=== PATIENT | female | born 1960 | race Caucasian/White ===

== ENCOUNTER 2017-03-17 16:44 | Observation (INO) | payer SELFPAY ==
[2017-03-17 16:45] VITALS: BP 175/63; PULSE 102; RESP 20; TEMP 36.4; O2SAT 94; BMI 50.1
--- NOTE | 2017-03-17 16:55 | EKG12_ITS ---
Test Reason : FLU Blood Pressure : / mmHG Vent. Rate : 088 BPM Atrial Rate : 088 BPM P-R Int : 186 ms QRS Dur : 088 ms QT Int : 352 ms P-R-T Axes : 029 021 028 degrees QTc Int : 425 ms Normal sinus rhythm Nonspecific T wave abnormality Abnormal ECG Confirmed by ANGIE MEYERS, LANDON ([id number]), health editor ROSSANA CASTRO ([id number] on 03/19/2017 2:22:40 PM Referred By: Confirmed By:LANDON ADAMS MD
--- NOTE | 2017-03-17 16:55 | RAD_ITS ---
STUDY: X-RAY CHEST REASON FOR EXAM: Female, 57 years old. Fever with cough. TECHNIQUE: Single AP portable upright view of the chest. COMPARISON: Portable AP upright chest x-ray February 02, 2016. FINDINGS: The lungs are clear and moderately expanded. There is no demonstrated pleural abnormality. Normal size heart. Normal mediastinum and stefany. Normal visualized pulmonary arteries. There is stable tortuosity of the descending thoracic aorta. Normal visualized thoracic spine. Normal visualized ribs, clavicles, and shoulders. There is no demonstrated abnormality of the visualized soft tissue structures of the upper abdomen. RAD/Chest 1 View (Portable) IMPRESSION: No acute cardiopulmonary disease. Electronically Signed: Ayo Wang MD at 17:26 EST , Service support ,
--- NOTE | 2017-03-17 16:59 | ED.VISSUMM ---
- ER Visit Summary Date of Service: 03/17/17 Chief Complaint: Flu like symptoms History of Present Illness: The patient is a 57 F presenting with flulike symptoms. She states that she has been sick since Wednesday. She has had subjective fevers and myalgias. She has had a nonproductive cough. She complains of bilateral ear pain and sore throat. She complains of headache. She denies numbness or weakness. Denies abdominal pain, nausea, vomiting, diarrhea. She did receive a flu shot this year. She is taking ibuprofen at home. She complains of chest pain and shortness of breath. Denies other complaints. Physical Examination: Vitals are stable. Patient is afebrile. Alert no acute distress. HEENT exam is unremarkable. Neck is supple. Lungs are clear and equal bilaterally. Heart is regular and tachycardic. Abdomen is soft and nontender. Extremities are unremarkable. Skin is warm and dry. No focal neurologic deficit. Remainder of exam is unremarkable. Emergency Department Course and Treatment: She was given IV fluids. Chest x-ray shows no acute process. EKG is sinus rate of 88 with nonspecific T-wave changes. CBC is normal except for white count 3.8. Chemistries normal except BUN 19, creatinine 1.07. Troponin is negative. D-dimer 0.76. Influenza negative. CTA chest was obtained due to elevated d-dimer and is suboptimal with questionable PE left pulmonary artery, 4.5 cm aneurysm aorta with no dissection. Due to suboptimal CTA chest with elevated d-dimer and chest pain with tachycardia discussed with the hospitalist. Patient will be evaluated by Dr. Samayoa in the emergency department. Disposition: Observation Impression: Flu like illness, chest pain This note was generated with [employer] dictation software. It may contain incorrect words, spelling, and punctuation that were not noted in review of the chart prior to signing ED Disposition - Plan for ED Patient: Disposition: Acute Care Hospital [facility] Chief Complaint: General Illness
[2017-03-17 17:27] VITALS: BP 142/93; PULSE 90; RESP 20; O2SAT 92
[2017-03-17] MEDS: 0.9% Normal Saline 1,000 ML 1000 ML IV (17:28)
[2017-03-17 17:55] LABS: Absolute Lymphocyte Count 1.14 X10^3/ul (0.83-4.51); Absolute Neutrophil Count 1.7 X10^3/uL (2.0-7.7); Basophil# 0.02 X10^3/uL; Basophil% 0.5 % (0-1); Eosinophil# 0.11 X10^3/uL; Eosinophils% 2.9 % (0-5); Hematocrit 44.4 % (37-47); Hemoglobin 14.7 g/dl (12.0-15.0); Lymphocyte # 1.14 X10^3/ul (4.0); Lymphocyte % 30.3 % (19-41); Mean Corp Hgb Conc 33.1 g/gl (32-36); Mean Corpuscular Hgb 30.3 pg (27.0-32.0); Mean Corpuscular Volume 91.5 fL (81-99); Mean Platelet Vol. 10.5 fl (6.2-12.0); Monocyte# 0.74 X10^3/uL; Monocyte% 19.7 % (0-10); Neutrophil # 1.74 X10^3/uL (2.7-7.7); Neutrophil % 46.3 % (47-70); Platelet Count 183 K/mm3 (150-450); RBC Distribution Width CV 13.3 % (11.6-14.6); RBC Distribution Width SD 44.3 fl (35.1-43.9); Red Blood Count 4.85 M/mm3 (4.2-5.4); White Blood Count 3.8 K/mm3 (4.4-11.0)
[2017-03-17 18:13] LABS: D-Dimer Quantitative (DVT/PE) 0.76 FEU/ug/m (0.27-0.49)
--- NOTE | 2017-03-17 18:14 | ED.RN ---
DDIMER 0.76, DR. JARAMILLO AWARE.
[2017-03-17 18:15] LABS: POSITIVE COUNT NO; POSITIVE DIFFERENTIAL NO; POSITIVE MORPHOLOGY NO
--- NOTE | 2017-03-17 18:16 | CT_ITS ---
STUDY: CTA CHEST REASON FOR EXAM: Female, 57 years old. Cough, elevated d-dimer. RADIATION DOSAGE (If Supplied By Facility): CTDIvol = ( 33.29 ) mGy, DLP = ( 972.04 ) mGycm TECHNIQUE: The examination was performed with the intravenous administration of 100ML ml of Isovue 370 contrast material. Post-processing of the angiographic images was performed, with multiplanar reformation and 3D reconstruction. Individualized dose optimization techniques were used for this CT. COMPARISON: Portable AP upright chest x-ray 1709 hours. FINDINGS: Suboptimal enhancement of the main pulmonary artery and right and left pulmonary arteries compared to the left heart and thoracic aorta. Suboptimal enhancement of the bilateral peripheral pulmonary arteries. Diagnostic accuracy is limited. There is question of filling defect in a basilar left lower lobe pulmonary artery branch on series 601 images 178-184. There is 4.3 x 4.35 cm fusiform ectasia of the mid ascending aorta. At that same level, the mildly tortuous descending thoracic aorta is 2.15 x 1.9 cm. There is no demonstrated aortic dissection. Normal heart and pericardium. Normal mediastinum. Normal hilar regions. Normal visualized trachea and bronchi. The lungs are well expanded. Curvilinear density of probable scarring in the lingula of the left upper lobe. Otherwise normal pulmonary parenchyma. Normal pleura. Normal chest wall structures. There are degenerative changes of the lower thoracic spine with endplate osteophytes most prominent on the left at T11-12. Normal visualized upper abdomen. CT/CTA Chest W/WO Contrast IMPRESSION: 1. Suboptimal enhancement of the pulmonary arteries, limiting diagnostic accuracy. Question of nonocclusive pulmonary embolus in a basilar lobe branch of the left pulmonary artery. If clinical indication warrants additional imaging, nuclear medicine ventilation/perfusion scan is suggested. 2. 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 There is no demonstrated dissection. 3. Curvilinear scarring in the lingula of the left upper lobe. Electronically Signed: Ayo Wang MD at 19:30 EST , Service support ,
[2017-03-17 18:27] LABS: Anion Gap 8 (5-15); BUN 19 mg/dL (7-18); BUN/Creat Ratio 17.8 RATIO (10-20); Calcium,Total 8.8 mg/dL (8.5-10.1); Chloride 102 mmol/L (98-107); Creatinine, Serum 1.07 mg/dL (0.55-1.02); EST Glomerular Filtration Rate 56 mL/min (>60); Est Glom Filt Rate - Afr Amer 68 mL/min (>60); Estimated Creatinine Clearance 56.41 ml/min; Glucose 103 mg/dL (74-106); Potassium 3.8 mmol/L (3.5-5.1); Sodium Level 137 mmol/L (136-145)
[2017-03-17 19:43] VITALS: BP 136/91; PULSE 79; RESP 16; O2SAT 96
--- NOTE | 2017-03-17 20:43 | PCM.HP.STD ---
Problem List (1) Influenza Status: Acute (2) Pulmonary embolism Status: Acute Qualifiers: Pulmonary embolism type: other Chronicity: acute Acute cor pulmonale presence: without acute cor pulmonale Qualified Code(s): I26.99 - Other pulmonary embolism without acute cor pulmonale (3) Hypothyroid Status: Chronic (4) Depression Status: Chronic (5) Vertigo Status: Chronic History of Present Illness Date of Admission: 03/17/17 Chief Complaint: malaise and chest pain. The patient is a 57 year old F who has been ill since Wednesday, w malaise, fever, chills. Today started having anterior chest pain. Since she was not feeling any better came to the ED. She had an elevated D-dimer of 0.76 and underwent a CTA of the chest. The CTA had suboptimal enhancement of the PAs, but questioned a nonocclusive PE in a basilar low on the left. Pt also had a rapid flu that was negative. I discussed with the patient that she may have a provoke PE given relative imobility the past few days due to her illness. I told that a low probability VQ scan may not change my plan to treat her for a PE and recommended either 6 months of a NOAC v repeat CTA after IV hydration. She chose the latter, preferring to know she does have a PE or not, understanding the risks of repeat exposure to radiation and contrast.[] Past Medical History Past Medical History (Chronic Problems): Chronic Problems Hypothyroid (Chronic) Depression (Chronic) Vertigo (Chronic) Allergies oxycodone Adverse Reaction (Verified 03/17/17 16:46) Itching Home Medications: Ambulatory Orders Medication Instructions Recorded Arthritis Medication 1 tab PO DAILY 02/02/16 Levothyroxine [Synthroid] 50 mcg PO DAILY 02/02/16 Ondansetron [Zofran Odt] 4 mg PO Q8H PRN PRN #20 tablet 02/02/16 Cholecalciferol (Vitamin D3) 50,000 unit PO QWEEK 06/03/16 [Vitamin D] Citalopram Hydrobromide 20 mg PO DAILY 06/03/16 [Citalopram HBr] Diclofenac [Voltaren] 50 mg PO BIDCM 06/03/16 DiphenhydrAMINE [Benadryl] 25 mg PO BID PRN PRN #7 capsule 06/03/16 Hydrocodone/Acetaminophen [[place] 1 each PO Q4H PRN PRN #14 tablet 06/03/16 5-325 Tablet] Loratadine [Allergy Relief] 10 mg PO DAILY 06/03/16 Meclizine HCl [Antivert] 25 mg PO TID PRN PRN 06/03/16 Psychiatric History: Depression Smoking Status: Never smoker Tobacco Use: Non-smoker Alcohol: Rare - *Family History Maternal History Items: Diabetes, - - h/o pancreatitis w pseudocysts. Review of Systems Constitutional: Reports: Chills, Fever, Night Sweats, Malaise, Weakness. Denies: Anorexia Eyes: Denies: Blurred vision, Double vision HEENT: Denies: Head Aches, Sinus Congestion, Sinus Drainage Cardiovascular: Reports: Chest Pain, Edema - chronic, no acute changes. Denies: Palpitations Respiratory: Denies: Cough, Shortness of breath at rest, Sputum production Gastrointestinal: Denies: Abdominal Pain, Nausea, Vomiting Genitourinary: Denies: Dysuria Musculoskeletal: Denies: Joint Pain, Joint Tenderness Skin: Denies: Rash, Wounds Neurological: Reports: - - vertigo. Denies: Focal weakness, Numbness, Tingling Psychiatric: Reports: Depression. Denies: Anxiety Hematologic/ Lymphatic: Denies: Easy Bruising, Easy Bleeding VTE Information - Inpt Only VTE Present on Admission: Yes Patient Problems: Active and Suspected Problems Influenza (Acute) Pulmonary embolism (Acute) - Physical Exam General: Alert, Cooperative, No apparent distress, Well developed HEENT: Atraumatic, Normocephalic Oral: Moist Mucosa, No Gingival or Mucosal Lesions/ Ulcerations Neck: No Nodes, Thyroid Normal Size and Texture Lungs: Clear to auscultation, Normal air movement, No rhonchi, No wheeze Cardiovascular: Regular rate, Regular Rhythm, Normal S1, Normal S2 Abdomen: Bowel Sounds Present, Soft, Non Tender, Non-Distended, No Hepato-splenomegaly Extremities: No edema, No Calf Tenderness Skin: No rashes, No breakdown Musculoskeletal: No Tenderness to Palpation of Joints or Extremities, No Muscle Wasting Neurological: Deep Tendon Reflexes 2+/4 and Symmetrical, Neuro grossly intact, Sensory exam intact to light touch and pain, - - no clonus Psych/Mental Status: Normal Affect, Appropriate Vital Signs Temp Pulse Resp BP Pulse Ox 36.4 C L 79 16 136/91 H 96 03/17/17 16:45 03/17/17 19:43 03/17/17 19:43 03/17/17 19:43 03/17/17 19:43 Oxygen Delivery Method Room Air Weight: 145 kg Body Mass Index (BMI) 50.1 Microbiology Past 72 Hours 03/17/17 17:10 Influenza Types A,B Direct FA (ZACK) - Final Mucosa - Nasopharyngeal Laboratory Tests Past 24 Hrs 03/17/17 03/17/17 03/17/17 17:19 17:19 17:19 WBC 3.8 L RBC 4.85 Hgb 14.7 Hct 44.4 MCV 91.5 MCH 30.3 MCHC 33.1 RDW 13.3 RDW Differential 44.3 H Plt Count 183 MPV 10.5 Immature Gran % (Auto) 0.300 Neut % (Auto) 46.3 L Lymph % (Auto) 30.3 [place] % (Auto) 19.7 H Eos % (Auto) 2.9 Baso % (Auto) 0.5 Absolute Neuts (auto) 1.7 L Absolute Lymphs (auto) 1.14 Total Counted Not Reportable D-Dimer Quant (PE/DVT) 0.76 H* Sodium 137 Potassium 3.8 Chloride 102 Carbon Dioxide 27.0 Anion Gap 8 BUN 19 H Creatinine 1.07 H Estim Creat Clear Calc 56.41 Est GFR (MDRD) Af Amer 68 Est GFR (MDRD) Non-Af 56 L BUN/Creatinine Ratio 17.8 Glucose 103 Calcium 8.8 Troponin I < 0.02 Clinical Impression(s) from Imaging Studies Chest X-Ray 03/17/17 16:55 IMPRESSION: No acute cardiopulmonary disease. Electronically Signed: Ayo Wang MD at 17:26 EST , Service support , Chest CTA 03/17/17 18:16 IMPRESSION: 1. Suboptimal enhancement of the pulmonary arteries, limiting diagnostic accuracy. Question of nonocclusive pulmonary embolus in a basilar lobe branch of the left pulmonary artery. If clinical indication warrants additional imaging, nuclear medicine ventilation/perfusion scan is suggested. 2. 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 There is no demonstrated dissection. 3. Curvilinear scarring in the lingula of the left upper lobe. Electronically Signed: Ayo Wang MD at 19:30 EST , Service support , EKG reviewed and showed NSR w [id number] pattern Assessment/Plan Active and Suspected Problems Influenza (Acute) Pulmonary embolism (Acute) 1. Suspected PE start xarelto recheck CTA of chest, as I feel, a low probability VQ would not alter my treatment for her. I did recommend against repeat CTA and treating her for PE w NOACs given her recent relative immobility + EKG changes (though nonspecific). So, she will receive IVF and will repeat CTA on 03/18, if CTA negative for PE, then dc anticoagulation. If positive, will have case mgmt assist for med coverage as pt has no insurance (I did recommend, as per guidelines, NOACs >> coumadin) pt states her mother had history of phlebitis and was on coumadin, but unsure if she had a coagulopathy. 2. suspected influenza rapid flu negative check viral resp panel empirically start tamiflu Code Visit OBSV E&M: [id number] Initial observation care L3
--- NOTE | 2017-03-17 20:57 | HP.PCM_ITS ---
Problem List (1) Influenza Status: Acute (2) Pulmonary embolism Status: Acute Qualifiers: Pulmonary embolism type: other Chronicity: acute Acute cor pulmonale presence: without acute cor pulmonale Qualified Code(s): I26.99 - Other pulmonary embolism without acute cor pulmonale (3) Hypothyroid Status: Chronic (4) Depression Status: Chronic (5) Vertigo Status: Chronic History of Present Illness Date of Admission: 03/17/17 Chief Complaint: malaise and chest pain. The patient is a 57 year old F who has been ill since Wednesday, w malaise, fever , chills. Today started having anterior chest pain. Since she was not feeling any better came to the ED. She had an elevated D-dimer of 0.76 and underwent a CTA of the chest. The CTA had suboptimal enhancement of the PAs, but questioned a nonocclusive PE in a basilar low on the left. Pt also had a rapid flu that was negative. I discussed with the patient that she may have a provoke PE given relative imobility the past few days due to her illness. I told that a low probability VQ scan may not change my plan to treat her for a PE and recommended either 6 months of a NOAC v repeat CTA after IV hydration. She chose the latter, preferring to know she does have a PE or not, understanding the risks of repeat exposure to radiation and contrast.[] Past Medical History Past Medical History (Chronic Problems): Chronic Problems Hypothyroid (Chronic) Depression (Chronic) Vertigo (Chronic) Allergies oxycodone Adverse Reaction (Verified 03/17/17 16:46) Itching Home Medications: Ambulatory Orders Medication Instructions Recorded Arthritis Medication 1 tab PO DAILY 02/02/16 Levothyroxine [Synthroid] 50 mcg PO DAILY 02/02/16 Ondansetron [Zofran Odt] 4 mg PO Q8H PRN PRN #20 tablet 02/02/16 Cholecalciferol (Vitamin D3) 50,000 unit PO QWEEK 06/03/16 [Vitamin D] Citalopram Hydrobromide 20 mg PO DAILY 06/03/16 [Citalopram HBr] Diclofenac [Voltaren] 50 mg PO BIDCM 06/03/16 DiphenhydrAMINE [Benadryl] 25 mg PO BID PRN PRN #7 capsule 06/03/16 Hydrocodone/Acetaminophen [[place] 1 each PO Q4H PRN PRN #14 tablet 06/03/16 5-325 Tablet] Loratadine [Allergy Relief] 10 mg PO DAILY 06/03/16 Meclizine HCl [Antivert] 25 mg PO TID PRN PRN 06/03/16 Psychiatric History: Depression Smoking Status: Never smoker Tobacco Use: Non-smoker Alcohol: Rare - *Family History Maternal History Items: Diabetes, - - h/o pancreatitis w pseudocysts. Review of Systems Constitutional: Reports: Chills, Fever, Night Sweats, Malaise, Weakness. Denies : Anorexia Eyes: Denies: Blurred vision, Double vision HEENT: Denies: Head Aches, Sinus Congestion, Sinus Drainage Cardiovascular: Reports: Chest Pain, Edema - chronic, no acute changes. Denies : Palpitations Respiratory: Denies: Cough, Shortness of breath at rest, Sputum production Gastrointestinal: Denies: Abdominal Pain, Nausea, Vomiting Genitourinary: Denies: Dysuria Musculoskeletal: Denies: Joint Pain, Joint Tenderness Skin: Denies: Rash, Wounds Neurological: Reports: - - vertigo. Denies: Focal weakness, Numbness, Tingling Psychiatric: Reports: Depression. Denies: Anxiety Hematologic/ Lymphatic: Denies: Easy Bruising, Easy Bleeding VTE Information - Inpt Only VTE Present on Admission: Yes Patient Problems: Active and Suspected Problems Influenza (Acute) Pulmonary embolism (Acute) - Physical Exam General: Alert, Cooperative, No apparent distress, Well developed HEENT: Atraumatic, Normocephalic Oral: Moist Mucosa, No Gingival or Mucosal Lesions/ Ulcerations Neck: No Nodes, Thyroid Normal Size and Texture Lungs: Clear to auscultation, Normal air movement, No rhonchi, No wheeze Cardiovascular: Regular rate, Regular Rhythm, Normal S1, Normal S2 Abdomen: Bowel Sounds Present, Soft, Non Tender, Non-Distended, No Hepato- splenomegaly Extremities: No edema, No Calf Tenderness Skin: No rashes, No breakdown Musculoskeletal: No Tenderness to Palpation of Joints or Extremities, No Muscle Wasting Neurological: Deep Tendon Reflexes 2+/4 and Symmetrical, Neuro grossly intact, Sensory exam intact to light touch and pain, - - no clonus Psych/Mental Status: Normal Affect, Appropriate Vital Signs Temp Pulse Resp BP Pulse Ox 36.4 C L 79 16 136/91 H 96 03/17/17 16:45 03/17/17 19:43 03/17/17 19:43 03/17/17 19:43 03/17/17 19:43 Oxygen Delivery Method Room Air Weight: 145 kg Body Mass Index (BMI) 50.1 Microbiology Past 72 Hours 03/17/17 17:10 Influenza Types A,B Direct FA (ZACK) - Final Mucosa - Nasopharyngeal Laboratory Tests Past 24 Hrs 03/17/17 03/17/17 03/17/17 17:19 17:19 17:19 WBC 3.8 L RBC 4.85 Hgb 14.7 Hct 44.4 MCV 91.5 MCH 30.3 MCHC 33.1 RDW 13.3 RDW Differential 44.3 H Plt Count 183 MPV 10.5 Immature Gran % (Auto) 0.300 Neut % (Auto) 46.3 L Lymph % (Auto) 30.3 [place] % (Auto) 19.7 H Eos % (Auto) 2.9 Baso % (Auto) 0.5 Absolute Neuts (auto) 1.7 L Absolute Lymphs (auto) 1.14 Total Counted Not Reportable D-Dimer Quant (PE/DVT) 0.76 H* Sodium 137 Potassium 3.8 Chloride 102 Carbon Dioxide 27.0 Anion Gap 8 BUN 19 H Creatinine 1.07 H Estim Creat Clear Calc 56.41 Est GFR (MDRD) Af Amer 68 Est GFR (MDRD) Non-Af 56 L BUN/Creatinine Ratio 17.8 Glucose 103 Calcium 8.8 Troponin I < 0.02 Clinical Impression(s) from Imaging Studies Chest X-Ray 03/17/17 16:55 IMPRESSION: No acute cardiopulmonary disease. Electronically Signed: Ayo Wang MD at 17:26 EST , Service support , Chest CTA 03/17/17 18:16 IMPRESSION: 1. Suboptimal enhancement of the pulmonary arteries, limiting diagnostic accuracy. Question of nonocclusive pulmonary embolus in a basilar lobe branch of the left pulmonary artery. If clinical indication warrants additional imaging, nuclear medicine ventilation/perfusion scan is suggested. 2. 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 There is no demonstrated dissection. 3. Curvilinear scarring in the lingula of the left upper lobe. Electronically Signed: Ayo Wang MD at 19:30 EST , Service support , EKG reviewed and showed NSR w [id number] pattern Assessment/Plan Active and Suspected Problems Influenza (Acute) Pulmonary embolism (Acute) 1. Suspected PE * start xarelto * recheck CTA of chest, as I feel, a low probability VQ would not alter my treatment for her. I did recommend against repeat CTA and treating her for PE w NOACs given her recent relative immobility + EKG changes (though nonspecific). So, she will receive IVF and will repeat CTA on 03/18, if CTA negative for PE, then dc anticoagulation. If positive, will have case mgmt assist for med coverage as pt has no insurance (I did recommend, as per guidelines, NOACs >> coumadin) * pt states her mother had history of phlebitis and was on coumadin, but unsure if she had a coagulopathy. 2. suspected influenza * rapid flu negative * check viral resp panel * empirically start tamiflu Code Visit OBSV E&M: [id number] Initial observation care L3
[2017-03-17 21:04] VITALS: BP 148/82; PULSE 78; RESP 20; O2SAT 96
[2017-03-17 21:05] VITALS: BP 148/82; PULSE 78; RESP 20; O2SAT 96
[2017-03-17 21:31] VITALS: BMI 48.4; BMI 48.5
[2017-03-17 22:00] VITALS: BP 129/84; PULSE 86; RESP 18; TEMP 37.3; O2SAT 95
[2017-03-17] MEDS: 0.9% Normal Saline 1,000 ML 200 ML IV (22:43)
[2017-03-17] MEDS: Citalopram 20 MG Tablet PO (22:43)
[2017-03-17] MEDS: 0.9% NaCl Peripheral Flush Adult/Peds IV (22:43)
[2017-03-17] MEDS: Rivaroxaban 15 MG Tablet PO (22:44)
[2017-03-17] MEDS: Oseltamivir Phosphate 30 MG Capsule PO (22:44)
[2017-03-18 03:44] VITALS: BP 125/74; PULSE 79; RESP 16; TEMP 37.1; O2SAT 98
[2017-03-18] MEDS: HYDROcodone Bitartrate/Apap 5/325 Tablet PO ×2 (03:53→09:54)
[2017-03-18] MEDS: Levothyroxine 50 MCG Tablet PO (05:38)
--- NOTE | 2017-03-18 05:55 | CT_ITS ---
STUDY: CTA CHEST REASON FOR EXAM: Female, 57 years old. Chest pain RADIATION DOSAGE (If Supplied By Facility): CTDIvol = ( 23.82 ) mGy, DLP = ( 984.08 ) mGycm TECHNIQUE: The examination was performed with the intravenous administration of 100 ml of Isovue 370 contrast material. Post-processing of the angiographic images was performed, with multiplanar reformation and 3D reconstruction. Individualized dose optimization techniques were used for this CT. COMPARISON: Primary 2017 FINDINGS: There is suboptimal enhancement of the main pulmonary artery and right and left pulmonary arteries. There is suboptimal enhancement of the bilateral peripheral pulmonary arteries. There is no gross demonstrated pulmonary embolism. The ascending aorta measures 4.7 x 4.6 cm in diameter. The descending aorta measures 2.2 x 2.2 cm in diameter There is no demonstrated aortic dissection. Normal heart and pericardium. Normal mediastinum. Normal hilar regions. Normal visualized trachea and bronchi. There is minimal atelectasis within the mid and lower left lung. Normal chest wall structures. There are degenerative changes of thoracic spine. The limited images of the upper abdomen demonstrate diffusely low in attenuation liver consistent with fatty infiltration. CT/CTA Chest W/WO Contrast IMPRESSION: No demonstrated pulmonary embolism or arterial dissection. Minimal left-sided atelectasis. Ascending aortic aneurysm. Fatty infiltration of the liver. Electronically Signed: Nichelle Nieves MD at 19:13 EST Tel , Service support ,
[2017-03-18 06:21] LABS: Absolute Lymphocyte Count 1.12 X10^3/ul (0.83-4.51); Absolute Neutrophil Count 1.1 X10^3/uL (2.0-7.7); Basophil# 0.02 X10^3/uL; Basophil% 0.7 % (0-1); Eosinophil# 0.06 X10^3/uL; Hematocrit 38.6 % (37-47); Lymphocyte # 1.12 X10^3/ul (4.0); Lymphocyte % 36.5 % (19-41); Mean Corp Hgb Conc 33.7 g/gl (32-36); Mean Corpuscular Hgb 30.9 pg (27.0-32.0); Mean Corpuscular Volume 91.7 fL (81-99); Mean Platelet Vol. 10.6 fl (6.2-12.0); Monocyte# 0.78 X10^3/uL; Monocyte% 25.4 % (0-10); Neutrophil # 1.08 X10^3/uL (2.7-7.7); Neutrophil % 35.1 % (47-70); Platelet Count 166 K/mm3 (150-450); RBC Distribution Width CV 13.2 % (11.6-14.6); RBC Distribution Width SD 43.9 fl (35.1-43.9); Red Blood Count 4.21 M/mm3 (4.2-5.4); White Blood Count 3.1 K/mm3 (4.4-11.0)
[2017-03-18 06:23] LABS: POSITIVE COUNT NO; POSITIVE DIFFERENTIAL NO; POSITIVE MORPHOLOGY NO
[2017-03-18 06:50] LABS: Anion Gap 10 (5-15); BUN 18 mg/dL (7-18); BUN/Creat Ratio 19.8 RATIO (10-20); Calcium,Total 8.1 mg/dL (8.5-10.1); Chloride 104 mmol/L (98-107); Creatinine, Serum 0.91 mg/dL (0.55-1.02); EST Glomerular Filtration Rate 68 mL/min (>60); Est Glom Filt Rate - Afr Amer 82 mL/min (>60); Estimated Creatinine Clearance 66.33 ml/min; Glucose 106 mg/dL (74-106); Potassium 4.2 mmol/L (3.5-5.1); Sodium Level 138 mmol/L (136-145)
[2017-03-18] MEDS: DiphenhydrAMINE 25 MG Capsule PO (07:07)
[2017-03-18] MEDS: Loratadine 10 MG Tablet PO (08:26)
[2017-03-18] MEDS: Oseltamivir Phosphate 30 MG Capsule PO (08:26)
[2017-03-18] MEDS: Rivaroxaban 15 MG Tablet PO ×2 (08:27→16:44)
[2017-03-18 08:32] VITALS: BP 127/77; PULSE 67; RESP 16; TEMP 36.7; O2SAT 95
[2017-03-18 11:09] VITALS: BP 136/90; PULSE 75; RESP 16; TEMP 36.4; O2SAT 95
[2017-03-18] MEDS: Nystatin Powder 15gm Bottle 1 APPLIC TOPICAL (12:20)
--- NOTE | 2017-03-18 13:15 | CASEMGMT ---
Social Work Note Face to face with pt to discuss discharge planning. Introduced self and role at [facility]. Pt reports that she was working last year, had a lapse in employment and was on Medicaid and then was employed again, but for fewer hours and less income. States that she intends on reapplying for Medicaid and providing proof of lower income. Offer Medicaid application to pt and inform that SW can fax once completed to have process initiated. Pt reports that she can fax it from work. States she does not have money for medications if needed. Educate to community resources/options. Will try [facility] if she needs medications and if they are unable to assist will implement RX Assist program. SW to continue to follow and assist with discharge planning. Lidya Bentley, PATIENT ASSESSMENT COORDINATOR [employer]
--- NOTE | 2017-03-18 13:50 | PN_ITS ---
Patient Problems: Active and Suspected Problems Influenza (Acute) Pulmonary embolism (Acute) Subjective: Chief complaint: Follow-up after admission for influenza B and questionable pulmonary embolism. Patient seen and examined. No acute events overnight.. Denied shortness of breath. Reported mild nasal congestion which improved. Vital signs are stable , afebrile. - Physical Exam General: Alert, Oriented x3, Cooperative, No apparent distress HEENT: Atraumatic, PERRLA, EOMI Oral: Moist Mucosa, No Gingival or Mucosal Lesions/ Ulcerations Neck: Supple, No JVD, Negative Carotid Bruits, Trachea Midline, Thyroid Normal Size and Texture Lungs: Clear to auscultation, No rhonchi, No wheeze, No rales, Diminished Cardiovascular: Regular rate, Regular Rhythm, Normal S1, Normal S2, No murmurs, PMI Normal Abdomen: Bowel Sounds Present, Soft, Non Tender, Non-Distended, No Hepato- splenomegaly Extremities: No clubbing, No cyanosis, No edema Skin: No rashes, No breakdown Lymphatic: No Cervical, Supraclavicular, or Inguinal Adenopathy Neurological: Cranial nerves II-XII grossly intact, Motor Exam 5/5 strength throughout Psych/Mental Status: Normal Affect, Appropriate, Alert and oriented to time, place, person, mood and affect Vital Signs Temp Pulse Resp BP Pulse Ox 97.5 F L 75 16 136/90 H 95 03/18/17 11:09 03/18/17 11:09 03/18/17 11:09 03/18/17 11:09 03/18/17 11:09 Oxygen Delivery Method Room Air Weight: 314 lb 2.539 oz Body Mass Index (BMI) 48.4 Intake and Output for Last 24 Hours 03/16/17 03/17/17 03/18/17 23:59 23:59 23:59 Intake Total 600 / 600 Output Total 300 / 300 Balance 300 / 300 Microbiology Past 72 Hours 03/17/17 23:00 Respiratory Panel (PCR) - Final Mucosa - Nasopharyngeal Influenza A (Subtype H3) Laboratory Tests Past 24 Hrs 03/18/17 03/18/17 05:52 05:52 WBC 3.1 L RBC 4.21 Hgb 13.0 Hct 38.6 MCV 91.7 MCH 30.9 MCHC 33.7 RDW 13.2 RDW Differential 43.9 Plt Count 166 MPV 10.6 Immature Gran % (Auto) 0.300 Neut % (Auto) 35.1 L Lymph % (Auto) 36.5 [place] % (Auto) 25.4 H Eos % (Auto) 2.0 Baso % (Auto) 0.7 Absolute Neuts (auto) 1.1 L Absolute Lymphs (auto) 1.12 Total Counted Not Reportable Sodium 138 Potassium 4.2 Chloride 104 Carbon Dioxide 24.0 Anion Gap 10 BUN 18 Creatinine 0.91 Estim Creat Clear Calc 66.33 Est GFR (MDRD) Af Amer 82 Est GFR (MDRD) Non-Af 68 BUN/Creatinine Ratio 19.8 Glucose 106 Calcium 8.1 L Clinical Impression(s) from Imaging Studies Chest X-Ray 03/17/17 16:55 IMPRESSION: No acute cardiopulmonary disease. Electronically Signed: Ayo Wang MD at 17:26 EST , Service support , Chest CTA 03/17/17 18:16 IMPRESSION: 1. Suboptimal enhancement of the pulmonary arteries, limiting diagnostic accuracy. Question of nonocclusive pulmonary embolus in a basilar lobe branch of the left pulmonary artery. If clinical indication warrants additional imaging, nuclear medicine ventilation/perfusion scan is suggested. 2. 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 There is no demonstrated dissection. 3. Curvilinear scarring in the lingula of the left upper lobe. Electronically Signed: Ayo Wang MD at 19:30 EST , Service support , Assessment/Plan Active and Suspected Problems Influenza (Acute) Pulmonary embolism (Acute) This is a 57 years old female patient presented to the emergency room because of flulike symptoms as well as chest pain which seemed to be pleuritic, found to have acute influenza B as well as questionable pulmonary embolus in the basilar lobe branch of the left pulmonary artery. #1 acute influenza B: On Tamiflu. She is on Tylenol and she was on IV fluids. She reported improvement of her symptoms. Chest x-ray showed no acute findings. Plan: Continue same treatment. If the repeat CTA chest returned back negative for acute PE, patient can be discharged home later today. She will be discharged on Tamiflu to complete 5 days of treatment. #2 questionable left pulmonary embolus: This involved basal branch of the left pulmonary artery, which was questionable. Patient was started empirically on Xarelto for anticoagulation. She has no risk factors for blood clots. Clinical evidence of acute DVT. Plan to repeat CTA chest later today as she received contrast yesterday for the CTA chest. We will continue empiric Xarelto for now. #3 hypothyroidism: Continue levothyroxine. #4 depression: Continue Celexa. #5 chronic vertigo: Continue Antivert as needed #6 DVT prophylaxis: Continue Xarelto. This note was generated with [employer] dictation software. It may contain incorrect words, spelling, and punctuation that were not noted in checking the note before signing.
--- NOTE | 2017-03-18 13:51 | PCM.DC ---
- Discharge Diagnoses Current Active Problems: Current Active and Chronic Problems Influenza (Acute) Pulmonary embolism (Acute) Hypothyroid (Chronic) Depression (Chronic) Vertigo (Chronic) You will use the following diet at home:: Regular Your food should be the consistency of: Regular Discharge Activity: Return to Normal Activity Weight Bearing Status: Full weight bearing Call your doctor if you observe: Fever of 101 or Higher, Shortness of breath, Dizziness, Fainting spells, Chest pain, Increased palpitations (irregular heartbeat), Uncontrolled pain Allergies/Adverse Reactions: Allergies oxycodone Adverse Reaction (Verified 03/17/17 16:46) Itching Medications to take at Discharge Arthritis Medication 1 tab PO DAILY 02/02/16 Levothyroxine [Synthroid] 50 mcg PO DAILY 02/02/16 Ondansetron [Zofran Odt] 4 mg PO Q8H PRN PRN #20 tablet 02/02/16 Citalopram Hydrobromide [Citalopram HBr] 20 mg PO QHS 06/03/16 Loratadine [Allergy Relief] 10 mg PO QHS PRN PRN 06/03/16 Meclizine HCl [Antivert] 25 mg PO TID PRN PRN 06/03/16 Oseltamivir Phosphate [Tamiflu] 30 mg PO BID #8 cap 03/18/17 The following prescriptions were given: Oseltamivir Phosphate [Tamiflu] 30 mg PO BID #8 cap Primary Care Physician: Marta Lyle DO [Primary Care Provider] - Please follow up with your Primary Care Physician in: 4 week.
[2017-03-18] MEDS: 0.9% Normal Saline 1,000 ML 100 ML IV (15:09)
[2017-03-18] MEDS: Acetylcysteine (Mucomyst Oral) 20% SOLN 600 MG PO (15:09)
[2017-03-18 15:15] VITALS: BP 131/66; PULSE 66; RESP 16; TEMP 36.7; O2SAT 95
--- NOTE | 2017-03-18 15:42 | CASEMGMT ---
Social Work Note Placed call to [facility] to have script for Tamiflu priced. Generic would be $79.87. Updated pt and she reports that she only has $3 to her name right now. Inform that SW will check alternative resources. Placed call to [facility] who state that they are not able to assist at this time. Discussed script with transportation operations manager, Olga, as our pharmacy only has 75 mg in stock, not 30. RN spoke with physician who approved change in dosing. Submitted form for RX Assist Program and requested that medication be delivered to the pt's room as she will not discharge until late this evening. Scripts and completed Rx Assist Form tubed to pharmacy. Lidya Bentley, ASSISTANT ADMINISTRATOR, BUFFING WHEEL OPERATOR
[2017-03-18 19:57] VITALS: BP 125/76; PULSE 72; RESP 16; TEMP 37; O2SAT 99
--- NOTE | 2017-03-19 09:09 | PCM.DC.SUM ---
Discharge Date and Diagnosis Date of Admission: 03/17/17 Date of Discharge: 03/18/17 - Primary Discharge Diagnosis #1 acute influenza A. #2 elevated d-dimer, questionable left lung PE which was ruled out. - Secondary Discharge Diagnosis Chronic Problems Hypothyroid (Chronic) Depression (Chronic) Vertigo (Chronic) Hospital Course and Treatment Imaging Results: Clinical Impression(s) from Imaging Studies Chest X-Ray 03/17/17 16:55 IMPRESSION: No acute cardiopulmonary disease. Electronically Signed: Ayo Wang MD at 17:26 EST , Service support , Chest CTA 03/17/17 18:16 IMPRESSION: 1. Suboptimal enhancement of the pulmonary arteries, limiting diagnostic accuracy. Question of nonocclusive pulmonary embolus in a basilar lobe branch of the left pulmonary artery. If clinical indication warrants additional imaging, nuclear medicine ventilation/perfusion scan is suggested. 2. 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 There is no demonstrated dissection. 3. Curvilinear scarring in the lingula of the left upper lobe. Electronically Signed: Ayo Wang MD at 19:30 EST , Service support , Chest CTA 03/18/17 05:55 IMPRESSION: No demonstrated pulmonary embolism or arterial dissection. Minimal left-sided atelectasis. Ascending aortic aneurysm. Fatty infiltration of the liver. Electronically Signed: Nichelle Nieves MD at 19:13 EST Tel , Service support , Operations: None Procedures: None Summary of Care Provided: The patient is a 57 year old F admitted because of flulike symptoms as well as pleuritic chest pain and she was found to have acute influenza B as well as questionable pulmonary embolus and the basilar lobe branch of the left pulmonary artery. Patient had CTA chest on admission for elevated d-dimer and that revealed questionable nonocclusive pulmonary embolus in the basal branch of the left pulmonary artery. Patient was started on Eliquis empirically. Nasal swab for influenza a and B were negative but respiratory panel for viruses by PCR came back positive for influenza A. She was treated with IV fluids, decongestants and Tamiflu for influenza B. She had no risk factors for PEs or DVTs. There was no clinical evidence of acute DVT. EKG revealed normal sinus rhythm without acute ischemic changes. Her routine blood work was unremarkable. Her vital signs were stable and she was afebrile. CTA chest repeated and showed no evidence of acute PE or dissection, pulmonary embolus ruled out. With above-mentioned treatment, patient symptoms improved and she remained on room air with normal pulse oximeter. Patient discharged home in a stable medical condition, discharged on Tamiflu to complete 5 days of treatment, continued on her chronic home medication without any changes, recommended follow-up with PCP in 4 weeks. Discharge Activity: Return to Normal Activity Weight Bearing Status: Full weight bearing Call your doctor if you observe: Fever of 101 or Higher, Shortness of breath, Dizziness, Fainting spells, Chest pain, Increased palpitations (irregular heartbeat), Uncontrolled pain Home Medications: Medications to take at Discharge Arthritis Medication 1 tab PO DAILY 02/02/16 Levothyroxine [Synthroid] 50 mcg PO DAILY 02/02/16 Ondansetron [Zofran Odt] 4 mg PO Q8H PRN PRN #20 tablet 02/02/16 Citalopram Hydrobromide [Citalopram HBr] 20 mg PO QHS 06/03/16 Loratadine [Allergy Relief] 10 mg PO QHS PRN PRN 06/03/16 Meclizine HCl [Antivert] 25 mg PO TID PRN PRN 06/03/16 Oseltamivir Phosphate [Tamiflu] 30 mg PO BID #8 cap 03/18/17 Following Prescrptions Were Given to Patient: Oseltamivir Phosphate [Tamiflu] 30 mg PO BID #8 cap Primary Care Physician: Marta Lyle DO [Primary Care Provider] - Please follow up with your Primary Care Physician in: 4 week. Disposition: Home Minutes spent on discharge:: 25 Patient Condition:: Stable Meaningful Use Info Meaningful Use Diagnoses (Choose all that apply): None applicable Code Visit OBSV E&M: 97150 Observation care discharge
--- NOTE | 2017-03-19 09:14 | DS.PCM_ITS ---
Discharge Date and Diagnosis Date of Admission: 03/17/17 Date of Discharge: 03/18/17 - Primary Discharge Diagnosis #1 acute influenza A. #2 elevated d-dimer, questionable left lung PE which was ruled out. - Secondary Discharge Diagnosis Chronic Problems Hypothyroid (Chronic) Depression (Chronic) Vertigo (Chronic) Hospital Course and Treatment Imaging Results: Clinical Impression(s) from Imaging Studies Chest X-Ray 03/17/17 16:55 IMPRESSION: No acute cardiopulmonary disease. Electronically Signed: Ayo Wang MD at 17:26 EST , Service support , Chest CTA 03/17/17 18:16 IMPRESSION: 1. Suboptimal enhancement of the pulmonary arteries, limiting diagnostic accuracy. Question of nonocclusive pulmonary embolus in a basilar lobe branch of the left pulmonary artery. If clinical indication warrants additional imaging, nuclear medicine ventilation/perfusion scan is suggested. 2. 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 There is no demonstrated dissection. 3. Curvilinear scarring in the lingula of the left upper lobe. Electronically Signed: Ayo Wang MD at 19:30 EST , Service support , Chest CTA 03/18/17 05:55 IMPRESSION: No demonstrated pulmonary embolism or arterial dissection. Minimal left-sided atelectasis. Ascending aortic aneurysm. Fatty infiltration of the liver. Electronically Signed: Nichelle Nieves MD at 19:13 EST Tel , Service support , Operations: None Procedures: None Summary of Care Provided: The patient is a 57 year old F admitted because of flulike symptoms as well as pleuritic chest pain and she was found to have acute influenza B as well as questionable pulmonary embolus and the basilar lobe branch of the left pulmonary artery. Patient had CTA chest on admission for elevated d-dimer and that revealed questionable nonocclusive pulmonary embolus in the basal branch of the left pulmonary artery. Patient was started on Eliquis empirically. Nasal swab for influenza a and B were negative but respiratory panel for viruses by PCR came back positive for influenza A. She was treated with IV fluids, decongestants and Tamiflu for influenza B. She had no risk factors for PEs or DVTs. There was no clinical evidence of acute DVT. EKG revealed normal sinus rhythm without acute ischemic changes. Her routine blood work was unremarkable. Her vital signs were stable and she was afebrile. CTA chest repeated and showed no evidence of acute PE or dissection, pulmonary embolus ruled out. With above-mentioned treatment, patient symptoms improved and she remained on room air with normal pulse oximeter. Patient discharged home in a stable medical condition, discharged on Tamiflu to complete 5 days of treatment , continued on her chronic home medication without any changes, recommended follow-up with PCP in 4 weeks. Discharge Activity: Return to Normal Activity Weight Bearing Status: Full weight bearing Call your doctor if you observe: Fever of 101 or Higher, Shortness of breath, Dizziness, Fainting spells, Chest pain, Increased palpitations (irregular heartbeat), Uncontrolled pain Home Medications: Medications to take at Discharge Arthritis Medication 1 tab PO DAILY 02/02/16 Levothyroxine [Synthroid] 50 mcg PO DAILY 02/02/16 Ondansetron [Zofran Odt] 4 mg PO Q8H PRN PRN #20 tablet 02/02/16 Citalopram Hydrobromide [Citalopram HBr] 20 mg PO QHS 06/03/16 Loratadine [Allergy Relief] 10 mg PO QHS PRN PRN 06/03/16 Meclizine HCl [Antivert] 25 mg PO TID PRN PRN 06/03/16 Oseltamivir Phosphate [Tamiflu] 30 mg PO BID #8 cap 03/18/17 Following Prescrptions Were Given to Patient: Oseltamivir Phosphate [Tamiflu] 30 mg PO BID #8 cap Primary Care Physician: Marta Lyle DO [Primary Care Provider] - Please follow up with your Primary Care Physician in: 4 week. Disposition: Home Minutes spent on discharge:: 25 Patient Condition:: Stable Meaningful Use Info Meaningful Use Diagnoses (Choose all that apply): None applicable Code Visit OBSV E&M: 80869 Observation care discharge
== END 2017-03-18 20:12 | disposition home or self-care (01) ==
LOC: ED 17:44 → MS3 20:53
PROVIDERS: Emergency Provider Emergency Medicine; Visit Provider Hospitalist
DX: J10.1 Influenza due to other identified influenza virus with other respiratory manifestations (principal); E03.9 Hypothyroidism, unspecified; Z79.899 Other long term (current) drug therapy; F32.9 Major depressive disorder, single episode, unspecified; R42 Dizziness and giddiness
CPT/HCPCS: 36415; 71045; 71275; 80048; 84484; 85025; 85379; 87633; 87804; 93005; 96360; 96361; 99218; 99285; J7030; Q9967; A4216; G0378

== ENCOUNTER 2017-04-12 08:50 | Emergency (ER) | payer SELFPAY ==
[2017-04-12 08:51] VITALS: BP 169/106
[2017-04-12 08:52] VITALS: PULSE 86; RESP 16; TEMP 36.3; O2SAT 97; BMI 48.3
--- NOTE | 2017-04-12 09:01 | EKG12_ITS ---
Test Reason : RIGHT SIDE PAIN Blood Pressure : / mmHG Vent. Rate : 085 BPM Atrial Rate : 085 BPM P-R Int : 200 ms QRS Dur : 098 ms QT Int : 374 ms P-R-T Axes : 053 014 -07 degrees QTc Int : 445 ms Sinus rhythm with occasional Premature ventricular complexes Otherwise normal ECG Confirmed by TAYLOR MEYERS, JOSE LUIS ([id number]), graphics editor ROSSANA CASTRO ([id number]) on 04/13/2017 2:21:55 PM Referred By: DILCIA/ELLA Confirmed By:JOSE LUIS VAZQUEZ MD
--- NOTE | 2017-04-12 09:06 | ED.VISSUMM ---
- ER Visit Summary Date of Service: 04/12/17 Chief Complaint: Abdominal pain History of Present Illness: The patient is a 57 F worsening right upper quadrant abdominal pain and pain into the shoulder last evening after eating. Nausea without vomiting. History of cholecystectomy. States took 3 ibuprofen since more with no relief. Pain is 6 out of 10. Normal bowel movement. Normal urinary symptoms. Pain worse with deep breaths. No cough. No PE risk factors. Was admitted in the hospital a month ago for influenza had concerns of PE and initial CT scan. However repeat CT scan of the chest ruled out PE. States that kidney stones in the past, symptoms are not similar. She had a ureteral stent little over a year ago due to her kidney stone. Physical Examination: General: Alert and oriented ?3, no acute distress HEENT: Normocephalic, atraumatic. Moist mucosa membranes Neck: supple, nontender. Cardiovascular: Regular rate and rhythm, no murmurs Respiratory: Normal breath sounds, symmetric, no distress Abdomen: Soft, focal right upper quadrant tenderness without guarding or rebound, nondistended. Negative McBurney's tenderness. Extremities: Nontender, no edema, pulses intact ?4 Neuro: no focal neurological deficits. Test Results: EKG: Sinus rate of 85, no ST changes. Normal axis. T-wave inversions on lateral leads. Abdominal labs: Normal. CT abdomen pelvis: Moderate stools, stable 1 cm liver cysts. Diverticula without diverticulitis. Emergency Department Course and Treatment: Patient with focal tenderness right upper quadrant, gallbladder has been removed. I did check abdominal labs which was normal. She was treated with morphine and Zofran initially, return states her pain after medicines can radiate to her left side. There is no vomiting. Due to her worsening symptoms did obtain a CAT scan which returned with no acute process. Patient did complain of pain with food. Discussed with patient will start on a PPI. She will monitor her stools. She does state she has daily bowel movements. She will monitor symptoms and follow-up with her PCP. She return if any worsening symptoms. All questions were answered. Patient with no PE risk factors. Condition she had CTAs for chest ?2 within the last month it has been negative. Treatment Plan: [] Disposition: Discharge Impression: 1. Abdominal pain This note was generated with [employer] software. It may contain incorrect words, spelling, and punctuation that were not noted in review of the chart prior to signing ED Disposition - Plan for ED Patient: Disposition: Home or Assisted Living Chief Complaint: Abd Pain Diagnosis: Abdominal pain Instructions: ED Abdominal Pain Unkn Cause Prescriptions: Omeprazole 40 mg PO DAILY #30 capsule. Referrals: Marta Lyle DO [Primary Care Provider] - 3-5 Days
[2017-04-12] MEDS: 0.9% Normal Saline 1,000 ML 125 ML IV (09:49)
[2017-04-12] MEDS: Ondansetron 4 MG/2 ML Vial IV (09:50)
[2017-04-12 09:52] LABS: Absolute Lymphocyte Count 1.18 X10^3/ul (0.83-4.51); Basophil# 0.01 X10^3/uL; Basophil% 0.1 % (0-1); Eosinophil# 0.14 X10^3/uL; Eosinophils% 1.5 % (0-5); Hemoglobin 14.3 g/dl (12.0-15.0); Lymphocyte # 1.18 X10^3/ul (4.0); Lymphocyte % 12.6 % (19-41); Mean Corp Hgb Conc 33.3 g/gl (32-36); Mean Corpuscular Hgb 30.2 pg (27.0-32.0); Mean Corpuscular Volume 90.7 fL (81-99); Mean Platelet Vol. 10.3 fl (6.2-12.0); Monocyte# 0.93 X10^3/uL; Neutrophil # 7.04 X10^3/uL (2.7-7.7); Neutrophil % 75.5 % (47-70); POSITIVE COUNT NO; POSITIVE DIFFERENTIAL NO; POSITIVE MORPHOLOGY NO; Platelet Count 183 K/mm3 (150-450); RBC Distribution Width SD 42.9 fl (35.1-43.9); Red Blood Count 4.74 M/mm3 (4.2-5.4); White Blood Count 9.3 K/mm3 (4.4-11.0)
[2017-04-12 10:18] LABS: AST(SGOT) 17 U/L (15-37); Alanine Aminotransfer ALT/SGPT 21 U/L (13-56); Albumin, Serum 3.1 g/dL (3.2-5.0); Alkaline Phosphatase 95 U/L (45-117); Anion Gap 9 (5-15); BUN 23 mg/dL (7-18); Bilirubin, Direct < 0.05 mg/dL (0.00-0.30); Calcium,Total 8.8 mg/dL (8.5-10.1); Chloride 102 mmol/L (98-107); Creatinine, Serum 0.88 mg/dL (0.55-1.02); EST Glomerular Filtration Rate 70 mL/min (>60); Est Glom Filt Rate - Afr Amer 85 mL/min (>60); Estimated Creatinine Clearance 71.15 ml/min; Globulin 4.6 g/dL (2.2-4.2); Glucose 110 mg/dL (74-106); Lipase 107 U/L (73-393); Protein, Total 7.7 g/dL (6.4-8.2); Sodium Level 139 mmol/L (136-145)
--- NOTE | 2017-04-12 10:35 | CT_ITS ---
STUDY: CT ABDOMEN AND PELVIS WITHOUT CONTRAST REASON FOR EXAM: Female, 57 years old. Upper abdominal pain and chest pain. History of kidney stones. RADIATION DOSAGE (If Supplied By Facility): CTDIvol = ( 24.18 ) mGy, DLP = ( 1280.61 ) mGycm TECHNIQUE: Transaxial images were obtained from the dome of the diaphragm to the symphysis pubis without oral contrast, and without intravenous contrast. Sagittal and coronal images were reconstructed. Individualized dose optimization techniques were used for this CT. COMPARISON: Comparison is made with prior study dated June 03, 2016. FINDINGS: Stable minimal increased markings at the lung bases suggestive of atelectasis and/or scarring. Coronary artery calcification. There is decreased attenuation of the liver consistent with steatosis. Stable 1 cm cyst in the dome of the right lobe of the liver. There are surgical clips in the gallbladder fossa consistent with a prior cholecystectomy. Normal spleen. Normal pancreas. Normal bilateral adrenal glands. Punctate calcification in the lower pole calyx of the right kidney. Normal left kidney. Normal visualized stomach. Normal small intestine. There are multiple colonic diverticula consistent with diverticulosis. There is non-visualization of the appendix. There is scattered atherosclerotic calcification of the abdominal aorta, without a demonstrated aneurysm. Normal inferior vena cava. Normal retroperitoneum. Normal urinary bladder. Normal abdominal wall. There are diffuse degenerative changes of the visualized lumbar spine. CT/Abdomen/Pelvis without Cont IMPRESSION: Scattered sigmoid diverticula. Moderate amount of fecal material is seen in the colon. Fatty infiltration of the liver. Electronically Signed: Kevan Fernandes MD at 11:25 EST Tel [phone], Service support ,
[2017-04-12 11:10] VITALS: BP 144/73; PULSE 88; RESP 14; O2SAT 95
[2017-04-12 11:46] VITALS: BP 140/80; PULSE 82; RESP 14; O2SAT 99
== END 2017-04-12 11:52 | disposition home or self-care (01) ==
PROVIDERS: Emergency Provider Emergency Medicine
DX: R10.11 Right upper quadrant pain (principal); R11.0 Nausea; K76.89 Other specified diseases of liver; K57.30 Diverticulosis of large intestine without perforation or abscess without bleeding; E66.9 Obesity, unspecified; E03.9 Hypothyroidism, unspecified; Z87.442 Personal history of urinary calculi; Z90.49 Acquired absence of other specified parts of digestive tract; Z79.899 Other long term (current) drug therapy
CPT/HCPCS: 74176; 80048; 80076; 83690; 85025; 93005; 96361; 96374; 96375; 99283; J7030; A4216; J2405

== ENCOUNTER 2018-07-31 10:50 | Emergency (ER) | payer SELFPAY ==
[2018-07-31 10:50] VITALS: BMI 48.4
[2018-07-31 10:51] VITALS: BP 167/92; PULSE 64; RESP 18; TEMP 36.3; O2SAT 97; BMI 49.4
--- NOTE | 2018-07-31 11:31 | ED.DCSUM_ITS ---
History of Present Illness Chief Complaint: Back Informant: Patient Onset: Days Current Severity: Mild Narrative: Patient complains of chronic acute recurrent left-sided sciatica back pain, begins in her left buttock area radiates on her left leg she has had this long- standing for many years she is been evaluated distantly no acute gross normality was identified her prior surgeries indicates she basically was helping her [place], aggravating her back then unloaded her car again aggravating her back condition, with these activities She took [id number] meds it did not help and she came in for evaluation she indicates the pain basically starts in her left sciatic notch area radiates down her leg as it has been constantly chronically she had no trauma no numbness weakness paresthesias no bowel bladder complaints or other issues she was scheduled to see an orthopedic surgeon for her back condition but had to go care for her mother Past Medical History - Allergies and Home Meds Allergies/Adverse Reactions: Allergies codeine Adverse Reaction (Verified 07/31/18 10:53) Itching oxycodone Adverse Reaction (Verified 07/31/18 10:53) Itching Primary Care Physician: Jennie Landaverde NP-C [Primary Care Provider] - Past Medical History: - - See above Smoking Status: Never smoker - Family History Maternal Family History: Reports: Diabetes, - - h/o pancreatitis w pseudocysts. Review of Systems General: Denies: Chills, Fever, Sweats Eyes: Denies: Visual changes - bilaterally, Diplopia ENT: Denies: Rhinorrhea, Sore throat Cardiovascular: Denies: Chest pain, Palpitations Respiratory: Denies: Dyspnea, Cough, Dyspnea on exertion Gastrointestinal: Denies: Abdominal pain, Nausea, Vomiting, Diarrhea, Melena, Hematochezia Genitourinary: Denies: Dysuria, Hematuria, Frequency Musculoskeletal: Reports: - - She has pain radiating as above left side. Denies: Back pain, Extremity Pain Skin: Denies: Rash, Wounds Neurological: Denies: Headache, Weakness, Numbness Physical Exam Vital Signs/Narrative: Vital Signs Temp Pulse Resp BP Pulse Ox 07/31/18 10:51 97.4 F L 64 18 167/92 H 97 General: Well nourished, Well developed, No Acute Distress Head: Normocephalic, Atraumatic Eyes: Perrl, EOMI ENT: Moist mucous membranes, No rhinorrhea Neck: Supple, Nontender Cardiovascular: Regular rate, Regular rhythm, No murmurs Respiratory: No distress, CTA bilaterally, Chest nontender Abdomen: Soft, Nontender, Nondistended, Normal bowel sounds Back: Nontender, Normal Inspection, - - She has a vague pain from the left sciatic notch rating down her left leg she has full mid range of motion of the leg to hip knee dorsi and plantar flexion no #6 paresthesias no signs of cauda equina Extremities: Nontender, No edema Skin: Normal color, No rash Neurological: Alert, Oriented x3, Cranial nerves II-XII grossly intact, Normal Strength, Normal Sensation Psychological: Normal affect, Normal Mood Diagnostic/Tx/Re-eval - Medical Decision Making Patient is assuring me this is her chronic recurrent sciatica type pain related to the activities as above at this time she is medicated with morphine Toradol Zofran, she be discharged on Naprosyn Flexeril, she will follow with her family physician outpatient providers for further management and she will follow-up with orthopedic surgeon for further management options return for change in symptoms Home stable Final impression acute recurrent left-sided back pain with sciatica ED Disposition - Plan for ED Patient: Instructions: BACK PAIN w/ SCIATICA Prescriptions: cycloBENZAPRine HCl [Flexeril] 10 mg PO TID PRN #10 tab PRN Reason: Muscle Spasm Prescription Printed Naproxen [Naprosyn] 500 mg PO BID PRN #20 tab Prescription Printed Referrals: Jennie Landaverde NP-C [Primary Care Provider] -
--- NOTE | 2018-07-31 11:34 | DCINST.ED_ITS ---
ED Disposition - Plan for ED Patient: Instructions: BACK PAIN w/ SCIATICA Prescriptions: cycloBENZAPRine HCl [Flexeril] 10 mg PO TID PRN #10 tab PRN Reason: Muscle Spasm Prescription Printed Naproxen [Naprosyn] 500 mg PO BID PRN #20 tab Prescription Printed Referrals: Jennie Landaverde, [employer]FTSMAN-C [Primary Care Provider] -
[2018-07-31] MEDS: Ondansetron 8 MG Tablet PO (12:05)
[2018-07-31] MEDS: morphine 8 MG/ML Syringe 6 MG SC (12:06)
[2018-07-31] MEDS: Ketorolac 60 MG/2 ML Vial IM (12:06)
== END 2018-07-31 13:00 | disposition home or self-care (01) ==
LOC: ED 12:27
PROVIDERS: Emergency Provider Emergency Medicine; Family Provider Nurse Practitioner Family; PCP Nurse Practitioner Family
DX: M54.42 Lumbago with sciatica, left side (principal)
CPT/HCPCS: 96372; 99283

== ENCOUNTER 2018-08-02 09:31 | Emergency (ER) | payer SELFPAY ==
[2018-08-02 09:32] VITALS: BP 159/88; PULSE 94; RESP 18; TEMP 36.7; O2SAT 98; BMI 47.9
--- NOTE | 2018-08-02 09:58 | ED.VISSUMM ---
- ER Visit Summary Date of Service: 08/02/18 Chief Complaint: Acute on chronic left sciatica pain History of Present Illness: The patient is a 58 F with history of recurrent sciatica. She also has depression, anxiety and hypothyroidism. Recently traveled to and from [place] for a family issue and when she returned on Wednesday started having left sciatic pain. Was treated in the emergency department on the for Naprosyn and Flexeril. Patient is still having pain. Does not believe medications are working. Denies any bowel or bladder incontinence or retention. No prior back surgery. No trauma. No fever. Physical Examination: White female appearing no acute distress. No signs. Neck nontender. Good auscultation. Heart regular rhythm no murmur. Abdomen is obese but soft nontender nondistended normal bowel. 4. Neurovascularly intact. She has normal motor strength of upper and lower extremities. No cauda equina. No saddle anesthesia. Bilateral feet. Negative straight leg raise bilaterally. Back exam the spine is nontender she is tenderness of her left SI joint. There is no redness or warmth. No ecchymosis or bruising or any signs of trauma. Neurologically she is awake and alert with no focal motor deficits. He is currently 0. Test Results: None Emergency Department Course and Treatment: The patient and anti-inflammatories and ice of the treatment of choice. I will write her for a total of 10 Vicodin for pain. Otherwise follow-up with her primary care provider. Treatment Plan: Vicodin 10 no refill. Continue her Naprosyn. Ice to the area. Disposition: Discharge Impression: Acute on chronic left sciatica This note was generated with [employer] dictation software. It may contain incorrect words, spelling, and punctuation that were not noted in review of the chart prior to signing ED Disposition - Plan for ED Patient: Referrals: Jennie Landaverde, PAOLA-C [Primary Care Provider] -
--- NOTE | 2018-08-02 10:02 | DCINST.ED_ITS ---
ED Disposition - Plan for ED Patient: Disposition: Home or Assisted Living Instructions: BACK PAIN w/ SCIATICA Prescriptions: Hydrocodone/Acetaminophen [[place] 7.5-325 Tablet] 1 ea PO Q6H PRN PRN #10 tab PRN Reason: Pain Prescription Printed Referrals: Jennie Landaverde, TECHNICAL SERVICE REP-C [Primary Care Provider] - 1 Week if not improving Additional Instructions: I still left sciatica. Continue the Naprosyn. Vicodin for more severe pain. The anti-inflammatory should work take some time. Follow-up with your primary care provider if not improving.
[2018-08-02 10:16] VITALS: PULSE 66; RESP 17; O2SAT 98
== END 2018-08-02 10:19 | disposition home or self-care (01) ==
PROVIDERS: Emergency Provider Emergency Medicine; Family Provider Nurse Practitioner Family; PCP Nurse Practitioner Family
DX: M54.42 Lumbago with sciatica, left side (principal); F32.9 Major depressive disorder, single episode, unspecified; F41.9 Anxiety disorder, unspecified; E03.9 Hypothyroidism, unspecified; Z79.899 Other long term (current) drug therapy
CPT/HCPCS: 99282

== ENCOUNTER 2018-08-17 04:10 | Emergency (ER) | payer MEDICAID, SELFPAY ==
[2018-08-17 04:11] VITALS: BP 163/94; PULSE 73; RESP 14; TEMP 36.4; O2SAT 99; BMI 49.3
--- NOTE | 2018-08-17 04:32 | ED.DCSUM_ITS ---
- ER Visit Summary Date of Service: 08/17/18 Chief Complaint: Left hip pain History of Present Illness: The patient is a 58 F who presents with left hip and leg pain. She has a long-standing history of sciatica and arthritis. She states her pain is been worse since yesterday. She recently saw a chiropractor. She is been taking Tylenol and ibuprofen and trying lidocaine patches and IcyHot at home with little relief. She complains of some numbness and tingling in her toes. She denies fevers, abdominal pain, urinary retention, fecal incontinence, history of back surgeries. Her pain radiates from her lower back down her left leg. Physical Examination: Afebrile vitals unremarkable No distress resting comfortably in the bed Heart regular Respiratory distress Abdomen soft No reproducible back tenderness Negative straight leg raise bilaterally 5 out of 5 with dorsiflexion, plantarflexion, extensor hallucis longus Test Results: Not indicated Emergency Department Course and Treatment: Patient's history and examination are consistent with lumbar radiculopathy. She has a long-standing history of similar symptoms. She does not have signs or symptoms suggestive of serious acute pathology such as cauda equina syndrome or epidural abscess. I do not see any indication for imaging at this time. She was given intramuscular Toradol and will be treated with a prednisone burst. She was advised to follow-up as an outpatient. She understands to return for new or worsening symptoms. Treatment Plan: [] Disposition: Discharge Impression: Lumbar radiculopathy This note was generated with [employer] dictation software. It may contain incorrect words, spelling, and punctuation that were not noted in review of the chart prior to signing ED Disposition - Plan for ED Patient: Referrals: Jennie Landaverde, SOCIAL PSYCHOLOGIST-C [Primary Care Provider] -
--- NOTE | 2018-08-17 04:35 | ED.DEP ---
ED Disposition - Plan for ED Patient: Instructions: BACK PAIN w/ SCIATICA Prescriptions: predniSONE tablet 60 mg PO DAILY #15 tab Prescription Printed Referrals: Jennie Landaverde, [employer] MECH[employer]IC-C [Primary Care Provider] -
[2018-08-17] MEDS: Ketorolac 60 MG/2 ML Vial IM (04:39)
[2018-08-17 04:42] VITALS: PULSE 83; RESP 14
== END 2018-08-17 04:57 | disposition home or self-care (01) ==
LOC: ED 04:37
PROVIDERS: Emergency Provider Emergency Medicine; Family Provider Nurse Practitioner Family; PCP Nurse Practitioner Family
DX: M54.16 Radiculopathy, lumbar region (principal); M19.90 Unspecified osteoarthritis, unspecified site; E03.9 Hypothyroidism, unspecified; F32.9 Major depressive disorder, single episode, unspecified; F41.9 Anxiety disorder, unspecified; Z79.899 Other long term (current) drug therapy
CPT/HCPCS: 96372; 99282

== ENCOUNTER → 2018-09-06 | Outpatient (CLI) | payer MEDICAID, SELFPAY ==
[2018-08-17 04:11] VITALS: BMI 49.3
[2018-09-06 11:38] LABS: Absolute Lymphocyte Count 3.06 X10^3/uL (0.83-4.51); Basophil# 0.05 X10^3/uL; Basophil% 0.9 % (0-1); Eosinophil# 0.22 X10^3/uL; Eosinophils% 3.8 % (0-5); Hematocrit 44.8 % (37-47); Hemoglobin 14.7 g/dL (12.0-15.0); Lymphocyte # 3.06 X10^3/ul (4.0); Lymphocyte % 52.3 % (19-41); Mean Corp Hgb Conc 32.8 g/dL (32-36); Mean Corpuscular Hgb 30.4 pg (27.0-32.0); Mean Corpuscular Volume 92.6 fL (81-99); Mean Platelet Vol. 9.8 fl (6.2-12.0); Monocyte# 0.51 X10^3/uL; Monocyte% 8.7 % (0-10); NRBC Flagged by Analyzer 0 % (0-5); Neutrophil # 1.99 X10^3/uL (2.7-7.7); Platelet Count 268 K/mm3 (150-450); RBC Distribution Width CV 13.1 % (11.6-14.6); RBC Distribution Width SD 43.9 fl (35.1-43.9); Red Blood Count 4.84 M/mm3 (4.2-5.4); White Blood Count 5.9 K/mm3 (4.4-11.0)
[2018-09-06 12:36] LABS: Vitamin D,25 Hydroxy 33.4 ng/mL (29.95-100.01)
[2018-09-06 13:01] LABS: ALB/GLOB Ratio 0.8 RATIO (0.9-2.4); AST(SGOT) 14 U/L (15-37); Alanine Aminotransfer ALT/SGPT 27 U/L (13-56); Albumin, Serum 3.5 g/dL (3.2-5.0); Alkaline Phosphatase 82 U/L (45-117); Anion Gap 8 (5-15); BUN 21 mg/dL (7-18); BUN/Creat Ratio 19.3 RATIO (10-20); Calcium,Total 9.1 mg/dL (8.5-10.1); Chloride 107 mmol/L (98-107); Cholesterol 245 mg/dL (200); Creatinine, Serum 1.09 mg/dL (0.55-1.02); EST Glomerular Filtration Rate 55 mL/min (>60); Est Glom Filt Rate - Afr Amer 66 mL/min (>60); Globulin 4.3 g/dL (2.2-4.2); Glucose 120 mg/dL (74-106); High Density Lipoprotein 43 mg/dL; Potassium 4.5 mmol/L (3.5-5.1); Protein, Total 7.8 g/dL (6.4-8.2); Sodium Level 139 mmol/L (136-145); T4 Free Direct 1.15 ng/dL (0.76-1.46); Thyroid Stim Hormone (TSH) 3.21 uIU/mL (0.358-3.74); Triglycerides 219 mg/dL; Very Low Density Lipoprotein 44 mg/dL (5-40)
== END | disposition home or self-care (01) ==
LOC: LAB 11:15
DX: E03.9 Hypothyroidism, unspecified (principal); E78.5 Hyperlipidemia, unspecified; E55.9 Vitamin D deficiency, unspecified
CPT/HCPCS: 36415; 80053; 80061; 82306; 84439; 84443; 85025

== ENCOUNTER → 2019-01-12 07:28 | Outpatient (CLI) | payer MEDICAID, SELFPAY ==
[2019-01-12 08:11] LABS: Absolute Lymphocyte Count 2.89 X10^3/uL (0.83-4.51); Absolute Neutrophil Count 2.3 X10^3/uL (2.0-7.7); Basophil# 0.04 X10^3/uL; Basophil% 0.7 % (0-1); Eosinophil# 0.16 X10^3/uL; Eosinophils% 2.8 % (0-5); Hematocrit 43.3 % (37-47); Hemoglobin 14.4 g/dL (12.0-15.0); Lymphocyte # 2.89 X10^3/ul (4.0); Lymphocyte % 49.7 % (19-41); Mean Corp Hgb Conc 33.3 g/dL (32-36); Mean Corpuscular Hgb 30.4 pg (27.0-32.0); Mean Corpuscular Volume 91.4 fL (81-99); Monocyte# 0.41 X10^3/uL; Monocyte% 7.1 % (0-10); NRBC Flagged by Analyzer 0 % (0-5); Neutrophil # 2.28 X10^3/uL (2.7-7.7); Neutrophil % 39.2 % (47-70); Platelet Count 234 K/mm3 (150-450); RBC Distribution Width CV 12.7 % (11.6-14.6); RBC Distribution Width SD 42.5 fl (35.1-43.9); Red Blood Count 4.74 M/mm3 (4.2-5.4); White Blood Count 5.8 K/mm3 (4.4-11.0)
[2019-01-12 08:27] LABS: Hemoglobin A1c 5.6 % (4.2-6.3)
[2019-01-12 08:49] LABS: ALB/GLOB Ratio 0.8 RATIO (0.9-2.4); AST(SGOT) 14 U/L (15-37); Alanine Aminotransfer ALT/SGPT 22 U/L (13-56); Albumin, Serum 3.3 g/dL (3.2-5.0); Alkaline Phosphatase 80 U/L (45-117); Anion Gap 3 (5-15); BUN 26 mg/dL (7-18); BUN/Creat Ratio 27.2 RATIO (10-20); Calcium,Total 8.7 mg/dL (8.5-10.1); Chloride 104 mmol/L (98-107); Cholesterol 225 mg/dL (200); Creatinine, Serum 0.96 mg/dL (0.55-1.02); EST Glomerular Filtration Rate 64 mL/min (>60); Est Glom Filt Rate - Afr Amer 77 mL/min (>60); Globulin 4.4 g/dL (2.2-4.2); Glucose 98 mg/dL (74-106); High Density Lipoprotein 43 mg/dL; Potassium 3.8 mmol/L (3.5-5.1); Protein, Total 7.7 g/dL (6.4-8.2); Sodium Level 139 mmol/L (136-145); T4 Free Direct 0.97 ng/dL (0.76-1.46); Thyroid Stim Hormone (TSH) 3.91 uIU/mL (0.358-3.74); Triglycerides 175 mg/dL; Very Low Density Lipoprotein 35 mg/dL (5-40); Vitamin D,25 Hydroxy 30.6 ng/mL (29.95-100.01)
== END ==
DX: E03.9 Hypothyroidism, unspecified (principal); E55.9 Vitamin D deficiency, unspecified
CPT/HCPCS: 36415; 80053; 80061; 82306; 83036; 84439; 84443; 85025

== ENCOUNTER → 2019-08-29 08:27 | Outpatient (CLI) | payer MEDICAID, SELFPAY ==
[2019-08-29 09:21] LABS: Absolute Lymphocyte Count 3.22 X10^3/uL (0.83-4.51); Basophil# 0.03 X10^3/uL; Basophil% 0.5 % (0-1); Eosinophil# 0.19 X10^3/uL; Eosinophils% 3.3 % (0-5); Hemoglobin 15.1 g/dL (12.0-15.0); Lymphocyte # 3.22 X10^3/ul (4.0); Lymphocyte % 55.1 % (19-41); Mean Corp Hgb Conc 32.8 g/dL (32-36); Mean Corpuscular Hgb 30.1 pg (27.0-32.0); Mean Corpuscular Volume 91.8 fL (81-99); Monocyte# 0.39 X10^3/uL; Monocyte% 6.7 % (0-10); NRBC Flagged by Analyzer 0 % (0-5); Neutrophil # 1.98 X10^3/uL (2.7-7.7); Neutrophil % 33.9 % (47-70); Platelet Count 229 K/mm3 (150-450); RBC Distribution Width CV 13.3 % (11.6-14.6); RBC Distribution Width SD 44.3 fl (35.1-43.9); Red Blood Count 5.01 M/mm3 (4.2-5.4); White Blood Count 5.8 K/mm3 (4.4-11.0)
[2019-08-29 09:56] LABS: Hemoglobin A1c 5.7 % (3.8-5.6)
[2019-08-29 09:57] LABS: ALB/GLOB Ratio 0.8 RATIO (0.9-2.4); AST(SGOT) 20 U/L (15-37); Alanine Aminotransfer ALT/SGPT 27 U/L (13-56); Albumin, Serum 3.4 g/dL (3.2-5.0); Alkaline Phosphatase 80 U/L (45-117); Anion Gap 6 (5-15); BUN 21 mg/dL (7-18); BUN/Creat Ratio 19.6 RATIO (10-20); Calcium,Total 8.3 mg/dL (8.5-10.1); Chloride 104 mmol/L (98-107); Cholesterol 257 mg/dL (200); Creatinine, Serum 1.07 mg/dL (0.55-1.02); EST Glomerular Filtration Rate 56 mL/min (>60); Est Glom Filt Rate - Afr Amer 67 mL/min (>60); Glucose 114 mg/dL (74-106); High Density Lipoprotein 38 mg/dL; Potassium 4.3 mmol/L (3.5-5.1); Protein, Total 7.4 g/dL (6.4-8.2); Sodium Level 137 mmol/L (136-145); T4 Free Direct 1.02 ng/dL (0.76-1.46); Thyroid Stim Hormone (TSH) 4.59 uIU/mL (0.358-3.74); Triglycerides 212 mg/dL; Very Low Density Lipoprotein 42 mg/dL (5-40)
[2019-08-30 13:39] LABS: Vitamin D,25 Hydroxy 26.8 ng/mL
== END ==
PROVIDERS: Nurse Practitioner Family
DX: E55.9 Vitamin D deficiency, unspecified (principal); E78.5 Hyperlipidemia, unspecified; E03.9 Hypothyroidism, unspecified
CPT/HCPCS: 36415; 80053; 80061; 82306; 83036; 84439; 84443; 85025

== ENCOUNTER → 2019-11-02 10:45 | Outpatient (CLI) | payer MEDICAID, SELFPAY ==
[2019-11-02 12:05] LABS: ALB/GLOB Ratio 0.7 RATIO (0.9-2.4); AST(SGOT) 16 U/L (15-37); Alanine Aminotransfer ALT/SGPT 25 U/L (13-56); Albumin, Serum 3.4 g/dL (3.2-5.0); Alkaline Phosphatase 81 U/L (45-117); Anion Gap 7 (5-15); BUN 22 mg/dL (7-18); BUN/Creat Ratio 18.5 RATIO (10-20); Chloride 102 mmol/L (98-107); Cholesterol 236 mg/dL (200); Creatinine, Serum 1.19 mg/dL (0.55-1.02); EST Glomerular Filtration Rate 49 mL/min (>60); Est Glom Filt Rate - Afr Amer 60 mL/min (>60); Globulin 4.8 g/dL (2.2-4.2); Glucose 100 mg/dL (74-106); High Density Lipoprotein 35 mg/dL; Potassium 3.8 mmol/L (3.5-5.1); Protein, Total 8.2 g/dL (6.4-8.2); Sodium Level 137 mmol/L (136-145); T4 Free Direct 1.23 ng/dL (0.76-1.46); Thyroid Stim Hormone (TSH) 2.57 uIU/mL (0.358-3.74); Triglycerides 239 mg/dL; Very Low Density Lipoprotein 48 mg/dL (5-40)
== END ==
DX: E03.9 Hypothyroidism, unspecified (principal); E78.5 Hyperlipidemia, unspecified; R73.03 Prediabetes
CPT/HCPCS: 36415; 80053; 80061; 84439; 84443

== ENCOUNTER → 2020-05-06 19:53 | Outpatient (CLI) | payer MEDICAID, SELFPAY | PROVIDERS: PCP Internal Medicine; Visit Provider Internal Medicine | DX: G47.33 Obstructive sleep apnea (adult) (pediatric) (principal) | CPT/HCPCS: 95811 ==

== ENCOUNTER 2020-06-09 15:06 | Emergency (ER) | payer MEDICARE, MEDICAID, SELFPAY ==
[2020-06-09 15:07] VITALS: BP 166/96; PULSE 77; RESP 16; TEMP 37; O2SAT 93; BMI 53.1
[2020-06-09 15:11] VITALS: BP 166/96; PULSE 73; RESP 16; TEMP 37; O2SAT 94
[2020-06-09 15:14] VITALS: BP 166/96; PULSE 73; RESP 16; TEMP 37; O2SAT 94
--- NOTE | 2020-06-09 15:25 | CT_ITS ---
STUDY: CT BRAIN WITHOUT CONTRAST REASON FOR EXAM: Female, 60 years old. Syncope RADIATION DOSAGE (If Supplied By Facility): CTDIvol = ( 44.99 ) mGy, DLP = ( 779.24 ) mGycm TECHNIQUE: Transaxial CT imaging of the brain was performed without administration of intravenous contrast material. Individualized dose optimization techniques were used for this CT. COMPARISON: No relevant priors. FINDINGS: Normal soft tissue structures. There is hyperostosis frontalis internus. Normal size ventricles and extra-axial spaces for the patient''s age. Normal white matter tracts of the cerebral hemispheres. Normal basal ganglia and thalami. Normal brainstem. Normal cerebellum. Partially empty sella turcica. There is no intracranial hemorrhage. There are no findings of an acute ischemic infarction. Normal visualized paranasal sinuses. CT/Brain/Head without Contrast IMPRESSION: No acute intracranial hemorrhage or mass effect. Electronically Signed: Dion Serrano MD ([facility]) at 16:10 EDT , Service support ,
--- NOTE | 2020-06-09 15:26 | CT_ITS ---
STUDY: CT ABDOMEN AND PELVIS WITHOUT CONTRAST REASON FOR EXAM: Female, 60 years old. History of kidney stones, recent UTI symptoms, left flank pain RADIATION DOSAGE (If Supplied By Facility): CTDIvol = ( 34.39 ) mGy, DLP = ( 1916.07 ) mGycm TECHNIQUE: Transaxial images were obtained from the dome of the diaphragm to the symphysis pubis without oral contrast, and without intravenous contrast. Sagittal and coronal images were reconstructed. Individualized dose optimization techniques were used for this CT. COMPARISON: 04/12/2017 FINDINGS: The visualized lung bases are unremarkable. The visualized portions of the heart are within normal limits. Normal liver. There are surgical clips in the gallbladder fossa consistent with a prior cholecystectomy. Normal spleen. Normal pancreas. Normal bilateral adrenal glands. 4 mm calculus of the right kidney on image 92 of series 2. 2 mm punctate calculus of the left UVJ region is seen on image 172 of series 2. No significant hydronephrosis. Normal visualized stomach. Normal small intestine. Normal colon. The appendix is visualized and appears normal. Normal abdominal aorta. Normal inferior vena cava. Normal retroperitoneum. Normal urinary bladder. There is a small umbilical hernia containing fat. Normal osseous structures. CT/Abdomen/Pelvis without Cont IMPRESSION: 2 mm left UVJ calculus without significant hydronephrosis. Electronically Signed: Dion Serrano MD ([facility]) at 16:19 EDT , Service support ,
--- NOTE | 2020-06-09 15:31 | EDS_ITS ---
HPI History of Present Illness Chief Complaint: Flank Pain Informant: patient Onset/Context/Timing Onset: Days (3) Context: Gradual Onset Timing: Continuous Quality: Aching Location: Left flank Worsened by: Nothing Relieved by: Nothing Associated Symptoms Associated Symptoms: Urinary urgency, frequency, and hematuria Narrative Narrative: Patient presents with left flank pain that has been getting worse over the past 3 days. Patient states that she went to an urgent care earlier this week and was diagnosed with a urinary tract infection. Patient states that she was taking the antibiotics. Patient states that she passed out 1 day earlier this week and fell on her left side. Patient hit the left side of her head. Patient denies any chest pain or palpitations with the syncopal episode. Patient remembers standing and then waking up on the ground. Patient states she still has some urgency, frequency, and hematuria. Patient states she has a history of kidney stones and her pain feels similar to prior kidney stones. Prior similar symptoms: Yes PFSH PFS Medical History Bone spur of foot Hypothyroid Kidney stones Home Medications levothyroxine 50 mcg PO DAILY 02/02/16 [History Last Taken 03/16/17 06:00 50 mcg] ondansetron 4 mg PO Q8H PRN PRN #20 tab 02/02/16 [Rx Last Taken 03/01/17 08:00 4 mg] citalopram 20 mg PO QHS 06/03/16 [History Last Taken 03/16/17 22:00 20 mg] loratadine [Allergy Relief (loratadine)] 10 mg PO QHS PRN PRN 06/03/16 [History Last Taken 03/16/17 22:00 10 mg] cyclobenzaprine 10 mg PO TID PRN #10 tab 07/31/18 [Rx Last Taken Unknown] naproxen 500 mg PO BID PRN #20 tab 07/31/18 [Rx Last Taken Unknown] hydrocodone-acetaminophen 1 ea PO Q6H PRN PRN #10 tab 08/02/18 [Rx Last Taken Unknown] cephalexin 500 mg PO BID 06/09/20 [History Last Taken Unknown] ergocalciferol (vitamin D2) [Vitamin D2] 50,000 unit PO QWEEK 06/09/20 [History Last Taken Unknown] gabapentin 300 mg PO QHS 06/09/20 [History Last Taken Unknown] hydrocodone-acetaminophen 1 tab PO Q6H PRN PRN 3 Days #10 tablet 06/09/20 [Rx Last Taken Unknown] hydroxyzine HCl 25 mg PO QHS 06/09/20 [History Last Taken Unknown] meloxicam 7.5 mg PO BID 06/09/20 [History Last Taken Unknown] phenazopyridine [Pyridium] 200 mg PO TID PRN 06/09/20 [History Last Taken Unknown] Allergy/AdvReac Type Severity Reaction Status Date / Time codeine AdvReac Itching Verified 08/17/18 04:11 oxycodone AdvReac Itching Verified 08/17/18 04:11 Surgical History History of lithotripsy Social History Smoking Status: Never smoker ROS ROS ED Constitutional Constitutional ED: Denies chills or fever(s) Eyes Eyes: Denies blurry vision or change in vision ENT ENT ED: Denies rhinorrhea or sore throat Cardiovascular Cardiovascular: Denies chest pain or palpitations Respiratory/Chest Respiratory/Chest: Denies cough or dyspnea Gastrointestinal Gastrointestinal: Reports nausea and vomiting Genitourinary Genitourinary ED: Reports hematuria and urinary frequency Musculoskeletal Musculoskeletal: Reports back pain and neck pain Integumentary Denies abscess or rash Neurologic Neurologic: Reports headache(s); Denies weakness Allergic/Immunologic Allergic/Immunologic ED: Denies mouth swelling or urticaria EXAM Physical Exam Const Vital Signs: 06/09/20 15:07 06/09/20 15:11 06/09/20 15:14 Temperature 98.6 F 98.6 F 98.6 F Temperature Source Temporal Temporal Temporal Pulse Rate 77 73 73 Respiratory Rate 16 16 16 Blood Pressure 166/96 H 166/96 H 166/96 H Blood Pressure Mean 119 119 119 Pulse Ox 93 94 94 Oxygen Delivery Method Room Air Room Air Room Air 06/09/20 17:19 Temperature Temperature Source Pulse Rate 63 Respiratory Rate 16 Blood Pressure 127/68 H Blood Pressure Mean 87 Pulse Ox 96 Oxygen Delivery Method Room Air Positive well nourished, well developed and obese General Appearance ED: well developed Nutritional Appearance: obese HEENT Reports moist mucous membranes HEENT Narrative: There is mild tenderness and a small superficial abrasion of the left frontal/temporal area. There is no bony crepitance or step-off. There is no edema or ecchymosis noted. tenderness Eyes PERRL and EOMs intact bilaterally Neck supple and no JVD Resp normal respiratory effort and clear to auscultation bilaterally Cardio regular rate and regular rhythm GI normal to inspection, nondistended, normoactive bowel sounds and non-tender Palpation: soft Back/Spine General Back: CVA tenderness left Neuro oriented x3, CN's II-XII intact bilaterally and no sensory deficits noted Sensorium / Orientation: alert Motor Exam: strength 5/5 throughout MDM MDM MDM Narrative Medical decision making narrative: CBC and basic metabolic profile were obtained and were essentially within normal limits. Urinalysis shows hematuria with 50- 100 red blood cells and occult blood of 150. CT scan of the abdomen and pelvis was obtained. There is a 2 mm calculus at the left UVJ with no significant hydronephrosis or hydroureter. Patient was advised of her findings. Patient was given a prescription for [place]. Patient was instructed to follow-up with her primary care physician in 5 to 7 days. Patient understood and was agreeable with the plan. All questions were answered. Lab Data Attestation: I reviewed the patient's lab results. Labs: Laboratory Results - last 24 hr 06/09/20 06/09/20 06/09/20 15:35 15:35 16:20 WBC 6.0 RBC 4.70 Hgb 14.2 Hct 43.7 MCV 93.0 MCH 30.2 MCHC 32.5 RDW Std Deviation 43.6 RDW Coeff of Geno 12.7 Plt Count 199 MPV 10.3 Immature Gran % (Auto) 0.300 Neut % (Auto) 57.0 Lymph % (Auto) 30.1 Bath % (Auto) 9.5 Eos % (Auto) 2.3 Baso % (Auto) 0.8 Absolute Neuts (auto) 3.4 Absolute Lymphs (auto) 1.81 Nucleated RBC % 0 Sodium 136 Potassium 4.7 Chloride 106 Carbon Dioxide 25.0 Anion Gap 5 BUN 30 H Creatinine 1.22 H Estim Creat Clear Calc 47.69 Est GFR (MDRD) Af Amer 58 L Est GFR (MDRD) Non-Af 48 L BUN/Creatinine Ratio 24.6 H Glucose 112 H Calcium 9.0 Urine Color SEE COMMENT BELOW Urine Clarity Sl. Cloudy Urine pH 5.0 Ur Specific [place] 1.020 Urine Protein 30 H Urine Glucose (UA) Normal Urine Ketones Negative Urine Occult Blood 150 H Urine Nitrite Positive H Urine Bilirubin 6 H Urine Urobilinogen 8 H Ur Leukocyte Esterase Negative Urine RBC 50-100 SEEN Urine WBC 0-5 SEEN Ur Squamous Epith Cells 0-5 SEEN Urine Bacteria RARE Urine Mucus 0 SEEN Radiography Diagnostic Testing: Radiology Impression Brain CT 06/09/20 15:25 IMPRESSION: No acute intracranial hemorrhage or mass effect. Electronically Signed: Dion Serrano MD ([facility]) at 16:10 EDT , Service support , Abdomen/Pelvis CT 06/09/20 15:26 IMPRESSION: 2 mm left UVJ calculus without significant hydronephrosis. Electronically Signed: Dion Serrano MD ([facility]) at 16:19 EDT , Service support , Discharge Plan Triage Chief Complaint: Flank Pain ED Provider: Perez Boggs Dx/Rx/DC Orders Clinical Impression: Calculus of distal left ureter Instructions: ED Kidney Stone w/ Colic Prescriptions: New hydrocodone-acetaminophen [hydrocodone-acetaminophen] 1 TABLET tablet 1 tab PO Q6H PRN PRN (Reason: Pain) 3 Days Qty: 10 RF: 0 No Action levothyroxine 50 MCG tablet 50 mcg PO DAILY RF: 0 ondansetron 4 MG tablet 4 mg PO Q8H PRN PRN (Reason: Nausea) Qty: 20 RF: 0 loratadine [Allergy Relief (loratadine)] 10 MG tablet,disintegrating 10 mg PO QHS PRN PRN (Reason: Allergies) RF: 0 citalopram 20 MG tablet 20 mg PO QHS RF: 0 naproxen 500 MG tablet 500 mg PO BID PRN Qty: 20 RF: 0 cyclobenzaprine 10 MG tablet 10 mg PO TID PRN (Reason: Muscle Spasm) Qty: 10 RF: 0 hydrocodone-acetaminophen 1 EACH tablet 1 ea PO Q6H PRN PRN (Reason: Pain) Qty: 10 RF: 0 phenazopyridine [Pyridium] 200 mg Tablet 200 mg PO TID PRN (Reason: Urinary Retention) RF: 0 meloxicam 7.5 mg Tablet 7.5 mg PO BID RF: 0 cephalexin 500 mg Capsule 500 mg PO BID RF: 0 hydroxyzine HCl 25 mg Tablet 25 mg PO QHS RF: 0 Vitamin D2 25,000 unit Capsule 50,000 unit PO QWEEK RF: 0 gabapentin 300 mg Tablet 300 mg PO QHS RF: 0 Primary Care Provider: Deedee Reyes Referrals: Deedee Reyes MD [Primary Care Provider] - 3-5 Days Disposition Disposition: Home, self care
[2020-06-09 15:40] LABS: Absolute Lymphocyte Count 1.81 X10^3/uL (0.83-4.51); Absolute Neutrophil Count 3.4 X10^3/uL (2.0-7.7); Basophil# 0.05 X10^3/uL; Basophil% 0.8 % (0-1); Eosinophil# 0.14 X10^3/uL; Eosinophils% 2.3 % (0-5); Hematocrit 43.7 % (37-47); Hemoglobin 14.2 g/dL (12.0-15.0); Lymphocyte # 1.81 X10^3/ul (0.83-4.51); Lymphocyte % 30.1 % (19-41); Mean Corp Hgb Conc 32.5 g/dL (32-36); Mean Corpuscular Hgb 30.2 pg (27.0-32.0); Mean Platelet Vol. 10.3 fl (6.2-12.0); Monocyte# 0.57 X10^3/uL; Monocyte% 9.5 % (0-10); NRBC Flagged by Analyzer 0 % (0-5); Neutrophil # 3.43 X10^3/uL (2.7-7.7); Platelet Count 199 K/mm3 (150-450); RBC Distribution Width CV 12.7 % (11.6-14.6); RBC Distribution Width SD 43.6 fl (35.1-43.9)
[2020-06-09] MEDS: Ketorolac 30 MG/ML Syringe IV (15:40)
[2020-06-09] MEDS: 0.9% Normal Saline 1,000 ML 1000 ML IV (15:40)
[2020-06-09 16:00] LABS: Anion Gap 5 (5-15); BUN 30 mg/dL (7-18); BUN/Creat Ratio 24.6 RATIO (10-20); Chloride 106 mmol/L (98-107); Creatinine, Serum 1.22 mg/dL (0.55-1.02); EST Glomerular Filtration Rate 48 mL/min (>60); Est Glom Filt Rate - Afr Amer 58 mL/min (>60); Estimated Creatinine Clearance 47.69 ml/min; Glucose 112 mg/dL (74-106); Potassium 4.7 mmol/L (3.5-5.1); Sodium Level 136 mmol/L (136-145)
--- NOTE | 2020-06-09 16:06 | ED.RN ---
PT REPORTS SYNCOPAL EPISODE THREE DAYS AGO AFTER TAKING HER ANTIBIOTICS ON AN EMPTY STOMACH. PT PRESENTS WITH ECCHYMOSIS TO LEFT TEMPORAL REGION, AND C/O LEFT SHOULDER AND NECK ACHINESS.
[2020-06-09 16:32] LABS: Mucous, Urine 0 SEEN /hpf (<or=2+)
[2020-06-09 16:35] LABS: Color, Urine SEE COMMENT BELOW (Yellow); Glucose, Dipstick Normal (Normal); Ketone-Dipstick Negative (Negative); Leukocyte Esterase-Dipstick Negative /ul (Negative); Nitrite-Dipstick Positive (Negative); Occult Blood-Urine 150 /ul (Negative); Protein-Dipstick 30 mg/dl (Negative); Urine Bilirubin Dipstick 6 mg/dL (Negative); Urine Clarity Sl. Cloudy (Clear); Urine Urobilinogen 8 mg/dl (Normal)
[2020-06-09 16:40] LABS: Squamous Epithelial Cells - UA 0-5 SEEN /hpf (5-10)
[2020-06-09 16:41] LABS: Bacteria RARE /hpf (None Seen); Red Blood Cells-Urine 50-100 SEEN /hpf (0-5); White Blood Cells 0-5 SEEN /hpf (0-5)
[2020-06-09 17:19] VITALS: BP 127/68; PULSE 63; RESP 16; O2SAT 96
[2020-06-09] MEDS: 0.9% Normal Saline 1,000 ML 250 ML IV (17:19)
== END 2020-06-09 18:19 | disposition home or self-care (01) ==
PROVIDERS: Emergency Provider Emergency Medicine; PCP Internal Medicine
DX: N20.2 Calculus of kidney with calculus of ureter (principal); S00.81XA Abrasion of other part of head, initial encounter; W19.XXXA Unspecified fall, initial encounter; Y93.9 Activity, unspecified; Y92.9 Unspecified place or not applicable; E03.9 Hypothyroidism, unspecified; Z87.442 Personal history of urinary calculi; Z87.440 Personal history of urinary (tract) infections; Z79.899 Other long term (current) drug therapy
CPT/HCPCS: 70450; 74176; 80048; 81001; 85025; 96361; 96374; 99283; J7030; A4216

== ENCOUNTER 2020-08-17 14:18 | Emergency (ER) | payer MEDICARE, MEDICAID, SELFPAY ==
[2020-08-17 14:19] VITALS: BP 162/96; PULSE 102; RESP 22; TEMP 36.2; O2SAT 93; BMI 52.9
--- NOTE | 2020-08-17 14:30 | EDS_ITS ---
HPI History of Present Illness Chief Complaint: Lower Extremity Injury Detail of Chief Complaint: Pain to left hip and leg started 5 days ago Informant: patient Onset/Context/Timing Current Severity: Severe Narrative Narrative: Patient presents to the emergency department with pain in her left hip and leg that started 5 days ago while she twisted awkwardly. She describes pain that kind of starts in her left buttock and goes down the back of her leg to about the knee. Patient states she has had sciatica before and she is unsure if this could be sciatica. Tylenol is not helping her pain. She is having hard time sleeping. She denies numbness or tingling in the extremity. She denies weakness in extremities. She denies bowel or bladder change. [facility] Medical History Bone spur of foot Hypothyroid Kidney stones Home Medications levothyroxine 50 mcg PO DAILY 02/02/16 [History Last Taken 03/16/17 06:00 50 mcg] ondansetron 4 mg PO Q8H PRN PRN #20 tab 02/02/16 [Rx Last Taken 03/01/17 08:00 4 mg] citalopram 20 mg PO QHS 06/03/16 [History Last Taken 03/16/17 22:00 20 mg] loratadine [Allergy Relief (loratadine)] 10 mg PO QHS PRN PRN 06/03/16 [History Last Taken 03/16/17 22:00 10 mg] cyclobenzaprine 10 mg PO TID PRN #10 tab 07/31/18 [Rx Last Taken Unknown] naproxen 500 mg PO BID PRN #20 tab 07/31/18 [Rx Last Taken Unknown] hydrocodone-acetaminophen 1 ea PO Q6H PRN PRN #10 tab 08/02/18 [Rx Last Taken Unknown] cephalexin 500 mg PO BID 06/09/20 [History Last Taken Unknown] ergocalciferol (vitamin D2) [Vitamin D2] 50,000 unit PO QWEEK 06/09/20 [History Last Taken Unknown] gabapentin 300 mg PO QHS 06/09/20 [History Last Taken Unknown] hydrocodone-acetaminophen 1 tab PO Q6H PRN PRN 3 Days #10 tablet 06/09/20 [Rx Last Taken Unknown] hydroxyzine HCl 25 mg PO QHS 06/09/20 [History Last Taken Unknown] meloxicam 7.5 mg PO BID 06/09/20 [History Last Taken Unknown] phenazopyridine [Pyridium] 200 mg PO TID PRN 06/09/20 [History Last Taken Unknown] cyclobenzaprine 10 mg PO TID PRN #20 tablet 08/17/20 [Rx Last Taken Unknown] oxycodone-acetaminophen 1 tab PO Q6H PRN PRN 3 Days #12 tablet 08/17/20 [Rx Last Taken Unknown] Allergy/AdvReac Type Severity Reaction Status Date / Time codeine AdvReac Itching Verified 08/17/18 04:11 oxycodone AdvReac Itching Verified 08/17/18 04:11 Surgical History History of lithotripsy Social History Smoking Status: Never smoker ROS ROS ED Constitutional Constitutional ED: Reports systems reviewed and no addt'l complaints, except as documented; Denies body ache(s), change in weight or chills Eyes Eyes: Denies acute decrease in peripheral vision, change in vision, double vision or loss of vision ENT ENT ED: Reports none; Denies ear pain, lip swelling, loss taste/smell, neck pain, otalgia or sore throat Cardiovascular Cardiovascular: Reports none; Denies abdominal pain, chest pain with activity, leg edema, lightheadedness, palpitations, rapid heart rate or syncope Respiratory/Chest Respiratory/Chest: Reports none; Denies change in mental status, dry cough, dyspnea, hemoptysis, shortness of breath at rest or shortness of breath with exertion Gastrointestinal Gastrointestinal: Reports none; Denies abdominal pain, change in stool character, diarrhea, hematemesis, hematochezia, melena, rectal bleeding or vomiting Genitourinary Genitourinary ED: Reports none; Denies abdominal discomfort, anuria, dysuria, genital pain or polyuria Musculoskeletal Musculoskeletal: Reports none and other Details: Left leg pain ; Denies arthralgias, back pain, difficulty walking, extremity pain, muscle weakness or myalgias Integumentary Reports none; Denies abscess or rash Neurologic Neurologic: Reports none; Denies abnormal gait, confusion, focal weakness, frequent falls, headache(s), loss of vision, numbness, paresthesias, radicular pain, vertigo or weakness Psychiatric Psychiatric: Reports systems reviewed and no addt'l complaints, except as documented and none; Denies behavioral changes, confusion, difficulty concentrating, hallucinations, suicidal ideation, tactile hallucinations or visual hallucinations Endocrine Endocrinology: Denies none, cold intolerance, excessive sweating, fatigue or heat intolerance Hematologic/Lymphatic Hematologic/Lymphatic: Reports none; Denies anemia, easy bleeding or easy bruising Allergic/Immunologic Allergic/Immunologic ED: Denies as per HPI, none, lip swelling, mouth swelling, throat swelling, tongue swelling or hives EXAM Physical Exam Const Vital Signs: 08/17/20 14:19 Temperature 97.2 F L Temperature Source Temporal Pulse Rate 102 H Respiratory Rate 22 H Blood Pressure 162/96 H Blood Pressure Mean 118 Pulse Ox 93 Oxygen Delivery Method Room Air Positive well nourished and well developed General Appearance ED: well developed and NAD HEENT Reports TM's clear and moist mucous membranes normocephalic and atraumatic; Negative for trauma or tenderness Tympanic Membrane ED: Yes TM's clear Eyes PERRL and EOMs intact bilaterally General Eye ED: Negative for pale conjunctiva or scleral icterus Neck no lymphadenopathy, supple and no JVD General: Negative for tenderness Chest Wall inspection of chest normal and palpation of chest normal Chest: Negative for tenderness Resp normal respiratory effort and clear to auscultation bilaterally Effort and Inspection: Negative for respiratory distress or pain with movement Auscultation: Negative for rhonchi, wheezes or diminished lung sounds Cardio regular rate, regular rhythm, S1 normal heart sound, S2 normal heart sound and no murmurs Peripheral Pulses: pulses 2+ throughout GI normal to inspection, nondistended, normoactive bowel sounds, soft to palpation, non-tender, non-distended and no masses Back/Spine no CVA tenderness and no thoracic nor lumbar tenderness Extremity normal to inspection Extremity Narrative: Patient has tenderness palpation over left piriformis muscle. Mild discomfort noted over the left hip joint itself. She has negative straight leg raises. Deep tendon reflexes are plus 2 out of 4 bilaterally at the patella and Achilles. Patient has normal L5 extension. Patient has normal sensation to light touch. General Extremety ED: Negative for edema General Extremity: Negative for edema Neuro oriented x3, CN's II-XII intact bilaterally, no sensory deficits noted and gait normal Sensorium / Orientation: awake, alert, oriented to person, oriented to place and oriented to time Motor Exam: strength 5/5 throughout and strength abnormal Psych mental status grossly normal Skin no rashes or lesions noted and no wounds MDM MDM MDM Narrative Medical decision making narrative: Patient received a shot of Toradol 30 mg IM but really did not receive much pain relief with that. She will be given a prescription for Percocet and Flexeril. She is advised to follow-up with her primary care physician in 3 to 5 days. I suspect patient has a hip strain. In the differential would be sciatica as well. There are no signs or symptoms of cauda equina. Radiography Diagnostic Testing: Radiology Impression Hip/Pelvis X-Ray 08/17/20 14:50 IMPRESSION: No evidence of displaced pelvic or hip fracture. at 1525 Reported and signed by: Luis E Calderon MD Electronically Signed: Luis E Calderon MD at 15:24 EDT Tel , Service support , Three-view x-rays of left hip and pelvis obtained interpreted by myself as no acute fractures or dislocations. Radiology was in agreement. Discharge Plan Triage Chief Complaint: Lower Extremity Injury ED Provider: Mayela Apodaca Dx/Rx/DC Orders Clinical Impression: Muscle strain of left hip Instructions: ED Hip Strain Prescriptions: New cyclobenzaprine [cyclobenzaprine] 10 MG tablet 10 mg PO TID PRN (Reason: Muscle Spasm) Qty: 20 RF: 0 oxycodone-acetaminophen [oxycodone-acetaminophen] 1 TABLET tablet 1 tab PO Q6H PRN PRN (Reason: Pain) 3 Days Qty: 12 RF: 0 No Action levothyroxine 50 MCG tablet 50 mcg PO DAILY RF: 0 ondansetron 4 MG tablet 4 mg PO Q8H PRN PRN (Reason: Nausea) Qty: 20 RF: 0 loratadine [Allergy Relief (loratadine)] 10 MG tablet,disintegrating 10 mg PO QHS PRN PRN (Reason: Allergies) RF: 0 citalopram 20 MG tablet 20 mg PO QHS RF: 0 naproxen 500 MG tablet 500 mg PO BID PRN Qty: 20 RF: 0 cyclobenzaprine 10 MG tablet 10 mg PO TID PRN (Reason: Muscle Spasm) Qty: 10 RF: 0 hydrocodone-acetaminophen 1 EACH tablet 1 ea PO Q6H PRN PRN (Reason: Pain) Qty: 10 RF: 0 phenazopyridine [Pyridium] 200 mg Tablet 200 mg PO TID PRN (Reason: Urinary Retention) RF: 0 meloxicam 7.5 mg Tablet 7.5 mg PO BID RF: 0 cephalexin 500 mg Capsule 500 mg PO BID RF: 0 hydroxyzine HCl 25 mg Tablet 25 mg PO QHS RF: 0 Vitamin D2 25,000 unit Capsule 50,000 unit PO QWEEK RF: 0 gabapentin 300 mg Tablet 300 mg PO QHS RF: 0 hydrocodone-acetaminophen [hydrocodone-acetaminophen] 1 TABLET tablet 1 tab PO Q6H PRN PRN (Reason: Pain) 3 Days Qty: 10 RF: 0 Primary Care Provider: Deedee Reyes Referrals: Deedee Reyes MD [Primary Care Provider] - 3-5 Days Disposition Disposition: Home, Self Care
[2020-08-17] MEDS: Ketorolac 30 MG/ML Syringe IM (14:37)
--- NOTE | 2020-08-17 14:50 | RAD_ITS ---
EXAM: XR LEFT HIP WITH PELVIS WHEN PERFORMED, 2 OR 3 VIEWS : 1960 CLINICAL INDICATION: pain TECHNIQUE: Two or three views of the left hip with pelvis when performed. This report was created using QBE report generation technology. COMPARISON: None. FINDINGS: BONES/JOINTS: Unremarkable. No displaced fracture. No destructive or sclerotic lesions. Note that overlapping bowel shadows may however obscure fine detail. Sacroiliac joint is unremarkable. No widening of the pubic symphisis. The articular structures are unremarkable. SOFT TISSUES: Unremarkable. No soft tissue swelling or gas. RAD/HIP, UNI W/ Pelvis 2-3 Views IMPRESSION: No evidence of displaced pelvic or hip fracture. at 1525 Reported and signed by: Luis E Calderon MD Electronically Signed: Luis E Calderon MD at 15:24 EDT Tel , Service support ,
== END 2020-08-17 15:47 | disposition home or self-care (01) ==
PROVIDERS: Emergency Provider Emergency Medicine; PCP Internal Medicine
DX: S76.012A Strain of muscle, fascia and tendon of left hip, initial encounter (principal); X50.1XXA Overexertion from prolonged static or awkward postures, initial encounter; Y93.9 Activity, unspecified; Y92.9 Unspecified place or not applicable; E03.9 Hypothyroidism, unspecified; Z87.442 Personal history of urinary calculi; Z79.899 Other long term (current) drug therapy
CPT/HCPCS: 73502; 96372; 99282

== ENCOUNTER 2020-08-25 07:06 | Emergency (ER) | payer MEDICARE, MEDICAID, SELFPAY ==
[2020-08-25 07:06] VITALS: BP 139/97; PULSE 106; RESP 19; TEMP 35.5; O2SAT 90; BMI 52.2
--- NOTE | 2020-08-25 07:31 | ED.VIS.BACK ---
HPI History of Present Illness Chief Complaint: Back Informant: patient Onset/Context/Timing Onset: Today Injury: twisting Narrative Narrative: Patient is a 60-year-old female with history of disability, sciatica and neuropathy presenting with low back pain. Patient states in her left lower back and radiates down her entire leg. States going on the front of her leg. She describes as throbbing in nature. She notes she was seen in the ER about a week ago for the same complaint. She was given a short course of Percocet, Flexeril and IM Toradol. She states she had pretty much improved completely and was trying to exert herself more yesterday when she twisted her back again. Her symptoms returned. She notes she had followed up with her PCP this week but since her symptoms had resolved no further action was taken. She states she had an episode of sciatica about 2 years ago that ultimately required 3 ER visits and when she received steroids her symptoms finally dissipated. Patient notes minimal constipated since being on the Percocet but denies any incontinence. She denies any and numbness in her groin region. She notes she does have a little bit of numbness going down her left leg. She denies any hematuria or other urinary symptoms. She denies any chest pain, shortness of breath or difficulty breathing. She denies any swelling of her legs. Movements make her pain worse. No other complaints at this time. Prior similar symptoms: Yes and With Prior Back Pain [facility] Medical History Bone spur of foot Hypothyroid Kidney stones Home Medications levothyroxine 50 mcg PO DAILY 02/02/16 [History Last Taken 03/16/17 06:00 50 mcg] ondansetron 4 mg PO Q8H PRN PRN #20 tab 02/02/16 [Rx Last Taken 03/01/17 08:00 4 mg] citalopram 20 mg PO QHS 06/03/16 [History Last Taken 03/16/17 22:00 20 mg] loratadine [Allergy Relief (loratadine)] 10 mg PO QHS PRN PRN 06/03/16 [History Last Taken 03/16/17 22:00 10 mg] cyclobenzaprine 10 mg PO TID PRN #10 tab 07/31/18 [Rx Last Taken Unknown] naproxen 500 mg PO BID PRN #20 tab 07/31/18 [Rx Last Taken Unknown] hydrocodone-acetaminophen 1 ea PO Q6H PRN PRN #10 tab 08/02/18 [Rx Last Taken Unknown] cephalexin 500 mg PO BID 06/09/20 [History Last Taken Unknown] ergocalciferol (vitamin D2) [Vitamin D2] 50,000 unit PO QWEEK 06/09/20 [History Last Taken Unknown] gabapentin 300 mg PO QHS 06/09/20 [History Last Taken Unknown] hydrocodone-acetaminophen 1 tab PO Q6H PRN PRN 3 Days #10 tablet 06/09/20 [Rx Last Taken Unknown] hydroxyzine HCl 25 mg PO QHS 06/09/20 [History Last Taken Unknown] meloxicam 7.5 mg PO BID 06/09/20 [History Last Taken Unknown] phenazopyridine [Pyridium] 200 mg PO TID PRN 06/09/20 [History Last Taken Unknown] cyclobenzaprine 10 mg PO TID PRN #20 tablet 08/17/20 [Rx Last Taken Unknown] oxycodone-acetaminophen 1 tab PO Q6H PRN PRN 3 Days #12 tablet 08/17/20 [Rx Last Taken Unknown] oxycodone-acetaminophen [Percocet] 1 tab PO Q8H PRN 3 Days #10 tab 08/25/20 [Rx Last Taken Unknown] prednisone 40 mg PO DAILY #8 tab 08/25/20 [Rx Last Taken Unknown] Allergy/AdvReac Type Severity Reaction Status Date / Time codeine AdvReac Itching Verified 08/25/20 07:09 Surgical History History of lithotripsy Social History Smoking Status: Never smoker ROS ROS ED Constitutional Constitutional ED: Denies chills or fever(s) Eyes Eyes: Denies change in vision Cardiovascular Cardiovascular: Denies chest pain or palpitations Respiratory/Chest Respiratory/Chest: Denies dyspnea or dyspnea on exertion Gastrointestinal Gastrointestinal: Reports constipation; Denies abdominal pain, nausea or vomiting Genitourinary Genitourinary ED: Reports other Details: Denies new incontinence ; Denies dysuria or urinary frequency Musculoskeletal Musculoskeletal: Reports back pain; Denies myalgias or neck pain Integumentary Denies rash Neurologic Neurologic: Reports paresthesias LLE; Denies headache(s) or weakness Psychiatric Psychiatric: Denies anxiety or depression EXAM Physical Exam Const Vital Signs: 08/25/20 07:06 Temperature 96 F L Temperature Source Temporal Pulse Rate 106 H Respiratory Rate 19 H Blood Pressure 139/97 H Blood Pressure Mean 111 Pulse Ox 90 Oxygen Delivery Method Room Air Positive well nourished and well developed General Appearance ED: well developed HEENT Reports moist mucous membranes Eyes PERRL and EOMs intact bilaterally Neck supple Neck Narrative: normal ROM Resp normal respiratory effort and clear to auscultation bilaterally Cardio regular rate and regular rhythm Cardio Narrative: 2+ bilateral DP pulses GI normal to inspection, nondistended, normoactive bowel sounds, soft to palpation and non-tender Back/Spine normal to inspection and no thoracic nor lumbar tenderness General Back: Negative for CVA tenderness Lumbar Spine / Lower Back: straight leg raise positive - left Extremity normal to inspection General Extremety ED: Negative for edema or tenderness General Extremity: Negative for edema Neuro oriented x3 and no sensory deficits noted Sensorium / Orientation: alert Motor Exam: strength 5/5 throughout Skin no rashes or lesions noted MDM MDM MDM Narrative Medical decision making narrative: Patient admitted for atraumatic lower back pain. It radiates down her left leg. I suspect she has some type of nerve impingement/sciatica causing her pain. We will put her on a prednisone burst and give her another short course of Percocet. Patient counseled that she should follow-up with her primary care doctor and might ultimately require referral to a spine doctor or physical therapy if her symptoms do not improve. I do not think repeat imaging is indicated at this time. Patient is not have findings concerning for cauda equina syndrome. While she does have pain and subjective paresthesias she has a normal neurologic exam. Treatment and Re-Evaluation Comments:: Prednisone, IM Toradol Discharge Plan Triage Chief Complaint: Back ED Provider: Vonnie Samson Dx/Rx/DC Orders Clinical Impression: Low back pain radiating to left leg Instructions: ED Back Pain (Acute or Chronic) Prescriptions: New prednisone 20 mg tablet 40 mg PO DAILY Qty: 8 RF: 0 oxycodone-acetaminophen [Percocet] 5-325 mg tablet 1 tab PO Q8H PRN (Reason: pain) 3 Days Qty: 10 RF: 0 No Action levothyroxine 50 MCG tablet 50 mcg PO DAILY RF: 0 ondansetron 4 MG tablet 4 mg PO Q8H PRN PRN (Reason: Nausea) Qty: 20 RF: 0 loratadine [Allergy Relief (loratadine)] 10 MG tablet,disintegrating 10 mg PO QHS PRN PRN (Reason: Allergies) RF: 0 citalopram 20 MG tablet 20 mg PO QHS RF: 0 naproxen 500 MG tablet 500 mg PO BID PRN Qty: 20 RF: 0 cyclobenzaprine 10 MG tablet 10 mg PO TID PRN (Reason: Muscle Spasm) Qty: 10 RF: 0 hydrocodone-acetaminophen 1 EACH tablet 1 ea PO Q6H PRN PRN (Reason: Pain) Qty: 10 RF: 0 phenazopyridine [Pyridium] 200 mg Tablet 200 mg PO TID PRN (Reason: Urinary Retention) RF: 0 meloxicam 7.5 mg Tablet 7.5 mg PO BID RF: 0 cephalexin 500 mg Capsule 500 mg PO BID RF: 0 hydroxyzine HCl 25 mg Tablet 25 mg PO QHS RF: 0 Vitamin D2 25,000 unit Capsule 50,000 unit PO QWEEK RF: 0 gabapentin 300 mg Tablet 300 mg PO QHS RF: 0 hydrocodone-acetaminophen [hydrocodone-acetaminophen] 1 TABLET tablet 1 tab PO Q6H PRN PRN (Reason: Pain) 3 Days Qty: 10 RF: 0 cyclobenzaprine [cyclobenzaprine] 10 MG tablet 10 mg PO TID PRN (Reason: Muscle Spasm) Qty: 20 RF: 0 oxycodone-acetaminophen [oxycodone-acetaminophen] 1 TABLET tablet 1 tab PO Q6H PRN PRN (Reason: Pain) 3 Days Qty: 12 RF: 0 Primary Care Provider: Deedee Reyes Referrals: Deedee Reyes MD [Primary Care Provider] - Activity Restrictions/Additional Instructions: Please follow-up with your primary care doctor especially if your pain persist. You might require referral to a brand marketing specialist or physical therapy. Disposition Disposition: Home, Self Care
[2020-08-25] MEDS: Ketorolac 15 MG/ML Vial IM (08:06)
[2020-08-25] MEDS: predniSONE 20 MG Tablet 60 MG PO (08:06)
== END 2020-08-25 08:37 | disposition home or self-care (01) ==
LOC: ED 07:42
PROVIDERS: Emergency Provider Emergency Medicine; PCP Internal Medicine
DX: M54.42 Lumbago with sciatica, left side (principal); G62.9 Polyneuropathy, unspecified; E03.9 Hypothyroidism, unspecified; Z87.442 Personal history of urinary calculi; Z79.899 Other long term (current) drug therapy
CPT/HCPCS: 96372; 99283

== ENCOUNTER 2020-08-27 09:11 | Observation (INO) | payer MEDICARE, MEDICAID, SELFPAY ==
[2020-08-27] VITALS (11 sets, daily range): BP systolic 137–190; BP diastolic 69–100; PULSE 75–88; RESP 16–20; TEMP 36.2–36.8; O2SAT 91–99; BMI 52.1; BMI 51.9
--- NOTE | 2020-08-27 09:33 | EDS_ITS ---
HPI History of Present Illness Chief Complaint: Back Detail of Chief Complaint: Back pain for several weeks Informant: patient Onset/Context/Timing Current Severity: 11/17 Maximum Severity: 11/17 Narrative Narrative: Patient presents to the emergency department with complaint of back pain and sciatica. Patient states that 2 weeks ago she was seen in the emergency department after bending over and injuring her back with radiation to her leg. Patient was seen by myself in the emergency department and treated with muscle relaxers and oxycodone. Patient states a week later her pain had completely resolved and she followed up with her primary care physician and no further action was taken as she had completely resolved her symptoms. Patient states that 4 days ago she threw away some trash and once again felt a pain in her back with radiation to the left leg. Patient was seen in the emergency department again and started on prednisone and given more oxycodone. Patient states that medicines not helping her pain and she is having hard time sleeping at night. Patient also takes gabapentin. Patient complains of some numbness to her foot. She denies weakness in extremity. She denies any change in bowel or bladder function. Patient currently rates her pain a 10 out of 10. Prior similar symptoms: Yes PFSH PFSH Medical History (Updated 08/27/20 @ 10:[address] Mayela Apodaca, DO) Anxiety Bone spur of foot Depression Hypothyroid Kidney stones Sciatic leg pain Vertigo Home Medications levothyroxine 50 mcg PO DAILY 02/02/16 [History Last Taken 03/16/17 06:00 50 mcg] ondansetron 4 mg PO Q8H PRN PRN #20 tab 02/02/16 [Rx Last Taken 03/01/17 08:00 4 mg] citalopram 20 mg PO QHS 06/03/16 [History Last Taken 03/16/17 22:00 20 mg] cyclobenzaprine 10 mg PO TID PRN #10 tab 07/31/18 [Rx Last Taken Unknown] ergocalciferol (vitamin D2) [Vitamin D2] 50,000 unit PO QWEEK 06/09/20 [History Last Taken Unknown] gabapentin 300 mg PO QHS 06/09/20 [History Last Taken Unknown] meloxicam 7.5 mg PO BID 06/09/20 [History Last Taken Unknown] prednisone 40 mg PO DAILY #8 tab 07/18/21 [Rx Last Taken Unknown] Allergy/AdvReac Type Severity Reaction Status Date / Time codeine AdvReac Itching Verified 08/27/20 09:11 Surgical History (Updated 08/27/20 @ 09:28 by Jessica Dumont) History of cholecystectomy History of lithotripsy Social History Smoking Status: Never smoker ROS ROS ED Constitutional Constitutional ED: Reports systems reviewed and no addt'l complaints, except as documented; Denies body ache(s), change in weight or chills Eyes Eyes: Denies acute decrease in peripheral vision, change in vision, double vision or loss of vision ENT ENT ED: Reports none; Denies ear pain, lip swelling, loss taste/smell, neck pain, otalgia or sore throat Cardiovascular Cardiovascular: Reports none; Denies abdominal pain, chest pain with activity, leg edema, lightheadedness, palpitations, rapid heart rate or syncope Respiratory/Chest Respiratory/Chest: Reports none; Denies change in mental status, dry cough, dyspnea, hemoptysis, shortness of breath at rest or shortness of breath with exertion Gastrointestinal Gastrointestinal: Reports none; Denies abdominal pain, change in stool character, diarrhea, hematemesis, hematochezia, melena, rectal bleeding or vomiting Genitourinary Genitourinary ED: Reports none; Denies abdominal discomfort, anuria, dysuria, genital pain or polyuria Musculoskeletal Musculoskeletal: Reports none and back pain; Denies arthralgias, difficulty walking, extremity pain, muscle weakness or myalgias Integumentary Reports none; Denies abscess or rash Neurologic Neurologic: Reports none and paresthesias; Denies abnormal gait, confusion, focal weakness, frequent falls, headache(s), loss of vision, numbness, radicular pain, vertigo or weakness Psychiatric Psychiatric: Reports systems reviewed and no addt'l complaints, except as documented and none; Denies behavioral changes, confusion, difficulty concen trating, hallucinations, suicidal ideation, tactile hallucinations or visual hallucinations Endocrine Endocrinology: Denies none, cold intolerance, excessive sweating, fatigue or heat intolerance Hematologic/Lymphatic Hematologic/Lymphatic: Reports none; Denies anemia, easy bleeding or easy bruising Allergic/Immunologic Allergic/Immunologic ED: Denies as per HPI, none, lip swelling, mouth swelling, throat swelling, tongue swelling or hives EXAM Physical Exam Const Vital Signs: 08/27/20 09:11 08/27/20 10:46 Temperature 97.1 F L Temperature Source Temporal Pulse Rate 84 81 Respiratory Rate 16 20 H Blood Pressure 190/88 H 175/88 H Blood Pressure Mean 122 117 Pulse Ox 99 94 Oxygen Delivery Method Room Air Room Air Positive well nourished and well developed General Appearance ED: well developed and NAD HEENT Reports TM's clear and moist mucous membranes normocephalic and atraumatic; Negative for trauma or tenderness Tympanic Membrane ED: Yes TM's clear Eyes PERRL and EOMs intact bilaterally General Eye ED: Negative for pale conjunctiva or scleral icterus Neck no lymphadenopathy, supple and no JVD General: Negative for tenderness Chest Wall inspection of chest normal and palpation of chest normal Chest: Negative for tenderness Resp normal respiratory effort and clear to auscultation bilaterally Effort and Inspection: Negative for respiratory distress or pain with movement Auscultation: Negative for rhonchi, wheezes or diminished lung sounds Cardio regular rate, regular rhythm, S1 normal heart sound, S2 normal heart sound and no murmurs Peripheral Pulses: pulses 2+ throughout GI normal to inspection, nondistended, normoactive bowel sounds, soft to palpation, non-tender, non-distended and no masses Back/Spine no CVA tenderness and no thoracic nor lumbar tenderness Back/Spine Narrative: Patient with some tenderness diffusely over the lower lumbar spine and into her left buttock over the area of the piriformis. Patient has a straight leg raise with pain at about 30 degrees while supine. Deep tendon reflexes are plus 2 out of 4 bilaterally at the patella and Achilles. Patient has normal L5 extension. She has normal sensation to light touch. Lumbar Spine / Lower Back: straight leg raise positive - left Extremity normal to inspection General Extremety ED: Negative for edema General Extremity: Negative for edema Neuro oriented x3, CN's II-XII intact bilaterally, no sensory deficits noted and gait normal Sensorium / Orientation: awake, alert, oriented to person, oriented to place and oriented to time Motor Exam: strength 5/5 throughout and strength abnormal Psych mental status grossly normal Skin no rashes or lesions noted and no wounds MDM MDM MDM Narrative Medical decision making narrative: Patient received 4 mg of morphine and 4 mg Zofran IV. She states the pain is little more tolerable but still is quite uncomfortable and has a hard time laying in bed. Case will be discussed with hospitalist evaluate patient for admission for intractable back pain and patient may require further imaging such as possibly MRI to evaluate further. Lab Data Attestation: I reviewed the patient's lab results. Labs: Laboratory Results - last 24 hr 08/27/20 08/27/20 08/27/20 09:45 09:45 09:50 WBC 7.7 RBC 4.87 Hgb 14.7 Hct 44.5 MCV 91.4 MCH 30.2 MCHC 33.0 RDW Std Deviation 42.1 RDW Coeff of Geno 12.7 Plt Count 288 MPV 9.6 Immature Gran % (Auto) 0.900 Neut % (Auto) 78.1 H Lymph % (Auto) 17.3 L [place] % (Auto) 3.3 Eos % (Auto) 0.1 Baso % (Auto) 0.3 Absolute Neuts (auto) 6.0 Absolute Lymphs (auto) 1.33 Nucleated RBC % 0 Sodium 134 L Potassium 5.0 Chloride 99 Carbon Dioxide 28.0 Anion Gap 7 BUN 27 H Creatinine 1.17 H Estim Creat Clear Calc 49.72 Est GFR (MDRD) Af Amer 61 Est GFR (MDRD) Non-Af 50 L BUN/Creatinine Ratio 23.1 H Glucose 133 H Calcium 9.3 Urine Color Yellow Urine Clarity Clear Urine pH 7.0 Ur Specific [place] 1.010 Urine Protein Negative Urine Glucose (UA) Normal Urine Ketones Negative Urine Occult Blood 10 H Urine Nitrite Positive H Urine Bilirubin Negative Urine Urobilinogen Normal Ur Leukocyte Esterase 25 H Urine RBC 0 SEEN Urine WBC 0-5 SEEN Ur Squamous Epith Cells 0-5 SEEN Urine Bacteria 1+ Urine Mucus 0 SEEN Discharge Plan Triage Chief Complaint: Back ED Provider: Mayela Apodaca Dx/Rx/DC Orders Clinical Impression: Intractable back pain, Sciatica Prescriptions: No Action levothyroxine 50 MCG tablet 50 mcg PO DAILY RF: 0 ondansetron 4 MG tablet 4 mg PO Q8H PRN PRN (Reason: Nausea) Qty: 20 RF: 0 citalopram 20 MG tablet 20 mg PO QHS RF: 0 cyclobenzaprine 10 MG tablet 10 mg PO TID PRN (Reason: Muscle Spasm) Qty: 10 RF: 0 meloxicam 7.5 mg Tablet 7.5 mg PO BID RF: 0 Vitamin D2 25,000 unit Capsule 50,000 unit PO QWEEK RF: 0 gabapentin 300 mg Tablet 300 mg PO QHS RF: 0 prednisone 20 mg tablet 40 mg PO DAILY Qty: 8 RF: 0 Primary Care Provider: Deedee Reyes Referrals: Deedee Reyes MD [Primary Care Provider] - Disposition Disposition: Acute Care Hospital [facility]
[2020-08-27] MEDS: Morphine 4 MG/ML Syringe IV (09:52)
[2020-08-27] MEDS: Ondansetron 4 MG/2 ML Vial IV (09:53)
[2020-08-27 09:55] LABS: Absolute Lymphocyte Count 1.33 X10^3/uL (0.83-4.51); Basophil# 0.02 X10^3/uL; Basophil% 0.3 % (0-1); Eosinophil# 0.01 X10^3/uL; Eosinophils% 0.1 % (0-5); Hematocrit 44.5 % (37-47); Hemoglobin 14.7 g/dL (12.0-15.0); Lymphocyte # 1.33 X10^3/ul (0.83-4.51); Lymphocyte % 17.3 % (19-41); Mean Corpuscular Hgb 30.2 pg (27.0-32.0); Mean Corpuscular Volume 91.4 fL (81-99); Mean Platelet Vol. 9.6 fl (6.2-12.0); Monocyte# 0.25 X10^3/uL; Monocyte% 3.3 % (0-10); NRBC Flagged by Analyzer 0 % (0-5); Neutrophil % 78.1 % (47-70); Platelet Count 288 K/mm3 (150-450); RBC Distribution Width CV 12.7 % (11.6-14.6); RBC Distribution Width SD 42.1 fl (35.1-43.9); Red Blood Count 4.87 M/mm3 (4.2-5.4); White Blood Count 7.7 K/mm3 (4.4-11.0)
[2020-08-27 09:59] LABS: Mucous, Urine 0 SEEN /hpf (<or=2+); Red Blood Cells-Urine 0 SEEN /hpf (0-5)
[2020-08-27 10:08] LABS: Anion Gap 7 (5-15); BUN 27 mg/dL (7-18); BUN/Creat Ratio 23.1 RATIO (10-20); Calcium,Total 9.3 mg/dL (8.5-10.1); Chloride 99 mmol/L (98-107); Creatinine, Serum 1.17 mg/dL (0.55-1.02); EST Glomerular Filtration Rate 50 mL/min (>60); Est Glom Filt Rate - Afr Amer 61 mL/min (>60); Estimated Creatinine Clearance 49.72 ml/min; Glucose 133 mg/dL (74-106); Sodium Level 134 mmol/L (136-145)
[2020-08-27 10:13] LABS: Color, Urine Yellow (Yellow); Glucose, Dipstick Normal (Normal); Ketone-Dipstick Negative (Negative); Leukocyte Esterase-Dipstick 25 /ul (Negative); Nitrite-Dipstick Positive (Negative); Occult Blood-Urine 10 /ul (Negative); Protein-Dipstick Negative (Negative); Urine Bilirubin Dipstick Negative (Negative); Urine Clarity Clear (Clear); Urine Urobilinogen Normal (Normal)
[2020-08-27 10:27] LABS: Bacteria 1+ /hpf (None Seen); Squamous Epithelial Cells - UA 0-5 SEEN /hpf (5-10); White Blood Cells 0-5 SEEN /hpf (0-5)
--- NOTE | 2020-08-27 11:24 | MRI_ITS ---
HISTORY: sciatica L EXAMINATION: MR Spine Lumbar W/O Contrast TECHNIQUE: Multiplanar and multisequence MR images of the lumbar spine. IV Contrast dosage and agent: None. COMPARISON: None FINDINGS: VERTEBRAE: Normal vertebral body heights, alignment and lordosis. Modic type II signal changes at the L3-4 disc space. No expansile or destructive lesion. CORD: Normal visualized portions of the spinal cord and cauda equina, with the tip of the conus medullaris at the level. No intradural or intramedullary soft tissue mass or epidural fluid collection. SOFT TISSUES: Unremarkable. L1/L2: No disc bulge, central canal stenosis, or neural foraminal stenosis. L2/L3: No disc bulge, central canal stenosis, or neural foraminal stenosis. L3/L4: Circumferential annular bulge in combination with posterior element hypertrophy produces mild central and moderate right foraminal stenosis. L4/L5: No disc bulge, central canal stenosis, or neural foraminal stenosis. L5/S1: No disc bulge, central canal stenosis, or neural foraminal stenosis. MRI/Spine Lumbar (Routine) IMPRESSION: Mild central and moderate right foraminal stenosis at L3-4. at 1552 Reported and signed by: Filemon Michaels MD Electronically Signed: Filemon Michaels MD at 15:51 EDT Tel , Service support ,
[2020-08-27] MEDS: 0.9% Saline Lock 10 ML Syringe IV ×5 (12:08→23:08)
[2020-08-27] MEDS: dexAMETHasone 4 MG/ML Vial IV ×3 (12:08→23:08)
--- NOTE | 2020-08-27 13:07 | PCM.HP.STD ---
Documented by User: Lidya Lopez NP, EQUIPMENT MAINTENANCE SUPERINTENDENT-C 08/27/20 13:34 HPI - General General Date of Admission: 08/27/20 Chief Complaint: Back pain. HPI Narrative SANDIE BURRELL, is a 60 F who presents to the emergency room due to back pain. Patient has had recurrent emergency room and outpatient visits for back pain which she states initially worsened August 14. Patient reports she has received steroids 2 separate times which improved her pain temporarily. She reports chronic low back pain and is on disability due to back pain with associated debility. Her symptoms have recently worsened. She states she is only able to stand for short amount of time. She denies loss of bowel or bladder function. Denies numbness of lower extremities. Denies weakness of lower extremities. Patient has not had previous surgical evaluation or MRI. She has a past medical history of hypothyroidism, depression, chronic vertigo, morbid obesity. [facility] Medical History (Updated 08/27/20 @ 11:53 by Olga Sears) Anxiety Bone spur of foot Chronic pain Depression Hiatal hernia Hypothyroid IBS (irritable bowel syndrome) Kidney stones Migraines Obesity FREEMAN (obstructive sleep apnea) Osteoarthritis Sciatic leg pain Vertigo Vision loss of left eye Vision loss of right eye Home Medications levothyroxine 50 mcg PO DAILY 02/02/16 [History Last Taken 08/27/20 0830] ondansetron 4 mg PO Q8H PRN PRN #20 tab 02/02/16 [Rx Last Taken 03/01/17 08:00 4 mg] citalopram 20 mg PO QHS 06/03/16 [History Last Taken 03/16/17 22:00 20 mg] cyclobenzaprine 10 mg PO TID PRN #10 tab 07/31/18 [Rx Last Taken 08/26/20] ergocalciferol (vitamin D2) [Vitamin D2] 50,000 unit PO QWEEK 06/09/20 [History Last Taken 08/25/20] gabapentin 300 mg PO QHS 06/09/20 [History Last Taken 08/26/20] meloxicam 15 mg PO QHS 06/09/20 [History Last Taken 08/26/20] prednisone 40 mg PO DAILY #8 tab 08/25/20 [Rx Last Taken 08/26/20] hydrocodone-acetaminophen 1 tab PO Q8H PRN PRN 08/27/20 [History Last Taken 08/27/20 0200] ibuprofen 600 mg PO QHS 08/27/20 [History Last Taken Unknown] Allergy/AdvReac Type Severity Reaction Status Date / Time codeine AdvReac Itching Verified 08/27/20 09:11 oxycodone AdvReac Itching Verified 08/27/20 11:54 Family History (Updated 08/27/20 @ 13:12 by Lidya Lopez EQUIPMENT MAINTENANCE SUPERINTENDENT, EQUIPMENT MAINTENANCE SUPERINTENDENT-C) Father Heart disease Diabetes Mother Cancer Diabetes Surgical History History of cholecystectomy History of lithotripsy Social History (Updated 08/27/20 @ 13:13 by Lidya Lopez NP, EQUIPMENT MAINTENANCE SUPERINTENDENT-C) Smoking Status: Never smoker alcohol intake: never substance use type: does not use ROS Constitutional Constitutional: Denies change in weight, chills, fatigue, fever(s) or weakness Cardiovascular Cardiovascular: Denies chest pain, edema, lightheadedness, palpitations or syncope Respiratory/Chest Respiratory/Chest: Denies cough, dyspnea, productive cough, shortness of breath at rest, shortness of breath with exertion or wheezing Gastrointestinal Gastrointestinal: Denies abdominal pain, constipation, diarrhea, nausea or vomiting Genitourinary Genitourinary: Denies burning urination, difficulty urinating, dysuria, hematuria, urinary frequency, urinary incontinence or urinary urgency Musculoskeletal Musculoskeletal: Reports back pain; Denies joint pain or muscle weakness Integumentary Integumentary: Denies erythema, lesions, rash or wounds Neurologic Neurologic: Denies abnormal speech, confusion, dizziness, focal weakness, numbness, paresthesias, seizure-like activity or syncope Psychiatric Psychiatric: Denies anxiety or depression Hematologic/Lymphatic Hematologic/Lymphatic: Denies anemia, easy bleeding or easy bruising Allergic/Immunologic Allergic/Immunologic: Denies hives or asthma Vital Signs Vital Signs Vital Signs: 08/27/20 09:11 08/27/20 10:46 08/27/20 11:07 Temperature 97.1 F L 98.3 F Temperature Source Temporal Oral Pulse Rate 84 81 80 Respiratory Rate 16 20 H 18 Blood Pressure 190/88 H 175/88 H 137/100 H Blood Pressure Mean 122 117 112 Blood Pressure Source Blood Pressure Position Blood Pressure Location Pulse Ox 99 94 94 Oxygen Delivery Method Room Air Room Air Room Air 08/27/20 11:39 08/27/20 12:13 Temperature 97.8 F Temperature Source Oral Pulse Rate 75 80 Respiratory Rate 18 Blood Pressure 157/79 H Blood Pressure Mean 105 Blood Pressure Source Monitor Blood Pressure Position Sitting Blood Pressure Location Right Arm Pulse Ox 95 Oxygen Delivery Method Room Air Weight Weight: 333 lb Body Mass Index (BMI) 52.1 Physical Exam Const alert, oriented x3 and no apparent distress Constitutional Narrative: Morbidly obese Orientation / Consciousness: awake, oriented to person, oriented to place and oriented to time HEENT normocephalic and moist oral mucous membranes Eyes PERRL, EOMs intact bilaterally and conjunctivae normal Neck no lymphadenopathy Resp normal respiratory effort and clear to auscultation bilaterally Cardio regular rate, regular rhythm and no murmurs Peripheral Pulses: pulses 2+ throughout GI normal to inspection, nondistended, normoactive bowel sounds, non-tender and non-distended Extremity normal to inspection Skin no rashes or lesions noted Lesions: no lesions Rashes: no rashes Trauma: no lacerations or abrasions Neuro CN's II-XII intact bilaterally, no focal motor deficits, no sensory deficits noted and deep tendon reflexes 2+ bilaterally Psych mental status grossly normal and affect normal Results Lab / Micro Data Result Diagrams: 08/27/20 09:45 08/27/20 09:45 Labs: Laboratory Results - last 24 hr 08/27/20 09:45: WBC 7.7, RBC 4.87, Hgb 14.7, Hct 44.5, MCV 91.4, MCH 30.2, MCHC 33.0, RDW Std Deviation 42.1, RDW Coeff of Geno 12.7, Plt Count 288, MPV 9.6, Immature Gran % (Auto) 0.900, Neut % (Auto) 78.1 H, Lymph % (Auto) 17.3 L, [place] % (Auto) 3.3, Eos % (Auto) 0.1, Baso % (Auto) 0.3, Absolute Neuts (auto) 6.0, Absolute Lymphs (auto) 1.33, Nucleated RBC % 0 08/27/20 09:45: Sodium 134 L, Potassium 5.0, Chloride 99, Carbon Dioxide 28.0, Anion Gap 7, BUN 27 H, Creatinine 1.17 H, Estim Creat Clear Calc 49.72, Est GFR (MDRD) Af Amer 61, Est GFR (MDRD) Non-Af 50 L, BUN/Creatinine Ratio 23.1 H, Glucose 133 H, Calcium 9.3 08/27/20 09:50: Urine Color Yellow, Urine Clarity Clear, Urine pH 7.0, Ur Specific [place] 1.010, Urine Protein Negative, Urine Glucose (UA) Normal, Urine Ketones Negative, Urine Occult Blood 10 H, Urine Nitrite Positive H, Urine Bilirubin Negative, Urine Urobilinogen Normal, Ur Leukocyte Esterase 25 H, Urine RBC 0 SEEN, Urine WBC 0-5 SEEN, Ur Squamous Epith Cells 0-5 SEEN, Urine Bacteria 1+, Urine Mucus 0 SEEN Assessment & Plan Assessment/Plan (1) Intractable back pain: PLAN: 1. Intractable back pain on chronic back pain-PT/OT. Obtain MRI of lumbar spine. As needed pain regimen. Pain management consult. 2. Hypothyroidism-continue Synthroid. 3. Depression-on citalopram. 4. Chronic vertigo 5. Morbid obesity-encouraged diet and lifestyle modifications. Dietitian consult. DVT prophylaxis-Heparin subcu This patient was seen by CHANO Avelar under the supervision of Dr. Yeh. Documented by User: Dr. Chay Yeh DO 08/27/20 17:24 HPI - General General Date of Admission: 08/27/20 [facility] Medical History (Updated 08/27/20 @ 11:53 by Olga Sears) Anxiety Bone spur of foot Chronic pain Depression Hiatal hernia Hypothyroid IBS (irritable bowel syndrome) Kidney stones Migraines Obesity FREEMAN (obstructive sleep apnea) Osteoarthritis Sciatic leg pain Vertigo Vision loss of left eye Vision loss of right eye Home Medications levothyroxine 50 mcg PO DAILY 02/02/16 [History Last Taken 08/27/20 0830] ondansetron 4 mg PO Q8H PRN PRN #20 tab 02/02/16 [Rx Last Taken 03/01/17 08:00 4 mg] citalopram 20 mg PO QHS 06/03/16 [History Last Taken 03/16/17 22:00 20 mg] cyclobenzaprine 10 mg PO TID PRN #10 tab 07/31/18 [Rx Last Taken 08/26/20] ergocalciferol (vitamin D2) [Vitamin D2] 50,000 unit PO QWEEK 06/09/20 [History Last Taken 08/25/20] gabapentin 300 mg PO QHS 06/09/20 [History Last Taken 08/26/20] meloxicam 15 mg PO QHS 06/09/20 [History Last Taken 08/26/20] prednisone 40 mg PO DAILY #8 tab 08/25/20 [Rx Last Taken 08/26/20] hydrocodone-acetaminophen 1 tab PO Q8H PRN PRN 08/27/20 [History Last Taken 08/27/20 0200] ibuprofen 600 mg PO QHS 08/27/20 [History Last Taken Unknown] Allergy/AdvReac Type Severity Reaction Status Date / Time codeine AdvReac Itching Verified 08/27/20 09:11 oxycodone AdvReac Itching Verified 08/27/20 11:54 Family History (Updated 08/27/20 @ 13:12 by Lidya Lopez NP, EQUIPMENT MAINTENANCE SUPERINTENDENT-C) Father Heart disease Diabetes Mother Cancer Diabetes Surgical History History of cholecystectomy History of lithotripsy Social History (Updated 08/27/20 @ 13:13 by Lidya Lopez NP, EQUIPMENT MAINTENANCE SUPERINTENDENT-C) Smoking Status: Never smoker alcohol intake: never substance use type: does not use Results Lab / Micro Data Result Diagrams: 08/27/20 09:45 08/27/20 09:45 Charges/Coding Addendum Addendum: Patient was seen and examined today independently of Lidya Lopez, she was seen in the emergency room today at [facility] with complaints of pain radiating from her left buttocks area down her leg and into her foot, she also complained of numbness in her left foot. Patient had no complaints of any weakness however in either lower extremity. Patient been seen in the ER over the last 2 weeks for similar complaints and she had been sent home with medication. Patient states that she was seen her family doctor who had set her up with physical therapy, she has not been compliant with going to physical therapy however according to her. On examination she appeared in good health and spirits. Patient was morbidly obese. Vital signs as documented. Skin warm and dry and without overt rashes. Neck without JVD, neck was supple, trachea midline, thyroid was normal. Lungs clear bilaterally, normal air movement was noted. Heart exam notable for regular rhythm, normal sounds and absence of murmurs, rubs or gallops. Abdomen unremarkable and without evidence of organomegaly, masses, or abdominal aortic enlargement. Bowel sounds are present, abdomen is not distended. Extremities nonedematous, no cyanosis was noted, no clubbing was noted. Neuro: Cranial nerves II through XII are grossly intact, no focal motor deficits were noted, sensation to light touch and pinprick intact, motor exam 5/5 throughout. Psych: Patient is alert and oriented x3, she does not appear anxious or depressed, she does not appear agitated. Patient has no signs of lower extremity weakness, MRI of the lumbar spine will be performed today, I have placed the patient on IV Decadron and gabapentin, patient will be reevaluated tomorrow. I have reviewed Lidya Lopez's history and physical including her medical assessment and plan of care and endorse it Visit Charges OBSV E&M: 88823 Initial observation care L3
[2020-08-27] MEDS: LORazepam 2 MG/ML Syringe 1 MG IV (13:56)
[2020-08-27] MEDS: Gabapentin 400 MG Capsule PO (17:02)
[2020-08-27] MEDS: Citalopram 20 MG Tablet PO (21:24)
[2020-08-28 02:42] VITALS: BP 156/90; PULSE 78; RESP 18; TEMP 36.6; O2SAT 97
[2020-08-28] MEDS: Acetaminophen 325 MG Tablet 650 MG PO ×2 (02:46→10:07)
[2020-08-28] MEDS: Nystatin Powder 15gm Bottle 1 APPLIC TOPICAL (05:43)
[2020-08-28] MEDS: Levothyroxine 50 MCG Tablet PO (05:43)
[2020-08-28] MEDS: dexAMETHasone 4 MG/ML Vial IV ×2 (05:43→11:36)
[2020-08-28] MEDS: 0.9% Saline Lock 10 ML Syringe IV ×2 (05:44→11:36)
[2020-08-28] MEDS: Gabapentin 400 MG Capsule PO ×2 (08:30→11:36)
[2020-08-28 08:32] VITALS: BP 151/98; PULSE 72; RESP 18; TEMP 36.4; O2SAT 96
[2020-08-28 10:10] VITALS: PULSE 80
--- NOTE | 2020-08-28 10:52 | CASEMGMT ---
RN CM in to pt room to provide script for outpt therapy. Pt is unsure of where she may go at this time. Pt denied further needs.
--- NOTE | 2020-08-28 11:00 | PCM.DC ---
Discharge Instructions Diet Discharge Diet: 1999 Calorie Control Diet Activity Discharge Activity: Return to Normal Activity and Use Walker Dressing / Incision Call your doctor if you observe: Uncontrolled pain Follow Up Care Test Results: Test results from this visit will be discussed in further detail at your follow-up appointment, if applicable. Discharge Plan Admission Admit Date/Time: 08/27/20 11:24 Primary Reason for Your Visit: Back pain Attending Provider: Chay Yeh Primary Care Provider: Deedee Reyes Discharge Orders/Prescriptions Prescriptions: New gabapentin 400 mg Capsule 400 mg PO TIDCM Qty: 90 RF: 0 nystatin [Nyamyc] 100,000 unit/gram Powder 1 applic topical TID Qty: 1 RF: 0 Continued levothyroxine 50 MCG tablet 50 mcg PO DAILY RF: 0 ondansetron 4 MG tablet 4 mg PO Q8H PRN PRN (Reason: Nausea) Qty: 20 RF: 0 citalopram 20 MG tablet 20 mg PO QHS RF: 0 cyclobenzaprine 10 MG tablet 10 mg PO TID PRN (Reason: Muscle Spasm) Qty: 10 RF: 0 meloxicam 7.5 mg Tablet 15 mg PO QHS RF: 0 ergocalciferol (vitamin D2) 25,000 unit Capsule 50,000 unit PO QWEEK RF: 0 hydrocodone-acetaminophen 5-325 mg tablet 1 tab PO Q8H PRN PRN (Reason: Pain) RF: 0 Discontinued gabapentin 300 mg Tablet 300 mg PO QHS RF: 0 prednisone 20 mg tablet 40 mg PO DAILY Qty: 8 RF: 0 ibuprofen 200 mg Tablet 600 mg PO QHS RF: 0 Referrals / Follow Up: Mt Moser MD [STAFF PHYSICIAN] - See Referral Note (Call for appointment) Deedee Reyes MD [Primary Care Provider] - In 1 Week Disposition Disposition (needs filled in before D/C Order can be placed): Home, Self Care
--- NOTE | 2020-08-28 11:05 | PCM.DC.SUM ---
Documented by User: Lidya Lopez NP, MEDICAL RECORD TRANSCRIBER-C 08/28/20 11:09 Providers Date of Admission: 08/27/20 Date of Discharge: 08/28/20 Primary Care Physician: Dr. Deedee Reyes MD Reason For Visit: INTRACTABLE BACK PAIN, SCIATICA Diagnosis Discharge Diagnosis (1) Intractable back pain: Status: Acute Code(s): M54.9 - Dorsalgia, unspecified Medications at Discharge Home Medications levothyroxine 50 mcg PO DAILY 02/02/16 ondansetron 4 mg PO Q8H PRN PRN #20 tab 02/02/16 citalopram 20 mg PO QHS 06/03/16 cyclobenzaprine 10 mg PO TID PRN #10 tab 07/31/18 ergocalciferol (vitamin D2) 50,000 unit PO QWEEK 06/09/20 meloxicam 15 mg PO QHS 06/09/20 hydrocodone-acetaminophen 1 tab PO Q8H PRN PRN 08/27/20 gabapentin 400 mg PO TIDCM #90 cap 08/28/20 nystatin [Nyamyc] 1 applic TOPICAL TID #1 bottle 08/28/20 prednisone See Taper PO DAILY #30 tab 08/28/20 Hospital Course Operations None Procedures None Summary of Care Provided Minutes Spent on Discharge: 35 Hospital Course: Patient is a 60-year-old female admitted 08/27/2020 due to intractable back pain. 1. Intractable back pain on chronic back pain-MRI of lumbar spine shows mild central and moderate right foraminal stenosis at L3-L4. Otherwise unremarkable. IV Decadron during admission. Continue scheduled gabapentin. Refer to pain management as outpatient. Continue PT/OT at discharge. Follow-up with PCP in 1 week. 2. Hypothyroidism-continue Synthroid. 3. Depression-on citalopram. 4. Chronic vertigo 5. Morbid obesity-encouraged diet and lifestyle modifications. Physical Exam Const alert, oriented x3 and no apparent distress Constitutional Narrative: Morbidly obese Orientation / Consciousness: awake, oriented to person, oriented to place and oriented to time HEENT normocephalic and moist oral mucous membranes Eyes PERRL, EOMs intact bilaterally and conjunctivae normal Neck no lymphadenopathy Resp normal respiratory effort and clear to auscultation bilaterally Cardio regular rate, regular rhythm and no murmurs Peripheral Pulses: pulses 2+ throughout GI normal to inspection, nondistended, normoactive bowel sounds, non-tender and non-distended Extremity normal to inspection Skin no rashes or lesions noted Lesions: no lesions Rashes: no rashes Trauma: no lacerations or abrasions Neuro CN's II-XII intact bilaterally, no focal motor deficits, no sensory deficits noted and deep tendon reflexes 2+ bilaterally Psych mental status grossly normal and affect normal Patient seen and examined prior to discharge. Physical assessment as noted above. Patient is stable for discharge with follow up recommendations as noted above. This patient was seen by CHANO Avelar under the supervision of Dr. Yeh. Weight / BMI Weight Weight: 331 lb 8 oz Body Mass Index (BMI) 51.9 ABG / Lab / Microbiology Data Result Diagrams: 08/27/20 09:45 08/27/20 09:45 Radiography Diagnostic Testing: Radiology Impression Lumbar Spine MRI 08/27/20 11:24 IMPRESSION: Mild central and moderate right foraminal stenosis at L3-4. at 1552 Reported and signed by: Filemon Michaels MD Electronically Signed: Filemon Michaels MD at 15:51 EDT Tel , Service support , D/C Instructions Discharge Diet: 2000 Calorie Control Diet Call your doctor if you observe: Uncontrolled pain Meaningful Use Info Meaningful Use Diagnoses (Choose all that apply): None applicable Discharge Plan Admission Admit Date/Time: 08/27/20 11:24 Primary Reason for Your Visit: Back pain Attending Provider: Chay Yeh Primary Care Provider: Deedee Reyes Discharge Orders/Prescriptions Prescriptions: New gabapentin 400 mg Capsule 400 mg PO TIDCM Qty: 90 RF: 0 nystatin [Nyamyc] 100,000 unit/gram Powder 1 applic topical TID Qty: 1 RF: 0 prednisone 10 mg tablet See Taper mg PO DAILY Qty: 30 RF: 0 Continued levothyroxine 50 MCG tablet 50 mcg PO DAILY RF: 0 ondansetron 4 MG tablet 4 mg PO Q8H PRN PRN (Reason: Nausea) Qty: 20 RF: 0 citalopram 20 MG tablet 20 mg PO QHS RF: 0 cyclobenzaprine 10 MG tablet 10 mg PO TID PRN (Reason: Muscle Spasm) Qty: 10 RF: 0 meloxicam 7.5 mg Tablet 15 mg PO QHS RF: 0 ergocalciferol (vitamin D2) 25,000 unit Capsule 50,000 unit PO QWEEK RF: 0 hydrocodone-acetaminophen 5-325 mg tablet 1 tab PO Q8H PRN PRN (Reason: Pain) RF: 0 Discontinued gabapentin 300 mg Tablet 300 mg PO QHS RF: 0 prednisone 20 mg tablet 40 mg PO DAILY Qty: 8 RF: 0 ibuprofen 200 mg Tablet 600 mg PO QHS RF: 0 Referrals / Follow Up: Mt Moser MD [STAFF PHYSICIAN] - See Referral Note (Call for appointment) Deedee Reyes MD [Primary Care Provider] - In 1 Week Disposition Disposition (needs filled in before D/C Order can be placed): Home, Self Care Documented by User: Dr. Chay Yeh DO 08/28/20 17:33 Providers Date of Admission: 08/27/20 Reason For Visit: INTRACTABLE BACK PAIN, SCIATICA Medications at Discharge Home Medications levothyroxine 50 mcg PO DAILY 02/02/16 ondansetron 4 mg PO Q8H PRN PRN #20 tab 02/02/16 citalopram 20 mg PO QHS 06/03/16 cyclobenzaprine 10 mg PO TID PRN #10 tab 07/31/18 ergocalciferol (vitamin D2) 50,000 unit PO QWEEK 06/09/20 meloxicam 15 mg PO QHS 06/09/20 hydrocodone-acetaminophen 1 tab PO Q8H PRN PRN 08/27/20 gabapentin 400 mg PO TIDCM #90 cap 08/28/20 nystatin [Nyamyc] 1 applic TOPICAL TID #1 bottle 08/28/20 prednisone See Taper PO DAILY #30 tab 08/28/20 ABG / Lab / Microbiology Data Result Diagrams: 08/27/20 09:45 08/27/20 09:45 Discharge Plan Admission Admit Date/Time: 08/27/20 11:24 Primary Reason for Your Visit: Back pain Attending Provider: Chay Yeh Primary Care Provider: Deedee Reyes Discharge Orders/Prescriptions Prescriptions: New gabapentin 400 mg Capsule 400 mg PO TIDCM Qty: 90 RF: 0 nystatin [Nyamyc] 100,000 unit/gram Powder 1 applic topical TID Qty: 1 RF: 0 prednisone 10 mg tablet See Taper mg PO DAILY Qty: 30 RF: 0 Continued levothyroxine 50 MCG tablet 50 mcg PO DAILY RF: 0 ondansetron 4 MG tablet 4 mg PO Q8H PRN PRN (Reason: Nausea) Qty: 20 RF: 0 citalopram 20 MG tablet 20 mg PO QHS RF: 0 cyclobenzaprine 10 MG tablet 10 mg PO TID PRN (Reason: Muscle Spasm) Qty: 10 RF: 0 meloxicam 7.5 mg Tablet 15 mg PO QHS RF: 0 ergocalciferol (vitamin D2) 25,000 unit Capsule 50,000 unit PO QWEEK RF: 0 hydrocodone-acetaminophen 5-325 mg tablet 1 tab PO Q8H PRN PRN (Reason: Pain) RF: 0 Discontinued gabapentin 300 mg Tablet 300 mg PO QHS RF: 0 prednisone 20 mg tablet 40 mg PO DAILY Qty: 8 RF: 0 ibuprofen 200 mg Tablet 600 mg PO QHS RF: 0 Referrals / Follow Up: Mt Moser MD [STAFF PHYSICIAN] - See Referral Note (Call for appointment) Deedee Reyes MD [Primary Care Provider] - In 1 Week Disposition Disposition (needs filled in before D/C Order can be placed): Home, Self Care Charges/Coding Addendum Addendum: Patient was seen and examined independently of Lidya Lopez, I talked with her extensively today and she is being set up for gastric bypass surgery. 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 It appears to be worse on the right side which is opposite to the side where she is complaining of radicular pain. Patient states that her pain overall is improved. On examination she appeared in good health and spirits, she does not appear to be in any distress. Vital signs as documented. Skin warm and dry and without overt rashes. Neck without JVD, thyroid appears normal, trachea is midline, neck is supple. Lungs clear, normal air movement was noted. Heart exam notable for regular rhythm, normal sounds and absence of murmurs, rubs or gallops. Abdomen unremarkable and without evidence of organomegaly, masses, or abdominal aortic enlargement, bowel sounds are present in all 4 quadrants, no abdominal tenderness was noted. Patient is morbidly obese. Extremities nonedematous, no cyanosis was noted, no clubbing was noted. Neuro: Cranial nerves II through XII are grossly intact, no focal motor deficits were noted, sensation to light touch and pinprick is intact, motor exam 5/5 throughout. Psych: Patient is alert and oriented x3, she does not appear anxious or depressed, she does not appear agitated. Patient appears stable for discharge at this time, I have reviewed Lidya Lopez's discharge summary including her medical assessment and plan of care and endorse it. Visit Charges OBSV E&M: [id number] Observation care discharge
[2020-08-28 12:05] VITALS: BP 141/68; PULSE 81; RESP 18; TEMP 36.6; O2SAT 94
--- NOTE | 2020-08-28 12:16 | PHA.DC.MR ---
Pharmacy Service has performed discharge medication reconciliation for this patient. The patient's discharge medication list was reviewed for discrepancies and discrepancies were resolved. Home Medications levothyroxine 50 mcg PO DAILY 02/02/16 ondansetron 4 mg PO Q8H PRN PRN #20 tab 02/02/16 citalopram 20 mg PO QHS 06/03/16 cyclobenzaprine 10 mg PO TID PRN #10 tab 07/31/18 ergocalciferol (vitamin D2) 50,000 unit PO QWEEK 06/09/20 meloxicam 15 mg PO QHS 06/09/20 hydrocodone-acetaminophen 1 tab PO Q8H PRN PRN 08/27/20 gabapentin 400 mg PO TIDCM #90 cap 08/28/20 nystatin [Nyamyc] 1 applic TOPICAL TID #1 bottle 08/28/20
--- NOTE | 2020-08-28 12:42 | CHAPLAIN ---
Type of Pastoral Visit _x__ Initial Visit ___ Follow-up Visit ___ On-call Visit ___ General Patient Visit ___ Spiritual Assessment ___ Family Conference ___ Bereavement ___ Rapid Response ___ Code Blue ___ Other (describe below) Pastoral Care Referral From _x__ Patient ___ Family ___ Nurse ___ Physician ___ Wire Wrapping Machine Operator ___ Physical Therapy Coordinator ___ Other (describe below) Sacrament/Intervention _x__ Active listening ___ Anointing ___ Mandaen ___ Bereavement ___ Communion _x__ [place] exploration ___ x Life review _x__ Prayer ___ Reconciliation ___ Sacrament of Sick ___ Supportive presence ___ Wedding ___ Other (describe below) Pastoral Comments patient is talkative and open to ask for spiritual support and prayer;
== END 2020-08-28 12:51 | disposition home or self-care (01) ==
LOC: ED 10:52 → MS3 08-28 07:34
PROVIDERS: Admitting Provider Internal Medicine; Emergency Provider Emergency Medicine; PCP Internal Medicine; Visit Provider Internal Medicine
DX: M48.061 Spinal stenosis, lumbar region without neurogenic claudication (principal); G89.29 Other chronic pain; E03.9 Hypothyroidism, unspecified; F32.9 Major depressive disorder, single episode, unspecified; E66.01 Morbid (severe) obesity due to excess calories; F41.9 Anxiety disorder, unspecified; G47.33 Obstructive sleep apnea (adult) (pediatric); K58.9 Irritable bowel syndrome, unspecified; K44.9 Diaphragmatic hernia without obstruction or gangrene; R42 Dizziness and giddiness; H54.7 Unspecified visual loss; M19.90 Unspecified osteoarthritis, unspecified site; Z79.52 Long term (current) use of systemic steroids; Z79.899 Other long term (current) drug therapy; Z68.43 Body mass index [BMI] 50.0-59.9, adult
CPT/HCPCS: 72148; 80048; 81001; 85025; 96374; 96375; 96376; 97162; 97166; 97802; 99218; 99284; A4216; G0378; J2405

== ENCOUNTER 2021-04-09 15:02 | Inpatient (IN) | payer MEDICARE, MEDICAID, SELFPAY ==
[2021-04-09 15:02] VITALS: BP 118/74; PULSE 76; RESP 18; TEMP 36.2; O2SAT 100; BMI 51.7
--- NOTE | 2021-04-09 15:39 | CT_ITS ---
EXAM: CT ABDOMEN AND PELVIS WITHOUT INTRAVENOUS CONTRAST : 1960 CLINICAL INDICATION: Kidney Stone TECHNIQUE: Helically acquired images were obtained of the abdomen and pelvis without intravenous contrast. This CT exam was performed using one or more of the following dose reduction techniques: automated exposure control, adjustment of the mA and/or kV according to patient size, and/or use of iterative reconstruction technique. This report was created using [employer] report generation technology. COMPARISON: June 09, 2020 FINDINGS: LOWER THORAX: Unremarkable. Lung bases are clear. No cardiomegaly. No significant pericardial effusion. ABDOMEN: LIVER: Unremarkable. Homogeneous. GALLBLADDER AND BILE DUCTS: Cholecystectomy noted. No intra- or extrahepatic biliary ductal dilation. PANCREAS: Unremarkable. No focal cystic mass. SPLEEN: Unremarkable. Normal size without focal cystic or solid mass. ADRENALS: Unremarkable. No nodules. KIDNEYS AND URETERS: 8 mm right renal pelvis stone identified. There is distention of the right renal pelvis containing air and heterogeneous high and low soft tissue density. These findings may be related to recent instrumentation with residual clot within the intrarenal collecting system. Left kidney and both ureters are normal. STOMACH AND BOWEL: Unremarkable. No stomach or bowel distention. No focal inflammatory change. PELVIS: APPENDIX: No evidence of acute appendicitis. BLADDER: Small amount of urinary bladder air likely related to recent instrumentation. REPRODUCTIVE: Unremarkable as visualized. No mass. ABDOMEN and PELVIS: INTRAPERITONEAL SPACE: Unremarkable. No ascites or other fluid collection. No free air. BONES/JOINTS: Unremarkable. No suspicious lytic or blastic abnormality. SOFT TISSUES: Unremarkable. No discrete abdominal or pelvic wall hernia. VASCULATURE: Unremarkable. Abdominal aorta is non-dilated. LYMPH NODES: Unremarkable. No enlarged lymph nodes. CT/Abdomen/Pelvis without Cont IMPRESSION: 8 mm right renal pelvis stone associated with what appears to be clot and gas within the right intrarenal collecting system. Individualized dose optimization techniques were used for this CT. at 1638 Reported and signed by: Dale Bonds MD Electronically Signed: Dale Bonds MD at 16:36 EST ,
[2021-04-09 15:41] VITALS: BP 118/74; PULSE 76; RESP 18; TEMP 36.2; O2SAT 100
[2021-04-09] MEDS: 0.9% Normal Saline 1,000 ML 999 ML IV (15:56)
[2021-04-09] MEDS: Ondansetron 4 MG/2 ML Vial IV (15:56)
[2021-04-09] MEDS: Ketorolac 15 MG/ML Vial IV (15:57)
[2021-04-09] MEDS: Morphine 4 MG/ML Syringe IV ×2 (15:58→19:49)
--- NOTE | 2021-04-09 16:00 | CHAPLAIN ---
Type of Pastoral Visit ___ Initial Visit ___ Follow-up Visit ___ On-call Visit ___ General Patient Visit ___ Spiritual Assessment ___ Family Conference ___ Bereavement ___ Rapid Response ___ Code Blue ___ Other (describe below) Pastoral Care Referral From ___ Patient ___ Family ___ Nurse ___ Physician ___ Home Health Clinical Supervisor ___ Delivery And Installation Subcontractor ___ Other (describe below) Sacrament/Intervention ___ Active listening ___ Anointing ___ Samaritan ___ Bereavement ___ Communion ___ [place] exploration ___ ___ Life review ___ Prayer ___ Reconciliation ___ Sacrament of Sick ___ Supportive presence ___ Wedding ___ Other (describe below) Pastoral Comments patient and sister requested imposition of ashes for Aron Wednesday; accommodated patient and sister with ashes and offered support and prayer for patient
[2021-04-09 16:04] LABS: Absolute Lymphocyte Count 0.64 X10^3/uL (0.83-4.51); Absolute Neutrophil Count 7.5 X10^3/uL (2.0-7.7); Basophil# 0.03 X10^3/uL; Basophil% 0.4 % (0-1); Eosinophil# 0.06 X10^3/uL; Eosinophils% 0.7 % (0-5); Hematocrit 44.7 % (37-47); Hemoglobin 14.9 g/dL (12.0-15.0); Lymphocyte # 0.64 X10^3/ul (0.83-4.51); Lymphocyte % 7.6 % (19-41); Mean Corp Hgb Conc 33.3 g/dL (32-36); Mean Corpuscular Hgb 31.3 pg (27.0-32.0); Mean Corpuscular Volume 93.9 fL (81-99); Monocyte# 0.12 X10^3/uL; Monocyte% 1.4 % (0-10); NRBC Flagged by Analyzer 0 % (0-5); Neutrophil # 7.48 X10^3/uL (2.7-7.7); Neutrophil % 89.3 % (47-70); Platelet Count 197 K/mm3 (150-450); RBC Distribution Width CV 12.7 % (11.6-14.6); RBC Distribution Width SD 43.8 fl (35.1-43.9); Red Blood Count 4.76 M/mm3 (4.2-5.4); White Blood Count 8.4 K/mm3 (4.4-11.0)
[2021-04-09 16:17] VITALS: BP 118/74; PULSE 76; RESP 18; TEMP 36.2; O2SAT 100
--- NOTE | 2021-04-09 16:21 | EX.ED.DYSGE1 ---
HPI History of Present Illness Chief Complaint: Flank Pain Informant: patient Narrative Narrative: Patient is a 61-year-old female with history of kidney stones, hypothyroid and disability presenting with sudden onset of right flank pain. Patient states it started suddenly around 1130 or noon today. She has nausea with dry heaves and shivering. The right flank pain radiates to her hip. She notes she had a kidney stone about 3 to 4 years ago that had to be treated operatively with she believes Dr. Vizcarra. Report of fever. No dysuria or hematuria. Patient does have some chronic low back pain. No other complaints at this time. [facility] Medical History (Updated 04/09/21 @ 22:[address] Vonnie Samson DO) Anxiety Bone spur of foot Chest pain Chronic pain Depression GERD (gastroesophageal reflux disease) Hiatal hernia Hypertension Hypothyroid IBS (irritable bowel syndrome) Kidney stones Migraines Non-smoker Obesity FREEMAN (obstructive sleep apnea) Osteoarthritis Sciatic leg pain Sciatica Sleep apnea Vertigo Vertigo Vision loss of left eye Vision loss of right eye Home Medications citalopram 20 mg PO QHS 06/03/16 [History Last Taken 04/08/21] meloxicam 15 mg PO QHS 06/09/20 [History Last Taken 04/08/21] acetaminophen 1,000 mg PO QHS 04/09/21 [History Last Taken 04/08/21] ergocalciferol (vitamin D2) 1,250 mcg PO CABRERA 04/09/21 [History Last Taken Unknown] gabapentin 400 mg PO QHS 04/09/21 [History Last Taken 04/08/21] levothyroxine 88 mcg PO DAILY 04/09/21 [History Last Taken 04/09/21] loratadine 10 mg PO DAILY 04/09/21 [History Last Taken 04/08/21] Allergy/AdvReac Type Severity Reaction Status Date / Time codeine AdvReac Itching Verified 04/09/21 15:04 oxycodone AdvReac Itching Verified 04/09/21 15:04 Family History Father Heart disease Diabetes Mother Cancer Diabetes Surgical History History of cholecystectomy History of lithotripsy Social History Smoking Status: Never smoker alcohol intake: never substance use type: does not use ROS ROS ED Constitutional Constitutional ED: Reports chills; Denies fever(s) or sweats Eyes Eyes: Denies change in vision ENT ENT ED: Denies rhinorrhea or sore throat Cardiovascular Cardiovascular: Denies chest pain Respiratory/Chest Respiratory/Chest: Denies cough or dyspnea Gastrointestinal Gastrointestinal: Reports abdominal pain and nausea; Denies constipation, diarrhea or vomiting Genitourinary Genitourinary ED: Denies dysuria or hematuria Musculoskeletal Musculoskeletal: Reports back pain; Denies arthralgias or myalgias Integumentary Denies rash Neurologic Neurologic: Denies headache(s) or weakness EXAM Physical Exam Const Vital Signs: 04/09/21 15:02 04/09/21 15:41 04/09/21 16:17 Temperature 97.2 F L 97.2 F L 97.2 F L Temperature Source Temporal Temporal Temporal Pulse Rate 76 76 76 Respiratory Rate 18 18 18 Respiratory Effort Respiratory Pattern Blood Pressure 118/74 118/74 118/74 Blood Pressure Mean 88 88 88 Pulse Ox 100 100 100 Oxygen Delivery Method Room Air Room Air Room Air 04/09/21 16:43 04/09/21 18:31 04/09/21 20:11 Temperature 99.4 F H Temperature Source Oral Pulse Rate 91 91 Respiratory Rate 18 16 Respiratory Effort Normal Respiratory Pattern Normal Blood Pressure 124/65 H 116/66 Blood Pressure Mean 84 82 Pulse Ox 93 91 Oxygen Delivery Method Room Air Room Air Positive well nourished, well developed and obese General Appearance ED: well developed Nutritional Appearance: obese HEENT Reports moist mucous membranes Eyes PERRL and EOMs intact bilaterally Neck supple Chest Wall inspection of chest normal Resp normal respiratory effort and clear to auscultation bilaterally Cardio regular rate, regular rhythm and no murmurs GI normal to inspection, nondistended, normoactive bowel sounds, non-tender and non-distended Palpation: soft Back/Spine General Back: CVA tenderness right Extremity normal to inspection Extremity Narrative: 2+ DP pulses General Extremety ED: Negative for edema or tenderness General Extremity: Negative for edema Neuro oriented x3 and CN's II-XII intact bilaterally Sensorium / Orientation: alert Psych mental status grossly normal MDM MDM MDM Narrative Medical decision making narrative: Patient evaluated for sudden onset of right flank pain. She has associated chills. She does have a history of kidney stones. She is given IV fluids, Zofran, Toradol and morphine. Work-up remarkable for mildly elevated creatinine 1.44. Her baseline appears to be 1.2. This does not meet criteria for MINERVA. She not have a leukocytosis. Urinalysis does show positive nitrates, 500 leukoesterase, 5-10 red blood cells and 25-50 white blood cells with 3+ bacteria. CT of the abdomen pelvis obtained which shows an 8 mm right renal pelvis stone associated with what appears to be clot and gas within the right intrarenal collecting system. Patient is not had any recent instrumentation. Case is discussed with urology who is agrees that patient would benefit from admission and likely lithotripsy/instrumentation. He request the patient be admitted to the hospital service. Patient is admitted to the hospital service and patient started on IV Rocephin. Urine culture is pending. Patient is redosed with morphine in the ER. Lab Data Attestation: I reviewed the patient's lab results. Labs: Laboratory Results - last 24 hr 04/09/21 04/09/21 04/09/21 15:50 15:50 16:20 WBC 8.4 RBC 4.76 Hgb 14.9 Hct 44.7 MCV 93.9 MCH 31.3 MCHC 33.3 RDW Std Deviation 43.8 RDW Coeff of Geno 12.7 Plt Count 197 MPV 10.0 Immature Gran % (Auto) 0.600 Neut % (Auto) 89.3 H Lymph % (Auto) 7.6 L [place] % (Auto) 1.4 Eos % (Auto) 0.7 Baso % (Auto) 0.4 Absolute Neuts (auto) 7.5 Absolute Lymphs (auto) 0.64 L Nucleated RBC % 0 Sodium 138 Potassium 4.0 Chloride 104 Carbon Dioxide 28.0 Anion Gap 6 BUN 29 H Creatinine 1.44 H Estim Creat Clear Calc 39.90 Est GFR (MDRD) Af Amer 48 L Est GFR (MDRD) Non-Af 39 L BUN/Creatinine Ratio 20.1 H Glucose 126 H Calcium 9.4 Total Bilirubin 0.80 AST 17 ALT 26 Alkaline Phosphatase 86 Total Protein 7.7 Albumin 3.3 Globulin 4.4 H Albumin/Globulin Ratio 0.8 L Urine Color Yellow Urine Clarity Cloudy Urine pH 5.0 Ur Specific [place] 1.020 Urine Protein 15 H Urine Glucose (UA) Normal Urine Ketones 5 H Urine Occult Blood 150 H Urine Nitrite Positive H Urine Bilirubin Negative Urine Urobilinogen Normal Ur Leukocyte Esterase 500 H Urine RBC 5-10 SEEN Urine WBC 25-50 SEEN Ur Squamous Epith Cells 10-25 SEEN Urine Bacteria 3+ Urine Mucus 0 SEEN Radiography Diagnostic Testing: Clinical Impression(s) from Imaging Studies Abdomen/Pelvis CT 04/09/21 15:39 IMPRESSION: 8 mm right renal pelvis stone associated with what appears to be clot and gas within the right intrarenal collecting system. Individualized dose optimization techniques were used for this CT. at 1638 Reported and signed by: Dale Bonds MD Electronically Signed: Dale Bonds MD at 16:36 EST Reading Location ID and State: [facility] / [place] Tel , Service support , Discharge Plan Dx/Rx/DC Orders Clinical Impression: Pyelonephritis, Kidney stones Disposition Disposition: Acute Care Hospital [facility] Discharge Date/Time: 04/09/21 20:22
[2021-04-09 16:25] LABS: ALB/GLOB Ratio 0.8 RATIO (0.9-2.4); AST(SGOT) 17 U/L (15-37); Alanine Aminotransfer ALT/SGPT 26 U/L (13-56); Albumin, Serum 3.3 g/dL (3.2-5.0); Alkaline Phosphatase 86 U/L (45-117); Anion Gap 6 (5-15); BUN 29 mg/dL (7-18); BUN/Creat Ratio 20.1 RATIO (10-20); Calcium,Total 9.4 mg/dL (8.5-10.1); Chloride 104 mmol/L (98-107); Creatinine, Serum 1.44 mg/dL (0.55-1.02); EST Glomerular Filtration Rate 39 mL/min (>60); Est Glom Filt Rate - Afr Amer 48 mL/min (>60); Globulin 4.4 g/dL (2.2-4.2); Glucose 126 mg/dL (74-106); Protein, Total 7.7 g/dL (6.4-8.2); Sodium Level 138 mmol/L (136-145)
[2021-04-09 16:39] LABS: Mucous, Urine 0 SEEN /hpf (<or=2+)
[2021-04-09 16:44] LABS: Color, Urine Yellow (Yellow); Glucose, Dipstick Normal (Normal); Ketone-Dipstick 5 mg/dl (Negative); Leukocyte Esterase-Dipstick 500 /ul (Negative); Nitrite-Dipstick Positive (Negative); Occult Blood-Urine 150 /ul (Negative); Protein-Dipstick 15 mg/dl (Negative); Urine Bilirubin Dipstick Negative (Negative); Urine Clarity Cloudy (Clear); Urine Urobilinogen Normal (Normal)
[2021-04-09 16:54] LABS: White Blood Cells 25-50 SEEN /hpf (0-5)
[2021-04-09 16:55] LABS: Red Blood Cells-Urine 5-10 SEEN /hpf (0-5); Squamous Epithelial Cells - UA 10-25 SEEN /hpf (5-10)
[2021-04-09 16:56] LABS: Bacteria 3+ /hpf (None Seen)
[2021-04-09] MEDS: Ceftriaxone 1 GM/50 ML BAG IV (17:37)
[2021-04-09 18:31] VITALS: BP 124/65; PULSE 91; RESP 18; O2SAT 93
[2021-04-09 20:11] VITALS: BP 116/66; PULSE 91; RESP 16; TEMP 37.4; O2SAT 91
--- NOTE | 2021-04-09 20:28 | HP.PCM.HOS_ITS ---
HPI - General General Date of Admission: 04/09/21 HPI Narrative SANDIE BURRELL, is a 61 F who presents to the hospital with right flank pain which started this morning at around noon. She has had a previous kidney stone that required a stent being placed several years ago. She felt like she may have been feverish at home because of the chills however when she checked her temperature she did not have a fever. She currently feels well secondary to the morphine that had been provided to her in the ER. She states that her other medical problems are stable and at baseline and aside from the flank pain which she had as a sudden onset this morning she felt fine prior. [facility] Medical History (Updated 04/09/21 @ 20:[address] Sage Smith MD) Anxiety Bone spur of foot Chest pain Chronic pain Depression GERD (gastroesophageal reflux disease) Hiatal hernia Hypertension Hypothyroid IBS (irritable bowel syndrome) Kidney stones Migraines Non-smoker Obesity FREEMAN (obstructive sleep apnea) Osteoarthritis Sciatic leg pain Sciatica Sleep apnea Vertigo Vision loss of left eye Vision loss of right eye Home Medications citalopram 20 mg PO QHS 06/03/16 [History Last Taken 04/08/21] meloxicam 15 mg PO QHS 06/09/20 [History Last Taken 04/08/21] acetaminophen 1,000 mg PO QHS 04/09/21 [History Last Taken 04/08/21] ergocalciferol (vitamin D2) 1,250 mcg PO CABRERA 04/09/21 [History Last Taken Unknown] gabapentin 400 mg PO QHS 04/09/21 [History Last Taken 04/08/21] levothyroxine 88 mcg PO DAILY 04/09/21 [History Last Taken 04/09/21] loratadine 10 mg PO DAILY 04/09/21 [History Last Taken 04/08/21] Allergy/AdvReac Type Severity Reaction Status Date / Time codeine AdvReac Itching Verified 04/09/21 15:04 oxycodone AdvReac Itching Verified 04/09/21 15:04 Family History Father Heart disease Diabetes Mother Cancer Diabetes Surgical History History of cholecystectomy History of lithotripsy Social History Smoking Status: Never smoker alcohol intake: never substance use type: does not use ROS Constitutional Constitutional: Reports chills; Denies fatigue, fever(s) or malaise Eyes Eyes: Denies blurry vision ENT HEENT: Denies headache(s) or nasal discharge Cardiovascular Cardiovascular: Denies chest pain, dyspnea on exertion or syncope Respiratory/Chest Respiratory/Chest: Denies cough, shortness of breath at rest or shortness of breath with exertion Gastrointestinal Gastrointestinal: Denies constipation, diarrhea, nausea or vomiting Genitourinary Genitourinary: Reports flank pain; Denies dysuria Neurologic Neurologic: Denies focal weakness, numbness or tremor(s) Psychiatric Psychiatric: Denies anxiety or depression Vital Signs Vital Signs Vital Signs: 04/09/21 15:02 04/09/21 15:41 04/09/21 16:17 Temperature 97.2 F L 97.2 F L 97.2 F L Temperature Source Temporal Temporal Temporal Pulse Rate 76 76 76 Respiratory Rate 18 18 18 Respiratory Effort Respiratory Pattern Blood Pressure 118/74 118/74 118/74 Blood Pressure Mean 88 88 88 Pulse Ox 100 100 100 Oxygen Delivery Method Room Air Room Air Room Air 04/09/21 16:43 04/09/21 18:31 04/09/21 20:11 Temperature 99.4 F H Temperature Source Oral Pulse Rate 91 91 Respiratory Rate 18 16 Respiratory Effort Normal Respiratory Pattern Normal Blood Pressure 124/65 H 116/66 Blood Pressure Mean 84 82 Pulse Ox 93 91 Oxygen Delivery Method Room Air Room Air Weight Weight: 330 lb Body Mass Index (BMI) 51.7 Physical Exam Const alert, oriented x3 and no apparent distress General Appearance: cooperative Nutritional Appearance: morbidly obese HEENT normocephalic and moist oral mucous membranes Eyes PERRL, EOMs intact bilaterally and conjunctivae normal Neck supple and no JVD Resp normal respiratory effort, no retractions, no use of accessory muscles and clear to auscultation bilaterally Auscultation: Negative for crackles, rales, rhonchi or wheezes Cardio regular rate, regular rhythm, S1 normal heart sound, S2 normal heart sound and no murmurs GI soft to palpation, non-tender and non-distended; Negative for hepatosplenomegaly Bladder / Kidney Exam: no CVA tenderness Extremity no clubbing, cyanosis or edema Skin no rashes or lesions noted Neuro no focal motor deficits and no sensory deficits noted Psych affect normal Appearance: appropriate Results Lab / Micro Data Result Diagrams: 04/09/21 15:50 04/09/21 15:50 Labs: Laboratory Results - last 24 hr 04/09/21 15:50: WBC 8.4, RBC 4.76, Hgb 14.9, Hct 44.7, MCV 93.9, MCH 31.3, MCHC 33.3, RDW Std Deviation 43.8, RDW Coeff of Geno 12.7, Plt Count 197, MPV 10.0, Immature Gran % (Auto) 0.600, Neut % (Auto) 89.3 H, Lymph % (Auto) 7.6 L, [place] % (Auto) 1.4, Eos % (Auto) 0.7, Baso % (Auto) 0.4, Absolute Neuts (auto) 7.5, Absolute Lymphs (auto) 0.64 L, Nucleated RBC % 0 04/09/21 15:50: Sodium 138, Potassium 4.0, Chloride 104, Carbon Dioxide 28.0, Anion Gap 6, BUN 29 H, Creatinine 1.44 H, Estim Creat Clear Calc 39.90, Est GFR (MDRD) Af Amer 48 L, Est GFR (MDRD) Non-Af 39 L, BUN/Creatinine Ratio 20.1 H, Glucose 126 H, Calcium 9.4, Total Bilirubin 0.80, AST 17, ALT 26, Alkaline Phosphatase 86, Total Protein 7.7, Albumin 3.3, Globulin 4.4 H, Albumin/Globulin Ratio 0.8 L 04/09/21 16:20: Urine Color Yellow, Urine Clarity Cloudy, Urine pH 5.0, Ur Specific [place] 1.020, Urine Protein 15 H, Urine Glucose (UA) Normal, Urine Ketones 5 H, Urine Occult Blood 150 H, Urine Nitrite Positive H, Urine Bilirubin Negative, Urine Urobilinogen Normal, Ur Leukocyte Esterase 500 H, Urine RBC 5-10 SEEN, Urine WBC 25-50 SEEN, Ur Squamous Epith Cells 10-25 SEEN, Urine Bacteria 3+, Urine Mucus 0 SEEN Micro: Microbiology 04/09/21 17:40 Mucosa - Nasopharyngeal Influenza Types A,B Direct FA (ZACK) - Final 04/09/21 17:40 Nasal Secretion SARS-CoV-2 Antigen (Rapid) - Final Radiology Impression Abdomen/Pelvis CT 04/09/21 15:39 IMPRESSION: 8 mm right renal pelvis stone associated with what appears to be clot and gas within the right intrarenal collecting system. Individualized dose optimization techniques were used for this CT. at 1638 Reported and signed by: Dale Bonds MD Electronically Signed: Dale Bonds MD at 16:36 EST , Assessment & Plan Assessment/Plan (1) Kidney stones: (2) Pyelonephritis: PLAN: 1. Pyelonephritis secondary to right-sided nephrolithiasis ?Continue with Rocephin ?She has no significant medical problems at this time as she is not septic and solely requires urological intervention for this 8 mm stone in the right renal pelvis ?CT of her abdomen demonstrated a possible clot with gas in the right intrarenal collecting system, urological intervention is likely to be necessary ?We will make her n.p.o. at midnight for possible intervention in the morning by urology 2. Hypothyroidism ?Stable ?Continue her Synthroid 3. Depression/anxiety ?Stable ?Continue with citalopram 4. Morbid obesity ?BMI of 51.7, recommend weight loss management and lifestyle management DVT: Lovenox Charges/Coding Visit Charges Inpatient E&M: 09397 Init Hosp L2
[2021-04-09 20:32] VITALS: BMI 51.0
[2021-04-09 20:47] VITALS: BP 128/66; PULSE 88; RESP 20; TEMP 37.2; O2SAT 96
[2021-04-09] MEDS: Acetaminophen 325 MG Tablet 650 MG PO (21:18)
[2021-04-09] MEDS: MELATONIN 3 MG TABLET PO (21:18)
[2021-04-09] MEDS: Gabapentin 400 MG Capsule PO (21:18)
[2021-04-09] MEDS: Citalopram 20 MG Tablet PO (21:18)
[2021-04-09] MEDS: Nystatin Powder 15gm Bottle 1 APPLIC TOPICAL (21:23)
[2021-04-09 21:56] VITALS: BMI 51.0
[2021-04-10] VITALS (39 sets, daily range): BP systolic 64–141; BP diastolic 39–98; PULSE 75–106; RESP 12–222; TEMP 37.3–39.3; O2SAT 80–99; BMI 51.0
[2021-04-10] MEDS: Morphine 2 MG/ML Syringe IV (01:58)
[2021-04-10] MEDS: 0.9% Saline Lock 10 ML Syringe IV (01:58)
[2021-04-10 05:46] LABS: Absolute Lymphocyte Count 0.59 X10^3/uL (0.83-4.51); Basophil# 0.02 X10^3/uL; Basophil% 0.2 % (0-1); Hematocrit 41.7 % (37-47); Hemoglobin 13.6 g/dL (12.0-15.0); Lymphocyte # 0.59 X10^3/ul (0.83-4.51); Lymphocyte % 6.4 % (19-41); Mean Corp Hgb Conc 32.6 g/dL (32-36); Mean Corpuscular Volume 92.1 fL (81-99); Mean Platelet Vol. 10.4 fl (6.2-12.0); Monocyte# 0.52 X10^3/uL; Monocyte% 5.6 % (0-10); NRBC Flagged by Analyzer 0 % (0-5); Neutrophil # 8.03 X10^3/uL (2.7-7.7); Neutrophil % 86.7 % (47-70); POSITIVE DIFFERENTIAL YES; Platelet Count 164 K/mm3 (150-450); RBC Distribution Width CV 13.4 % (11.6-14.6); RBC Distribution Width SD 45.3 fl (35.1-43.9); Red Blood Count 4.53 M/mm3 (4.2-5.4); White Blood Count 9.3 K/mm3 (4.4-11.0)
[2021-04-10 05:49] LABS: Differential Indicated SCAN CRITERIA MET
--- NOTE | 2021-04-10 06:00 | EKG12_ITS ---
Test Reason : AM EKG Blood Pressure : / mmHG Vent. Rate : 130 BPM Atrial Rate : 078 BPM P-R Int : 000 ms QRS Dur : 104 ms QT Int : 406 ms P-R-T Axes : 000 059 064 degrees QTc Int : 597 ms Sinus rhythm with frequent Premature ventricular complexes Abnormal ECG When compared with ECG of 10-APR-2021 05:22, MANUAL COMPARISON REQUIRED, DATA IS UNCONFIRMED Confirmed by HARJIT MEYERS, CHANA ([id number]), editorial intern BRIAN YANG ([id number]) on 04/11/2021 1:39:27 PM Referred By: RICARDO Confirmed By:COLE LOMBARDI MD
[2021-04-10] MEDS: Levothyroxine 88 MCG Tablet PO (06:05)
[2021-04-10] MEDS: Nystatin Powder 15gm Bottle 1 APPLIC TOPICAL ×3 (06:05→21:33)
[2021-04-10] MEDS: Acetaminophen 325 MG Tablet 650 MG PO (06:05)
[2021-04-10 06:11] LABS: Anion Gap 5 (5-15); BUN 36 mg/dL (7-18); Calcium,Total 8.7 mg/dL (8.5-10.1); Chloride 105 mmol/L (98-107); Creatinine, Serum 2.12 mg/dL (0.55-1.02); EST Glomerular Filtration Rate 25 mL/min (>60); Est Glom Filt Rate - Afr Amer 30 mL/min (>60); Estimated Creatinine Clearance 28.11 ml/min; Glucose 117 mg/dL (74-106); Potassium 4.9 mmol/L (3.5-5.1); Sodium Level 135 mmol/L (136-145)
[2021-04-10 06:37] LABS: Thyroid Stim Hormone (TSH) 1.33 uIU/mL (0.358-3.74)
[2021-04-10 06:43] LABS: Differential Comment SCANNED
--- NOTE | 2021-04-10 07:31 | PCM.CONS.U ---
Assessment & Plan Assessment/Plan (1) Kidney stones: PLAN: Continue with hydration continue with IV fluids resuscitation address medical problems creatinine is elevated continue with hydration. (2) Pyelonephritis: PLAN: Plan to check a KUB today and plan for cystoscopy stent placement tomorrow. Possible may have to do sooner if her clinical condition requires it. HPI Consult Data Date of Consult: 04/10/21 HPI Narrative HPI Narrative: SANDIE BURRELL, is a 61 F who presents with a stone in the right kidney, and a pyelonephritis she been having some subjective fevers at home she was admitted last night by the hospital service from the emergency room she has a very long list of chronic medical problems. She is on broad-spectrum antibiotics clinically stable this morning but she did spike a fever this morning. No urine output recorded overnight [facility] Medical History (Updated 04/09/21 @ 22:[address] Vonnie Samson DO) Anxiety Bone spur of foot Chest pain Chronic pain Depression GERD (gastroesophageal reflux disease) Hiatal hernia Hypertension Hypothyroid IBS (irritable bowel syndrome) Kidney stones Migraines Non-smoker Obesity FREEMAN (obstructive sleep apnea) Osteoarthritis Sciatic leg pain Sciatica Sleep apnea Vertigo Vertigo Vision loss of left eye Vision loss of right eye Home Medications citalopram 20 mg PO QHS 06/03/16 [History Last Taken 04/08/21] meloxicam 15 mg PO QHS 06/09/20 [History Last Taken 04/08/21] acetaminophen 1,000 mg PO QHS 04/09/21 [History Last Taken 04/08/21] ergocalciferol (vitamin D2) 1,250 mcg PO CABRERA 04/09/21 [History Last Taken Unknown] gabapentin 400 mg PO QHS 04/09/21 [History Last Taken 04/08/21] levothyroxine 88 mcg PO DAILY 04/09/21 [History Last Taken 04/09/21] loratadine 10 mg PO DAILY 04/09/21 [History Last Taken 04/08/21] Allergy/AdvReac Type Severity Reaction Status Date / Time codeine AdvReac Itching Verified 04/09/21 15:04 oxycodone AdvReac Itching Verified 04/09/21 15:04 Family History Father Heart disease Diabetes Mother Cancer Diabetes Surgical History History of cholecystectomy History of lithotripsy Social History Smoking Status: Never smoker alcohol intake: never substance use type: does not use ROS Constitutional Constitutional: Denies chills, fever(s) or malaise Eyes Eyes: Denies blurry vision or change in vision ENT HEENT: Reports none Cardiovascular Cardiovascular: Denies chest pain or palpitations Respiratory/Chest Respiratory/Chest: Denies cough or shortness of breath with exertion Gastrointestinal Gastrointestinal: Denies abdominal pain, constipation or diarrhea Musculoskeletal Musculoskeletal: Denies back pain, joint stiffness or joint swelling Integumentary Integumentary: Denies dry skin, jaundice, lesions or rash Neurologic Neurologic: Denies confusion, syncope or weakness Psychiatric Psychiatric: Reports none; Denies anxiety or depression Endocrine Endocrinology: Denies excessive sweating, fatigue or flushing Hematologic/Lymphatic Hematologic/Lymphatic: Denies anemia, easy bleeding or easy bruising Physical Exam Const alert and oriented x3 General Appearance: cooperative HEENT normocephalic, head/scalp atraumatic, EAC's normal and TM's normal bilaterally Eyes PERRL and EOMs intact bilaterally Pupil: sluggish Neck no lymphadenopathy, supple and no JVD General: trachea midline Lymph Lymphatic: no lymphadenopathy noted, lymphedema and lymphadenopathy Resp normal respiratory effort, normal air movement and clear to auscultation bilaterally Cardio regular rate, regular rhythm and peripheral pulses 2+ throughout GI soft to palpation, non-tender and non-distended Extremity normal capillary refill and no clubbing, cyanosis or edema General Extremity: no tenderness to palpation of joints or extremities Skin no rashes or lesions noted General Skin Exam: turgor normal Lesions: no lesions Rashes: no rashes Neuro CN's II-XII intact bilaterally Speech: speech normal Motor Exam: strength 5/5 throughout; Negative for general weakness Psych thought process normal, cooperative and affect normal Appearance: appropriate Lab / Micro Data Result Diagrams: 04/10/21 05:39 04/10/21 05:39 Labs: Laboratory Results - last 24 hr 04/09/21 15:50: WBC 8.4, RBC 4.76, Hgb 14.9, Hct 44.7, MCV 93.9, MCH 31.3, MCHC 33.3, RDW Std Deviation 43.8, RDW Coeff of Geno 12.7, Plt Count 197, MPV 10.0, Immature Gran % (Auto) 0.600, Neut % (Auto) 89.3 H, Lymph % (Auto) 7.6 L, [place] % (Auto) 1.4, Eos % (Auto) 0.7, Baso % (Auto) 0.4, Absolute Neuts (auto) 7.5, Absolute Lymphs (auto) 0.64 L, Nucleated RBC % 0 04/09/21 15:50: Sodium 138, Potassium 4.0, Chloride 104, Carbon Dioxide 28.0, Anion Gap 6, BUN 29 H, Creatinine 1.44 H, Estim Creat Clear Calc 39.90, Est GFR (MDRD) Af Amer 48 L, Est GFR (MDRD) Non-Af 39 L, BUN/Creatinine Ratio 20.1 H, Glucose 126 H, Calcium 9.4, Total Bilirubin 0.80, AST 17, ALT 26, Alkaline Phosphatase 86, Total Protein 7.7, Albumin 3.3, Globulin 4.4 H, Albumin/Globulin Ratio 0.8 L 04/09/21 16:20: Urine Color Yellow, Urine Clarity Cloudy, Urine pH 5.0, Ur Specific [place] 1.020, Urine Protein 15 H, Urine Glucose (UA) Normal, Urine Ketones 5 H, Urine Occult Blood 150 H, Urine Nitrite Positive H, Urine Bilirubin Negative, Urine Urobilinogen Normal, Ur Leukocyte Esterase 500 H, Urine RBC 5-10 SEEN, Urine WBC 25-50 SEEN, Ur Squamous Epith Cells 10-25 SEEN, Urine Bacteria 3+, Urine Mucus 0 SEEN 04/10/21 05:39: WBC 9.3, RBC 4.53, Hgb 13.6, Hct 41.7, MCV 92.1, MCH 30.0, MCHC 32.6, RDW Std Deviation 45.3 H, RDW Coeff of Geno 13.4, Plt Count 164, MPV 10.4, Immature Gran % (Auto) 1.100 H, Neut % (Auto) 86.7 H, Lymph % (Auto) 6.4 L, [place] % (Auto) 5.6, Eos % (Auto) 0.0, Baso % (Auto) 0.2, Absolute Neuts (auto) 8.0 H, Absolute Lymphs (auto) 0.59 L, Nucleated RBC % 0, Differential Comment SCANNED 04/10/21 05:39: Sodium 135 L, Potassium 4.9, Chloride 105, Carbon Dioxide 25.0, Anion Gap 5, BUN 36 H, Creatinine 2.12 H, Estim Creat Clear Calc 28.11, Est GFR (MDRD) Af Amer 30 L, Est GFR (MDRD) Non-Af 25 L, BUN/Creatinine Ratio 17.0, Glucose 117 H, Calcium 8.7 04/10/21 05:39: TSH 1.33 Micro: Microbiology 04/09/21 17:40 Mucosa - Nasopharyngeal Influenza Types A,B Direct FA (ZACK) - Final 04/09/21 17:40 Nasal Secretion SARS-CoV-2 Antigen (Rapid) - Final Radiology Impression Abdomen/Pelvis CT 04/09/21 15:39 IMPRESSION: 8 mm right renal pelvis stone associated with what appears to be clot and gas within the right intrarenal collecting system. Individualized dose optimization techniques were used for this CT. at 1638 Reported and signed by: Dale Bonds MD Electronically Signed: Dale Bonds MD at 16:36 EST ,
[2021-04-10] MEDS: 0.9% Normal Saline 1,000 ML 999 ML IV ×5 (10:02→12:47)
[2021-04-10 10:06] LABS: Allen Test Positive; Base Excess -4 mmol/L (-2 to +2); Bicarbonate 22.2 mmol/L (22-26); Blood Gas Specimen Type ART; FI02 35; O2 Delivery Device BiPAP; PEEP 10; PO2 80 mmHG (75-100); SITE R Radial; SO2 95 % (95-99); Total Carbon Dioxide 23 mmol/L; pCO2 40.8 mmHg (35-45); pH 7.34 (7.35-7.45)
--- NOTE | 2021-04-10 11:20 | RAD_ITS ---
STUDY: X-RAY CHEST REASON FOR EXAM: Female, 61 years old. Right IJ placement TECHNIQUE: Single AP portable view of the chest. COMPARISON: None. FINDINGS: A right-sided internal jugular venous catheter has been placed. The tip is at the junction of the superior vena cava and right brachiocephalic vein. EKG electrodes are seen. The lungs are clear and expanded. There is no demonstrated pleural abnormality. Mild cardiomegaly. Normal mediastinum and stefany. Normal visualized pulmonary arteries. There is atherosclerotic tortuosity of the aortic arch and descending thoracic aorta. Normal visualized thoracic spine. Normal visualized ribs, clavicles, and shoulders. There is no demonstrated abnormality of the visualized soft tissue structures of the upper abdomen. RAD/CXR for Line Placement IMPRESSION: The tip of the right internal jugular venous catheter is at the junction of the right brachiocephalic vein and superior vena cava. There is no evidence of pneumothorax. Electronically Signed: Kevan Fernandes MD at 12:06 EST ,
[2021-04-10 11:29] LABS: Lactic Acid 2.7 mmol/L (0.4-1.9)
--- NOTE | 2021-04-10 11:37 | PCM.PN.HOSP ---
Subjective Subjective Called early this morning secondary to hypotension and increased somnolence. When I arrived at the bedside the patient was fairly sleepy but would arouse to verbal and tactile stimulation however she was fairly sleepy. Given her findings she meets criteria for sepsis and we are transferring him to the ICU. The patient is a documented DNR CCA with no intubation but is okay for noninvasive ventilation, lines and pressors. Objective Data Objective Data Vital Signs: Vital Signs Temp Pulse Resp BP Pulse Ox 102.8 F H 90 18 141/97 H 97 04/10/21 06:09 04/10/21 02:07 04/10/21 02:07 04/10/21 02:07 04/10/21 02:07 Oxygen Delivery Method Room Air Weight: 152.7 kg Body Mass Index (BMI) 51.0 Intake & Output: Intake and Output for Last 24 Hours 04/08/21 04/09/21 04/10/21 23:59 23:59 23:59 Intake Total 1050 / 1410 1420 / 1420 Balance 1050 / 1410 1420 / 1420 Lab / Micro Data Result Diagrams: 04/10/21 05:39 04/10/21 05:39 Labs: Laboratory Results - last 24 hr 04/09/21 15:50: WBC 8.4, RBC 4.76, Hgb 14.9, Hct 44.7, MCV 93.9, MCH 31.3, MCHC 33.3, RDW Std Deviation 43.8, RDW Coeff of Geno 12.7, Plt Count 197, MPV 10.0, Immature Gran % (Auto) 0.600, Neut % (Auto) 89.3 H, Lymph % (Auto) 7.6 L, [place] % (Auto) 1.4, Eos % (Auto) 0.7, Baso % (Auto) 0.4, Absolute Neuts (auto) 7.5, Absolute Lymphs (auto) 0.64 L, Nucleated RBC % 0 04/09/21 15:50: Sodium 138, Potassium 4.0, Chloride 104, Carbon Dioxide 28.0, Anion Gap 6, BUN 29 H, Creatinine 1.44 H, Estim Creat Clear Calc 39.90, Est GFR (MDRD) Af Amer 48 L, Est GFR (MDRD) Non-Af 39 L, BUN/Creatinine Ratio 20.1 H, Glucose 126 H, Calcium 9.4, Total Bilirubin 0.80, AST 17, ALT 26, Alkaline Phosphatase 86, Total Protein 7.7, Albumin 3.3, Globulin 4.4 H, Albumin/Globulin Ratio 0.8 L 04/09/21 16:20: Urine Color Yellow, Urine Clarity Cloudy, Urine pH 5.0, Ur Specific [place] 1.020, Urine Protein 15 H, Urine Glucose (UA) Normal, Urine Ketones 5 H, Urine Occult Blood 150 H, Urine Nitrite Positive H, Urine Bilirubin Negative, Urine Urobilinogen Normal, Ur Leukocyte Esterase 500 H, Urine RBC 5-10 SEEN, Urine WBC 25-50 SEEN, Ur Squamous Epith Cells 10-25 SEEN, Urine Bacteria 3+, Urine Mucus 0 SEEN 04/10/21 05:39: WBC 9.3, RBC 4.53, Hgb 13.6, Hct 41.7, MCV 92.1, MCH 30.0, MCHC 32.6, RDW Std Deviation 45.3 H, RDW Coeff of Geno 13.4, Plt Count 164, MPV 10.4, Immature Gran % (Auto) 1.100 H, Neut % (Auto) 86.7 H, Lymph % (Auto) 6.4 L, [place] % (Auto) 5.6, Eos % (Auto) 0.0, Baso % (Auto) 0.2, Absolute Neuts (auto) 8.0 H, Absolute Lymphs (auto) 0.59 L, Nucleated RBC % 0, Differential Comment SCANNED 04/10/21 05:39: Sodium 135 L, Potassium 4.9, Chloride 105, Carbon Dioxide 25.0, Anion Gap 5, BUN 36 H, Creatinine 2.12 H, Estim Creat Clear Calc 28.11, Est GFR (MDRD) Af Amer 30 L, Est GFR (MDRD) Non-Af 25 L, BUN/Creatinine Ratio 17.0, Glucose 117 H, Calcium 8.7 04/10/21 05:39: TSH 1.33 04/10/21 10:15: Lactic Acid 2.7 H* Micro: Microbiology 04/09/21 17:40 Mucosa - Nasopharyngeal Influenza Types A,B Direct FA (ZACK) - Final 04/09/21 17:40 Nasal Secretion SARS-CoV-2 Antigen (Rapid) - Final ABG Data ABG results: ABG 04/10/21 09:59 Specimen Type ART Sample Site R Radial pH 7.34 L Bicarbonate Actual 22.2 Total CO2 23 Base Excess -4 L O2 Saturation 95 O2 % 35 ABG pCO2 40.8 ABG pO2 80 Eloy Test Positive O2 Delivery Device BiPAP POC PEEP 10 Radiography Diagnostic Testing: Radiology Impression Abdomen/Pelvis CT 04/09/21 15:39 IMPRESSION: 8 mm right renal pelvis stone associated with what appears to be clot and gas within the right intrarenal collecting system. Individualized dose optimization techniques were used for this CT. at 1638 Reported and signed by: Dale Bonds MD Electronically Signed: Dale Bonds MD at 16:36 EST , Physical Exam Const Constitutional Narrative: Very sleepy, morbidly obese, upper middle-aged white female lying in bed, nursing at bedside, patient appears toxic Orientation / Consciousness: confused, disoriented and lethargic Exam Limitations: altered mental status Nutritional Appearance: morbidly obese HEENT head/scalp atraumatic HEENT Narrative: Mallampati is 3-4, dentition is fair, no thrush present but mucous membranes appear dry Head and Scalp: normocephalic Eyes PERRL, EOMs intact bilaterally and conjunctivae normal Eyes Narrative: No scleral icterus Neck no lymphadenopathy, supple and no JVD Neck Narrative: Neck is short and thick Resp normal respiratory effort, no retractions, no use of accessory muscles and clear to auscultation bilaterally Resp Narrative: Breathing is somewhat shallow, bases diminished but no adventitious sounds noted Auscultation: Negative for crackles, rales, rhonchi or wheezes Cardio regular rate, regular rhythm, S1 normal heart sound, S2 normal heart sound, no gallops and no clicks GI normal to inspection, nondistended, normoactive bowel sounds, soft to palpation, non-tender and non-distended GI Narrative: Large pannus Extremity no clubbing, cyanosis or edema Extremity Narrative: Extremities are cool but dry, peripheral pulses are diminished at 1+, cap refill is 1+ Skin no rashes or lesions noted, no wounds, skin turgor normal, no jaundice, no petechiae and no mottling Neuro Neuro Narrative: Will spontaneously move all extremities and no signs of focal deficits however patient is markedly confused and doing a detailed neuro exam is difficult, cranial nerves appear normal at this time Psych Psych Narrative: Unable to assess given mental status Assessment & Plan Assessment/Plan (1) Septic shock: (2) Pyelonephritis: (3) Kidney stones: (4) Metabolic encephalopathy: (5) MINERVA (acute kidney injury): (6) Lactic acidosis: (7) Acute hypotension: (8) Acute respiratory failure with hypoxia: PLAN: Septic shock secondary to acute pyelonephritis and suspected gram-negative sepsis -Patient became acutely hypotensive while on the medical floor and therefore has been transferred to the ICU -Suspect gram-negative sepsis with pyelonephritis -Blood cultures added and urine cultures pending -Patient meets sepsis criteria with lactic acid elevation, acute kidney injury, temperature of 102.8, acute mental status change, hypoxia -Patient currently receiving 30 cc/kg IV fluids but thus far has been refractory and I suspect she will need pressors -Levophed has been ordered and will need to maintain MAP greater than 65 -Antibiotics broadened to vancomycin and Zosyn--> no previous cultures to assist with antibiotic -We have been able to contact Dr. Vizcarra who plans on taking her to the OR for relief of her ureteral obstruction with stent placement -Critical care medicine has been consulted -May need to consult ID when cultures result -Patient is a DNR CCA with no intubation but is okay for noninvasive ventilation, pressors, and central line placement Pyelonephritis -8 mm right renal pelvis stone noted on CT at admission with what appeared to be a clot and gas in the right intrarenal collecting system -Stent placement today per urology -Antibiotics as above -Await cultures Lactic acidosis -Secondary to above -Cycle MINERVA -Continue aggressive hydration -Serum creatinine appears to be between 0.9 and 1.1 -Keep MAP greater than 65 -Continue IV fluids as above -Avoid nephrotoxins -Repeat BMP in a.m. Metabolic encephalopathy -Suspect related to hypotension and acute sepsis -Continue to monitor clinically Acute hypoxic respiratory failure -Likely related to sepsis -She may have a component of FREEMAN as well -Continue BiPAP until her mental status has improved -Likely than continue noninvasive ventilation at night Hypothyroidism -Continue levothyroxine once mental status is improved Neuropathy -Hold home gabapentin Depression -Hold home citalopram DVT prophylaxis Lovenox 40 twice daily -SCDs CODE STATUS -DNR CCA with no intubation okay for central lines, noninvasive relation, pressors
--- NOTE | 2021-04-10 11:46 | CON.PCM.CC_ITS ---
Assessment & Plan Assessment/Plan (1) Septic shock: (2) Pyelonephritis: (3) Kidney stones: (4) Metabolic encephalopathy: (5) MINERVA (acute kidney injury): (6) Lactic acidosis: (7) Acute hypotension: (8) Acute respiratory failure with hypoxia: PLAN: RECOMMENDATIONS: 1. Urgently to the OR with urology for decompression 2. Initiate pressors following fluid bolus if necessary 3. Continue broad-spectrum antibiotics pending cultures 4. Okay to change BiPAP to with sleep when mentation improves 5. Hold baseline medications for now IMPRESSIONS: 1. Gram-negative septic shock secondary to pyelonephritis secondary to obstructing renal stone Patient with dilated collecting system on the right with an associated 8 [address] stone[address] Unable to place nephrostomy, so urology was contacted and is taking patient to the OR urgently. Blood cultures and urine cultures are pending, but clinical course is consistent with gram-negative's. High clinical suspicion for E. coli. Patient has received fluid boluses per protocol. However, high clinical suspicion that pressors will be required. Patient does have acute kidney injury is a sign of endorgan damage. 2. Acute kidney injury Clinical suspicion for post renal and prerenal etiology. Patient with obstructing stone on the right along with decreased blood pressures. Baseline creatinine appears to be around 1. Avoid nephrotoxic medications. No i ndication for renal replacement therapy at this time. We will have to watch electrolytes closely for post ATN diuresis. 3. Acute hypoxic respiratory failure/metabolic encephalopathy Clinical suspicion for hypoxia secondary to upper airway obstruction associated with metabolic encephalopathy. Will use BiPAP for now, but anticipate that this can be transitioned to nocturnal use only once problem 1 and 2 are addressed. Monitor for signs and symptoms of pneumonia. Hold on bronchodilators for now. ABG showed adequate oxygenation and ventilation with BiPAP therapy. 4. Morbid obesity/hypothyroidism/neuropathy/depression/reported FREEMAN Complicates care, management, recovery and prognosis. Hold baseline medications for now. Can reinitiate once condition stabilizes. Patient is a DNR Comfort Care arrest without intubation per the sister. She understands that intubation would likely be temporary, but states that her sister was very clear previously. TIME: 140 minutes of critical care time spent addressing patient's septic shock, acute respiratory failure, acute kidney injury, review of all data and collaboration with care team HPI Consult Data Date of Consult: 04/10/21 HPI Narrative HPI Narrative: SANDIE BURRELL is a 61 F, with past medical history listed below, who presents to [facility] on 04/09/[facility]21 secondary to acute onset of right flank pain approximately 3 hours prior to coming to the ER. This was associated with nausea, dry heaves and shivering. Patient did report the pain had radiated to her head and felt similar to a kidney stone she had 3 or 4 years ago that was treated with lithotripsy by Dr. Vizcarra. In the ER, patient was normotensive, not tachycardic and saturating well on room air. Laboratory work-up was significant for white blood cell count of 8.4, hemoglobin 14.9 and elevated creatinine of 1.44. Liver functions were within normal limits. UA showed 3+ bacteria, leukocyte esterase and nitrites. A CT of the abdomen and pelvis was obtained showing an 8 mm right renal pelvis stone with gas and dilated collecting system. Patient was treated with IV fluids, Zofran, Toradol and morphine. Patient was also given IV Rocephin and admitted to the PCU for further evaluation. Patient did okay overnight, but this morning became hypotensive, decreased responsiveness and tachycardia. Patient was placed on BiPAP and admitted to the intensive care unit. Sepsis protocol was initiated and patient was ordered 5 L (30 cc/kg) of fluids. Patient arrived in the intensive care unit at 9:30 in the morning. Patient was immediately evaluated by myself. Patient was opening her eyes to voice but not following commands. Patient sister was in the waiting room, so I obtained some history from her. Patient reportedly has no children and has very clearly stated that she does not want to be resuscitated or intubated. Patient reportedly does not take good care of herself, but has been working towards getting bariatric surgery. Unable to obtain a full review of systems secondary to mentation. [facility] Medical History Anxiety Bone spur of foot Chest pain Chronic pain Depression GERD (gastroesophageal reflux disease) Hiatal hernia Hypertension Hypothyroid IBS (irritable bowel syndrome) Kidney stones Migraines Non-smoker Obesity FREEMAN (obstructive sleep apnea) Osteoarthritis Sciatic leg pain Sciatica Sleep apnea Vertigo Vertigo Vision loss of left eye Vision loss of right eye Home Medications citalopram 20 mg PO QHS 06/03/16 [History Last Taken 04/08/21] meloxicam 15 mg PO QHS 06/09/20 [History Last Taken 04/08/21] acetaminophen 1,000 mg PO QHS 04/09/21 [History Last Taken 04/08/21] ergocalciferol (vitamin D2) 1,250 mcg PO CABRERA 04/09/21 [History Last Taken Unknown] gabapentin 400 mg PO QHS 04/09/21 [History Last Taken 04/08/21] levothyroxine 88 mcg PO DAILY 04/09/21 [History Last Taken 04/09/21] loratadine 10 mg PO DAILY 04/09/21 [History Last Taken 04/08/21] Allergy/AdvReac Type Severity Reaction Status Date / Time codeine AdvReac Itching Verified 04/09/21 15:04 oxycodone AdvReac Itching Verified 04/09/21 15:04 Family History Father Heart disease Diabetes Mother Cancer Diabetes Surgical History History of cholecystectomy History of lithotripsy Social History Smoking Status: Never smoker alcohol intake: never substance use type: does not use ROS Review of Systems ROS Unobtainable: due to encephalopathy Physical Exam Const Orientation / Consciousness: confused, disoriented, lethargic and other Other Details: Toxic Exam Limitations: altered mental status Nutritional Appearance: morbidly obese HEENT head/scalp atraumatic HEENT Narrative: Mallampati 4, dentition is fair, no thrush present but mucous membranes appear dry. IJ distended on the right with Trendelenburg positioning Head and Scalp: normocephalic Eyes PERRL, EOMs intact bilaterally and conjunctivae normal Eyes Narrative: No scleral icterus Neck no lymphadenopathy, supple and no JVD Neck Narrative: Neck is short and thick Chest inspection of chest normal Chest: symmetrical chest wall rise; Negative for crepitus Resp normal respiratory effort, no retractions, no use of accessory muscles and clear to auscultation bilaterally Resp Narrative: Poor effort Auscultation: diminished lung sounds; Negative for crackles, rales, rhonchi or wheezes Cardio regular rate, regular rhythm, S1 normal heart sound, S2 normal heart sound, no gallops and no clicks GI normal to inspection, nondistended, normoactive bowel sounds, soft to palpation, non-tender and non-distended GI Narrative: Large pannus Extremity no clubbing, cyanosis or edema Peripheral Pulses: Yes radial pulses present right 1+ and diminished Skin no rashes or lesions noted, no wounds, skin turgor normal, no jaundice, no petechiae and no mottling Neuro Neuro Narrative: Some spontaneous movements. Not following commands. Opens eyes to voice. Psych Psych Narrative: Unable to assess given mental status Lab / Micro Data Result Diagrams: 04/10/21 05:39 04/10/21 05:39 Labs: Laboratory Results - last 24 hr 04/09/21 15:50: WBC 8.4, RBC 4.76, Hgb 14.9, Hct 44.7, MCV 93.9, MCH 31.3, MCHC 33.3, RDW Std Deviation 43.8, RDW Coeff of Geno 12.7, Plt Count 197, MPV 10.0, Immature Gran % (Auto) 0.600, Neut % (Auto) 89.3 H, Lymph % (Auto) 7.6 L, Dickey % (Auto) 1.4, Eos % (Auto) 0.7, Baso % (Auto) 0.4, Absolute Neuts (auto) 7.5, Absolute Lymphs (auto) 0.64 L, Nucleated RBC % 0 04/09/21 15:50: Sodium 138, Potassium 4.0, Chloride 104, Carbon Dioxide 28.0, Anion Gap 6, BUN 29 H, Creatinine 1.44 H, Estim Creat Clear Calc 39.90, Est GFR (MDRD) Af Amer 48 L, Est GFR (MDRD) Non-Af 39 L, BUN/Creatinine Ratio 20.1 H, Glucose 126 H, Calcium 9.4, Total Bilirubin 0.80, AST 17, ALT 26, Alkaline Phosphatase 86, Total Protein 7.7, Albumin 3.3, Globulin 4.4 H, Albumin/Globulin Ratio 0.8 L 04/09/21 16:20: Urine Color Yellow, Urine Clarity Cloudy, Urine pH 5.0, Ur Specific [place] 1.020, Urine Protein 15 H, Urine Glucose (UA) Normal, Urine Ketones 5 H, Urine Occult Blood 150 H, Urine Nitrite Positive H, Urine Bilirubin Negative, Urine Urobilinogen Normal, Ur Leukocyte Esterase 500 H, Urine RBC 5-10 SEEN, Urine WBC 25-50 SEEN, Ur Squamous Epith Cells 10-25 SEEN, Urine Bacteria 3+, Urine Mucus 0 SEEN 04/10/21 05:39: WBC 9.3, RBC 4.53, Hgb 13.6, Hct 41.7, MCV 92.1, MCH 30.0, MCHC 32.6, RDW Std Deviation 45.3 H, RDW Coeff of Geno 13.4, Plt Count 164, MPV 10.4, Immature Gran % (Auto) 1.100 H, Neut % (Auto) 86.7 H, Lymph % (Auto) 6.4 L, Dickey % (Auto) 5.6, Eos % (Auto) 0.0, Baso % (Auto) 0.2, Absolute Neuts (auto) 8.0 H, Absolute Lymphs (auto) 0.59 L, Nucleated RBC % 0, Differential Comment SCANNED 04/10/21 05:39: Sodium 135 L, Potassium 4.9, Chloride 105, Carbon Dioxide 25.0, Anion Gap 5, BUN 36 H, Creatinine 2.12 H, Estim Creat Clear Calc 28.11, Est GFR (MDRD) Af Amer 30 L, Est GFR (MDRD) Non-Af 25 L, BUN/Creatinine Ratio 17.0, Glucose 117 H, Calcium 8.7 04/10/21 05:39: TSH 1.33 04/10/21 10:15: Lactic Acid 2.7 H* Micro: Microbiology 04/09/21 17:40 Mucosa - Nasopharyngeal Influenza Types A,B Direct FA (ZACK) - Final 04/09/21 17:40 Nasal Secretion SARS-CoV-2 Antigen (Rapid) - Final ABG Data ABG results: ABG 04/10/21 09:59 Specimen Type ART Sample Site R Radial pH 7.34 L Bicarbonate Actual 22.2 Total CO2 23 Base Excess -4 L O2 Saturation 95 O2 % 35 ABG pCO2 40.8 ABG pO2 80 Eloy Test Positive O2 Delivery Device BiPAP POC PEEP 10 Radiology Impression Abdomen/Pelvis CT 04/09/21 15:39 IMPRESSION: 8 mm right renal pelvis stone associated with what appears to be clot and gas within the right intrarenal collecting system. Individualized dose optimization techniques were used for this CT. at 1638 Reported and signed by: Dale Bonds MD Electronically Signed: Dale Bonds MD at 16:36 EST , Central Venous Catheter Indication: Hypotension Consent was obtained from: A time-out was completed verifying correct patient, procedure, site, pos itioning, and special equipment if applicable. The patient was placed in a dependent position appropriate for central line placement based on the vein to be cannulated. The patient's right IJ was prepped and draped in a sterile fashion. 1% lidocaine was used to anesthetize the surrounding skin area. A triple-lumen catheter was introduced into the right IJ using the Seldinger technique and under ultrasound guidance. The catheter was threaded smoothly over the guidewire and appropriate blood return was obtained. Each lumen of the catheter was evacuated of air and flushed with sterile saline. The catheter was then sutured in place to the skin and a sterile dressing applied. Chest x-ray to confirm appropriate positioning is pending. ULTRASOUND GUIDANCE STATEMENT (Vascular Access): I performed ultrasound image acquisition and interpretation for needle placement during the procedure. The vessel was identified and found to be free of thrombosis by compression technique. A safe point of entry was marked at the skin in an angle for axis was determined. The needle was guided by obtaining free-flowing fluid and by real-time visualization. Charges/Coding Procedures Hospitalists Procedures: 62658 Critial Care 1st Hr Multi Select Codes Hospitalists' Procedures Procedures: 42818 Critial Care Addl 30 Min (X3, 140 minutes of total critical care time)
--- NOTE | 2021-04-10 12:29 | PCM.OPRPT ---
Report of Operation Date of Procedure: 04/10/21 Pre-Operative Diagnosis: Right pyelonephritis kidney stones Post-Operative Diagnosis: Same Surgery/Procedure Performed:: Cystoscopy, right retrograde pyelogram right stent placement interpretation fluoroscopic images Description of Surgical Findings:: This is a 61-year-old female presented with a kidney stone last night to the emergency room she was admitted to the floor she then became septic this morning the fevers and chills dropped her blood pressures was transferred to the ICU to stabilize with, now take her to the operating room for placement of a stent in the right side to drain the kidney since she has obstruction of the right kidney and an infection with pyelonephritis. She was taken back to the operating room at the smooth induction of a MAC local she was placed in dorsolithotomy position. Went into the bladder with a 21 Stateless rigid cystourethroscope she had a lot of debris in the bladder I then cannulated the right ureteral orifice with a Pollick catheter and a Glidewire performed a retrograde pyelogram we could see the contrast going up the kidney and dilated hydronephrotic right kidney I then advanced the Pollack catheter up into the kidney coiled the Glidewire in the kidney and over the wire I placed a stent 6 Stateless by 26 cm stent pulled the wire the stent coiled in the kidney bladder good position we had purulent urine coming from the stent on the right side I then placed a Jackson catheter in the bladder patient's anesthetic was reversed and is taken back to the ICU in stable condition. Surgeon: maxine Type of Anesthesia: General Drains: stent right Admit VTE Documentation VTE Present on Admission: No VTE Mechan Device Prophylaxis: SCD's VTE Pharm Prophylaxis ordered?: No
--- NOTE | 2021-04-10 13:02 | PCM.RX.CS ---
Consult Pharmacy has been consulted to manage selected antiobiotic: Vancomycin Type of Consult: New start Suspected Infection: Sepsis Labs: Sodium 135 mmol/L (136-145) L 04/10/21 05:39 Potassium 4.9 mmol/L (3.5-5.1) 04/10/21 05:39 Chloride 105 mmol/L (98-107) 04/10/21 05:39 Carbon Dioxide 25.0 mmol/L (21.0-32.0) 04/10/21 05:39 Anion Gap 5 (5-15) 04/10/21 05:39 BUN 36 mg/dL (7-18) H 04/10/21 05:39 Creatinine 2.12 mg/dL (0.55-1.02) H 04/10/21 05:39 Est GFR (MDRD) Af Amer 30 mL/min (>60) L 04/10/21 05:39 Est GFR (MDRD) Non-Af 25 mL/min (>60) L 04/10/21 05:39 BUN/Creatinine Ratio 17.0 RATIO (10-20) 04/10/21 05:39 Glucose 117 mg/dL (74-106) H 04/10/21 05:39 Microbiology: Microbiology 04/09/21 16:20 Urine, Clean Catch Urine Culture - Preliminary Presumptive E. coli 04/09/21 17:40 Mucosa - Nasopharyngeal Influenza Types A,B Direct FA (ZACK) - Final 04/09/21 17:40 Nasal Secretion SARS-CoV-2 Antigen (Rapid) - Final Goal Trough: 15-20 mcg/mL Pharmacy Plan for Drug Dosing: NEW START IV VANCOMYCIN Consulting Physician: Dr. Vanessa Barth Indication: Sepsis/ UTI Goal Trough: 15-20 SrCr: 2.12 CrCl: 43 mL/min (using AdjBW 99.2kg) Comments: Initial dose 2g IV x1 ordered and administered 04/10/21 @1150 Vancomcyin Dose: 1000mg IV Q12hr to start 04/11/21 @0000 Pending Level: 04/11/21 @2330 prior to 4th total dose of vancomycin per protocol Pharmacy Service will continue to monitor and adjust dosing as required.
[2021-04-10] MEDS: fentaNYL 100 MCG/2 ML Ampul 25 MCG IV (13:08)
[2021-04-10 14:22] LABS: Reflex Lactate? Y
--- NOTE | 2021-04-10 14:50 | CASEMGMT ---
Addendum entered by Daniel Rao 04/11/21 10:41: Pt made aware [facility] able to accept her w/SOC slated for Wednesday. Pt voices appreciation and agreeable to this SOC date. Addendum entered by Daniel Rao 04/11/21 10:39: 04/11/21: 1600: Referral has been made w/[facility]. Vilma aware anticipate discharge in the next couple of days. She states they are able to accept pt w/SOC slated for Wednesday. Original Note: RN CM PORTER MARINA CM to room to meet with patient for initial transition planning/care coordination assessment. RN CM introduced self and role at [facility]. Pt voices understanding and consents to assessment at this time. Pt resting in bed in no distress at this time. SisterIqra, @ bedside. Pt is A/O at this time and answers all questions appropriately. Care providers, pharmacy, and demographics verified/updated at this time. PCP: Dr Reyes Preferred Pharmacy: [facility] Insurance: [employer] Prescription Benefit: Yes Living Will/HPOA: Pt does not currently have LW/HCPOA and would like to complete. Will notify SW LNOK: SisterIqra Living Arrangements: Lives alone in one-story apt w/no steps to enter. Pt states it has been difficult to care for self such as bathing and dressing. She has CM through [facility] but does not remember her name. She states she has been approved for aides but d/t staffing there are none available at this time. Pt's sister, Iqra, lives in [place], is supportive, and assists pt when available, but she does work as a business editor and is not always available. Pt states CM is working on getting home delivered meals. She states she often does on-line orders through [employer] w/home delivery. Transportation: Pt states drives self and states no transportation concerns at this time. DME: States has the following DME: shower chair, cane, walker (uses for community distances). States tried using BIPAP/CPAP in the past but was unable to tolerate it. Pt states [facility] working on getting grab bars and hand-held shower installed. Pt states [facility] offered medical alert button but she has declined it and does not feel she needs it at this time. RN CM encouraged the medical alert button and sister, Iqra, also states feels it would be a good idea. Pt states she will think about it. Pt states no need for further DME at this time. HHC/SNF: No hx of either. Pt states she would like HHC. Pt was provided with list of HHC providers including quality and resource use data and consistent with the patient's preferred geographic region, medical needs, and insurance network. The pt's preferred provider is [facility]. Pt wishes to return home and states has no concerns with going home at time of discharge. CM to follow for any further discharge planning/needs. Pt voices no further concerns/needs at this time. Advised pt and sister to ask for CM if any further questions/concerns/needs arise. They voice understanding. PLAN: Home w/HHC: SN, PT/OT, and aide. PT/OT evals pending Ion HARRINGTON RN, CM
[2021-04-10 16:07] LABS: Lactic Acid 2.6 mmol/L (0.4-1.9)
[2021-04-10 17:16] LABS: M R Staph aureus DNA By PCR Negative (Negative); Probe Check PASS; Specimen Processing Control PASS
[2021-04-10] MEDS: Enoxaparin 40 MG/0.4 ML Syringe SC (21:33)
[2021-04-10] MEDS: Citalopram 20 MG Tablet PO (21:46)
[2021-04-10] MEDS: Gabapentin 400 MG Capsule PO (21:46)
[2021-04-10] MEDS: Vancomycin IV 1,000 MG/200 ML BAG 200 MG IV (23:29)
[2021-04-11] VITALS (21 sets, daily range): BP systolic 89–147; BP diastolic 54–89; PULSE 74–87; RESP 12–23; TEMP 36.7–37.3; O2SAT 85–99
[2021-04-11] MEDS: Acetaminophen 325 MG Tablet 650 MG PO ×3 (03:20→18:33)
[2021-04-11 03:43] LABS: Absolute Lymphocyte Count 2.13 X10^3/uL (0.83-4.51); Absolute Neutrophil Count 14.7 X10^3/uL (2.0-7.7); Basophil# 0.06 X10^3/uL; Basophil% 0.3 % (0-1); Eosinophil# 0.01 X10^3/uL; Eosinophils% 0.1 % (0-5); Hematocrit 37.1 % (37-47); Lymphocyte # 2.13 X10^3/ul (0.83-4.51); Lymphocyte % 11.7 % (19-41); Mean Corp Hgb Conc 32.3 g/dL (32-36); Mean Corpuscular Hgb 31.3 pg (27.0-32.0); Mean Corpuscular Volume 96.6 fL (81-99); Monocyte# 0.85 X10^3/uL; Monocyte% 4.7 % (0-10); NRBC Flagged by Analyzer 0 % (0-5); Neutrophil # 14.69 X10^3/uL (2.7-7.7); Neutrophil % 80.8 % (47-70); POSITIVE MORPHOLOGY YES; Platelet Count 109 K/mm3 (150-450); RBC Distribution Width SD 49.3 fl (35.1-43.9); Red Blood Count 3.84 M/mm3 (4.2-5.4); White Blood Count 18.2 K/mm3 (4.4-11.0)
[2021-04-11 03:50] LABS: Differential Indicated SCAN CRITERIA MET
[2021-04-11 04:06] LABS: ALB/GLOB Ratio 0.6 RATIO (0.9-2.4); AST(SGOT) 62 U/L (15-37); Alanine Aminotransfer ALT/SGPT 61 U/L (13-56); Albumin, Serum 2.3 g/dL (3.2-5.0); Alkaline Phosphatase 66 U/L (45-117); Anion Gap 4 (5-15); BUN 41 mg/dL (7-18); BUN/Creat Ratio 21.2 RATIO (10-20); Calcium,Total 7.5 mg/dL (8.5-10.1); Chloride 109 mmol/L (98-107); Creatinine, Serum 1.93 mg/dL (0.55-1.02); EST Glomerular Filtration Rate 28 mL/min (>60); Est Glom Filt Rate - Afr Amer 34 mL/min (>60); Estimated Creatinine Clearance 30.88 ml/min; Glucose 100 mg/dL (74-106); Magnesium 1.7 mg/dL (1.6-2.6); Phosphorus 3.7 mg/dL (2.5-4.9); Potassium 4.8 mmol/L (3.5-5.1); Protein, Total 6.3 g/dL (6.4-8.2); Sodium Level 137 mmol/L (136-145)
[2021-04-11 04:11] LABS: Differential Comment SCANNED
--- NOTE | 2021-04-11 05:56 | PN.CC_ITS ---
Assessment & Plan Assessment/Plan (1) Septic shock: (2) Pyelonephritis: (3) Kidney stones: (4) Metabolic encephalopathy: (5) MINERVA (acute kidney injury): (6) Lactic acidosis: (7) Acute hypotension: (8) Acute respiratory failure with hypoxia: PLAN: RECOMMENDATIONS: 1. Await cultures and narrow antibiotics 2. No further fluid boluses. Challenge with Lasix 3. Await urology plan for definitive stone treatment 4. Okay to change BiPAP to with sleep when mentation improves 5. Okay to reinitiate baseline medications in a stepwise fashion 6. Okay to leave the intensive care unit from my perspective 7. We will sign off from a critical care perspective. Please call with any issues IMPRESSIONS: 1. E. coli septic shock secondary to pyelonephritis secondary to obstructing renal stone Patient with dilated collecting system on the right with an associated 8 mm stone. Patient urgently to the OR yesterday with stent placement. Blood cultures and urine cultures are pending, but preliminary results suggest E. coli. Patient received significant fluid yesterday and is over 7 L positive. 2. Acute kidney injury Clinical suspicion for post renal and prerenal etiology. Patient with obstructing stone on the right along with decreased blood pressures. Baseline creatinine appears to be around 1. Avoid nephrotoxic medications. No indication for renal replacement therapy at this time. We will have to watch electrolytes closely for post ATN diuresis. 3. Acute hypoxic respiratory failure/metabolic encephalopathy Resolved. Improving. Clinical suspicion for hypoxia secondary to upper airway obstruction associated with metabolic encephalopathy. Will use BiPAP for now, but anticipate that this can be transitioned to nocturnal use only once problem 1 and 2 are addressed. Monitor for signs and symptoms of pneumonia. Hold on bronchodilators for now. ABG showed adequate oxygenation and ventilation with BiPAP therapy. 4. Morbid obesity/hypothyroidism/neuropathy/depression/reported FREEMAN Complicates care, management, recovery and prognosis. Likely okay to reinitiate baseline medications. Did suggest patient comply with FREEMAN therapy as this will limit her chance at complications Subjective Subjective Patient did well overnight. No acute issues were reported. Patient did have difficulty tolerating BiPAP, so only used it for short period of time. Patient denies any pain this morning. Blood pressures have stabilized. No additional fluid boluses have been required. Objective Data Objective Data Vital Signs: Vital Signs Temp Pulse Resp BP Pulse Ox 36.9 C 77 14 108/66 97 04/11/21 05:00 04/11/21 05:00 04/11/21 05:00 04/11/21 05:00 04/11/21 05:00 Oxygen Flow Rate (L/min) 2 Oxygen Delivery Method Nasal Cannula Weight: 152.7 kg Body Mass Index (BMI) 51.0 Intake & Output: Intake and Output for Last 24 Hours 04/09/21 04/10/21 04/11/21 23:59 23:59 23:59 Intake Total 1050 / 1410 6490 / 6490 250 / 250 Output Total 675 / 675 300 / 300 Balance 1050 / 1410 5815 / 5815 -50 / -50 Lab / Micro Data Result Diagrams: 04/11/21 03:30 04/11/21 03:30 Labs: Laboratory Results - last 24 hr 04/10/21 05:39: Differential Comment SCANNED 04/10/21 05:39: Sodium 135 L, Potassium 4.9, Chloride 105, Carbon Dioxide 25.0, Anion Gap 5, BUN 36 H, Creatinine 2.12 H, Estim Creat Clear Calc 28.11, Est GFR (MDRD) Af Amer 30 L, Est GFR (MDRD) Non-Af 25 L, BUN/Creatinine Ratio 17.0, Glucose 117 H, Calcium 8.7 04/10/21 05:39: TSH 1.33 04/10/21 10:15: Lactic Acid 2.7 H* 04/10/21 11:15: MRSA (PCR) Negative 04/10/21 14:45: Lactic Acid 2.6 H* 04/11/21 03:30: WBC 18.2 H, RBC 3.84 L, Hgb 12.0, Hct 37.1, MCV 96.6, MCH 31.3, MCHC 32.3, RDW Std Deviation 49.3 H, RDW Coeff of Geno 14.0, Plt Count 109 L, MPV 11.0, Immature Gran % (Auto) 2.400 H, Neut % (Auto) 80.8 H, Lymph % (Auto) 11.7 L, [place] % (Auto) 4.7, Eos % (Auto) 0.1, Baso % (Auto) 0.3, Absolute Neuts (auto) 14.7 H, Absolute Lymphs (auto) 2.13, Nucleated RBC % 0, Differential Comment SCANNED 04/11/21 03:30: Sodium 137, Potassium 4.8, Chloride 109 H, Carbon Dioxide 24.0, Anion Gap 4 L, BUN 41 H, Creatinine 1.93 H, Estim Creat Clear Calc 30.88, Est GFR (MDRD) Af Amer 34 L, Est GFR (MDRD) Non-Af 28 L, BUN/Creatinine Ratio 21.2 H , Glucose 100, Calcium 7.5 L, Phosphorus 3.7, Magnesium 1.7, Total Bilirubin 0.50, AST 62 H, ALT 61 H, Alkaline Phosphatase 66, Total Protein 6.3 L, Albumin 2.3 L, Globulin 4.0, Albumin/Globulin Ratio 0.6 L Micro: Microbiology 04/09/21 16:20 Urine, Clean Catch Urine Culture - Preliminary Presumptive E. coli 04/09/21 17:40 Mucosa - Nasopharyngeal Influenza Types A,B Direct FA (ZACK) - Final 04/09/21 17:40 Nasal Secretion SARS-CoV-2 Antigen (Rapid) - Final ABG Data ABG results: ABG 04/10/21 09:59 Specimen Type ART Sample Site R Radial pH 7.34 L Bicarbonate Actual 22.2 Total CO2 23 Base Excess -4 L O2 Saturation 95 O2 % 35 ABG pCO2 40.8 ABG pO2 80 Eloy Test Positive O2 Delivery Device BiPAP POC PEEP 10 Radiography Diagnostic Testing: Radiology Impression Chest X-Ray 04/10/21 11:20 IMPRESSION: The tip of the right internal jugular venous catheter is at the junction of the right brachiocephalic vein and superior vena cava. There is no evidence of pneumothorax. Electronically Signed: Kevan Fernandes MD at 12:06 EST , Physical Exam Const alert, oriented x3 and no apparent distress Constitutional Narrative: On nasal cannula Nutritional Appearance: morbidly obese HEENT head/scalp atraumatic HEENT Narrative: Mallampati 4, dentition is fair. Mucous membranes are moist and intact Head and Scalp: normocephalic Eyes PERRL, EOMs intact bilaterally and conjunctivae normal Eyes Narrative: No scleral icterus Neck no lymphadenopathy, supple and no JVD Neck Narrative: Neck is short and thick Chest inspection of chest normal Chest: symmetrical chest wall rise; Negative for crepitus Resp normal respiratory effort, no retractions, no use of accessory muscles and clear to auscultation bilaterally Auscultation: Negative for crackles, rales, rhonchi or wheezes Cardio regular rate, regular rhythm, S1 normal heart sound, S2 normal heart sound, no gallops and no clicks GI normal to inspection, nondistended, normoactive bowel sounds, soft to palpation, non-tender and non-distended GI Narrative: Large pannus Extremity General Extremity: edema; Negative for clubbing or cyanosis Peripheral Pulses: Yes radial pulses present right 1+ and diminished Skin no rashes or lesions noted, no wounds, skin turgor normal, no jaundice, no petechiae and no mottling Neuro Neuro Narrative: Some spontaneous movements. Not following commands. Opens eyes to voice. Psych Psych Narrative: Unable to assess given mental status Charges/Coding Visit Charges Inpatient E&M: 53420 Subs Hosp L2
[2021-04-11] MEDS: Furosemide 40 MG Tablet PO (08:58)
[2021-04-11] MEDS: Enoxaparin 40 MG/0.4 ML Syringe SC ×2 (09:15→20:42)
--- NOTE | 2021-04-11 10:34 | PN.HOSP_ITS ---
Subjective Subjective Patient states he is doing much better today. She is anxious to get out of bed. She complains of feeling a little bit puffy as far some swelling in her hands and legs. Her pressures have been stable and she never required Levophed. She has no current significant complaints. Objective Data Objective Data Vital Signs: Vital Signs Temp Pulse Resp BP Pulse Ox 98.1 F 85 23 H 110/74 95 04/11/21 08:00 04/11/21 10:00 04/11/21 10:00 04/11/21 10:00 04/11/21 10:00 Oxygen Flow Rate (L/min) 2 Oxygen Delivery Method Nasal Cannula Weight: 159.7 kg Body Mass Index (BMI) 51.0 Intake & Output: Intake and Output for Last 24 Hours 04/09/21 04/10/21 04/11/21 23:59 23:59 23:59 Intake Total 1050 / 1410 6490 / 6490 300 / 300 Output Total 675 / 675 300 / 300 Balance 1050 / 1410 5815 / 5815 0 / 0 Lab / Micro Data Result Diagrams: 04/11/21 03:30 04/11/21 03:30 Labs: Laboratory Results - last 24 hr 04/10/21 10:15: Lactic Acid 2.7 H* 04/10/21 11:15: MRSA (PCR) Negative 04/10/21 14:45: Lactic Acid 2.6 H* 04/11/21 03:30: WBC 18.2 H, RBC 3.84 L, Hgb 12.0, Hct 37.1, MCV 96.6, MCH 31.3, MCHC 32.3, RDW Std Deviation 49.3 H, RDW Coeff of Geno 14.0, Plt Count 109 L, MPV 11.0, Immature Gran % (Auto) 2.400 H, Neut % (Auto) 80.8 H, Lymph % (Auto) 11.7 L, [place] % (Auto) 4.7, Eos % (Auto) 0.1, Baso % (Auto) 0.3, Absolute Neuts (auto) 14.7 H, Absolute Lymphs (auto) 2.13, Nucleated RBC % 0, Differential Comment SCA NNED 04/11/21 03:30: Sodium 137, Potassium 4.8, Chloride 109 H, Carbon Dioxide 24.0, Anion Gap 4 L, BUN 41 H, Creatinine 1.93 H, Estim Creat Clear Calc 30.88, Est GFR (MDRD) Af Amer 34 L, Est GFR (MDRD) Non-Af 28 L, BUN/Creatinine Ratio 21.2 H , Glucose 100, Calcium 7.5 L, Phosphorus 3.7, Magnesium 1.7, Total Bilirubin 0.50, AST 62 H, ALT 61 H, Alkaline Phosphatase 66, Total Protein 6.3 L, Albumin 2.3 L, Globulin 4.0, Albumin/Globulin Ratio 0.6 L Micro: Microbiology 04/09/21 16:20 Urine, Clean Catch Urine Culture - Final Presumptive E. coli 04/09/21 17:40 Mucosa - Nasopharyngeal Influenza Types A,B Direct FA (ZACK) - Final 04/09/21 17:40 Nasal Secretion SARS-CoV-2 Antigen (Rapid) - Final Radiography Diagnostic Testing: Radiology Impression Chest X-Ray 04/10/21 11:20 IMPRESSION: The tip of the right internal jugular venous catheter is at the junction of the right brachiocephalic vein and superior vena cava. There is no evidence of pneumothorax. Electronically Signed: Kevan Fernandes MD at 12:06 EST , Physical Exam Const alert, oriented x3 and no apparent distress Constitutional Narrative: Morbidly obese white female sitting up in bed, appears comfortable, nontoxic appearing at this time, watching television and nurses at bedside General Appearance: cooperative Exam Limitations: no limitations Nutritional Appearance: morbidly obese HEENT normocephalic, head/scalp atraumatic and moist oral mucous membranes HEENT Narrative: Mallampati is 3-4, no thrush, dentition is good Head and Scalp: normocephalic Eyes Eyes Narrative: No scleral icterus Resp normal respiratory effort, no retractions and no use of accessory muscles Resp Narrative: Few crackles at lung bases bilaterally but otherwise clear Auscultation: crackles; Negative for rales, rhonchi or wheezes Cardio regular rate, regular rhythm, S1 normal heart sound, S2 normal heart sound, no murmurs, no rub, no gallops, no clicks and no JVD GI normal to inspection, nondistended, normoactive bowel sounds, soft to palpation, non-tender and non-distended; Negative for hepatosplenomegaly GI Narrative: Large pannus Bladder / Kidney Exam: no CVA tenderness Extremity Extremity Narrative: Trace edema bilateral upper and lower extremities likely from fluid resuscitation, no cyanosis or clubbing Peripheral Pulses: Yes pulses 2+ throughout Neuro oriented x3, moves all extremities, no focal motor deficits and no sensory deficits noted Sensorium / Orientation: awake and alert Psych affect normal Psych Narrative: Extremely pleasant Appearance: appropriate Assessment & Plan Assessment/Plan (1) Pyelonephritis: (2) Kidney stones: (3) Metabolic encephalopathy: (4) MINERVA (acute kidney injury): (5) Lactic acidosis: (6) Acute hypotension: (7) Acute respiratory failure with hypoxia: (8) Sepsis: PLAN: Sepsis secondary to acute pyelonephritis and E. coli UTI with suspected bacteremia -Patient became acutely hypotensive while on the medical floor and therefore has been transferred to the ICU -Suspect gram-negative sepsis with pyelonephritis -Urine culture has resulted for presumptive E. coli -Cultures remain pending although I suspect these will be positive based on presentation -Patient met sepsis criteria with lactic acid elevation, acute kidney injury, temperature of 102.8, acute mental status change, hypoxia -Patient was treated with 30 cc/kg IV fluids and responded to this without the need of vasopressors -With presumptive E. coli will discontinue vancomycin and continue Zosyn -Stent placed yesterday for urethral obstruction -Okay to transfer out of ICU and is stable for general medical floor Pyelonephritis -8 mm right renal pelvis stone noted on CT at admission with what appeared to be a clot and gas in the right intrarenal collecting system -Stent placement done on 04/11/2021 -Continue Zosyn--> narrowed to oral antibiotics at discharge if able but would recommend extended course given pyelonephritis and stent placement during hospitalization--> anticipate 14 days of antibiotics total -Presumptive E. coli Lactic acidosis -Resolved MINERVA -Patient appears to be having some post ATN diuresis -Serum creatinine is trending down however not at baseline at this time -Serum creatinine appears to be between 0.9 and 1.1 -IV fluids discontinued and Lasix given secondary to edema -Anticipate that renal function should continue to improve -Avoid nephrotoxins as able Metabolic encephalopathy -Resolved Acute hypoxic respiratory failure -Resolved Hypothyroidism -Restart levothyroxine Neuropathy -Restart home gabapentin Depression -Restart home citalopram DVT prophylaxis -Lovenox 40 twice daily -SCDs CODE STATUS -DNR CCA with no intubation okay for central lines, noninvasive relation, pressors Charges/Coding Visit Charges Inpatient E&M: 25820 Subs Hosp L2
--- NOTE | 2021-04-11 10:55 | CASEMGMT ---
Addendum entered by Joanne Nixon 04/11/21 13:26: SW spoke with Nenita at [facility]. Pt was just started with services and youth care worker is An Rahman [phone]. No services have been set up yet but pt is being assessed for home health aids. [facility] to be notified when pt discharges. TREVON Baker Original Note: Social Work SW received referral for advance directives. SW met with pt and introduced self and role of SW. SW assisted pt in completing Living Will and HCPOA naming her sister Iqra Márquez. Copy placed on pt chart and original given to pt. Pt is currently active with [facility] but does not know name of comp field case manager. VM left with [facility] to obtain Community Dietitian and services provided. TREVON Baker
[2021-04-11] MEDS: Nystatin Powder 15gm Bottle 1 APPLIC TOPICAL ×2 (13:25→20:43)
[2021-04-11] MEDS: Citalopram 20 MG Tablet PO (20:42)
[2021-04-11] MEDS: Gabapentin 400 MG Capsule PO (20:42)
[2021-04-12] MEDS: Acetaminophen 325 MG Tablet 650 MG PO ×2 (00:52→06:29)
[2021-04-12 02:00] VITALS: BP 124/78; PULSE 74; RESP 16; TEMP 36.7; O2SAT 94
--- NOTE | 2021-04-12 03:58 | CPS ---
RN placed pt on bipap. When RT arrived to check pt, the pt had already taken of bipap and stated that she cannot wear it anymore d/t intolerance.
[2021-04-12 05:32] LABS: Hematocrit 36.1 % (37-47); Hemoglobin 11.7 g/dL (12.0-15.0); Mean Corp Hgb Conc 32.4 g/dL (32-36); Mean Corpuscular Hgb 30.5 pg (27.0-32.0); Mean Corpuscular Volume 94.3 fL (81-99); Mean Platelet Vol. 11.4 fl (6.2-12.0); POSITIVE COUNT YES; POSITIVE MORPHOLOGY YES; Platelet Count 111 K/mm3 (150-450); RBC Distribution Width CV 13.9 % (11.6-14.6); RBC Distribution Width SD 48.1 fl (35.1-43.9); Red Blood Count 3.83 M/mm3 (4.2-5.4); White Blood Count 14.5 K/mm3 (4.4-11.0)
[2021-04-12 05:42] LABS: Differential Indicated MANUAL DIFF
[2021-04-12 05:57] LABS: Anion Gap 4 (5-15); BUN 33 mg/dL (7-18); BUN/Creat Ratio 25.4 RATIO (10-20); Calcium,Total 8.4 mg/dL (8.5-10.1); Chloride 108 mmol/L (98-107); EST Glomerular Filtration Rate 44 mL/min (>60); Est Glom Filt Rate - Afr Amer 54 mL/min (>60); Estimated Creatinine Clearance 45.84 ml/min; Glucose 93 mg/dL (74-106); Potassium 4.3 mmol/L (3.5-5.1); Sodium Level 139 mmol/L (136-145)
[2021-04-12] MEDS: Levothyroxine 88 MCG Tablet PO (06:28)
[2021-04-12] MEDS: Nystatin Powder 15gm Bottle 1 APPLIC TOPICAL (06:28)
[2021-04-12 06:52] LABS: Lymphocyte 17 % (19-41); Monocyte 2 % (0-10); Myelocyte 1 % (0-0); Neutrophil-Band 3 % (0-5); Neutrophil-Segmented 77 % (47-70); Platelet Estimate SLT DEC (ADEQ); Red Cell Morphology NORM C+C NORMAL (NORM C&C); Total Cells Counted 100 (MANUAL DIFF)
[2021-04-12 06:53] LABS: Absolute Lymphocyte Count 2.46 X10^3/uL (0.83-4.51); Absolute Neutrophil Count 11.6 X10^3/uL (2.0-7.7); Lymphocyte # 2.46 X10^3/ul (0.83-4.51); Neutrophil # 11.58 X10^3/uL (2.7-7.7)
[2021-04-12 07:53] VITALS: BP 137/91; PULSE 74; RESP 18; TEMP 36.3; O2SAT 92
[2021-04-12] MEDS: Enoxaparin 40 MG/0.4 ML Syringe SC (09:50)
[2021-04-12] MEDS: Loratadine 10 MG Tablet PO (09:51)
--- NOTE | 2021-04-12 11:03 | DCINST_ITS ---
Discharge Instructions Diet Discharge Diet: No restrictions Activity Discharge Activity: Return to Normal Activity Dressing / Incision Call your doctor if your incision/area has: Continuous Slow Oozing Call your doctor if you observe: Fever of 101 or Higher and Inability to urinate Follow Up Care Test Results: Test results from this visit will be discussed in further detail at your follow-up appointment, if applicable. Discharge Plan Admission Admit Date/Time: 04/09/21 20:25 Primary Reason for Your Visit: septic shock Attending Provider: Perez Samayoa Primary Care Provider: Deedee Reyes Consulting Providers: Jose G Trent ; Michael Knapp ; Corry Olivera [employer]ICAL MIXER ; Lj Vizcarra Discharge Orders/Prescriptions Prescriptions: New levofloxacin 750 mg tablet 750 mg PO DAILY Qty: 7 RF: 0 Continued citalopram 20 MG tablet 20 mg PO QHS RF: 0 meloxicam 7.5 mg Tablet 15 mg PO QHS RF: 0 loratadine 10 mg tablet 10 mg PO DAILY RF: 0 gabapentin 400 mg capsule 400 mg PO QHS RF: 0 acetaminophen 500 mg tablet 1,000 mg PO QHS RF: 0 levothyroxine 88 mcg tablet 88 mcg PO DAILY RF: 0 ergocalciferol (vitamin D2) 1,250 mcg (50,000 unit) capsule 1,250 mcg PO CABRERA RF: 0 Referrals / Follow Up: Deedee Reyes MD [Primary Care Provider] - Within 2 Weeks Lj Vizcarra MD [STAFF PHYSICIAN] - Within 2 Weeks Disposition Disposition (needs filled in before D/C Order can be placed): Home, Self Care
--- NOTE | 2021-04-12 11:24 | DS.PCM_ITS ---
Providers Date of Admission: 04/09/21 Primary Care Physician: Dr. Deedee Reyes MD Consultations 04/09/21 20:40 Consult: Urology Routine Consulting Provider: Lj Vizcarra Reason for Consult: Nephrolithiasis EMERGENT Consult: No Notified: Yes Date Notified: 04/09/21 Time Notified: 20:27 Method of Notification: Verbal 04/10/21 09:15 Consult: Ostrich Farmer / Pulmonary Medicine Routine Consulting Provider: Pulmonary Medicine jose [place] Reason for Consult: felix EMERGENT Consult: No Notified: Yes Date Notified: 04/10/21 Time Notified: 09:18 Method of Notification: Verbal Reason For Visit: NEPHROLITHIASIS WITH PYELONEPHRITIS Diagnosis Discharge Diagnosis (1) Pyelonephritis: Status: Acute Code(s): N12 - Tubulo-interstitial nephritis, not specified as acute or chronic (2) Kidney stones: Status: Acute Code(s): N20.0 - Calculus of kidney (3) Metabolic encephalopathy: Status: Acute Code(s): G93.41 - Metabolic encephalopathy (4) MINERVA (acute kidney injury): Status: Acute Code(s): N17.9 - Acute kidney failure, unspecified (5) Lactic acidosis: Status: Acute Code(s): E87.2 - Acidosis (6) Acute hypotension: Status: Acute Code(s): I95.9 - Hypotension, unspecified (7) Acute respiratory failure with hypoxia: Status: Acute Code(s): J96.01 - Acute respiratory failure with hypoxia (8) Sepsis: Status: Acute Code(s): A41.9 - Sepsis, unspecified organism (9) Septic shock: Status: Acute Code(s): A41.9 - Sepsis, unspecified organism; R65.21 - Severe sepsis with septic shock Medications at Discharge Home Medications citalopram 20 mg PO QHS 06/03/16 meloxicam 15 mg PO QHS 06/09/20 acetaminophen 1,000 mg PO QHS 04/09/21 ergocalciferol (vitamin D2) 1,250 mcg PO CABRERA 04/09/21 gabapentin 400 mg PO QHS 04/09/21 levothyroxine 88 mcg PO DAILY 04/09/21 loratadine 10 mg PO DAILY 04/09/21 levofloxacin 750 mg PO DAILY #7 tab 04/12/21 Hospital Course Operations None Procedures - (cystoscopy) Summary of Care Provided Minutes Spent on Discharge: 32 Hospital Course: This 61-year-old female presents with a right flank pain. Patient was found to have a 8mm stone in the right pelvis. Concern for pyelonephritis. Patient then developed septic shock and was admitted to the ICU. Patient was then taken to the operating room on the third for cystoscopy, right retrograde pyelogram with right stent placement. Urine culture came back showing E. coli. Blood cultures were negative. Patient also had acute kidney injury likely postobstructive that has since resolved. Patient be discharged with 7 days of levofloxacin. Patient instructed to follow-up with urology as outpatient for eventual stent removal. Physical Exam Resp normal respiratory effort, no retractions, no use of accessory muscles and clear to auscultation bilaterally Cardio regular rate, regular rhythm, S1 normal heart sound and S2 normal heart sound GI normal to inspection, nondistended, normoactive bowel sounds, soft to palpation and non-tender Weight / BMI Weight Weight: 158.8 kg Body Mass Index (BMI) 51.0 ABG / Lab / Microbiology Data Result Diagrams: 04/12/21 03:41 04/12/21 03:41 Laboratory: Laboratory Results - last 24 hr 04/12/21 03:41: WBC 14.5 H, RBC 3.83 L, Hgb 11.7 L, Hct 36.1 L, MCV 94.3, MCH 30.5, MCHC 32.4, RDW Std Deviation 48.1 H, RDW Coeff of Geno 13.9, Plt Count 111 L, MPV 11.4, Neut % (Auto) Not Reportable, Absolute Neuts (auto) 11.6 H, Absolute Lymphs (auto) 2.46, Total Counted 100, Neutrophils % (Manual) 77 H, Band Neutrophils % 3, Lymphocytes % (Manual) 17 L, Monocytes % (Manual) 2, M yelocytes % 1 H, Diff Path Review June german, Platelet Estimate SLT DEC, RBC Morphology NORM C+C 04/12/21 03:41: Sodium 139, Potassium 4.3, Chloride 108 H, Carbon Dioxide 27.0, Anion Gap 4 L, BUN 33 H, Creatinine 1.30 H, Estim Creat Clear Calc 45.84, Est GFR (MDRD) Af Amer 54 L, Est GFR (MDRD) Non-Af 44 L, BUN/Creatinine Ratio 25.4 H , Glucose 93, Calcium 8.4 L Microbiology: Microbiology 04/09/21 16:20 Urine, Clean Catch Urine Culture - Final Presumptive E. coli 04/09/21 17:40 Mucosa - Nasopharyngeal Influenza Types A,B Direct FA (ZACK) - Final 04/09/21 17:40 Nasal Secretion SARS-CoV-2 Antigen (Rapid) - Final D/C Instructions Discharge Diet: No restrictions Call your doctor if your incision/area has: Continuous Slow Oozing Call your doctor if you observe: Fever of 101 or Higher and Inability to urinate Meaningful Use Info Meaningful Use Diagnoses (Choose all that apply): None applicable Discharge Plan Admission Admit Date/Time: 04/09/21 20:25 Primary Reason for Your Visit: septic shock Attending Provider: Perez Samayoa Primary Care Provider: Deedee Reyes Consulting Providers: Jose G Trent ; Michael Knapp ; Corry Olivera ASSEMBLER [employer]ODUCT ; Lj Vizcarra Discharge Orders/Prescriptions Prescriptions: New levofloxacin 750 mg tablet 750 mg PO DAILY Qty: 7 RF: 0 Continued citalopram 20 MG tablet 20 mg PO QHS RF: 0 meloxicam 7.5 mg Tablet 15 mg PO QHS RF: 0 loratadine 10 mg tablet 10 mg PO DAILY RF: 0 gabapentin 400 mg capsule 400 mg PO QHS RF: 0 acetaminophen 500 mg tablet 1,000 mg PO QHS RF: 0 levothyroxine 88 mcg tablet 88 mcg PO DAILY RF: 0 ergocalciferol (vitamin D2) 1,250 mcg (50,000 unit) capsule 1,250 mcg PO CABRERA RF: 0 Referrals / Follow Up: Deedee Reyes MD [Primary Care Provider] - Within 2 Weeks Lj Vizcarra MD [STAFF PHYSICIAN] - Within 2 Weeks Disposition Disposition (needs filled in before D/C Order can be placed): Home, Self Care Charges/Coding Visit Charges Inpatient E&M: 92794 Disch Hosp
[2021-04-12 14:03] VITALS: BP 150/76; PULSE 79; RESP 18; TEMP 36.3; O2SAT 94
[2021-04-15 10:24] LABS: Pathologist Review Reviewed
== END 2021-04-12 15:44 | disposition home or self-care (01) | DRG 853 ==
LOC: ED 17:42 → PCU 20:29 → ICU 04-10 09:33 → MS3 04-11 17:32
PROVIDERS: Anesthesiology; Internal Medicine; Urology; Admitting Provider Family Medicine; Emergency Provider Emergency Medicine; PCP Internal Medicine
PROC: 0T768DZ Dilation of Right Ureter with Intraluminal Device, Via Natural or Artificial Opening Endoscopic (ICD-10-PCS; CPT 52332; principal; 2021-04-10 11:50)
DX: A41.51 Sepsis due to Escherichia coli [E. coli] (principal); J96.01 Acute respiratory failure with hypoxia; N17.0 Acute kidney failure with tubular necrosis; R65.21 Severe sepsis with septic shock; G93.41 Metabolic encephalopathy; Z68.43 Body mass index [BMI] 50.0-59.9, adult; N10 Acute pyelonephritis; N13.2 Hydronephrosis with renal and ureteral calculous obstruction; I95.9 Hypotension, unspecified; K21.9 Gastro-esophageal reflux disease without esophagitis; E66.01 Morbid (severe) obesity due to excess calories; I10 Essential (primary) hypertension; E03.9 Hypothyroidism, unspecified; G47.33 Obstructive sleep apnea (adult) (pediatric); G62.9 Polyneuropathy, unspecified; F41.9 Anxiety disorder, unspecified; K58.9 Irritable bowel syndrome, unspecified; G43.909 Migraine, unspecified, not intractable, without status migrainosus; F32.A Depression, unspecified; G89.29 Other chronic pain; Z66 Do not resuscitate; Z87.442 Personal history of urinary calculi; Z79.899 Other long term (current) drug therapy; Z23 Encounter for immunization
CPT/HCPCS: 36415; 36600; 71045; 74176; 76000; 80048; 80053; 81001; 82803; 83605; 83735; 84100; 84443; 85025; 87040; 87086; 87088; 87186; 87426; 87641; 87804; 93005; 94002; 94003; 97162; 97166; 99283; G0008; J7030; J7040; 90686; A4216; C1751; C1769; C2617; J2405

== ENCOUNTER 2021-04-25 11:40 | Day surgery (SDC) | payer MEDICARE, MEDICAID, SELFPAY ==
--- NOTE | 2021-04-25 11:55 | RAD_ITS ---
INDICATION: PRE OP EXAMINATION/TECHNIQUE: X-RAY - XR Abdomen 1 View COMPARISON: CT abdomen and pelvis without contrast 04/09/2021 FINDINGS/ RAD/Abdomen Single View IMPRESSION: Support devices: None. There is a right ureteral stent with the proximal pigtail projecting over the expected location of the right renal pelvis. The distal pigtail is in the pelvis likely within the bladder. Normal nonobstructive bowel gas pattern. Cholecystectomy clips in the right upper quadrant. No other abnormal radiopaque foreign bodies. Electronically Signed: Nikolas Dominguez, at 13:21 EDT ,
--- NOTE | 2021-04-25 12:17 | EKG12_ITS ---
Test Reason : PRE OP Blood Pressure : / mmHG Vent. Rate : 070 BPM Atrial Rate : 070 BPM P-R Int : 204 ms QRS Dur : 092 ms QT Int : 434 ms P-R-T Axes : 042 008 120 degrees QTc Int : 468 ms Normal sinus rhythm T wave abnormality, consider anterior ischemia Abnormal ECG When compared with ECG of 10-APR-2021 05:23, Premature ventricular complexes are no longer Present Vent. rate has decreased BY 60 BPM T wave inversion now evident in Anterior leads Confirmed by TAYLOR MEYERS, JOSE LUIS ([id number]), photo editor BRIAN YANG ([id number]) on 04/29/2021 10:45:10 AM Referred By: Lj Vizcarra Confirmed By:JOSE LUIS VAZQUEZ MD
[2021-04-25 12:44] VITALS: BP 135/74; PULSE 65; RESP 16; TEMP 36.2; O2SAT 99; BMI 49.6
[2021-04-25] MEDS: Lactated Ringers 1,000 ML 15 ML IV (12:51)
--- NOTE | 2021-04-25 15:12 | HP.PCM_ITS ---
HPI - General HPI Narrative SANDIE BURRELL, is a 61 F who presents RIGHT ESWL and stent removal [facility]LY [facility], [facility] Medical History (Updated 04/20/21 @ 00:01 by Homero Perez) Ambulates with cane Anxiety Arthritis Back pain Bone spur of foot Chest pain Chronic cough Chronic pain Depression GERD (gastroesophageal reflux disease) Hiatal hernia History of hiatal hernia History of IBS Hypertension Hypothyroid IBS (irritable bowel syndrome) Kidney stones Migraines Non-smoker Obesity FREEMAN (obstructive sleep apnea) Osteoarthritis Post-menopausal Sciatic leg pain Sciatica Shortness of breath on exertion Sleep apnea Sleep apnea Syncope Thyroid disease Vertigo Vertigo Vision loss of left eye Vision loss of right eye Wears glasses Home Medications citalopram 20 mg PO QHS 06/03/16 [History Last Taken 04/08/21] meloxicam 15 mg PO QHS 06/09/20 [History Last Taken 04/08/21] acetaminophen 1,000 mg PO QHS 04/09/21 [History Last Taken 04/08/21] ergocalciferol (vitamin D2) 1,250 mcg PO CABRERA 04/09/21 [History Last Taken Unknown] gabapentin 400 mg PO QHS 04/09/21 [History Last Taken 04/08/21] levothyroxine 88 mcg PO DAILY 04/09/21 [History Last Taken 04/25/21 88 mcg] loratadine 10 mg PO DAILY 04/09/21 [History Last Taken 04/08/21] levofloxacin 750 mg PO DAILY #7 tab 04/12/21 [Rx Last Taken Unknown] Probiotic 10,000 mmu cells PO BID 04/18/21 [History Last Taken Unknown] meclizine 25 mg PO DAILY PRN 04/18/21 [History Last Taken Unknown] ciprofloxacin HCl [Cipro] 500 mg PO BID #20 tab 04/25/21 [Rx Last Taken Unknown] ibuprofen 600 mg PO Q6H PRN #20 tab 04/25/21 [Rx Last Taken Unknown] Allergy/AdvReac Type Severity Reaction Status Date / Time codeine AdvReac Itching Verified 04/25/21 12:52 oxycodone AdvReac Itching Verified 04/25/21 12:52 Family History Father Heart disease Diabetes Mother Cancer Diabetes Surgical History (Updated 04/18/21 @ 09:23 by Krupa Benitez) History of cholecystectomy History of cystoscopy History of lithotripsy Hx of foot surgery Social History Smoking Status: Never smoker alcohol intake: never substance use type: does not use Vital Signs Vital Signs Vital Signs: 04/25/21 12:44 Temperature 97.1 F L Temperature Source Temporal Pulse Rate 65 Respiratory Rate 16 Respiratory Pattern Normal Blood Pressure 135/74 H Blood Pressure Mean 94 Blood Pressure Source Monitor Blood Pressure Position Semi-Fowlers Blood Pressure Location Right Arm Pulse Ox 99 Oxygen Delivery Method Room Air Weight Weight: 148 kg Body Mass Index (BMI) 49.6 Results Lab / Micro Data Micro: Microbiology 04/25/21 12:17 Interface Orders SARS-CoV-2 Antigen (Rapid) - Final Radiology Impression KUB X-Ray 04/25/21 11:55 IMPRESSION: Support devices: None. There is a right ureteral stent with the proximal pigtail projecting over the expected location of the right renal pelvis. The distal pigtail is in the pelvis likely within the bladder. Normal nonobstructive bowel gas pattern. Cholecystectomy clips in the right upper quadrant. No other abnormal radiopaque foreign bodies. Electronically Signed: Nikolas Dominguez, at 13:21 EDT ,
--- NOTE | 2021-04-25 15:13 | DCINST_ITS ---
Discharge Instructions Diet Discharge Diet: No restrictions Activity Discharge Activity: Return to Normal Activity and May Not Drive (while taking narcotic pain medications.) Dressing / Incision Call your doctor if you observe: Fever of 101 or Higher Follow Up Care Please Follow Up With: Lj Vizcarra MD When: Call [phone] for an appointment Test Results: Test results from this visit will be discussed in further detail at your follow-up appointment, if applicable. Discharge Plan Admission Primary Reason for Your Visit: KIDNEY STONE Attending Provider: Lj Vizcarra Primary Care Provider: Deedee Reyes Discharge Orders/Prescriptions Prescriptions: New ciprofloxacin HCl [Cipro] 500 mg tablet 500 mg PO BID Qty: 20 RF: 0 ibuprofen 600 mg tablet 600 mg PO Q6H PRN (Reason: fever or pain) Qty: 20 RF: 0 Continued citalopram 20 MG tablet 20 mg PO QHS RF: 0 meloxicam 7.5 mg Tablet 15 mg PO QHS RF: 0 loratadine 10 mg tablet 10 mg PO DAILY RF: 0 gabapentin 400 mg capsule 400 mg PO QHS RF: 0 acetaminophen 500 mg tablet 1,000 mg PO QHS RF: 0 levothyroxine 88 mcg tablet 88 mcg PO DAILY RF: 0 ergocalciferol (vitamin D2) 1,250 mcg (50,000 unit) capsule 1,250 mcg PO CABRERA RF: 0 levofloxacin 750 mg tablet 750 mg PO DAILY Qty: 7 RF: 0 meclizine 25 mg Tablet 25 mg PO DAILY PRN (Reason: Vertigo) RF: 0 Probiotic 10 billion cell Capsule 10,000 mmu cells PO BID RF: 0 Other Ambulatory Orders: Abdomen Single View (Routine) Timeframe: [id number] Facility: [facility] - Location: Radiology, [facility] Ordered By: Dr. Lj Vizcarra Referrals / Follow Up: Deedee Reyes MD [Primary Care Provider] - Disposition Disposition (needs filled in before D/C Order can be placed): Home, Self Care
--- NOTE | 2021-04-25 15:13 | PCM.OPRPT ---
Report of Operation Date of Procedure: 04/25/21 Pre-Operative Diagnosis: right kidney stones Post-Operative Diagnosis: same Surgery/Procedure Performed:: Right ESWL and cysto stent removal Description of Surgical Findings:: Patient presents to the hospital for treatment of a kidney stone with shockwave lithotripsy. In the preoperative area and x-ray was done to confirm the location of the stone. The x-ray was reviewed and the stone location was reviewed. In the preoperative setting I spoke with the patient regarding the treatment of the stone how the treatment would be conducted and the expectations after surgery. The patient understands there is a risk of bleeding and infection. Also discussed the very rare risk of hematoma or damage to the kidney. We also discussed the risk that the shockwave machine will fail to break the stone adequately and that the patient may need other surgical procedures. We also discussed the possibility that the patient may need a stent after the procedure. After reviewing the procedure with the patient, the patient is signed the consent form all the patient's questions were addressed and was taken back to the operating room for treatment of a kidney stone. Patient was taken back to the operating room, patient was identified by the nursing staff, we identified the side of the treatment and the patient side of treatment had been marked by my initials. The patient underwent general anesthetic and was placed supine on the lithotripter table. We then used fluoroscopy to identify the stone on the Right side. We then positioned the patient under the lithotripter and we used triangulation technique to identify the location of the stone and then we made sure that the stone was engaged in the F2 focal point of F2 Donier lithoprior machine. Once the patient was positioned appropriately and the stone was identified and placed in the F2 focal point of the lithotripter machine we then proceeded with shockwave lithotripsy. In the beginning the shockwave was delivered at a rate of 90 shocks per minute, we monitor the EKG for any ectopy. The power was slowly increased to 5 kV and subsequently at the 7 kV. We then proceeded with the treatment we move the therapy had around during the treatment to make sure the stone stayed in the F2 focal point during the entire treatment and after 3000 shockwaves were delivered to the stone under fluoroscopic guidance the treatment was completed. The patient's urethra and genitals were prepped and draped in usual sterile fashion. I went into the bladder with a 21 Ethiopian rigid cystourethroscope. I grabbed the stent emanating from the right ureteral orifice and then gently remove the stent from the bladder. I then drained the patient's bladder.The patient was given instructions to call the office to make an a follow-up appointment with an xray to evaluate the success of the treatment, patient understands that its possible the stones may need another procedure.At this point the patient's anesthetic was reversed patient was extubated and taken back to the PACU in stable condition. Surgeon: maxine Type of Anesthesia: General Drains: stent removed Admit VTE Documentation VTE Present on Admission: No VTE Mechan Device Prophylaxis: SCD's VTE Pharm Prophylaxis ordered?: No
[2021-04-25 15:21] VITALS: BP 116/74; BP 135/74; PULSE 94; RESP 18; TEMP 36.6; O2SAT 96
[2021-04-25 15:31] VITALS: BP 120/74; BP 135/74; PULSE 86; RESP 16; O2SAT 100
[2021-04-25 15:44] VITALS: BP 120/88; BP 135/74; PULSE 78; RESP 17; TEMP 36.1; O2SAT 98
[2021-04-25] MEDS: Ketorolac 30 MG/ML Syringe IV (16:05)
[2021-04-25 16:41] VITALS: BP 135/74; BP 158/89; PULSE 85; RESP 16; TEMP 36.4; O2SAT 96
[2021-04-25 17:22] VITALS: BP 135/74
== END 2021-04-25 23:59 | disposition home or self-care (01) ==
LOC: SDC 11:40 → AC 11:42
PROVIDERS: PCP Internal Medicine; Referring Provider Urology; Visit Provider Urology
PROC: (CPT 50590; principal; 2021-04-25 13:50)
DX: N20.0 Calculus of kidney (principal); Z68.42 Body mass index [BMI] 45.0-49.9, adult; Z46.6 Encounter for fitting and adjustment of urinary device; I10 Essential (primary) hypertension; G89.29 Other chronic pain; Z79.899 Other long term (current) drug therapy; F41.9 Anxiety disorder, unspecified; F32.A Depression, unspecified; K21.9 Gastro-esophageal reflux disease without esophagitis; Z87.442 Personal history of urinary calculi; K58.9 Irritable bowel syndrome, unspecified; G47.33 Obstructive sleep apnea (adult) (pediatric); Z78.0 Asymptomatic menopausal state; E03.9 Hypothyroidism, unspecified; E66.9 Obesity, unspecified
CPT/HCPCS: 52310; 00873; 74018; 87426; 93005; J7120; C1769; J2405

== ENCOUNTER 2022-02-19 18:08 | Emergency (ER) | payer MEDICARE, MEDICAID, SELFPAY ==
[2022-02-19 18:09] VITALS: BP 165/77; PULSE 70; RESP 18; TEMP 36.8; O2SAT 97; BMI 52.4
[2022-02-19 18:13] VITALS: O2SAT 97
--- NOTE | 2022-02-19 18:43 | EKG12_ITS ---
Test Reason : DYSRHYTHMIA Blood Pressure : / mmHG Vent. Rate : 070 BPM Atrial Rate : 070 BPM P-R Int : 206 ms QRS Dur : 094 ms QT Int : 432 ms P-R-T Axes : 053 033 094 degrees QTc Int : 466 ms Normal sinus rhythm Normal ECG Confirmed by TAYLOR MEYERS, JOSE LUIS ([id number]), supervising film or videotape editor BRIAN YANG ([id number]) on 02/24/2022 9:24:49 AM Referred By: BB Confirmed By:JOSE LUIS VAZQUEZ MD
--- NOTE | 2022-02-19 18:56 | ED.VIS.DYS ---
HPI History of Present Illness Chief Complaint: Shortness of Breath Informant: patient and EMS Onset/Context/Timing Onset: Weeks (2-3) Context: gradual, onset, activity on onset and exertion Timing: Intermittent Quality: Positive for Dyspnea on exertion Current Severity: Gone Maximum Severity: Severe Associated Symptoms Negative for cough Chest Pain: Positive for None Narrative Narrative: Patient has arthritis issues, for which she has a hospital bed at home, and states she pretty much gets around her house and does not leave. She has chronic dyspnea with light exertion but states it has been noticeably worse in the last couple weeks, but today with any very light walking she was completely out of breath, near syncopal, and feeling very poorly. Rest would help. Chronic cough that has been worse for the last couple weeks no sputum. No fevers. No exertional chest discomfort, no coughing, fevers or chills, leg swelling. No history of heart or lung problems that she knows of. She has obstructive sleep apnea but does not use CPAP or BiPAP. She has chronic orthopnea and states that is no different. [facility] Medical History Ambulates with cane Anxiety Arthritis Back pain Bone spur of foot Chest pain Chronic cough Chronic pain Depression GERD (gastroesophageal reflux disease) Hiatal hernia History of hiatal hernia History of IBS Hypertension Hypothyroid IBS (irritable bowel syndrome) Kidney stones Migraines Non-smoker Obesity FREEMAN (obstructive sleep apnea) Osteoarthritis Post-menopausal Sciatic leg pain Sciatica Shortness of breath on exertion Sleep apnea Sleep apnea Syncope Thyroid disease Vertigo Vertigo Vision loss of left eye Vision loss of right eye Wears glasses Home Medications citalopram 20 mg tablet 20 mg PO QHS depression 06/03/16 [History Last Taken 04/08/21] meloxicam 7.5 mg tablet 15 mg PO QHS 06/09/20 [History Last Taken 04/08/21] acetaminophen 500 mg tablet 1,000 mg PO QHS PAIN 04/09/21 [History Last Taken 04/08/21] ergocalciferol (vitamin D2) 1,250 mcg (50,000 unit) capsule 1,250 mcg PO CABRERA SUPPLEMENT 04/09/21 [History Last Taken Unknown] gabapentin 400 mg capsule 400 mg PO QHS 04/09/21 [History Last Taken 03/01/22] levothyroxine 88 mcg tablet 88 mcg PO DAILY THYROID 04/09/21 [History Last Taken 04/25/21 88 mcg] meclizine 25 mg tablet 25 mg PO DAILY PRN Vertigo 04/18/21 [History Last Taken Unknown] ciprofloxacin HCl 500 mg tablet (Cipro) 500 mg PO BID #20 tabs 04/25/21 [Rx Last Taken Unknown] ibuprofen 600 mg tablet 600 mg PO Q6H PRN fever or pain #20 tabs 04/25/21 [Rx Last Taken Unknown] doxycycline monohydrate 100 mg capsule 100 mg PO BID #14 CAPSULES 02/19/22 [Rx Last Taken Unknown] prednisone 20 mg tablet 40 mg PO DAILY #10 TABLETS 02/19/22 [Rx Last Taken Unknown] Allergy/AdvReac Type Severity Reaction Status Date / Time codeine AdvReac Itching Verified 02/19/22 18:13 oxycodone AdvReac Itching Verified 02/19/22 18:13 Family History Father Heart disease Diabetes Mother Cancer Diabetes Surgical History History of cholecystectomy History of cystoscopy History of lithotripsy Hx of foot surgery Social History Smoking Status: Never smoker alcohol intake: never substance use type: does not use ROS ROS ED Constitutional Constitutional ED: Denies chills or fever(s) Eyes Eyes: Denies change in vision or diplopia ENT ENT ED: Denies rhinorrhea or sore throat Cardiovascular Cardiovascular: Reports as per HPI, lightheadedness and orthopnea; Denies chest pain, leg edema, palpitations, radiating jaw, neck or arm pain or syncope Respiratory/Chest Respiratory/Chest: Reports cough, dyspnea, dyspnea on exertion and orthopnea Gastrointestinal Gastrointestinal: Denies abdominal pain, diarrhea, nausea or vomiting Genitourinary Genitourinary ED: Denies dysuria or hematuria Musculoskeletal Musculoskeletal: Denies back pain or neck pain Integumentary Denies abscess or rash Neurologic Neurologic: Denies headache(s), paresthesias or weakness Psychiatric Psychiatric: Denies anxiety or suicidal thoughts EXAM Physical Exam Const Vital Signs: 02/19/22 18:09 02/19/22 18:13 02/19/22 20:37 Temperature 98.3 F Temperature Source Oral Pulse Rate 70 75 Respiratory Rate 18 13 Respiratory Pattern Normal Blood Pressure 165/77 H Blood Pressure Mean 106 Pulse Ox 97 97 Oxygen Delivery Method Room Air Room Air 02/19/22 20:48 Temperature Temperature Source Pulse Rate 81 Respiratory Rate 20 H Respiratory Pattern Normal Blood Pressure Blood Pressure Mean Pulse Ox Oxygen Delivery Method Positive well nourished and well developed Constitutional Narrative: Morbid obesity. Conversive in full sentences without any difficulty. General Appearance ED: well developed and NAD HEENT Reports moist mucous membranes normocephalic and atraumatic Eyes PERRL and EOMs intact bilaterally Neck full ROM, supple and no JVD Neck Narrative: JVD exam limited by obesity Resp normal respiratory effort and clear to auscultation bilaterally Cardio regular rate, regular rhythm and no murmurs Rate: Negative for tachycardic GI non-tender and non-distended Auscultation: normoactive bowel sounds Palpation: soft Back/Spine no CVA tenderness General Back: other FROM Extremity normal to inspection General Extremety ED: Negative for edema, pulses abnormal or tenderness General Extremity: Negative for edema or pulses abnormal Neuro oriented x3, CN's II-XII intact bilaterally and no sensory deficits noted Sensorium / Orientation: awake and alert Motor Exam: strength 5/5 throughout Psych mental status grossly normal Skin no rashes or lesions noted and no wounds MDM MDM MDM Narrative Medical decision making narrative: Patient is D-dimer 0.5 and when corrected for age this is well within normal limits to rule out pulmonary embolus acutely. Her EKG is normal, troponin negative, BNP is extremely low, ruling out acute decompensated congestive heart failure, her lungs are clear, she is a little hypertensive, but her chest x-ray two-view on my interpretation shows no signs of pulmonary edema or pneumonia. Etiology of her dyspnea is unknown. It certainly is possible due to her morbid obesity that it is related to that, and/or sleep apnea but not likely solely the etiology when she has pure dyspnea with very little exertion. She does have chronic cough that is significantly worse, we treated her with an albuterol aerosol to see if that would help her breathing. She says she does not think it helped, however with ambulation, she was dyspneic but she was not hypoxic or even borderline. She has had no dysrhythmias or episodes of syncope or near syncope here. I do not think she needs to be admitted. She is concerned about going home and passing out. I advised her to use her symptoms as a guide and if she gets dyspneic to stop and rest, but I think treating her for a lower respiratory tract infection empirically would be reasonable, it certainly is possible that her obesity is limiting her chest x-ray to some degree. I discussed this with her, providing her with antibiotics and steroids and an albuterol inhaler and seeing how she is tomorrow and discharging her home and she is fine with trying that. Lab Data Attestation: I reviewed the patient's lab results. Labs: Laboratory Results - last 24 hr 02/19/22 02/19/22 02/19/22 19:20 19:20 19:20 WBC 7.0 RBC 4.46 Hgb 14.5 Hct 42.2 MCV 94.6 MCH 32.5 H MCHC 34.4 RDW Std Deviation 46.2 H RDW Coeff of Geno 13.2 Plt Count 212 MPV 9.9 Immature Gran % (Auto) 0.700 Neut % (Auto) 55.0 Lymph % (Auto) 31.4 [place] % (Auto) 9.5 Eos % (Auto) 2.7 Baso % (Auto) 0.7 Absolute Neuts (auto) 3.9 Absolute Lymphs (auto) 2.21 Nucleated RBC % 0 D-Dimer Quant (PE/DVT) 0.50 H Sodium 140 Potassium 3.9 Chloride 103 Carbon Dioxide 31.0 Anion Gap 6 BUN 20 H Creatinine 0.98 Estim Creat Clear Calc 60.04 Est GFR (MDRD) Af Amer 74 Est GFR (MDRD) Non-Af 61 BUN/Creatinine Ratio 20.4 H Glucose 96 Calcium 9.1 Troponin I High Sens 7 B-Natriuretic Peptide 02/19/22 19:20 WBC RBC Hgb Hct MCV MCH MCHC RDW Std Deviation RDW Coeff of Geno Plt Count MPV Immature Gran % (Auto) Neut % (Auto) Lymph % (Auto) Florence % (Auto) Eos % (Auto) Baso % (Auto) Absolute Neuts (auto) Absolute Lymphs (auto) Nucleated RBC % D-Dimer Quant (PE/DVT) Sodium Potassium Chloride Carbon Dioxide Anion Gap BUN Creatinine Estim Creat Clear Calc Est GFR (MDRD) Af Amer Est GFR (MDRD) Non-Af BUN/Creatinine Ratio Glucose Calcium Troponin I High Sens B-Natriuretic Peptide 7.3 Radiography Diagnostic Testing: Clinical Impression(s) from Imaging Studies Chest X-Ray 02/19/22 19:35 IMPRESSION: Tortuous aorta without acute cardiopulmonary disease. Electronically Signed: Yung Sims DO at 19:52 EST Reading Location ID and State: [address] [place] [address] Tel [phone], Service support , Rhythm Strip Rhythm Strip: Sinus Rhythm Rate: 70 Ectopy: None EKG Initial EKG: Attestation: I personally reviewed and interpreted this EKG as follows: Interpretation: Sinus Rhythm and No Acute Injury Pattern Comments: nml EKG Discharge Plan Triage Chief Complaint: Shortness of Breath ED Provider: Giuseppe Lopes Dx/Rx/DC Orders Clinical Impression: Acute lower respiratory tract infection Instructions: Acute Bronchitis Prescriptions: New prednisone 20 mg tablet 40 mg PO DAILY Qty: 10 0RF doxycycline monohydrate 100 mg capsule 100 mg PO BID Qty: 14 0RF No Action citalopram 20 MG tablet 20 mg PO QHS meloxicam 7.5 mg Tablet 15 mg PO QHS gabapentin 400 mg capsule 400 mg PO QHS acetaminophen 500 mg tablet 1,000 mg PO QHS Label Comments: Take 1-2 tablets by mouth three times daily. levothyroxine 88 mcg tablet 88 mcg PO DAILY Label Comments: Take 1 tablet by mouth once daily. ergocalciferol (vitamin D2) 1,250 mcg (50,000 unit) capsule 1,250 mcg PO CABRERA Label Comments: Take 1 capsule by mouth one time a week. meclizine 25 mg Tablet 25 mg PO DAILY PRN (Reason: Vertigo) ciprofloxacin HCl [Cipro] 500 mg tablet 500 mg PO BID Qty: 20 0RF ibuprofen 600 mg tablet 600 mg PO Q6H PRN (Reason: fever or pain) Qty: 20 0RF Primary Care Provider: Deedee Reyes Referrals: Deedee Reyes MD [Primary Care Provider] - 3-5 Days if not improving Disposition Disposition: Home, Self Care
[2022-02-19 19:29] LABS: Absolute Lymphocyte Count 2.21 X10^3/uL (0.83-4.51); Absolute Neutrophil Count 3.9 X10^3/uL (2.0-7.7); Basophil# 0.05 X10^3/uL; Basophil% 0.7 % (0-1); Eosinophil# 0.19 X10^3/uL; Eosinophils% 2.7 % (0-5); Hematocrit 42.2 % (37-47); Hemoglobin 14.5 g/dL (12.0-15.0); Lymphocyte # 2.21 X10^3/ul (0.83-4.51); Lymphocyte % 31.4 % (19-41); Mean Corp Hgb Conc 34.4 g/dL (32-36); Mean Corpuscular Hgb 32.5 pg (27.0-32.0); Mean Corpuscular Volume 94.6 fL (81-99); Mean Platelet Vol. 9.9 fl (6.2-12.0); Monocyte# 0.67 X10^3/uL; Monocyte% 9.5 % (0-10); NRBC Flagged by Analyzer 0 % (0-5); Neutrophil # 3.87 X10^3/uL (2.7-7.7); Platelet Count 212 K/mm3 (150-450); RBC Distribution Width CV 13.2 % (11.6-14.6); RBC Distribution Width SD 46.2 fl (35.1-43.9); Red Blood Count 4.46 M/mm3 (4.2-5.4)
--- NOTE | 2022-02-19 19:35 | RAD_ITS ---
STUDY: X-RAY CHEST REASON FOR EXAM: Female, 62 years old. Dyspnea with exertion for 2 weeks. Near syncopal episode today. TECHNIQUE: PA and lateral views of the chest. COMPARISON: April 10, 2021. FINDINGS: The lungs are clear and expanded. There is no demonstrated pleural abnormality. Normal size heart. Normal mediastinum and stefany. Normal visualized pulmonary arteries. There is atherosclerotic tortuosity of the aortic arch and descending thoracic aorta. Normal visualized thoracic spine. Normal visualized ribs, clavicles, and shoulders. There is no demonstrated abnormality of the visualized soft tissue structures of the upper abdomen. RAD/Chest PA and Lateral IMPRESSION: Tortuous aorta without acute cardiopulmonary disease. Electronically Signed: Yung Sims DO at 19:52 EST ,
[2022-02-19 19:53] LABS: BNP,B-Type NATRIURETIC PEPTIDE 7.3 pg/mL (0-100)
[2022-02-19 20:21] LABS: Anion Gap 6 (5-15); BUN 20 mg/dL (7-18); BUN/Creat Ratio 20.4 RATIO (10-20); Calcium,Total 9.1 mg/dL (8.5-10.1); Chloride 103 mmol/L (98-107); Creatinine, Serum 0.98 mg/dL (0.55-1.02); EST Glomerular Filtration Rate 61 mL/min (>60); Est Glom Filt Rate - Afr Amer 74 mL/min (>60); Estimated Creatinine Clearance 60.04 ml/min; Glucose 96 mg/dL (74-106); Potassium 3.9 mmol/L (3.5-5.1); Sodium Level 140 mmol/L (136-145); Troponin-I HS 7 pg/mL (3.0-54.0)
[2022-02-19 20:37] VITALS: PULSE 75; RESP 13; O2SAT 97
[2022-02-19 20:48] VITALS: PULSE 81; RESP 20
[2022-02-19] MEDS: Albuterol 2.5 MG/3 ML VIAL.NEB. INHALATION (20:48)
[2022-02-19 21:35] VITALS: O2SAT 93
[2022-02-19 22:46] VITALS: PULSE 73; RESP 18; O2SAT 93
[2022-02-19] MEDS: Doxycycline 100 MG CAPSULE PO (22:54)
[2022-02-19] MEDS: MethylPREDNISolone 125 MG/2 ML Vial IV (22:55)
== END 2022-02-19 23:10 | disposition home or self-care (01) ==
PROVIDERS: Emergency Provider Emergency Medicine; PCP Internal Medicine; Visit Provider Emergency Medicine
DX: J22 Unspecified acute lower respiratory infection (principal); R55 Syncope and collapse; G47.33 Obstructive sleep apnea (adult) (pediatric); I10 Essential (primary) hypertension; R06.02 Shortness of breath; Z79.52 Long term (current) use of systemic steroids
CPT/HCPCS: 71046; 80048; 83880; 84484; 85025; 85379; 93005; 94640; 96374; 99252; 99285; A4216; G0463

== ENCOUNTER 2023-06-14 16:45 | Emergency (ER) | payer MEDICARE, MEDICAID, SELFPAY ==
[2023-06-14 16:46] VITALS: BP 185/102; PULSE 65; RESP 15; TEMP 36.4; O2SAT 94; BMI 54.3
--- NOTE | 2023-06-14 17:27 | EX.ED.DYSGE1 ---
HPI <CHANO Hill - Last Filed: 06/14/23 19:24> History of Present Illness Chief Complaint: Shortness of Breath Narrative Narrative: Patient is a 63-year-old female with history of morbid obesity, hypothyroidism who presents to the emergency department for 1 month of worsening shortness of breath. Patient states that is worse when she lays back, she can never lay flat however it is when she lays lower in her recliner. Patient saw cardiology 4 days ago, they did an EKG, and are currently getting set up for a cardiac stress test. Patient denies any significant pain however does state to have some heaviness. She denies any nausea or vomiting, denies any diaphoresis. Patient sometimes she notices that she gets out of breath even while talking. She feels she cannot catch her breath however she states she always ends up actually catching her breath. Patient Nuys any fever or chills. PFSH <CHANO Hill - Last Filed: 06/14/23 19:24> [facility] Medical History (Updated 06/14/23 @ 19:08 by CHANO Hill) Abnormal EKG Ambulates with cane Anxiety Arthritis Back pain Bone spur of foot Chest pain Chronic cough Chronic pain Depression GERD (gastroesophageal reflux disease) Hiatal hernia History of IBS Hypertension Hypothyroid IBS (irritable bowel syndrome) Insomnia Kidney stones Migraines Non-smoker Obesity FREEMAN (obstructive sleep apnea) Osteoarthritis Palpitations Post-menopausal Sciatic leg pain Sciatica Septic shock Shortness of breath on exertion Sleep apnea Syncope Thyroid disease Vertigo Vision loss of left eye Vision loss of right eye Wears glasses Home Medications citalopram 20 mg tablet 20 mg PO QHS depression 06/03/16 [History Last Taken 04/08/21] ergocalciferol (vitamin D2) 1,250 mcg (50,000 unit) capsule 1,250 mcg PO CABRERA SUPPLEMENT 04/09/21 [History Last Taken Unknown] levothyroxine 88 mcg tablet 88 mcg PO DAILY THYROID 04/09/21 [History Last Taken 04/25/21 88 mcg] acetaminophen 500 mg tablet 1,000 mg PO TID PAIN 01/22/23 [History Last Taken Unknown] gabapentin 400 mg capsule 400 mg PO TIDWMEAL 01/22/23 [History Last Taken Unknown] meclizine 25 mg tablet 25 mg PO TID PRN Vertigo 01/22/23 [History Last Taken Unknown] peg 400-propylene glycol 0.4 %-0.3 % eye drops (Systane Ultra) 1 drp ophthalmic (eye) BID PRN 01/22/23 [History Last Taken Unknown] trazodone 50 mg tablet 50 mg PO QHS 01/22/23 [History Last Taken Unknown] Allergy/AdvReac Type Severity Reaction Status Date / Time codeine AdvReac Itching Verified 06/14/23 16:48 oxycodone AdvReac Itching Verified 06/14/23 16:48 Family History Father Heart disease Diabetes Mother Cancer Diabetes Macular degeneration Surgical History History of cholecystectomy History of cystoscopy History of lithotripsy Hx of foot surgery Social History (Updated 06/10/23 @ 10:10 by Jaquelin King) Smoking Status: Never smoker alcohol intake: never substance use type: does not use caffeine: Yes Type: carbonated beverages and tea ROS <CHANO Hill - Last Filed: 06/14/23 19:24> ROS ED ROS Narrative Constitutional: Negative for fever, chills, weight loss, weakness Eyes: Negative for vision loss, vision change, double vision ENT: Negative for any sore throat, ear pain, congestion Cardiovascular: Negative for any chest pain, tightness, palpitations Respiratory: Negative for any cough, sputum production, hemoptysis.positive for dyspnea, dyspnea on exertion, orthopnea Gastrointestinal: Negative for any abdominal pain, nausea, vomiting, diarrhea, constipation, blood in stool, blood in vomit : Negative for any urinary frequency, dysuria, retention, blood in urine Muscle skeletal: Negative for any neck pain, back pain Neurological: Negative for any headache, syncope, dizziness Skin: Negative for any rashes, itching, abrasions, lacerations Psychiatric: Negative for any depression, anxiety, stress, suicidal ideation, homicidal ideation Hematologic: Negative for any excessive bruising, easy bleeding EXAM <CHANO Hill - Last Filed: 06/14/23 19:24> Physical Exam Narrative Exam Narrative: Vital signs reviewed. Patient has no obvious distress, patient has no conversational dyspnea. HEET: Head normocephalic atraumatic, TMs clear bilaterally. Posterior pharynx is clear, moist mucous membranes. Nares clear bilaterally. Neck: Supple with no lymphadenopathy or tenderness. No signs of meningismus. Cardiac: Regular rate and rhythm no murmurs gallops or rubs, equal peripheral pulses bilaterally. Respiratory: Lungs clear to auscultation bilaterally. No chest tenderness. Abdomen: Soft, nontender, nondistended. No abdominal bruit or pulsatile masses. No hepatosplenomegaly Extremities: No peripheral edema, no signs of gross trauma or deformity. Active full range of motion of all extremities. Neuro: Cranial nerves II through XII intact, no focal neurological deficits. Skin: Clean dry and intact with no rash, purpura, petechiae, vesicles or pustules. Backs/flank: No CVA tenderness, no midline spinal tenderness, no deformity. Psych: Normal mood and affect. No SI, HI or acute psychosis. Const Vital Signs: 06/14/23 16:46 06/14/23 17:30 06/14/23 17:30 Temperature 97.5 F L Temperature Source Temporal Pulse Rate 65 Respiratory Rate 15 Respiratory Effort Short of Breath Respiratory Depth Normal Respiratory Pattern Normal Blood Pressure 185/102 H Blood Pressure Mean 129 Pulse Ox 94 Oxygen Delivery Method Room Air Room Air Room Air 06/14/23 17:31 06/14/23 18:46 06/14/23 19:23 Temperature 98.3 F Temperature Source Pulse Rate 67 88 Respiratory Rate 12 16 Respiratory Effort Short of Breath Respiratory Depth Respiratory Pattern Normal Blood Pressure 143/90 H 151/84 H Blood Pressure Mean 107 106 Pulse Ox 99 100 Oxygen Delivery Method Room Air Positive obese Nutritional Appearance: obese <Dr. Perez Boggs, DO - Last Filed: 06/14/23 19:55> Physical Exam Const Vital Signs: 06/14/23 16:46 06/14/23 17:30 06/14/23 17:30 Temperature 97.5 F L Temperature Source Temporal Pulse Rate 65 Respiratory Rate 15 Respiratory Effort Short of Breath Respiratory Depth Normal Respiratory Pattern Normal Blood Pressure 185/102 H Blood Pressure Mean 129 Pulse Ox 94 Oxygen Delivery Method Room Air Room Air Room Air 06/14/23 17:31 06/14/23 18:46 06/14/23 19:23 Temperature 98.3 F Temperature Source Pulse Rate 67 88 Respiratory Rate 12 16 Respiratory Effort Short of Breath Respiratory Depth Respiratory Pattern Normal Blood Pressure 143/90 H 151/84 H Blood Pressure Mean 107 106 Pulse Ox 99 100 Oxygen Delivery Method Room Air [facility] <CHANO Hill - Last Filed: 06/14/23 19:24> [facility] Lab Data Labs: Laboratory Results - last 24 hr 06/14/23 17:37 WBC 4.5 RBC 4.59 Hgb 14.3 Hct 43.1 MCV 93.9 MCH 31.2 MCHC 33.2 RDW Std Deviation 44.2 H RDW Coeff of Geno 12.9 Plt Count TNP MPV 11.0 Immature Gran % (Auto) 0.700 Neut % (Auto) 41.5 L Lymph % (Auto) 46.3 H [place] % (Auto) 7.5 Eos % (Auto) 3.3 Baso % (Auto) 0.7 Absolute Neuts (auto) 1.9 L Absolute Lymphs (auto) 2.09 Nucleated RBC % 0 Differential Comment Platelet Estimate SLT DEC Sodium 138 Potassium 4.1 Chloride 104 Carbon Dioxide 31.0 Anion Gap 3 L BUN 23 H Creatinine 1.01 Estim Creat Clear Calc 89.93 Est GFR (MDRD) Af Amer 71 Est GFR (MDRD) Non-Af 59 L BUN/Creatinine Ratio 22.8 H Glucose 112 H Calcium 9.0 Troponin I High Sens 8 B-Natriuretic Peptide 26.5 Radiography Diagnostic Testing: Clinical Impression(s) from Imaging Studies Chest X-Ray 06/14/23 17:50 IMPRESSION: No radiographic evidence of acute cardiopulmonary disease. Electronically Signed: Luis E Calderon MD at 19:11 EDT , EKG Sinus rhythm with first-degree AV block: Attestation: I personally reviewed and interpreted this EKG as follows: Comments: Sinus rhythm with first-degree AV block, rate of 70 bpm, OR interval 210 ms, QRS duration 96 ms, no acute ST elevation, no acute infarct. Treatment and Re-Evaluation :: Differential diagnosis includes however is not limited to: Obstructive sleep apnea, ACS, NC, pneumonia, pleural effusions, PE Patient appears to be in no obvious respiratory distress, vital signs are stable. Patient presents to the emergency department with complaints of shortness of breath has been ongoing for 1 month. Today, the patient had some chest pressure, she called her PCP referred her to the ER. Patient denies any chest pain, radiation down upper or lower extremities. Patient will receive a cardiac workup including a two-view chest x-ray. Secondary to the patient having symptoms for 1 month, 1 troponin will be ordered. All radiologic examinations were read, reviewed by the emergency department attending. From these reads, a plan of care will be put in place. Patient's CBC was unremarkable, patient's chemistries were unremarkable, patient's creatinine was within normal limits. Glucose is 112. Troponin was negative, BNP was negative. At this time is no evidence of ACS, NC, CHF. Chest x-ray was unremarkable, at this time, do the patient is stable for discharge. The patient will need to follow-up with her environmental adviser for further workup. She is happy with the plan of care, at this time, she is asymptomatic, patient stable for discharge. <Dr. Perez Boggs, DO - Last Filed: 06/14/23 19:55> [facility] Narrative Medical decision making narrative: I have personally performed a face to face assessment of the patient and have reviewed the AZIZA Note. I performed a substantive portion of the visit including all aspects of the following. My morales findings include: History: Patient presents with shortness of breath that has been getting progressively worse over the past week. Patient states she feels like she cannot catch her breath. Patient admits to some heaviness over her chest. Patient states it is worse with lying flat. Patient states it comes and goes. Patient states it came on gradually. Patient denies any fevers or chills. Patient admits to a cough but denies any sputum production. Patient denies any sore throat or rhinorrhea. Exam: Vital signs are stable except for an elevated blood pressure of 185/102. Patient is afebrile. Patient is in no acute distress. Oral mucosa is pink and moist. Neck is supple. Trachea is midline. There is no JVD. Heart was regular rate and rhythm. Lungs are somewhat diminished bilaterally. There is good respiratory effort noted. Abdomen is soft and obese. Bowel sounds are normal. There is no tenderness. Cranial nerves II through XII are intact. There are no focal motor or sensory deficits noted. Extremities are intact. There there is no calf tenderness or edema. Medical Decision Making: Differential diagnosis includes pneumonia, congestive heart failure, cardiac dysrhythmia, cardiac ischemia, electrolyte abnormality, and anxiety. EKG will be obtained to assess for cardiac dysrhythmia and cardiac ischemia. Chest x-ray will be obtained to assess for pneumonia, pneumothorax, and congestive heart failure. CBC will be obtained to assess for leukocytosis and anemia. Basic metabolic profile will be obtained to assess for electrolyte abnormality renal function. High-sensitivity troponin will be obtained to assess for cardiac ischemia. BNP will be obtained to assess for congestive heart failure. Patient was given aspirin. EKG was obtained. On my independent interpretation, it shows a normal sinus rhythm with a first-degree AV block with a rate of 70. There are nonspecific ST-T wave changes in leads V2 through V5. This is unchanged compared to previous EKG dated 06/10/2023. PA and lateral chest x-ray was obtained. There are 2 views. On my independent interpretation, lung phan are clear. There is normal cardiac silhouette. Bony thorax is normal. There is no acute process noted. Radiologist also interpreted the x-ray and agrees. CBC was reviewed and was essentially within normal limits. Basic metabolic profile was reviewed and was within normal limits. High-sensitivity troponin was reviewed and was normal at 8. BNP was reviewed and was normal at 26.5. Patient was advised of her findings. Patient was instructed to follow-up with her primary care physician in 5 to 7 days. Patient was instructed to return if worse in any way. Patient understood and was agreeable with the plan. All questions were answered. Lab Data Labs: Laboratory Results - last 24 hr 06/14/23 17:37 WBC 4.5 RBC 4.59 Hgb 14.3 Hct 43.1 MCV 93.9 MCH 31.2 MCHC 33.2 RDW Std Deviation 44.2 H RDW Coeff of Geno 12.9 Plt Count TNP MPV 11.0 Immature Gran % (Auto) 0.700 Neut % (Auto) 41.5 L Lymph % (Auto) 46.3 H [place] % (Auto) 7.5 Eos % (Auto) 3.3 Baso % (Auto) 0.7 Absolute Neuts (auto) 1.9 L Absolute Lymphs (auto) 2.09 Nucleated RBC % 0 Differential Comment Platelet Estimate SLT DEC Sodium 138 Potassium 4.1 Chloride 104 Carbon Dioxide 31.0 Anion Gap 3 L BUN 23 H Creatinine 1.01 Estim Creat Clear Calc 89.93 Est GFR (MDRD) Af Amer 71 Est GFR (MDRD) Non-Af 59 L BUN/Creatinine Ratio 22.8 H Glucose 112 H Calcium 9.0 Troponin I High Sens 8 B-Natriuretic Peptide 26.5 Radiography Diagnostic Testing: Clinical Impression(s) from Imaging Studies Chest X-Ray 06/14/23 17:50 IMPRESSION: No radiographic evidence of acute cardiopulmonary disease. Electronically Signed: Luis E Calderon MD at 19:11 EDT , Discharge Plan Triage Chief Complaint: Shortness of Breath ED Midlevel Provider: Doni Cherry ED Provider: Perez Boggs Dx/Rx/DC Orders Prescriptions: No Action trazodone 50 mg tablet 50 mg PO QHS Patient Comments: Take 1 tablet by mouth daily at bedtime. Systane Ultra 0.4-0.3 % drops 1 drp ophthalmic (eye) BID PRN Patient Comments: Use 1 Drop in both eyes as needed. citalopram 20 MG tablet 20 mg PO QHS levothyroxine 88 mcg tablet 88 mcg PO DAILY Patient Comments: Take 1 tablet by mouth once daily. ergocalciferol (vitamin D2) 1,250 mcg (50,000 unit) capsule 1,250 mcg PO CABRERA Patient Comments: Take 1 capsule by mouth one time a week. gabapentin 400 mg capsule 400 mg PO TIDWMEAL acetaminophen 500 mg tablet 1,000 mg PO TID Patient Comments: Take 1-2 tablets by mouth three times daily. meclizine 25 mg tablet 25 mg PO TID PRN (Reason: Vertigo) Primary Care Provider: Deedee Reyes Referrals: Deedee Reyes MD [Primary Care Provider] -
--- NOTE | 2023-06-14 17:30 | EKG12_ITS ---
Test Reason : SOB Blood Pressure : / mmHG Vent. Rate : 070 BPM Atrial Rate : 070 BPM P-R Int : 210 ms QRS Dur : 096 ms QT Int : 414 ms P-R-T Axes : 038 043 -29 degrees QTc Int : 447 ms Sinus rhythm with 1st degree A-V block T wave abnormality, consider anterior ischemia Abnormal ECG Confirmed by Abelardo Becerril ([id number]), manager editorial DIANE SERRANO ([id number]) on 06/15/2023 10:02:49 AM Referred By: Confirmed By:Abelardo Becerril
[2023-06-14] MEDS: Aspirin 81 MG TAB.CHEW 324 MG PO (17:37)
[2023-06-14 17:47] LABS: Absolute Lymphocyte Count 2.09 X10^3/uL (0.83-4.51); Absolute Neutrophil Count 1.9 X10^3/uL (2.0-7.7); Basophil# 0.03 X10^3/uL; Basophil% 0.7 % (0-1); Eosinophil# 0.15 X10^3/uL; Eosinophils% 3.3 % (0-5); Hematocrit 43.1 % (37-47); Hemoglobin 14.3 g/dL (12.0-15.0); Lymphocyte # 2.09 X10^3/ul (0.83-4.51); Lymphocyte % 46.3 % (19-41); Mean Corp Hgb Conc 33.2 g/dL (32-36); Mean Corpuscular Hgb 31.2 pg (27.0-32.0); Mean Corpuscular Volume 93.9 fL (81-99); Monocyte# 0.34 X10^3/uL; Monocyte% 7.5 % (0-10); NRBC Flagged by Analyzer 0 % (0-5); Neutrophil # 1.87 X10^3/uL (2.7-7.7); Neutrophil % 41.5 % (47-70); POSITIVE COUNT YES; RBC Distribution Width CV 12.9 % (11.6-14.6); RBC Distribution Width SD 44.2 fl (35.1-43.9); Red Blood Count 4.59 M/mm3 (4.2-5.4); White Blood Count 4.5 K/mm3 (4.4-11.0)
[2023-06-14 17:48] LABS: Differential Indicated SCAN CRITERIA MET
--- NOTE | 2023-06-14 17:50 | RAD_ITS ---
EXAM: XR CHEST, 2 VIEWS CLINICAL INDICATION: chest pain TECHNIQUE: Frontal and lateral views of the chest. COMPARISON: 02/19/2022 FINDINGS: LUNGS AND PLEURAL SPACES: Unremarkable. No consolidation or edema. No pneumothorax. No effusion. HEART: Unremarkable. Cardiac silhouette not enlarged. MEDIASTINUM: Central airways and mediastinal contour are unremarkable. BONES/JOINTS: Unremarkable. No acute fracture. SOFT TISSUES: Unremarkable. RAD/Chest PA and Lateral IMPRESSION: No radiographic evidence of acute cardiopulmonary disease. Electronically Signed: uLis E Calderon MD at 19:11 EDT ,
[2023-06-14 18:05] LABS: Platelet Estimate SLT DEC (ADEQ)
[2023-06-14 18:08] LABS: Anion Gap 3 (5-15); BUN 23 mg/dL (7-18); BUN/Creat Ratio 22.8 RATIO (10-20); Chloride 104 mmol/L (98-107); Creatinine, Serum 1.01 mg/dL (0.55-1.02); EST Glomerular Filtration Rate 59 mL/min (>60); Est Glom Filt Rate - Afr Amer 71 mL/min (>60); Estimated Creatinine Clearance 89.93 ml/min; Glucose 112 mg/dL (74-106); Potassium 4.1 mmol/L (3.5-5.1); Sodium Level 138 mmol/L (136-145); Troponin-I HS 8 pg/mL (3.0-54.0)
[2023-06-14 18:20] LABS: BNP,B-Type NATRIURETIC PEPTIDE 26.5 pg/mL (0-100)
[2023-06-14 18:46] VITALS: BP 143/90; PULSE 67; RESP 12; O2SAT 99
[2023-06-14 19:23] VITALS: BP 151/84; PULSE 88; RESP 16; TEMP 36.8; O2SAT 100
== END 2023-06-14 19:27 | disposition home or self-care (01) ==
PROVIDERS: Nurse Practitioner; Emergency Provider Emergency Medicine; PCP Internal Medicine; Visit Provider Emergency Medicine
DX: R06.02 Shortness of breath (principal); E66.01 Morbid (severe) obesity due to excess calories; I10 Essential (primary) hypertension; F32.A Depression, unspecified; E03.9 Hypothyroidism, unspecified; R42 Dizziness and giddiness; Z90.49 Acquired absence of other specified parts of digestive tract
CPT/HCPCS: 71046; 80048; 83880; 84484; 85025; 93005; 99285

== ENCOUNTER → 2024-10-11 05:00 | Outpatient (REF) | payer MEDICARE, MEDICAID, SELFPAY ==
[2024-10-11 07:41] LABS: Hematocrit 39.5 % (37-47); Hemoglobin 13.0 g/dL (12.0-15.0); Immature Granulocytes Count 0.030 X10^3/uL (0.0-0.0); Mean Corp Hgb Conc 32.9 g/dL (32-36); Mean Corpuscular Volume 92.3 fL (81-99); Mean Platelet Vol. 9.9 fl (6.2-12.0); NRBC Flagged by Analyzer 0 % (0-5); Platelet Count 198 K/mm3 (150-450); RBC Distribution Width CV 12.6 % (11.6-14.6); RBC Distribution Width SD 42.5 fl (35.1-43.9); Red Blood Count 4.28 M/mm3 (4.2-5.4); White Blood Count 4.4 K/mm3 (4.4-11.0)
[2024-10-11 08:09] LABS: AST(SGOT) 17 U/L (<=31); Alanine Aminotransfer ALT/SGPT 13 U/L (<=34); Albumin, Serum 3.6 g/dL (3.4-4.8); Alkaline Phosphatase 50 U/L (35-104); Anion Gap 9 (5-15); BUN 20 mg/dL (4-19); BUN/Creat Ratio 20.0 RATIO (10-20); Calcium,Total 9.2 mg/dL (7.6-11.0); Carbon Dioxide 24.6 mmol/L (21.0-32.0); Chloride 103 mmol/L (98-108); Cholesterol 186 mg/dL (<=200); Globulin 3.2 g/dL (2.2-4.2); Glucose 108 mg/dL (70-99); Low Density Lipoprotein Calc. 124 mg/dL; Potassium 4.2 mmol/L (3.3-5.1); Triglycerides 123 mg/dL; Very Low Density Lipoprotein 25 mg/dL (5-40); Vitamin B12 560 pg/mL (180-914); Vitamin D,25 Hydroxy 31.0 ng/mL (30-100); cholesterol:hdl ratio screen 4.92
== END ==
LOC: OLS.SWAL 05:00
PROVIDERS: PCP Internal Medicine; Visit Provider Internal Medicine
DX: E03.9 Hypothyroidism, unspecified (principal); H81.13 Benign paroxysmal vertigo, bilateral
CPT/HCPCS: 36415; 80053; 80061; 82306; 82607; 84443; 85025

== ENCOUNTER 2024-12-29 19:09 | Emergency (ER) | payer MEDICARE, MEDICAID, SELFPAY ==
[2024-12-29 19:11] VITALS: BP 114/92; PULSE 75; RESP 18; TEMP 36.3; O2SAT 98
--- OUTSIDE RECORDS SUMMARY | 2024-12-29 20:35 | XMS RPT_ITS | CCD ---
Author Organization [facility] Care Team Providers Care Nursing Administrator Name Role Phone Nigel Carrillo MD Primary Care Provider Dr. Nigel Carrillo Primary Care Provider Dr. Nigel Carrillo Referring Provider Dr. Ryne Oliveira Attending Provider Nigel Carrillo MD Primary Care Provider NBA CACERES Attending Unavailable GANTA, NIGEL Primary Care Unavailable OLDER, ANGELIKA Referring Unavailable Nigel Carrillo MD Primary Care Provider [phone] Unavailable Primary Care Provider Unavailabl e Delmi Elder PA-C Unavailable Older 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, Angelika Unavailable [phone] Trena Knight PA-C Unavailable Gayathri Desai Attending Unavailable Ganta, Nigel Primary Care Unavailable OLDER, ANGELIKA Attending Unavailable GANTA, NIGEL Primary Care Unavailable OLDER, ANGELIKA Referring Unavailable GANTA, NIGEL Primary Care Unavailable GANTA, NIGEL Primary Care Unavailable OLDER, ANGELIKA Attending Unavailable OLDER, ANGELIKA Attending Unavailable GANTA, NIGEL Primary Care Unavailable OLDER, ANGELIKA Referring Unavailable GANTA, NIGEL Primary Care Unavailable GANTA, NIGEL Primary Care Unavailable DONI CORONADO Referring Unavailable RUPALI MERRITT Attending Unavaila ble GANTA, NIGEL Primary Care Unavailable ROZMAN DONI Attending Unavailable OLDER, ANGELIKA Referring Unavailable OLDER, ANGELIKA Attending Unavailable GANTA, NIGEL Primary Care Unavailable OLDER, ANGELIKA Attending Unavailable GANTA, NIGEL Primary Care Unavailable OLDER, ANGELIKA Referring Unavailable GANTA, NIGEL Primary Care Unavailable OLDER, ANGELIKA Referring Unavailable GANTA, NIGEL Primary Care Unavailable OLDER, ANGELIKA Attending Unavailable [facility] Primary Care Unavailable Allergies Allergy Classification Reported Allergen(s) Allergy Type Date of Onset Reaction(s) Facility (20 sources) Codeine; Translations: [CODEINE] Drug Allergy 1 Itching [facility] (20 sources) oxyCODONE; Translations: [OXYCODONE] Drug Allergy 9 Itching [facility] (20 sources) Amoxicillin / Clavulanate; Translations: [AMOXICILLIN-POT CLAVULANATE] Drug Allergy 4 GI Upset [facility] (20 sources) tiZANidine; Translations: [TIZANIDINE] Drug Allergy 4 Other: See Comments [facility] (1 source) Codeine Drug Allergy 4 [facility] (1 source) oxyCODONE Drug Allergy 4 [facility] Medications Current Medications Medication Drug Class(es) Dates Sig (Normalized) Sig (Original) acetaminophen 500 mg oral tablet (20 sources) Start: 04-09-2021 End: 01-22-2023 take 1000 mg by mouth three times daily Acetaminophen Active 1000 MG PO THREE TIMES A DAY January 22, 2023 10:48am Start: 05-08-2020 take 1-2 tablets by mouth three times daily acetaminophen (TYLENOL) 500 mg tablet Take 1-2 tablets by mouth three times daily. 60 tablet 1 05/08/2020 Active Comment on above: Take 1-2 tablets by mouth three times daily. amoxicillin 875 mg oral tablet (1 source) Penicillin-class Antibacterial Start: 03-30-19 End: 04-04-19 take 1 tablet by mouth twice daily amoxicillin (AMOXIL) 875 mg tablet Take 1 tablet by mouth two times a day for 5 days. 10 tablet 0 03/30/2023 04/04/2023 Active Comment on above: Take 1 tablet by [facility] two times a day for 5 days. benoxinate hydrochloride 4 mg/ml / fluorescein sodium 2.5 mg/ml ophthalmic solution (1 source) Diagnostic Dye Start: 06-03-19 End: 06-04-19 fluorescein-benoxin ate 0.25-0.4 % 1 Drop (FLURESS) benzonatate 100 mg oral capsule (10 sources) Non-narcotic Antitussive Start: 06-29-19 take 1 capsule by mouth every eight hours as needed benzonatate (TESSALON PERLE) 100 mg capsule Take 1 capsule by mouth three times a day as needed. 30 capsule 06/28/2024 Active citalopram 40 mg oral tablet (20 sources) Serotonin Reuptake Inhibitor Start: 08-18-19 take 1 tablet by mouth once daily citalopram (CELEXA) 40 mg tablet Take 1 tablet by mouth once daily. 90 tablet 3 08/17/2024 Active Start: 07-14-2024 End: 08-17-2024 take 1 tablet by mouth once daily citalopram (CELEXA) 20 mg tablet Take 1 tablet by mouth once daily. 30 tablet 07/14/2024 08/17/2024 Discontinued Start: 06-28-2024 End: 07-14-2024 take 1 tablet by mouth once daily citalopram (CELEXA) 40 mg tablet Take 1 tablet by mouth once daily. 90 tablet 3 06/28/2024 07/14/2024 Discontinued Start: 02-03-2024 take 1 tablet by [facility] th once daily citalopram (CELEXA) 40 mg tablet Take 1 tablet by mouth once daily. 90 tablet 3 02/03/2024 Active Start: 12-21-2022 End: 02-03-2024 take 1 tablet by mouth once daily citalopram (CELEXA) 20 mg tablet Take 1 tablet by mouth once daily. 90 tablet 3 12/21/2022 02/03/2024 Discontinued Start: 06-03-2016 End: 06-09-2021 take 1 tablet by mouth once daily citalopram (CELEXA) 20 mg tablet Take 1 tablet by mouth once daily. 90 tablet 3 08/04/2022 Active Comment on above: Take 1 tablet by [facility] th once daily. doxycycline hyclate 100 mg oral capsule (3 sources) Tetracycline-cla ss Drug Start: 06-28-2024 End: 07-08-2024 take 1 capsule by mouth twice daily doxycycline hyclate (VIBRAMYCIN) 100 mg capsule Take 1 capsule by mouth two times a day for 10 days. 20 capsule 06/28/2024 07/08/2024 Active Start: 02-19-2022 End: 01-22-2023 take 100 mg by mouth twice daily Doxycycline Monohydrate Discontinued 100 MG PO TWICE A DAY February 19, 2022 1:00am January 22, 2023 10:49am ergocalciferol 1.25 mg oral capsule (20 sources) Provitamin D2 Compound Start: 04-08-2022 End: 05-31-2023 take 1 capsule by mouth every week ergocalciferol 50,000 unit capsule (VITAMIN D2, DRISDOL) Take 1 capsule by mouth one time a week. 90 capsule 3 06/01/2023 Active Start: 04-09-2021 Ergocalciferol (Vitamin D2) Active 1250 MCG PO CABRERA April 09, 2021 1:00am Start: 04-04-2020 End: 04-06-2022 take 1 capsule by mouth every week ergocalciferol 50,000 unit capsule (VITAMIN D2, DRISDOL) Take 1 capsule by mouth one time a week. 30 capsule 0 05/07/2021 04/06/2022 Discontinued Comment on above: Take 1 capsule by [facility] one time a week. fluticasone propionate 0.05 mg/actuat metered dose nasal spray (20 sources) Corticosteroid Start: 06-29-19 take 2 spray(s) by mouth once daily as needed fluticasone (FLONASE) 50 mcg/actuation nasal spray Use 2 Sprays in each nostril once daily as needed for cold/allergy symptoms. Rinse mouth after use. 06/29/2023 Active gabapentin 400 mg oral capsule (20 sources) Anti-epileptic Agent Start: 09-14-19 End: 09-14-19 26 take 1 capsule by mouth twice daily gabapentin (NEURONTIN) 400 mg capsule Take 1 capsule by mouth two times a day. (MAY MAKE DROWSY) 180 capsule 3 09/13/2024 09/13/2025 Active Start: 07-17-2024 End: 07-15-2025 gabapentin (NEURONTIN) 400 m g capsule TAKE 1 CAPSULE THREE TIMES A DAY WITH MEALS (MAY MAKE DROWSY) 270 capsule 3 07/17/2024 07/15/2025 Active Start: 08-28-2020 End: 12-21-2023 gabapentin (NEURONTIN) 400 m g capsule TAKE 1 CAPSULE THREE TIMES A DAY WITH MEALS (MAY MAKE DROWSY) 270 capsule 3 12/21/2022 Active Start: 06-09-2020 End: 06-29-2023 gabapentin (NEURONTIN) 300 m g capsule AT BEDTIME 0 06/09/2020 Active Comment on above: AT BEDTIME Take 1 capsule by mo uth three times daily with meals for 90 days. May make drowsy TAKE 1 CAPSULE THREE TIMES A DAY WITH MEALS (MAY MAKE DROWSY) levothyroxine sodium 0.088 mg oral tablet (20 sources) l-Thyroxine Start: take 1 tablet by mouth once daily levothyroxine (SYNTHROID) 88 mcg tablet Take 1 tablet by mouth once daily. 90 tablet 3 06/28/2024 Active Start: 12-21-2022 take 1 tablet by [facility] th once daily levothyroxine (SYNTHROID) 88 mcg tablet Take 1 tablet by mouth once daily. 90 tablet 3 12/21/2022 Active Start: 09-11-2020 End: 03-31-2022 take 1 tablet by mouth once daily levothyroxine (SYNTHROID) 88 mcg tablet Take 1 tablet by mouth once daily. 90 tablet 3 12/21/2022 Active Comment on above: Take 1 tablet by [facility] th once daily. meclizine hydrochloride 25 mg oral tablet (20 sources) Antiemetic Start: 11-26-2021 End: 11-11-2022 meclizine (ANTIVERT) 25 mg tab TAKE 1 TABLET THREE TIMES A DAY NEEDED FOR DIZZINESS 30 tablet 35 11/11/2022 Active Start: 04-18-2021 End: 01-22-2023 take 25 mg by mouth once daily Meclizine Discontinued 25 MG PO DAILY April 18, 2021 1:00am January 22, 2023 10:50am Start: 02-24-2020 End: 11-24-2021 take 1 tablet by mouth every eight hours as needed meclizine (ANTIVERT) 25 mg tab Take 1 tablet by mouth three times daily as needed (dizziness). 30 tablet 0 05/07/2021 11/24/2021 Discontinued Start: 02-02-2016 End: 06-03-2016 take 25 mg by mouth four times daily as needed Meclizine Discontinued 25 MG PO 4 TIMES DAILY NEEDED February 02, 2016 1:00am June 03, 2016 7:07am Comment on above: Take 1 tablet by [facility] th three times daily as needed (dizziness). Take 25 mg by mouth three times daily as needed. TAKE 1 TABLET THREE TIMES A DAY NEEDED FOR DIZZINESS meloxicam 15 mg oral tablet (20 sources) Nonsteroidal Anti-inflammatory Drug Start: 06-28-2024 End: 09-08-2024 meloxicam (MOBIC) 15 mg tablet TAKE 1 TABLET DAILY WITH FOOD 90 tablet 3 09/08/2024 Active Start: 02-03-2024 meloxicam (MOB IC) 15 mg tablet TAKE 1 TABLET DAILY WITH FOOD 90 tablet 3 02/03/2024 Active Start: 12-21-2022 End: 06-10-2023 take 15 mg by mouth once daily Meloxicam Discontinued 15 MG PO DAILY January 22, 2023 1:00am June 10, 2023 10:05am Start: 10-22-2021 End: 04-01-2022 meloxicam (MOBIC) 15 mg tabl et TAKE 1 TABLET DAILY WITH FOOD 90 tablet 3 04/01/2022 Active Start: 06-11-2021 End: 10-20-2021 take 1 tablet by mouth once daily at mealtime meloxicam (MOBIC) 15 mg tablet Take 1 tablet by mouth once daily. With food. 90 tablet 0 07/04/2021 10/20/2021 Discontinued Start: 12-26-2020 End: 06-11-2021 take 1 tablet by mouth twice daily meloxicam (MOBIC) 7.5 mg tablet Take 1 tablet by mouth twice daily. 180 tablet 1 06/09/2021 06/11/2021 Discontinued Start: 06-09-2020 End: 01-22-2023 take 15 mg by mouth at bedtime Meloxicam Discontinued 15 MG PO AT BEDTIME June 09, 2020 12:00am January 22, 2023 10:47am Comment on above: Take 1 tablet by [facility] th twice daily. Take 1 tablet by [facility] th once daily. With food. TAKE 1 TABLET DAILY WITH FOOD phenylephrine hydrochloride 25 mg/ml ophthalmic solution (1 source) alpha-1 Adrenergic Agonist Start: 06-02-2021 End: 06-03-2021 PHENYLephrine 2.5 % 1 Drop (AK-DILATE, LANE-SYNEPHRINE) polyethylene glycol 400 4 mg/ml / propylene glycol 3 mg/ml ophthalmic solution (20 sources) Start: 01-22-2023 Peg 400-Propylene Glycol (Systane Ultra) 0.4-0.3 % drops Active 1 DRP OPHTHALMIC TWICE A DAY January 22, 2023 1:00am Start: 06-09-2021 PEG 400-propyl keyana glycol (SYSTANE ULTRA) 0.4-0.3 % ophthalmic solution Use 1 Drop in both eyes twice daily. 10 mL 3 06/09/2021 Active Start: 06-05-2021 End: 07-14-2022 PEG 400-propylene glycol (SY STANE ULTRA) 0.4-0.3 % ophthalmic solution Use 1 Drop in both eyes twice daily. 10 mL 3 06/09/2021 07/14/2022 Active Start: 06-02-2021 PEG 400-propyl keyana glycol (SYSTANE ULTRA) 0.4-0.3 % ophthalmic solution Use 1 Drop in both eyes as needed. 10 mL 5 06/02/2021 Active Comment on above: Use 1 Drop in both e yes as needed. Use 1 Drop in both e yes twice daily. traZODone hydrochloride 50 mg oral tablet (20 sources) Serotonin Reuptake Inhibitor Start: 01-22-2023 traZODone (DESYREL) 50 mg tablet TAKE 1 TABLET DAILY AT BEDTIME 90 tablet 3 02/09/2023 Active Start: 06-03-2022 End: 11-09-2022 traZODone (DESYREL) 50 mg ta blet TAKE 1 TABLET DAILY AT BEDTIME 90 tablet 0 11/09/2022 Active Start: 01-26-2022 End: 06-03-2022 take 1 tablet by mouth once daily at bedtime traZODone (DESYREL) 100 mg tablet Take 1 tablet by mouth daily at bedtime. 90 tablet 1 01/26/2022 06/03/2022 Discontinued Start: 12-29-2021 End: 01-26-2022 take 1 tablet by mouth once daily at bedtime traZODone (DESYREL) 50 mg tablet Take 1 tablet by mouth daily at bedtime. 30 tablet 1 12/29/2021 01/26/2022 Discontinued Comment on above: Take 1 tablet by [facility] th daily at bedtime. TAKE 1 TABLET DAILY AT BEDTIME tropicamide 10 mg/ml ophthalmic solution (1 source) Anticholinergic Start: 06-03-19 End: 06-04-19 tropicamide 1 % 1 Drop (MYDRIACYL) vitamin b12 1 mg extended release oral tablet (16 sources) Vitamin B12 Start: 06-29-19 take 1 tablet by mouth once daily Cyanocobalamin 1,000 mcg TbER Take 1 tablet by mouth once daily. 90 tablet 3 06/28/2024 Active Start: 02-14-2024 take 1 tablet by [facility] once daily Cyanocobalamin 1,000 mcg TbER Take 1 tablet by mouth once daily. 90 tablet 1 02/14/2024 Active Walker misc (11 sources) Start: 05-18-2024 Walker misc In dications: Ambulatory dysfunction , Lumbar and sacral arthritis , Weakness of both lower extremities Standard Walker 1 each 1 05/18/2024 Active Completed/Discontinued Medications Medication Drug Class(es) Dates Sig (Normalized) Sig (Original) ciprofloxacin 500 mg oral tablet (2 sources) Quinolone Antimicrobial Start: 04-25-2021 End: 01-22-2023 take 1 tablet by mouth twice daily Ciprofloxacin Hcl (Cipro) 500 mg tablet Discontinued 500 MG PO TWICE A DAY April 25, 2021 12:00am January 22, 2023 10:48am CPAP/BIPAP/OTHER (20 sources) Start: 06-03-2022 End: 06-29-2023 CPAP/BIPAP/OTHER Type .CPAPSettings into a note to see current settings/supplies/ DME information. 1 Each 0 06/03/2022 06/29/2023 Discontinued (Discontinued by Patient) Start: 06-03-2022 End: 10-18-2049 CPAP/BIPAP/OTHER Type .CPAPS ettings into a note to see current settings/supplies/DME information. 1 Each 0 06/03/2022 10/18/2049 Active Comment on above: Type .CPAPSettings i nto a note to see current settings/supplies/DME information. cyclobenzaprine hydrochloride 10 mg oral tablet (1 source) Muscle Relaxant Start: 2020 End: 2021 take 1 tablet by mouth every twenty-four hours as needed cyclobenzaprine (FLEXERIL) 10 mg tablet Take 1 tablet by mouth at bedtime as needed for muscle spasm or pain (may make drowsy). 30 tablet 0 10/03/2020 05/07/2021 Discontinued (Discontinued by Patient) Comment on above: Take 1 tablet by [facility] th at bedtime as needed for muscle spasm or pain (may make drowsy). ibuprofen 600 mg oral tablet (4 sources) Nonsteroidal Anti-inflammatory Drug Start: 2021 End: 2022 take 600 mg by mouth every six hours Ibuprofen Discontinued 600 MG PO EVERY 6 HOURS April 25, 2021 12:00am January 22, 2023 10:49am Start: 08-27-2020 End: 08-28-2020 take 600 mg by mouth at bedtime Ibuprofen Discontinued 600 MG PO AT BEDTIME August 27, 2020 12:00am August 28, 2020 11:05am loratadine 10 mg oral tablet (20 sources) Start: 07-04-2021 End: 06-29-2023 take 1 tablet by mouth once daily loratadine (CLARITIN) 10 mg tablet Take 1 tablet by mouth once daily. 90 tablet 3 07/04/2021 06/29/2023 Discontinued (Discontinued by Patient) Comment on above: Take 1 tablet by [facility] th once daily. MEDICAL SUPPLY (20 sources) Start: 01-20-2022 End: 06-29-2023 MEDICAL SUPPLY Scooter to help with mobility out side the house 1 Each 0 01/20/2022 06/29/2023 Discontinued Start: 01-20-2022 MEDICAL SUPPLY Scooter to help with mobility out side the house 1 Each 0 01/20/2022 Active Start: 09-08-2021 End: 01-20-2022 MEDICAL SUPPLY Scooter to he lp with mobility out side the house 1 Each 0 09/08/2021 01/20/2022 Discontinued Start: 09-08-2021 MEDICAL SUPPLY Scooter to help with mobility out side the house 1 Each 0 09/08/2021 Active Comment on above: Scooter to help with mobility out side the house nystatin 100 unt/mg topical ointment (20 sources) Polyene Antifungal Start: 01-22-2023 End: 06-10-2023 Nystatin Discontinued 1 APPLIC TOPICAL TWICE A DAY January 22, 2023 1:00am June 10, 2023 10:03am Start: 11-11-2022 End: 06-29-2023 nystatin (MYCOSTATIN) ointme nt APPLY TO THE AFFECTED AREA TWICE A DAY 30 g 23 11/11/2022 06/29/2023 Discontinued (Discontinued by Patient) Start: 02-03-2022 End: 03-05-2022 nystatin (MYCOSTATIN) ointme nt Apply to affected area twice daily. 30 g 2 02/03/2022 03/05/2022 Active Comment on above: Apply to affected ar ea twice daily. APPLY TO THE AFFECTE D AREA TWICE A DAY predniSONE 20 mg oral tablet (4 sources) Start: 02-19-2022 End: 01-22-2023 take 40 mg by mouth once daily Prednisone Discontinued 40 MG PO DAILY February 19, 2022 1:00am January 22, 2023 10:49am Start: 08-25-2020 End: 08-28-2020 take 40 mg by mouth once daily Prednisone Discontinued 40 MG PO DAILY August 25, 2020 12:00am August 28, 2020 11:03am pseudoephedrine hydrochloride 30 mg oral capsule (20 sources) alpha-Adrenergic Agonist Start: 01-22-2023 End: 06-10-2023 take 1 capsule by mouth once Pseudoephedrine Hcl (Nasal Decongestant (Pseudoeph)) 30 mg capsule (abuse-resistant) Discontinued 30 MG PO ONCE January 22, 2023 1:00am June 10, 2023 10:03am End: 06-29-2023 pseudoephedrine HCl (SUDAFED ORAL) Take by mouth. 0 06/29/2023 Discontinued (Discontinued by Patient) pseudoephedrine HCl (SUDAFED ORAL) Take by mouth. 0 Active Comment on above: Take by mouth. tiZANidine 4 mg oral tablet (8 sources) Central alpha-2 Adrenergic Agonist Start: End: take 1 tablet by mouth every eight hours as needed tiZANidine (ZANAFLEX) 4 mg tablet Take 1 tablet by mouth every 8 hours as needed (muscle spasms). 30 tablet 1 01/28/2023 06/03/2023 Discontinued Comment on above: Take 1 tablet by [facility] every 8 hours as needed (muscle spasms). zolpidem tartrate 5 mg oral tablet (1 source) gamma-Aminobutyric Acid-ergic Agonist Start: 1 End: 2 take 1 tablet by mouth once daily at bedtime as needed zolpidem (AMBIEN) 5 mg tablet Indications: FREEMAN (obstructive sleep apnea) Take 1 tablet by mouth at bedtime as needed for up to 1 day. 1 tablet 0 10/23/2020 05/07/2021 Discontinued (Discontinued by Patient) Comment on above: Take 1 tablet by [facility] at bedtime as needed for up to 1 day. Problems Active Problems Problem Classification Problem Date Documented Date Episodic/Chronic Abdominal pain (2 sources) Abdominal pain; Translations: [Unspecified abdominal pain] 04-13-2017 Episodic Acute and unspecified renal failure (2 sources) Injury of kidney; Translations: [Acute kidney failure, unspecified] 04-20-2021 Episodic Administrative/social admission (1 source) Lives alone; Translations: [Problems related to living alone] 02-03-2024 Episodic Anxiety disorders (20 sources) Mixed anxiety and depressive disorder; Translations: [Anxiety disorder, unspecified] Onset: 02-03-2024 02-03-2024 Chronic Aortic; peripheral; and visceral artery aneurysms (2 sources) Ascending aorta dilatation; Translations: [Thoracic aortic ectasia] 06-10-2023 Chronic Blindness and vision defects (3 sources) Bilateral hyperopia of eyes; Translations: [Hypermetropia, bilateral] Episodic Calculus of urinary tract (20 sources) Kidney stone; Translations: [Calculus of kidney] Episodic Cardiac dysrhythmias (3 sources) Palpitations; Translations: [Palpitations] 01-28-2023 Episodic Cataract (1 source) Bilateral senile combined form cataracts of eyes; Translations: [Combined forms of age-related cataract, bilateral] Chronic Deficiency and other anemia (1 source) Anemia; Translations: [Anemia, unspecified] Episodic Diabetes mellitus without complication (1 source) Increased glucose level; Translations: [Other abnormal glucose] 01-28-2023 Episodic Disorders of lipid metabolism (4 sources) Mixed hyperlipidemia; Translations: [Mixed hyperlipidemia] Onset: 06-28-2024 Chronic Disorders of teeth and jaw (1 source) Toothache; Translations: [Other specified disorders of teeth and supporting structures] 03-30-2023 Episodic Essential hypertension (3 sources) Essential hypertension; Translations: [Essential (primary) hypertension] Chronic Mood disorders (20 sources) Depressive disorder; Translations: [Depression] 07-16-2020 Chronic Mood disorders (1 source) Mood disorders; Translations: [Anxiety and depression] Onset: 02-03-2024 Nonspecific chest pain (3 sources) Chest discomfort; Translations: [Other chest pain] 06-14-2023 Episodic Nutritional deficiencies (3 sources) Vitamin D deficiency; Translations: [Vitamin D deficiency, unspecified] Chronic Nutritional deficiencies (2 sources) Cobalamin deficiency; Translations: [Deficiency of other specified B group vitamins] Onset: 09-13-2024 05-04-2024 Episodic Osteoarthritis (2 sources) Arthritis of hand; Translations: [Primary osteoarthritis, unspecified hand] Chronic Other aftercare (10 sources) Patient encounter status; Translations: [Other long term care pharmacist (current) drug therapy] Episodic Other circulatory disease (2 sources) Low blood pressure; Translations: [Hypotension, unspecified] 04-20-2021 Episodic Other diseases of kidney and ureters (3 sources) Abnormal renal function; Translations: [Disorder of kidney and ureter, unspecified] 01-28-2023 Episodic Other ear and sense organ disorders (3 sources) Hearing loss; Translations: [Other specified hearing loss, unspecified ear] 07-19-2024 Chronic Other ear and sense organ disorders (4 sources) Sensorineural hearing loss, bilateral; Translations: [Sensorineural hearing loss, bilateral] Onset: 10-24-2024 10-24-2024 Chronic Other ear and sense organ disorders (1 source) Sensorineural hearing loss, bilateral; Translations: [Sensorineural hearing loss, bilateral] Onset: 10-24-2024 Chronic Other ear and sense organ disorders (1 source) Other specified hearing loss, unspecified ear; Translations: [Other specified hearing loss, unspecified ear] Onset: 10-24-2024 Chronic Other ear and sense organ disorders (6 sources) Bilateral tinnitus; Translations: [Tinnitus, bilateral] Onset: 10-24-2024 07-14-2024 Episodic Other ear and sense organ disorders (1 source) Tinnitus, bilateral; Translations: [Tinnitus, bilateral] Onset: 10-24-2024 Episodic Other eye disorders (1 source) Bilateral vitreous floaters; Translations: [Other vitreous opacities, bilateral] Chronic Other eye disorders (1 source) Disorder of lacrimal gland; Translations: [Dry eye syndrome of bilateral lacrimal glands] Episodic Other lower respiratory disease (2 sources) Acute lower respiratory tract infection; Translations: [Unspecified acute lower respiratory infection] 02-27-2022 Episodic Other lower respiratory disease (4 sources) Dyspnea on exertion; Translations: [Other forms of dyspnea] 12-24-2022 Episodic Other lower respiratory disease (1 source) Dyspnea; Translations: [Dyspnea, unspecified] 06-14-2023 Episodic Other lower respiratory disease (1 source) Other forms of dyspnea; Translations: [Other respiratory abnormalities] 06-10-2023 Episodic Other nervous system disorders (7 sources) Walking disability; Translations: [Difficulty in walking, not elsewhere classified] Chronic Other nervous system disorders (2 sources) Metabolic encephalopathy; Translations: [Metabolic encephalopathy] 04-20-2021 Chronic Other nervous system disorders (2 sources) Difficulty in walking, not elsewhere classified; Translations: [Ambulatory dysfunction] Onset: 06-03-2023 Chronic Other nervous system disorders (2 sources) Other chronic pain; Translations: [Chronic bilateral low back pain with sciatica, sciatica laterality unspecified] Onset: 06-03-2023 Chronic Other non-traumatic joint disorders (2 sources) Pain in right knee; Translations: [Pain in joint, lower leg] 06-02-2023 Episodic Other nutritional; endocrine; and metabolic disorders (2 sources) Morbid obesity; Translations: [Morbid (severe) obesity due to excess calories] Chronic Other nutritional; endocrine; and metabolic disorders (1 source) Morbid (severe) obesity due to excess calories; Translations: [Morbid obesity] 06-10-2023 Chronic Residual codes; unclassified (20 sources) Obstructive sleep apnea syndrome; Translations: [Obstructive sleep apnea (adult) (pediatric)] 07-16-2020 Chronic Residual codes; unclassified (20 sources) Sleep related hypoxemia; Translations: [Sleep related hypoventilation in conditions classified elsewhere] Onset: 10-17-2020 10-17-2020 Chronic Residual codes; unclassified (1 source) Obstructive sleep apnea (adult) (pediatric); Translations: [Obstructive sleep apnea syndrome] Onset: 07-16-2020 Chronic Residual codes; unclassified (1 source) History of clinical finding in subject; Translations: [Personal history of other medical treatment] Episodic Residual codes; unclassified (4 sources) Insomnia; Translations: [Insomnia, unspecified] Episodic Residual codes; unclassified (1 source) Edema of hand; Translations: [Localized edema] Episodic Respiratory failure; insufficiency; arrest (adult) (2 sources) Acute respiratory failure; Translations: [Acute respiratory failure with hypoxia] 04-20-2021 Episodic Septicemia (except in labor) (4 sources) Septic shock; Translations: [Sepsis, unspecified organism] 01-22-2023 Episodic Spondylosis; intervertebral disc disorders; other back problems (11 sources) Arthritis of spine; Translations: [Spondylosis without myelopathy or radiculopathy, lumbosacral region] Onset: 06-03-2023 Chronic Spondylosis; intervertebral disc disorders; other back problems (11 sources) Chronic low back pain; Translations: [Chronic low back pain, unspecified back pain laterality, unspecified whether sciatica present] Onset: 06-03-2023 Episodic Thyroid disorders (20 sources) Hypothyroidism; Translations: [Hypothyroidism, unspecified] Onset: 07-16-2020 Chronic Unclassified (1 source) Medication Problem Onset: 08-17-2024 Unclassified (1 source) Acute cough; Translations: [Acute cough] Onset: 06-28-2024 Urinary tract infections (3 sources) Pyelonephritis; Translations: [Tubulo-interstitial nephritis, not specified as acute or chronic] Episodic Past or Other Problems Problem Classification Problem Date Documented Date Episodic/Chronic Conditions associated with dizziness or vertigo (20 sources) Vertigo; Translations: [Dizziness and giddiness] Onset: 07-16-2020 07-16-2020 Episodic Fluid and electrolyte disorders (4 sources) Lactic acidosis; Translations: [Lactic acidosis] Onset: 07-14-2024 04-20-2021 Episodic Malaise and fatigue (3 sources) Fatigue; Translations: [Other fatigue] Onset: 02-03-2024 02-03-2024 Episodic Other connective tissue disease (2 sources) Other symptoms and signs involving the musculoskeletal system; Translations: [Other musculoskeletal symptoms referable to limbs] Onset: 06-28-2024 05-18-2024 Episodic Other diseases of kidney and ureters (1 source) Disorder of kidney and ureter, unspecified; Translations: [Function kidney decreased] Onset: 05-21-2025 Episodic Other lower respiratory disease (1 source) Wheezing; Translations: [Wheezing] Onset: 06-28-2024 Episodic Other screening for suspected conditions (not mental disorders or infectious disease) (3 sources) Electrocardiogram abnormal; Translations: [Abnormal electrocardiogram [ECG] [EKG]] Onset: 02-03-2024 06-10-2023 Episodic Unclassified (1 source) Patient encounter status 05-09-2024 Results Test Name Value Interpretation Reference Range Facility CNOVon 10-24-2024 CNOV Office Visit (OTOLST ) BURRELLJILLIAN EPPS ([id number]) 1960 F Date Time Provider Department 10/24/24 2:40 PM DONI CORONADO During your visit today, we recorded the following information about you: Doni Coronado PA-C 10/24/2024 2:57 PM Signed [facility] [place] [facility] NOTE CC: Jillian Pulliamton is a 64 year old female who is seen at the request of Angelika Wilson APRN, CNP for evaluation of Dizziness and Tinnitus, bilateral. My findings and recommendations will be communicated to the referring provider via the shared electronic medical record. ASSESSMENT: Dizziness Tinnitus, bilateral Sensorineural hearing loss, bilateral Vertigo PLAN: - Discussed results of hearing test with patient; all patient questions answered - Annual hearing test, avoidance of noise exposure, hearing protection as needed, discontinue Qtip use, no foreign objects in ears - Educated patient on tinnitus and conservative management options; patient education handout provided - Discussed benefits of Vestibular PT, Vestibular Test Battery, consult to Neurology, close observation and follow up; patient will inquire about Vestibular PT/Rehab at assisted living facility - Advised patient to maintain dizzy diary to further characterize symptoms including precipitating events, aggravating factors, frequency, duration, intensity - Advised patient to maintain healthy lifestyle including balanced diet, daily exercise and activity, routine sleep schedule, adequate oral hydration - Advised patient on red flag warning signs, symptoms that warrant immediate evaluation in ER - Follow up in 12 months with hearing test; sooner if clinically indicated Doni Coronado PA-C [facility] HPI: 64 year old female presents to clinic for evaluation of Dizziness and Tinnitus, bilateral. Patient reports longstanding tinnitus, bilateral, for years. Patient describes tinnitus as like air blowing through my ears white noise, and occasional ringing. Patient denies pulsatile tinnitus. With regards to hearing, patient denies changes in hearing or concern for hearing loss. Patient denies history of ear infections, PE tubes, previous ear surgeries. 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 Patient endorses family history of hearing loss, paternal grandmother and father. Patient also reports 10+ years of dizziness, vertigo. Patient initially assumed related to anxiety and depression, controlled with citalopram. Patient describes bouts of room-spinning vertigo, nausea typically without precipitating events and vary in frequency, duration, and intensity. Patient recalls worst episode while watching NASCAR on large TV and rocking on chair triggered severe vertigo, nausea, vomiting. Patient reports since February 2024, onset of lightheaded float sensation different than above symptoms. Patient denies dizziness, vertigo managed with meclizine. Patient denies personal or family history of Meniere's. Patient denies history of headaches, migraines. Patient denies history of head or neck trauma. Hearing test 10/24/2024: IMPRESSIONS RIGHT EAR: Sensorineural hearing loss. LEFT EAR: Sensorineural hearing loss. Comparison of today's results with previous test results : RIGHT EAR: No previous results available LEFT EAR: No previous results available NOTE: A decrease of 20 dB HL at any one test frequency, a decrease of 10 dB HL at any two adjacent test frequencies, or a loss of response at three consecutive frequencies where responses were previously obtained is considered a significant change per LORENA 1994 guidelines. AUDIOLOGIC EVALUATION Following is a brief interpretation of the obtained findings from the audiologic evaluation. Refer to the Auditory Test Record for complete audiometric results. The patient was counseled about the test findings and appropriate audiologic recommendations were made. SUMMARY: See procedures tab for audiometric results. OTOSCOPY RIGHT EAR: Otoscopic inspection revealed ear canal was clear. LEFT EAR: Otoscopic inspection revealed ear canal was clear. TYMPANOMETRY Description of procedure: This test is an objective evaluation of middle ear function. CPT code: 03205 RIGHT EAR: Normal ME function. LEFT EAR: Normal ME function. ACOUSTIC REFLEXES Description of procedure: This test is an objective measure of auditory and facial nerve pathways. CPT code: 99574, 87403 RIGHT EAR PROBE EAR: (ipsi right stimulus ear; contralateral left stimulus ear): Acoustic Reflex Pattern Did not test. Acoustic Reflex Decay (left stimulus ear): Did not test. LEFT EAR PROBE EAR: (ipsi left stimulus ear; contralateral right stimulus ear): Acoustic Reflex Pattern Did not test. Acoust (more content not included)... Normal [facility] Office Visit (OTAUST ) JILLIAN BURRELL ([id number]) 1960 F Date Time Provider Department 10/24/24 1:30 PM RUPALI MERRITT During your visit today, we recorded the following information about you: Rupali Merritt AUD 10/24/2024 1:58 PM Signed [facility] [place] AUDIOLOGIC EVALUATION REPORT Name: Jillian Burrell [facility]#: [id number] Date of Service: 10/24/2024 Date of : 1960 Age: [age] year old Referred by: Doni Coronado PA-C [id number] [id number] Referred for: Evaluation of suspected change in hearing, tinnitus, or balance. Referral documented: In an order in [facility]. Patient's major complaints: Tinnitus in both ears, Dizziness/vertigo/imbal jacqueline Claudiolyubov Aldrich Burrell, a 64 year old female, was seen today for an initial audiologic evaluation at the request of Doni Coronado PA-C prior to appointment with him. The following history was obtained by way of Jillian Burrell's previous medical record and direct patient interview: Today, patient reported: Hearing: Denied. Tinnitus: Patient reports bilateral tinnitus that she describes as wind blowing through at all times. Dizziness: Patient has been suffering from vertigo for 10+ years. It varies in severity and she has had it to the point of vomiting and going to the ED. She said it is triggered by motion such as riding in a car. It is also triggered by flashing lights. Otalgia: Denied. Aural fullness/pressure: Denied. History of ear infections: Denied. History of otologic surgeries: Denied. Noise exposure: Patient worked in a [employer] for about 9 years and there were some loud machines present. Other Concerns: Denied. IMPRESSIONS RIGHT EAR: Sensorineural hearing loss. LEFT EAR: Sensorineural hearing loss. Comparison of today's results with previous test results : RIGHT EAR: No previous results available LEFT EAR: No previous results available NOTE: A decrease of 20 dB HL at any one test frequency, a decrease of 10 dB HL at any two adjacent test frequencies, or a loss of response at three consecutive frequencies where responses were previously obtained is considered a significant change per LORENA 1994 guidelines. AUDIOLOGIC EVALUATION Following is a brief interpretation of the obtained findings from the audiologic evaluation. Refer to the Auditory Test Record for complete audiometric results. The patient was counseled about the test findings and appropriate audiologic recommendations were made. SUMMARY: See procedures tab for audiometric results. OTOSCOPY RIGHT EAR: Otoscopic inspection revealed ear canal was clear. LEFT EAR: Otoscopic inspection revealed ear canal was clear. TYMPANOMETRY Description of procedure: This test is an objective evaluation of middle ear function. CPT code: 09197 RIGHT EAR: Normal ME function. LEFT EAR: Normal ME function. ACOUSTIC REFLEXES Description of procedure: This test is an objective measure of auditory and facial nerve pathways. CPT code: 02755, 55365 RIGHT EAR PROBE EAR: (ipsi right stimulus ear; contralateral left stimulus ear): Acoustic Reflex Pattern Did not test. Acoustic Reflex Decay (left stimulus ear): Did not test. LEFT EAR PROBE EAR: (ipsi left stimulus ear; contralateral right stimulus ear): Acoustic Reflex Pattern Did not test. Acoustic Reflex Decay (right stimulus ear): Did not test. PURE TONE AUDIOMETRY AND SPEECH TESTING Description of procedure: This test is an objective evaluation hearing sensitivity via air and bone conduction and speech recognition testing. CPT code: 47376 RIGHT EAR: Hearing Sensitivity: Normal hearing from 250-500 Hz sloping to a mild sensorineural hearing loss from 7130-0965 Hz with a moderate unspecified loss at 8000 Hz. Word Recognition Score: Excellent (90-100%). WRS is consistent with hearing sensitivity. Words were presented at 65 dB HL is above (greater than or equal to 60 dB HL) intensity level for average conversational speech. The NU-6 Ordered by Difficulty Word List (10 words) was used for testing. Contralateral masking was used in the non-test ear. LEFT EAR: Hearing Sensitivity: Normal hearing from 250-500 Hz sloping to a mild sensorineural hearing loss from 6954-3933 Hz with a moderate unspecified loss at 8000 Hz. Word Recognition Score: Excellent (90-100%). WRS is consistent with hearing sensitivity. Words were presented at 70 dB HL which is above (greater than or equal to 60 dB HL) intensity level for average conversational speech. The NU-6 Ordered by Difficulty Word List (10 words) was used for testing. Contralateral masking was used in the non-test ear. RECOMMENDATIONS * Continue medical follow-up with Doni Coronado PA-C. * Return for re-evaluation as medically indicated or sooner if change is noted. * Patient was counseled to maintain a sound enriched environment to a (more content not included)... Normal [facility] HEARING TEST/AUDIOGRAMon [facility] CBC W/Diff, Automatedon Absolute Lymph 2.29 X10 3/uL Normal 0.83-4.51 [facility] Comment on above: Order Comment: 112 Performed By: #### L 500.4100, L100.0100, L501.9520, L500.4050, L503.0106, L506.1001 #### [facility] [address] [place], [address] Absolute Neut 1.4 X10 3/uL Low 2.0-7.7 [facility] Comment on above: Order Comment: 112 Performed By: #### L 500.4100, L100.0100, L501.9520, L500.4050, L503.0106, L506.1001 #### [facility] [address] [place], [address] Basophils/100 WBC (Bld) 0.9 % Normal 0-1 [facility] Comment on above: Order Comment: 112 Performed By: #### L 500.4100, L100.0100, L501.9520, L500.4050, L503.0106, L506.1001 #### [facility] [address] [place], [address] Eosinophils/100 WBC (Bld) 4.4 % Normal 0-5 [facility] Comment on above: Order Comment: 112 Performed By: #### L 500.4100, L100.0100, L501.9520, L500.4050, L503.0106, L506.1001 #### [facility] [address] [place], [address] Erythrocyte distribution width (RBC) [Ratio] 12.6 % Normal 11.6-14.6 [facility] Comment on above: Order Comment: 112 Performed By: #### L 500.4100, L100.0100, L501.9520, L500.4050, L503.0106, L506.1001 #### [facility] [address] [place], [address] Hematocrit (Bld) [Volume fraction] 39.5 % Normal 37-47 [facility] Comment on above: Order Comment: 112 Performed By: #### L 500.4100, L100.0100, L501.9520, L500.4050, L503.0106, L506.1001 #### [facility] [address] [place], [address] Hemoglobin (Bld) [Mass/Vol] 13.0 g/dL Normal 12.0-15.0 [facility] Comment on above: Order Comment: 112 Performed By: #### L 500.4100, L100.0100, L501.9520, L500.4050, L503.0106, L506.1001 #### [facility] [address] [place], [address] IG% 0.700 Normal 0.0-0.9 [facility] Comment on above: Order Comment: 112 Result Comment: IG% - Immature Granulocytes (promyelocytes, myelocytes and metamyelocytes) > 1% indicates that a LEFT SHIFT is Present. Performed By: #### L 500.4100, L100.0100, L501.9520, L500.4050, L503.0106, L506.1001 #### [facility] [address] [place], [address] Lymphocytes/100 WBC (Bld) 52.5 % High 19-41 [facility] Comment on above: Order Comment: 112 Performed By: #### L 500.4100, L100.0100, L501.9520, L500.4050, L503.0106, L506.1001 #### [facility] [address] [place], [address] MCH (RBC) [Entitic mass] 30.4 pg Normal 27.0-32.0 [facility] Comment on above: Order Comment: 112 Performed By: #### L 500.4100, L100.0100, L501.9520, L500.4050, L503.0106, L506.1001 #### [facility] [address] [place], [address] MCHC (RBC) [Mass/Vol] 32.9 g/dL Normal 32-36 [facility] Comment on above: Order Comment: 112 Performed By: #### L 500.4100, L100.0100, L501.9520, L500.4050, L503.0106, L506.1001 #### [facility] [address] [place], [address] MCV (RBC) [Entitic vol] 92.3 fL Normal 81-99 [facility] Comment on above: Order Comment: 112 Performed By: #### L 500.4100, L100.0100, L501.9520, L500.4050, L503.0106, L506.1001 #### [facility] [address] [place], [address] Monocytes/100 WBC (Bld) 9.6 % Normal 0-10 [facility] Comment on above: Order Comment: 112 Performed By: #### L 500.4100, L100.0100, L501.9520, L500.4050, L503.0106, L506.1001 #### [facility] [address] [place], [address] Neutrophils/100 WBC (Bld) 31.9 % Low 47-70 [facility] Comment on above: Order Comment: 112 Performed By: #### L 500.4100, L100.0100, L501.9520, L500.4050, L503.0106, L506.1001 #### [facility] [address] [place], [address] Nucleated RBC (Bld) [#/Vol] 0 10*3/uL Normal 0-5 [facility] Comment on above: Order Comment: 112 Performed By: #### L 500.4100, L100.0100, L501.9520, L500.4050, L503.0106, L506.1001 #### [facility] [address] [place], [address] Platelet mean volume (Bld) [Entitic vol] 9.9 fL Normal 6.2-12.0 [facility] Comment on above: Order Comment: 112 Performed By: #### L 500.4100, L100.0100, L501.9520, L500.4050, L503.0106, L506.1001 #### [facility] [address] [place], [address] Platelets (Bld) [#/Vol] 198 10*3/uL Normal 150-450 [facility] Comment on above: Order Comment: 112 Performed By: #### L 500.4100, L100.0100, L501.9520, L500.4050, L503.0106, L506.1001 #### [facility] [address] [place], [address] RBC (Bld) [#/Vol] 4.28 10*6/uL Normal 4.2-5.4 [facility] Comment on above: Order Comment: 112 Performed By: #### L 500.4100, L100.0100, L501.9520, L500.4050, L503.0106, L506.1001 #### [facility] [address] [place], [address] RDW SD 42.5 fl Normal 35.1-43.9 [facility] Comment on above: Order Comment: 112 Performed By: #### L 500.4100, L100.0100, L501.9520, L500.4050, L503.0106, L506.1001 #### [facility] [address] [place], [address] WBC (Bld) [#/Vol] 4.4 10*3/uL Normal 4.4-11.0 [facility] Comment on above: Order Comment: 112 Performed By: #### L 500.4100, L100.0100, L501.9520, L500.4050, L503.0106, L506.1001 #### [facility] [address] [place], [address] Comprehensive Metabolic Prof ilon 10-11-2024 Albumin [Mass/Vol] 3.6 g/dL Normal 3.4-4.8 [facility] Comment on above: Order Comment: 112 Performed By: #### L 500.4100, L100.0100, L501.9520, L500.4050, L503.0106, L506.1001 #### [facility] [address] [place], [address] Albumin/Globulin [Mass ratio] 1.1 {ratio} Normal 0.9-2.4 [facility] Comment on above: Order Comment: 112 Performed By: #### L 500.4100, L100.0100, L501.9520, L500.4050, L503.0106, L506.1001 #### [facility] [address] [place], [address] ALK PHOS 50 U/L Normal 35-104 [facility] Comment on above: Order Comment: 112 Performed By: #### L 500.4100, L100.0100, L501.9520, L500.4050, L503.0106, L506.1001 #### [facility] [address] [place], [address] ALT [Catalytic activity/Vol] 13 U/L Normal <=34 [facility] Comment on above: Order Comment: 112 Performed By: #### L 500.4100, L100.0100, L501.9520, L500.4050, L503.0106, L506.1001 #### [facility] [address] [place], [address] AST [Catalytic activity/Vol] 17 U/L Normal <=31 [facility] Comment on above: Order Comment: 112 Performed By: #### L 500.4100, L100.0100, L501.9520, L500.4050, L503.0106, L506.1001 #### [facility] [address] [place], [address] Bilirubin [Mass/Vol] 0.38 mg/dL Normal 0.00-1.30 [facility] Comment on above: Order Comment: 112 Performed By: #### L 500.4100, L100.0100, L501.9520, L500.4050, L503.0106, L506.1001 #### [facility] [address] [place], [address] BUN/CRE 20.0 RATIO Normal 10-20 [facility] Comment on above: Order Comment: 112 Performed By: #### L 500.4100, L100.0100, L501.9520, L500.4050, L503.0106, L506.1001 #### [facility] [address] [place], [address] Calcium [Mass/Vol] 9.2 mg/dL Normal 7.6-11.0 [facility] Comment on above: Order Comment: 112 Performed By: #### L 500.4100, L100.0100, L501.9520, L500.4050, L503.0106, L506.1001 #### [facility] [address] [place], [address] Chloride [Moles/Vol] 103 mmol/L Normal 98-108 [facility] Comment on above: Order Comment: 112 Performed By: #### L 500.4100, L100.0100, L501.9520, L500.4050, L503.0106, L506.1001 #### [facility] [address] [place], [address] CO2 [Moles/Vol] 24.6 mmol/L Normal 21.0-32.0 [facility] Comment on above: Order Comment: 112 Performed By: #### L 500.4100, L100.0100, L501.9520, L500.4050, L503.0106, L506.1001 #### [facility] [address] [place], [address] Creatinine [Mass/Vol] 0.97 mg/dL Normal 0.70-1.20 [facility] Comment on above: Order Comment: 112 Performed By: #### L 500.4100, L100.0100, L501.9520, L500.4050, L503.0106, L506.1001 #### [facility] [address] [place], [address] GAP 9 Normal 5-15 [facility] Comment on above: Order Comment: 112 Performed By: #### L 500.4100, L100.0100, L501.9520, L500.4050, L503.0106, L506.1001 #### [facility] [address] [place], [address] GFR/1.73 sq M.predicted among non-blacks MDRD (S/P/Bld) [Vol rate/Area] 65 mL/min/{1.73_m2} Normal >60 [facility] Comment on above: Order Comment: 112 Result Comment: mL/m in/1.73m2 CKD-EPI Creatinine Equation (2020) Performed By: #### L 500.4100, L100.0100, L501.9520, L500.4050, L503.0106, L506.1001 #### [facility] [address] [place], [address] Globulin (S) [Mass/Vol] 3.2 g/dL Normal 2.2-4.2 [facility] Comment on above: Order Comment: 112 Performed By: #### L 500.4100, L100.0100, L501.9520, L500.4050, L503.0106, L506.1001 #### [facility] [address] [place], [address] Glucose [Mass/Vol] 108 mg/dL High 70-99 [facility] Comment on above: Order Comment: 112 Performed By: #### L 500.4100, L100.0100, L501.9520, L500.4050, L503.0106, L506.1001 #### [facility] [address] [place], [address] Potassium [Moles/Vol] 4.2 mmol/L Normal 3.3-5.1 [facility] Comment on above: Order Comment: 112 Performed By: #### L 500.4100, L100.0100, L501.9520, L500.4050, L503.0106, L506.1001 #### [facility] [address] [place], [address] Sodium [Moles/Vol] 137 mmol/L Normal 133-145 [facility] Comment on above: Order Comment: 112 Performed By: #### L 500.4100, L100.0100, L501.9520, L500.4050, L503.0106, L506.1001 #### [facility] [address] [place], [address] T PROT 6.8 g/dL Normal 5.9-8.4 [facility] Comment on above: Order Comment: 112 Performed By: #### L 500.4100, L100.0100, L501.9520, L500.4050, L503.0106, L506.1001 #### [facility] [address] [place], [address] Urea nitrogen [Mass/Vol] 20 mg/dL High 4-19 [facility] Comment on above: Order Comment: 112 Performed By: #### L 500.4100, L100.0100, L501.9520, L500.4050, L503.0106, L506.1001 #### [facility] [address] [place], [address] Lipid Profileon 10-11-2024 CHOL:HDL 4.92 Normal [facility] Comment on above: Order Comment: 112 Performed By: #### L 500.4100, L100.0100, L501.9520, L500.4050, L503.0106, L506.1001 #### [facility] [address] [place], [address] Cholesterol [Mass/Vol] 186 mg/dL Normal <=200 [facility] Comment on above: Order Comment: 112 Result Comment: Chol esterol level, Desirable <200 mg/dL Borderline high cholesterol 200-239 mg/dL High cholesterol >=240 mg/dL Recommendations of the NCEP Adult Treatment Panel for the following risk-cutoff thresholds for the [place] population. Performed By: #### L 500.4100, L100.0100, L501.9520, L500.4050, L503.0106, L506.1001 #### [facility] [address] [place], [address] Cholesterol in HDL [Mass/Vol] 38 mg/dL Low [facility] Comment on above: Order Comment: 112 Result Comment: Ame onal Cholesterol Education Program (NCEP) guidelines: <40 mg/dL: Low HDL-cholesterol (major risk factor for CHD) >= 60 mg/dL: High HDL-cholesterol (negative risk factor for CHD) HDL-cholesterol is affected by a number of factors, e.g. smoking, exercise, hormones, sex and age. Performed By: #### L 500.4100, L100.0100, L501.9520, L500.4050, L503.0106, L506.1001 #### [facility] [address] [place], [address] Cholesterol in LDL [Mass/Vol] 124 mg/dL Normal [facility] Comment on above: Order Comment: 112 Result Comment: Bord ugshgn=309-672 mg/dL Higher Lded=047 mg/dL or greater Friedwald Equation for LDL-C Performed By: #### L 500.4100, L100.0100, L501.9520, L500.4050, L503.0106, L506.1001 #### [facility] [address] [place], [address] Cholesterol in VLDL [Mass/Vol] 25 mg/dL Normal 5-40 [facility] Comment on above: Order Comment: 112 Performed By: #### L 500.4100, L100.0100, L501.9520, L500.4050, L503.0106, L506.1001 #### [facility] [address] [place], [address] Triglyceride [Mass/Vol] 123 mg/dL Normal [facility] Comment on above: Order Comment: 112 Result Comment: The drugs N-Acetylcysteine and Metamizole may falsely depress this assay. Normal range: <150 mg/dL Borderline High: 150-199 mg/dL High: 200-499 mg/dL Very High: >500 mg/dL Performed By: #### L 500.4100, L100.0100, L501.9520, L500.4050, L503.0106, L506.1001 #### [facility] [address] [place], [address] Thyroid Stim Hormone (TSH)on 10-11-2024 TSH 2.380 uIU/mL Normal 0.300-4.200 [facility] Comment on above: Order Comment: 112 Performed By: #### L 500.4100, L100.0100, L501.9520, L500.4050, L503.0106, L506.1001 #### [facility] [address] [place], [address] Vitamin B12on 10-11-2024 Cobalamin (Vitamin B12) [Mass/Vol] 560 pg/mL Normal 180-914 [facility] Comment on above: Order Comment: 112 Performed By: #### L 500.4100, L100.0100, L501.9520, L500.4050, L503.0106, L506.1001 #### [facility] [address] [place], [address] Vitamin D,25 Hydroxyon 10-11 Vitamin D 25-OH 31.0 ng/mL Normal 30-100 [facility] Comment on above: Order Comment: 112 Result Comment: Dodie min D Status Deficiency: <20 ng/mL (50nmol/L) Insufficiency: 20-30 ng/mL (50-75 nmol/L) Sufficiency: 30-100 ng/mL (75-250 nmol/L) Toxicity: >100 ng/mL (>250 nmol/L) Performed By: #### L 500.4100, L100.0100, L501.9520, L500.4050, L503.0106, L506.1001 #### [facility] [address] [place], [address] CNOVon 09-13-2024 CNOV Office Visit (INTMWS ) JILLIAN BURRELL ([id number]) 1960 F Date Time Provider Department 09/13/24 6:00 PM ANGELIKA WILSON During your visit today, we recorded the following information about you: Pulse Respiration Blood pressure Weight 88/minute 16/minute 122/84 140.2 kg Angelika Wilson APRN.CNP 09/13/2024 7:02 PM Signed CC: Patient presents with: Recheck: Follow up assisted living forms SHANNAN Burrell is a 64 year old female who presents today for needing updated forms to get into assisted living. Had done this once before but was almost 3 months ago so [facility] requiring more updated visit. Recording using [employer] software for draft documentation of the visit was discussed with the patient/authorized career services representative; all questions welcomed and answered. Patient/authorized career services representative agreed to proceed Hypothyroidism: - Taking levothyroxine 88 mcg daily. - Denies abnormal changes in weight or energy levels. Depression: - Well-controlled with citalopram 1 tablet daily. - Denies thoughts of self-harm or harm to others. -sleeping well and denies changes in appetite Chronic Vertigo: - Managed with meclizine. - Missed a recent ENT appointment for a dizzy test, rescheduled for next week. Sleep Apnea: - Does not use CPAP due to discomfort and feeling of smothering. Chronic Low Back Pain: - Uses a cane for ambulation and a wheelchair for long distances. - Looking forward to utilizing physical therapy for improving mobility and pain when she gets to assisted living Uses gabapentin and meloxicam for pain. Right Leg Pain: - Intermittent sharp pain in the right thigh, x2-3 weeks. - Described as a hot poker sensation lasting ~2 seconds. - Aggravated by walking and twisting movements, particularly when getting out of the car. - Denies known trauma, weakness, or loss of sensation. - Suspects pain may be related to sitting in a recliner with a cushion on her lap. - Denies pain to touch or redness in the area. REVIEW OF SYSTEMS See HPI PAST MEDICAL HISTORY Diagnosis Date Depression Generalized anxiety disorder Hiatal hernia Hypothyroid Kidney stones Obstructive sleep apnea syndrome just started Vertigo PAST SURGICAL HISTORY Procedure Laterality Date HEEL-CALCANEUS Bilateral PAST SURGICAL HISTORY OF kidney stone REMOVAL GALLBLADDER 1994 ALLERGIES Augmentin [Amoxicillin-Pot Clavulanate], Codeine, Oxycodone, and Zanaflex [Tizanidine] MEDICATIONS gabapentin (NEURONTIN) 400 mg capsule Take 1 capsule by mouth two times a day. (MAY MAKE DROWSY) meloxicam (MOBIC) 15 mg tablet TAKE 1 TABLET DAILY WITH FOOD citalopram (CELEXA) 40 mg tablet Take 1 tablet by mouth once daily. Cyanocobalamin 1,000 mcg TbER Take 1 tablet by mouth once daily. levothyroxine (SYNTHROID) 88 mcg tablet Take 1 tablet by mouth once daily. benzonatate (TESSALON PERLE) 100 mg capsule Take 1 capsule by mouth three times a day as needed. Walker [facility] Standard Walker fluticasone (FLONASE) 50 mcg/actuation nasal spray Use 2 Sprays in each nostril once daily as needed for cold/allergy symptoms. Rinse mouth after use. ergocalciferol 50,000 unit capsule (VITAMIN D2, DRISDOL) Take 1 capsule by mouth one time a week. meclizine (ANTIVERT) 25 mg tab TAKE 1 TABLET THREE TIMES A DAY NEEDED FOR DIZZINESS PEG 400-propylene glycol (SYSTANE ULTRA) 0.4-0.3 % ophthalmic solution Use 1 Drop in both eyes twice daily. acetaminophen (TYLENOL) 500 mg tablet Take 1-2 tablets by mouth three times daily. FAMILY HISTORY Problem Relation Age of Onset Diabetes Mother Glaucoma Mother Macular Degen Mother Diabetes Father No Known Problems Sister Social History Tobacco Use Smoking status: Never Smokeless tobacco: Never Vaping Use Vaping status: Never Used Substance Use Topics Alcohol use: Not Currently Drug use: Never PHYSICAL EXAM BP 122/84 Pulse 88 Resp 16 Wt (!) 140.2 kg (309 lb) SpO2 96% BMI 48.40 kg/m? General Appearance: well appearing, in no acute distress, alert Skin: Skin color, texture, turgor normal for age; Eyes: conjunctiva pink and moist, no icterus, sclera white, non-injected Lungs: Lungs clear to auscultation. No wheezing, rhonchi, rales. Heart: RRR without murmur, gallop, or rubs. No ectopy BLE Extremities: No deformities, edema, skin discoloration, or tenderness. Health maintenance reviewed with patient: Cervical Cancer Screening Never done Mammogram Screening Never done Colorectal Cancer Screening Never done Medicare Advantage Annual Wellness Visit Never done DTaP,Tdap,Td Vaccine(1 - Tdap) due on 02/02/2025 RSV Vaccine(1 - Risk 60-74 years 1-dose series) due on 02/02/2025 Hepatitis C Screening due on 02/02/2025 HIV Screening due on 02/02/2025 Shingrix Vaccine(1 of 2) due on 02/02/2025 Pneumococcal Vaccine: 50+(1 of 1 - PCV) due on 01/09 (more content not included)... [facility]URRELL ([id number]) 1960 F Date Time Provider Department 08/07/24 ANGELIKA WILSON During your visit today, we recorded the following information about you: Ashvin Nagel RN 08/07/2024 4:52 PM Signed Patient reports at her appt with Angelika, on 06/28/24, Angelika said she would fax paperwork to [facility], so that patient could move there. Angelika was also going to fax the ov notes and demographics. Do not see paperwork in scanned documents. Reports [facility] has not received the paperwork. Pt was hoping to move in by the end of September. Asking office to please send paperwork to [facility]. Pt will call back tomorrow to check on this. Angelika Wilson APRN.MYA 08/17/2024 9:16 AM Signed Papers filled out and faxed end of june. appointment today to discuss further. Angelika Wilson APRN.D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 Allergies As of Date: 08/07/2024 Noted Allergy Reaction AUGMENTIN (AMOXICILLIN-POT CLAVUL*06/29/2023 8 - GI Upset Comments: Pt does not want to take medication again as it made her very sick. CODEINE 03/14/2020 9 - Itching OXYCODONE 07/31/2018 9 - Itching ZANAFLEX (TIZANIDINE) 06/29/2023 14 - Other: See Comments Comments: Made pt very anxious Date Reviewed: 07/14/2024 Reviewed by: Angelika Wilson APRN.D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 - Fully Assessed Reason for Visit: [facility] paperwork [Other] Prescriptions as of 08/17/2024 - gabapentin (NEURONTIN) 400 mg capsule TAKE 1 CAPSULE THREE TIMES A DAY WITH MEALS (MAY MAKE DROWSY) - citalopram (CELEXA) 20 mg tablet Take 1 tablet by mouth once daily. - Cyanocobalamin 1,000 mcg TbER Take 1 tablet by mouth once daily. - levothyroxine (SYNTHROID) 88 mcg tablet Take 1 tablet by mouth once daily. - meloxicam (MOBIC) 15 mg tablet TAKE 1 TABLET DAILY WITH FOOD - benzonatate (TESSALON PERLE) 100 mg capsule Take 1 capsule by mouth three times a day as needed. - Walker misc Standard Walker - fluticasone (FLONASE) 50 mcg/actuation nasal spray Use 2 Sprays in each nostril once daily as needed for cold/allergy symptoms. Rinse mouth after use. - ergocalciferol 50,000 unit capsule (VITAMIN D2, DRISDOL) Take 1 capsule by mouth one time a week. - meclizine (ANTIVERT) 25 mg tab TAKE 1 TABLET THREE TIMES A DAY NEEDED FOR DIZZINESS - PEG 400-propylene glycol (SYSTANE ULTRA) 0.4-0.3 % ophthalmic solution Use 1 Drop in both eyes twice daily. - acetaminophen (TYLENOL) 500 mg tablet Take 1-2 tablets by mouth three times daily. Problem List As Of Date 08/07/2024 Noted Resolved Kidney stones [N20.0] Hypothyroid [E05.90] Depression [F32.A] Vertigo [R42] Obstructive sleep apnea syndrome [G47.33] Hypoxemia associated with sleep [G47.36] 10/17/2020 Anxiety and depression [F41.9, F32.A] 02/03/2024 Encounter Status:Closed by ANGELIKA WILSON on 08/17/24 Normal [facility] Basic metabolic 2000 panelon 07-14-2024 Anion gap [Moles/Vol] 12 mmol/L Normal 8-15 [facility] Comment on above: Order Comment: Speci men Type: BLOOD SPECIMENOrdering Facility: [facility] Address: [address] [place] [address] Performed By: #### 2 4321-2 ####[facility] LABCLIA [id number] [place] [address] [place] Calcium [Mass/Vol] 9.8 mg/dL Normal 8.5-10.2 [facility] Comment on above: Order Comment: Speci men Type: BLOOD SPECIMENOrdering Facility: [facility] Address: [address] [id number] Performed By: #### 2 4321-2 ####[facility] LABCLIA [id number] [place] [address] [place] Chloride [Moles/Vol] 102 mmol/L Normal 98-107 [facility] Comment on above: Order Comment: Speci men Type: BLOOD SPECIMENOrdering Facility: [facility] Address: [address] [place], [place] [address] Performed By: #### 2 4321-2 ####[facility] LABCLIA [id number] [place] [id number] [place] CO2 [Moles/Vol] 25 mmol/L Normal 22-30 [facility] Comment on above: Order Comment: Speci men Type: BLOOD SPECIMENOrdering Facility: [facility] Address: [address] [place] [address] Performed By: #### 2 4321-2 ####[facility]IA [id number] [place] [address] [place] Creatinine [Mass/Vol] 0.96 mg/dL Normal 0.58-0.96 [facility] Comment on above: Order Comment: Speci men Type: BLOOD SPECIMENOrdering Facility: [facility] Address: [address] [place] [address] Performed By: #### 2 4321-2 ####[facility]IA [id number] [place] [address] [place] Creatinine and Glomerular filtration rate.predicted panel (S/P/Bld) 66 mL/min/1.73m??? Normal >=60 [facility] Comment on above: Order Comment: Speci men Type: BLOOD SPECIMENOrdering Facility: [facility] Address: [address] [place] [address] Result Comment: Elisa mated Glomerular Filtration Rate (eGFR) is calculated using the 2020 CKD-EPI creatinine equation. This equation utilizes serum creatinine, sex, and age as parameters. The creatinine assay has traceable calibration to isotope dilution-mass spectrometry. Refer to KDIGO guidelines for clinical interpretation. In patients with unstable renal function, e.g. those with acute kidney injury, the eGFR may not accurately reflect actual GFR. Performed By: #### 2 4321-2 ####[facility] LABCLIA [id number] [place] [id number] [place] Glucose [Mass/Vol] 92 mg/dL Normal 74-99 [facility] Comment on above: Order Comment: Rajat briones Type: BLOOD SPECIMENOrdering Facility: [facility] Address: [address] [place] [address] Result Comment: The [place] Diabetes Association (ADA) provides guidance for cutoff values for fasting glucose and random glucose. The ADA defines fasting as no caloric intake for at least 8 hours. Fasting plasma glucose results between 100 to 125 mg/dL indicate increased risk for diabetes (prediabetes). Fasting plasma glucose results greater than or equal to 126 mg/dL meet the criteria for diagnosis of diabetes. In the absence of unequivocal hyperglycemia, results should be confirmed by repeat testing. In a patient with classic symptoms of hyperglycemia or hyperglycemic crisis, random plasma glucose results greater than or equal to 200 mg/dL meet the criteria for diagnosis of diabetes. Reference: Standards of Medical Care in Diabetes 2016, [place] Diabetes Association. Diabetes Care. 2016.39(Suppl 1). Performed By: #### 2 4321-2 ####[facility]CLIA [id number] [place] [address] [place] Potassium [Moles/Vol] 4.5 mmol/L Normal 3.7-5.1 [facility] Comment on above: Order Comment: Rajat briones Type: BLOOD SPECIMENOrdering Facility: [facility] Address: [address] [place] [address] Performed By: #### 2 4321-2 ####[facility]CLIA [id number] [place] [id number] [place] Sodium [Moles/Vol] 139 mmol/L Normal 136-144 [facility] Comment on above: Order Comment: Rajat briones Type: BLOOD SPECIMENOrdering Facility: [facility] Address: [address] [place], [place] [id number] Performed By: #### 2 4321-2 ####[facility] LABCLIA [id number] [address] [address] [place] Urea nitrogen [Mass/Vol] 22 mg/dL High 7-21 [facility] Comment on above: Order Comment: Speci men Type: BLOOD SPECIMENOrdering Facility: [facility] Address: [address] [place] [address] Performed By: #### 2 4321-2 ####[facility] LABCLIA [id number] [place] [id number] [place] [address] [facility] CNOVon 07-14-2024 CNOV Office Visit (INTMWS ) ASHANTIJILLIAN Elinor ([id number]) 1960 F Date Time Provider Department 07/14/24 2:20 PM ANGELIKA WILSON INTPRITI During your visit today, we recorded the following information about you: Pulse Blood pressure Weight 70/minute 126/78 142 kg Angelika Wilson APRN.D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 07/14/2024 3:04 PM Signed CC: Patient presents with: Follow Up: Vertigo, ringing in ena ears HPI Jillian Pulliamton is a 64 year old female who presents today for ringing in her ears and dizziness. Recording using [employer] software for draft documentation of the visit was discussed with the patient/authorized career services representative; all questions welcomed and answered. Patient/authorized career services representative agreed to proceed Tinnitus: - Bilateral tinnitus described as a constant ringing, similar to post-concert ear ringing. - Present for many years exact duration unknown. Ready to have this evaluated. Floaty Sensation: - Persistent floaty sensation since around New Year, progressively worsening. - Described as an internal sensation of movement, distinct from previous vertigo episodes. - Occurs both when standing and sitting; exacerbated by reclining in a chair. - Denies falls, head trauma, vision changes, headaches, syncope, weakness, numbness, confusion, shortness of breath, palpitations, or chest pain. - Has an upcoming eye appointment. - did have increase in cymbalta around time of symptoms starting but also has been taking old gabapentin and unsure on expiration date. - History of vertigo, previously well-controlled. - Current floaty sensation differs from typical vertigo episodes, which usually require sitting down and are sometimes accompanied by nausea. - Taking meclizine for relief. Depression: - History of depression, previously managed with citalopram. - Recent increase in citalopram dosage to 40 mg in January. - Discontinued citalopram abruptly 3-4 weeks ago due to illness and difficulty refilling the prescription. - Noted increased emotional lability since discontinuation, including episodes of sobbing. - Prescription for citalopram was found to be ready at [facility] but was not picked up. - denies thoughts of harming self or others REVIEW OF SYSTEMS See HPI PAST MEDICAL HISTORY Diagnosis Date Depression Generalized anxiety disorder Hiatal hernia Hypothyroid Kidney stones Obstructive sleep apnea syndrome just started Vertigo PAST SURGICAL HISTORY Procedure Laterality Date HEEL-CALCANEUS Bilateral PAST SURGICAL HISTORY OF kidney stone REMOVAL GALLBLADDER 1994 ALLERGIES Augmentin [Amoxicillin-Pot Clavulanate], Codeine, Oxycodone, and Zanaflex [Tizanidine] MEDICATIONS Cyanocobalamin 1,000 mcg TbER Take 1 tablet by mouth once daily. levothyroxine (SYNTHROID) 88 mcg tablet Take 1 tablet by mouth once daily. meloxicam (MOBIC) 15 mg tablet TAKE 1 TABLET DAILY WITH FOOD benzonatate (TESSALON PERLE) 100 mg capsule Take 1 capsule by mouth three times a day as needed. Walker [facility] Standard Gaurav fluticasone (FLONASE) 50 mcg/actuation nasal spray Use 2 Sprays in each nostril once daily as needed for cold/allergy symptoms. Rinse mouth after use. ergocalciferol 50,000 unit capsule (VITAMIN D2, DRISDOL) Take 1 capsule by mouth one time a week. meclizine (ANTIVERT) 25 mg tab TAKE 1 TABLET THREE TIMES A DAY NEEDED FOR DIZZINESS acetaminophen (TYLENOL) 500 mg tablet Take 1-2 tablets by mouth three times daily. citalopram (CELEXA) 20 mg tablet Take 1 tablet by mouth once daily. gabapentin (NEURONTIN) 400 mg capsule TAKE 1 CAPSULE THREE TIMES A DAY WITH MEALS (MAY MAKE DROWSY) PEG 400-propylene glycol (SYSTANE ULTRA) 0.4-0.3 % ophthalmic solution Use 1 Drop in both eyes twice daily. FAMILY HISTORY Problem Relation Age of Onset Diabetes Mother Glaucoma Mother Macular Degen Mother Diabetes Father No Known Problems Sister Social History Tobacco Use Smoking status: Never Smokeless tobacco: Never Vaping Use Vaping status: Never Used Substance Use Topics Alcohol use: Not Currently Drug use: Never PHYSICAL EXAM BP 126/78 (BP Site: Right Arm, BP Position: Sitting, BP Cuff Size: Large Adult) Pulse 70 Wt (!) 142 kg (313 lb) SpO2 98% BMI 49.02 kg/m? General Appearance: well appearing, in no acute distress, alert Pysch: mood and affect broad and appropriate Eyes: PERRLA, EOM's intact, conjunctiva pink and moist, no icterus, sclera white, non-injected Ears: external ears normal to inspection and palpation, canals clear, Left tympanic membrane normal. , Right tympanic membrane normal Nose/sinus: Nares normal. Septum midline. Mucosa normal. No drainage., No sinus tenderness Neck: Thyroid normal size and symmetric without palpable nodules, Neck supple, No adenopathy Lymph nodes: No cervical lymphadenopathy and No supraclavicular lymphadenopathy Lungs: Lungs (more content not included)... Normal [facility] Basic metabolic 2000 panelon 06-28-2024 Anion gap [Moles/Vol] 13 mmol/L Normal 8-15 [facility] Comment on above: Order Comment: Speci men Type: BLOOD SPECIMENOrdering Facility: [facility] Address: [address] [place] [address] Performed By: #### 2 4321-2 ####[facility] LABCLIA [id number] [place] [address] [place] Calcium [Mass/Vol] 9.9 mg/dL Normal 8.5-10.2 [facility] Comment on above: Order Comment: Speci men Type: BLOOD SPECIMENOrdering Facility: [facility] Address: [address] [place] [address] Performed By: #### 2 4321-2 ####[facility] LABCLIA [id number] [place] [address] [place] Chloride [Moles/Vol] 98 mmol/L Normal 98-107 [facility] Comment on above: Order Comment: Speci men Type: BLOOD SPECIMENOrdering Facility: [facility] Address: [address] [place] [address] Performed By: #### 2 4321-2 ####[facility] LABIA [id number] [place] [id number] [place] CO2 [Moles/Vol] 23 mmol/L Normal 22-30 [facility] Comment on above: Order Comment: Speci men Type: BLOOD SPECIMENOrdering Facility: [facility] Address: [address] [place] [address] Performed By: #### 2 4321-2 ####[facility] LABIA [id number] [place] [address] [place] Creatinine [Mass/Vol] 1.16 mg/dL High 0.58-0.96 [facility] Comment on above: Order Comment: Speci men Type: BLOOD SPECIMENOrdering Facility: [facility] Address: [address] [place] [address] Performed By: #### 2 4321-2 ####[facility] LABIA [id number] [address] OF [facility] Creatinine and Glomerular filtration rate.predicted panel (S/P/Bld) 53 mL/min/1.73m??? Low >=60 [facility] Comment on above: Order Comment: Speci men Type: BLOOD SPECIMENOrdering Facility: [facility] Address: [address] [place] [address] Result Comment: Elisa mated Glomerular Filtration Rate (eGFR) is calculated using the 2020 CKD-EPI creatinine equation. This equation utilizes serum creatinine, sex, and age as parameters. The creatinine assay has traceable calibration to isotope dilution-mass spectrometry. Refer to KDIGO guidelines for clinical interpretation. In patients with unstable renal function, e.g. those with acute kidney injury, the eGFR may not accurately reflect actual GFR. Performed By: #### 2 4321-2 ####[facility] LABIA [id number] [place] [address] [place] Glucose [Mass/Vol] 109 mg/dL High 74-99 [facility] Comment on above: Order Comment: Speci men Type: BLOOD SPECIMENOrdering Facility: [facility] Address: [address] [place] [address] Result Comment: The [place] Diabetes Association (ADA) provides guidance for cutoff values for fasting glucose and random glucose. The ADA defines fasting as no caloric intake for at least 8 hours. Fasting plasma glucose results between 100 to 125 mg/dL indicate increased risk for diabetes (prediabetes). Fasting plasma glucose results greater than or equal to 126 mg/dL meet the criteria for diagnosis of diabetes. In the absence of unequivocal hyperglycemia, results should be confirmed by repeat testing. In a patient with classic symptoms of hyperglycemia or hyperglycemic crisis, random plasma glucose results greater than or equal to 200 mg/dL meet the criteria for diagnosis of diabetes. Reference: Standards of Medical Care in Diabetes 2016, [employer]. Diabetes Care. 2016.39(Suppl 1). Performed By: #### 2 4321-2 ####[facility] LABIA [id number] [place] [address] [place] Potassium [Moles/Vol] 4.9 mmol/L Normal 3.7-5.1 [facility] Comment on above: Order Comment: Speci men Type: BLOOD SPECIMENOrdering Facility: [facility] Address: [address] [place] [address] Performed By: #### 2 4321-2 ####[facility] LABIA [id number] [place] [address] [place] Sodium [Moles/Vol] 134 mmol/L Low 136-144 [facility] Comment on above: Order Comment: Speci men Type: BLOOD SPECIMENOrdering Facility: [facility] Address: [address] [place] [address] Performed By: #### 2 4321-2 ####[facility] LABCLIA [id number] [place] [address] [place] Urea nitrogen [Mass/Vol] 18 mg/dL Normal 7-21 [facility] Comment on above: Order Comment: Speci men Type: BLOOD SPECIMENOrdering Facility: [facility] Address: [address] [place] [address] Performed By: #### 2 4321-2 ####[facility] LABCLIA [id number] [place] [id number] [place] [address] [facility] CNOVon 06-28-2024 CNOV Office Visit (INTMWS ) JILLIAN BURRELL ([id number]) 1960 F Date Time Provider Department 06/28/24 11:20 AM ANGELIKA WILSON INTPRITI During your visit today, we recorded the following information about you: Temperature Pulse Respiration Blood pressure 97.5 degrees 94/minute 16/minute 124/88 Weight 139.7 kg Angelika Wilson APRN.D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 06/28/2024 12:24 PM Signed CC: Patient presents with: Forms: Forms to go into assisted living [facility] Jillian Aldrich Ashanti is a 64 year old female who presents today for wanting forms filled out to move into [facility] but is also ill. Recording using [employer] software for draft documentation of the visit was discussed with the patient/authorized career services representative; all questions welcomed and answered. Patient/authorized career services representative agreed to proceed Cough: - Onset of symptoms approximately one week ago. - Symptoms include cough, fever, chills, sinus pressure, and fatigue. - Denies nausea, emesis, or diarrhea. - Initially suspected allergies or sinus infection. - Productive cough with yellow and brown sputum but now states cough Is dry, deep and she feels it deep in her chest - Denies increased dyspnea, chest pressure, or palpitations. - Using Flonase; taking severe cold and sinus cough syrup with minimal relief. Hypothyroidism: - Taking levothyroxine 88 mcg daily; missed doses last week because she needs a refill - Denies weight changes or energy level fluctuations. B12 Deficiency: - Not taking B12 supplement as ordered; unable to obtain 1,000 mcg dose because its at the store and she needs some one to go to the store for her. Depression and Anxiety: - Well-controlled with citalopram - Denies suicidal or homicidal ideation or changes in appetite. - Experiencing increased sleep due to illness but feels it is fine when she is healthy. No longer taking trazadone as it just made her more tired. Chronic Vertigo: - Managed with meclizine and well controlled at this time Hyperlipidemia: - trying to manage with healthy diet and weight loss. Is unable to exercise due to chronic pain and instability of gait. Hoping to get more active when at assisted living and with use of physical therapy there. - Recent weight loss of 40 lbs. - No chest pain or increased dyspnea. Chronic Pain: - Taking gabapentin for nerve pain. - uses a cane for ambulation and is finally getting her lift chair as she is unable to stand up easily on her own from a normal chair. Uses a walker at night when she goes to the restroom for safety. REVIEW OF SYSTEMS See HPI PAST MEDICAL HISTORY Diagnosis Date Depression Generalized anxiety disorder Hiatal hernia Hypothyroid Kidney stones Obstructive sleep apnea syndrome just started Vertigo PAST SURGICAL HISTORY Procedure Laterality Date HEEL-CALCANEUS Bilateral PAST SURGICAL HISTORY OF kidney stone REMOVAL GALLBLADDER 1994 ALLERGIES Augmentin [Amoxicillin-Pot Clavulanate], Codeine, Oxycodone, and Zanaflex [Tizanidine] MEDICATIONS Cyanocobalamin 1,000 mcg TbER Take 1 tablet by mouth once daily. citalopram (CELEXA) 40 mg tablet Take 1 tablet by mouth once daily. levothyroxine (SYNTHROID) 88 mcg tablet Take 1 tablet by mouth once daily. meloxicam (MOBIC) 15 mg tablet TAKE 1 TABLET DAILY WITH FOOD benzonatate (TESSALON PERLE) 100 mg capsule Take 1 capsule by mouth three times a day as needed. doxycycline hyclate (VIBRAMYCIN) 100 mg capsule Take 1 capsule by mouth two times a day for 10 days. Walker [facility] Standard Walker fluticasone (FLONASE) 50 mcg/actuation nasal spray Use 2 Sprays in each nostril once daily as needed for cold/allergy symptoms. Rinse mouth after use. ergocalciferol 50,000 unit capsule (VITAMIN D2, DRISDOL) Take 1 capsule by mouth one time a week. gabapentin (NEURONTIN) 400 mg capsule TAKE 1 CAPSULE THREE TIMES A DAY WITH MEALS (MAY MAKE DROWSY) meclizine (ANTIVERT) 25 mg tab TAKE 1 TABLET THREE TIMES A DAY NEEDED FOR DIZZINESS PEG 400-propylene glycol (SYSTANE ULTRA) 0.4-0.3 % ophthalmic solution Use 1 Drop in both eyes twice daily. acetaminophen (TYLENOL) 500 mg tablet Take 1-2 tablets by mouth three times daily. FAMILY HISTORY Problem Relation Age of Onset Diabetes Mother Glaucoma Mother Macular Degen Mother Diabetes Father No Known Problems Sister Social History Tobacco Use Smoking status: Never Smokeless tobacco: Never Vaping Use Vaping status: Never Used Substance Use Topics Alcohol use: Not Currently Drug use: Never PHYSICAL EXAM BP 124/88 Pulse 94 Resp 16 Wt (!) 139.7 kg (308 lb) SpO2 99% BMI 48.24 kg/m? General Appearance: well appearing, in no acute distress, alert Eyes: conjunctiva pink and moist, no icterus, sclera white, non-injected Ears: external ears normal to inspection and palpation, canals clear, Left tympanic membr (more content not included)... Normal [facility] XR CHEST 2V FRONTAL/LATon XR CHEST 2V FRONTAL/LAT * * *Final Report* * * DATE OF EXAM: Jun 28 2024 12:41PM WOX [id number] - XR CHEST 2V FRONTAL/LAT / PROCEDURE REASON: multiple diagnoses * * * * Physician Interpretation * * * * EXAMINATION: CHEST RADIOGRAPH (2 VIEW FRONTAL and LATERAL) CLINICAL HISTORY: Acute cough Wheezing MQ: XC2_6 EXAM DATE/TIME: 06/28/2024 12:41 PM COMPARISON: 12/24/2022 RESULT: Lines, tubes, and devices: None. Lungs and pleura: No consolidation. No lung mass. No pleural effusion. No pneumothorax. Cardiomediastinal silhouette: Mild cardiomegaly. Tortuous, ectatic thoracic aorta. Bones and soft tissues: Unremarkable. IMPRESSION: No acute radiographic abnormality. Manager Clinical Services: VIOLA Transcribe Date/Time: Jun 30 2024 11:12A Dictated by : CLAYTON FORD MD This examination was interpreted and the report reviewed and electronically signed by: CLAYTON FORD MD on Jun 30 2024 11:13AM EST [id number] Normal [facility] CNPMallory 05-18-2024 CNPN Telephone (INTMWS) JILLIAN BURRELL ([id number]) 1960 F Date Time Provider Department 05/18/24 NIGEL CARRILLO INTMWS During your visit today, we recorded the following information about you: Rozina Adkins LPN 05/18/2024 11:58 AM Addendum Received a faxed request for a walker, from [facility] agency on aging and Disability. Patient would like standard walker Attn: Rohan Flaherty Rozina Adkins LPN May 18, 2024 11:54 AM Nigel Carrillo MD 05/18/2024 2:19 PM Signed Printed for review. RegardsNigel MD, Jane, MA 05/18/2024 2:40 PM Signed Faxed. Allergies As of Date: 05/18/2024 Noted Allergy Reaction AUGMENTIN (AMOXICILLIN-POT CLAVUL*06/29/2023 8 - GI Upset Comments: Pt does not want to take medication again as it made her very sick. CODEINE 03/14/2020 9 - Itching OXYCODONE 07/31/2018 9 - Itching ZANAFLEX (TIZANIDINE) 06/29/2023 14 - Other: See Comments Comments: Made pt very anxious Date Reviewed: 02/03/2024 Reviewed by: Lana Bautista LPN - Fully Assessed Reason for Visit: Orders [681] Cmt: walker Primary Visit Diagnosis:Ambulatory dysfunction [R26.2] Other Visit Diagnoses:Lumbar and sacral arthritis [M47.817] Weakness of both lower extremities [R29.898] Order(s):Walker miscStandard WalkerDisp: 1 eachRfl: 1 Prescriptions as of 05/18/2024 - [facility] Standard Walker - Cyanocobalamin 1,000 mcg TbER Take 1 tablet by mouth once daily. - meloxicam (MOBIC) 15 mg tablet TAKE 1 TABLET DAILY WITH FOOD - citalopram (CELEXA) 40 mg tablet Take 1 tablet by mouth once daily. - fluticasone (FLONASE) 50 mcg/actuation nasal spray Use 2 Sprays in each nostril once daily as needed for cold/allergy symptoms. Rinse mouth after use. - ergocalciferol 50,000 unit capsule (VITAMIN D2, DRISDOL) Take 1 capsule by mouth one time a week. - traZODone (DESYREL) 50 mg tablet TAKE 1 TABLET DAILY AT BEDTIME - gabapentin (NEURONTIN) 400 mg capsule TAKE 1 CAPSULE THREE TIMES A DAY WITH MEALS (MAY MAKE DROWSY) - levothyroxine (SYNTHROID) 88 mcg tablet Take 1 tablet by mouth once daily. - meclizine (ANTIVERT) 25 mg tab TAKE 1 TABLET THREE TIMES A DAY NEEDED FOR DIZZINESS - PEG 400-propylene glycol (SYSTANE ULTRA) 0.4-0.3 % ophthalmic solution Use 1 Drop in both eyes twice daily. - acetaminophen (TYLENOL) 500 mg tablet Take 1-2 tablets by mouth three times daily. Problem List As Of Date 05/18/2024 Noted Resolved Kidney stones [N20.0] Hypothyroid [E05.90] Depression [F32.A] Vertigo [R42] Obstructive sleep apnea syndrome [G47.33] Hypoxemia associated with sleep [G47.36] 10/17/2020 Anxiety and depression [F41.9, F32.A] 02/03/2024 Prescriptions ordered this encounter Disp Refills Start End WALKER 1 ea* 1 05/18/2024 Class: Print RX Sig: Leora Nolasco Encounter Status:Closed by JANEL RIVERA on 05/18/24 [facility] Emili 02-25-2024 [facility] Telephone (INTMWS) JILLIAN BURRELL ([id number]) 1960 F Date Time Provider Department 02/25/24 ANGELIKA WILSON During your visit today, we recorded the following information about you: Mamta Spann RN 02/25/2024 4:00 PM Signed Patient calls and states that [facility] has not sent her the vitamin B-12 prescription. Pharmacy is saying there is something wrong with the script. Patient asking if provider can take a look at what was sent. Please review and advise, FABIOLA Vergara Joy, APRN.D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 02/28/2024 8:45 AM Signed Please call [facility] and find out what the problem is. Thank you Angelika Wilson APRN.Mamta Bender RN 02/28/2024 9:55 AM Signed Called and spoke with Akbar at [facility]. Akbar states that medication needs a prior authorization. Akbar states that once prior authorization is approved then medication can be resubmitted. FABIOLA Vergara Rachel L, MA 02/28/2024 11:14 AM Signed Forwarding to prior auth. ROSARIO Perez Janice, LPN 02/28/2024 11:19 AM Signed [employer] PA requested. Lydia Castro RN 02/28/2024 12:08 PM Signed Jyothi with [employer] calls to request PA be resubmitted electronically. There system has been down and they are unable to send us any requests. Jyothi reports that they need peer reviewed medical documentation by two providers stating efficacy and safety. Without that documentation medication will not be covered. Case #[id number] . FABIOLA Garcia Janice, LPN 02/28/2024 12:24 PM Signed Records were sent. Did cancel PA and requested again. Antonia Hutchinson LPN 02/29/2024 10:52 AM Signed This was denied. It says documentation was not rec'd . DOCUMENTION WAS SENT 3 TIMES. WILL CALL THEM. Your request was denied We have denied coverage or payment under your Medicare Part D benefit for the following prescription drug(s) that you or your prescriber requested: B-12 1000 mcg TABLET SA Why did we deny your request? We denied this request under Medicare Part D because: ? We have reviewed your request under the Medicaid portion of your benefit. The information received from your physician does not support approval of this drug because there was not documentation submitted by your provider of two peer-reviewed medical articles citing efficacy and safety of the requested product. The requested medication is not eligible for coverage under Medicare Part D. Therefore, your request is denied Antonia Hutchinson LPN 02/29/2024 11:32 AM Signed Appeal completed and faxed for review. Ashvin Nagel, FABIOLA 02/29/2024 5:02 PM Signed [facility] appeal dept phoned to let office know, their fax machines are not working, and therefore they are unable to fax the questionnaire, so they called with questions about the appeal. 1) What is the diagnoses: chose from the following: anorexia, fertility or hair loss, sexual dysfunction, weight loss, or other. Unable to go to the next question until answer to first question is received, second question depends on answer to first question. Office can call there PA dept and speak with a career services representative with case # [id number] to answer the questions in the questionnaire. [phone] Zakia Lopez MA 03/01/2024 8:40 AM Signed Medication is not covered due to patient can buy it OTC per medicaid/medicare poliy anything available OTC can be purchased by patient ROSARIO Valadez Krystle, FABIOLA 03/02/2024 4:30 PM Signed Sol with [facility] appeal department calls to ask if provider has responded to the request for documentation from provider of two peer-reviewed medical articles citing efficacy and safety of the requested product. Notified Sol that documentation was not available. Asked what the purpose of needing that was and Sol did not know. She thought it was something new as she had never seen that request before. Sol reports they would need documentation prior to March 06 for them to make a decision. Medication won't be covered without it. Notified Sol that it looks like medication is OTC and isn't covered any ways. Sol reports she doesn't know she is just gathering information. Lydia Castro RN Allergies As of Date: 02/25/2024 Noted Allergy Reaction AUGMENTIN (AMOXICILLIN-POT CLAVUL*06/29/2023 8 - GI Upset Comments: Pt does not want to take medication again as it made her very sick. CODEINE 03/14/2020 9 - Itching OXYCODONE 07/31/2018 9 - Itching ZANAFLEX (TIZANIDINE) 06/29/2023 14 - Other: See Comments Comments: Made pt very anxious Date Reviewed: 02/03/2024 Reviewed by: Lana Bautista LPN - Fully Assessed Reason for Visit: Refill Request [94] Prescriptions as of 03/02/2024 - Cyanocobalamin 1,000 mcg TbER Take 1 tablet by mouth once daily. - meloxicam (more content not included)... Normal [facility] 02-14-2024 [facility] Telephone (ANI) JILLIAN BURRELL ([id number]) 1960 F Date Time Provider Department 02/14/24 ANGELIKA WILSON During your visit today, we recorded the following information about you: Angelika Wilson APRN.CNP 02/14/2024 7:29 AM Signed Kidney function is decreased. Is she taking any other anti-inflammatories outside of her meloxicam? Dehydration like decreasing fluid intake? Also vit b12 is low. She will need a supplement for this. It can be an every day pill or weekly injection. What would she prefer? Thank you Angelika Wilson APRN.Janel Salinas MA 02/14/2024 10:55 AM Signed Patient has been taking ibuprofen for bad tooth for awhile patient states. Patient had tooth extracted on 02/09 so ibuprofen is almost completed. Patient requests daily B- 12 due to weather. Please send to [facility] Angelika Wilson APRN.CNP 02/14/2024 11:23 AM Signed She needs to get off the ibuprofen, increase water intake and recheck kidney function in 2 weeks. Thank you Angelika Wilson APRN.Mamta Bender RN 02/14/2024 12:51 PM Signed Patient calls and states that she talked to [employer] about form that needed to be sent out for lift chair. Patient reports that she was told that provider needed to go to [facility] and fill out the paperwork from there. Patient notified of provider instruction regarding ibuprofen and increase of water intake and re check of labs. Patient voices understanding. FABIOLA Vergara Joy, APRN.MYA 02/14/2024 12:55 PM Signed Please get form and place on my desk. Thank you Angelika Wilson APRN.Janel Salinas MA 02/14/2024 1:25 PM Signed Form placed on desk for review. Mamta Spann RN 02/21/2024 11:47 AM Signed Rigoberto from [employer] calls and states that they re-sent form for Lift Chair on 02/17/2024. Rigoberto asking if form was received? Asking for form to be faxed back to [phone]. FABIOLA Vergara Jane, MA 02/23/2024 9:16 AM Signed Form received and placed on desk. Gala Atwood RN 03/08/2024 1:47 PM Signed Rigoberto calling again from [employer]. Following up in regards to form for Lift Chair for pt that was faxed on 02/17/2024. Rigoberto states last time they called on the , they were told that form was on provider's desk waiting to be signed. Asking for form to be faxed back as soon as possible to [phone]. Noted the other part of this encounter that pt was to repeat some labwork around 02/28/24. Pt has not been in and done that. It appears she has a lab appt set up for 03/14/24 and has follow up appt with Angelika on 05/04/24. Janel Rivera MA 03/08/2024 2:02 PM Addendum Form completed and faxed 03/01. Will fax again. Have faxed multiple times as fax numbers provided rings busy. Lydia Castro RN 03/10/2024 3:09 PM Signed Rigoberto with [employer] calls and reports that forms for lift chair have been received but in order for chair to be covered question 3 on the forms needs to say that she is not able to stand without assistance. Rigoberto asking if form could be changed and faxed back. FABIOLA Garcia Jane, MA 03/10/2024 3:22 PM Signed Form placed on provider desk for revision. Angelika Wilson APRN.MYA 03/24/2024 1:08 PM Signed Please fax as requested. Thank you Angelika Wilson APRN.Janel Salinas MA 03/24/2024 2:29 PM Signed Faxed. Allergies As of Date: 02/14/2024 Noted Allergy Reaction AUGMENTIN (AMOXICILLIN-POT CLAVUL*06/29/2023 8 - GI Upset Comments: Pt does not want to take medication again as it made her very sick. CODEINE 03/14/2020 9 - Itching OXYCODONE 07/31/2018 9 - Itching ZANAFLEX (TIZANIDINE) 06/29/2023 14 - Other: See Comments Comments: Made pt very anxious Date Reviewed: 02/03/2024 Reviewed by: Lana Bautista LPN - Fully Assessed Reason for Visit: Results [95] fax form for lift chair [Other] Primary Visit Diagnosis:Function kidney decreased [N28.9] Order(s):BASIC METABOLIC PANEL [SQBMP] Order #: [id number] FUTURE Cyanocobalamin 1,000 mcg TbERTake 1 tablet by mouth once daily.Disp: 90 tabletRfl: 1 Prescriptions as of 03/24/2024 - Cyanocobalamin 1,000 mcg TbER Take 1 tablet by mouth once daily. - meloxicam (MOBIC) 15 mg tablet TAKE 1 TABLET DAILY WITH FOOD - citalopram (CELEXA) 40 mg tablet Take 1 tablet by mouth once daily. - fluticasone (FLONASE) 50 mcg/actuation nasal spray Use 2 Sprays in each nostril once daily as needed for cold/allergy symptoms. Rinse mouth after use. - ergocalciferol 50,000 unit capsule (VITAMIN D2, DRISDOL) Take 1 capsule by mouth one time a week. - traZODone (DESYREL) 50 mg tablet TAKE 1 TABLET DAILY AT BEDTIME - gabapentin (NEURONTIN) 400 mg capsule TAKE 1 CAPSULE THREE TIMES A DAY WITH MEALS (MAY MAKE DROWSY) - levothyroxine (SYNTHROID) 88 mcg tablet Take 1 tablet by mouth once daily. - meclizine (ANTIVERT) 25 mg tab TAKE 1 TABLET THREE (more content not included)... Normal [facility] CBC W Auto Differential pane l (Bld)on 02-03-2024 Basophils (Bld) [#/Vol] 0.03 10*3/uL [facility] Basophils/100 WBC (Bld) 0.4 % [facility] Differential cell count method Nom (Bld) Auto [facility] Eosinophils (Bld) [#/Vol] 0.19 10*3/uL [facility] Eosinophils/100 WBC (Bld) 2.8 % [facility] Erythrocyte distribution width (RBC) [Ratio] 12.3 % 11.5 - 15.0 % [facility] Hematocrit (Bld) [Volume fraction] 47.4 % High 36.0 - 46.0 % [facility] Hemoglobin (Bld) [Mass/Vol] 15.9 g/dL High 11.5 - 15.5 g/dL [facility] Immature granulocytes (Bld) [#/Vol] [facility] Immature granulocytes/100 WBC (Bld) 0.3 % [facility] Interpretation and review of laboratory results Abnormal [facility] Lymphocytes (Bld) [#/Vol] 2.32 10*3/uL [facility] Lymphocytes/100 WBC (Bld) 33.9 % [facility] MCH (RBC) [Entitic mass] 32.6 pg 26.0 - 34.0 pg [facility] MCHC (RBC) [Mass/Vol] 33.5 g/dL 30.5 - 36.0 g/dL [facility] MCV (RBC) [Entitic vol] 97.1 fL 80.0 - 100.0 fL [facility] Monocytes (Bld) [#/Vol] 0.57 10*3/uL [facility] Monocytes/100 WBC (Bld) 8.3 % [facility] Neutrophils (Bld) [#/Vol] 3.71 10*3/uL [facility] Neutrophils/100 WBC (Bld) 54.3 % [facility] Nucleated RBC (Bld) [#/Vol] NINF [facility] Nucleated RBC/100 WBC (Bld) [Ratio] 0.0 % /100 WBC [facility] Platelet mean volume (Bld) [Entitic vol] 10.7 fL 9.0 - 12.7 fL [facility] Platelets (Bld) [#/Vol] 208 10*3/uL [facility] RBC (Bld) [#/Vol] 4.88 10*6/uL 3.90 - 5.2 0 m/uL [facility] WBC (Bld) [#/Vol] 6.84 10*3/uL [facility] Basophils (Bld) [#/Vol] 0.03 10*3/uL Normal <0.11 [facility] Comment on above: Order Comment: Speci men Type: BLOOD SPECIMENOrdering Facility: [facility] Address: [address] [place] [address] Performed By: #### 5 7021-8 ####[facility] LABIA [id number] [place] [address] [place] Basophils/100 WBC (Bld) 0.4 % Normal [facility] Comment on above: Order Comment: Speci men Type: BLOOD SPECIMENOrdering Facility: [facility] Address: [address] [place] [address] Performed By: #### 5 7021-8 ####[facility] LABCLIA [id number] [place] [address] [place] Differential cell count method Nom (Bld) Auto Normal [facility] Comment on above: Order Comment: Speci men Type: BLOOD SPECIMENOrdering Facility: [facility] Address: [address] [place] [address] Performed By: #### 5 7021-8 ####[facility] LABCLIA [id number] [place] [address] [place] Eosinophils (Bld) [#/Vol] 0.19 10*3/uL Normal <0.46 [facility] Comment on above: Order Comment: Speci men Type: BLOOD SPECIMENOrdering Facility: [facility] Address: [address] [place] [address] Performed By: #### 5 7021-8 ####[facility] LABCLIA [id number] [place] [address] [place] Eosinophils/100 WBC (Bld) 2.8 % Normal [facility] Comment on above: Order Comment: Speci men Type: BLOOD SPECIMENOrdering Facility: [facility] Address: [address] [place] [address] Performed By: #### 5 7021-8 ####[facility] LABCLIA [id number] [place] [address] [place] Erythrocyte distribution width (RBC) [Ratio] 12.3 % Normal 11.5-15.0 [facility] Comment on above: Order Comment: Speci men Type: BLOOD SPECIMENOrdering Facility: [facility] Address: [address] [place] [address] Performed By: #### 5 7021-8 ####[facility] LABCLIA [id number] [place] [address] [place] Hematocrit (Bld) [Volume fraction] 47.4 % High 36.0-46.0 [facility] Comment on above: Order Comment: Speci men Type: BLOOD SPECIMENOrdering Facility: [facility] Address: [address] [place] [address] Performed By: #### 5 7021-8 ####[facility] LABCLIA [id number] [place] [address] [place] Hemoglobin (Bld) [Mass/Vol] 15.9 g/dL High 11.5-15.5 [facility] Comment on above: Order Comment: Speci men Type: BLOOD SPECIMENOrdering Facility: [facility] Address: [address] [place] [address] Performed By: #### 5 7021-8 ####[facility] LABCLIA [id number] [place] [address] [place] Immature granulocytes (Bld) [#/Vol] 10*3/uL Normal <0.10 [facility] Comment on above: Order Comment: Speci men Type: BLOOD SPECIMENOrdering Facility: [facility] Address: [address] [place] [address] Performed By: #### 5 7021-8 ####[facility] LABCLIA [id number] [place] [address] [place] Immature granulocytes/100 WBC (Bld) 0.3 % Normal [facility] Comment on above: Order Comment: Speci men Type: BLOOD SPECIMENOrdering Facility: [facility] Address: [address] [place] [address] Performed By: #### 5 7021-8 ####[facility] LABCLIA [id number] [place] [address] [place] Lymphocytes (Bld) [#/Vol] 2.32 10*3/uL Normal 1.00-4.00 [facility] Comment on above: Order Comment: Speci men Type: BLOOD SPECIMENOrdering Facility: [facility] Address: [address] [place] [address] Performed By: #### 5 7021-8 ####[facility] LABCLIA [id number] [place] [address] [place] Lymphocytes/100 WBC (Bld) 33.9 % Normal [facility] Comment on above: Order Comment: Speci men Type: BLOOD SPECIMENOrdering Facility: [facility] Address: [address] [place] [address] Performed By: #### 5 7021-8 ####[facility] LABCLIA [id number] [place] [address] [place] MCH (RBC) [Entitic mass] 32.6 pg Normal 26.0-34.0 [facility] Comment on above: Order Comment: Speci men Type: BLOOD SPECIMENOrdering Facility: [facility] Address: [address] [place] [address] Performed By: #### 5 7021-8 ####[facility] LABCLIA [id number] [place] [address] [place] MCHC (RBC) [Mass/Vol] 33.5 g/dL Normal 30.5-36.0 [facility] Comment on above: Order Comment: Speci men Type: BLOOD SPECIMENOrdering Facility: [facility] Address: [address] [place] [address] Performed By: #### 5 7021-8 ####[facility] LABCLIA [id number] [place] [address] [place] MCV (RBC) [Entitic vol] 97.1 fL Normal 80.0-100.0 [facility] Comment on above: Order Comment: Speci men Type: BLOOD SPECIMENOrdering Facility: [facility] Address: [address] [place] [address] Performed By: #### 5 7021-8 ####[facility] LABIA [id number] [place] [address] [place] Monocytes (Bld) [#/Vol] 0.57 10*3/uL Normal <0.87 [facility] Comment on above: Order Comment: Speci men Type: BLOOD SPECIMENOrdering Facility: [facility] Address: [address] [place] [address] Performed By: #### 5 7021-8 ####[facility] LABCLIA [id number] [place] [address] [place] Monocytes/100 WBC (Bld) 8.3 % Normal [facility] Comment on above: Order Comment: Speci men Type: BLOOD SPECIMENOrdering Facility: [facility] Address: [address] [place] [address] Performed By: #### 5 7021-8 ####[facility] LABCLIA [id number] [place] [address] [place] Neutrophils (Bld) [#/Vol] 3.71 10*3/uL Normal 1.45-7.50 [facility] Comment on above: Order Comment: Speci men Type: BLOOD SPECIMENOrdering Facility: [facility] Address: [address] [place] [address] Performed By: #### 5 7021-8 ####[facility] LABCLIA [id number] [place] [address] [place] Neutrophils/100 WBC (Bld) 54.3 % Normal [facility] Comment on above: Order Comment: Speci men Type: BLOOD SPECIMENOrdering Facility: [facility] Address: [address] [place] [address] Performed By: #### 5 7021-8 ####[facility] LABCLIA [id number] [place] [address] [place] Nucleated RBC (Bld) [#/Vol] 10*3/uL Normal <0.01 [facility] Comment on above: Order Comment: Speci men Type: BLOOD SPECIMENOrdering Facility: [facility] Address: [address] [place] [address] Performed By: #### 5 7021-8 ####[facility] LABCLIA [id number] [place] [address] [place] Nucleated RBC/100 WBC (Bld) [Ratio] 0.0 /100 WBC Normal [facility] Comment on above: Order Comment: Speci men Type: BLOOD SPECIMENOrdering Facility: [facility] Address: [address] [place] [address] Performed By: #### 5 7021-8 ####[facility] LABCLIA [id number] [place] [address] [place] Platelet mean volume (Bld) [Entitic vol] 10.7 fL Normal 9.0-12.7 [facility] Comment on above: Order Comment: Speci men Type: BLOOD SPECIMENOrdering Facility: [facility] Address: [address] [place] [address] Performed By: #### 5 7021-8 ####[facility] LABIA [id number] [place] [address] [place] Platelets (Bld) [#/Vol] 208 10*3/uL Normal 150-400 [facility] Comment on above: Order Comment: Speci men Type: BLOOD SPECIMENOrdering Facility: [facility] Address: [address] [place] [address] Performed By: #### 5 7021-8 ####[facility] LABIA [id number] [place] [address] [place] RBC (Bld) [#/Vol] 4.88 10*6/uL Normal 3.90-5.20 [facility] Comment on above: Order Comment: Speci men Type: BLOOD SPECIMENOrdering Facility: [facility] Address: [address] [place] [address] Performed By: #### 5 7021-8 ####[facility] LABIA [id number] [place] [address] [place] WBC (Bld) [#/Vol] 6.84 10*3/uL Normal 3.70-11.00 [facility] Comment on above: Order Comment: Speci men Type: BLOOD SPECIMENOrdering Facility: [facility] Address: [address] [place] [address] Performed By: #### 5 7021-8 ####[facility] LABCLIA [id number] [place] [address] [place] CNOVon 02-03-2024 CNOV Office Visit (INTMWS ) JILLIAN BURRELL ([id number]) 1960 F Date Time Provider Department 02/03/24 10:20 AM ANGELIKA WILSON During your visit today, we recorded the following information about you: Temperature Pulse Respiration Blood pressure 96.9 degrees 85/minute 22/minute 112/72 Weight Height 139.3 kg 1.702 m Angelika Wilson APRN.[facility] 02/03/2024 10:51 AM Signed CC: Patient presents with: Follow Up: needs lift chair, states lift chair order needs reworded HPI Jillian Burrell is a 63 year old female who presents today for requesting order for lift chair. Requesting lift chair: Uses a cane for walking but uses long distance a wheelchair. Has difficulty getting out of regular chairs and requires scooting forward to get up. This is concerning because she lives alone. Has a health aide that comes twice a day and gets meals delivered. Has not had any falls because once she is standing at home she is able to get around well with cane. The problem is the getting up from the chair. Has this difficulty and leg weakness due to her lumbar and sacral arthritis. Had been seeing pain mgmt earlier this year and was going to get steroid injections but this was put on hold due to dental infection. Never followed back up but is getting tooth removed next month and would like to get the injections afterwards. Also completed physical therapy at home earlier this year and continues to do home exercises as supplied by the therapists. Also has lost a large amount of weight due to diet changes and has not had any improvement. Depression anxiety and Insomnia: Reports depression out of control. Crying often with little interest in doing things and seems to want to sleep more often. Alcohol use: does not drink any alcohol Drug use: No Appetite: good Suicidal Thoughts: No suicidal ideation, intent or plan Hypothyroidism: Taking medication as ordered but still with ongoing fatigue. Denies fever chills, shortness of breath, chest pain, edema, injury, new weakness, loss of sensation, or other new concern. REVIEW OF SYSTEMS See HPI PAST MEDICAL HISTORY Diagnosis Date Depression Generalized anxiety disorder Hiatal hernia Hypothyroid Kidney stones Obstructive sleep apnea syndrome just started Vertigo PAST SURGICAL HISTORY Procedure Laterality Date HEEL-CALCANEUS Bilateral PAST SURGICAL HISTORY OF kidney stone REMOVAL GALLBLADDER 1994 ALLERGIES Augmentin [Amoxicillin-Pot Clavulanate], Codeine, Oxycodone, and Zanaflex [Tizanidine] MEDICATIONS meloxicam (MOBIC) 15 mg tablet TAKE 1 TABLET DAILY WITH FOOD citalopram (CELEXA) 40 mg tablet Take 1 tablet by mouth once daily. fluticasone (FLONASE) 50 mcg/actuation nasal spray Use 2 Sprays in each nostril once daily as needed for cold/allergy symptoms. Rinse mouth after use. ergocalciferol 50,000 unit capsule (VITAMIN D2, DRISDOL) Take 1 capsule by mouth one time a week. traZODone (DESYREL) 50 mg tablet TAKE 1 TABLET DAILY AT BEDTIME gabapentin (NEURONTIN) 400 mg capsule TAKE 1 CAPSULE THREE TIMES A DAY WITH MEALS (MAY MAKE DROWSY) levothyroxine (SYNTHROID) 88 mcg tablet Take 1 tablet by mouth once daily. meclizine (ANTIVERT) 25 mg tab TAKE 1 TABLET THREE TIMES A DAY NEEDED FOR DIZZINESS PEG 400-propylene glycol (SYSTANE ULTRA) 0.4-0.3 % ophthalmic solution Use 1 Drop in both eyes twice daily. acetaminophen (TYLENOL) 500 mg tablet Take 1-2 tablets by mouth three times daily. FAMILY HISTORY Problem Relation Age of Onset Diabetes Mother Glaucoma Mother Macular Degen Mother Diabetes Father No Known Problems Sister Social History Tobacco Use Smoking status: Never Smokeless tobacco: Never Vaping Use Vaping status: Never Used Substance Use Topics Alcohol use: Not Currently Drug use: Never PHYSICAL EXAM BP 112/72 (BP Site: Left Arm, BP Position: Sitting, BP Cuff Size: Large Adult) Pulse 85 Temp 36.1 ?C (96.9 ?F) Resp 22 Ht 170.2 cm (5' 7) Wt (!) 139.3 kg (307 lb) SpO2 97% BMI 48.08 kg/m? General Appearance: well appearing, in no acute distress, alert Eyes: conjunctiva pink and moist, no icterus, sclera white, non-injected Neck: Thyroid difficult to palpate due to neck circumference, Neck supple, No adenopathy Lymph nodes: No cervical lymphadenopathy and No supraclavicular lymphadenopathy Lungs: Lungs clear to auscultation. No wheezing, rhonchi, rales. Heart: RRR without murmur, gallop, or rubs. No ectopy Health maintenance reviewed with patient: Anxiety Screening Never done Cervical Cancer Screening Never done Mammogram Screening Never done Colorectal Cancer Screening Never done DTaP,Tdap,Td Vaccine(1 - Tdap) due on 02/02/2025 RSV Vaccine(1 - Risk 60-74 years 1-dose series) due on 02/02/2025 Hepatitis C Screening due on 02/02/2025 HIV Screening due on 02/02/2025 Shingrix Vaccine(1 of 2) due o (more content not included)... Normal [facility] Comprehensive metabolic 2000 panelon 02-03-2024 Albumin [Mass/Vol] 4.2 g/dL Normal 3.9-4.9 [facility] Comment on above: Order Comment: Speci men Type: BLOOD SPECIMENOrdering Facility: [facility] Address: [address] [place] [address] Performed By: #### 2 4322-09, 2131-10 ####[facility] LABIA [id number] [place] [address] [place] ALP [Catalytic activity/Vol] 70 U/L Normal 34-123 [facility] Comment on above: Order Comment: Speci men Type: BLOOD SPECIMENOrdering Facility: [facility] Address: [address] [place] [address] Performed By: #### 2 4322-09, 2131-10 ####[facility] LABCLIA [id number] [place] [address] [place] ALT [Catalytic activity/Vol] 30 U/L Normal 7-38 [facility] Comment on above: Order Comment: Speci men Type: BLOOD SPECIMENOrdering Facility: [facility] Address: [address] [place] [address] Performed By: #### 2 4322-09, 2131-10 ####[facility] LABCLIA [id number] [place] [id number] [place] Anion gap [Moles/Vol] 15 mmol/L Normal 8-15 [facility] Comment on above: Order Comment: Speci men Type: BLOOD SPECIMENOrdering Facility: [facility] Address: [address] [place] [address] Performed By: #### 2 4322-09, 2131-10 ####[facility] LABCLIA [id number] [place] [id number] [place] AST [Catalytic activity/Vol] 28 U/L Normal 13-35 [facility] Comment on above: Order Comment: Speci men Type: BLOOD SPECIMENOrdering Facility: [facility] Address: [address] [place] [address] Performed By: #### 2 4322-09, 2131-10 ####[facility] LABCLIA [id number] [place] [address] [place] Bilirubin [Mass/Vol] 0.5 mg/dL Normal 0.2-1.3 [facility] Comment on above: Order Comment: Speci men Type: BLOOD SPECIMENOrdering Facility: [facility] Address: [address] [place] [address] Performed By: #### 2 4322-09, 2131-10 ####[facility] LABCLIA [id number] [place] [address] [place] Calcium [Mass/Vol] 9.6 mg/dL Normal 8.5-10.2 [facility] Comment on above: Order Comment: Speci men Type: BLOOD SPECIMENOrdering Facility: [facility] Address: [address] [place] [address] Performed By: #### 2 43204-15, 2131-10 ####[facility] LABCLIA [id number] [place] [id number] [place] Chloride [Moles/Vol] 101 mmol/L Normal 98-107 [facility] Comment on above: Order Comment: Speci men Type: BLOOD SPECIMENOrdering Facility: [facility] Address: [address] [place] [address] Performed By: #### 2 4323-8, 2131-10 ####[facility] LABCLIA [id number] [place] [address] [place] CO2 [Moles/Vol] 23 mmol/L Normal 22-30 [facility] Comment on above: Order Comment: Speci men Type: BLOOD SPECIMENOrdering Facility: [facility] Address: [address] [place] [address] Performed By: #### 2 4328, 2131-10 ####[facility] LABCLIA [id number] [place] [address] [place] Creatinine [Mass/Vol] 1.26 mg/dL High 0.58-0.96 [facility] Comment on above: Order Comment: Speci men Type: BLOOD SPECIMENOrdering Facility: [facility] Address: [address] [place] [address] Performed By: #### 2 4328, 2131-10 ####[facility] LABCLIA [id number] [place] [address] [place] Creatinine and Glomerular filtration rate.predicted panel (S/P/Bld) 48 mL/min/1.73m??? Low >=60 [facility] Comment on above: Order Comment: Speci men Type: BLOOD SPECIMENOrdering Facility: [facility] Address: [address] [place] [address] Result Comment: Elisa mated Glomerular Filtration Rate (eGFR) is calculated using the 2020 CKD-EPI creatinine equation. This equation utilizes serum creatinine, sex, and age as parameters. The creatinine assay has traceable calibration to isotope dilution-mass spectrometry. Refer to KDIGO guidelines for clinical interpretation. In patients with unstable renal function, e.g. those with acute kidney injury, the eGFR may not accurately reflect actual GFR. Performed By: #### 2 4328, 2131-10 ####[facility] LABCLIA [id number] [place] [address] [place] Glucose [Mass/Vol] 106 mg/dL High 74-99 [facility] Comment on above: Order Comment: Speci men Type: BLOOD SPECIMENOrdering Facility: [facility] Address: [address] [place] [address] Result Comment: The [place] Diabetes Association (ADA) provides guidance for cutoff values for fasting glucose and random glucose. The ADA defines fasting as no caloric intake for at least 8 hours. Fasting plasma glucose results between 100 to 125 mg/dL indicate increased risk for diabetes (prediabetes). Fasting plasma glucose results greater than or equal to 126 mg/dL meet the criteria for diagnosis of diabetes. In the absence of unequivocal hyperglycemia, results should be confirmed by repeat testing. In a patient with classic symptoms of hyperglycemia or hyperglycemic crisis, random plasma glucose results greater than or equal to 200 mg/dL meet the criteria for diagnosis of diabetes. Reference: Standards of Medical Care in Diabetes 2016, [place] Diabetes Association. Diabetes Care. 2016.39(Suppl 1). Performed By: #### 2 43204-15, 2131-10 ####[facility] LABIA [id number] [place] [address] [place] Potassium [Moles/Vol] 4.7 mmol/L Normal 3.7-5.1 [facility] Comment on above: Order Comment: Speci men Type: BLOOD SPECIMENOrdering Facility: [facility] Address: [address] [place] [address] Performed By: #### 2 4323-8, 2131-10 ####[facility] LABIA [id number] [place] [address] [place] Protein [Mass/Vol] 7.2 g/dL Normal 6.3-8.0 [facility] Comment on above: Order Comment: Speci men Type: BLOOD SPECIMENOrdering Facility: [facility] Address: [address] [place] [address] Performed By: #### 2 4323-8, 2131-10 ####[facility] LABCLIA [id number] [address] [address] [place] Sodium [Moles/Vol] 139 mmol/L Normal 136-144 [facility] Comment on above: Order Comment: Speci men Type: BLOOD SPECIMENOrdering Facility: [facility] Address: [address] [place] [address] Performed By: #### 2 4323-8, 2131-10 ####[facility] LABCLIA [id number] [place] [address] [place] Urea nitrogen [Mass/Vol] 25 mg/dL High 7- [facility] Comment on above: Order Comment: Speci men Type: BLOOD SPECIMENOrdering Facility: [facility] Address: [address] [place] [address] Performed By: #### 2 4328, 2131-10 ####[facility] LABCLIA [id number] [address] [address] [place] Lipid 1996 panelon 4 Cholesterol [Mass/Vol] 221 mg/dL High <200 [facility] Comment on above: Order Comment: Speci men Type: BLOOD SPECIMENOrdering Facility: [facility] Address: [address] [place] [address] Result Comment: <200 mg/dL, Desirable 200-239 mg/dL, Borderline high >239 mg/dL, High Performed By: #### 2 4331-1, 3051-0, 3024-7, 3016-3 ####[facility] LABIA [id number] [address] [address] [place] Cholesterol in HDL [Mass/Vol] 38 mg/dL Low >39 [facility] Comment on above: Order Comment: Speci men Type: BLOOD SPECIMENOrdering Facility: [facility] Address: [address] [place] [address] Result Comment: 40-5 9 mg/dL, Acceptable >59 mg/dL, High: Negative risk factor for coronary heart disease <40 mg/dL, Low: Positive risk factor for coronary heart disease Performed By: #### 2 4331-1, 3051-0, 3024-7, 6-3 ####[facility] LABCLIA [id number] [facility] [address] [address] [place] Cholesterol in LDL [Mass/Vol] 148 mg/dL High <100 [facility] Comment on above: Order Comment: Speci men Type: BLOOD SPECIMENOrdering Facility: [facility] Address: [address] [place] [address] Result Comment: <100 mg/dL, Optimal 100-129 mg/dL, Near optimal/above optimal 130-159 mg/dL, Borderline high 160-189 mg/dL, High >189 mg/dL, Very high Secondary prevention optimal LDL Cholesterol levels are recommended to be < 70 mg/dL Performed By: #### 2 4331-1, 3051-0, 3023-7, 6-3 ####[facility] LABCLIA [id number] [place] [address] [place] Cholesterol in LDL/Cholesterol in HDL [Mass ratio] 3.89 {ratio} High <2.54 [facility] Comment on above: Order Comment: Speci men Type: BLOOD SPECIMENOrdering Facility: [facility] Address: [address] [place] [address] Result Comment: Refrj rence: 1. National Cholesterol Education Program ATP III Guideline At-A-Glance Quick Desk Reference: National Heart, Lung, and Blood [place]. National Institutes of Health. 2001: NIH Publication No. 01-3305. 2. An International Atherosclerosis Society position paper: global recommendations for the management of dyslipidemia: executive summary, Atherosclerosis. 2014: 232(2):410-413. Performed By: #### 2 4331-1, 3051-0, 3024-7, 6-3 ####[facility] LABCLIA [id number] [address] [address] [place] Cholesterol in VLDL [Mass/Vol] 35 mg/dL High <30 [facility] Comment on above: Order Comment: Speci men Type: BLOOD SPECIMENOrdering Facility: [facility] Address: [address] [place] [address] Performed By: #### 2 4331-1, 3051-0, 3024-7, 3016-3 ####[facility] LABCLIA [id number] [place] [address] [place] Cholesterol non HDL [Mass/Vol] 183 mg/dL High <130 [facility] Comment on above: Order Comment: Speci men Type: BLOOD SPECIMENOrdering Facility: [facility] Address: [address] [place] [address] Result Comment: <130 mg/dL, Optimal 130-159 mg/dL, Near optimal/above optimal 160-189 mg/dL, Borderline high 190-219 mg/dL, High >219 mg/dL, Very high Secondary prevention optimal non HDL Cholesterol levels are recommended to be <100 mg/dL Performed By: #### 2 4331-1, 3051-0, 3024-7, 3016-3 ####[facility] LABCLIA [id number] [place] [address] [place] Cholesterol.total/Chol esterol in HDL [Mass ratio] 5.82 {ratio} High <5.10 [facility] Comment on above: Order Comment: Speci men Type: BLOOD SPECIMENOrdering Facility: [facility] Address: [address] [place], [place] [address] Performed By: #### 2 4331-1, 3051-0, 3024-7, 3016-3 ####[facility] LABCLIA [id number] [place] [id number] [place] FASTING TIME 12 hrs Normal [facility] Comment on above: Order Comment: Speci men Type: BLOOD SPECIMENOrdering Facility: [facility] Address: [address] [place] [address] Performed By: #### 2 4331-1, 305-0, 3023-08, 3015-3 ####[facility] LABCLIA [id number] [place] [address] [place] Triglyceride [Mass/Vol] 175 mg/dL High <150 [facility] Comment on above: Order Comment: Speci men Type: BLOOD SPECIMENOrdering Facility: [facility] Address: [address] [place] [address] Result Comment: <150 mg/dL, Normal 150-199 mg/dL, Borderline high 200-499 mg/dL, High >499 mg/dL, Very high Performed By: #### 2 4331-1, 3050-0, 3023-08, 3 ####[facility] LABCLIA [id number] [place] [address] [place] T3Free SerPl-mCncon 20 24 Free T3 [Mass/Vol] 2.6 pg/mL Normal 2.3-4.1 [facility] Comment on above: Order Comment: Speci men Type: BLOOD SPECIMENOrdering Facility: [facility] Address: [address] [place] [address] Performed By: #### 2 4331-1, 3050-0, 3023-08, 3 ####[facility] LABCLIA [id number] [place] [address] [place] T4 Free SerPl-mCncon 2 024 Free T4 [Mass/Vol] 1.4 ng/dL Normal 0.9-1.7 [facility] Comment on above: Order Comment: Speci men Type: BLOOD SPECIMENOrdering Facility: [facility] Address: [address] [place] [address] Performed By: #### 2 4331-1, 305-0, 7, 3015-3 ####[facility] LABCLIA [id number] [place] [address] [place] TSH SerPl-aCncon 02-03-2024 TSH Qn 3.030 m[IU]/L Normal 0.270-4.200 [facility] Comment on above: Order Comment: Speci men Type: BLOOD SPECIMENOrdering Facility: [facility] Address: [address] [place] [address] Performed By: #### 2 4331-1, 3051-0, 3024-7, 3016-3 ####[facility] LABIA [id number] [address] [place] Vit B12 SerPl-mCncon 024 Cobalamin (Vitamin B12) [Mass/Vol] 197 pg/mL Low 232-1245 [facility] Comment on above: Order Comment: Speci men Type: BLOOD SPECIMENOrdering Facility: [facility] Address: [address] [place] [address] Performed By: #### 2 4323-8, 2132-9 ####[facility] LABIA [id number] [address] [place] CNPNon 12-27-2023 CNPN Telephone [facility] JILLIAN BURRELL ([id number]) 1960 F Date Time Provider Department 12/27/23 NIGEL CARRILLO [facility] During your visit today, we recorded the following information about you: Yolanda Collier LPN 12/27/2023 2:11 PM Signed Buddy from [employer] calling asking if there has been a faxed received from them for pt? Asking for a return call. Rozina Adkins LPN 12/30/2023 10:29 AM Signed Called [employer] and spoke to office staff, will refax request. Rozina Adkins LPN December 30, 2023 10:28 AM Lydia aCstro RN 12/30/2023 11:03 AM Signed [facility] returns call and reports that forms were completed previously in June 2023. She reports that forms were sent to PCP office on 06/10/2023 and signed/faxed back on 06/16/2023. She is asking if forms can be located and looked at. Question # 1 and # 3 need to be changed for patient to qualify. Question # 3 needs to say patient is completely incapable of standing from any other seated device. Fax # is [phone] Phone # is [phone] FABIOLA Garcia Mary, LPN 12/30/2023 11:44 AM Signed Called and spoke to Claudia at [facility] [employer] [place], will refax a new form to be filled out and updated. Patient needs office visit to be re evaluated and assessed. See phone encounter from 12/01/23 Previous form above [facility] desk for future appt. Called and left message for patient to schedule an appointment. Rozina Adkins LPN December 30, 2023 11:39 AM Allergies As of Date: 12/27/2023 Noted Allergy Reaction AUGMENTIN (AMOXICILLIN-POT CLAVUL*06/29/2023 8 - GI Upset Comments: Pt does not want to take medication again as it made her very sick. CODEINE 03/14/2020 9 - Itching OXYCODONE 07/31/2018 9 - Itching ZANAFLEX (TIZANIDINE) 06/29/2023 14 - Other: See Comments Comments: Made pt very anxious Date Reviewed: 08/04/2023 Reviewed by: Viv Schaeffer, FABIOLA - Fully Assessed Prescriptions as of 12/30/2023 - fluticasone (FLONASE) 50 mcg/actuation nasal spray Use 2 Sprays in each nostril once daily as needed for cold/allergy symptoms. Rinse mouth after use. - ergocalciferol 50,000 unit capsule (VITAMIN D2, DRISDOL) Take 1 capsule by mouth one time a week. - traZODone (DESYREL) 50 mg tablet TAKE 1 TABLET DAILY AT BEDTIME - gabapentin (NEURONTIN) 400 mg capsule TAKE 1 CAPSULE THREE TIMES A DAY WITH MEALS (MAY MAKE DROWSY) - levothyroxine (SYNTHROID) 88 mcg tablet Take 1 tablet by mouth once daily. - citalopram (CELEXA) 20 mg tablet Take 1 tablet by mouth once daily. - meclizine (ANTIVERT) 25 mg tab TAKE 1 TABLET THREE TIMES A DAY NEEDED FOR DIZZINESS - PEG 400-propylene glycol (SYSTANE ULTRA) 0.4-0.3 % ophthalmic solution Use 1 Drop in both eyes twice daily. - acetaminophen (TYLENOL) 500 mg tablet Take 1-2 tablets by mouth three times daily. Problem List As Of Date 12/27/2023 Noted Resolved Kidney stones [N20.0] Hypothyroid [E05.90] Depression [F32.A] Vertigo [R42] Obstructive sleep apnea syndrome [G47.33] Hypoxemia associated with sleep [G47.36] 10/17/2020 Encounter Status:Closed by ROZINA ADKINS on 12/30/23 [facility] Emili 12-01-2023 ESTRELLITA Telephone (JEAN PAULWS) JILLIAN BURRELL ([id number]) 1960 F Date Time Provider Department 12/01/23 ANGELIKA WILSON During your visit today, we recorded the following information about you: Angelika Wilson APRN.MYA 12/01/2023 8:11 AM Signed Received orders for lift chair. Patient needs recent appointment so this can be further discussed and ordered. Thank you Angelika Wilson APRN.Anita Kumari, FABIOLA 12/01/2023 8:58 AM Signed Pt called and is notified of providers message and instructions. Pt voices understanding, she states she has been seen about this. Last I see about lift chair is message from 06/04/23. Pt states the lift chair was ordered and is sitting in a warehouse somewhere because the insurance backed out. She states last she knew they were fighting her insurance. 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 She said if she needs to she would come in and be seen, but last she knew we were fighting with her insurance. Please call and advise. FABIOLA Bernard Joy, APRN.MYA 12/01/2023 9:08 AM Signed Yes, I received another order form for this from the supplier. I know nothing of insurance stance on this. If she needs it filled out again, she needs seen. Thank you Angelika Wilson APRN.Mamta Bender RN 12/01/2023 9:18 AM Signed Patient calls back and notified of below. Patient voiced understanding. Patient scheduled to see Angelika tomorrow 12/02/2023. Mamta Spann RN Allergies As of Date: 12/01/2023 Noted Allergy Reaction AUGMENTIN (AMOXICILLIN-POT CLAVUL*06/29/2023 8 - GI Upset Comments: Pt does not want to take medication again as it made her very sick. CODEINE 03/14/2020 9 - Itching OXYCODONE 07/31/2018 9 - Itching ZANAFLEX (TIZANIDINE) 06/29/2023 14 - Other: See Comments Comments: Made pt very anxious Date Reviewed: 08/04/2023 Reviewed by: Viv Schaeffer, FABIOLA - Fully Assessed Reason for Visit: Orders [681] Appointment [186] Prescriptions as of 12/01/2023 - fluticasone (FLONASE) 50 mcg/actuation nasal spray Use 2 Sprays in each nostril once daily as needed for cold/allergy symptoms. Rinse mouth after use. - ergocalciferol 50,000 unit capsule (VITAMIN D2, DRISDOL) Take 1 capsule by mouth one time a week. - traZODone (DESYREL) 50 mg tablet TAKE 1 TABLET DAILY AT BEDTIME - gabapentin (NEURONTIN) 400 mg capsule TAKE 1 CAPSULE THREE TIMES A DAY WITH MEALS (MAY MAKE DROWSY) - levothyroxine (SYNTHROID) 88 mcg tablet Take 1 tablet by mouth once daily. - citalopram (CELEXA) 20 mg tablet Take 1 tablet by mouth once daily. - meclizine (ANTIVERT) 25 mg tab TAKE 1 TABLET THREE TIMES A DAY NEEDED FOR DIZZINESS - PEG 400-propylene glycol (SYSTANE ULTRA) 0.4-0.3 % ophthalmic solution Use 1 Drop in both eyes twice daily. - acetaminophen (TYLENOL) 500 mg tablet Take 1-2 tablets by mouth three times daily. Problem List As Of Date 12/01/2023 Noted Resolved Kidney stones [N20.0] Hypothyroid [E05.90] Depression [F32.A] Vertigo [R42] Obstructive sleep apnea syndrome [G47.33] Hypoxemia associated with sleep [G47.36] 10/17/2020 Encounter Status:Closed by MAMTA SPANN on 12/01/23 [facility] 07-06-2023 CNPN Telephone (AGSPINE3) JILLIAN BURRELL ([id number]) 1960 F Date Time Provider Department 07/06/23 NBA CACERES AGSPINE3 During your visit today, we recorded the following information about you: Kishore Victor 07/06/2023 2:24 PM Signed Patient called in stating she was put on an antibiotic (Penicillin) for a possible tooth infection per her dentist. Patient has not started the antibiotic yet and is wondering if she can have the injection then start on the antibiotic. Routed to Dr Caceres to advise. Patient is scheduled for the procedure on 07/09/2023 in [place] [employer] to Dr. Nba Caceres MD / Josefina Abraham CNP UPHOLSTERY CUTTER [facility] [place] [address] [place] [address] Phone. [phone] / Fax. [phone] Nba Caceres MD 07/06/2023 2:40 PM Signed Unfortunately, we will need to reschedule. It is not taking the antibiotic that is the issue, but rather why the antibiotic is being prescribed - a possible infection. Nba Caceres III, MD, Kishore Chapin 07/06/2023 3:28 PM Signed Patient would like to reschedule procedure in [place] on August 10 Kishore Victor Sales Planner to Dr. Nba Caceres MD / Josefina Abraham CNP, APRN [facility] [place] [address] [place] [address] Phone. [phone] / Fax. [phone] Allergies As of Date: 07/06/2023 Noted Allergy Reaction AUGMENTIN (AMOXICILLIN-POT CLAVUL*06/29/2023 8 - GI Upset Comments: Pt does not want to take medication again as it made her very sick. CODEINE 03/14/2020 9 - Itching OXYCODONE 07/31/2018 9 - Itching ZANAFLEX (TIZANIDINE) 06/29/2023 14 - Other: See Comments Comments: Made pt very anxious Date Reviewed: 06/29/2023 Reviewed by: Antonia Wagoner RN - Fully Assessed Reason for Visit: Patient Question [1987] Prescriptions as of 07/06/2023 - fluticasone (FLONASE) 50 mcg/actuation nasal spray Use 2 Sprays in each nostril once daily as needed for cold/allergy symptoms. Rinse mouth after use. - ergocalciferol 50,000 unit capsule (VITAMIN D2, DRISDOL) Take 1 capsule by mouth one time a week. - traZODone (DESYREL) 50 mg tablet TAKE 1 TABLET DAILY AT BEDTIME - gabapentin (NEURONTIN) 400 mg capsule TAKE 1 CAPSULE THREE TIMES A DAY WITH MEALS (MAY MAKE DROWSY) - levothyroxine (SYNTHROID) 88 mcg tablet Take 1 tablet by mouth once daily. - citalopram (CELEXA) 20 mg tablet Take 1 tablet by mouth once daily. - meclizine (ANTIVERT) 25 mg tab TAKE 1 TABLET THREE TIMES A DAY NEEDED FOR DIZZINESS - PEG 400-propylene glycol (SYSTANE ULTRA) 0.4-0.3 % ophthalmic solution Use 1 Drop in both eyes twice daily. - acetaminophen (TYLENOL) 500 mg tablet Take 1-2 tablets by mouth three times daily. Problem List As Of Date 07/06/2023 Noted Resolved Kidney stones [N20.0] Hypothyroid [E05.90] Depression [F32.A] Vertigo [R42] Obstructive sleep apnea syndrome [G47.33] Hypoxemia associated with sleep [G47.36] 10/17/2020 Encounter Status:Closed by NBA CACERES on 07/06/23 Normal [facility] Absolute lymphocyte countOrd ered By: Doni Cherry on 06-14-2023 Lymphocytes Auto (Unsp spec) [#/Vol] 2.09 10*3/uL 0.83-4.51 [facility] Automated lymphocyte count a s percentage of total leukocytesOrdered By: Doni Cherry on 06-14-2023 Lymphocytes/100 WBC Auto (Unsp spec) 46.3 % 19-41 [facility] Basophil percentageOrdered B y: Doni Cherry on 06-14-2023 Basophils/100 WBC (Bld) 0.7 % 0-1 [facility] Chloride [Moles/Vol] 104 mmol/L 98-107 [facility] Eosinophils/100 WBC (Bld) 3.3 % 0-5 [facility] Glucose [Mass/Vol] 112 mg/dL 74-106 [facility] Comment on above: Fasting Glucose resu lt from 100 to 125 mg/dL suggests IMPAIRED HOMEOSTASIS per A.D.A. criteria. Hemoglobin (Bld) [Mass/Vol] 14.3 g/dL 12.0-15.0 [facility] Monocytes/100 WBC (Bld) 7.5 % 0-10 [facility] Neutrophils (Bld) [#/Vol] 1.9 10*3/uL 2.0-7.7 [facility] Neutrophils/100 WBC (Bld) 41.5 % 47-70 [facility] Potassium [Moles/Vol] 4.1 mmol/L 3.5-5.1 [facility] Comment on above: Slight Hemolysis, Re sult may be falsely increased. Sodium [Moles/Vol] 138 mmol/L 136-145 [facility] WBC (Bld) [#/Vol] 4.5 10*3/uL 4.4-11.0 [facility] Blood manual differential co mment interpretation (narrative result)Ordered By: Doni Cherry on 06-14-2023 Manual differential comment Carlitos (Bld) [Interp] See comment [facility] Comment on above: Please note: For thi s sample, a platelet estimate is provided rather than a platelet count due to platelet clumping. Other parameters associated with this sample are not affected by platelet clumping. If a more accurate platelet count is required, a redraw of the patient will be necessary. Blood platelet adequacy dete ction by light microscopyOrdered By: Doni Cherry on 06-14-2023 Platelets LM Ql (Bld) SLT DEC ADEQ [facility] Determination of erythrocyte mean corpuscular volume (MCV)Ordered By: Doni Cherry on 06-14-2023 MCV (RBC) [Entitic vol] 93.9 fL 81-99 [facility] Erythrocyte distribution wid th ratioOrdered By: Doni Cherry on 06-14-2023 Erythrocyte distribution width (RBC) [Ratio] 12.9 % 11.6-14.6 [facility] Erythrocyte distribution wid th standard deviationOrdered By: Doni Cherry on 06-14-2023 Erythrocyte distribution width (RBC) [Entitic vol] 44.2 fL 35.1-43.9 [facility] Hematocrit Auto (Bld) [Volum e fraction]Ordered By: Doni Cherry on 06-14-2023 Hematocrit (Bld) [Volume fraction] 43.1 % 37-47 [facility] Immature granulocytes/100 WB C Auto (Bld)Ordered By: Doni Cherry on 06-14-2023 Immature granulocytes/100 WBC (Bld) 0.700 % 0.0-0.9 [facility] Comment on above: IG% - Immature Granu locytes (promyelocytes, myelocytes and metamyelocytes) > 1% indicates that a LEFT SHIFT is Present. Laboratory - Chemistry and C hemistry - challengeOrdered By: Doni Cherry on 06-14-2023 CO2 [Moles/Vol] 31.0 mmol/L 21.0-32.0 [facility] Natriuretic peptide B (Bld) [Mass/Vol] 26.5 pg/mL 0-100 [facility] Urea nitrogen/Creatinine [Mass ratio] 22.8 mg/mg 10-20 [facility] Laboratory - Hematology and Cell countsOrdered By: Doni Cherry on 06-14-2023 MCH (RBC) [Entitic mass] 31.2 pg 27.0-32.0 [facility] MCHC (RBC) [Mass/Vol] 33.2 g/dL 32-36 [facility] Nucleated RBC/100 WBC (Bld) [Ratio] 0 % 0-5 [facility] Platelet mean volume (Bld) [Entitic vol] 11.0 fL 6.2-12.0 [facility] No Panel InformationOrdered By: Doni Cherry on 06-14-2023 Estimated Creatinine Clearance Calc 89.93 ml/min [facility] Estimated GFR (MDRD) Amer 71 mL/min >60 [facility] Comment on above: GFR Calc Estimated GFR (MDRD) Non-Af Amer 59 mL/min >60 [facility] Comment on above: Non- GFR Calc Platelet Count TNP [facility] Comment on above: Test not performedPr evious reported result: 145 [id number] by: KELSY on 06/14/23:1803 AMENDED REPORT 06/14/231803 PLT previously reported as: 145 L K/mm3 is provided rather than a platelet count due to platelet clumping. Other parameters associated with this sample are not affected by platelet clumping. If a more accurate platelet count is required, a redraw of the patient will be necessary. Troponin I High Sensitivity 8 pg/mL 3.0-54.0 [facility] Comment on above: Please Note: New Rianna t Units and Gender Specific Reference Ranges. For more information see Policy Stat Procedure [place] High Sensitivity Troponin (TNIH) and attachments. RBC Auto (Bld) [#/Vol]Ordere d By: Doni Cherry on 06-14-2023 RBC (Bld) [#/Vol] 4.59 10*6/uL 4.2-5.4 [facility] Serum or plasma calcium camilo urement (mass/volume)Ordered By: Doni Cherry on 06-14-2023 Calcium [Mass/Vol] 9.0 mg/dL 8.5-10.1 [facility] Serum or plasma creatinine m easurement (mass/volume)Ordered By: Doni Cherry on 06-14-2023 Creatinine [Mass/Vol] 1.01 mg/dL 0.55-1.02 [facility] Comment on above: The validity of the calculated GFR & GFRAA in patients over 70 years has not been determined. Clinical correlation is essential. Serum or plasma urea nitroge n measurement (mass/volume)Ordered By: Doni Cherry on 06-14-2023 Urea nitrogen [Mass/Vol] 23 mg/dL 7-18 [facility] Thin prep Papanicolaou smear with manual screeningOrdered By: Doin Cherry on 06-14-2023 Thin prep Papanicolaou smear with manual screening 3 5-15 [facility] CNCOon 06-03-2023 CNCO Letter Text Normal [facility] CNOVon 06-03-2023 CNOV Office Visit (SPAGWO ) JILLIAN BURRELL ([id number]) 1960 F Date Time Provider Department 06/03/23 11:30 AM NBA CACERES During your visit today, we recorded the following information about you: Pulse Respiration 69/minute 16/minute Nba Caceres MD 06/03/2023 12:17 PM Signed [facility] Today's Date: 06/03/2023 Name: Jillian Burrell : 1960 Purpose: New Patient Consultation Chief complaint: Low back pain Referring Clinician: Angelika Wilson APRN.D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 Pertinent Past Medical History: FREEMAN, Hypothyroid, MDD, Vertigo , morbid obesity Pertinent Past Surgeries: Heel-calcaneus (Bilateral), History of Present Illness (HPI): 06/03/2023 - Initial HPI (Obtained by Minerva Caceres, M.D.). DURATION AND ONSET: The pain complaint has been present for approximately 5 years. The pain had a gradual onset. The mechanism of injury is unknown. She has had prior x-rays showing generalized arthritis in her low back. She had a fall remotely and fractured her tailbone. The pain has slowly worsened over time, she has been using a straight cane for community distances. More than 3 years ago, saw a doctor in our practice, recommended PT and exercises, topical medications. RED FLAG SYMPTOMS: denies red flags. PAIN DESCRIPTION: Timing: Constant Character: Aching, Burning Primary Location: axial low back Radiation: bilateral proximal lateral thighs Exacerbating factors: Standing, Walking Relieving factors: Sitting, Lying Down Interferes with: physical activity and walking Current Pain Medications: Neuropathics: Gabapentin 400mg BID - makes drowsy, recently increased from qHS to BID NSAIDS: Renal disease - discontinued Mobic Muscle Relaxants: Topicals: Other Prescription or OTC Pain Medications: Tylenol 500mg, CPAP/BIPAP Opioids (when applicable): Anti-depressants or Mood-Stabilizers: Celexa 20mg, Trazodone 50mg Anti-Coagulants: None Therapies Attended (Current or Most Recent): No Current Therapies 04/04/2020 06/03/2023 AG SPINE COMBINATION Questionnaire GREENLIGHT GREENLIGHT Completed Date 04/04/2020 06/03/2023 Questionnaire Opiod Risk Tool Opiod Risk Tool Completed Date 04/04/2020 06/03/2023 Comments 0 - Low Risk Greenlight Questionnaire GREENLIGHT Completed Date 06/03/2023 Opioid Risk Tool Opiod Risk Tool Date Completed 06/03/2023 Comments 0 - Low Risk LATOYA-7 Anxiety Score 2 Completed Date 06/03/2023 PHQ9P Score 9 Completed Date 06/03/2023 (All drug screens are appropriate unless indicated otherwise) Treatment History: PAIN PROCEDURES: DATE PROCEDURE IMPROVEMENT No interventional pain management procedures performed prior to being evaluated at this practice. MEDICATIONS Taken TO DATE (for the chief complaint(s)): Neuropathics: Neurontin (Gabapentin) NSAIDS: Mobic (Meloxicam) Muscle Relaxants: Flexeril (Cyclobenzaprine), Zanaflex (Tizanidine) Topicals: Voltaren (Gel) Other Prescription or OTC Pain Medications: Tylenol (Acetaminophen) Opioids: Hydrocodone (eg Machias) Compliance: PDMP website checked and validated on 06/03/2023 by Nba Caceres MD All prescriptions have been APPROPRIATELY filled. No suspicious activity was identified. Neurontin 400mg TID (PCP - current) 04/04/2020 06/03/2023 AG SPINE COMBINATION Questionnaire GREENLIGHT GREENLIGHT Completed Date 04/04/2020 06/03/2023 Questionnaire Opiod Risk Tool Opiod Risk Tool Completed Date 04/04/2020 06/03/2023 Comments 0 - Low Risk (All drug screens are appropriate unless indicated otherwise) Risk Assessment: LATOYA-7: 10/08/2020 12/15/2020 06/03/2023 LATOYA - 7 SCORES Score 3 6 2 (0-4) minimal anxiety, (5-9) mild anxiety, (10-14) moderate anxiety, (15-21) severe anxiety PHQ-9: 12/26/2021 11/20/2022 06/03/2023 PHQ-9 Score 15 13 9 (0-4) minimal depression, (5-9) mild depression, (10-14) moderate depression, (15-19) moderately severe depression, (20-27) severe depression Opioid Risk Tool: Family History of Substance Abuse: 0 - No Personal History of Substance Abuse: 0 - No Age between 16-45: 0 - No History of Pre-Adolescence Sexual Abuse: 0 - No Psychological Disease: 0 - No ADD/ADHD/OCD/Bipolar/Sc hizophrenia: No Risk Total: 0 Total Score Risk Category: Low Risk 0-3 (0-3, low risk or no risk; 4-7, moderate risk, 8+, high risk) Diagnostic Studies: Relevant Imaging: MRI Spine Report No resulted procedures found. MRI Lumbar 08/2020 X-ray Lumbar / Bilat Hip / Pelvis 03/2020 LUMBAR SPINE: Disc space narrowing at multiple levels severe L5-S1 level. Stents tubes and severe degenerative changes in the posterior elements. Mild LEFT convex rotoscoliosis.. (more content not included)... Normal [facility] CNPNon 06-03-2023 CNPN Telephone (SPAGWO) JILLIAN BURRELL ([id number]) 1960 F Date Time Provider Department 06/03/23 NBA CACERES SPAGWO During your visit today, we recorded the following information about you: Kishore Victor 06/03/2023 12:24 PM Signed Procedure(s) being scheduled:Epidural Steroid Injection - Interlaminar Approach (ILESI) under fluoroscopic guidance MIDLINE at L4-5 1.Are you diabetic No 2. Are you on any blood thinners? No If yes, does it require a hold? No If yes, was approval letter sent? No 3. Are you taking any aspirin? No 4. Are you currently taking any antibiotics? Yes If yes, is it prophylactic or for treatment of an infection? Amoxicillin 4x a day 5. Do you have any allergies to latex? No 6. Do you have any allergies to seafood or shellfish? No 7. Do you have any allergies to x-ray dye? No 8. Did the physician instruct you to take any medication prior to your procedure? No 9. Does this procedure require a driver education road instructor? Yes If yes, has patient been notified that a driver education road instructor is needed and must be present at check in? Yes 10. Were the pre-procedure instructions explained and provided to the patient? Yes 11. Do you have a pacemaker? No 12. Do you have an internal stimulator of any kind? No If yes, please bring the remote with you to your procedure visit. 13. Have you received the COVID-19 Vaccine? No. If yes, date(s) received: N/A (Patient should not receive a procedure including steroids 14 days prior to their first dose of the COVID vaccine. They should not receive any procedure containing steroids in the time frame between their 1st and 2nd doses of the COVID vaccine. They should not receive a procedure containing steroids 14 days after their 2nd dose of the COVID vaccine.) Kishore Edith Allergies As of Date: 06/03/2023 Noted Allergy Reaction CODEINE 03/14/2020 9 - Itching OXYCODONE 07/31/2018 9 - Itching Date Reviewed: 06/03/2023 Reviewed by: Tasha Duke MA - Fully Assessed Reason for Visit: Injection Questions [Other] Prescriptions as of 06/03/2023 - ergocalciferol 50,000 unit capsule (VITAMIN D2, DRISDOL) Take 1 capsule by mouth one time a week. - traZODone (DESYREL) 50 mg tablet TAKE 1 TABLET DAILY AT BEDTIME - pseudoephedrine HCl (SUDAFED ORAL) Take by mouth. - gabapentin (NEURONTIN) 400 mg capsule TAKE 1 CAPSULE THREE TIMES A DAY WITH MEALS (MAY MAKE DROWSY) - levothyroxine (SYNTHROID) 88 mcg tablet Take 1 tablet by mouth once daily. - citalopram (CELEXA) 20 mg tablet Take 1 tablet by mouth once daily. - meclizine (ANTIVERT) 25 mg tab TAKE 1 TABLET THREE TIMES A DAY NEEDED FOR DIZZINESS - nystatin (MYCOSTATIN) ointment APPLY TO THE AFFECTED AREA TWICE A DAY - CPAP/BIPAP/OTHER Type .CPAPSettings into a note to see current settings/supplies/DME information. - MEDICAL SUPPLY Scooter to help with mobility out side the house - loratadine (CLARITIN) 10 mg tablet Take 1 tablet by mouth once daily. - PEG 400-propylene glycol (SYSTANE ULTRA) 0.4-0.3 % ophthalmic solution Use 1 Drop in both eyes twice daily. - gabapentin (NEURONTIN) 300 mg capsule AT BEDTIME - acetaminophen (TYLENOL) 500 mg tablet Take 1-2 tablets by mouth three times daily. Problem List As Of Date 06/03/2023 Noted Resolved Kidney stones [N20.0] Hypothyroid [E05.90] Depression [F32.A] Vertigo [R42] Obstructive sleep apnea syndrome [G47.33] Hypoxemia associated with sleep [G47.36] 10/17/2020 Encounter Status:Closed by KISHORE VICTOR on 06/03/23 Normal [facility] CBC panel Auto (Bld)on 11-12 Erythrocyte distribution width (RBC) [Ratio] 13.0 % 11.5 - 15.0 % [facility] Hematocrit (Bld) [Volume fraction] 46.6 % High 36.0 - 46.0 % [facility] Hemoglobin (Bld) [Mass/Vol] 14.9 g/dL 11.5 - 15.5 g/dL [facility] MCH (RBC) [Entitic mass] 30.6 pg 26.0 - 34.0 pg [facility] MCHC (RBC) [Mass/Vol] 32.0 g/dL 30.5 - 36.0 g/dL [facility] MCV (RBC) [Entitic vol] 95.7 fL 80.0 - 100.0 fL [facility] Nucleated RBC (Bld) [#/Vol] <0.01 k/uL [facility] Platelet mean volume (Bld) [Entitic vol] 10.9 fL 9.0 - 12.7 fL [facility] Platelets (Bld) [#/Vol] 229 10*3/uL 150 - 400 k/uL [facility] RBC (Bld) [#/Vol] 4.87 10*6/uL 3.90 - 5.2 0 m/uL [facility] WBC (Bld) [#/Vol] 5.76 10*3/uL 3.70 - 11. 00 k/uL [facility] Comprehensive metabolic 2000 panelon 11-12-2022 Albumin [Mass/Vol] 4.0 g/dL 3.9 - 4.9 g/dL [facility] ALP [Catalytic activity/Vol] 66 U/L 34 - 123 U/L [facility] ALT [Catalytic activity/Vol] 26 U/L 7 - 38 U/L [facility] Anion gap [Moles/Vol] 9 mmol/L 9 - 18 mmol/L [facility] AST [Catalytic activity/Vol] 24 U/L 13 - 35 U/L [facility] Bilirubin [Mass/Vol] 0.3 mg/dL 0.2 - 1 .3 mg/dL [facility] Calcium [Mass/Vol] 9.6 mg/dL 8.5 - 10. 2 mg/dL [facility] Chloride [Moles/Vol] 102 mmol/L 97 - 10 5 mmol/L [facility] CO2 [Moles/Vol] 27 mmol/L 22 - 30 mmol/L [facility] Creatinine [Mass/Vol] 1.15 mg/dL High 0.58 - 0.96 mg/dL [facility] Estimated Glomerular Filtration Rate 54 mL/min/1.73m Low >=60 mL/min/1.73m [facility] Glucose [Mass/Vol] 112 mg/dL High 74 - 99 mg/dL [facility] Potassium [Moles/Vol] 4.5 mmol/L 3.7 - 5.1 mmol/L [facility] Protein [Mass/Vol] 7.6 g/dL 6.3 - 8.0 g/dL [facility] Sodium [Moles/Vol] 138 mmol/L 136 - 144 mmol/L [facility] Urea nitrogen [Mass/Vol] 26 mg/dL High 7 - 21 mg/dL [facility] Lipid 1996 panelon 3 Cholesterol [Mass/Vol] 200 mg/dL High <200 mg/dL [facility] Cholesterol in HDL [Mass/Vol] 39 mg/dL Low >39 mg/dL [facility] Cholesterol in LDL [Mass/Vol] 120 mg/dL High <100 mg/dL [facility] Cholesterol in LDL/Cholesterol in HDL [Mass ratio] 3.08 {ratio} High <2.54 [facility] Cholesterol in VLDL [Mass/Vol] 41 mg/dL High <30 mg/dL [facility] Cholesterol non HDL [Mass/Vol] 161 mg/dL High <130 mg/dL [facility] Cholesterol.total/Chol esterol in HDL [Mass ratio] 5.13 {ratio} High <5.10 [facility] Fasting Time 10 hrs [facility] Triglyceride [Mass/Vol] 203 mg/dL High <150 mg/dL [facility] TSH BLDon 11-12-2022 TSH Qn 2.420 m[IU]/L 0.270 - 4.200 mIU/L [facility] Absolute lymphocyte counton 02-19-2022 Lymphocytes Auto (Unsp spec) [#/Vol] 2.21 10*3/uL 0.83-4.51 [facility] Work Phone: Basophil percentageon 2022 Basophils/100 WBC (Bld) 0.7 % 0-1 [facility] Work Phone: Chloride [Moles/Vol] 103 mmol/L 98-107 [facility] Work Phone: Eosinophils/100 WBC (Bld) 2.7 % 0-5 [facility] Work Phone: Glucose [Mass/Vol] 96 mg/dL 74-106 [facility] Work Phone: Neutrophils (Bld) [#/Vol] 3.9 10*3/uL 2.0-7.7 [facility] Work Phone: Neutrophils/100 WBC (Bld) 55.0 % 47-70 [facility] Work Phone: Potassium [Moles/Vol] 3.9 mmol/L 3.5-5.1 [facility] Work Phone: Sodium [Moles/Vol] 140 mmol/L 136-145 [facility] Work Phone: WBC (Bld) [#/Vol] 7.0 10*3/uL 4.4-11.0 [facility] Work Phone: Blood erythrocytes count (nu mber/volume)on 02-19-2022 RBC (Bld) [#/Vol] 4.46 10*6/uL 4.2-5.4 [facility] Work Phone: Blood hemoglobin measurement (mass/volume)on 02-19-2022 Hemoglobin (Bld) [Mass/Vol] 14.5 g/dL 12.0-15.0 [facility] Work Phone: Blood lymphocytes/100 leukoc yteson 02-19-2022 Lymphocytes/100 WBC (Bld) 31.4 % 19-41 [facility] Work Phone: Blood monocytes/100 leukocyt eson 02-19-2022 Monocytes/100 WBC (Bld) 9.5 % 0-10 [facility] Work Phone: [phone] Blood platelet mean volumeon 02-19-2022 Platelet mean volume (Bld) [Entitic vol] 9.9 fL 6.2-12.0 [facility] Work Phone: [phone] Determination of erythrocyte mean corpuscular volume (MCV)on 02-19-2022 MCV (RBC) [Entitic vol] 94.6 fL 81-99 [facility] Work Phone: [phone] Hematocrit Auto (Bld) [Volum e fraction]on 02-19-2022 Hematocrit (Bld) [Volume fraction] 42.2 % 37-47 [facility] Work Phone: [phone] Laboratory - Chemistry and C hemistry - challengeon 02-19-2022 CO2 [Moles/Vol] 31.0 mmol/L 21.0-32.0 [facility] Work Phone: [phone] Natriuretic peptide B (Bld) [Mass/Vol] 7.3 pg/mL 0-100 [facility] Work Phone: [phone] Urea nitrogen/Creatinine [Mass ratio] 20.4 mg/mg 10-20 [facility] Work Phone: [phone] Laboratory - Hematology and Cell countson 02-19-2022 Erythrocyte distribution width (RBC) [Entitic vol] 46.2 fL 35.1-43.9 [facility] Work Phone: [phone] Erythrocyte distribution width (RBC) [Ratio] 13.2 % 11.6-14.6 [facility] Work Phone: [phone] Immature granulocytes/100 WBC (Bld) 0.700 % 0.0-0.9 [facility] Work Phone: [phone] Comment on above: IG% - Immature Granu locytes (promyelocytes, myelocytes and metamyelocytes) > 1% indicates that a LEFT SHIFT is Present. MCH (RBC) [Entitic mass] 32.5 pg 27.0-32.0 [facility] Work Phone: [phone] Nucleated RBC/100 WBC (Bld) [Ratio] 0 % 0-5 [facility] Work Phone: MCHC Auto (RBC) [Mass/Vol]on 02-19-2022 MCHC (RBC) [Mass/Vol] 34.4 g/dL 32-36 [facility] Work Phone: No Panel Informationon 02-19 D-Dimer Quantitative (PE/DVT) 0.50 FEU/ug/m 0.27-0.49 [facility] Work Phone: Comment on above: D-Dimer ELEVATED (>0 .49): Additional studies and clinicalassessments are indicated to conclude diagnosis of:Deep Vein Thrombosis (DVT) or Pulmonary Embolism (PE)CRITICAL VALUE VERIFIED. CALLED TO TAPAN MARTELL02/19/221955 Sonal Allred.RESULTS READ BACK BY SAME . Estimated Creatinine Clearance Calc 60.04 ml/min [facility] Work Phone: [phone] Estimated GFR (MDRD) Amer 74 mL/min >60 [facility] Work Phone: Comment on above: GFR Calc Estimated GFR (MDRD) Non-Af Amer 61 mL/min >60 [facility] Work Phone: Comment on above: Non- GFR Calc Troponin I High Sensitivity 7 pg/mL 3.0-54.0 [facility] Work Phone: Comment on above: Please Note: New Rian[place] t Units and Gender Specific Reference Ranges. For more information see Policy Stat Procedure [place] High Sensitivity Troponin (TNIH) and attachments. Platelets bldon 02-19-2022 Platelets (Bld) [#/Vol] 212 10*3/uL 150-450 [facility] Work Phone: [phone] Serum or plasma calcium camilo urement (mass/volume)on 02-19-2022 Calcium [Mass/Vol] 9.1 mg/dL 8.5-10.1 [facility] Work Phone: [phone] Serum or plasma creatinine m easurement (mass/volume)on 02-19-2022 Creatinine [Mass/Vol] 0.98 mg/dL 0.55-1.02 [facility] Work Phone: [phone] Comment on above: The validity of the calculated GFR & GFRAA in patients over 70 years has not been determined. Clinical correlation is essential. Serum or plasma urea nitroge n measurement (mass/volume)on 02-19-2022 Urea nitrogen [Mass/Vol] 20 mg/dL 7-18 [facility] Work Phone: Thin prep Papanicolaou smear with manual screeningon 02-19-2022 Thin prep Papanicolaou smear with manual screening 6 5-15 [facility] Work Phone: No Panel Informationon 03-14 IMPRESSION: Degenerative changes as discussed Manager Clinical Services: VIOLA Transcribe Date/Time: Mar 14 2020 11:59A Dictated by : ADIS NAZARIO DO This examination was interpreted and the report reviewed and electronically signed by: ADIS NAZARIO DO on Mar 14 2020 12:01PM [facility] DIVISION OF RADIOLOGY Radiology Study observation (narrative) [facility] No Panel InformationOrdered By: Ccf Provider on 03-14-2020 [facility] XR HIP BILAT 5V PEL/AP/LAT E ACH HIPon 03-14-2020 * * *Final Report* * * DATE OF EXAM: Mar 14 2020 11:43AM WOX 5353 - XR HIP ENA 5V PEL+ AP/LAT EA HIP / PROCEDURE REASON: Hip arthritis * * * * Physician Interpretation * * * * LUMBAR SPINE/PELVIS AND BOTH HIPS HISTORY: Indication: Lumbar and sacral arthritis Lower back pain that radiates down both hips chronically. Hx of prior falls. TECHNIQUE: Views obtained: XR LUMBAR 3V AP/LAT/L5-S1, XR HIP ENA 5V PEL+ AP/LAT EA HIP Comparison: None. RESULT: Findings: LUMBAR SPINE: Disc space narrowing at multiple levels severe L5-S1 level. Stents tubes and severe degenerative changes in the posterior elements. Mild LEFT convex rotoscoliosis.. Loss of the normal lordotic curvature No fractures or dislocations are seen. PELVIS AND Both hips : Pelvis: No fractures or dislocations are seen. Bone density appears well preserved. Sacroiliac joints are patent Hip joints are well preserved. Right hip: No fractures or dislocations are seen. Left hip: No fractures or dislocations are seen. DIVISION OF RADIOLOGY Provider, Day Bennett [facility] - 03/14/2020 * * *Final Report* * * DATE OF EXAM: Mar 14 2020 11:43AM WOX 5353 - XR HIP ENA 5V PEL+ AP/LAT EA HIP / PROCEDURE REASON: Hip arthritis * * * * Physician Interpretation * * * * LUMBAR SPINE/PELVIS AND BOTH HIPS HISTORY: Indication: Lumbar and sacral arthritis Lower back pain that radiates down both hips chronically. Hx of prior falls. TECHNIQUE: Views obtained: XR LUMBAR 3V AP/LAT/L5-S1, XR HIP ENA 5V PEL+ AP/LAT EA HIP Comparison: None. RESULT: Findings: LUMBAR SPINE: Disc space narrowing at multiple levels severe L5-S1 level. Stents tubes and severe degenerative changes in the posterior elements. Mild LEFT convex rotoscoliosis.. Loss of the normal lordotic curvature No fractures or dislocations are seen. PELVIS AND Both hips : Pelvis: No fractures or dislocations are seen. Bone density appears well preserved. Sacroiliac joints are patent Hip joints are well preserved. Right hip: No fractures or dislocations are seen. Left hip: No fractures or dislocations are seen. IMPRESSION IMPRESSION: Degenerative changes as discussed Manager Clinical Services: VIOLA Transcribe Date/Time: Mar 14 2020 11:59A Dictated by : ADIS NAZARIO DO This examination was interpreted and the report reviewed and electronically signed by: ADIS NAZARIO DO on Mar 14 2020 12:01PM [facility] XR Lumbar spine 3 Viewson * * *Final Report* * * DATE OF EXAM: Mar 14 2020 11:43AM WOX 5228 - XR LUMBAR 3V AP/LAT/L5-S1 / PROCEDURE REASON: Lumbar and sacral arthritis * * * * Physician Interpretation * * * * LUMBAR SPINE/PELVIS AND BOTH HIPS HISTORY: Indication: Lumbar and sacral arthritis Lower back pain that radiates down both hips chronically. Hx of prior falls. TECHNIQUE: Views obtained: XR LUMBAR 3V AP/LAT/L5-S1, XR HIP ENA 5V PEL+ AP/LAT EA HIP Comparison: None. RESULT: Findings: LUMBAR SPINE: Disc space narrowing at multiple levels severe L5-S1 level. Stents tubes and severe degenerative changes in the posterior elements. Mild LEFT convex rotoscoliosis.. Loss of the normal lordotic curvature No fractures or dislocations are seen. PELVIS AND Both hips : Pelvis: No fractures or dislocations are seen. Bone density appears well preserved. Sacroiliac joints are patent Hip joints are well preserved. Right hip: No fractures or dislocations are seen. Left hip: No fractures or dislocations are seen. DIVISION OF RADIOLOGY Provider, Day Bennett [facility] - 03/14/2020 * * *Final Report* * * DATE OF EXAM: Mar 14 2020 11:43AM WOX 5228 - XR LUMBAR 3V AP/LAT/L5-S1 / PROCEDURE REASON: Lumbar and sacral arthritis * * * * Physician Interpretation * * * * LUMBAR SPINE/PELVIS AND BOTH HIPS HISTORY: Indication: Lumbar and sacral arthritis Lower back pain that radiates down both hips chronically. Hx of prior falls. TECHNIQUE: Views obtained: XR LUMBAR 3V AP/LAT/L5-S1, XR HIP ENA 5V PEL+ AP/LAT EA HIP Comparison: None. RESULT: Findings: LUMBAR SPINE: Disc space narrowing at multiple levels severe L5-S1 level. Stents tubes and severe degenerative changes in the posterior elements. Mild LEFT convex rotoscoliosis.. Loss of the normal lordotic curvature No fractures or dislocations are seen. PELVIS AND Both hips : Pelvis: No fractures or dislocations are seen. Bone density appears well preserved. Sacroiliac joints are patent Hip joints are well preserved. Right hip: No fractures or dislocations are seen. Left hip: No fractures or dislocations are seen. IMPRESSION IMPRESSION: Degenerative changes as discussed Manager Clinical Services: [facility] Transcribe Date/Time: Mar 14 2020 11:59A Dictated by : ADIS NAZARIO DO This examination was interpreted and the report reviewed and electronically signed by: ADIS NAZARIO DO on Mar 14 2020 12:01PM EST [facility] Vitamin D 25 Hydroxyon 11-07 Vitamin D 25 Hydroxy 27.6 ng/mL Low 31.0-80.0 [facility] Comment on above: Performed By: #### V ITD #### [facility] Routine Lab [address] [place], [place] [address] Free T4on 06-01-2019 Free T4 [Mass/Vol] 1.0 ng/dL Normal 0.9-1.7 [facility] Reference Lab Comment on above: Performed By: #### F T4, TSH #### [facility] Routine Lab [address] [place], [place] [id number] TSHon 06-01-2019 TSH Qn 5.940 uU/mL High 0.270-4.200 [facility] Comment on above: Performed By: #### F T4, TSH #### [facility] Routine Lab [address] [place], [place] [id number] Vital Signs Date Time Vital Sign Value Performing Clinician Pantera leiva 07-14-2024 14:14-0400 Body mass index (BMI) [Ratio] 49.02 kg/m2 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 Work Phone: [facility] 07-14-2024 14:14-0400 Body weight 141.98 kg 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 Work Phone: [facility] 07-14-2024 14:14-0400 Diastolic blood pressure 78 mm[Hg] 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 Work Phone: [facility] 07-14-2024 14:14-0400 Heart rate 70 /min 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 Work Phone: [facility] 07-14-2024 14:14-0400 SaO2% (BldA) [Mass fraction] 98 % 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 Work Phone: [facility] 07-14-2024 14:14-0400 Systolic blood pressure 126 mm[Hg] 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 Work Phone: [facility] 02-03-2024 10:07-0500 Body height 170.2 cm 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 Work Phone: [facility] 02-03-2024 10:07-0500 Body mass index (BMI) [Ratio] 48.08 kg/m2 Angelika Older 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 Work Phone: [facility] 02-03-2024 10:07-0500 Body temperature 96.91 [degF] 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 Work Phone: [facility] 02-03-2024 10:07-0500 Body weight 139.25 kg 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 Work Phone: [facility] 02-03-2024 10:07-0500 Diastolic blood pressure 72 mm[Hg] 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 Work Phone: [facility] 02-03-2024 10:07-0500 Heart rate 85 /min 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 Work Phone: [facility] 02-03-2024 10:07-0500 Respiratory rate 22 /min 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 Work Phone: [facility] 02-03-2024 10:07-0500 SaO2% (BldA) [Mass fraction] 97 % 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 Work Phone: [facility] 02-03-2024 10:07-0500 Systolic blood pressure 112 mm[Hg] 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 Work Phone: [facility] 06-14-2023 19:23-0400 Body temperature 98.3 [degF] Dr. Nigel Carrillo Work Phone: [facility] 06-14-2023 19:23-0400 Diastolic blood pressure 84 mm[Hg] Dr. Nigel Carrillo Work Phone: [facility] 06-14-2023 19:23-0400 Heart rate 88 /min Dr. Nigel Carrillo Work Phone: [facility] 06-14-2023 19:23-0400 Respiratory rate 16 /min Dr. Nigel Carrillo Work Phone: [facility] 06-14-2023 19:23-0400 SaO2% (BldA) [Mass fraction] 100 % Dr. Nigel Carrillo Work Phone: [facility] 06-14-2023 19:23-0400 Systolic blood pressure 151 mm[Hg] Dr. Nigel Carrillo Work Phone: [facility] 06-14-2023 16:46-0400 Body height 170.[address] Nigel Carrillo Work Phone: [facility] 06-14-2023 16:46-0400 Body mass index (BMI) [Ratio] 54.3 kg/m2 Dr. Nigel Carrillo Work Phone: [facility] 06-14-2023 16:46-0400 Body weight 157.[address] Nigel Carrillo Work Phone: [facility] 06-10-2023 08:51-0400 Body mass index (BMI) [Ratio] 52.7 kg/m2 Dr. Nigel Carrillo Work Phone: [facility] 06-10-2023 08:51-0400 Body weight 157.[address] Nigel Carrillo Work Phone: [facility] 06-03-2023 11:22-0400 Heart rate 69 /min Nba Caceres MD Work Phone: [facility] 06-03-2023 11:22-0400 Respiratory rate 16 /min Nba Caceres MD Work Phone: [facility] 06-03-2023 11:22-0400 SaO2% (BldA) [Mass fraction] 96 % Nba Caceres MD Work Phone: [facility] 06-02-2023 17:40-0400 Body mass index (BMI) [Ratio] 54.35 kg/m2 Angelika Older 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 Work Phone: [facility] 06-02-2023 17:40-0400 Body weight 157.4 kg Angelika Older 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 Work Phone: [facility] 06-02-2023 17:40-0400 Diastolic blood pressure 90 mm[Hg] Angelika Older 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 Work Phone: [facility] 06-02-2023 17:40-0400 Heart rate 74 /min Angelika Older 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 Work Phone: [facility] 06-02-2023 17:40-0400 Respiratory rate 16 /min Angelika Older 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 Work Phone: [facility] 06-02-2023 17:40-0400 SaO2% (BldA) [Mass fraction] 96 % Angelika Older 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 Work Phone: [facility] 06-02-2023 17:40-0400 Systolic blood pressure 136 mm[Hg] Angelika Older 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 Work Phone: [facility] 03-30-2023 13:02-0500 Body temperature 97.2 [degF] Brionna Katt 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 Work Phone: [facility] 03-30-2023 13:02-0500 Body weight 157.4 kg Brionna Katt 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 Work Phone: [facility] 03-30-2023 13:02-0500 Diastolic blood pressure 76 mm[Hg] Brionna Katt 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 Work Phone: [facility] 03-30-2023 13:02-0500 Heart rate 77 /min Brionna Katt 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 Work Phone: [facility] 03-30-2023 13:02-0500 Respiratory rate 20 /min Brionna Katt 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 Work Phone: [facility] 03-30-2023 13:02-0500 SaO2% (BldA) [Mass fraction] 97 % Brionna Katt 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 Work Phone: [facility] 03-30-2023 13:02-0500 Systolic blood pressure 110 mm[Hg] Brionna Katt 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 Work Phone: [facility] 02-19-2022 22:46-0500 Heart rate 73 /min [facility] Work Phone: 02-19-2022 22:46-0500 Respiratory rate 18 /min [facility] Work Phone: 02-19-2022 22:46-0500 SaO2% (BldA) [Mass fraction] 93 % [facility] Work Phone: 02-19-2022 18:09-0500 Body height 172.72 cm [facility] Work Phone: 02-19-2022 18:09-0500 Body mass index (BMI) [Ratio] 52.4 kg/m2 [facility] Work Phone: 02-19-2022 18:09-0500 Body temperature 98.3 [degF] [facility] Work Phone: 02-19-2022 18:09-0500 Body weight 156.5 kg [facility] Work Phone: 02-19-2022 18:09-0500 Diastolic blood pressure 77 mm[Hg] [facility] Work Phone: 02-19-2022 18:09-0500 Systolic blood pressure 165 mm[Hg] [facility] Work Phone: Encounters Encounter Date Encounter Type Care Provider Facility Start: 10-24-2024 End: 10-24-2024 Patient encounter procedure Doni Coronado PA-C Work Phone: Otolaryngology Comment on above: Dizziness; Tinnitus, bilateral; Sensorineural hearing loss, bilateral; Vertigo Start: 10-24-2024 End: 10-24-2024 Patient encounter procedure Rupali DESAI Work Phone: Audiology Comment on above: Sensorineural hearin g loss, bilateral (Primary Dx); Other specified hearing loss, unspecified ear; Tinnitus, bilateral; Vertigo Start: 10-24-2024 End: 10-24-2024 ambulatory NIGEL CARRILLO Facility:[facility] Start: 10-11-2024 ambulatory Gayathri Gilbert ty:[facility] Start: 09-13-2024 End: 09-13-2024 ambulatory ANGELIKA WILSON Facility:[facility] Start: 09-08-2024 End: 09-08-2024 Refill Nigel Carrillo MD Work Phone: [facility] [place] Comment on above: Refill Request Start: 08-17-2024 End: 08-17-2024 Telemedicine consultation with patient Angelika Older 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 Work Phone: [facility] [place] Start: 08-17-2024 End: 08-17-2024 ambulatory Angelika Older 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 Work Phone: [facility] [place] Comment on above: Anxiety and depressi on (Primary Dx); Dizziness Start: 08-07-2024 End: 08-17-2024 Telephone encounter Angelika Older 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 Work Phone: [facility] [place] Comment on above: Angel sosa Start: 07-21-2024 End: 09-20-2024 Follow-up encounter Angelika Older 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 Work Phone: [facility] [place] Start: 07-19-2024 End: 07-19-2024 Transcribe Orders Doni Coronado PA-C Work Phone: [facility] [place] Comment on above: Other specified hear ing loss, unspecified ear (Primary Dx) Start: 07-14-2024 End: 07-14-2024 Office outpatient visit 25 minutes Angelika Older 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 Work Phone: [facility] [place] Comment on above: Dizziness (Primary D x); Anxiety and depression; Tinnitus, bilateral Start: 07-14-2024 End: 07-18-2024 ambulatory Angelika Older 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 Work Phone: [facility] [place] Comment on above: Gabapentin Start: 07-05-2024 End: 07-05-2024 Follow-up encounter Angelika Older 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 Work Phone: Family [facility] [place] Start: 06-28-2024 End: 06-28-2024 ambulatory ANGELIKA OLDER Facility:[facility] Start: 06-28-2024 End: 06-28-2024 ambulatory ANGELIKA OLDER Facility:[facility] Start: 05-18-2024 End: 05-18-2024 Telephone encounter Nigel Carrillo MD Work Phone: [facility] [place] Comment on above: Orders (walker) Start: 05-09-2024 End: 06-09-2024 ambulatory Nigel Carrillo MD Work Phone: [facility] [place] Start: 05-04-2024 End: 05-04-2024 ambulatory Angelika Wilson 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 Work Phone: [facility] [place] Comment on above: Anxiety and depressi on (Primary Dx); Other fatigue; Vitamin B12 deficiency; Function kidney decreased; Ambulatory dysfunction Start: 05-04-2024 End: 05-04-2024 Telemedicine consultation with patient Angelika Older 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 Work Phone: [facility] [place] Start: 03-08-2024 End: 03-08-2024 Telephone encounter Angelika Older 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 Work Phone: [facility] [place] Comment on above: Erroneous encounter- disregard Start: 02-25-2024 End: 03-01-2024 Telephone encounter Angelika Older 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 Work Phone: Internal [facility] [place] Comment on above: Refill Request Start: 02-14-2024 End: 03-08-2024 Telephone encounter Angelika Older 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 Work Phone: [facility] [place] Comment on above: Results; fax form fo r lift chair Start: 02-03-2024 End: 02-03-2024 ambulatory ANGELIKA WILSON Facility:[facility] Start: 02-03-2024 End: 02-03-2024 Patient encounter procedure Angelika Older 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 Work Phone: Internal [facility] [place] Comment on above: Ambulatory dysfuncti on (Primary Dx); Lumbar and sacral arthritis; Lives alone; Other fatigue; Anxiety and depression; Hypothyroid; Encounter for immunization; Lipid screening; Insomnia, unspecified type Start: 12-27-2023 End: 12-30-2023 Telephone encounter Nigel Carrillo MD Work Phone: Family [facility] [place] Start: 12-01-2023 End: 12-01-2023 Telephone encounter Angelika Older 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 Work Phone: Internal [facility] [place] Comment on above: Orders; Appointment Start: 09-23-2023 Telephone encounter Angelika Wilson APRN.CNP Work Phone: [facility] [place] Comment on above: Patient Update Start: 07-06-2023 Telephone encounter Nba Caceres MD Work Phone: [facility] [place] Comment on above: Patient Question Start: 06-29-2023 Telephone encounter Angelika Wilson APRN.D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 Work Phone: Family [facility] [place] Comment on above: Medication Question Start: 06-28-2023 Telephone encounter Nigel el MD Work Phone: [facility] [place] Start: 06-23-2023 Telephone encounter Nigel el MD Work Phone: [facility] [place] Comment on above: [facility] Start: 06-17-2023 Telephone encounter Nigel el MD Work Phone: [facility] [place] Comment on above: Orders Start: 06-14-2023 End: 06-14-2023 Emergency department patient visit Dr. Nigel Carrillo Work Phone: [facility] Work Phone: Start: 06-14-2023 ambulatory Nigel Aldrich Work Phone: Internal [facility] [place] Comment on above: Chest pressure Start: 06-10-2023 End: 06-10-[address] Nigel Carrillo Work Phone: [facility] Work Phone: Start: 06-09-2023 ambulatory Nigel Aldrich Work Phone: [facility] [place] Start: 06-04-2023 Telephone encounter Angelika Wilson APRN.D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 Work Phone: [facility] [place] Comment on above: [employer] Start: 06-03-2023 Telephone encounter Nba Caceres MD Work Phone: [facility] Comment on above: Injection Questions Lumbar and sacral ar thritis (Primary Dx); Lumbar radiculopathy Start: 06-03-2023 End: 06-03-2023 Subsequent hospital visit by physician iA [facility] [place] Work Phone: Radiology Comment on above: Acute pain of right knee [M25.561] Start: 06-03-2023 End: 06-03-2023 Patient encounter procedure Nba Caceres MD Work Phone: [facility] Comment on above: Lumbar radiculopathy (Primary Dx); Lumbar and sacral arthritis; Ambulatory dysfunction; Chronic bilateral low back pain with sciatica, sciatica laterality unspecified Start: 06-03-2023 End: 06-03-2023 ambulatory NBA CACERES Facility:[facility] Start: 06-02-2023 End: 06-02-2023 Patient encounter procedure Angelika Wilson APRN.CNP Work Phone: Internal [facility] [place] Comment on above: Lumbar and sacral ar thritis (Primary Dx); Ambulatory dysfunction; Chronic bilateral low back pain with sciatica, sciatica laterality unspecified; Acute pain of right knee Start: 06-02-2023 Telephone encounter Angelika Wilson APRN.D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 Work Phone: Family [facility] [place] Comment on above: Orders Start: 05-31-2023 Refill Nigel Aldrich Work Phone: [facility] [place] Comment on above: Refill Request Start: 05-14-2023 Telephone encounter Brionna lamb 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 Work Phone: Family [facility] Comment on above: Toothache Start: 04-21-2023 Telephone encounter Nigel el MD Work Phone: [facility] [place] Comment on above: Incontinent supply o rder from [employer] Start: 03-30-2023 End: 03-30-2023 Patient encounter procedure Brionna Bolivar 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 Work Phone: [facility] [place] Comment on above: Pain, dental (Primar y Dx) Start: 03-29-2023 Telephone encounter Nigel el MD Work Phone: [facility] [place] Comment on above: Patient Question (An tibiotic for abscessed tooth) Start: 01-28-2023 End: 01-28-2023 ambulatory Angelika Older 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 Work Phone: Internal [facility] [place] Comment on above: Dyspnea on exertion (Primary Dx); Palpitations; Lumbar and sacral arthritis; Function kidney decreased; Hypothyroid; Elevated glucose Start: 01-28-2023 End: 01-28-2023 Telemedicine consultation with patient Angelika Older 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 Work Phone: [facility] [place] Start: 12-24-2022 End: 12-24-2022 Subsequent hospital visit by physician Ai [facility] [place] Work Phone: Radiology Comment on above: Dyspnea on exertion [R06.09] Start: 11-10-2022 ambulatory Nigel Aldrich Work Phone: [facility] [place] Start: 11-10-2022 Refill Angelika Older UPHOLSTERY CUTTER .MYA Work Phone: Internal [facility] [place] Comment on above: Refill Request Start: 11-09-2022 Refill Angelika Older UPHOLSTERY CUTTER .MYA Work Phone: Internal [facility] [place] Comment on above: Refill Request Start: 07-01-2022 ambulatory Nigel Aldrich Work Phone: Internal Medicine [facility] Start: 06-03-2022 End: 06-03-2022 ambulatory Angelika Older 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 Work Phone: Internal [facility] [place] Comment on above: Insomnia, unspecifie d type (Primary Dx); Obstructive sleep apnea syndrome; Ambulatory dysfunction; Lumbar and sacral arthritis Start: 06-03-2022 End: 06-03-2022 Telemedicine consultation with patient Angelika Older UPHOLSTERY CUTTER.MYA Work Phone: [facility] [place] Start: 04-20-2022 Telephone encounter Nigel el MD Work Phone: [facility] [place] Comment on above: Patient Update Start: 04-09-2022 Telephone encounter Nigel el MD Work Phone: [facility] [place] Comment on above: Medical Supplies Start: 04-06-2022 Telephone encounter Nigel el MD Work Phone: Internal [facility] [place] Comment on above: Orders (Compression gloves) Refill Request Start: 03-31-2022 Refill Nigel Aldrich Work Phone: Family [facility] Comment on above: Refill Request Start: 03-30-2022 Refill Angelika Older UPHOLSTERY CUTTER .D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 Work Phone: Internal [facility] [place] Comment on above: Refill Request Start: 02-19-2022 End: 02-19-2022 Emergency department patient visit [facility] Start: 02-03-2022 Refill Angelika Older UPHOLSTERY CUTTER .D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 Work Phone: Internal [facility] [place] Comment on above: Refill Request Start: 01-26-2022 End: 01-26-2022 ambulatory Angelika Older 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 Work Phone: [facility] [place] Comment on above: Insomnia, unspecifie d type (Primary Dx) Start: 01-26-2022 End: 01-26-2022 Telemedicine consultation with patient Angelika Older 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 Work Phone: [facility] [place] Start: 01-16-2022 Refill Nigel Aldrich Work Phone: Internal [facility] [place] Comment on above: Refill Request Orders (Prescription for Scooter) Start: 12-29-2021 End: 12-29-2021 ambulatory Angelika Older 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 Work Phone: Internal [facility] [place] Comment on above: Insomnia, unspecifie d type (Primary Dx); Reactive depression; Obstructive sleep apnea syndrome Start: 12-29-2021 End: 12-29-2021 Telemedicine consultation with patient Angelika Older 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 Work Phone: [facility] [place] Start: 11-24-2021 Refill Angelika Older UPHOLSTERY CUTTER .D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 Work Phone: [facility] [place] Comment on above: Refill Request Start: 10-20-2021 Refill Nigel Aldrich Work Phone: Internal [facility] [place] Comment on above: Refill Request Start: 10-01-2021 Telephone encounter Nigel el MD Work Phone: Internal [facility] [place] Comment on above: Order for scooter Start: 09-09-2021 Telephone encounter Nigel el MD Work Phone: [facility] [place] Comment on above: DME company Start: 09-08-2021 Telephone encounter Nigel el MD Work Phone: [facility] [place] Comment on above: Orders (pt here now for thyroid labs) Start: 09-02-2021 Telephone encounter Nigel el MD Work Phone: Internal [facility] [place] Comment on above: Patient Question Start: 07-30-2021 ambulatory Nigel Aldrich Work Phone: [facility] [place] Start: 07-21-2021 Telephone encounter Nigel el MD Work Phone: Internal [facility] [place] Comment on above: Patient Update Start: 07-08-2021 ambulatory Nigel Aldrich Work Phone: [facility] [place] Start: 07-03-2021 Refill Nigel Carrillo M Elinor Work Phone: Internal [facility] [place] Comment on above: Refill Request Medication Request Start: 06-10-2021 Telephone encounter Nigel el MD Work Phone: [facility] [place] Comment on above: Meloxicam issue Start: 06-09-2021 Refill Nigel Aldrich Work Phone: [facility] [place] Comment on above: Refill Request Start: 06-06-2021 Telephone encounter Genna kuhn OD Work Phone: Ophthalmology Comment on above: Patient Question Start: 06-02-2021 End: 06-02-2021 Patient encounter procedure Genna Lancaster OD Work Phone: Ophthalmology Comment on above: Combined forms of ag e-related cataract of both eyes (Primary Dx); Dry eye syndrome of bilateral lacrimal glands; Hypermetropia, bilateral; Regular astigmatism of both eyes; Presbyopia; Vitreous floaters of both eyes Start: 05-07-2021 End: 05-07-2021 ambulatory Angelika Wilson 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 Work Phone: Internal [facility] [place] Comment on above: History of recent ho spitalization (Primary Dx); Kidney stones; Pyelonephritis; Anemia, unspecified type; Hypothyroidism, unspecified type; Mixed hyperlipidemia; Vitamin D deficiency Start: 05-07-2021 End: 05-07-2021 Telemedicine consultation with patient Angelika Wilson APRN.D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 Work Phone: [facility] [place] Start: 05-06-2021 Telephone encounter Angelika Wilson 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 Work Phone: Internal [facility] [place] Comment on above: Patient Update Start: 09-06-2020 Telephone encounter Zheng Guardado Raman franks UPHOLSTERY CUTTER.MYA Pain Management Comment on above: New Patient Start: 03-14-2020 End: 03-14-2020 Subsequent hospital visit by physician Ai [facility] [place] Work Phone: Radiology Comment on above: Lumbar and sacral ar thritis [M47.817] Procedures Date Procedure Procedure Detail Performing Clinician Start: 10-24-2024 HEARING TEST/AUDIOGRAM Doni Coronado PA-C Work Phone: Start: 02-03-2024 Lipid 1996 panel - S callum or Plasma Angelika Older 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 Work Phone: Start: 06-14-2023 Plain chest X-ray Dr. Dianne Carrillo Work Phone: Start: 11-12-2022 Lipid 1996 panel - S callum or Plasma Angelika Older 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 Work Phone: Start: 02-19-2022 Plain chest X-ray Start: 09-08-2021 Lipid 1996 panel - S callum or Plasma Angelika Older 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 Work Phone: Start: 03-14-2020 Radex hips bilateral with pelvis minimum 5 views Nigel Carrillo MD Work Phone: Plan of Treatment Date Care Activity Detail Author Start: 02-02-2029 Lipid panel Lipid Screening [facility] Start: 11-13-2027 Lipid 1996 panel - Serum or Plasma Lipid Screening [facility] Start: 11-13-2027 Lipid panel Lipid Screening [facility] Start: 07-15-2027 Diabetes Screening Diabetes Screening [facility] Start: 06-29-2027 Diabetes Screening Diabetes Screening [facility] Start: 02-02-2027 Diabetes Screening Diabetes Screening [facility] Start: 09-08-2026 Lipid 1996 panel - Serum or Plasma Lipid Screening [facility] Start: 09-08-2026 LIPID SCREEN LIPID SCREEN [facility] Start: 06-02-2026 Diabetes Screening Diabetes Screening [facility] Start: 12-21-2025 Diabetes Screening Diabetes Screening [facility] Start: 11-12-2025 Diabetes Screening Diabetes Screening [facility] Start: 09-13-2025 Annual PCP Team Chronic Disease Visit Annual PCP Team Chronic Disease Visit [facility] Start: 08-17-2025 Annual PCP Team Chronic Disease Visit Annual PCP Team Chronic Disease Visit [facility] Start: 07-14-2025 Annual PCP Team Chronic Disease Visit Annual PCP Team Chronic Disease Visit [facility] Start: 06-28-2025 Annual PCP Team Chronic Disease Visit Annual PCP Team Chronic Disease Visit [facility] Start: 05-14-2025 LIPID SCREEN LIPID SCREEN [facility] Start: 05-04-2025 Annual PCP Team Chronic Disease Visit Annual PCP Team Chronic Disease Visit [facility] Start: 02-02-2025 Annual PCP Team Chronic Disease Visit Annual PCP Team Chronic Disease Visit [facility] Start: 02-02-2025 Covid-19 Vaccine ( season) Covid-19 Vaccine ( season) [facility] Comment on above: Postponed from 10/10/2023 (Declined at t his time) Start: 02-02-2025 Hepatitis C screening Hepatitis C Screening [facility] Comment on above: Postponed from 02/10/1978 (Declined at t his time) Start: 02-02-2025 HIV screening HIV Screening [facility] Comment on above: Postponed from 02/10/1978 (Declined at t his time) Start: 02-02-2025 Pneumococcal Vaccine: 50+ (1 of 1 - PCV) Pneumococcal Vaccine: 50+ (1 of 1 - PCV) [facility] Comment on above: Postponed from 02/10/2010 (Declined at t his time) Start: 02-02-2025 RSV Vaccine (1 - Risk 60-74 years 1-dose series) RSV Vaccine (1 - Risk 60-74 years 1-dose series) [facility] Comment on above: Postponed from 2020 (Declined at t his time) Start: 02-02-2025 Shingrix Vaccine (1 of 2) Shingrix Vaccine (1 of 2) [facility] Comment on above: Postponed from 02/10/2010 (Declined at t his time) Start: 02-02-2025 Urine microalbumin profile DTaP,Tdap,Td Vaccine (1 - Tdap) [facility] Comment on above: Postponed from 02/10/1979 (Declined at t his time) Start: 10-24-2024 End: 10-24-2024 Patient encounter procedure 10/24/2024 2:40 PM EDT Office Visit Otolaryngology [address] [place] [address] Doni Coronado PA-C [address] [place] [address] Dizziness [R42] Otolaryngology Comment on above: Dizziness [R42] Start: 10-24-2024 End: 10-24-2024 Patient encounter procedure 10/24/2024 1:30 PM EDT Office Visit Audiology [address] [place] [address] Rupali Merritt [address]UD [address] [place] [address] Dizziness [R42] Audiology Comment on above: Dizziness [R42] Start: 10-09-2024 Influenza vaccination Influenza Vaccine (#1) [facility] Start: 09-29-2024 End: 09-29-2024 Patient encounter procedure 09/29/2024 1:40 PM EDT Office Visit [facility] [place] [address] [place] [id number] Nigel Carrillo MD [address] [place] [id number] 3 month follow up [facility] [place] Comment on above: 3 month follow up Start: 09-25-2024 End: 09-25-2024 Patient encounter procedure 09/25/2024 12:50 PM EDT Appointment Mammogram [address] [place] [address] Mammogram Start: 09-13-2024 End: 09-13-2024 Patient encounter procedure 09/13/2024 6:00 PM EDT Office Visit [facility] [place] [address] [place] [address] Angelika Wilson APRN.D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 [address] [place] [address] Assisted living form [facility] [place] Comment on above: Assisted living form Start: 09-08-2024 DIABETES SCREEN DIABETES SCREEN [facility] Start: 09-08-2024 Diabetes Screening Diabetes Screening [facility] Start: 09-07-2024 End: 09-07-2024 Patient encounter procedure 09/07/2024 2:40 PM EDT Office Visit Otolaryngology [address] [place] [id number] Doni Coronado PA-C [address] [place] [address] Dizziness [R42] Otolaryngology Comment on above: Dizziness [R42] Start: 09-07-2024 End: 09-07-2024 Patient encounter procedure 09/07/2024 1:30 PM EDT Office Visit Audiology [address] [place] [address] Trudy Smith, AUD [address] [place] [address] Dizziness [R42] Audiology Comment on above: Dizziness [R42] Start: 08-17-2024 End: 08-17-2024 Patient encounter procedure 08/17/2024 1:40 PM EDT Office Visit [facility] [place] [address] [place], [place] [id number] Angelika Wilson APRN.D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 [address] [place], [place] [address] 4 week [facility] [place] Comment on above: 4 week Start: 08-01-2024 End: 08-01-2024 Patient encounter procedure 08/01/2024 9:45 AM EDT Office Visit [facility] Ophthalmology [address] [place] [address] Genna Lancaster, OD [address] [place] [address] [facility] [address] [address] routine eye exam Ophthalmology Comment on above: routine eye exam Start: 07-19-2024 End: 10-18-2024 Basic metabolic 2000 panel - Serum or Plasma BASIC METABOLIC PANEL Lab Routine Hyponatremia Expected: 07/19/2024 (Approximate), Expires: 10/18/2024 [facility] Work Phone: Comment on above: Expected: 07/19/2024 (Approximate), Expi res: 10/18/2024 Start: 07-10-2024 End: 07-10-2024 Follow-up encounter 07/10/2024 10:20 AM EDT [facility] [place] [address] [facility] [place] [address] Angelika Wilson APRN.D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 [address] [place] [address] This is a follow up about kidney function. [facility] [place] Comment on above: This is a follow up about kidney functio n. Start: 06-01-2024 Annual PCP Team Chronic Disease Visit Annual PCP Team Chronic Disease Visit [facility] Start: 05-04-2024 End: 05-04-2024 ambulatory 05/04/2024 10:00 AM EDT [facility] [place] [address] [facility] [place] [address] Angelika Wilson APRN.D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 [address] [facility] [place], [place] [id number] 3 month follow ujp-labs--virtual [facility] [place] Comment on above: 3 month follow ujp-labs--virtual Start: 03-30-2024 Annual PCP Team Chronic Disease Visit Annual PCP Team Chronic Disease Visit [facility] Start: 03-14-2024 End: 03-14-2024 ambulatory 03/14/2024 1:00 PM EST Results Only [place] [facility] [address] [facility] [place] [address] [place] [facility] Start: 02-28-2024 End: 05-29-2024 Basic metabolic 2000 panel - Serum or Plasma BASIC METABOLIC PANEL Lab Routine Function kidney decreased Expected: 02/28/2024 (Approximate), Expires: 05/29/2024 [facility] Work Phone: Comment on above: Expected: 02/28/2024 (Approximate), Expi res: 05/29/2024 Start: 02-09-2024 Medicare [facility] Annual Wellness Visit Medicare [facility] Annual Wellness Visit [facility] Start: 02-03-2024 End: 05-04-2024 Cobalamin (Vitamin B12) [Mass/volume] in Serum or Plasma [facility] Comment on above: Expected: 02/03/2024, Expires: Start: 02-03-2024 End: 05-04-2024 Comprehensive metabolic 2000 panel - Serum or Plasma [facility] Comment on above: Expected: 02/03/2024, Expires: Start: 02-03-2024 End: 05-04-2024 Lipid 1996 panel - Serum or Plasma [facility] Work Phone: Comment on above: Expected: 02/03/2024, Expires: Start: 02-03-2024 End: 05-04-2024 Thyrotropin [Units/volume] in Serum or Plasma [facility] Comment on above: Expected: 02/03/2024, Expires: Start: 02-03-2024 End: 05-04-2024 Thyroxine (T4) free [Mass/volume] in Serum or Plasma [facility] Comment on above: Expected: 02/03/2024, Expires: Start: 02-03-2024 End: 05-04-2024 Triiodothyronine (T3) Free [Mass/volume] in Serum or Plasma [facility] Comment on above: Expected: 02/03/2024, Expires: Start: 01-29-2024 Annual PCP Team Chronic Disease Visit Annual PCP Team Chronic Disease Visit [facility] Start: 12-22-2023 Annual PCP Team Chronic Disease Visit Annual PCP Team Chronic Disease Visit [facility] Start: 12-22-2023 Colorectal Cancer Screening Colorectal Cancer Screening [facility] Comment on above: Postponed from 02/10/2005 (Declined at t his time) Start: 12-22-2023 Covid-19 Vaccine () Covid-19 Vaccine () [facility] Comment on above: Postponed from 10/09/2022 (Declined at t his time) Start: 12-22-2023 Hepatitis C Screening Hepatitis C Screening [facility] Comment on above: Postponed from 02/10/1978 (Declined at t his time) Start: 12-22-2023 Hepatitis C screening Hepatitis C Screening [facility] Comment on above: Postponed from 02/10/1978 (Declined at t his time) Start: 12-22-2023 HIV Screening HIV Screening [facility] Comment on above: Postponed from 02/10/1978 (Declined at t his time) Start: 12-22-2023 HIV screening HIV Screening [facility] Comment on above: Postponed from 02/10/1978 (Declined at t his time) Start: 12-22-2023 HPV Testing HPV Testing [facility] Comment on above: Postponed from 02/10/1990 (Declined at t his time) Start: 12-22-2023 Pap Testing Pap Testing [facility] Comment on above: Postponed from 02/10/1981 (Declined at t his time) Start: 12-22-2023 RSV Vaccine (1 - 1-dose 60+ series) RSV Vaccine (1 - 1-dose 60+ series) [facility] Comment on above: Postponed from 2020 (Declined at t his time) Start: 12-22-2023 RSV Vaccine (1 - Risk 60-74 years 1-dose series) RSV Vaccine (1 - Risk 60-74 years 1-dose series) [facility] Comment on above: Postponed from 2020 (Declined at t his time) Start: 12-22-2023 Screening for malignant neoplasm of cervix [facility] Comment on above: Postponed from 02/10/1990 (Declined at t his time) Postponed from 02/10 (Declined at this time) Start: 12-22-2023 Screening for malignant neoplasm of colon Colorectal Cancer Screening [facility] Comment on above: Postponed from 02/10/2005 (Declined at t his time) Start: 12-22-2023 Shingrix Vaccine (1 of 2) Shingrix Vaccine (1 of 2) [facility] Comment on above: Postponed from 02/10/2010 (Declined at t his time) Start: 12-22-2023 Urine microalbumin profile DTaP,Tdap,Td Vaccine (1 - Tdap) [facility] Comment on above: Postponed from 02/10/1979 (Declined at t his time) Start: 12-02-2023 End: 12-02-2023 Patient encounter procedure [facility] [place] Comment on above: 6 mo f/u Follow up Start: 10-10-2023 Covid-19 Vaccine ( season) Covid-19 Vaccine ( season) [facility] Start: 10-10-2023 Influenza vaccination [facility] Start: 08-26-2023 End: 08-26-2023 Follow-up encounter 08/26/2023 3:45 PM EDT [facility] [address] [place] [address] Josefina Abraham APRN.D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 [address] [place] [address] Follow up from injection/2 month follow up [facility] Comment on above: Follow up from injection/2 month follow up Start: 08-23-2023 DIABETES SCREEN DIABETES SCREEN [facility] Start: 07-27-2023 End: 07-27-2023 Follow-up encounter [facility] [place] Comment on above: Follow up from injection/2 month follow up Start: 07-09-2023 End: 07-09-2023 Admission to same day surgery center 07/09/2023 2:30 PM EDT - 07/09/2023 3:00 PM EDT Surgery LD SURGERY [address] [place] [id number] Nba Caceres MD [address] [place] [address] LUMBAR EPIDURAL BLOCK W/INJECTION NON NEUROLYTIC W/IMAGE GUIDANCE LD SURGERY Comment on above: LUMBAR EPIDURAL BLOCK W/INJECTION NON NE UROLYTIC W/IMAGE GUIDANCE Start: 07-09-2023 End: 07-09-2023 Njx dx/ther sbst intrlmnr lmbr/sac w/img gdn LUMBAR EPIDURAL BLOCK W/INJECTION NON NEUROLYTIC W/IMAGE GUIDANCE Lumbar and sacral arthritis Lumbar radiculopathy 07/09/2023 2:30 PM EDT LD OR Start: 07-09-2023 End: 07-09-2023 Admission to same day surgery center 07/09/2023 11:40 AM EDT - 07/09/2023 12:10 PM EDT Surgery LD SURGERY [address] [place] [address] bNa Caceres MD [address] [address] LUMBAR EPIDURAL BLOCK W/INJECTION NON NEUROLYTIC W/IMAGE GUIDANCE LD SURGERY Comment on above: LUMBAR EPIDURAL BLOCK W/INJECTION NON NE UROLYTIC W/IMAGE GUIDANCE Start: 07-09-2023 End: 07-09-2023 Njx dx/ther sbst intrlmnr lmbr/sac w/img gdn LUMBAR EPIDURAL BLOCK W/INJECTION NON NEUROLYTIC W/IMAGE GUIDANCE Lumbar and sacral arthritis Lumbar radiculopathy 07/09/2023 11:40 AM EDT LD OR Start: 07-09-2023 Subsequent hospital visit by physician LD SURGERY Comment on above: Lumbar and sacral arthritis [M47.817] Start: 06-14-2023 [facility] Start: 06-04-2023 ANNUAL PCP TEAM CHRONIC DISEASE VISIT ANNUAL PCP TEAM CHRONIC DISEASE VISIT [facility] Start: 06-02-2023 End: 06-02-2023 Patient encounter procedure 06/02/2023 5:40 PM EDT Office Visit Internal [facility] [place] [address] [place] [address] Older, LOULOU Carney.D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 [address] [place] [address] discuss getting new lift chair [facility] [place] Comment on above: discuss getting new lift chair Start: 04-09-2023 End: 07-09-2023 Basic metabolic 2000 panel - Serum or Plasma BASIC METABOLIC PNL Lab Routine Elevated glucose Expected: 04/09/2023 (Approximate), Expires: 07/09/2023 [facility] Work Phone: Comment on above: Expected: 04/09/2023 (Approximate), Expi res: 07/09/2023 Start: 04-09-2023 End: 07-09-2023 Hemoglobin A1c in Blood HGB A1C Lab Routine Elevated glucose Expected: 04/09/2023 (Approximate), Expires: 07/09/2023 [facility] Work Phone: Comment on above: Expected: 04/09/2023 (Approximate), Expi res: 07/09/2023 Start: 04-09-2023 End: 07-09-2023 Thyrotropin [Units/volume] in Serum or Plasma TSH BLD Lab Routine Hypothyroid Expected: 04/09/2023, Expires: 07/09/2023 [facility] Work Phone: Comment on above: Expected: 04/09/2023, Expires: Start: 01-26-2023 ANNUAL PCP TEAM CHRONIC DISEASE VISIT ANNUAL PCP TEAM CHRONIC DISEASE VISIT [facility] Start: 12-29-2022 ANNUAL PCP TEAM CHRONIC DISEASE VISIT ANNUAL PCP TEAM CHRONIC DISEASE VISIT [facility] Start: 11-11-2022 End: 01-11-2023 25-hydroxyvitamin D3 [Mass/volume] in Serum or Plasma VITAMIN D 25 HYDROXY Lab Routine Vitamin D deficiency Expected: 11/11/2022, Expires: 01/11/2023 [facility] Work Phone: Comment on above: Expected: 11/11/2022, Expires: Start: 10-09-2022 Influenza vaccination [facility] Start: 09-08-2022 ANNUAL PCP TEAM CHRONIC DISEASE VISIT ANNUAL PCP TEAM CHRONIC DISEASE VISIT [facility] Start: 05-07-2022 ANNUAL PCP TEAM CHRONIC DISEASE VISIT ANNUAL PCP TEAM CHRONIC DISEASE VISIT [facility] Start: 10-09-2021 Influenza vaccination INFLUENZA (#1) [facility] Start: 09-08-2021 End: 11-08-2021 25-hydroxyvitamin D3 [Mass/volume] in Serum or Plasma [facility] Work Phone: Comment on above: Expected: 09/08/2021, Expires: 2 Start: 09-08-2021 End: 11-08-2021 CBC W Auto Differential panel - Blood [facility] Work Phone: Comment on above: Expected: 09/08/2021, Expires: 2 Start: 09-08-2021 End: 11-08-2021 Comprehensive metabolic 2000 panel - Serum or Plasma [facility] Work Phone: Comment on above: Expected: 09/08/2021, Expires: 2 Start: 09-08-2021 End: 11-08-2021 Hemoglobin A1c in Blood [facility] Work Phone: Comment on above: Expected: 09/08/2021, Expires: 2 Start: 09-08-2021 End: 11-08-2021 Lipid 1996 panel - Serum or Plasma [facility] Work Phone: Comment on above: Expected: 09/08/2021, Expires: 2 Start: 09-08-2021 End: 11-08-2021 Thyrotropin [Units/volume] in Serum or Plasma [facility] Work Phone: Comment on above: Expected: 09/08/2021, Expires: 2 Start: 07-08-2021 End: 09-07-2021 Renal function 2000 panel - Serum or Plasma RENAL FUNCTION PANEL Lab Routine Medication management Expected: 07/08/2021, Expires: 09/07/2021 [facility] Work Phone: Comment on above: Expected: 07/08/2021, Expires: 2 Start: 07-08-2021 End: 09-07-2021 SCHEDULE LAB TESTING SCHEDULE LAB TESTING Lab Routine Expected: 07/08/2021, Expires: 09/07/2021 [facility] Work Phone: Comment on above: Expected: 07/08/2021, Expires: 2 Start: 07-08-2021 End: 09-07-2021 Thyrotropin [Units/volume] in Serum or Plasma TSH BLD Lab Routine Hypothyroidism, unspecified type Expected: 07/08/2021, Expires: 09/07/2021 [facility] Work Phone: Comment on above: Expected: 07/08/2021, Expires: 2 Start: 05-07-2021 End: 07-07-2021 CBC W Auto Differential panel - Blood CBC + DIFF Lab Routine Anemia, unspecified type Expected: 05/07/2021, Expires: 07/07/2021 [facility] Work Phone: Comment on above: Expected: 05/07/2021, Expires: 2 Start: 05-07-2021 End: 07-07-2021 Comprehensive metabolic 2000 panel - Serum or Plasma COMP METABOLIC PANEL Lab Routine Mixed hyperlipidemia Expected: 05/07/2021, Expires: 07/07/2021 [facility] Work Phone: Comment on above: Expected: 05/07/2021, Expires: 2 Start: 05-07-2021 End: 07-07-2021 LIPID PANEL BASIC LIPID PANEL BASIC Lab Routine Mixed hyperlipidemia Expected: 05/07/2021, Expires: 07/07/2021 [facility] Work Phone: Comment on above: Expected: 05/07/2021, Expires: 2 Start: 05-07-2021 End: 07-07-2021 Thyrotropin [Units/volume] in Serum or Plasma TSH BLD Lab Routine Hypothyroidism, unspecified type Expected: 05/07/2021, Expires: 07/07/2021 [facility] Work Phone: Comment on above: Expected: 05/07/2021, Expires: 2 Start: 05-07-2021 End: 07-07-2021 VITAMIN D 25 HYDROXY VITAMIN D 25 HYDROXY Lab Routine Vitamin D deficiency Expected: 05/07/2021, Expires: 07/07/2021 [facility] Work Phone: Comment on above: Expected: 05/07/2021, Expires: 2 Start: 01-06-2021 COVID-19 VACCINE (4 - Booster for Pfizer series) COVID-19 VACCINE (4 - Booster for Pfizer series) [facility] Start: 10-31-2020 COVID-19 VACCINE (4 - Booster for Pfizer series) COVID-19 VACCINE (4 - Booster for Pfizer series) [facility] Start: 10-31-2020 Covid-19 Vaccine (4 - Pfizer series) Covid-19 Vaccine (4 - Pfizer series) [facility] Start: 2020 RSV Vaccine (1 - Risk 60-74 years 1-dose series) RSV Vaccine (1 - Risk 60-74 years 1-dose series) [facility] Start: 02-10-2010 SHINGRIX VACCINE (1 of 2) SHINGRIX VACCINE (1 of 2) [facility] Start: 02-10-2005 COLOGUARD (FIT-DNA) COLOGUARD (FIT-DNA) [facility] Start: 02-10-2005 Colonoscopy COLONOSCOPY [facility] Start: 02-10-2005 COLORECTAL CANCER SCREENING COLORECTAL CANCER SCREENING [facility] Start: 02-10-[address] COLONOGRAPHY [facility] Start: 02-10-2005 FECAL OCCULT BLOOD FECAL OCCULT BLOOD [facility] Start: 02-10-2005 Screening for malignant neoplasm of colon [facility] Start: 02-10-2005 SIGMOIDOSCOPY SIGMOIDOSCOPY [facility] Start: 2000 Mammography [facility] Start: 2000 Screening for malignant neoplasm of breast Mammogram Screening [facility] Start: 02-10-1990 HPV TESTING HPV TESTING [facility] Start: 02-10-1981 PAP TESTING PAP TESTING [facility] Start: 02-10-1981 Screening for malignant neoplasm of cervix Cervical Cancer Screening [facility] Start: 02-10-1979 Urine microalbumin profile [facility] Start: 02-10-1978 Anxiety Screening Anxiety Screening [facility] Start: 02-10-1978 HEPATITIS C SCREENING HEPATITIS C SCREENING [facility] Start: 02-10-1978 Hepatitis C screening Hepatitis C Screening [facility] Start: 02-10-1978 HIV SCREENING HIV SCREENING [facility] Start: 02-10-1978 HIV screening HIV Screening [facility] 25-hydroxyvitamin D3 [Mass/volume] in Serum or Plasma VITAMIN D 25 HYDROXY Lab Routine Vitamin D deficiency 11/12/2022 10:43 AM EDT [facility] Work Phone: CT Chest W contrast IV [facility] End: 06-08-2025 DBT Breast - bilateral screening LEI SCREENING W HARRY Radiology Routine Encounter for screening mammogram for breast cancer 1 Occurrences starting 05/09/2024 until 06/08/2025 [facility] Work Phone: Comment on above: 1 Occurrences starting 05/09/2024 until 06/08/2025 End: 07-20-2025 HEARING TEST/AUDIOGRAM HEARING TEST/AUDIOGRAM Audiology Routine Other specified hearing loss, unspecified ear 1 Occurrences starting 07/19/2024 until 07/20/2025 [facility] Work Phone: Comment on above: 1 Occurrences starting 07/19/2024 until 07/20/2025 End: 07-31-2023 LEI SCREENING LEI SCREENING Radiology Routine Encounter for screening mammogram for breast cancer 1 Occurrences starting 07/01/2022 until 07/31/2023 [facility] Work Phone: Comment on above: 1 Occurrences starting 07/01/2022 until 07/31/2023 End: 07-08-2024 MG Breast Screening LEI SCREENING Radiology Routine Encounter for screening mammogram for breast cancer 1 Occurrences starting 06/09/2023 until 07/08/2024 [facility] Work Phone: Comment on above: 1 Occurrences starting 06/09/2023 until 07/08/2024 Njx dx/ther sbst int rlmnr lmbr/sac w/img gdn LUMBAR EPIDURAL BLOCK W/INJECTION NON NEUROLYTIC W/IMAGE GUIDANCE Lumbar and sacral arthritis Lumbar radiculopathy [facility] Heart Views W str ess and W radionuclide IV [facility] Patient Education [facility] Work Phone: Patient referral [facility] Work Phone: Radiologic exam ches t 2 views XR CHEST 2V FRONTAL/LAT Radiology Routine Dyspnea on exertion Lightheaded 12/24/2022 1:41 PM EST [facility] Work Phone: End: 08-29-2022 Screening mammography bi 2-view breast inc cad LEI SCREENING Radiology Routine Encounter for screening mammogram for breast cancer 1 Occurrences starting 07/30/2021 until 08/29/2022 [facility] Work Phone: Comment on above: 1 Occurrences starting 07/30/2021 until 08/29/2022 End: 07-01-2024 XR Knee - right 4 Views XR KNEE GENERAL 4V AP BOTH/PA BOTH/LAT/MERC RIGHT Radiology Routine Acute pain of right knee 1 Occurrences starting 06/02/2023 until 07/01/2024 [facility] Work Phone: Comment on above: 1 Occurrences starting 06/02/2023 until 07/01/2024 XR Knee - right 4 Views XR KNEE GENERAL 4V AP BOTH/PA BOTH/LAT/MERC RIGHT Radiology Routine Acute pain of right knee 06/03/2023 1:05 PM EDT [facility] Immunizations Immunization Date Immunization Notes Care Provider Shane rico 02-03-2024 influenza, seasonal, injectable Angelika Older 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 Work Phone: [facility] 02-03-2024 influenza virus vaccine, unspecified formulation Angelika Older 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 Work Phone: [facility] 12-24-2022 influenza, injectabl e, quadrivalent, contains preservative Xr Mob Work Phone: [facility] 12-24-2022 influenza virus vaccine, unspecified formulation Angelika Older 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 Work Phone: [facility] 04-12-2021 influenza, injectabl e, quadrivalent, preservative free Dr. Nigel Carrillo Work Phone: [facility] 04-12-2021 influenza, seasonal, injectable [facility] Work Phone: 04-12-2021 influenza virus vaccine, unspecified formulation Angelika Wilson APRN.CNP Work Phone: [facility] 04-09-2020 Covid (Pfizer) [facility] 11-09-2016 Influenza virus vaccine W [facility] Payers Date Payer Category Payer Self-pay [id number] 2024 Unknown [id number] 2020 Medicare [id number] 2020 Medicare [facility] MY[employer]ARE [employer] MEDICARE [id number] 2020-Present [phone] [place] [id number] Medicare [id number] 2020 Medicare (Managed Care) [facility] MEDICARE [id number] 2020 Unknown [id number] 2020 Medicaid MEDICAID [facility] MEDICAID [id number] 2020-2020 [address] [place] [address] Medicaid [id number] 2020 Medicare MEDICARE MEDICAR E A AND B [id number] 2020-[address] [address] [place] [address] Medicare [id number] 2019 Medicaid [id number] Medicare MEDICARE PART A B [id number] 2 [id number] Unknown [id number] Social History Date Type Detail Facility Start: 06-06-2020 End: 12-21-2022 Tobacco smoking status NHIS Never smoked tobacco [facility] Start: 06-06-2020 End: 12-21-2022 Tobacco use and exposure Smokeless tobacco non-user [facility] Start: 05-07-2021 End: 09-13-2024 Alcohol intake Ex-drinker (finding) [facility] Start: 05-08-2020 End: 01-25-2022 History SDOH Alcohol Frequency 1 [facility] Start: 05-06-2020 History SDOH Alcohol Std Drinks 98 [facility] Start: 05-06-2020 End: 01-25-2022 History SDOH Social Connections Phone 5 [facility] Start: 05-06-2020 End: 01-25-2022 History SDOH Social Connections Membership 2 [facility] Start: 05-06-2020 End: 01-25-2022 History SDOH Social Connections Living 7 [facility] Start: 05-06-2020 End: 01-25-2022 History SDOH Physical Activity DPW 0 [facility] Start: 05-06-2020 End: 12-26-2021 History SDOH Stress 3 [facility] Start: 05-06-2020 Education 21 [facility] Start: 1960 Sex Assigned At Female [facility] Start: 02-13-2020 End: 09-08-2021 Exposure to SARS-CoV-2 (event) Not sure [facility] Start: 01-25-2022 History SDOH Financial 4 [facility] Start: 02-19-2022 End: 06-14-2023 Tobacco smoking status NHIS Unknown if ever smoked [facility] Start: 03-17-2017 Rare [facility] Start: 06-09-2020 Non-smoker [facility] Start: 01-25-2022 End: 12-21-2022 History of Social function [facility] Start: 01-25-2022 End: 12-21-2022 Social connection and isolation panel [facility] Do you belong to any clubs or organizations such as adventist groups, unions, [employer] or athletic groups, or school groups? No [facility] Are you now , , , , never or living with a partner? Never [facility] How often to you hav e a drink containing alcohol? Never [facility] Start: 01-10-2012 How many standard drinks containing alcohol do you have on a typical day? Patient does not drink [facility] How hard is it for y ou to pay for the very basics like food, housing, medical care, and heating Not very hard [facility] Do you feel stress - tense, restless, nervous, or anxious, or unable to sleep at night because your mind is troubled all the time - these days [OSQ] Only a little [facility] (I/We) worried whegladis er (my/our) food would run out before (I/we) got money to buy more. Never true [facility] Start: 03-31-2020 Gender identity Identifies as female gender (finding) [facility] Start: 03-31-2020 Sexual orientation Heterosexual (finding) [facility] Do you feel stress - tense, restless, nervous, or anxious, or unable to sleep at night because your mind is troubled all the time - these days [OSQ] Rather much [facility] How hard is it for y ou to pay for the very basics like food, housing, medical care, and heating Somewhat hard [facility] Do you feel stress - tense, restless, nervous, or anxious, or unable to sleep at night because your mind is troubled all the time - these days [OSQ] Not at all [facility] (I/We) worried wheth er (my/our) food would run out before (I/we) got money to buy more. Sometimes true [facility] Medical Equipment Procedure Code Equipment Code Equipment Origin al Text Equipment Identifier Dates Cystoscopy, with retrograde pyelogram and ureteral stent insertion STENT,URETERAL PIGTAIL [id number] FDA Start: 04-10-2021 Cystoscopy, with retrograde pyelogram and ureteral stent insertion STENT,URETERAL PIGTAIL [id number] FDA Start: 04-10-2021 Mental Status Date Assessment Result Facility 06-14-2023 Cognitive function Voice/Name [facility] Work Phone: Clinical Notes 03-14-2020 to 10-24-2024 Rupali Merritt AUD - 10/24/2024 1:30 PM EDTPatient InstructionsDoni Coronado PA-C - 10/24/2024 1:20 PM EDTTelephone Encounter - Melisa Reyes - 09/08/2024 12:02 PM EDTPatient Instructions Note Date & Type Note Facility 10-24-2024 History of Presen t illness Narrative [facility] [place] AUDIOLOGIC EVALUATION REPORT Name: Jillian Burrell CCF#: [id number] Date of Service: 10/24/2024 Date of : 1960 Age: [age] year old Referred by: Doni Coronado PA-C [id number] [id number] Referred for: Evaluation of suspected change in hearing, tinnitus, or balance. Referral documented: In an order in [facility]. Patient's major complaints: Tinnitus in both ears, Dizziness/vertigo/imbalance Jillian Burrell, a 64 year old female, was seen today for an initial audiologic evaluation at the request of Doni Coronado PA-C prior to appointment with him. The following history was obtained by way of Jillian Burrell's previous medical record and direct patient interview: Today, patient reported: Hearing: Denied. Tinnitus: Patient reports bilateral tinnitus that she describes as wind blowing through at all times. Dizziness: Patient has been suffering from vertigo for 10+ years. It varies in severity and she has had it to the point of vomiting and going to the ED. She said it is triggered by motion such as riding in a car. It is also triggered by flashing lights. Otalgia: Denied. Aural fullness/pressure: Denied. History of ear infections: Denied. History of otologic surgeries: Denied. 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 Other Concerns: Denied. IMPRESSIONS RIGHT EAR: Sensorineural hearing loss. LEFT EAR: Sensorineural hearing loss. Comparison of today's results with previous test results : RIGHT EAR: No previous results available LEFT EAR: No previous results available NOTE: A decrease of 20 dB HL at any one test frequency, a decrease of 10 dB HL at any two adjacent test frequencies, or a loss of response at three consecutive frequencies where responses were previously obtained is considered a significant change per LORENA 1994 guidelines. AUDIOLOGIC EVALUATION Following is a brief interpretation of the obtained findings from the audiologic evaluation. Refer to the Auditory Test Record for complete audiometric results. The patient was counseled about the test findings and appropriate audiologic recommendations were made. SUMMARY: See procedures tab for audiometric results. OTOSCOPY RIGHT EAR: Otoscopic inspection revealed ear canal was clear. LEFT EAR: Otoscopic inspection revealed ear canal was clear. TYMPANOMETRY Description of procedure: This test is an objective evaluation of middle ear function. CPT code: 90623 RIGHT EAR: Normal ME function. LEFT EAR: Normal ME function. ACOUSTIC REFLEXES Description of procedure: This test is an objective measure of auditory and facial nerve pathways. CPT code: 78185, 64083 RIGHT EAR PROBE EAR: (ipsi right stimulus ear; contralateral left stimulus ear): Acoustic Reflex Pattern Did not test. Acoustic Reflex Decay (left stimulus ear): Did not test. LEFT EAR PROBE EAR: (ipsi left stimulus ear; contralateral right stimulus ear): Acoustic Reflex Pattern Did not test. Acoustic Reflex Decay (right stimulus ear): Did not test. PURE TONE AUDIOMETRY AND SPEECH TESTING Description of procedure: This test is an objective evaluation hearing sensitivity via air and bone conduction and speech recognition testing. CPT code: 02765 RIGHT EAR: Hearing Sensitivity: Normal hearing from 250-500 Hz sloping to a mild sensorineural hearing loss from 4071-9562 Hz with a moderate unspecified loss at 8000 Hz. Word Recognition Score: Excellent (90-100%). WRS is consistent with hearing sensitivity. Words were presented at 65 dB HL is above (greater than or equal to 60 dB HL) intensity level for average conversational speech. The NU-6 Ordered by Difficulty Word List (10 words) was used for testing. Contralateral masking was used in the non-test ear. LEFT EAR: Hearing Sensitivity: Normal hearing from 250-500 Hz sloping to a mild sensorineural hearing loss from 3105-0364 Hz with a moderate unspecified loss at 8000 Hz. Word Recognition Score: Excellent (90-100%). WRS is consistent with hearing sensitivity. Words were presented at 70 dB HL which is above (greater than or equal to 60 dB HL) intensity level for average conversational speech. The NU-6 Ordered by Difficulty Word List (10 words) was used for testing. Contralateral masking was used in the non-test ear. RECOMMENDATIONS * Continue medical follow-up with Doni Coronado PA-C. * Return for re-evaluation as medically indicated or sooner if change is noted. * Patient was counseled to maintain a sound enriched environment to assist in managing the tinnitus. * The patient was counseled regarding benefits/limitations of hearing aids. * The patient was counseled regarding effective communication strategies to enhance communication ability. Juan Schultz, [facility] Abbrev- iation Definition Degree of hearing sensitivity dB range WNL within normal limits WNL 0 - 20 SNHL sensorineural hearing loss Mild 20-40 CHL conductive hearing loss Moderate 40-55 MHL mixed hearing loss Moderately-Severe 55-70 WRS word recognition score Severe 70-90 ME middle ear Profound 90 + TM tympanic membrane documented in this encounter [facility] 10-24-2024 Note HNO ID: [id number] Author: RUPALI MERRITT AUD Service: ? Author Type: Sprayer Machine Type: Progress Notes Filed: 10/24/2024 13:58 Note Text: [facility] [place] AUDIOLOGIC EVALUATION REPORT Name: Jillian Burrell [facility]#: [id number] Date of Service: 10/24/2024 Date of : 1960 Age: [age] year old Referred by: Doni Coronado PA-C [id number] [facility] [id number] Referred for: Evaluation of suspected change in hearing, tinnitus, or balance. Referral documented: In an order in [facility]. Patient's major complaints: Tinnitus in both ears, Dizziness/vertigo/imbalance Jillian Burrell, a 64 year old female, was seen today for an initial audiologic evaluation at the request of Doni Coronado PA-C prior to appointment with him. The following history was obtained by way of Jillian Burrell's previous medical record and direct patient interview: Today, patient reported: Hearing: Denied. Tinnitus: Patient reports bilateral tinnitus that she describes as wind blowing through at all times. Dizziness: Patient has been suffering from vertigo for 10+ years. It varies in severity and she has had it to the point of vomiting and going to the ED. She said it is triggered by motion such as riding in a car. It is also triggered by flashing lights. Otalgia: Denied. Aural fullness/pressure: Denied. History of ear infections: Denied. History of otologic surgeries: Denied. 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 Other Concerns: Denied. IMPRESSIONS RIGHT EAR: Sensorineural hearing loss. LEFT EAR: Sensorineural hearing loss. Comparison of today's results with previous test results : RIGHT EAR: No previous results available LEFT EAR: No previous results available NOTE: A decrease of 20 dB HL at any one test frequency, a decrease of 10 dB HL at any two adjacent test frequencies, or a loss of response at three consecutive frequencies where responses were previously obtained is considered a significant change per LORENA 1994 guidelines. AUDIOLOGIC EVALUATION Following is a brief interpretation of the obtained findings from the audiologic evaluation. Refer to the Auditory Test Record for complete audiometric results. The patient was counseled about the test findings and appropriate audiologic recommendations were made. SUMMARY: See procedures tab for audiometric results. OTOSCOPY RIGHT EAR: Otoscopic inspection revealed ear canal was clear. LEFT EAR: Otoscopic inspection revealed ear canal was clear. TYMPANOMETRY Description of procedure: This test is an objective evaluation of middle ear function. CPT code: 97948 RIGHT EAR: Normal ME function. LEFT EAR: Normal ME function. ACOUSTIC REFLEXES Description of procedure: This test is an objective measure of auditory and facial nerve pathways. CPT code: 22010, 79648 RIGHT EAR PROBE EAR: (ipsi right stimulus ear; contralateral left stimulus ear): Acoustic Reflex Pattern Did not test. Acoustic Reflex Decay (left stimulus ear): Did not test. LEFT EAR PROBE EAR: (ipsi left stimulus ear; contralateral right stimulus ear): Acoustic Reflex Pattern Did not test. Acoustic Reflex Decay (right stimulus ear): Did not test. PURE TONE AUDIOMETRY AND SPEECH TESTING Description of procedure: This test is an objective evaluation hearing sensitivity via air and bone conduction and speech recognition testing. CPT code: 77504 RIGHT EAR: Hearing Sensitivity: Normal hearing from 250-500 Hz sloping to a mild sensorineural hearing loss from 6135-5721 Hz with a moderate unspecified loss at 8000 Hz. Word Recognition Score: Excellent (90-100%). WRS is consistent with hearing sensitivity. Words were presented at 65 dB HL is above (greater than or equal to 60 dB HL) intensity level for average conversational speech. The NU-6 Ordered by Difficulty Word List (10 words) was used for testing. Contralateral masking was used in the non-test ear. LEFT EAR: Hearing Sensitivity: Normal hearing from 250-500 Hz sloping to a mild sensorineural hearing loss from 7488-7244 Hz with a moderate unspecified loss at 8000 Hz. Word Recognition Score: Excellent (90-100%). WRS is consistent with hearing sensitivity. Words were presented at 70 dB HL which is above (greater than or equal to 60 dB HL) intensity level for average conversational speech. The NU-6 Ordered by Difficulty Word List (10 words) was used for testing. Contralateral masking was used in the non-test ear. RECOMMENDATIONS * Continue medical follow-up with Doni Coronado PA-C. * Return for re-evaluation as medically indicated or sooner if change is noted. * Patient was counseled to maintain a sound enriched environment to assist in managing the tinnitus. * The patient was counseled regarding benefits/limitations of hearing aids. * The patient was counseled regarding effective communication strategies to enhance (more content not included)... [facility] 10-24-2024 Instructions Doni Coronado PA-C - 10/24/2024 1:22 PM EDT Baby oil, coconut oil Ask assisted living about Vestibular Therapy/Rehab What is tinnitus? Tinnitus is a condition in which you hear noises when there is no outside source of the sounds. The noises can have many different qualities (ringing, clicking, buzzing, roaring, whistling, or hissing) and can be soft or loud. Usually, only the person experiencing the tinnitus can hear the sounds. Tinnitus can occur either with or without hearing loss, and can be perceived in one or both ears or in the head. Approximately 50 million Americans have some form of tinnitus. For most people, the sensation usually lasts only a few minutes at a time. About 12 million people have constant or recurring tinnitus that interferes with their daily life so much that they seek professional treatment. For these individuals, tinnitus may result in a loss of sleep, interfere with concentration, and create negative emotional reactions such as despair, frustration, and depression. People of any age can suffer from tinnitus, although it does not typically occur in children. Children with tinnitus should be evaluated for hearing loss or other underlying cause. What causes tinnitus? Although tinnitus often has no specific cause, the most common identifiable causes of tinnitus include the following: - hearing loss - exposure to loud noises - head injury - medication side effects - high or low blood pressure - wax buildup in the ear canal - fluid buildup behind the eardrum - problems of the heart, blood vessels, neck, jaw, or teeth Your doctor will try to determine what is causing the condition. If it is not due to a medication side effect or a general medical condition (such as high blood pressure), he or she may refer you to an anodizer (an ear, nose, and throat doctor) or an poultry scientist (shearing machine tender). It is especially important to see an anodizer if you experience tinnitus in only one ear, tinnitus that sounds like your heartbeat or pulse (pulsatile tinnitus), tinnitus with sudden or fluctuating hearing loss, pressure or fullness in one or both ears, and/or dizziness or balance problems. Unless the cause of the tinnitus is obvious on physical examination, a hearing test is usually required. What is the treatment for tinnitus? Learning the cause of tinnitus is often the most important step to determining treatment options. In many cases there are no medical or surgical treatments for tinnitus; however, there are management strategies that can provide some relief. Treatment options for tinnitus include the following: - Hearing aids. Many people who have tinnitus also have hearing loss. Hearing aids may help provide relief from tinnitus by making it less noticeable. This is done by increasing the background noise level. Another benefit of hearing aids is that they improve communication by increasing incoming speech sounds. - Sound generators. These adjustable ear-level devices produce a broadband sound (pleasant shower-like sound) that is delivered directly to the ear. These devices help people pay less attention to their tinnitus by masking it with other sounds. Sound generators are also used for tinnitus retraining therapy. (This therapy combines individualized counseling with use of sound generators.) - Combination instruments. A hearing aid and sound generator can be housed in a single unit. These units are best for people who need hearing aids and may benefit from the use of sound generators. - Environmental enrichment devices. A variety of ernnko-fj-gng devices can be used to increase the level of background sound in order to decrease the perception of tinnitus. These include tabletop sound machines that can generate different types of sounds (for example, rain, wind, waterfalls), CD/mp3 recordings of music and/or nature/environmental sounds and apps specifically created for tinnitus relief that can be used with smartphones or tablets. - Neuromonics. A pleasant acoustic signal (embedded in music) is delivered to the ear through high fidelity earphones and a small credit-card size processor. This form of music therapy is a very pleasant alternative to other types of sound therapy and requires at least 6 months of active treatment time. The music also tends to further improve relaxation, which helps people cope with their tinnitus. - Relaxation techniques. Many people who have tinnitus find that it worsens when they are under stress. Learning techniques to increase relaxation and ease stress can help people better deal with the frustrations of tinnitus. - Other options. Cognitive behavioral or acceptance therapy with a psychologist can help people learn ways to limit the attention given to tinnitus and also help them better manage the stress and anxiety resulting from the tinnitus. Management of a temporomandibular disorder (TMD) (the area where the lower jaw and skull meet) by a dentist may be of value in helping to control dental issues, such teeth clenching and grinding, which are associated with tinnitus. An examination by a physical therapist may identify problems with the movement of the head, neck and jaw that can contribute to tinnitus. Follow-up physical therapy can help restore the proper movement of the neck and jaw and improve posture, which may reduce the severity of tinnitus. Certain behaviors can make tinnitus worse and should be avoided whenever possible. These include: - Smoking or using other tobacco products - Drinking alcohol - Exposure to loud noises and sounds (If you work in a loud setting, wear earplugs to protect your hearing.) References [employer] Otolaryngology - Head and Neck [employer]. Tinnitus Accessed 05/15/2013. [place] Tinn[employer]. Tinnitus Accessed 05/15/2013. [place] [employer]. Tinnitus: Ringing in Your Ears Accessed 05/15/2013. National [place] on Deafness and Other Communication Disorders (NIDCD). Tinnitus Accessed 05/15/2013. Copyright 5887-9379 The [facility]. All rights reserved documented in this encounter [facility] 10-24-2024 Note HNO ID: [id number] Author: DONI CORONADO PA-C Service: ? Author Type: Physician Optimization Engineer Type: Progress Notes Filed: 10/24/2024 14:57 Note Text: [facility] [place] [facility] NOTE CC: Jillian Burrell is a 64 year old female who is seen at the request of Angelika Wilson APRN, CNP for evaluation of Dizziness and Tinnitus, bilateral. My findings and recommendations will be communicated to the referring provider via the shared electronic medical record. ASSESSMENT: Dizziness Tinnitus, bilateral Sensorineural hearing loss, bilateral Vertigo PLAN: - Discussed results of hearing test with patient; all patient questions answered - Annual hearing test, avoidance of noise exposure, hearing protection as needed, discontinue Qtip use, no foreign objects in ears - Educated patient on tinnitus and conservative management options; patient education handout provided - Discussed benefits of Vestibular PT, Vestibular Test Battery, consult to Neurology, close observation and follow up; patient will inquire about Vestibular PT/Rehab at assisted living facility - Advised patient to maintain dizzy diary to further characterize symptoms including precipitating events, aggravating factors, frequency, duration, intensity - Advised patient to maintain healthy lifestyle including balanced diet, daily exercise and activity, routine sleep schedule, adequate oral hydration - Advised patient on red flag warning signs, symptoms that warrant immediate evaluation in ER - Follow up in 12 months with hearing test; sooner if clinically indicated Doni Coronado PA-C Comprehensive E[facility] HPI: 64 year old female presents to clinic for evaluation of Dizziness and Tinnitus, bilateral. Patient reports longstanding tinnitus, bilateral, for years. Patient describes tinnitus as like air blowing through my ears white noise, and occasional ringing. Patient denies pulsatile tinnitus. With regards to hearing, patient denies changes in hearing or concern for hearing loss. Patientdenies history of ear infections, PE tubes, previous ear surgeries. 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 Patient endorses family history of hearing loss, paternal grandmother and father. Patient also reports 10+ years of dizziness, vertigo. Patient initially assumed related to anxiety and depression, controlled with citalopram. Patient describes bouts of room-spinning vertigo, nausea typically without precipitating events and vary in frequency, duration, and intensity. Patient recalls worst episode while watching NASCAR on large TV and rocking on chair triggered severe vertigo, nausea, vomiting. Patient reports since February 2024, onset of lightheaded float sensation different than above symptoms. Patient denies dizziness, vertigo managed with meclizine. Patient denies personal or family history of Meniere's. Patient denies history of headaches, migraines. Patient denies history of head or neck trauma. Hearing test 10/24/2024: IMPRESSIONS RIGHT EAR: Sensorineural hearing loss. LEFT EAR: Sensorineural hearing loss. Comparison of today's results with previous test results : RIGHT EAR: No previous results available LEFT EAR: No previous results available NOTE: A decrease of 20 dB HL at any one test frequency, a decrease of 10 dB HL at any two adjacent test frequencies, or a loss of response at three consecutive frequencies where responses were previously obtained is considered a significant change per LORENA 1994 guidelines. AUDIOLOGIC EVALUATION Following is a brief interpretation of the obtained findings from the audiologic evaluation. Refer to the Auditory Test Record for complete audiometric results. The patient was counseled about the test findings and appropriate audiologic recommendations were made. SUMMARY: See procedures tab for audiometric results. OTOSCOPY RIGHT EAR: Otoscopic inspection revealed ear canal was clear. LEFT EAR: Otoscopic inspection revealed ear canal was clear. TYMPANOMETRY Description of procedure: This test is an objective evaluation of middle ear function. CPT code: 19833 RIGHT EAR: Normal ME function. LEFT EAR: Normal ME function. ACOUSTIC REFLEXES Description of procedure: This test is an objective measure of auditory and facial nerve pathways. CPT code: 48202, 32613 RIGHT EAR PROBE EAR: (ipsi right stimulus ear; contralateral left stimulus ear): Acoustic Reflex Pattern Did not test. Acoustic Reflex Decay (left stimulus ear): Did not test. LEFT EAR PROBE EAR: (ipsi left stimulus ear; contralateral right stimulus ear): Acoustic Reflex Pattern Did not test. Acoustic Reflex Decay (right stimulus ear): Did not test. PURE TONE AUDIOMETRY AND SPEECH TESTING Description of procedure: This test is an objective evaluation hearing sensitivity (more content not included)... [facility] 10-24-2024 History of Presen t illness Narrative Images from the original note were not included. [facility] [place] [facility] NOTE CC: Jillian Burrell is a 64 year old female who is seen at the request of Angelika Wilson APRN, CNP for evaluation of Dizziness and Tinnitus, bilateral. My findings and recommendations will be communicated to the referring provider via the shared electronic medical record. ASSESSMENT: Dizziness Tinnitus, bilateral Sensorineural hearing loss, bilateral Vertigo PLAN: - Discussed results of hearing test with patient; all patient questions answered - Annual hearing test, avoidance of noise exposure, hearing protection as needed, discontinue Qtip use, no foreign objects in ears - Educated patient on tinnitus and conservative management options; patient education handout provided - Discussed benefits of Vestibular PT, Vestibular Test Battery, consult to Neurology, close observation and follow up; patient will inquire about Vestibular PT/Rehab at assisted living facility - Advised patient to maintain dizzy diary to further characterize symptoms including precipitating events, aggravating factors, frequency, duration, intensity - Advised patient to maintain healthy lifestyle including balanced diet, daily exercise and activity, routine sleep schedule, adequate oral hydration - Advised patient on red flag warning signs, symptoms that warrant immediate evaluation in ER - Follow up in 12 months with hearing test; sooner if clinically indicated Doni Coronado PA-C [facility] HPI: 64 year old female presents to clinic for evaluation of Dizziness and Tinnitus, bilateral. Patient reports longstanding tinnitus, bilateral, for years. Patient describes tinnitus as like air blowing through my ears white noise, and occasional ringing. Patient denies pulsatile tinnitus. With regards to hearing, patient denies changes in hearing or concern for hearing loss. Patient denies history of ear infections, PE tubes, previous ear surgeries. 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 Patient endorses family history of hearing loss, paternal grandmother and father. Patient also reports 10+ years of dizziness, vertigo. Patient initially assumed related to anxiety and depression, controlled with citalopram. Patient describes bouts of room-spinning vertigo, nausea typically without precipitating events and vary in frequency, duration, and intensity. Patient recalls worst episode while watching NASCAR on large TV and rocking on chair triggered severe vertigo, nausea, vomiting. Patient reports since February 2024, onset of lightheaded float sensation different than above symptoms. Patient denies dizziness, vertigo managed with meclizine. Patient denies personal or family history of Meniere's. Patient denies history of headaches, migraines. Patient denies history of head or neck trauma. Hearing test 10/24/2024: IMPRESSIONS RIGHT EAR: Sensorineural hearing loss. LEFT EAR: Sensorineural hearing loss. Comparison of today's results with previous test results : RIGHT EAR: No previous results available LEFT EAR: No previous results available NOTE: A decrease of 20 dB HL at any one test frequency, a decrease of 10 dB HL at any two adjacent test frequencies, or a loss of response at three consecutive frequencies where responses were previously obtained is considered a significant change per LORENA 1994 guidelines. AUDIOLOGIC EVALUATION Following is a brief interpretation of the obtained findings from the audiologic evaluation. Refer to the Auditory Test Record for complete audiometric results. The patient was counseled about the test findings and appropriate audiologic recommendations were made. SUMMARY: See procedures tab for audiometric results. OTOSCOPY RIGHT EAR: Otoscopic inspection revealed ear canal was clear. LEFT EAR: Otoscopic inspection revealed ear canal was clear. TYMPANOMETRY Description of procedure: This test is an objective evaluation of middle ear function. CPT code: 69844 RIGHT EAR: Normal ME function. LEFT EAR: Normal ME function. ACOUSTIC REFLEXES Description of procedure: This test is an objective measure of auditory and facial nerve pathways. CPT code: 64847, 85244 RIGHT EAR PROBE EAR: (ipsi right stimulus ear; contralateral left stimulus ear): Acoustic Reflex Pattern Did not test. Acoustic Reflex Decay (left stimulus ear): Did not test. LEFT EAR PROBE EAR: (ipsi left stimulus ear; contralateral right stimulus ear): Acoustic Reflex Pattern Did not test. Acoustic Reflex Decay (right stimulus ear): Did not test. PURE TONE AUDIOMETRY AND SPEECH TESTING Description of procedure: This test is an objective evaluation hearing sensitivity via air and bone conduction and speech recognition testing. CPT code: 83887 RIGHT EAR: Hearing Sensitivity: Normal hearing from 250-500 Hz sloping to a mild sensorineural hearing loss from 2180-6563 Hz with a moderate unspecified loss at 8000 Hz. Word Recognition Score: Excellent (90-100%). WRS is consistent with hearing sensitivity. Words were presented at 65 dB HL is above (greater than or equal to 60 dB HL) intensity level for average conversational speech. The NU-6 Ordered by Difficulty Word List (10 words) was used for testing. Contralateral masking was used in the non-test ear. LEFT EAR: Hearing Sensitivity: Normal hearing from 250-500 Hz sloping to a mild sensorineural hearing loss from 0928-1312 Hz with a moderate unspecified loss at 8000 Hz. Word Recognition Score: Excellent (90-100%). WRS is consistent with hearing sensitivity. Words were presented at 70 dB HL which is above (greater than or equal to 60 dB HL) intensity level for average conversational speech. The NU-6 Ordered by Difficulty Word List (10 words) was used for testing. Contralateral masking was used in the non-test ear. Past medical history: PAST MEDICAL HISTORY Diagnosis Date Depression Generalized anxiety disorder Hiatal hernia Hypothyroid Kidney stones Obstructive sleep apnea syndrome just started Vertigo Past surgical history: PAST SURGICAL HISTORY Procedure Laterality Date HEEL-CALCANEUS Bilateral PAST SURGICAL HISTORY OF kidney stone REMOVAL GALLBLADDER 1994 Current medication(s): Current Outpatient Medications Medication Sig gabapentin (NEURONTIN) 400 mg capsule Take 1 capsule by mouth two times a day. (MAY MAKE DROWSY) meloxicam (MOBIC) 15 mg tablet TAKE 1 TABLET DAILY WITH FOOD citalopram (CELEXA) 40 mg tablet Take 1 tablet by mouth once daily. Cyanocobalamin 1,000 mcg TbER Take 1 tablet by mouth once daily. levothyroxine (SYNTHROID) 88 mcg tablet Take 1 tablet by mouth once daily. benzonatate (TESSALON PERLE) 100 mg capsule Take 1 capsule by mouth three times a day as needed. [facility] [place] [facility] fluticasone (FLONASE) 50 mcg/actuation nasal spray Use 2 Sprays in each nostril once daily as needed for cold/allergy symptoms. Rinse mouth after use. ergocalciferol 50,000 unit capsule (VITAMIN D2, DRISDOL) Take 1 capsule by mouth one time a week. meclizine (ANTIVERT) 25 mg tab TAKE 1 TABLET THREE TIMES A DAY NEEDED FOR DIZZINESS PEG 400-propylene glycol (SYSTANE ULTRA) 0.4-0.3 % ophthalmic solution Use 1 Drop in both eyes twice daily. acetaminophen (TYLENOL) 500 mg tablet Take 1-2 tablets by mouth three times daily. No current facility-administered medications for this visit. Allergies: ALLERGIES Allergen Reactions Augmentin [Amoxicil* GI Upset Pt does not want to take medication again as it made her very sick. Codeine Itching Oxycodone Itching Zanaflex [Tizanidin* Other: See Comments Made pt very anxious Social history: SOCIAL HISTORY[1] Family history: FAMILY HISTORY Problem Relation Age of Onset Diabetes Mother Glaucoma Mother Macular Degen Mother Diabetes Father No Known Problems Sister There are no exam notes on file for this visit. ROS: CONSTITUTIONAL: No fevers, chills, nightsweats, unintended weight loss; + lightheadedness HEAD: - headaches, - head injury EYES: + glasses/contact lens, - changes in vision, - diplopia, - blurry vision, - floaters EARS: - hearing loss, - change in hearing, + tinnitus, - otalgia, - ear pressure, - aural fullness, - otorrhea, + itching, - autophony, - ear infections, - PE tubes NOSE & SINUSES: + nasal congestion, + rhinorrhea, - PND, - epistaxis, - sense of smell, - history of nasal polyps, - sinus trouble, - sinus pressure, - sinus pain MOUTH & THROAT: - soreness, - dryness, - ulcers, - sore throat, - hoarseness, - change in voice, - teeth (caries, dentures, extractions, abscesses) NECK: - neck lumps, - goiter, - neck pain, - swollen lymph nodes or glands PULM: No dyspnea, unexplained cough CV: No chest pain, shortness of breath, leg swelling, or palpitations GI: No dysphagia/odynophagia, problematic reflux. No nausea, vomiting, or diarrhea NEURO: No new balance problems, + dizziness, + vertigo. + peripheral weakness/paresthesias or numbness PSYCH: + depression, + anxiety PHYSICAL EXAM: GENERAL: 64 year old female is well developed, well nourished, without obvious deformities, in no acute distress, ambulates with cane and wheelchair COMMUNICATION: The patient speaks with a normal, clear voice without hoarseness. No stridor or stertor. Hearing is grossly normal OVERALL FACIAL APPEARANCE: No obvious scars, lesions, or masses EYES: Extraocular muscles are intact, no diplopia on primary gaze EARS: Externally normal in appearance, without scars, lesions, masses, or tenderness. Right EAC: patent; no swelling, redness, or obstruction; dry skin, flaking R TM: visualized and intact; pearly zayas and translucent, landmarks undistorted; no fluid behind TM R Pneumotoscopy: TM is mobile Left EAC: patent; no swelling, redness, or obstruction; dry skin, flaking L TM: visualized and intact; pearly zayas and translucent, landmarks undistorted; no fluid behind TM L Pneumotoscopy: TM is mobile NOSE: Externally normal in appearance, without scars, lesions, or masses. There is no tenderness with percussion over the paranasal sinuses. Nasal passageways are patent. The mucosa is pink and moist without lesions, visible turbinates grossly normal on anterior rhinoscopy. Septum is midline. ORAL CAVITY AND OROPHARYNX: Teeth are in fair repair and nontender. The lips, gums, oral mucosa, hard and soft palates, tongue, tonsil area, and posterior pharyngeal mucosa are without lesions. Uvula midline. No pharyngeal swelling, oropharyngeal exudate, posterior oropharyngeal erythema, or uvula swelling. Gag reflex intact. NECK: The neck appears symmetric without scars and on palpation is without masses or lymphadenopathy. Trachea is midline and mobile. Full range of motion without symptoms. MSK: TMJ joint palpated and revealed no crepitation, no TTP NEURO: Patient is Alert and Oriented to person, place, time, and situation. Cranial nerves II-XII grossly intact RESPIRATORY: Breathing comfortably, no evidence accessory muscle use, no intercostal retractions CV: Strong carotid artery pulse with no bruit RADS: None LABS: Relevant labs were reviewed and discussed with patient. OUTSIDE RECORDS: None PROCEDURE: None Doni Coronado PA-C Comprehensive E[facility] Medical Decision Making: Problems: Moderate: 2+ stable chronic illnesses Data: Unique test result(s) reviewed: 1 Risk: Low: Low risk from testing/treatment Medical Decision Making Level: 3 - Low [1] Social History Tobacco Use Smoking status: Never Smokeless tobacco: Never Vaping Use Vaping status: Never Used Substance Use Topics Alcohol use: Not Currently Drug use: Never documented in this encounter [facility] 09-13-2024 Note HNO ID: [id number] Author: ANGELIKA WILSON APRN.D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 Service: ? Author Type: Nurse Practitioner Type: Progress Notes Filed: 09/13/2024 19:02 Note Text: CC: Patient presents with: Recheck: Follow up assisted living forms HPI Jillian Burrell is a 64 year old female who presents today for needing updated forms to get into assisted living. Had done this once before but was almost 3 months ago so [facility] requiring more updated visit. Recording using [employer] software for draft documentation of the visit was discussed with the patient/authorized career services representative; all questions welcomed and answered. Patient/authorized career services representative agreed to proceed Hypothyroidism: - Taking levothyroxine 88 mcg daily. - Denies abnormal changes in weight or energy levels. Depression: - Well-controlled with citalopram 1 tablet daily. - Denies thoughts of self-harm or harm to others. -sleeping well and denies changes in appetite Chronic Vertigo: - Managed with meclizine. - Missed a recent ENT appointment for a dizzy test, rescheduled for next week. Sleep Apnea: - Does not use CPAP due to discomfort and feeling of smothering. Chronic Low Back Pain: - Uses a cane for ambulation and a wheelchair for long distances. - Looking forward to utilizing physical therapy for improving mobility and pain when she gets to assisted living Uses gabapentin and meloxicam for pain. Right Leg Pain: - Intermittent sharp pain in the right thigh, x2-3 weeks. - Described as a hot poker sensation lasting ~2 seconds. - Aggravated by walking and twisting movements, particularly when getting out of the car. - Denies known trauma, weakness, or loss of sensation. - Suspects pain may be related to sitting in a recliner with a cushion on her lap. - Denies pain to touch or redness in the area. REVIEW OF SYSTEMS See HPI PAST MEDICAL HISTORY Diagnosis Date Depression Generalized anxiety disorder Hiatal hernia Hypothyroid Kidney stones Obstructive sleep apnea syndrome just started Vertigo PAST SURGICAL HISTORY Procedure Laterality Date HEEL-CALCANEUS Bilateral PAST SURGICAL HISTORY OF kidney stone REMOVAL GALLBLADDER 1994 ALLERGIES Augmentin [Amoxicillin-Pot Clavulanate], Codeine, Oxycodone, and Zanaflex [Tizanidine] MEDICATIONS gabapentin (NEURONTIN) 400 mg capsule Take 1 capsule by mouth two times a day. (MAY MAKE DROWSY) meloxicam (MOBIC) 15 mg tablet TAKE 1 TABLET DAILY WITH FOOD citalopram (CELEXA) 40 mg tablet Take 1 tablet by mouth once daily. Cyanocobalamin 1,000 mcg TbER Take 1 tablet by mouth once daily. levothyroxine (SYNTHROID) 88 mcg tablet Take 1 tablet by mouth once daily. benzonatate (TESSALON PERLE) 100 mg capsule Take 1 capsule by mouth three times a day as needed. [facility] [place] Walker fluticasone (FLONASE) 50 mcg/actuation nasal spray Use 2 Sprays in each nostril once daily as needed for cold/allergy symptoms. Rinse mouth after use. ergocalciferol 50,000 unit capsule (VITAMIN D2, DRISDOL) Take 1 capsule by mouth one time a week. meclizine (ANTIVERT) 25 mg tab TAKE 1 TABLET THREE TIMES A DAY NEEDED FOR DIZZINESS PEG 400-propylene glycol (SYSTANE ULTRA) 0.4-0.3 % ophthalmic solution Use 1 Drop in both eyes twice daily. acetaminophen (TYLENOL) 500 mg tablet Take 1-2 tablets by mouth three times daily. FAMILY HISTORY Problem Relation Age of Onset Diabetes Mother Glaucoma Mother Macular Degen Mother Diabetes Father No Known Problems Sister Social History Tobacco Use Smoking status: Never Smokeless tobacco: Never Vaping Use Vaping status: Never Used Substance Use Topics Alcohol use: Not Currently Drug use: Never PHYSICAL EXAM BP 122/84 Pulse 88 Resp 16 Wt (!) 140.2 kg (309 lb) SpO2 96% BMI 48.40 kg/m? General Appearance: well appearing, in no acute distress, alert Skin: Skin color, texture, turgor normal for age; Eyes: conjunctiva pink and moist, no icterus, sclera white, non-injected Lungs: Lungs clear to auscultation. No wheezing, rhonchi, rales. Heart: RRR without murmur, gallop, or rubs. No ectopy BLE Extremities: No deformities, edema, skin discoloration, or tenderness. Health maintenance reviewed with patient: Cervical Cancer Screening Never done Mammogram Screening Never done Colorectal Cancer Screening Never done Medicare Advantage Annual Wellness Visit Never done DTaP,Tdap,Td Vaccine(1 - Tdap) due on 02/02/2025 RSV Vaccine(1 - Risk 60-74 years 1-dose series) due on 02/02/2025 Hepatitis C Screening due on 02/02/2025 HIV Screening due on 02/02/2025 Shingrix Vaccine(1 of 2) due on 02/02/2025 Pneumococcal Vaccine: 50+(1 of 1 - PCV) due on 02/02/2025 Influenza Vaccine(1) due on 10/09/2024 Annual PCP Team Chronic Disease Visit due on 09/13/2025 Diabetes Screening due on 07/15/2027 Lipid Screening due on 02/02/2029 DATA REVIEWED: No new labs Assessment/Plan 1. Anxiety and depression ( (more content not included)... [facility] 09-08-2024 Telephone encounter Note Prescription Refill Information The patient has been identified by name and date of : Yes Caregiver verified no other encounters exist for this prescription request: Yes Caregiver confirmed with patient/requestor that no other refills are due, in the near future, with this provider at this time: Yes The last office visit in the department: 08-17-24 Does the patient have a future office visit with this provider/department: Yes Requested Prescriptions Pending Prescriptions Disp Refills meloxicam (MOBIC) 15 mg tablet 90 tablet 3 Sig: TAKE 1 TABLET DAILY WITH FOOD Melisa Reyes September 08, 2024 12:03 PM [facility] 09-08-2024 Miscellaneous Notes Prescription Refill Information The patient has been identified by name and date of : Yes Caregiver verified no other encounters exist for this prescription request: Yes Caregiver confirmed with patient/requestor that no other refills are due, in the near future, with this provider at this time: Yes The last office visit in the department: 08-17-24 Does the patient have a future office visit with this provider/department: Yes Requested Prescriptions Pending Prescriptions Disp Refills meloxicam (MOBIC) 15 mg tablet 90 tablet 3 Sig: TAKE 1 TABLET DAILY WITH FOOD Melisa Reyes September 08, 2024 12:03 PM documented in this encounter [facility] 08-17-2024 Note HNO ID: [id number] Author: ANGELIKA WILSON APRN.D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 Service: ? Author Type: Nurse Practitioner Type: Progress Notes Filed: 08/17/2024 14:17 Note Text: This Team Access Model visit is a virtual encounter. It required patient-provider interaction for the medical decision making as documented below. Patient agrees to the visit: Yes Patient Location: [place] CC: Patient presents with: Medication Problem HPI Jillian Burrell is a 64 year old female who is contacted today for a virtual visit. This is an established patient of Dr. Nigel Carrillo MD. Would like to go back to the 40mg of citalopram. Was on this previously but was decreased to 20mg when restarted due to not having for a while. Depression, crying, and motivation has improved but not fully. Alcohol use: does not drink any alcohol Drug use: No Appetite: good Suicidal Thoughts: No suicidal ideation, intent or plan Support: Comes from multiple sources including friends. Dizziness and floaty sensation has improved now that she is taking gabapentin that is not . REVIEW OF SYSTEMS See HPI PAST MEDICAL HISTORY Diagnosis Date Depression Generalized anxiety disorder Hiatal hernia Hypothyroid Kidney stones Obstructive sleep apnea syndrome just started Vertigo PAST SURGICAL HISTORY Procedure Laterality Date HEEL-CALCANEUS Bilateral PAST SURGICAL HISTORY OF kidney stone REMOVAL GALLBLADDER 1994 ALLERGIES Augmentin [Amoxicillin-Pot Clavulanate], Codeine, Oxycodone, and Zanaflex [Tizanidine] MEDICATIONS gabapentin (NEURONTIN) 400 mg capsule TAKE 1 CAPSULE THREE TIMES A DAY WITH MEALS (MAY MAKE DROWSY) citalopram (CELEXA) 20 mg tablet Take 1 tablet by mouth once daily. Cyanocobalamin 1,000 mcg TbER Take 1 tablet by mouth once daily. levothyroxine (SYNTHROID) 88 mcg tablet Take 1 tablet by mouth once daily. meloxicam (MOBIC) 15 mg tablet TAKE 1 TABLET DAILY WITH FOOD benzonatate (TESSALON PERLE) 100 mg capsule Take 1 capsule by mouth three times a day as needed. [facility] [place] Standard Walker fluticasone (FLONASE) 50 mcg/actuation nasal spray Use 2 Sprays in each nostril once daily as needed for cold/allergy symptoms. Rinse mouth after use. ergocalciferol 50,000 unit capsule (VITAMIN D2, DRISDOL) Take 1 capsule by mouth one time a week. meclizine (ANTIVERT) 25 mg tab TAKE 1 TABLET THREE TIMES A DAY NEEDED FOR DIZZINESS PEG 400-propylene glycol (SYSTANE ULTRA) 0.4-0.3 % ophthalmic solution Use 1 Drop in both eyes twice daily. acetaminophen (TYLENOL) 500 mg tablet Take 1-2 tablets by mouth three times daily. FAMILY HISTORY Problem Relation Age of Onset Diabetes Mother Glaucoma Mother Macular Degen Mother Diabetes Father No Known Problems Sister Social History Tobacco Use Smoking status: Never Smokeless tobacco: Never Vaping Use Vaping status: Never Used Substance Use Topics Alcohol use: Not Currently Drug use: Never EXAM: Virtual visit completed using video, limited exam completed. GENERAL: alert and appropriate, in no distress, well-hydrated, well nourished, and happy, smiling, interactive RESPIRATORY: breathing non-labored CHEST: equal chest rise with normal respiratory effort Behavior: good eye contact Speech: normal and fluent and coherent Mood: happy Affect: appropriate Perceptions: none Thought process: goal directed Thought Content: normal Intelligence level: normal Insight: good Judgment: good DATA REVIEWED: No new labs Cervical Cancer Screening Never done Mammogram Screening Never done Colorectal Cancer Screening Never done Medicare Advantage Annual Wellness Visit Never done DTaP,Tdap,Td Vaccine(1 - Tdap) due on 02/02/2025 RSV Vaccine(1 - Risk 60-74 years 1-dose series) due on 02/02/2025 Hepatitis C Screening due on 02/02/2025 HIV Screening due on 02/02/2025 Shingrix Vaccine(1 of 2) due on 02/02/2025 Covid-19 Vaccine(4 - season) due on 02/02/2025 Pneumococcal Vaccine: 50+(1 of 1 - PCV) due on 02/02/2025 Influenza Vaccine(1) due on 10/09/2024 Annual PCP Team Chronic Disease Visit due on 07/14/2025 Diabetes Screening due on 07/15/2027 Lipid Screening due on 02/02/2029 ASSESSMENT/PLAN: 1. Anxiety and depression - ICD9: 300.00, 311, ICD10: F41.9, F32.A (primary diagnosis) Improved with treatment. Will increase to original dosage. - Reviewed concept of neurochemical imbalance wth depression/anxiety, treatment options and benefits of counseling in combination with medication. Also reviewed benefits of sleep hygeine, diet and exercise - Instructed patient to contact office or [id number] after-hours promptly should condition worsen or any new symptoms appear. - [facility]ing [facility] and after hours crisis line 2. Dizziness - ICD9: 780.4, ICD10: R42 Resolved with discontinuation of medications. Prescription instructions reviewed with patient as applicable. Potenti (more content not included)... [facility] 08-17-2024 History of Presen t illness Narrative This Team Access Model visit is a virtual encounter. It required patient-provider interaction for the medical decision making as documented below. Patient agrees to the visit: Yes Patient Location: [place] CC: Patient presents with: Medication Problem HPI Jillian Burrell is a 64 year old female who is contacted today for a virtual visit. This is an established patient of Dr. Nigel Carrillo MD. Would like to go back to the 40mg of citalopram. Was on this previously but was decreased to 20mg when restarted due to not having for a while. Depression, crying, and motivation has improved but not fully. Alcohol use: does not drink any alcohol Drug use: No Appetite: good Suicidal Thoughts: No suicidal ideation, intent or plan Support: Comes from multiple sources including friends. Dizziness and floaty sensation has improved now that she is taking gabapentin that is not . REVIEW OF SYSTEMS See HPI PAST MEDICAL HISTORY Diagnosis Date Depression Generalized anxiety disorder Hiatal hernia Hypothyroid Kidney stones Obstructive sleep apnea syndrome just started Vertigo PAST SURGICAL HISTORY Procedure Laterality Date HEEL-CALCANEUS Bilateral PAST SURGICAL HISTORY OF kidney stone REMOVAL GALLBLADDER 1994 ALLERGIES Augmentin [Amoxicillin-Pot Clavulanate], Codeine, Oxycodone, and Zanaflex [Tizanidine] MEDICATIONS gabapentin (NEURONTIN) 400 mg capsule TAKE 1 CAPSULE THREE TIMES A DAY WITH MEALS (MAY MAKE DROWSY) citalopram (CELEXA) 20 mg tablet Take 1 tablet by mouth once daily. Cyanocobalamin 1,000 mcg TbER Take 1 tablet by mouth once daily. levothyroxine (SYNTHROID) 88 mcg tablet Take 1 tablet by mouth once daily. meloxicam (MOBIC) 15 mg tablet TAKE 1 TABLET DAILY WITH FOOD benzonatate (TESSALON PERLE) 100 mg capsule Take 1 capsule by mouth three times a day as needed. [facility] [place] Standard Walker fluticasone (FLONASE) 50 mcg/actuation nasal spray Use 2 Sprays in each nostril once daily as needed for cold/allergy symptoms. Rinse mouth after use. ergocalciferol 50,000 unit capsule (VITAMIN D2, DRISDOL) Take 1 capsule by mouth one time a week. meclizine (ANTIVERT) 25 mg tab TAKE 1 TABLET THREE TIMES A DAY NEEDED FOR DIZZINESS PEG 400-propylene glycol (SYSTANE ULTRA) 0.4-0.3 % ophthalmic solution Use 1 Drop in both eyes twice daily. acetaminophen (TYLENOL) 500 mg tablet Take 1-2 tablets by mouth three times daily. FAMILY HISTORY Problem Relation Age of Onset Diabetes Mother Glaucoma Mother Macular Degen Mother Diabetes Father No Known Problems Sister Social History Tobacco Use Smoking status: Never Smokeless tobacco: Never Vaping Use Vaping status: Never Used Substance Use Topics Alcohol use: Not Currently Drug use: Never EXAM: Virtual visit completed using video, limited exam completed. GENERAL: alert and appropriate, in no distress, well-hydrated, well nourished, and happy, smiling, interactive RESPIRATORY: breathing non-labored CHEST: equal chest rise with normal respiratory effort Behavior: good eye contact Speech: normal and fluent and coherent Mood: happy Affect: appropriate Perceptions: none Thought process: goal directed Thought Content: normal Intelligence level: normal Insight: good Judgment: good DATA REVIEWED: No new labs Cervical Cancer Screening Never done Mammogram Screening Never done Colorectal Cancer Screening Never done Medicare Advantage Annual Wellness Visit Never done DTaP,Tdap,Td Vaccine(1 - Tdap) due on 02/02/2025 RSV Vaccine(1 - Risk 60-74 years 1-dose series) due on 02/02/2025 Hepatitis C Screening due on 02/02/2025 HIV Screening due on 02/02/2025 Shingrix Vaccine(1 of 2) due on 02/02/2025 Covid-19 Vaccine(4 - season) due on 02/02/2025 Pneumococcal Vaccine: 50+(1 of 1 - PCV) due on 02/02/2025 Influenza Vaccine(1) due on 10/09/2024 Annual PCP Team Chronic Disease Visit due on 07/14/2025 Diabetes Screening due on 07/15/2027 Lipid Screening due on 02/02/2029 ASSESSMENT/PLAN: 1. Anxiety and depression - ICD9: 300.00, 311, ICD10: F41.9, F32.A (primary diagnosis) Improved with treatment. Will increase to original dosage. - Reviewed concept of neurochemical imbalance [facility] depression/anxiety, treatment options and benefits of counseling in combination with medication. Also reviewed benefits of sleep hygeine, diet and exercise - Instructed patient to contact office or [id number] after-hours promptly should condition worsen or any new symptoms appear. - [facility] and after hours crisis line 2. Dizziness - ICD9: 780.4, ICD10: R42 Resolved with discontinuation of medications. Prescription instructions reviewed with patient as applicable. Potential red flag symptoms discussed with the patient. Reviewed appropriate action plan to take if red flag symptoms occur. Patient agreeable to treatment plan. During this patient visit I have spent approximately 25 minutes in counseling regarding treatment options, medications, and coordinating care. Angelika Wilson APRN.CNP documented in this encounter [facility] 08-17-2024 Telephone encounter Note Papers filled out and faxed end of june. appointment today to discuss further. Angelika Wilson APRN.CNP [facility] 08-17-2024 Miscellaneous Notes Papers filled out and faxed end of june. appointment today to discuss further. Angelika iWlson APRN.CNP Patient reports at her appt with Angelika, on 06/28/24, Angelika said she would fax paperwork to [facility], so that patient could move there. Angelika was also going to fax the ov notes and demographics. Do not see paperwork in scanned documents. Reports [facility] has not received the paperwork. Pt was hoping to move in by the end of September. Asking office to please send paperwork to [facility]. Pt will call back tomorrow to check on this. documented in this encounter [facility] 08-07-2024 Telephone encounter Note Patient reports at her appt with Angel[facility], on 06/28/24, Angelika said she would fax paperwork to [facility], so that patient could move there. [facility] was also going to fax the ov notes and demographics. Do not see paperwork in scanned documents. Reports [facility] has not received the paperwork. Pt was hoping to move in by the end of September. Asking office to please send paperwork to [facility]. Pt will call back tomorrow to check on this. [facility] 07-18-2024 Telephone encounter Note The following approved medication requests have been transmitted electronically. Requested Prescriptions Signed Prescriptions Disp Refills gabapentin (NEURONTIN) 400 mg capsule 270 capsule 3 Sig: TAKE 1 CAPSULE THREE TIMES A DAY WITH MEALS (MAY MAKE DROWSY) Richelle Casillas MA [facility] 07-18-2024 Miscellaneous Notes The following approved medication requests have been transmitted electronically. Requested Prescriptions Signed Prescriptions Disp Refills gabapentin (NEURONTIN) 400 mg capsule 270 capsule 3 Sig: TAKE 1 CAPSULE THREE TIMES A DAY WITH MEALS (MAY MAKE DROWSY) Richelle Casillas MA Prescription Refill Information The patient has been identified by name and date of : Yes Caregiver verified no other encounters exist for this prescription request: Yes Caregiver confirmed with patient/requestor that no other refills are due, in the near future, with this provider at this time: Yes The last office visit in the department: 07/14/24 Does the patient have a future office visit with this provider/department: Yes 08/17/24 Requested Prescriptions Pending Prescriptions Disp Refills gabapentin (NEURONTIN) 400 mg capsule 270 capsule 3 Sig: TAKE 1 CAPSULE THREE TIMES A DAY WITH MEALS (MAY MAKE DROWSY) Chelsey Irizarry LPN July 15, 2024 8:13 AM documented in this encounter [facility] 07-15-2024 Telephone encounter Note Prescription Refill Information The patient has been identified by name and date of : Yes Caregiver verified no other encounters exist for this prescription request: Yes Caregiver confirmed with patient/requestor that no other refills are due, in the near future, with this provider at this time: Yes The last office visit in the department: 07/14/24 Does the patient have a future office visit with this provider/department: Yes 08/17/24 Requested Prescriptions Pending Prescriptions Disp Refills gabapentin (NEURONTIN) 400 mg capsule 270 capsule 3 Sig: TAKE 1 CAPSULE THREE TIMES A DAY WITH MEALS (MAY MAKE DROWSY) Chelsey Irizarry LPN July 15, 2024 8:13 AM [facility] 07-14-2024 Note HNO ID: [id number] Author: ANGELIKA WILSON APRN.D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 Service: ? Author Type: Nurse Practitioner Type: Progress Notes Filed: 07/14/2024 15:04 Note Text: CC: Patient presents with: Follow Up: Vertigo, ringing in ena ears HPI Jillian Burrell is a 64 year old female who presents today for ringing in her ears and dizziness. Recording using [employer] software for draft documentation of the visit was discussed with the patient/authorized career services representative; all questions welcomed and answered. Patient/authorized career services representative agreed to proceed Tinnitus: - Bilateral tinnitus described as a constant ringing, similar to post-concert ear ringing. - Present for many years exact duration unknown. Ready to have this evaluated. Floaty Sensation: - Persistent floaty sensation since around New Year, progressively worsening. - Described as an internal sensation of movement, distinct from previous vertigo episodes. - Occurs both when standing and sitting; exacerbated by reclining in a chair. - Denies falls, head trauma, vision changes, headaches, syncope, weakness, numbness, confusion, shortness of breath, palpitations, or chest pain. - Has an upcoming eye appointment. - did have increase in cymbalta around time of symptoms starting but also has been taking old gabapentin and unsure on expiration date. - History of vertigo, previously well-controlled. - Current floaty sensation differs from typical vertigo episodes, which usually require sitting down and are sometimes accompanied by nausea. - Taking meclizine for relief. Depression: - History of depression, previously managed with citalopram. - Recent increase in citalopram dosage to 40 mg in January. - Discontinued citalopram abruptly 3-4 weeks ago due to illness and difficulty refilling the prescription. - Noted increased emotional lability since discontinuation, including episodes of sobbing. - Prescription for citalopram was found to be ready at [facility] but was not picked up. - denies thoughts of harming self or others REVIEW OF SYSTEMS See HPI PAST MEDICAL HISTORY Diagnosis Date Depression Generalized anxiety disorder Hiatal hernia Hypothyroid Kidney stones Obstructive sleep apnea syndrome just started Vertigo PAST SURGICAL HISTORY Procedure Laterality Date HEEL-CALCANEUS Bilateral PAST SURGICAL HISTORY OF kidney stone REMOVAL GALLBLADDER 1994 ALLERGIES Augmentin [Amoxicillin-Pot Clavulanate], Codeine, Oxycodone, and Zanaflex [Tizanidine] MEDICATIONS Cyanocobalamin 1,000 mcg TbER Take 1 tablet by mouth once daily. levothyroxine (SYNTHROID) 88 mcg tablet Take 1 tablet by mouth once daily. meloxicam (MOBIC) 15 mg tablet TAKE 1 TABLET DAILY WITH FOOD benzonatate (TESSALON PERLE) 100 mg capsule Take 1 capsule by mouth three times a day as needed. Walker [facility] Walker fluticasone (FLONASE) 50 mcg/actuation nasal spray Use 2 Sprays in each nostril once daily as needed for cold/allergy symptoms. Rinse mouth after use. ergocalciferol 50,000 unit capsule (VITAMIN D2, DRISDOL) Take 1 capsule by mouth one time a week. meclizine (ANTIVERT) 25 mg tab TAKE 1 TABLET THREE TIMES A DAY NEEDED FOR DIZZINESS acetaminophen (TYLENOL) 500 mg tablet Take 1-2 tablets by mouth three times daily. citalopram (CELEXA) 20 mg tablet Take 1 tablet by mouth once daily. gabapentin (NEURONTIN) 400 mg capsule TAKE 1 CAPSULE THREE TIMES A DAY WITH MEALS (MAY MAKE DROWSY) PEG 400-propylene glycol (SYSTANE ULTRA) 0.4-0.3 % ophthalmic solution Use 1 Drop in both eyes twice daily. FAMILY HISTORY Problem Relation Age of Onset Diabetes Mother Glaucoma Mother Macular Degen Mother Diabetes Father No Known Problems Sister Social History Tobacco Use Smoking status: Never Smokeless tobacco: Never Vaping Use Vaping status: Never Used Substance Use Topics Alcohol use: Not Currently Drug use: Never PHYSICAL EXAM BP 126/78 (BP Site: Right Arm, BP Position: Sitting, BP Cuff Size: Large Adult) Pulse 70 Wt (!) 142 kg (313 lb) SpO2 98% BMI 49.02 kg/m? General Appearance: well appearing, in no acute distress, alert Pysch: mood and affect broad and appropriate Eyes: PERRLA, EOM's intact, conjunctiva pink and moist, no icterus, sclera white, non-injected Ears: external ears normal to inspection and palpation, canals clear, Left tympanic membrane normal. , Right tympanic membrane normal Nose/sinus: Nares normal. Septum midline. Mucosa normal. No drainage., No sinus tenderness Neck: Thyroid normal size and symmetric without palpable nodules, Neck supple, No adenopathy Lymph nodes: No cervical lymphadenopathy and No supraclavicular lymphadenopathy Lungs: Lungs clear to auscultation. No wheezing, rhonchi, rales. Heart: RRR without murmur, gallop, or rubs. No ectopy - patient unable to get in chair for full neuro exam - speech normal and mental status intact. Health maintenance revi (more content not included)... [facility] 07-14-2024 History of Presen t illness Narrative CC: Patient presents with: Follow Up: Vertigo, ringing in ena ears HPI Jillian Burrell is a 64 year old female who presents today for ringing in her ears and dizziness. Recording using [employer] software for draft documentation of the visit was discussed with the patient/authorized career services representative; all questions welcomed and answered. Patient/authorized career services representative agreed to proceed Tinnitus: - Bilateral tinnitus described as a constant ringing, similar to post-concert ear ringing. - Present for many years exact duration unknown. Ready to have this evaluated. Floaty Sensation: - Persistent floaty sensation since around New Year, progressively worsening. - Described as an internal sensation of movement, distinct from previous vertigo episodes. - Occurs both when standing and sitting; exacerbated by reclining in a chair. - Denies falls, head trauma, vision changes, headaches, syncope, weakness, numbness, confusion, shortness of breath, palpitations, or chest pain. - Has an upcoming eye appointment. - did have increase in cymbalta around time of symptoms starting but also has been taking old gabapentin and unsure on expiration date. - History of vertigo, previously well-controlled. - Current floaty sensation differs from typical vertigo episodes, which usually require sitting down and are sometimes accompanied by nausea. - Taking meclizine for relief. Depression: - History of depression, previously managed with citalopram. - Recent increase in citalopram dosage to 40 mg in January. - Discontinued citalopram abruptly 3-4 weeks ago due to illness and difficulty refilling the prescription. - Noted increased emotional lability since discontinuation, including episodes of sobbing. - Prescription for citalopram was found to be ready at [facility] but was not picked up. - denies thoughts of harming self or others REVIEW OF SYSTEMS See HPI PAST MEDICAL HISTORY Diagnosis Date Depression Generalized anxiety disorder Hiatal hernia Hypothyroid Kidney stones Obstructive sleep apnea syndrome just started Vertigo PAST SURGICAL HISTORY Procedure Laterality Date HEEL-CALCANEUS Bilateral PAST SURGICAL HISTORY OF kidney stone REMOVAL GALLBLADDER 1994 ALLERGIES Augmentin [Amoxicillin-Pot Clavulanate], Codeine, Oxycodone, and Zanaflex [Tizanidine] MEDICATIONS Cyanocobalamin 1,000 mcg TbER Take 1 tablet by mouth once daily. levothyroxine (SYNTHROID) 88 mcg tablet Take 1 tablet by mouth once daily. meloxicam (MOBIC) 15 mg tablet TAKE 1 TABLET DAILY WITH FOOD benzonatate (TESSALON PERLE) 100 mg capsule Take 1 capsule by mouth three times a day as needed. Walker [facility] [place] Standard Walker fluticasone (FLONASE) 50 mcg/actuation nasal spray Use 2 Sprays in each nostril once daily as needed for cold/allergy symptoms. Rinse mouth after use. ergocalciferol 50,000 unit capsule (VITAMIN D2, DRISDOL) Take 1 capsule by mouth one time a week. meclizine (ANTIVERT) 25 mg tab TAKE 1 TABLET THREE TIMES A DAY NEEDED FOR DIZZINESS acetaminophen (TYLENOL) 500 mg tablet Take 1-2 tablets by mouth three times daily. citalopram (CELEXA) 20 mg tablet Take 1 tablet by mouth once daily. gabapentin (NEURONTIN) 400 mg capsule TAKE 1 CAPSULE THREE TIMES A DAY WITH MEALS (MAY MAKE DROWSY) PEG 400-propylene glycol (SYSTANE ULTRA) 0.4-0.3 % ophthalmic solution Use 1 Drop in both eyes twice daily. FAMILY HISTORY Problem Relation Age of Onset Diabetes Mother Glaucoma Mother Macular Degen Mother Diabetes Father No Known Problems Sister Social History Tobacco Use Smoking status: Never Smokeless tobacco: Never Vaping Use Vaping status: Never Used Substance Use Topics Alcohol use: Not Currently Drug use: Never PHYSICAL EXAM BP 126/78 (BP Site: Right Arm, BP Position: Sitting, BP Cuff Size: Large Adult) Pulse 70 Wt (!) 142 kg (313 lb) SpO2 98% BMI 49.02 kg/m General Appearance: well appearing, in no acute distress, alert Pysch: mood and affect broad and appropriate Eyes: PERRLA, EOM's intact, conjunctiva pink and moist, no icterus, sclera white, non-injected Ears: external ears normal to inspection and palpation, canals clear, Left tympanic membrane normal. , Right tympanic membrane normal Nose/sinus: Nares normal. Septum midline. Mucosa normal. No drainage., No sinus tenderness Neck: Thyroid normal size and symmetric without palpable nodules, Neck supple, No adenopathy Lymph nodes: No cervical lymphadenopathy and No supraclavicular lymphadenopathy Lungs: Lungs clear to auscultation. No wheezing, rhonchi, rales. Heart: RRR without murmur, gallop, or rubs. No ectopy - patient unable to get in chair for full neuro exam - speech normal and mental status intact. Health maintenance reviewed with patient: Cervical Cancer Screening Never done Mammogram Screening Never done Colorectal Cancer Screening Never done DTaP,Tdap,Td Vaccine(1 - Tdap) due on 02/02/2025 RSV Vaccine(1 - Risk 60-74 years 1-dose series) due on 02/02/2025 Hepatitis C Screening due on 02/02/2025 HIV Screening due on 02/02/2025 Shingrix Vaccine(1 of 2) due on 02/02/2025 Covid-19 Vaccine(4 - season) due on 02/02/2025 Pneumococcal Vaccine: 50+(1 of 1 - PCV) due on 02/02/2025 Annual PCP Team Chronic Disease Visit due on 07/14/2025 Diabetes Screening due on 06/29/2027 Lipid Screening due on 02/02/2029 Influenza Vaccine Completed DATA REVIEWED: Most recent labs Assessment/Plan 1. Dizziness (R42) - Experiencing a persistent floaty sensation since the New Year, worsening over time. Describes the sensation as internal movement rather than external. - No associated falls, vision changes, headaches, syncope, weakness, numbness, or confusion. - Examined for potential causes; no significant findings. - Advised to continue meclizine and consider using [id number] Dramamine, but not concurrently. - Will follow up in a few weeks to reassess symptoms. - citalopram decreased back to 20mg once daily dose Patient to see if gabapentin is and if so contact office to get refills. 2. Anxiety and depression (F41.9) - Abrupt discontinuation of citalopram 40 mg approximately 3-4 weeks ago due to illness and pharmacy issues. - Noted increased emotional lability since discontinuation. - Restart citalopram at a reduced dose of 20 mg to minimize potential side effects, including dizziness. - Patient to verify if current gabapentin supply is ; potential impact on symptoms if . - Will monitor response to medication adjustments and follow up in a few weeks. 3. Tinnitus, bilateral (H93.13) - Chronic bilateral tinnitus described as a constant ringing, similar to post-concert ear ringing. - consult to ENT Prescription instructions reviewed with patient as applicable. Potential red flag symptoms discussed with the patient. Reviewed appropriate action plan to take if red flag symptoms occur. Patient agreeable to treatment plan. Angelika Wilson APRN.CNP documented in this encounter [facility] 07-05-2024 Telephone encounter Note Patient notified, feeling better and will come in for repeat lab work. [facility] 07-05-2024 Miscellaneous Notes Patient notified, feeling better and will come in for repeat lab work. ----- Message from Angelika Wilson APRN.CNP sent at 07/05/2024 1:45 PM EDT ----- Kidney function stable and similar to past levels for the past few years. Avoid ibuprofen and other anti-inflammatories. Her sodium is low but could have been because she was ill when I saw her. How is she feeling? I would like to recheck this in a few weeks when she is feeling better to make sure if cam back up. Thank you Angelika Wilson APRN.D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 documented in this encounter [facility] 07-05-2024 Telephone encounter Note ----- Message from Angelika Wilson APRN.D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 sent at 07/05/2024 1:45 PM EDT ----- Kidney function stable and similar to past levels for the past few years. Avoid ibuprofen and other anti-inflammatories. Her sodium is low but could have been because she was ill when I saw her. How is she feeling? I would like to recheck this in a few weeks when she is feeling better to make sure if cam back up. Thank you Angelika Wilson APRN.D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 [facility] 06-28-2024 Note HNO ID: [id number] Author: PHUONG ESCOBEDO Tech Service: ? Author Type: Technologist Type: Progress Notes Filed: 06/28/2024 12:41 Note Text: Radiology Service Progress Note PATIENT NAME: Jillian Burrell DATE OF SERVICE: June 28, 2024 TIME: 12:25 PM PATIENT IDENTITY VERIFICATION COMPLETED USING TWO (2) IDENTIFIERS: Name and Date of confirmed by patient verbally. FALL SCREENING: Has the patient had 2 falls in the last year or 1 fall with injury or currently using an Ambulatory Assistive Device (Walker, Cane, Wheelchair, Crutches, etc.)? No PATIENT GENDER DATA: Assigned female at . status: : No status: NO. PATIENT RELEVANT IMPLANT DATA REVIEWED: Not Applicable PATIENT PRESENTS WITH AN IMPLANTABLE OR ATTACHED ROD PULLER AND COILER: No RADIOLOGY DEPARTMENT: General X-ray: Exam(s) Completed: Chest X-Ray PERIPHERAL IV DATA: Not applicable SIGNED BY: Jac Calvert June 28, 2024 12:25 PM [facility] 06-28-2024 Note HNO ID: [id number] Author: ANGELIKA WILSON APRN.D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 Service: ? Author Type: Nurse Practitioner Type: Progress Notes Filed: 06/28/2024 12:24 Note Text: CC: Patient presents with: Forms: Forms to go into assisted living HPI Jillian Burrell is a 64 year old female who presents today for wanting forms filled out to [facility] but is also ill. Recording using [employer] software for draft documentation of the visit was discussed with the patient/authorized career services representative; all questions welcomed and answered. Patient/authorized career services representative agreed to proceed Cough: - Onset of symptoms approximately one week ago. - Symptoms include cough, fever, chills, sinus pressure, and fatigue. - Denies nausea, emesis, or diarrhea. - Initially suspected allergies or sinus infection. - Productive cough with yellow and brown sputum but now states cough Is dry, deep and she feels it deep in her chest - Denies increased dyspnea, chest pressure, or palpitations. - Using Flonase; taking severe cold and sinus cough syrup with minimal relief. Hypothyroidism: - Taking levothyroxine 88 mcg daily; missed doses last week because she needs a refill - Denies weight changes or energy level fluctuations. B12 Deficiency: - Not taking B12 supplement as ordered; unable to obtain 1,000 mcg dose because its at the store and she needs some one to go to the store for her. Depression and Anxiety: - Well-controlled with citalopram - Denies suicidal or homicidal ideation or changes in appetite. - Experiencing increased sleep due to illness but feels it is fine when she is healthy. No longer taking trazadone as it just made her more tired. Chronic Vertigo: - Managed with meclizine and well controlled at this time Hyperlipidemia: - trying to manage with healthy diet and weight loss. Is unable to exercise due to chronic pain and instability of gait. Hoping to get more active when at assisted living and with use of physical therapy there. - Recent weight loss of 40 lbs. - No chest pain or increased dyspnea. Chronic Pain: - Taking gabapentin for nerve pain. - uses a cane for ambulation and is finally getting her lift chair as she is unable to stand up easily on her own from a normal chair. Uses a walker at night when she goes to the restroom for safety. REVIEW OF SYSTEMS See HPI PAST MEDICAL HISTORY Diagnosis Date Depression Generalized anxiety disorder Hiatal hernia Hypothyroid Kidney stones Obstructive sleep apnea syndrome just started Vertigo PAST SURGICAL HISTORY Procedure Laterality Date HEEL-CALCANEUS Bilateral PAST SURGICAL HISTORY OF kidney stone REMOVAL GALLBLADDER 1994 ALLERGIES Augmentin [Amoxicillin-Pot Clavulanate], Codeine, Oxycodone, and Zanaflex [Tizanidine] MEDICATIONS Cyanocobalamin 1,000 mcg TbER Take 1 tablet by mouth once daily. citalopram (CELEXA) 40 mg tablet Take 1 tablet by mouth once daily. levothyroxine (SYNTHROID) 88 mcg tablet Take 1 tablet by mouth once daily. meloxicam (MOBIC) 15 mg tablet TAKE 1 TABLET DAILY WITH FOOD benzonatate (TESSALON PERLE) 100 mg capsule Take 1 capsule by mouth three times a day as needed. doxycycline hyclate (VIBRAMYCIN) 100 mg capsule Take 1 capsule by mouth two times a day for 10 days. Walker [facility] Standard Walker fluticasone (FLONASE) 50 mcg/actuation nasal spray Use 2 Sprays in each nostril once daily as needed for cold/allergy symptoms. Rinse mouth after use. ergocalciferol 50,000 unit capsule (VITAMIN D2, DRISDOL) Take 1 capsule by mouth one time a week. gabapentin (NEURONTIN) 400 mg capsule TAKE 1 CAPSULE THREE TIMES A DAY WITH MEALS (MAY MAKE DROWSY) meclizine (ANTIVERT) 25 mg tab TAKE 1 TABLET THREE TIMES A DAY NEEDED FOR DIZZINESS PEG 400-propylene glycol (SYSTANE ULTRA) 0.4-0.3 % ophthalmic solution Use 1 Drop in both eyes twice daily. acetaminophen (TYLENOL) 500 mg tablet Take 1-2 tablets by mouth three times daily. FAMILY HISTORY Problem Relation Age of Onset Diabetes Mother Glaucoma Mother Macular Degen Mother Diabetes Father No Known Problems Sister Social History Tobacco Use Smoking status: Never Smokeless tobacco: Never Vaping Use Vaping status: Never Used Substance Use Topics Alcohol use: Not Currently Drug use: Never PHYSICAL EXAM BP 124/88 Pulse 94 Resp 16 Wt (!) 139.7 kg (308 lb) SpO2 99% BMI 48.24 kg/m? General Appearance: well appearing, in no acute distress, alert Eyes: conjunctiva pink and moist, no icterus, sclera white, non-injected Ears: external ears normal to inspection and palpation, canals clear, Left tympanic membrane normal. , Right tympanic membrane normal Nose/sinus: Nares normal. Septum midline. Mucosa normal. No drainage., No sinus tenderness Neck: Thyroid normal size and symmetric without palpable nodules, Neck supple, No adenopathy Lymph nodes: No cervical lymphadenopathy and No sup (more content not included)... [facility] 05-18-2024 Telephone encounter Note Faxed. [facility] 05-18-2024 Miscellaneous Notes Faxed. Printed for review. Nigel Daly MD Received a faxed request for a walker, from [facility] aging [facility] Dis[facility]. Patient would like standard walker Attn: Rohan Flaherty Rozina Adkins LPN May 18, 2024 11:54 AM documented in this encounter [facility] 05-18-2024 Telephone encounter Note Printed for review. Nigel Daly MD [facility] 05-18-2024 Telephone encounter Note Received a faxed request for a walker, from [facility] aging [facility] Dis[facility]. Patient would like standard walker Attn: Rohan Flaherty Rozina Adkins LPN May 18, 2024 11:54 AM [facility] 05-09-2024 Note Patient Outreach (IN TMWS) JILLIAN BURRELL ([id number]) 1960 F Date Time Provider Department 05/09/24 NIGEL CARRILLO During your visit today, we recorded the following information about you: Allergies As of Date: 05/09/2024 Noted Allergy Reaction AUGMENTIN (AMOXICILLIN-POT CLAVUL*06/29/2023 8 - GI Upset Comments: Pt does not want to take medication again as it made her very sick. CODEINE 03/14/2020 9 - Itching OXYCODONE 07/31/2018 9 - Itching ZANAFLEX (TIZANIDINE) 06/29/2023 14 - Other: See Comments Comments: Made pt very anxious Date Reviewed: 02/03/2024 Reviewed by: Lana Bautista LPN - Fully Assessed Visit Diagnosis:Encounter for screening mammogram for breast cancer [Z12.31] Order(s):[facility] [[id number]] Order #: [id number] FUTURE Prescriptions as of 06/09/2024 - Walker [facility] Standard Walker - Cyanocobalamin 1,000 mcg TbER Take 1 tablet by mouth once daily. - meloxicam (MOBIC) 15 mg tablet TAKE 1 TABLET DAILY WITH FOOD - citalopram (CELEXA) 40 mg tablet Take 1 tablet by mouth once daily. - fluticasone (FLONASE) 50 mcg/actuation nasal spray Use 2 Sprays in each nostril once daily as needed for cold/allergy symptoms. Rinse mouth after use. - ergocalciferol 50,000 unit capsule (VITAMIN D2, DRISDOL) Take 1 capsule by mouth one time a week. - traZODone (DESYREL) 50 mg tablet TAKE 1 TABLET DAILY AT BEDTIME - gabapentin (NEURONTIN) 400 mg capsule TAKE 1 CAPSULE THREE TIMES A DAY WITH MEALS (MAY MAKE DROWSY) - levothyroxine (SYNTHROID) 88 mcg tablet Take 1 tablet by mouth once daily. - meclizine (ANTIVERT) 25 mg tab TAKE 1 TABLET THREE TIMES A DAY NEEDED FOR DIZZINESS - PEG 400-propylene glycol (SYSTANE ULTRA) 0.4-0.3 % ophthalmic solution Use 1 Drop in both eyes twice daily. - acetaminophen (TYLENOL) 500 mg tablet Take 1-2 tablets by mouth three times daily. Problem List As Of Date 05/09/2024 Noted Resolved Kidney stones [N20.0] Hypothyroid [E05.90] Depression [F32.A] Vertigo [R42] Obstructive sleep apnea syndrome [G47.33] Hypoxemia associated with sleep [G47.36] 10/17/2020 Anxiety and depression [F41.9, F32.A] 02/03/2024 Encounter Status:Closed by [employer] PRODUSER on 06/09/24 [facility] 05-04-2024 Note HNO ID: [id number] Author: ANGELIKA WILSON APRN.D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 Service: ? Author Type: Nurse Practitioner Type: Progress Notes Filed: 05/04/2024 10:22 Note Text: This Team Access Model visit is a virtual encounter. It required patient-provider interaction for the medical decision making as documented below. Patient agrees to the visit: Yes Patient Location: [place] CC: Patient presents with: Recheck HPI Jillian Burrell is a 64 year old female who is contacted today for a virtual visit. This is an established patient of Dr. Nigel Carrillo MD. Visit today was to review lab work and concerns back from January. Has not started Vit B12 as ordered for Vit B12 deficiency that was thought to be causing her fatigue. Anxiety and depression: Also increased her citalopram for her depression and has had a big improvement in this. Sleep: is described as normal Alcohol use: does not drink any alcohol Drug use: No Appetite: good Suicidal Thoughts: No suicidal ideation, intent or plan CKD: Back in January Creatinine increased to 1.26 and GFR dropped to 48 but had been taking a lot of ibuprofen for a tooth issue. Since this she had her tooth pulled and has no longer been taking. Has not been taking this since. Has been taking her meloxicam though. Has been drinking water to stay hydrated. Considering going into assisted living. Has an aide that comes in to clean her house and laundry once a week and gets [employer] meals to heat up delivered. This is due to her physical limitations. REVIEW OF SYSTEMS See HPI PAST MEDICAL HISTORY Diagnosis Date Depression Generalized anxiety disorder Hiatal hernia Hypothyroid Kidney stones Obstructive sleep apnea syndrome just started Vertigo PAST SURGICAL HISTORY Procedure Laterality Date HEEL-CALCANEUS Bilateral PAST SURGICAL HISTORY OF kidney stone REMOVAL 1994 ALLERGIES Augmentin [Amoxicillin-Pot Clavulanate], Codeine, Oxycodone, and Zanaflex [Tizanidine] MEDICATIONS Cyanocobalamin 1,000 mcg TbER Take 1 tablet by mouth once daily. meloxicam (MOBIC) 15 mg tablet TAKE 1 TABLET DAILY WITH FOOD citalopram (CELEXA) 40 mg tablet Take 1 tablet by mouth once daily. fluticasone (FLONASE) 50 mcg/actuation nasal spray Use 2 Sprays in each nostril once daily as needed for cold/allergy symptoms. Rinse mouth after use. ergocalciferol 50,000 unit capsule (VITAMIN D2, DRISDOL) Take 1 capsule by mouth one time a week. traZODone (DESYREL) 50 mg tablet TAKE 1 TABLET DAILY AT BEDTIME gabapentin (NEURONTIN) 400 mg capsule TAKE 1 CAPSULE THREE TIMES A DAY WITH MEALS (MAY MAKE DROWSY) levothyroxine (SYNTHROID) 88 mcg tablet Take 1 tablet by mouth once daily. meclizine (ANTIVERT) 25 mg tab TAKE 1 TABLET THREE TIMES A DAY NEEDED FOR DIZZINESS PEG 400-propylene glycol (SYSTANE ULTRA) 0.4-0.3 % ophthalmic solution Use 1 Drop in both eyes twice daily. acetaminophen (TYLENOL) 500 mg tablet Take 1-2 tablets by mouth three times daily. FAMILY HISTORY Problem Relation Age of Onset Diabetes Mother Glaucoma Mother Macular Degen Mother Diabetes Father No Known Problems Sister Social History Tobacco Use Smoking status: Never Smokeless tobacco: Never Vaping Use Vaping status: Never Used Substance Use Topics Alcohol use: Not Currently Drug use: Never EXAM: Virtual visit completed using video, limited exam completed. GENERAL: alert and appropriate, in no distress, well-hydrated, well nourished, and happy, smiling, interactive RESPIRATORY: breathing non-labored CHEST: equal chest rise with normal respiratory effort DATA REVIEWED: Most recent labs Cervical Cancer Screening Never done Mammogram Screening Never done Colorectal Cancer Screening Never done DTaP,Tdap,Td Vaccine(1 - Tdap) due on 02/02/2025 RSV Vaccine(1 - Risk 60-74 years 1-dose series) due on 02/02/2025 Hepatitis C Screening due on 02/02/2025 HIV Screening due on 02/02/2025 Shingrix Vaccine(1 of 2) due on 02/02/2025 Covid-19 Vaccine(4 - season) due on 02/02/2025 Pneumococcal Vaccine: 50+(1 of 1 - PCV) due on 02/02/2025 Annual PCP Team Chronic Disease Visit due on 02/02/2025 Diabetes Screening due on 02/02/2027 Lipid Screening due on 02/02/2029 Influenza Vaccine Completed ASSESSMENT/PLAN: 1. Anxiety and depression - ICD9: 300.00, 311, ICD10: F41.9, F32.A (primary diagnosis) Controlled at this time - Reviewed concept of neurochemical imbalance wth depression/anxiety, treatment options and benefits of counseling in combination with medication. Also reviewed benefits of sleep hygeine, diet and exercise - Instructed patient to contact office or [id number] after-hours promptly should condition worsen or any new symptoms appear. - [facility] and after hours crisis line 2. Other fatigue - ICD9: 780.79, ICD10: R53.83 Improving but would even be more improved if the B12 deficiency was (more content not included)... [facility] 05-04-2024 History of Presen t illness Narrative This Team Access Model visit is a virtual encounter. It required patient-provider interaction for the medical decision making as documented below. Patient agrees to the visit: Yes Patient Location: [place] CC: Patient presents with: Recheck HPI Jillian Burrell is a 64 year old female who is contacted today for a virtual visit. This is an established patient of Dr. Nigel Carrillo MD. Visit today was to review lab work and concerns back from January. Has not started Vit B12 as ordered for Vit B12 deficiency that was thought to be causing her fatigue. Anxiety and depression: Also increased her citalopram for her depression and has had a big improvement in this. Sleep: is described as normal Alcohol use: does not drink any alcohol Drug use: No Appetite: good Suicidal Thoughts: No suicidal ideation, intent or plan CKD: Back in January Creatinine increased to 1.26 and GFR dropped to 48 but had been taking a lot of ibuprofen for a tooth issue. Since this she had her tooth pulled and has no longer been taking. Has not been taking this since. Has been taking her meloxicam though. Has been drinking water to stay hydrated. Considering going into assisted living. Has an aide that comes in to clean her house and laundry once a week and gets global meals to heat up delivered. This is due to her physical limitations. REVIEW OF SYSTEMS See HPI PAST MEDICAL HISTORY Diagnosis Date Depression Generalized anxiety disorder Hiatal hernia Hypothyroid Kidney stones Obstructive sleep apnea syndrome just started Vertigo PAST SURGICAL HISTORY Procedure Laterality Date HEEL-CALCANEUS Bilateral PAST SURGICAL HISTORY OF kidney stone REMOVAL GALLBLADDER 1994 ALLERGIES Augmentin [Amoxicillin-Pot Clavulanate], Codeine, Oxycodone, and Zanaflex [Tizanidine] MEDICATIONS Cyanocobalamin 1,000 mcg TbER Take 1 tablet by mouth once daily. meloxicam (MOBIC) 15 mg tablet TAKE 1 TABLET DAILY WITH FOOD citalopram (CELEXA) 40 mg tablet Take 1 tablet by mouth once daily. fluticasone (FLONASE) 50 mcg/actuation nasal spray Use 2 Sprays in each nostril once daily as needed for cold/allergy symptoms. Rinse mouth after use. ergocalciferol 50,000 unit capsule (VITAMIN D2, DRISDOL) Take 1 capsule by mouth one time a week. traZODone (DESYREL) 50 mg tablet TAKE 1 TABLET DAILY AT BEDTIME gabapentin (NEURONTIN) 400 mg capsule TAKE 1 CAPSULE THREE TIMES A DAY WITH MEALS (MAY MAKE DROWSY) levothyroxine (SYNTHROID) 88 mcg tablet Take 1 tablet by mouth once daily. meclizine (ANTIVERT) 25 mg tab TAKE 1 TABLET THREE TIMES A DAY NEEDED FOR DIZZINESS PEG 400-propylene glycol (SYSTANE ULTRA) 0.4-0.3 % ophthalmic solution Use 1 Drop in both eyes twice daily. acetaminophen (TYLENOL) 500 mg tablet Take 1-2 tablets by mouth three times daily. FAMILY HISTORY Problem Relation Age of Onset Diabetes Mother Glaucoma Mother Macular Degen Mother Diabetes Father No Known Problems Sister Social History Tobacco Use Smoking status: Never Smokeless tobacco: Never Vaping Use Vaping status: Never Used Substance Use Topics Alcohol use: Not Currently Drug use: Never EXAM: Virtual visit completed using video, limited exam completed. GENERAL: alert and appropriate, in no distress, well-hydrated, well nourished, and happy, smiling, interactive RESPIRATORY: breathing non-labored CHEST: equal chest rise with normal respiratory effort DATA REVIEWED: Most recent labs Cervical Cancer Screening Never done Mammogram Screening Never done Colorectal Cancer Screening Never done DTaP,Tdap,Td Vaccine(1 - Tdap) due on 02/02/2025 RSV Vaccine(1 - Risk 60-74 years 1-dose series) due on 02/02/2025 Hepatitis C Screening due on 02/02/2025 HIV Screening due on 02/02/2025 Shingrix Vaccine(1 of 2) due on 02/02/2025 Covid-19 Vaccine(4 - season) due on 02/02/2025 Pneumococcal Vaccine: 50+(1 of 1 - PCV) due on 02/02/2025 Annual PCP Team Chronic Disease Visit due on 02/02/2025 Diabetes Screening due on 02/02/2027 Lipid Screening due on 02/02/2029 Influenza Vaccine Completed ASSESSMENT/PLAN: 1. Anxiety and depression - ICD9: 300.00, 311, ICD10: F41.9, F32.A (primary diagnosis) Controlled at this time - Reviewed concept of neurochemical imbalance wth depression/anxiety, treatment options and benefits of counseling in combination with medication. Also reviewed benefits of sleep hygeine, diet and exercise - Instructed patient to contact office or [id number] after-hours promptly should condition worsen or any new symptoms appear. - [facility] and after hours crisis line 2. Other fatigue - ICD9: 780.79, ICD10: R53.83 Improving but would even be more improved if the B12 deficiency was resolved. 3. Vitamin B12 deficiency - ICD9: 266.2, ICD10: E53.8 As above 4. Function kidney decreased - ICD9: 593.9, ICD10: N28.9 Needs to get BMP checked as previously ordered 5. Ambulatory dysfunction - ICD9: 719.7, ICD10: R26.2 Patient to check to see what coverage she has for assisted living. Prescription instructions reviewed with patient as applicable. Potential red flag symptoms discussed with the patient. Reviewed appropriate action plan to take if red flag symptoms occur. Patient agreeable to treatment plan. During this patient visit I have spent approximately 20 minutes in counseling regarding treatment options, medications, test results, and coordinating care. Angelika Wilson APRN.CNP documented in this encounter [facility] 03-08-2024 Telephone encounter Note Form completed and faxed 03/01. Will fax again. Have faxed multiple times as fax numbers provided rings busy. [facility] 03-08-2024 Miscellaneous Notes Form completed and faxed 03/01. Will fax again. Have faxed multiple times as fax numbers provided rings busy. Rigoberto calling again from [employer]. Following up in regards to form for Lift Chair for pt that was faxed on 02/17/2024. Rigoberto states last time they called on the , they were told that form was on provider's desk waiting to be signed. Asking for form to be faxed back as soon as possible to [phone]. Noted the other part of this encounter that pt was to repeat some labwork around 02/28/24. Pt has not been in and done that. It appears she has a lab appt set up for 03/14/24 and has follow up appt with Angelika on 05/04/24. Form received and placed on desk. Rigoberto from [employer] calls and states that they re-sent form for Lift Chair on 02/17/2024. Lemeiah asking if form was received? Asking for form to be faxed back to [phone]. Mamta Spann RN Form placed on desk for review. Please get form and place on my desk. Thank you Angelika Wilson APRN.CNP Patient calls and states that she talked to [employer] about form that needed to be sent out for lift chair. Patient reports that she was told that provider needed to go to [facility] and fill out the paperwork from there. Patient notified of provider instruction regarding ibuprofen and increase of water intake and re check of labs. Patient voices understanding. Mamta Spann RN She needs to get off the ibuprofen, increase water intake and recheck kidney function in 2 weeks. Thank you Angelika Wilson APRN.CNP Patient has been taking ibuprofen for bad tooth for awhile patient states. Patient had tooth extracted on 02/09 so ibuprofen is almost completed. Patient requests daily B- 12 due to weather. Please send to [facility] Kidney function is decreased. Is she taking any other anti-inflammatories outside of her meloxicam? Dehydration like decreasing fluid intake? Also vit b12 is low. She will need a supplement for this. It can be an every day pill or weekly injection. What would she prefer? Thank you Angelika Wilson APRN.CNP documented in this encounter [facility] 03-08-2024 Telephone encounter Note Rigoberto calling again from [employer]. Following up in regards to form for Lift Chair for pt that was faxed on 02/17/2024. Rigoberto states last time they called on the , they were told that form was on provider's desk waiting to be signed. Asking for form to be faxed back as soon as possible to [phone]. Noted the other part of this encounter that pt was to repeat some labwork around 02/28/24. Pt has not been in and done that. It appears she has a lab appt set up for 03/14/24 and has follow up appt with Angelika on 05/04/24. [facility] 03-08-2024 Telephone encounter Note opened in error [facility] 03-08-2024 Miscellaneous Notes opened in error documented in this encounter [facility] 03-01-2024 Telephone encounter Note Medication is not covered due to patient can buy it OTC per medicaid/med[place]are [place] anything available OTC can be purchased by patient Zakia Lopez MA [facility] 03-01-2024 Miscellaneous Notes Medication is not covered due to patient can buy it OTC per medicaid/medicare [place] anything available OTC can be purchased by patient Zakia Lopez MA [employer] appeal dept phoned to let office know, their fax machines are not working, and therefore they are unable to fax the questionnaire, so they called with questions about the appeal. 1) What is the diagnoses: chose from the following: anorexia, fertility or hair loss, sexual dysfunction, weight loss, or other. Unable to go to the next question until answer to first question is received, second question depends on answer to first question. Office can call there PA dept and speak with a career services representative with case # [id number] to answer the questions in the questionnaire. [phone] Appeal completed and faxed for review. This was denied. It says documentation was not rec'd . DOCUMENTION WAS SENT 3 TIMES. WILL CALL THEM. Your request was denied We have denied coverage or payment under your Medicare Part D benefit for the following prescription drug(s) that you or your prescriber requested: B-12 1000 mcg TABLET SA Why did we deny your request? We denied this request under Medicare Part D because: ? We have reviewed your request under the Medicaid portion of your benefit. The information received from your physician does not support approval of this drug because there was not documentation submitted by your provider of two peer-reviewed medical articles citing efficacy and safety of the requested product. The requested medication is not eligible for coverage under Medicare Part D. Therefore, your request is denied Records were sent. Did cancel PA and requested again. Jyothi with [employer] calls to request PA be resubmitted electronically. There system has been down and they are unable to send us any requests. Jyothi reports that they need peer reviewed medical documentation by two providers stating efficacy and safety. Without that documentation medication will not be covered. Case #[id number] . Lydia Castro RN [employer] PA requested. Forwarding to prior auth. Delmi Chamberlain MA Called and spoke with Akbar at [employer]. Akbar states that medication needs a prior authorization. Akbar states that once prior authorization is approved then medication can be resubmitted. Mamta Spann RN Please call [employer] and find out what the problem is. Thank you Angelika Wilson APRN.MYA Patient calls and states that [employer] has not sent her the vitamin B-12 prescription. Pharmacy is saying there is something wrong with the script. Patient asking if provider can take a look at what was sent. Please review and advise, Mamta Spann RN documented in this encounter [facility] 02-29-2024 Telephone encounter Note [employer] appeal dept phoned to let office know, their fax machines are not working, and therefore they are unable to fax the questionnaire, so they called with questions about the appeal. 1) What is the diagnoses: chose from the following: anorexia, fertility or hair loss, sexual dysfunction, weight loss, or other. Unable to go to the next question until answer to first question is received, second question depends on answer to first question. Office can call there PA dept and speak with a career services representative with case # [id number] to answer the questions in the questionnaire. [phone] [facility] 02-29-2024 Telephone encounter Note Appeal completed and faxed for review. [facility] 02-29-2024 Telephone encounter Note This was denied. It says documentation was not rec'd . DOCUMENTION WAS SENT 3 TIMES. WILL CALL THEM. Your request was denied We have denied coverage or payment under your Medicare Part D benefit for the following prescription drug(s) that you or your prescriber requested: B-12 1000 mcg TABLET SA Why did we deny your request? We denied this request under Medicare Part D because: ? We have reviewed your request under the Medicaid portion of your benefit. The information received from your physician does not support approval of this drug because there was not documentation submitted by your provider of two peer-reviewed medical articles citing efficacy and safety of the requested product. The requested medication is not eligible for coverage under Medicare Part D. Therefore, your request is denied [facility] 02-28-2024 Telephone encounter Note Records were sent. Did cancel PA and requested again. [facility] 02-28-2024 Telephone encounter Note Jyothi with [facility] calls to request PA be resubmitted electronically. There system has been down and they are unable to send us any requests. Jyothi reports that they need peer reviewed medical documentation by two providers stating efficacy and safety. Without that documentation medication will not be covered. Case #[id number] . Lydia Castro RN [facility] 02-28-2024 Telephone encounter Note Valentine ONEILL requested. [facility] 02-28-2024 Telephone encounter Note Forwarding to prior auth. Delmi Chamberlain MA [facility] 02-28-2024 Telephone encounter Note Called and spoke with Akbar at [employer]. Akbar states that medication needs a prior authorization. Akbar states that once prior authorization is approved then medication can be resubmitted. Mamta Spann RN [facility] 02-28-2024 Telephone encounter Note Please call [facility] and find out what the problem is. Thank you Angelika Wilson APRN.D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 [facility] 02-25-2024 Telephone encounter Note Patient calls and states that [employer] has not sent her the vitamin B-12 prescription. Pharmacy is saying there is something wrong with the script. Patient asking if provider can take a look at what was sent. Please review and advise, Mamta Spann RN [facility] 02-23-2024 Telephone encounter Note Form received and placed on desk. [facility] 02-21-2024 Telephone encounter Note Rigoberto from [employer] calls and states that they re-sent form for Lift Chair on 02/17/2024. Rigoberto asking if form was received? Asking for form to be faxed back to [phone]. Mamta Spann RN [facility] 02-14-2024 Telephone encounter Note Form placed on desk for review. [facility] 02-14-2024 Telephone encounter Note Please get form and place on my desk. Thank you Angelika Wilson APRN.CNP [facility] 02-14-2024 Telephone encounter Note Patient calls and states that she talked to [employer] about form that needed to be sent out for lift chair. Patient reports that she was told that provider needed to go to [facility] and fill out the paperwork from there. Patient notified of provider instruction regarding ibuprofen and increase of water intake and re check of labs. Patient voices understanding. Mamta Spann RN [facility] 02-14-2024 Telephone encounter Note She needs to get off the ibuprofen, increase water intake and recheck kidney function in 2 weeks. Thank you Angelika Wilson APRN.CNP [facility] 02-14-2024 Telephone encounter Note Patient has been taking ibuprofen for bad tooth for awhile patient states. Patient had tooth extracted on 02/09 so ibuprofen is almost completed. Patient requests daily B- 12 due to weather. Please send to [facility] 02-14-2024 Telephone encounter Note Kidney function is decreased. Is she taking any other anti-inflammatories outside of her meloxicam? Dehydration like decreasing fluid intake? Also vit b12 is low. She will need a supplement for this. It can be an every day pill or weekly injection. What would she prefer? Thank you Angelika Wilson APRN.MYA [facility] 02-03-2024 Note HNO ID: [id number] Author: ANGELIKA WILSON APRN.MYA Service: ? Author Type: Nurse Practitioner Type: Progress Notes Filed: 02/03/2024 10:51 Note Text: CC: Patient presents with: Follow Up: needs lift chair, states lift chair order needs reworded HPI Jillian Burrell is a 63 year old female who presents today for requesting order for lift chair. Requesting lift chair: Uses a cane for walking but uses long distance a wheelchair. Has difficulty getting out of regular chairs and requires scooting forward to get up. This is concerning because she lives alone. Has a health aide that comes twice a day and gets meals delivered. Has not had any falls because once she is standing at home she is able to get around well with cane. The problem is the getting up from the chair. Has this difficulty and leg weakness due to her lumbar and sacral arthritis. Had been seeing pain mgmt earlier this year and was going to get steroid injections but this was put on hold due to dental infection. Never followed back up but is getting tooth removed next month and would like to get the injections afterwards. Also completed physical therapy at home earlier this year and continues to do home exercises as supplied by the therapists. Also has lost a large amount of weight due to diet changes and has not had any improvement. Depression anxiety and Insomnia: Reports depression out of control. Crying often with little interest in doing things and seems to want to sleep more often. Alcohol use: does not drink any alcohol Drug use: No Appetite: good Suicidal Thoughts: No suicidal ideation, intent or plan Hypothyroidism: Taking medication as ordered but still with ongoing fatigue. Denies fever chills, shortness of breath, chest pain, edema, injury, new weakness, loss of sensation, or other new concern. REVIEW OF SYSTEMS See HPI PAST MEDICAL HISTORY Diagnosis Date Depression Generalized anxiety disorder Hiatal hernia Hypothyroid Kidney stones Obstructive sleep apnea syndrome just started Vertigo PAST SURGICAL HISTORY Procedure Laterality Date HEEL-CALCANEUS Bilateral PAST SURGICAL HISTORY OF kidney stone REMOVAL GALLBLADDER 1994 ALLERGIES Augmentin [Amoxicillin-Pot Clavulanate], Codeine, Oxycodone, and Zanaflex [Tizanidine] MEDICATIONS meloxicam (MOBIC) 15 mg tablet TAKE 1 TABLET DAILY WITH FOOD citalopram (CELEXA) 40 mg tablet Take 1 tablet by mouth once daily. fluticasone (FLONASE) 50 mcg/actuation nasal spray Use 2 Sprays in each nostril once daily as needed for cold/allergy symptoms. Rinse mouth after use. ergocalciferol 50,000 unit capsule (VITAMIN D2, DRISDOL) Take 1 capsule by mouth one time a week. traZODone (DESYREL) 50 mg tablet TAKE 1 TABLET DAILY AT BEDTIME gabapentin (NEURONTIN) 400 mg capsule TAKE 1 CAPSULE THREE TIMES A DAY WITH MEALS (MAY MAKE DROWSY) levothyroxine (SYNTHROID) 88 mcg tablet Take 1 tablet by mouth once daily. meclizine (ANTIVERT) 25 mg tab TAKE 1 TABLET THREE TIMES A DAY NEEDED FOR DIZZINESS PEG 400-propylene glycol (SYSTANE ULTRA) 0.4-0.3 % ophthalmic solution Use 1 Drop in both eyes twice daily. acetaminophen (TYLENOL) 500 mg tablet Take 1-2 tablets by mouth three times daily. FAMILY HISTORY Problem Relation Age of Onset Diabetes Mother Glaucoma Mother Macular Degen Mother Diabetes Father No Known Problems Sister Social History Tobacco Use Smoking status: Never Smokeless tobacco: Never Vaping Use Vaping status: Never Used Substance Use Topics Alcohol use: Not Currently Drug use: Never PHYSICAL EXAM BP 112/72 (BP Site: Left Arm, BP Position: Sitting, BP Cuff Size: Large Adult) Pulse 85 Temp 36.1 ?C (96.9 ?F) Resp 22 Ht 170.2 cm (5' 7) Wt (!) 139.3 kg (307 lb) SpO2 97% BMI 48.08 kg/m? General Appearance: well appearing, in no acute distress, alert Eyes: conjunctiva pink and moist, no icterus, sclera white, non-injected Neck: Thyroid difficult to palpate due to neck circumference, Neck supple, No adenopathy Lymph nodes: No cervical lymphadenopathy and No supraclavicular lymphadenopathy Lungs: Lungs clear to auscultation. No wheezing, rhonchi, rales. Heart: RRR without murmur, gallop, or rubs. No ectopy Health maintenance reviewed with patient: Anxiety Screening Never done Cervical Cancer Screening Never done Mammogram Screening Never done Colorectal Cancer Screening Never done DTaP,Tdap,Td Vaccine(1 - Tdap) due on 02/02/2025 RSV Vaccine(1 - Risk 60-74 years 1-dose series) due on 02/02/2025 Hepatitis C Screening due on 02/02/2025 HIV Screening due on 02/02/2025 Shingrix Vaccine(1 of 2) due on 02/02/2025 Covid-19 Vaccine( - season) due on 02/02/2025 Pneumococcal Vaccine: 50+(1 of 1 - PCV) due on 02/02/2025 Annual PCP Team Chronic Disease Visit due on 02/02/2025 Diabetes Screening due on 06/02/2026 Lipid Screening due on 11/13/2027 Influenza Vaccine Completed DATA REVIEWE (more content not included)... [facility] 02-03-2024 History of Presen t illness Narrative CC: Patient presents with: Follow Up: needs lift chair, states lift chair order needs reworded HPI Jillian Burrell is a 63 year old female who presents today for requesting order for lift chair. Requesting lift chair: Uses a cane for walking but uses long distance a wheelchair. Has difficulty getting out of regular chairs and requires scooting forward to get up. This is concerning because she lives alone. Has a health aide that comes twice a day and gets meals delivered. Has not had any falls because once she is standing at home she is able to get around well with cane. The problem is the getting up from the chair. Has this difficulty and leg weakness due to her lumbar and sacral arthritis. Had been seeing pain mgmt earlier this year and was going to get steroid injections but this was put on hold due to dental infection. Never followed back up but is getting tooth removed next month and would like to get the injections afterwards. Also completed physical therapy at home earlier this year and continues to do home exercises as supplied by the therapists. Also has lost a large amount of weight due to diet changes and has not had any improvement. Depression anxiety and Insomnia: Reports depression out of control. Crying often with little interest in doing things and seems to want to sleep more often. Alcohol use: does not drink any alcohol Drug use: No Appetite: good Suicidal Thoughts: No suicidal ideation, intent or plan Hypothyroidism: Taking medication as ordered but still with ongoing fatigue. Denies fever chills, shortness of breath, chest pain, edema, injury, new weakness, loss of sensation, or other new concern. REVIEW OF SYSTEMS See HPI PAST MEDICAL HISTORY Diagnosis Date Depression Generalized anxiety disorder Hiatal hernia Hypothyroid Kidney stones Obstructive sleep apnea syndrome just started Vertigo PAST SURGICAL HISTORY Procedure Laterality Date HEEL-CALCANEUS Bilateral PAST SURGICAL HISTORY OF kidney stone REMOVAL GALLBLADDER 1994 ALLERGIES Augmentin [Amoxicillin-Pot Clavulanate], Codeine, Oxycodone, and Zanaflex [Tizanidine] MEDICATIONS meloxicam (MOBIC) 15 mg tablet TAKE 1 TABLET DAILY WITH FOOD citalopram (CELEXA) 40 mg tablet Take 1 tablet by mouth once daily. fluticasone (FLONASE) 50 mcg/actuation nasal spray Use 2 Sprays in each nostril once daily as needed for cold/allergy symptoms. Rinse mouth after use. ergocalciferol 50,000 unit capsule (VITAMIN D2, DRISDOL) Take 1 capsule by mouth one time a week. traZODone (DESYREL) 50 mg tablet TAKE 1 TABLET DAILY AT BEDTIME gabapentin (NEURONTIN) 400 mg capsule TAKE 1 CAPSULE THREE TIMES A DAY WITH MEALS (MAY MAKE DROWSY) levothyroxine (SYNTHROID) 88 mcg tablet Take 1 tablet by mouth once daily. meclizine (ANTIVERT) 25 mg tab TAKE 1 TABLET THREE TIMES A DAY NEEDED FOR DIZZINESS PEG 400-propylene glycol (SYSTANE ULTRA) 0.4-0.3 % ophthalmic solution Use 1 Drop in both eyes twice daily. acetaminophen (TYLENOL) 500 mg tablet Take 1-2 tablets by mouth three times daily. FAMILY HISTORY Problem Relation Age of Onset Diabetes Mother Glaucoma Mother Macular Degen Mother Diabetes Father No Known Problems Sister Social History Tobacco Use Smoking status: Never Smokeless tobacco: Never Vaping Use Vaping status: Never Used Substance Use Topics Alcohol use: Not Currently Drug use: Never PHYSICAL EXAM BP 112/72 (BP Site: Left Arm, BP Position: Sitting, BP Cuff Size: Large Adult) Pulse 85 Temp 36.1 C (96.9 F) Resp 22 Ht 170.2 cm (5' 7) Wt (!) 139.3 kg (307 lb) SpO2 97% BMI 48.08 kg/m General Appearance: well appearing, in no acute distress, alert Eyes: conjunctiva pink and moist, no icterus, sclera white, non-injected Neck: Thyroid difficult to palpate due to neck circumference, Neck supple, No adenopathy Lymph nodes: No cervical lymphadenopathy and No supraclavicular lymphadenopathy Lungs: Lungs clear to auscultation. No wheezing, rhonchi, rales. Heart: RRR without murmur, gallop, or rubs. No ectopy Health maintenance reviewed with patient: Anxiety Screening Never done Cervical Cancer Screening Never done Mammogram Screening Never done Colorectal Cancer Screening Never done DTaP,Tdap,Td Vaccine(1 - Tdap) due on 02/02/2025 RSV Vaccine(1 - Risk 60-74 years 1-dose series) due on 02/02/2025 Hepatitis C Screening due on 02/02/2025 HIV Screening due on 02/02/2025 Shingrix Vaccine(1 of 2) due on 02/02/2025 Covid-19 Vaccine(4 - season) due on 02/02/2025 Pneumococcal Vaccine: 50+(1 of 1 - PCV) due on 02/02/2025 Annual PCP Team Chronic Disease Visit due on 02/02/2025 Diabetes Screening due on 06/02/2026 Lipid Screening due on 11/13/2027 Influenza Vaccine Completed DATA REVIEWED: No new labs ASSESSMENT/PLAN: 1. Ambulatory dysfunction - ICD9: 719.7, ICD10: R26.2 (primary diagnosis) Patient would benefit from lift chair as she has difficulty going from sitting to standing, requires ambulatory assistance with cane, and lives alone. Patient to have insurance fax order form to office. 2. Lumbar and sacral arthritis - ICD9: 721.3, ICD10: M47.817 As above 3. Lives alone - ICD9: V60.3, ICD10: Z60.2 See #1 4. Other fatigue - ICD9: 780.79, ICD10: R53.83 Thyroid vs depression, vs other cause. Follow up in 6 weeks. - COMPLETE BLOOD COUNT AND DIFFERENTIAL - COMPREHENSIVE METABOLIC PANEL - VITAMIN B12 - THYROID STIMULATING HORMONE - T3, FREE - T4 FREE/FREE THYROXINE 5. Anxiety and depression - ICD9: 300.00, 311, ICD10: F41.9, F32.A Uncontrolled - increasing citalopram - Reviewed concept of neurochemical imbalance wth depression/anxiety, treatment options and benefits of counseling in combination with medication. Also reviewed benefits of sleep hygeine, diet and exercise - Follow-up in 6 weeks or sooner as needed - Instructed patient to contact office or [id number] after-hours promptly should condition worsen or any new symptoms appear. - [facility] and after hours crisis line 6. Hypothyroid - ICD9: 242.90, ICD10: E05.90 - THYROID STIMULATING HORMONE - T3, FREE - T4 FREE/FREE THYROXINE 7. Encounter for immunization - ICD9: V03.89, ICD10: Z23 - INFLUENZA VACCINE, AGE 6MO-64YR, TRIVALENT (AFLURIA, FLULAVAL, FLUVIRIN, FLUZONE) 8. Lipid screening - ICD9: V77.91, ICD10: Z13.220 - LIPID PANEL BASIC - COMPREHENSIVE METABOLIC PANEL 9. Insomnia, unspecified type - ICD9: 780.52, ICD10: G47.00 Controlled at this time. Prescription instructions reviewed with patient as applicable. Potential red flag symptoms discussed with the patient. Reviewed appropriate action plan to take if red flag symptoms occur. Patient agreeable to treatment plan. Angelika Wilson APRN.CNP documented in this encounter [facility] 12-30-2023 Telephone encounter Note Called and spoke to Claudia at [facility], will refax a new form to be filled out and updated. Patient needs office visit to be re evaluated and assessed. See phone encounter from 12/01/23 Previous form above [facility] desk for future appt. Called and left message for patient to schedule an appointment. Rozina Adkins LPN December 30, 2023 11:39 AM [facility] 12-30-2023 Miscellaneous Notes Called and spoke to Claudia at [facility], will refax a new form to be filled out and updated. Patient needs office visit to be re evaluated and assessed. See phone encounter from 12/01/23 Previous form above [facility] desk for future appt. Called and left message for patient to schedule an appointment. Rozina Adkins LPN December 30, 2023 11:39 AM Buddy returns call and reports that forms were completed previously in June 2023. She reports that forms were sent to PCP office on 06/10/2023 and signed/faxed back on 06/16/2023. She is asking if forms can be located and looked at. Question # 1 and # 3 need to be changed for patient to qualify. Question # 3 needs to say patient is completely incapable of standing from any other seated device. Fax # is [phone] Phone # is [phone] Lydia Castro RN Called [employer] and spoke to office staff, will refax request. Rozina Adkins LPN December 30, 2023 10:28 AM Buddy from [facility] [employer] [facility] calling asking if there has been a faxed received from them for pt? Asking for a return call. documented in this encounter [facility] 12-30-2023 Telephone encounter Note Buddy returns call and reports that forms were completed previously in June 2023. She reports that forms were sent to PCP office on 06/10/2023 and signed/faxed back on 06/16/2023. She is asking if forms can be located and looked at. Question # 1 and # 3 need to be changed for patient to qualify. Question # 3 needs to say patient is completely incapable of standing from any other seated device. Fax # is [phone] Phone # is [phone] Lydia Castro RN [facility] 12-30-2023 Telephone encounter Note Called [employer] and spoke to office staff, will refax request. Rozina Adkins LPN December 30, 2023 10:28 AM [facility] 12-27-2023 Telephone encounter Note Chipeah from [employer] calling asking if there has been a faxed received from them for pt? Asking for a return call. [facility] 12-01-2023 Telephone encounter Note Patient calls back and notified of below. Patient voiced understanding. Patient scheduled to see Angelika tomorrow 12/02/2023. Mamta Spann RN [facility] 12-01-2023 Miscellaneous Notes Patient calls back and notified of below. Patient voiced understanding. Patient scheduled to see Angelika tomorrow 12/02/2023. Mamta Spann RN Yes, I received another order form for this from the supplier. I know nothing of insurance stance on this. If she needs it filled out again, she needs seen. Thank you Angelika Wilson APRN.MYA Pt called and is notified of providers message and instructions. Pt voices understanding, she states she has been seen about this. Last I see about lift chair is message from 06/04/23. Pt states the lift chair was ordered and is sitting in a warehouse somewhere because the insurance backed out. She states last she knew they were fighting her insurance. 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 She said if she needs to she would come in and be seen, but last she knew we were fighting with her insurance. Please call and advise. Anita Kruger RN Received orders for lift chair. Patient needs recent appointment so this can be further discussed and ordered. Thank you Angelika Wilson APRN.CNP documented in this encounter [facility] 12-01-2023 Telephone encounter Note Yes, I received another order form for this from the supplier. I know nothing of insurance stance on this. If she needs it filled out again, she needs seen. Thank you Angelika Wilson APRN.CNP [facility] 12-01-2023 Telephone encounter Note Pt called and is notified of providers message and instructions. Pt voices understanding, she states she has been seen about this. Last I see about lift chair is message from 06/04/23. Pt states the lift chair was ordered and is sitting in a warehouse somewhere because the insurance backed out. She states last she knew they were fighting her insurance. 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 She said if she needs to she would come in and be seen, but last she knew we were fighting with her insurance. Please call and advise. Anita Kruger, RN [facility] 12-01-2023 Telephone encounter Note Received orders for lift chair. Patient needs recent appointment so this can be further discussed and ordered. Thank you Angelika Wilson APRN.MYA [facility] 09-23-2023 Telephone encounter Note Agree with recommendations. Thank you Angelika Wilson APRN.CNP [facility] 09-23-2023 Miscellaneous Notes Agree with recommendations. Thank you Angelika Wilson APRN.D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 Patient calling she thinks she has infected wisdom tooth and dentist will not give her rx since she has not been seen in some time. Advised would need to be seen in office. Patient said she will go to the [facility] for evaluation. documented in this encounter [facility] 09-23-2023 Telephone encounter Note Patient calling she thinks she has infected wisdom tooth and dentist will not give her rx since she has not been seen in some time. Advised would need to be seen in office. Patient said she will go to the [facility] for evaluation. [facility] 08-06-2023 Note HNO ID: [id number] Author: NBA CACERES MD Service: Pain Management Author Type: Physician Type: Operative Report Filed: 08/11/2023 12:20 Note Text: Procedure rescheduled. [facility] 08-06-2023 Note HNO ID: [id number] Author: NBA CACERES MD Service: Pain Management Author Type: Physician Type: H&P Filed: 08/11/2023 12:20 Note Text: Procedure rescheduled [facility] 07-06-2023 Telephone encounter Note Patient would like to reschedule procedure in [place] on August 10 Kishore Victor Sales Planner [address] Dr. Nba Caceres MD / Josefina Abraham CNP [facility] [address] [place] [address] Phone. [phone] / Fax. [phone] [facility] 07-06-2023 Miscellaneous Notes Patient would like to reschedule procedure in [place] on August 10 Kishore Victor [place] to Dr. Nba Caceres MD / Josefina Abraham CNP [facility] [place] [address] [id number] Phone. [phone] / Fax. [phone] Unfortunately, we will need to reschedule. It is not taking the antibiotic that is the issue, but rather why the antibiotic is being prescribed - a possible infection. Nba Caceres III, MD, PRASANNA Patient called in stating she was put on an antibiotic (Penicillin) for a possible tooth infection per her dentist. Patient has not started the antibiotic yet and is wondering if she can have the injection then start on the antibiotic. Routed to Dr Caceres to advise. [facility]ba Caceres MD / Josefina Abraham CNP [facility] [place] [address] [place] [address] Phone. [phone] / Fax. [phone] documented in this encounter [facility] 07-06-2023 Telephone encounter Note Unfortunately, we will need to reschedule. It is not taking the antibiotic that is the issue, but rather why the antibiotic is being prescribed - a possible infection. Nba Caceres III, MD, PRASANNA [facility] Work Phone: 07-06-2023 Telephone encounter Note Patient called in stating she was put on an antibiotic (Penicillin) for a possible tooth infection per her dentist. Patient has not started the antibiotic yet and is wondering if she can have the injection then start on the antibiotic. Routed to Dr Caceres to advise. Patient is scheduled for the procedure on 07/09/2023 in [place] [facility] to Dr. Nba Caceres MD / Josefina Abraham CNP, APRN [facility] [place] [address] [place] [address] Phone. [phone] / Fax. [phone] [facility] 07-02-2023 Note HNO ID: [id number] Author: NBA CACERES MD Service: Pain Management Author Type: Physician Type: Operative Report Filed: 07/08/2023 07:55 Note Text: Procedure cancelled [facility] 07-02-2023 Note HNO ID: [id number] Author: NBA CACERES MD Service: Pain Management Author Type: Physician Type: H&P Filed: 07/08/2023 07:55 Note Text: Procedure cancelled [facility] 06-29-2023 Telephone encounter Note Called and left a detailed voicemail notifying [facility] of providers message. Clinic phone number was left in case she had any questions. Anita Babulski, RN [facility] 06-29-2023 Miscellaneous Notes Called and left a detailed voicemail notifying [facility] of providers message. Clinic phone number was left in case she had any questions. Anita Kruger RN Yes to taking both Yes to taking both Med and allergy list updated Brionna Bolivar APRN.MYA [facility] with [facility] calls to verify pt's medications. 1) Pt is taking duplicate therapy medications: benadryl/meclizine. Ok for pt to continue taking both. 2) Pt is taking duplicate therapy meds: citalopram/trazodone. Ok for pt to continue taking both? 3) Pt stopped taking zanaflex because it made her anxious and she could not sleep. Pt wants this added to allergy list along with augmentin.(Which made her very sick in the past) 4) Pt is not using meloxicam until after teeth are pulled. Pt has been using Advil. 5) Medications pt is currently NOT taking: Nystatin, Sudafed Claritin Gabapentin 300 mg 6) Medications pt IS currently taking: Advil Flonase, prn Sullivan balm patches-prn leg and back pain. Please review and advise. Call [facility] with provider message concerning 1 & 2 and any other message pertaining to medications. Rosana Manley LPN documented in this encounter [facility] 06-29-2023 Telephone encounter Note Yes to taking both Yes to taking both Med and allergy list updated Brionna Bolivar APRN.D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 [facility] 06-29-2023 Telephone encounter Note Delmi with [facility] calls to verify pt's medications. 1) Pt is taking duplicate therapy medications: benadryl/meclizine. Ok for pt to continue taking both. 2) Pt is taking duplicate therapy meds: citalopram/trazodone. Ok for pt to continue taking both? 3) Pt stopped taking zanaflex because it made her anxious and she could not sleep. Pt wants this added to allergy list along with augmentin.(Which made her very sick in the past) 4) Pt is not using meloxicam until after teeth are pulled. Pt has been using Advil. 5) Medications pt is currently NOT taking: Nystatin, Sudafed Claritin Gabapentin 300 mg 6) Medications pt IS currently taking: Advil Flonase, prn Sullivan balm patches-prn leg and back pain. Please review and advise. Call [facility] with provider message concerning 1 & 2 and any other message pertaining to medications. Rosana Manley LPN [facility] 06-28-2023 Telephone encounter Note Noted, agree. [facility] 06-28-2023 Miscellaneous Notes Noted, agree. Tati PT calling from [facility] to report plan of care for patient and PT will visit patient 2 times a week for 4 weeks. PT will work with patient on strengthening, pain management, safety, and falls prevention. No call back needed unless provider has questions. Lydia Castro RN documented in this encounter [facility] 06-28-2023 Telephone encounter Note Tati PT calling from [facility] to report plan of care for patient and PT will visit patient 2 times a week for 4 weeks. PT will work with patient on strengthening, pain management, safety, and falls prevention. No call back needed unless provider has questions. Lydia Castro RN [facility] 06-23-2023 Telephone encounter Note Agree. [facility] 06-23-2023 Miscellaneous Notes Agree. Delmi with [facility] calling to state patient has requested her start of care for services to be tomorrow 06/24/23, and not today. No call back needed if provider is agreeable to this. Emily Javier RN documented in this encounter [facility] 06-23-2023 Telephone encounter Note Delmi with [facility] calling to state patient has requested her start of care for services to be tomorrow 06/24/23, and not today. No call back needed if provider is agreeable to this. Emily Javier RN [facility] 06-17-2023 Telephone encounter Note Kita with [facility] calls to request demographics and OV notes to go with referral received. Faxed to [phone] per request. Lydia Castro RN [facility] 06-17-2023 Miscellaneous Notes Kita with [facility] calls to request demographics and OV notes to go with referral received. Faxed to [phone] per request. Lydia Castro RN documented in this encounter [facility] 06-16-2023 Telephone encounter Note faxed as directed [facility] Work Phone: 06-16-2023 Miscellaneous Notes faxed as directed Please fax request for seat lift as filled out along with my note and recent pain mgmt note. Thank you Angelika Wilson APRN.CNP Left detailed message on Shanon's VM stating she needs to call [facility] and ask them what DME they would like us to send script and let us know. Pt phoned in to request that letter regarding new lift chair be sent to [facility] instead. Maryan Quach June 02, 2023 7:48 PM documented in this encounter [facility] 06-16-2023 Telephone encounter Note Please fax request for seat lift as filled out along with my note and recent pain mgmt note. Thank you Angelika Wilson APRN.CNP [facility] 06-14-2023 Telephone encounter Note [employer] calling said they faxed form on 06/10/2023. Did not see that office received form. They are faxing form again right now to [phone]. [facility] 06-14-2023 Miscellaneous Notes [employer] calling said they faxed form on 06/10/2023. Did not see that office received form. They are faxing form again right now to [phone]. Patient calling to update provider's office that [employer] will be faxing over a form for Angelika Wilson CNP to sign and fax back, for further processing of lift chair request. Emily Javier RN documented in this encounter [facility] 06-14-2023 Telephone encounter Note Protocol recommends call 911. Patient agreeable. Reports she is having chest pressure, feels like something is sitting on her chest, chest feels heavy, and she is having SOB. Reports this is new. Constant for the last week, and getting worse. Reason for Disposition [1] Chest pain lasts > 5 minutes AND [2] described as crushing, pressure-like, or heavy Answer Assessment - Initial Assessment Questions 1. LOCATION: Chest feels heavy /pressure, feels like something sitting on it. Reports this is new. 2. RADIATION: No 3. ONSET: Off / on for a few months, but worse today. 4. PATTERN: Constant for last week only when in recliner (sleeps in a recliner). When up walking around does not feel chest pressure, heaviness, or like something sitting on chest. Chest / lungs feels tight when up walking for the past few days. 5. DURATION: Never goes away. 6. SEVERITY: Mild dull ache 7. CARDIAC RISK FACTORS: Has high cholesterol. Hypothyroidism. High BP. BMI 54.35. EKG in office showed has a heart attack. [facility] did EKG and told her she did not have SD- this was on 4 days ago. 8. PULMONARY RISK FACTORS: No. 9. CAUSE: No idea. Has anxiety at times. Is overweight. 10. OTHER SYMPTOMS: No dizziness. Has SOB- gets very SOB- constant for the past 6 mths. Worse on exertion. Has a cough for a couple years now- because she sits all the time. Has a hard time walking d/t herniated disc in back. 11. : Post menopause. Protocols used: Chest [id number] [facility] 06-14-2023 Miscellaneous Notes Protocol recommends call 911. Patient agreeable. Reports she is having chest pressure, feels like something is sitting on her chest, chest feels heavy, and she is having SOB. Reports this is new. Constant for the last week, and getting worse. Reason for Disposition [1] Chest pain lasts > 5 minutes AND [2] described as crushing, pressure-like, or heavy Answer Assessment - Initial Assessment Questions 1. LOCATION: Chest feels heavy /pressure, feels like something sitting on it. Reports this is new. 2. RADIATION: No 3. ONSET: Off / on for a few months, but worse today. 4. PATTERN: Constant for last week only when in recliner (sleeps in a recliner). When up walking around does not feel chest pressure, heaviness, or like something sitting on chest. Chest / lungs feels tight when up walking for the past few days. 5. DURATION: Never goes away. 6. SEVERITY: Mild dull ache 7. CARDIAC RISK FACTORS: Has high cholesterol. Hypothyroidism. High BP. BMI 54.35. EKG in office showed has a heart attack. [facility] did EKG and told her she did not have SD- this was on 4 days ago. 8. PULMONARY RISK FACTORS: No. 9. CAUSE: No idea. Has anxiety at times. Is overweight. 10. OTHER SYMPTOMS: No dizziness. Has SOB- gets very SOB- constant for the past 6 mths. Worse on exertion. Has a cough for a couple years now- because she sits all the time. Has a hard time walking d/t herniated disc in back. 11. : Post menopause. Protocols used: Chest [id number] documented in this encounter [facility] 06-04-2023 Telephone encounter Note Patient calling to update provider's office that [employer] will be faxing over a form for Angelika Wilson CNP to sign and fax back, for further processing of lift chair request. Emily Javier RN [facility] 06-03-2023 History of Presen t illness Narrative Radiology Service Progress Note PATIENT NAME: Jillian Burrell DATE OF SERVICE: June 03, 2023 TIME: 1:54 PM PATIENT IDENTITY VERIFICATION COMPLETED USING TWO (2) IDENTIFIERS: Name and Date of confirmed by patient verbally. FALL SCREENING: Has the patient had 2 falls in the last year or 1 fall with injury or currently using an Ambulatory Assistive Device (Walker, Cane, Wheelchair, Crutches, etc.)? Yes, Patient High Risk for Falls What interventions were put in place to prevent falls during this visit? Increased Observations by Caregivers PATIENT GENDER DATA: Female. status: : No status: NO. PATIENT RELEVANT IMPLANT DATA REVIEWED: Not Applicable PATIENT PRESENTS WITH AN IMPLANTABLE OR ATTACHED ROD PULLER AND COILER: No RADIOLOGY DEPARTMENT: General X-ray: Exam(s) Completed: Lower Extremity X-Ray(s): Knee, AP / Lat / Tunne / Merchant Right and Wt. Bearing PERIPHERAL IV DATA: Not applicable SIGNED BY: RT Migue(R) June 03, 2023 1:54 PM documented in this encounter [facility] 06-03-2023 Telephone encounter Note Procedure(s) being scheduled:Epidural Steroid Injection - Interlaminar Approach (ILESI) under fluoroscopic guidance MIDLINE at L4-5 1.Are you diabetic No 2. Are you on any blood thinners? No If yes, does it require a hold? No If yes, was approval letter sent? No 3. Are you taking any aspirin? No 4. Are you currently taking any antibiotics? Yes If yes, is it prophylactic or for treatment of an infection? Amoxicillin 4x a day 5. Do you have any allergies to latex? No 6. Do you have any allergies to seafood or shellfish? No 7. Do you have any allergies to x-ray dye? No 8. Did the physician instruct you to take any medication prior to your procedure? No 9. Does this procedure require a driver education road instructor? Yes If yes, has patient been notified that a driver education road instructor is needed and must be present at check in? Yes 10. Were the pre-procedure instructions explained and provided to the patient? Yes 11. Do you have a pacemaker? No 12. Do you have an internal stimulator of any kind? No If yes, please bring the remote with you to your procedure visit. 13. Have you received the COVID-19 Vaccine? No. If yes, date(s) received: N/A (Patient should not receive a procedure including steroids 14 days prior to their first dose of the COVID vaccine. They should not receive any procedure containing steroids in the time frame between their 1st and 2nd doses of the COVID vaccine. They should not receive a procedure containing steroids 14 days after their 2nd dose of the COVID vaccine.) Kishore Victor [facility] 06-03-2023 Miscellaneous Notes Procedure(s) being scheduled:Epidural Steroid Injection - Interlaminar Approach (ILESI) under fluoroscopic guidance MIDLINE at L4-5 1.Are you diabetic No 2. Are you on any blood thinners? No If yes, does it require a hold? No If yes, was approval letter sent? No 3. Are you taking any aspirin? No 4. Are you currently taking any antibiotics? Yes If yes, is it prophylactic or for treatment of an infection? Amoxicillin 4x a day 5. Do you have any allergies to latex? No 6. Do you have any allergies to seafood or shellfish? No 7. Do you have any allergies to x-ray dye? No 8. Did the physician instruct you to take any medication prior to your procedure? No 9. Does this procedure require a driver education road instructor? Yes If yes, has patient been notified that a driver education road instructor is needed and must be present at check in? Yes 10. Were the pre-procedure instructions explained and provided to the patient? Yes 11. Do you have a pacemaker? No 12. Do you have an internal stimulator of any kind? No If yes, please bring the remote with you to your procedure visit. 13. Have you received the COVID-19 Vaccine? No. If yes, date(s) received: N/A (Patient should not receive a procedure including steroids 14 days prior to their first dose of the COVID vaccine. They should not receive any procedure containing steroids in the time frame between their 1st and 2nd doses of the COVID vaccine. They should not receive a procedure containing steroids 14 days after their 2nd dose of the COVID vaccine.) Kishore Victor documented in this encounter [facility] 06-03-2023 Note HNO ID: [id number] Author: TASHA DUKE MA Service: ? Author Type: Crm Marketing Executive Type: Progress Notes Filed: 06/03/2023 12:17 Note Text: Review of Systems Constitutional: Negative for activity change, chills, fever and unexpected weight change. Gastrointestinal: Negative for bowel retention or incontinence Genitourinary: Negative for difficulty urinating. Negative for bladder retention or incontinence Musculoskeletal: Positive for arthralgias, back pain, gait problem, joint swelling, myalgias, neck pain and neck stiffness. Neurological: Positive for numbness. Negative for weakness and headaches. Psychiatric/Behavioral: Positive for dysphoric mood and sleep disturbance. Negative for suicidal ideas. The patient is nervous/anxious. [facility] 06-03-2023 History of Presen t illness Narrative Review of Systems Constitutional: Negative for activity change, chills, fever and unexpected weight change. Gastrointestinal: Negative for bowel retention or incontinence Genitourinary: Negative for difficulty urinating. Negative for bladder retention or incontinence Musculoskeletal: Positive for arthralgias, back pain, gait problem, joint swelling, myalgias, neck pain and neck stiffness. Neurological: Positive for numbness. Negative for weakness and headaches. Psychiatric/Behavioral: Positive for dysphoric mood and sleep disturbance. Negative for suicidal ideas. The patient is nervous/anxious. Images from the original note were not included. [facility] Today's Date: 06/03/2023 Name: Jillian Burrell : 1960 Purpose: New Patient Consultation Chief complaint: Low back pain Referring Clinician: Angelika Wilson APRN.D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 Pertinent Past Medical History: FREEMAN, Hypothyroid, MDD, Vertigo , morbid obesity Pertinent Past Surgeries: Heel-calcaneus (Bilateral), History of Present Illness (HPI): 06/03/2023 - Initial HPI (Obtained by Nba Caceres M.D.). DURATION AND ONSET: The pain complaint has been present for approximately 5 years. The pain had a gradual onset. The mechanism of injury is unknown. She has had prior x-rays showing generalized arthritis in her low back. She had a fall remotely and fractured her tailbone. The pain has slowly worsened over time, she has been using a straight cane for community distances. More than 3 years ago, saw a doctor in our practice, recommended PT and exercises, topical medications. RED FLAG SYMPTOMS: denies red flags. PAIN DESCRIPTION: Timing: Constant Character: Aching, Burning Primary Location: axial low back Radiation: bilateral proximal lateral thighs Exacerbating factors: Standing, Walking Relieving factors: Sitting, Lying Down Interferes with: physical activity and walking Current Pain Medications: Neuropathics: Gabapentin 400mg BID - makes drowsy, recently increased from qHS to BID NSAIDS: Renal disease - discontinued Mobic Muscle Relaxants: Topicals: Other Prescription or OTC Pain Medications: Tylenol 500mg, CPAP/BIPAP Opioids (when applicable): Anti-depressants or Mood-Stabilizers: Celexa 20mg, Trazodone 50mg Anti-Coagulants: None Therapies Attended (Current or Most Recent): No Current Therapies 04/04/2020 06/03/2023 AG SPINE COMBINATION Questionnaire GREENLIGHT GREENLIGHT Completed Date 04/04/2020 06/03/2023 Questionnaire Opiod Risk Tool Opiod Risk Tool Completed Date 04/04/2020 06/03/2023 Comments 0 - Low Risk Greenlight Questionnaire GREENLIGHT Completed Date 06/03/2023 Opioid Risk Tool Opiod Risk Tool Date Completed 06/03/2023 Comments 0 - Low Risk LATOYA-7 Anxiety Score 2 Completed Date 06/03/2023 PHQ9P Score 9 Completed Date 06/03/2023 (All drug screens are appropriate unless indicated otherwise) Treatment History: PAIN PROCEDURES: DATE PROCEDURE IMPROVEMENT No interventional pain management procedures performed prior to being evaluated at this practice. MEDICATIONS Taken TO DATE (for the chief complaint(s)): Neuropathics: Neurontin (Gabapentin) NSAIDS: Mobic (Meloxicam) Muscle Relaxants: Flexeril (Cyclobenzaprine), Zanaflex (Tizanidine) Topicals: Voltaren (Gel) Other Prescription or OTC Pain Medications: Tylenol (Acetaminophen) Opioids: Hydrocodone (eg Machias) Compliance: PDMP website checked and validated on 06/03/2023 by Nba Caceres MD All prescriptions have been APPROPRIATELY filled. No suspicious activity was identified. Neurontin 400mg TID (PCP - current) 04/04/2020 06/03/2023 AG SPINE COMBINATION Questionnaire GREENLIGHT GREENLIGHT Completed Date 04/04/2020 06/03/2023 Questionnaire Opiod Risk Tool Opiod Risk Tool Completed Date 04/04/2020 06/03/2023 Comments 0 - Low Risk (All drug screens are appropriate unless indicated otherwise) Risk Assessment: LATOYA-7: 10/08/2020 12/15/2020 06/03/2023 LATOYA - 7 SCORES Score 3 6 2 (0-4) minimal anxiety, (5-9) mild anxiety, (10-14) moderate anxiety, (15-21) severe anxiety PHQ-9: 12/26/2021 11/20/2022 06/03/2023 PHQ-9 Score 15 13 9 (0-4) minimal depression, (5-9) mild depression, (10-14) moderate depression, (15-19) moderately severe depression, (20-27) severe depression Opioid Risk Tool: Family History of Substance Abuse: 0 - No Personal History of Substance Abuse: 0 - No Age between 16-45: 0 - No History of Pre-Adolescence Sexual Abuse: 0 - No Psychological Disease: 0 - No ADD/ADHD/OCD/Bipolar/Schizophren ia: No Risk Total: 0 Total Score Risk Category: Low Risk 0-3 (0-3, low risk or no risk; 4-7, moderate risk, 8+, high risk) Diagnostic Studies: Relevant Imaging: MRI Spine Report No resulted procedures found. MRI Lumbar 08/2020 X-ray Lumbar / Bilat Hip / Pelvis 03/2020 LUMBAR SPINE: Disc space narrowing at multiple levels severe L5-S1 level. Stents tubes and severe degenerative changes in the posterior elements. Mild LEFT convex rotoscoliosis.. Loss of the normal lordotic curvature No fractures or dislocations are seen. PELVIS AND Both hips : Pelvis: No fractures or dislocations are seen. Bone density appears well preserved. Sacroiliac joints are patent Hip joints are well preserved. Right hip: No fractures or dislocations are seen. Left hip: No fractures or dislocations are seen. IMPRESSION: Degenerative changes as discussed Electrodiagnostic Study (EMG): None Recent Labs: Creatinine Date Value Ref Range Status 12/21/2022 1.12 (H) 0.58 - 0.96 mg/dL Final No results found for: EGFR No results found for: PCGLUCOSE Current Medications, Past Medical History, Past Surgical History, Family History, Social History and Review of Systems: On today's date, noted above, I have confirmed and edited as necessary, the PFSH and ROS obtained by others. Physical Exam: 06/03/23 1122 Pulse: 69 Resp: 16 SpO2: 96% Neuro-Lower: Neural Tension Signs: Negative slump in Bilateral lower limbs Sensation: intact to light touch in the L2-S2 Bilateral lower limb dermatomes Muscle Tone: Normal and symmetric throughout without clonus Strength: Iliopsoas (L2): 5 Left, 5 Right Quadriceps (L3) 5 Left, 5 Right Anterior Tibialis (L4): 5 Left, 5 Right Extensor Hallucis Longus (L5): 5 Left, 5 Right Gastrocnemius (S1): 5 Left, 5 Right Musculoskeletal-Lower: Inspection: Symmetric without atrophy Palpation: Lumbar Paraspinal Tenderness: Concordant on Bilateral side(s) Paraspinal Spasms: None PSIS Tenderness: None on Bilateral side(s) Greater Trochanter Tenderness: Concordant on Bilateral side(s) Spine Range of Motion: Flexion: Decreased 25% Without end range pain Extension: Decreased 25% Without end range pain Combination extension and rotation pain: None Hip Range of Motion: Right Hip: Internal Rotation: Normal; Pain at end range: None External Rotation: Normal; Pain at end range: None Left Hip: Internal Rotation: Normal; Pain at end range: None External Rotation: Normal; Pain at end range: None Sacroiliac Maneuvers: Deferred Bilateral Knee(s): Inspection: No edema Palpation: Concordant tenderness to palpation of medial joint lines. Range of Motion: Normal and non-painful active extension and flexion No crepitus Special Tests: No ligamentous laxity with Anterior drawer, Posterior drawer, [place], Varus stress, Valgus stress IMPRESSION: 63 year old female presents with complaint(s) of axial low back pain, facet-mediated, also with irritation of the gluteal-trochanteric bursal complex. Bilateral knee pain, likely mild osteoarthritis. Diagnoses: (M47.817) Lumbar and sacral arthritis (R26.2) Ambulatory dysfunction (M54.40, G89.29) Chronic bilateral low back pain with sciatica, sciatica laterality unspecified PLAN: Jillian Burrell would benefit from the following to reach personal goals for decreasing pain, improving function and work participation, and/or improving quality of life: Medications: No Changes - Continue Current Medications Interventional Procedures: Epidural Steroid Injection - Interlaminar Approach (ILESI) under fluoroscopic guidance MIDLINE at L4-5 Primary Health Organisation Manager Needed: Epidural - YES Anticoagulant - Hold Needed: N/A (Not currently on Anticoagulants) Anticoagulant - Currently Taking: None Allergies (relevant): None Scheduling - Mobility (Can Patient independently transfer on/off an OR or Procedure table?): NO (Please do not schedule at [place] or [place] [facility]) Scheduling - Additional Info: None Studies: None Functional Denominational: NONE - PT offered, declined Referrals: No additional considerations at present - consider Orthopedic referral from PCP based upon imaging Follow-up: 2 months Depending on response to the above plan, consider: MBB/RFA; updated MRI and PT if needed Bilateral trochanteric bursal injections under fluoroscopic guidance Compliance and Clinic Policies Reviewed and/or Discussed Today: None Attribution: In addition to reviewing the information noted above, some elements copied from my most recent clinical note(s), including the physical exam (completed in entirety today), and the impression and plan sections, have been updated where appropriate. All reflect current medical decision making from today's date. Nba Caceres MD Pain Management [facility] documented in this encounter [facility] 06-03-2023 Telephone encounter Note Left detailed message on Shanon's VM stating she needs to call [employer] and ask them what DME they would like us to send script and let us know. [facility] 06-03-2023 Note HNO ID: [id number] Author: NBA CACERES MD Service: ? Author Type: Physician Type: Progress Notes Filed: 06/03/2023 12:17 Note Text: [facility] Today's Date: 06/03/2023 Name: Jillian Burrell : 1960 Purpose: New Patient Consultation Chief complaint: Low back pain Referring Clinician: Angelika Wilson APRN.D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 Pertinent Past Medical History: FREEMAN, Hypothyroid, MDD, Vertigo , morbid obesity Pertinent Past Surgeries: Heel-calcaneus (Bilateral), History of Present Illness (HPI): 06/03/2023 - Initial HPI (Obtained by Nba Caceres M.D.). DURATION AND ONSET: The pain complaint has been present for approximately 5 years. The pain had a gradual onset. The mechanism of injury is unknown. She has had prior x-rays showing generalized arthritis in her low back. She had a fall remotely and fractured her tailbone. The pain has slowly worsened over time, she has been using a straight cane for community distances. More than 3 years ago, saw a doctor in our practice, recommended PT and exercises, topical medications. RED FLAG SYMPTOMS: denies red flags. PAIN DESCRIPTION: Timing: Constant Character: Aching, Burning Primary Location: axial low back Radiation: bilateral proximal lateral thighs Exacerbating factors: Standing, Walking Relieving factors: Sitting, Lying Down Interferes with: physical activity and walking Current Pain Medications: Neuropathics: Gabapentin 400mg BID - makes drowsy, recently increased from qHS to BID NSAIDS: Renal disease - discontinued Mobic Muscle Relaxants: Topicals: Other Prescription or OTC Pain Medications: Tylenol 500mg, CPAP/BIPAP Opioids (when applicable): Anti-depressants or Mood-Stabilizers: Celexa 20mg, Trazodone 50mg Anti-Coagulants: None Therapies Attended (Current or Most Recent): No Current Therapies 04/04/2020 06/03/2023 AG SPINE COMBINATION Questionnaire GREENLIGHT GREENLIGHT Completed Date 04/04/2020 06/03/2023 Questionnaire Opiod Risk Tool Opiod Risk Tool Completed Date 04/04/2020 06/03/2023 Comments 0 - Low Risk Greenlight Questionnaire GREENLIGHT Completed Date 06/03/2023 Opioid Risk Tool Opiod Risk Tool Date Completed 06/03/2023 Comments 0 - Low Risk LATOYA-7 Anxiety Score 2 Completed Date 06/03/2023 PHQ9P Score 9 Completed Date 06/03/2023 (All drug screens are appropriate unless indicated otherwise) Treatment History: PAIN PROCEDURES: DATE PROCEDURE IMPROVEMENT No interventional pain management procedures performed prior to being evaluated at this practice. MEDICATIONS Taken TO DATE (for the chief complaint(s)): Neuropathics: Neurontin (Gabapentin) NSAIDS: Mobic (Meloxicam) Muscle Relaxants: Flexeril (Cyclobenzaprine), Zanaflex (Tizanidine) Topicals: Voltaren (Gel) Other Prescription or OTC Pain Medications: Tylenol (Acetaminophen) Opioids: Hydrocodone (eg Machias) Compliance: PDMP website checked and validated on 06/03/2023 by Nba Caceres MD All prescriptions have been APPROPRIATELY filled. No suspicious activity was identified. Neurontin 400mg TID (PCP - current) 04/04/2020 06/03/2023 AG SPINE COMBINATION Questionnaire GREENLIGHT GREENLIGHT Completed Date 04/04/2020 06/03/2023 Questionnaire Opiod Risk Tool Opiod Risk Tool Completed Date 04/04/2020 06/03/2023 Comments 0 - Low Risk (All drug screens are appropriate unless indicated otherwise) Risk Assessment: LATOYA-7: 10/08/2020 12/15/2020 06/03/2023 LATOYA - 7 SCORES Score 3 6 2 (0-4) minimal anxiety, (5-9) mild anxiety, (10-14) moderate anxiety, (15-21) severe anxiety PHQ-9: 12/26/2021 11/20/2022 06/03/2023 PHQ-9 Score 15 13 9 (0-4) minimal depression, (5-9) mild depression, (10-14) moderate depression, (15-19) moderately severe depression, (20-27) severe depression Opioid Risk Tool: Family History of Substance Abuse: 0 - No Personal History of Substance Abuse: 0 - No Age between 16-45: 0 - No History of Pre-Adolescence Sexual Abuse: 0 - No Psychological Disease: 0 - No ADD/ADHD/OCD/Bipolar/Schizophren ia: No Risk Total: 0 Total Score Risk Category: Low Risk 0-3 (0-3, low risk or no risk; 4-7, moderate risk, 8+, high risk) Diagnostic Studies: Relevant Imaging: MRI Spine Report No resulted procedures found. MRI Lumbar 08/2020 X-ray Lumbar / Bilat Hip / Pelvis 03/2020 LUMBAR SPINE: Disc space narrowing at multiple levels severe L5-S1 level. Stents tubes and severe degenerative changes in the posterior elements. Mild LEFT convex rotoscoliosis.. Loss of the normal lordotic curvature No fractures or dislocations are seen. PELVIS AND Both hips : Pelvis: No fractures or dislocations are seen. Bone density appears well preserved. Sacroiliac joints are patent Hip joint (more content not included)... [facility] 06-02-2023 Telephone encounter Note Pt phoned in to request that letter regarding new lift chair be sent to [facility] instead. Maryan Quach June 02, 2023 7:48 PM [facility] 06-02-2023 History of Presen t illness Narrative CC: Patient presents with: Recheck: Face to face for chair lift HPI Jillian Burrell is a 63 year old female who presents today for requesting a home chair lift. Has an electric chair that lifts but was her mothers and is 10 years old and needs a new one. It was ordered previously and medicaid was covering it but it took too long and had to have a new order placed with new face to face for this. Uses this to sleep in and needs the assistance to get up out of the chair as she lives alone. Has chronic hip pain, lumbar sacral arthritis, sciatica, and now acute right knee pain. Everything worsens when she tries to get up out of the chair and utilizes a cane for ambulation. Has home health PT ordered but has not started yet. Has difficulty getting out of the house due to pain and trouble ambulating so needs therapy to come to her. Has had right knee pain for the past month. Sullivan balm patches help to relieve the pain enough to be able to sleep. Denies any recent falls or known injury. Pain is to top medial side of knee and described as a sharp pain that intensifies as she is getting up from sitting position or starting to sit down. Denies any edema, redness, fever, new weakness, or loss of sensation. REVIEW OF SYSTEMS See HPI PAST MEDICAL HISTORY Diagnosis Date Depression Generalized anxiety disorder Hiatal hernia Hypothyroid Kidney stones Obstructive sleep apnea syndrome just started Vertigo PAST SURGICAL HISTORY Procedure Laterality Date HEEL-CALCANEUS Bilateral PAST SURGICAL HISTORY OF kidney stone REMOVAL GALLBLADDER 1994 ALLERGIES Codeine and Oxycodone MEDICATIONS ergocalciferol 50,000 unit capsule (VITAMIN D2, DRISDOL) Take 1 capsule by mouth one time a week. traZODone (DESYREL) 50 mg tablet TAKE 1 TABLET DAILY AT BEDTIME tiZANidine (ZANAFLEX) 4 mg tablet Take 1 tablet by mouth every 8 hours as needed (muscle spasms). pseudoephedrine HCl (SUDAFED ORAL) Take by mouth. gabapentin (NEURONTIN) 400 mg capsule TAKE 1 CAPSULE THREE TIMES A DAY WITH MEALS (MAY MAKE DROWSY) levothyroxine (SYNTHROID) 88 mcg tablet Take 1 tablet by mouth once daily. meloxicam (MOBIC) 15 mg tablet TAKE 1 TABLET DAILY WITH FOOD (Patient not taking: Reported on 03/30/2023) citalopram (CELEXA) 20 mg tablet Take 1 tablet by mouth once daily. meclizine (ANTIVERT) 25 mg tab TAKE 1 TABLET THREE TIMES A DAY NEEDED FOR DIZZINESS nystatin (MYCOSTATIN) ointment APPLY TO THE AFFECTED AREA TWICE A DAY CPAP/BIPAP/OTHER Type .CPAPSettings into a note to see current settings/supplies/DME information. MEDICAL SUPPLY Scooter to help with mobility out side the house loratadine (CLARITIN) 10 mg tablet Take 1 tablet by mouth once daily. (Patient not taking: Reported on 12/21/2022) PEG 400-propylene glycol (SYSTANE ULTRA) 0.4-0.3 % ophthalmic solution Use 1 Drop in both eyes twice daily. gabapentin (NEURONTIN) 300 mg capsule AT BEDTIME acetaminophen (TYLENOL) 500 mg tablet Take 1-2 tablets by mouth three times daily. FAMILY HISTORY Problem Relation Age of Onset Diabetes Mother Glaucoma Mother Macular Degen Mother Diabetes Father No Known Problems Sister Social History Tobacco Use Smoking status: Never Smokeless tobacco: Never Substance Use Topics Alcohol use: Not Currently Drug use: Never PHYSICAL EXAM BP 136/90 Pulse 74 Resp 16 Wt (!) 157.4 kg (347 lb) SpO2 96% BMI 54.35 kg/m General Appearance: well appearing, in no acute distress, alert Pysch: mood and affect broad and appropriate Skin: Skin color, texture, turgor normal for age; Lungs: Lungs clear to auscultation. No wheezing, rhonchi, rales. Heart: RRR without murmur, gallop, or rubs. No ectopy Musculoskeletal: Right knee- normal to inspection. Tenderness:none. Flexion:Limitation: No, Pain:No; Extension:Limitation:No, Pain:No. Laxity: No Lower extremities: no edema in LE bilaterally, good distal pulses. Muscle strength- 5/5 lower, bilaterally Health maintenance reviewed with patient: Mammogram Screening Never done DTaP,Tdap,Td Vaccine(1 - Tdap) due on 12/22/2023 Pap Testing due on 12/22/2023 HPV Testing due on 12/22/2023 Colorectal Cancer Screening due on 12/22/2023 RSV Vaccine(1 - 1-dose 60+ series) due on 12/22/2023 Hepatitis C Screening due on 12/22/2023 HIV Screening due on 12/22/2023 Shingrix Vaccine(1 of 2) due on 12/22/2023 Covid-19 Vaccine( season) due on 12/22/2023 Annual PCP Team Chronic Disease Visit due on 03/30/2024 Diabetes Screening due on 12/21/2025 Lipid Screening due on 11/13/2027 Influenza Vaccine Completed DATA REVIEWED: No new labs ASSESSMENT/PLAN: 1. Lumbar and sacral arthritis - ICD9: 721.3, ICD10: M47.817 (primary diagnosis) - chronic condition without change. With the pain, ambulation is difficult without cane and needs assistance to get up out of chair. Would benefit greatly with home physical therapy to improve strength, balance, and decrease risk of falls. - [facility] - CONSULT TO PAIN MGT - SEAT LIFT MECHANISM COMBL 2. Ambulatory dysfunction - ICD9: 719.7, ICD10: R26.2 As above - [facility] - CONSULT TO PAIN MGT - SEAT LIFT MECHANISM COMBL 3. Chronic bilateral low back pain with sciatica, sciatica laterality unspecified - ICD9: 724.2, 724.3, 338.29, ICD10: M54.40, G89.29 See #1 - [facility] - CONSULT TO PAIN MGT - SEAT LIFT MECHANISM COMBL 4. Acute pain of right knee - ICD9: 719.46, ICD10: M25.561 Assessment normal but with patients concern and already difficulty with ambulation will xray and get in with physical therapy - XR KNEE GENERAL 4V AP BOTH/PA BOTH/LAT/MERC RIGHT - [facility] Prescription instructions reviewed with patient as applicable. Potential red flag symptoms discussed with the patient. Reviewed appropriate action plan to take if red flag symptoms occur. Patient agreeable to treatment plan. Angelika Wilson APRN.CNP documented in this encounter [facility] 05-31-2023 Telephone encounter Note Patient has been identified by name and date of : Yes Patient phones for refill(s): Requested Prescriptions Pending Prescriptions Disp Refills ergocalciferol 50,000 unit capsule (VITAMIN D2, DRISDOL) 90 capsule 3 Sig: Take 1 capsule by mouth one time a week. Date of last office visit in primary care: 03/30/2023 Date of next office visit in primary care: 07/02/2023 Please advise. Thank you. Nancy Holcomb LPN. [facility] 05-31-2023 Miscellaneous Notes Patient has been identified by name and date of : Yes Patient phones for refill(s): Requested Prescriptions Pending Prescriptions Disp Refills ergocalciferol 50,000 unit capsule (VITAMIN D2, DRISDOL) 90 capsule 3 Sig: Take 1 capsule by mouth one time a week. Date of last office visit in primary care: 03/30/2023 Date of next office visit in primary care: 07/02/2023 Please advise. Thank you. Nancy Holcomb LPN. Patient has been identified by name and date of : Yes Requested Prescriptions Pending Prescriptions Disp Refills ergocalciferol 50,000 unit capsule (VITAMIN D2, DRISDOL) 90 capsule 3 Sig: Take 1 capsule by mouth one time a week. RX INSTRUCTIONS: Patient aware RX will be sent to [facility]. No need to notify patient. Rachel Palomo documented in this encounter [facility] 05-31-2023 Telephone encounter Note Patient has been identified by name and date of : Yes Requested Prescriptions Pending Prescriptions Disp Refills ergocalciferol 50,000 unit capsule (VITAMIN D2, DRISDOL) 90 capsule 3 Sig: Take 1 capsule by mouth one time a week. RX INSTRUCTIONS: Patient aware RX will be sent to [facility] pharmacy. No need to notify patient. Rachel Palomo [facility] 05-14-2023 Miscellaneous Notes TC to patient who verbalized understanding of below. No available appointment with provider today, offered Wednesday appointment but patient states she prefers to go to . [facility] She will need seen in the office for this or can go to [facility] ,Brionna Bolivar APRN.CNP Shanon is calling Brionna Bolivar APRN.CNP today to request a refill until June when she sees her dentist for toothache Patient is asking for antibiotic , amoxacillin to be sent to [facility] please. Please advise patient of any questions at home phone which has been verified Patient has been identified by name and birthdate. Duration of symptoms: days Person calling: self Call patient at: at home [phone] (home) Was an appointment scheduled: No Closing statement: Symptom Call: Thank you for calling [facility], your call is very important. A nurse will call in approximately 2-4 hours during business hours. If this is an emergency, please contact 911. Alaina Tavares documented in this encounter [facility] 04-21-2023 Miscellaneous Notes Faxed. Form signed. Please fax as requested. Thank you Angelika Wilson APRN.CNP [facility] is faxing an order for incontinent supplies, to Angelika today. Asking if Angelika can sign it and fax the signed order back to her today? . documented in this encounter [facility] 03-30-2023 History of Presen t illness Narrative Images from the original note were not included. CC: Patient presents with: Dental Problem: Requesting abx HPI Jillian Burrell is a 63 year old female who presents today for possible dental infection. She developed pain right lower wisdom tooth a few days ago. Associated with right facial swelling and cold sensitivity. Denies fever, chills, drainage. She has an appointment with dentist on April 11, requesting antibiotic until she can be seen Review of Systems See HPI PAST MEDICAL HISTORY Diagnosis Date Depression Generalized anxiety disorder Hiatal hernia Hypothyroid Kidney stones Obstructive sleep apnea syndrome just started Vertigo PAST SURGICAL HISTORY Procedure Laterality Date HEEL-CALCANEUS Bilateral PAST SURGICAL HISTORY OF kidney stone REMOVAL GALLBLADDER 1994 ALLERGIES Codeine and Oxycodone MEDICATIONS traZODone (DESYREL) 50 mg tablet TAKE 1 TABLET DAILY AT BEDTIME tiZANidine (ZANAFLEX) 4 mg tablet Take 1 tablet by mouth every 8 hours as needed (muscle spasms). pseudoephedrine HCl (SUDAFED ORAL) Take by mouth. gabapentin (NEURONTIN) 400 mg capsule TAKE 1 CAPSULE THREE TIMES A DAY WITH MEALS (MAY MAKE DROWSY) levothyroxine (SYNTHROID) 88 mcg tablet Take 1 tablet by mouth once daily. meloxicam (MOBIC) 15 mg tablet TAKE 1 TABLET DAILY WITH FOOD (Patient not taking: Reported on 03/30/2023) citalopram (CELEXA) 20 mg tablet Take 1 tablet by mouth once daily. meclizine (ANTIVERT) 25 mg tab TAKE 1 TABLET THREE TIMES A DAY NEEDED FOR DIZZINESS nystatin (MYCOSTATIN) ointment APPLY TO THE AFFECTED AREA TWICE A DAY CPAP/BIPAP/OTHER Type .CPAPSettings into a note to see current settings/supplies/DME information. ergocalciferol 50,000 unit capsule (VITAMIN D2, ISDOL) Take 1 capsule by mouth one time a week. MEDICAL SUPPLY Scooter to help with mobility out side the house loratadine (CLARITIN) 10 mg tablet Take 1 tablet by mouth once daily. (Patient not taking: Reported on 12/21/2022) PEG 400-propylene glycol (SYSTANE ULTRA) 0.4-0.3 % ophthalmic solution Use 1 Drop in both eyes twice daily. gabapentin (NEURONTIN) 300 mg capsule AT BEDTIME acetaminophen (TYLENOL) 500 mg tablet Take 1-2 tablets by mouth three times daily. FAMILY HISTORY Problem Relation Age of Onset Diabetes Mother Glaucoma Mother Macular Degen Mother Diabetes Father No Known Problems Sister Social History Tobacco Use Smoking status: Never Smokeless tobacco: Never Substance Use Topics Alcohol use: Not Currently Drug use: Never BP 110/76 Pulse 77 Temp 36.2 C (97.2 F) (Temporal) Resp 20 Wt (!) 157.4 kg (347 lb) SpO2 97% BMI 54.35 kg/m Physical Exam Vitals reviewed. Constitutional: General: She is not in acute distress. Appearance: She is not ill-appearing or toxic-appearing. HENT: Mouth/Throat: Mouth: Mucous membranes are moist. Dentition: Dental caries present. No gingival swelling. Pharynx: Oropharynx is clear. Comments: Minor swelling along lower jaw line on the right Neurological: Mental Status: She is alert. ASSESSMENT/PLAN: 1. Pain, dental - ICD9: 525.9, ICD10: K08.89 Infection vs exposed nerve Start treatment with Amoxicillin x 5 days Follow-up with dentist as scheduled. She will My Chart message me in 3 to 5 days if no improvement or call sooner if worsening Prescription instructions reviewed with patient as applicable. Potential red flag symptoms discussed with the patient. Reviewed appropriate action plan to take if red flag symptoms occur. Patient agreeable to treatment plan. Brionna Bolivar APRN.MYA documented in this encounter [facility] 03-29-2023 Miscellaneous Notes Spoke with pt and information listed below given. Pt verbalizes understanding. Apt has been booked. Coby Murray LPN Tried calling patient, call was lost. Will try again. She needs to be evaluated for this. [facility] is an option if needed. Thank you Angelika Wilson APRN.MYA Patient calling to ask if Dr. Carrillo will prescribe an antibiotic for an abscessed tooth. Her dentist will not prescribe it as they have not seen her before and her appointment with them is not until April. Please call and advise. documented in this encounter [facility] 01-28-2023 History of Presen t illness Narrative This Team Access Model visit is a virtual encounter. It required patient-provider interaction for the medical decision making as documented below. Patient agrees to the visit: Yes Patient Location: [place] CC: Patient presents with: Recheck HPI Jillian Burrell is a 62 year old female who is contacted today for a virtual visit. This is an established patient of Dr. Nigel Carrillo MD. Was seen 6 weeks ago with palpitation and dyspnea on exertion. Has a lot of family heart issues. EKG showing possible inferior infarct age undetermined and ECHO with dilation of aorta. Is scheduled to establish with Dr. Oliveira at [facility] in February. Is currently wearing the heart monitor. Still with. Chronic low back pain with sciatica. Home PT ordered at last visit but has not started yet. Mobic on hold due to kidney function. Asking what else she can take in the mean time. REVIEW OF SYSTEMS General: no fevers, no chills, no night sweats, no recurrent infections, no change in appetite, no change in energy, and no significant changes in weight Respiratory: no cough, no wheezing, no hemoptysis Cardiovascular: no chest pain, no chest pressure, and no swelling PAST MEDICAL HISTORY Diagnosis Date Depression Generalized anxiety disorder Hiatal hernia Hypothyroid Kidney stones Obstructive sleep apnea syndrome just started Vertigo PAST SURGICAL HISTORY Procedure Laterality Date HEEL-CALCANEUS Bilateral PAST SURGICAL HISTORY OF kidney stone REMOVAL GALLBLADDER 1994 ALLERGIES Codeine and Oxycodone MEDICATIONS pseudoephedrine HCl (SUDAFED ORAL) Take by mouth. gabapentin (NEURONTIN) 400 mg capsule TAKE 1 CAPSULE THREE TIMES A DAY WITH MEALS (MAY MAKE DROWSY) levothyroxine (SYNTHROID) 88 mcg tablet Take 1 tablet by mouth once daily. meloxicam (MOBIC) 15 mg tablet TAKE 1 TABLET DAILY WITH FOOD citalopram (CELEXA) 20 mg tablet Take 1 tablet by mouth once daily. meclizine (ANTIVERT) 25 mg tab TAKE 1 TABLET THREE TIMES A DAY NEEDED FOR DIZZINESS nystatin (MYCOSTATIN) ointment APPLY TO THE AFFECTED AREA TWICE A DAY traZODone (DESYREL) 50 mg tablet TAKE 1 TABLET DAILY AT BEDTIME CPAP/BIPAP/OTHER Type .CPAPSettings into a note to see current settings/supplies/DME information. ergocalciferol 50,000 unit capsule (VITAMIN D2, DRISDOL) Take 1 capsule by mouth one time a week. MEDICAL SUPPLY Scooter to help with mobility out side the house loratadine (CLARITIN) 10 mg tablet Take 1 tablet by mouth once daily. (Patient not taking: Reported on 12/21/2022) PEG 400-propylene glycol (SYSTANE ULTRA) 0.4-0.3 % ophthalmic solution Use 1 Drop in both eyes twice daily. gabapentin (NEURONTIN) 300 mg capsule AT BEDTIME acetaminophen (TYLENOL) 500 mg tablet Take 1-2 tablets by mouth three times daily. FAMILY HISTORY Problem Relation Age of Onset Diabetes Mother Glaucoma Mother Macular Degen Mother Diabetes Father No Known Problems Sister Social History Tobacco Use Smoking status: Never Smokeless tobacco: Never Substance Use Topics Alcohol use: Not Currently Drug use: Never EXAM: Virtual visit completed using video, limited exam completed. GENERAL: alert and appropriate, in no distress, well-hydrated, well nourished, and happy, smiling, interactive RESPIRATORY: breathing non-labored CHEST: equal chest rise with normal respiratory effort DATA REVIEWED: Most recent labs Mammogram Screening Never done DTaP,Tdap,Td Vaccine(1 - Tdap) due on 12/22/2023 Pap Testing due on 12/22/2023 HPV Testing due on 12/22/2023 Colorectal Cancer Screening due on 12/22/2023 RSV Vaccine(1 - 1-dose 60+ series) due on 12/22/2023 Hepatitis C Screening due on 12/22/2023 HIV Screening due on 12/22/2023 Shingrix Vaccine(1 of 2) due on 12/22/2023 Covid-19 Vaccine( season) due on 12/22/2023 Annual PCP Team Chronic Disease Visit due on 12/22/2023 Diabetes Screening due on 12/21/2025 Lipid Screening due on 11/13/2027 Influenza Vaccine Completed ASSESSMENT/PLAN: 1. Dyspnea on exertion - ICD9: 786.09, ICD10: R06.09 (primary diagnosis) Continue with plans to see cardiology and will review heart monitor when results are available. - go to ER for increased SOB, chest pressure, palpitations, or other urgent concerns 2. Palpitations - ICD9: 785.1, ICD10: R00.2 As above 3. Lumbar and sacral arthritis - ICD9: 721.3, ICD10: M47.817 - start PT as previously ordered - continue to hold mobic and anti-inflammatories - can use tylenol arthritis - tizanidine as ordered 4. Function kidney decreased - ICD9: 593.9, ICD10: N28.9 As above stable 5. Hypothyroid - ICD9: 242.90, ICD10: E05.90 Not discussed today - labs ordered to be reviewed at next appointment - TSH BLD 6. Elevated glucose - ICD9: 790.29, ICD10: R73.09 - BASIC METABOLIC PNL - HGB A1C Prescription instructions reviewed with patient as applicable. Potential red flag symptoms discussed with the patient. Reviewed appropriate action plan to take if red flag symptoms occur. Patient agreeable to treatment plan. During this patient visit I have spent approximately 20 minutes in counseling regarding medications, test results, and coordinating care. Angelika Wilson APRN.CNP documented in this encounter [facility] 12-24-2022 History of Presen t illness Narrative Radiology Service Progress Note PATIENT NAME: Jillian Burrell DATE OF SERVICE: December 24, 2022 TIME: 1:42 PM PATIENT IDENTITY VERIFICATION COMPLETED USING TWO (2) IDENTIFIERS: Name and Date of confirmed by patient verbally. FALL SCREENING: Has the patient had 2 falls in the last year or 1 fall with injury or currently using an Ambulatory Assistive Device (Walker, Cane, Wheelchair, Crutches, etc.)? Yes, Patient High Risk for Falls What interventions were put in place to prevent falls during this visit? Offered Assistance with Transfers/Clothing and Increased Observations by Caregivers PATIENT GENDER DATA: Female. status: : No status: NO. PATIENT RELEVANT IMPLANT DATA REVIEWED: Not Applicable RADIOLOGY DEPARTMENT: General X-ray: Exam(s) Completed: Chest X-Ray PERIPHERAL IV DATA: Not applicable SIGNED BY: RT Migue(R) December 24, 2022 1:42 PM documented in this encounter [facility] 11-11-2022 Miscellaneous Notes Spoke with pt and information listed below given. Pt verbalizes understanding. Pt reports she will get fasting blood work done. Coby Murray LPN Patient needing fasting blood work completed. Orders are placed. Thank you Angelika Wilson APRN.MYA Patient has been identified by name and date of : No Patient phones for refill(s): Requested Prescriptions Pending Prescriptions Disp Refills meclizine (ANTIVERT) 25 mg tab [Pharmacy Med Name: MECLIZINE TABS 25MG] 30 tablet 35 Sig: TAKE 1 TABLET THREE TIMES A DAY NEEDED FOR DIZZINESS nystatin (MYCOSTATIN) ointment [Pharmacy Med Name: NYSTATIN OINT [id number]] 30 g 23 Sig: APPLY TO THE AFFECTED AREA TWICE A DAY gabapentin (NEURONTIN) 400 mg capsule [Pharmacy Med Name: GABAPENTIN CAPS 400MG] 270 capsule 3 Sig: TAKE 1 CAPSULE THREE TIMES A DAY WITH MEALS (MAY MAKE DROWSY) Date of last office visit in primary care: 06/03/22 Last 2 Encounter Wt Readings: Date: Wt: 09/08/2021 153.3 kg (338 lb) 12/11/2020 150.1 kg (331 lb) Previous labs/tests for medication: Not applicable Please advise. Thank you. Lana Lopez documented in this encounter [facility] 11-09-2022 Miscellaneous Notes Patient has been identified by name and date of : No Patient phones for refill(s): Requested Prescriptions Pending Prescriptions Disp Refills traZODone (DESYREL) 50 mg tablet [Pharmacy Med Name: TRAZODONE HCL TABS 50MG] 90 tablet 3 Sig: TAKE 1 TABLET DAILY AT BEDTIME Date of last office visit in primary care: 06/03/22 Last 2 Encounter Wt Readings: Date: Wt: 09/08/2021 153.3 kg (338 lb) 12/11/2020 150.1 kg (331 lb) Previous labs/tests for medication: Not applicable Please advise. Thank you. Lana Lopez documented in this encounter [facility] 06-03-2022 History of Presen t illness Narrative This Team Access Model visit is a virtual encounter. It required patient-provider interaction for the medical decision making as documented below. Patient agrees to the visit: Yes Patient Location: [place] CC: Patient presents with: Refill Request HPI Jillian Burrell is a 62 year old female who is contacted today for a virtual visit. This is an established patient of Dr. Nigel Carrillo MD. Insomnia: Resolved with trazadone. Did run out of 100mg so started using leftover 50mg tablets which worked just as well as the 100mg. Would like to decrease dose to 50mg FREEMAN: Sleep study completed in 2020 and was not able to tolerate face mask. Would like new prescription to try the nasal pillows as her sister has tried these in the past and liked them. Also has difficulty walking as a result of arthritis and needs handicap placard reordered. REVIEW OF SYSTEMS General: no fevers, no chills, no night sweats, no recurrent infections, no change in appetite, no change in energy, and no significant changes in weight Respiratory: no cough, no wheezing, no shortness of breath, no hemoptysis Cardiovascular: no chest pain, no chest pressure, no palpitations, and no swelling Neurologic: No headache, weakness, numbness, tingling, dizziness, memory loss, syncope. PAST MEDICAL HISTORY Diagnosis Date Depression Generalized anxiety disorder Hiatal hernia Hypothyroid Kidney stones Obstructive sleep apnea syndrome just started Vertigo PAST SURGICAL HISTORY Procedure Laterality Date HEEL-CALCANEUS Bilateral PAST SURGICAL HISTORY OF kidney stone REMOVAL GALLBLADDER 1994 ALLERGIES Codeine and Oxycodone MEDICATIONS ergocalciferol 50,000 unit capsule (VITAMIN D2, DRISDOL) Take 1 capsule by mouth one time a week. meloxicam (MOBIC) 15 mg tablet TAKE 1 TABLET DAILY WITH FOOD levothyroxine (SYNTHROID) 88 mcg tablet Take 1 tablet by mouth once daily. traZODone (DESYREL) 100 mg tablet Take 1 tablet by mouth daily at bedtime. MEDICAL SUPPLY Scooter to help with mobility out side the house gabapentin (NEURONTIN) 400 mg capsule Take 1 capsule by mouth three times daily with meals for 90 days. May make drowsy meclizine (ANTIVERT) 25 mg tab Take 1 tablet by mouth three times daily as needed (dizziness). loratadine (CLARITIN) 10 mg tablet Take 1 tablet by mouth once daily. citalopram (CELEXA) 20 mg tablet Take 1 tablet by mouth once daily. PEG 400-propylene glycol (SYSTANE ULTRA) 0.4-0.3 % ophthalmic solution Use 1 Drop in both eyes twice daily. gabapentin (NEURONTIN) 300 mg capsule AT BEDTIME acetaminophen (TYLENOL) 500 mg tablet Take 1-2 tablets by mouth three times daily. FAMILY HISTORY Problem Relation Age of Onset Diabetes Mother Glaucoma Mother Macular Degen Mother Diabetes Father No Known Problems Sister Social History Tobacco Use Smoking status: Never Smokeless tobacco: Never Substance Use Topics Alcohol use: Not Currently Drug use: Never EXAM: Virtual visit completed using video, limited exam completed. GENERAL: alert and appropriate, in no distress, well-hydrated, well nourished, and happy, smiling, interactive RESPIRATORY: breathing non-labored CHEST: equal chest rise with normal respiratory effort DATA REVIEWED: No new labs HEPATITIS C SCREENING Never done HIV SCREENING Never done DTAP,TDAP,TD(1 - Tdap) Never done PAP TESTING Never done HPV TESTING Never done MAMMOGRAM Never done COLORECTAL CANCER SCREENING Never done SHINGRIX VACCINE(1 of 2) Never done COVID-19 VACCINE(4 - Booster for Pfizer series) due on 10/31/2020 INFLUENZA(Season Ended) due on 10/09/2022 ANNUAL PCP TEAM CHRONIC DISEASE VISIT due on 01/26/2023 DIABETES SCREEN due on 09/08/2024 LIPID SCREEN due on 09/08/2026 ASSESSMENT/PLAN: 1. Insomnia, unspecified type - ICD9: 780.52, ICD10: G47.00 (primary diagnosis) - controlled with current order, will continue - patient needs to come in office for follow up 2. Obstructive sleep apnea syndrome - ICD9: 327.23, ICD10: G47.33 - auto pap with nasal pillows - PAP THERAPY ORDER - follow up 4 weeks after pap therapy initiated 3. Ambulatory dysfunction - ICD9: 719.7, ICD10: R26.2 - PARKING FOR HANDICAPPED 4. Lumbar and sacral arthritis - ICD9: 721.3, ICD10: M47.817 - PARKING FOR HANDICAPPED Prescription instructions reviewed with patient as applicable. Potential red flag symptoms discussed with the patient. Reviewed appropriate action plan to take if red flag symptoms occur. Patient agreeable to treatment plan. During this patient visit I have spent approximately 15 minutes in counseling regarding treatment options and coordinating care. Angelika Wilson APRN.CNP documented in this encounter [facility] 04-21-2022 Miscellaneous Notes Pt called and is notified of providers results and instructions. Pt voices understanding. Anita Kruger RN New antihistamines like cetirizine or ignacia d otc will help her and hopefully not make her drowsy Regards, Nigel Carrillo MD Patient calling stating she is having nasal/allergy issues worse than normal. Is there anything the patient can take that will help symptoms and not make her drowsy? Please advise and call patient. documented in this encounter [facility] 04-09-2022 Miscellaneous Notes Karen with [employer] calling and states pt requesting incontinence supplies and lift chair. Karen is requesting recent OV notes for approval of orders. Contacted patient to verify this request and patient gives consent to fax recent OV notes as requested to [facility]. Faxed as requested to [phone]. Emily Javier RN documented in this encounter [facility] 04-06-2022 Miscellaneous Notes LOVELY: 01/26/2022 Last refill: 05/07/2021 QTY: 30 Refills: 0 Patient has been identified by name and date of : Yes Requested Prescriptions Pending Prescriptions Disp Refills ergocalciferol 50,000 unit capsule (VITAMIN D2, DRISDOL) 90 capsule 3 Sig: Take 1 capsule by mouth one time a week. RX INSTRUCTIONS: Patient aware RX escripted to mail away pharmacy. No need to notify patient. Meme Nix Pss documented in this encounter [facility] 04-06-2022 Miscellaneous Notes Jillian Elinor Ashanti is calling Niegl Carrillo MD today to request Orders for compression gloves due to arthritis in her hands. Please send to [facility] in [facility]. Please notify the patient once completed. Patient has been identified by name and birthdate. Duration of symptoms: N/A Person calling: self Call patient at: at home [phone] (home) [phone] (work) [phone] (cell) Was an appointment scheduled: No Closing statement: Results or non-symptom based questions: Thank you for calling [facility], your call will be returned within the next business day. Meme Nix Pss documented in this encounter [facility] 04-01-2022 Miscellaneous Notes Patient has been identified by name and date of : No Patient phones for refill(s): Requested Prescriptions Pending Prescriptions Disp Refills levothyroxine (SYNTHROID) 88 mcg tablet 90 tablet 3 Sig: Take 1 tablet by mouth once daily. Date of last office visit in primary care: 01/26/22 Last 2 Encounter Wt Readings: Date: Wt: 09/08/2021 153.3 kg (338 lb) 12/11/2020 150.1 kg (331 lb) Previous labs/tests for medication: Thyroid: TSH Date Value 09/08/2021 1.900 mIU/L 08/22/2020 6.260 uU/mL Please advise. Thank you. Lana Mcgregor LPN Patient has been identified by name and date of : Yes Requested Prescriptions Pending Prescriptions Disp Refills levothyroxine (SYNTHROID) 88 mcg tablet 90 tablet 3 Sig: Take 1 tablet by mouth once daily. RX INSTRUCTIONS: Patient aware RX will be sent to pharmacy. No need to notify patient. [employer] documented in this encounter [facility] 03-31-2022 Miscellaneous Notes Patient has been identified by name and date of : Yes, Patient phones for refill(s): Requested Prescriptions Pending Prescriptions Disp Refills meloxicam (MOBIC) 15 mg tablet [Pharmacy Med Name: MELOXICAM TABS 15MG] 90 tablet 3 Sig: TAKE 1 TABLET DAILY WITH FOOD Date of last office visit in primary care: 01/26/2022 No future appt scheduled. Last 2 Encounter Wt Readings: Date: Wt: 09/08/2021 153.3 kg (338 lb) 12/11/2020 150.1 kg (331 lb) Previous labs/tests for medication: Not applicable Please advise. Thank you. Nancy Holcomb LPN documented in this encounter [facility] 02-03-2022 Miscellaneous Notes Patient has been identified by name and date of : Yes, Provider Lydia Castro RN Date 02.03.2022 Time 11:51 am Patient phones for refill(s): Requested Prescriptions Pending Prescriptions Disp Refills nystatin (MYCOSTATIN) ointment 30 g 2 Sig: Apply to affected area twice daily. Date of last office visit with pcp: 01/26/2022 Future appt: 04/30/2021 Last 2 Encounter Wt Readings: Date: Wt: 09/08/2021 153.3 kg (338 lb) 12/11/2020 150.1 kg (331 lb) Previous labs/tests for medication: Blood Pressure: BUN (mg/dL) Date Value 09/08/2021 26 08/22/2020 17 Sodium (mmol/L) Date Value 09/08/2021 138 08/22/2020 137 Last 1 Encounter BP Readings: Date: BP: 09/08/2021 128/72 Liver Function: ALT (U/L) Date Value 09/08/2021 16 08/22/2020 30 AST (U/L) Date Value 09/08/2021 18 08/22/2020 26 Please advise. Thank you. Lydia Castro RN documented in this encounter [facility] 01-26-2022 Instructions Angelika Wilson APRN.D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 - 01/26/2022 9:09 AM EST We are increasing your trazadone dose. You will need to getup in the morning and do some exercise then get dressed and ready for the day to start a new healthy daily routine. documented in this encounter [facility] 01-26-2022 History of Presen t illness Narrative This Team Access Model visit is a phone encounter. It required patient-provider interaction for the medical decision making as documented below. Patient agrees to the visit: Yes Patient Location: [place] CC: Patient presents with: insomnia HPI Jillian Burrell is a 61 year old female who is contacted today for a phone visit. This is an established patient of Dr. Nigel Carrillo MD. Insomnia: Started on trazadone 50mg 4 weeks ago.. Has had issues for years with a switched sleep schedule where she was sleeping all day and up all night. Trazadone does help her get sleepy more often and having improved sleep, but still does not sleep all night every night. Still is having random nights of not being able to fall asleep until 2 Am and sleeps later into the day. 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 Alcohol use: does not drink any alcohol Drug use: No Appetite: good Stresses: Denies any major stressor. Suicidal Thoughts: No suicidal ideation, intent or plan Support: Comes from multiple sources including friends Denies any feeling of depression or anxiety. REVIEW OF SYSTEMS General: no fevers, no chills, no night sweats, no recurrent infections, no change in appetite, no change in energy, and no significant changes in weight Respiratory: no cough, no wheezing, no shortness of breath, no hemoptysis Cardiovascular: no chest pain, no chest pressure, no palpitations, and no swelling Neurologic: No headache, weakness, dizziness, memory loss, syncope. PAST MEDICAL HISTORY Diagnosis Date Depression Generalized anxiety disorder Hiatal hernia Hypothyroid Kidney stones Obstructive sleep apnea syndrome just started Vertigo PAST SURGICAL HISTORY Procedure Laterality Date HEEL-CALCANEUS Bilateral PAST SURGICAL HISTORY OF kidney stone REMOVAL GALLBLADDER 1994 ALLERGIES Codeine and Oxycodone MEDICATIONS MEDICAL SUPPLY Scooter to help with mobility out side the house gabapentin (NEURONTIN) 400 mg capsule Take 1 capsule by mouth three times daily with meals for 90 days. May make drowsy traZODone (DESYREL) 100 mg tablet Take 1 tablet by mouth daily at bedtime. meclizine (ANTIVERT) 25 mg tab Take 1 tablet by mouth three times daily as needed (dizziness). meloxicam (MOBIC) 15 mg tablet Take 1 tablet by mouth once daily. With food. loratadine (CLARITIN) 10 mg tablet Take 1 tablet by mouth once daily. levothyroxine (SYNTHROID) 88 mcg tablet Take 1 tablet by mouth once daily. citalopram (CELEXA) 20 mg tablet Take 1 tablet by mouth once daily. PEG 400-propylene glycol (SYSTANE ULTRA) 0.4-0.3 % ophthalmic solution Use 1 Drop in both eyes twice daily. ergocalciferol 50,000 unit capsule (VITAMIN D2, DRISDOL) Take 1 capsule by mouth one time a week. gabapentin (NEURONTIN) 300 mg capsule AT BEDTIME acetaminophen (TYLENOL) 500 mg tablet Take 1-2 tablets by mouth three times daily. FAMILY HISTORY Problem Relation Age of Onset Diabetes Mother Glaucoma Mother Macular Degen Mother Diabetes Father No Known Problems Sister Social History Tobacco Use Smoking status: Never Smokeless tobacco: Never Substance Use Topics Alcohol use: Not Currently Drug use: Never EXAM: Deferred physical exam as visit was completed over the phone Patient is speaking in complete sentences without obvious respiratory distress or audible wheezing. DATA REVIEWED: No new labs HEPATITIS C SCREENING Never done HIV SCREENING Never done DTAP,TDAP,TD(1 - Tdap) Never done PAP TESTING Never done HPV TESTING Never done MAMMOGRAM Never done COLORECTAL CANCER SCREENING Never done SHINGRIX VACCINE(1 of 2) Never done COVID-19 VACCINE(4 - Booster for Pfizer series) due on 10/31/2020 INFLUENZA(1) due on 10/09/2021 ANNUAL PCP TEAM CHRONIC DISEASE VISIT due on 12/29/2022 DIABETES SCREEN due on 09/08/2024 LIPID SCREEN due on 09/08/2026 ASSESSMENT/PLAN: 1. Insomnia, unspecified type - ICD9: 780.52, ICD10: G47.00 - result of abnormal sleep/wake cycle. Has improved some so will increase dose of trazadone - discussed importance of changing her daily routine to also improve her sleep/wake cycle. Patient to do some type of activity first thing in the AM and then get dressed and ready for the day - follow-up in 3 months and will do annual exam at that visit. Prescription instructions reviewed with patient as applicable. Potential red flag symptoms discussed with the patient. Reviewed appropriate action plan to take if red flag symptoms occur. Patient agreeable to treatment plan. During this patient visit I have spent approximately 18 minutes in counseling regarding treatment options, medications, and coordinating care. Angelika Wilson APRN.MYA documented in this encounter [facility] 01-20-2022 Miscellaneous Notes Order has been faxed to number given. Lana Mcgregor LPN Please fax the designated place that patient requested. Regards, Nigel Carrillo MD Pt had OV on 09/08/21 for scooter. She thought [facility] had called us to tell us that they didn't sell scooters, but they hadn't. Pt is requesting that the Rx be sent to [facility] in [facility] at [phone] attn: Ceci. PH. [phone]. She needs an in office assessment for that. Regards, Nigel Carrillo MD Patient calling office to request DME prescription for scooter to be faxed to [facility] in [facility] at [phone] attn: Ceci. PH. [phone] documented in this encounter [facility] 01-16-2022 Miscellaneous Notes Patient has been identified by name and date of : Yes Last office visit in this department: 09/08/2021 RX INSTRUCTIONS: Patient aware RX will be sent to pharmacy. No need to notify patient. Patient phones requesting refills as follows: Requested Prescriptions Pending Prescriptions Disp Refills gabapentin (NEURONTIN) 400 mg capsule 270 capsule 1 Sig: Take 1 capsule by mouth three times daily with meals for 90 days. May make drowsy Please review and advise. Tati Stoner documented in this encounter [facility] 12-29-2021 History of Presen t illness Narrative This Team Access Model visit is a virtual encounter. It required patient-provider interaction for the medical decision making as documented below. Patient agrees to the visit: Yes Patient Location: [place] CC: Patient presents with: Insomnia HPI Jillian Burrell is a 61 year old female who is contacted today for a virtual visit. This is an established patient of Dr. Nigel Carrillo MD. Has not been working and has caused her sleep schedule to switch. Sleeps all day and is up all night for years. Has tried melatonin unsure on dosage and ambien without either being helpful. Is supposed to be on a sleep apnea machine but with her sleep issues she wakes up constantly and can't tolerate it. REVIEW OF SYSTEMS General: no fevers, no chills, no night sweats, no recurrent infections, no change in appetite, no change in energy, and no significant changes in weight Respiratory: no cough, no wheezing, no shortness of breath, no hemoptysis Cardiovascular: no chest pain, no chest pressure, no palpitations, and no swelling Neurologic: No headache, weakness, numbness, syncope. LATOYA-7 ANXIETY SCALE 12/29/2021 FEELING NERVOUS,ANXIOUS,OR ON EDGE 0 Not at all sure NOT BEING ABLE TO STOP OR CONTROL WORRYING 2 Over half the days WORRYING TOO MUCH ABOUT DIFFERENT THINGS 0 Not at all sure TROUBLE RELAXING 0 Not at all sure BEING SO RESTLESS THAT IT'S HARD TO SIT STILL 0 Not at all sure BEING EASILY ANNOYED OR IRRITABLE 0 Not at all sure FEELING AFRAID IF SOMETHING AWFUL MIGHT HAPPEN 0 Not at all sure GAD7 SCORE 2 IF YOU CHECKED OFF ANY PROBLEMS Somewhat difficult CP PHQ9 12/29/2021 Little interest or pleasure 3 - Nearly every day Feeling down, depressed, hopeless 0 - Not at all Trouble falling or staying asleep, sleeping too much 3 - nearly every day Feeling tired, having little energy 3 - Nearly every day Poor appetite or overeating 0 - Not at all Feeling bad about yourself, failure or you have let yourself/family down 0 - Not at all Trouble concentrating on things 0 - Not at all Moving or speaking so slowly, or fidgety or restless 0 - Not at all Thoughts that you would be better off , or of hurting yourself in some way 0 - Not at all How difficult have these problems made things Very difficult Interpretation of Total Score 5-9 Mild depression PAST MEDICAL HISTORY Diagnosis Date Depression Generalized anxiety disorder Hiatal hernia Hypothyroid Kidney stones Obstructive sleep apnea syndrome just started Vertigo PAST SURGICAL HISTORY Procedure Laterality Date HEEL-CALCANEUS Bilateral PAST SURGICAL HISTORY OF kidney stone REMOVAL GALLBLADDER 1994 ALLERGIES Codeine and Oxycodone MEDICATIONS meclizine (ANTIVERT) 25 mg tab Take 1 tablet by mouth three times daily as needed (dizziness). meloxicam (MOBIC) 15 mg tablet Take 1 tablet by mouth once daily. With food. MEDICAL SUPPLY Scooter to help with mobility out side the house loratadine (CLARITIN) 10 mg tablet Take 1 tablet by mouth once daily. levothyroxine (SYNTHROID) 88 mcg tablet Take 1 tablet by mouth once daily. citalopram (CELEXA) 20 mg tablet Take 1 tablet by mouth once daily. PEG 400-propylene glycol (SYSTANE ULTRA) 0.4-0.3 % ophthalmic solution Use 1 Drop in both eyes twice daily. gabapentin (NEURONTIN) 400 mg capsule Take 1 capsule by mouth three times daily with meals for 90 days. May make drowsy ergocalciferol 50,000 unit capsule (VITAMIN D2, DRISDOL) Take 1 capsule by mouth one time a week. gabapentin (NEURONTIN) 300 mg capsule AT BEDTIME acetaminophen (TYLENOL) 500 mg tablet Take 1-2 tablets by mouth three times daily. FAMILY HISTORY Problem Relation Age of Onset Diabetes Mother Glaucoma Mother Macular Degen Mother Diabetes Father No Known Problems Sister Social History Tobacco Use Smoking status: Never Smokeless tobacco: Never Substance Use Topics Alcohol use: Not Currently Drug use: Never EXAM: Virtual visit completed using video, limited exam completed. GENERAL: alert and appropriate, in no distress, well-hydrated, well nourished, and happy, smiling, interactive RESPIRATORY: breathing non-labored CHEST: equal chest rise with normal respiratory effort ASSESSMENT/PLAN: 1. Insomnia, unspecified type - ICD9: 780.52, ICD10: G47.00 (primary diagnosis) Altered sleep pattern. - will try trazadone for insomnia, but if not effective or not tolerated may need to consider adding Wellbutrin to the day so try an increase motivation to stay awake. 2. Reactive depression - ICD9: 300.4, ICD10: F32.9 - mild depression - as above, if trazadone not effective may need to try adding wellbutrin to improve depression and increase motivation during the day. 3. Obstructive sleep apnea syndrome - ICD9: 327.23, ICD10: G47.33 - need to get sleep schedule normalized to improve compliance with cpap Prescription instructions reviewed with patient as applicable. Potential red flag symptoms discussed with the patient. Reviewed appropriate action plan to take if red flag symptoms occur. Patient agreeable to treatment plan. During this patient visit I have spent approximately 15 minutes in counseling regarding treatment options, medications, and coordinating care. Angelika Wilson APRN.CNP documented in this encounter [facility] 11-24-2021 Miscellaneous Notes Patient has been identified by name and date of : Yes Requested Prescriptions Pending Prescriptions Disp Refills meclizine (ANTIVERT) 25 mg tab Sig: Take 1 tablet by mouth three times daily as needed (dizziness). RX INSTRUCTIONS: Patient aware RX escripted to mail away pharmacy. No need to notify patient. Teri Shay Pss documented in this encounter [facility] 10-20-2021 Miscellaneous Notes Patient has been identified by name and date of : Yes Patient phones for refill(s): Requested Prescriptions Pending Prescriptions Disp Refills meloxicam (MOBIC) 15 mg tablet 90 tablet 0 Sig: Take 1 tablet by mouth once daily. With food. Date of last office visit in primary care: 09/08/2021 No future appt scheduled. Last 2 Encounter Wt Readings: Date: Wt: 09/08/2021 153.3 kg (338 lb) 12/11/2020 150.1 kg (331 lb) Previous labs/tests for medication: Not applicable Please advise. Thank you. Nancy Holcomb LPN Patient has been identified by name and date of : Yes Requested Prescriptions Pending Prescriptions Disp Refills meloxicam (MOBIC) 15 mg tablet 90 tablet 0 Sig: Take 1 tablet by mouth once daily. With food. RX INSTRUCTIONS: Patient aware RX escripted to mail away pharmacy. No need to notify patient. Teri Shay Pss documented in this encounter [facility] 10-01-2021 Miscellaneous Notes Faxed to [facility]. Patient calling back. [facility] is out of network as a DME. She is requesting order for scooter be faxed to [facility]. #[phone]. . My Orozco RN documented in this encounter [facility] 09-10-2021 Miscellaneous Notes Faxed to [facility] Lana, I think we discussed this yesterday , please fax the order and notes as requested Pt called with DME company [facility] . Please fax prescription for the scooter and chart notes. Coby Murray LPN documented in this encounter [facility] 09-08-2021 Miscellaneous Notes Noted patient was here for office visit. Lana Mcgregor LPN Patient is due for all annual labs so orders placed. If not fasting today can come back for fasting lab work. Thank you Angelika Wilson APRN.CNP Patient is here now wanting to have labs done for thyroid? please review. Lana Mcgregor LPN documented in this encounter [facility] 09-02-2021 Miscellaneous Notes Pt notified, parking placard mailed. Patient scheduled with PCP next week. Will discuss then. She will need a face to face visit for scooter. Can arrange an appointment with Dr. Carrillo or Angelika Wilson for this. Brionna Wilson APRN.CNP Patient calling stating she moved and lost her handicap placard. Can Dr. Carrillo write a new prescription for her? Also, patient asking for a letter for a scooter to be sent to her insurance company [employer]. Please advise and call patient. documented in this encounter [facility] 07-21-2021 Miscellaneous Notes Noted. Please let patient know that urgent care might be an option also depending on her symptoms. Thank you Angelika Wilson APRN.CNP Pt called in and reports she is getting back pain like she does when she gets kidney stones. Pt reports she was just in the hospital for sepsis and kidney stones in April. Pt has an appointment with provider on 07/25/21 and was asking if she had any appointments tomorrow. Provider and [facility] PR[facility] OPER[facility] did not have any earlier open appointments this week. Pt reports she was so scared from when she had sepsis, that she is going to go to the ER and come to her appointment on Wednesday. documented in this encounter [facility] 07-04-2021 Miscellaneous Notes Prescription sent. Thank you Angelika Wilson APRN.CNP Last appt with pcp [facility] PR[facility] OPER[facility] was 05/07/21. Next appt is 07/25/21 Jillian Burrell is calling Nigel Carrillo MD today requesting a prescription of Loratadine is sent to mail order pharmacy [facility] Unable to locate script on in chart documented in this encounter [facility] 07-03-2021 Miscellaneous Notes Patient has been identified by name and date of : Yes Pending Prescriptions Disp Refills MELOXICAM 15 MG TABLET Sig: Take 1 tablet by mouth once daily. With food. VIANEY: No RX INSTRUCTIONS: Patient is asking this medication is sent to mail order pharmacy Patient aware RX escripted to mail away pharmacy. No need to notify patient. Lola Bowers documented in this encounter [facility] 06-10-2021 Miscellaneous Notes [facility] reports insurance will not cover meloxicam 7.5 mg twice daily, but will cover meloxicam 15 mg once daily. If provider wants to change Rx to 15 mg once daily, please send new Rx. If pcp wants to do PA, the phone # is [phone]. The invoice # [id number]. Reports it's the twice daily insurance will not cover. documented in this encounter [facility] 06-09-2021 Miscellaneous Notes 1. Pt called and states she wants medications listed below sent to [facility] for 90 days with refills. 2. Please removed Gabapentin 300 mg. Pt states she is only taking the 400 mgs. Patient has been identified by name and date of : Yes Patient phones for refill(s): Pending Prescriptions Disp Refills MELOXICAM 7.5 MG TABLET 180 tablet 1 Sig: Take 1 tablet by mouth twice daily. VIANEY: No LEVOTHYROXINE 88 MCG TABLET 90 tablet 1 Sig: Take 1 tablet by mouth once daily. VIANEY: No CITALOPRAM 20 MG TABLET 90 tablet 3 Sig: Take 1 tablet by mouth once daily. VIANEY: No SYSTANE ULTRA 0.4 %-0.3 % EYE DROPS 10 mL 3 Sig: Use 1 Drop in both eyes twice daily. VIANEY: No GABAPENTIN 400 MG CAPSULE 270 capsule 1 Sig: Take 1 capsule by mouth three times daily with meals for 90 days. May make drowsy VIANEY: No Date of last office visit in primary care: 05/07/21 next apt 06/26/21 Last 2 Encounter Wt Readings: Date: Wt: 12/11/2020 150.1 kg (331 lb) 11/13/2020 143.3 kg (316 lb) Previous labs/tests for medication: Thyroid: TSH (uU/mL) Date Value 08/22/2020 6.260 Thank you. Coby Murray LPN documented in this encounter [facility] 06-06-2021 Miscellaneous Notes Returned call to patient. [facility] called stating patient was on back line and needed to speak with nursing regarding medication. Informed that [facility] does not have an extension to send patients to in [place] and that we are to send telephone encounters for clinical to call patients. Please call patient. documented in this encounter [facility] 06-02-2021 History of Presen t illness Narrative 1. Combined forms of age-related cataract of both eyes Mild. Monitor yearly 2. Dry eye syndrome of bilateral lacrimal glands Recommended starting artificial tears twice daily in both eyes 3. Hypermetropia, bilateral 4. Regular astigmatism of both eyes 5. Presbyopia Finalized spec rx 6. Vitreous floaters of both eyes Monitor as needed. Follow up CLAUDINE with any sudden increase in flahses/floaters or changes in peripheral vision Genna Lancaster, OD June 02, 2021 3:09 PM documented in this encounter [facility] 05-08-2021 Miscellaneous Notes Discussed during appointment. Angelika Wilson APRN.CNP Betsy from [facility] calling patient had complained of right wrist, right hand pain to her elbow when she was at patient home this morning for her visit. Patient had IV in the right hand last week when she was in [facility]. Nurse also said patient plays all day on her phone or computer using the right hand. Patient has hospital follow up video visit scheduled with PRIM[facility] PRESS OPERATOR tomorrow. documented in this encounter [facility] 05-07-2021 History of Presen t illness Narrative This Team Access Model visit is a virtual encounter. It required patient-provider interaction for the medical decision making as documented below. Patient agrees to the visit: Yes Patient Location: [place] CC: Patient presents with: Hospital F/U HPI Jillian Burrell is a 61 year old female who is contacted today for a virtual visit. This is an established patient of Dr. Nigel Carrillo MD. Jillian Burrell is a 61 year old female who presents today for hospital follow-up. Facility: [facility] Date of visit: 04/09/21-04/12/21 Had stone and stent removal 04/19/[address] Vizcarra - next follow up is in 2 weeks. Reason for visit: right flank pain and sepsis. Hospital course:Lab work and CT of abdomen showing 8mm right renal stone. Was admitted with kidney stone and pyelonephritis. Had right stent placed Became septic so had to wait for stone removal as outpatient. Diagnosis:nephrolithiasis and pyelonephritis and sepsis Discharge: discharged home on fluroquinolone for 7 days and scheduled outpatient procedure to remove stent and stone. Current symptoms: States she feels great. Denies any concerns related to her recent infection or kidney stones. Denies back or flank pain, fever, or difficulty urinating. Is concerned because she had an IV in the top of her right hand. Currently feels numb and gets sharp pain in her right hand when she rubs the top of her hand. States she has had pain in her wrist and hand for many years which shoots pain up to elbow, but top of hand is new. Pain feels like a shock. Prior to hospitalization, she ordered a splint for carpal tunnel in case this was the issue. Denies decrease ROM, weakness, discoloration, or edema. REVIEW OF SYSTEMS General: no fevers, no chills, no night sweats, no recurrent infections, no change in appetite, no change in energy and no significant changes in weight Respiratory: no cough, no wheezing, no shortness of breath, no hemoptysis Cardiovascular: no chest pain, no chest pressure, no palpitations and no swelling GI: No nausea, vomiting, or diarrhea, abdominal pain : No dysuria, increase in frequency, blood in urine, dark colored urine, or foul smelling urine. PAST MEDICAL HISTORY Diagnosis Date Depression Generalized anxiety disorder Hiatal hernia Hypothyroid Kidney stones Obstructive sleep apnea syndrome just started Vertigo PAST SURGICAL HISTORY Procedure Laterality Date HEEL-CALCANEUS Bilateral PAST SURGICAL HISTORY OF kidney stone REMOVAL GALLBLADDER 1994 ALLERGIES Codeine MEDICATIONS meloxicam (MOBIC) 7.5 mg tablet Take 1 tablet by mouth twice daily. levothyroxine (SYNTHROID) 88 mcg tablet Take 1 tablet by mouth once daily. citalopram (CELEXA) 20 mg tablet Take 1 tablet by mouth once daily. ergocalciferol 50,000 unit capsule (VITAMIN D2, DRISDOL) Take 1 capsule by mouth one time a week. gabapentin (NEURONTIN) 400 mg capsule Take 1 capsule by mouth three times daily with meals for 90 days. May make drowsy gabapentin (NEURONTIN) 300 mg capsule AT BEDTIME meclizine (ANTIVERT) 25 mg tab Take 1 tablet by mouth three times daily as needed (dizziness). acetaminophen (TYLENOL) 500 mg tablet Take 1-2 tablets by mouth three times daily. FAMILY HISTORY Problem Relation Age of Onset Diabetes Mother Diabetes Father No Known Problems Sister Social History Tobacco Use Smoking status: Never Smoker Smokeless tobacco: Never Used Substance Use Topics Alcohol use: Not Currently Drug use: Never EXAM: Virtual visit completed using video, limited exam completed. GENERAL: alert and appropriate, in no distress, well-hydrated, well nourished and happy, smiling, interactive EYES: no injection and visual acuity is grossly normal RESPIRATORY: breathing non-labored CHEST: equal chest rise with normal respiratory effort Right hand and wrist - No edema, redness, discoloration noted. Patient easily able to flex and extend wrist without pain. DATA REVIEWED: Outside chart from [facility] reviewed. Will review health maintenance at routine follow up visit in office. ASSESSMENT/PLAN: 1. History of recent hospitalization - ICD9: V13.9, ICD10: Z92.89 (primary diagnosis) - multiple diagnoses that appear to have been resolved 2. Kidney stones - ICD9: 592.0, ICD10: N20.0 - no further indication of current kidney stone - continue with follow up in 2 weeks with urology - follow up in office in 2 weeks 3. Pyelonephritis - ICD9: 590.80, ICD10: N12 - appears resolved 4. Anemia, unspecified type - ICD9: 285.9, ICD10: D64.9 - Anemic while at [facility], will recheck - CBC + DIFF 5. Hypothyroidism, unspecified type - ICD9: 244.9, ICD10: E03.9 - TSH not been evaluated since last August - TSH BLD 6. Mixed hyperlipidemia - ICD9: 272.2, ICD10: E78.2 - to be determined upon return of lab results - COMP METABOLIC PANEL - LIPID PANEL BASIC 7. Vitamin D deficiency - ICD9: 268.9, ICD10: E55.9 - VITAMIN D 25 HYDROXY Prescription instructions reviewed with patient as applicable. Potential red flag symptoms discussed with the patient. Reviewed appropriate action plan to take if red flag symptoms occur. Patient agreeable to treatment plan. During this patient visit I have spent approximately 25 minutes in counseling regarding medications, test results and coordinating care. Angelika Wilson APRN.CNP documented in this encounter [facility] 09-06-2020 Miscellaneous Notes Patient used to see Dr Villaseñor and would like to see Zheng and stay at [facility]. Please call her at [phone] (home) to schedule. Thank you Lidya Hernandez Pss documented in this encounter [facility] 03-14-2020 History of Presen t illness Narrative Radiology Service Progress Note PATIENT NAME: Jillian Burrell DATE OF SERVICE: March 14, 2020 TIME: 11:19 AM PATIENT IDENTITY VERIFICATION COMPLETED USING TWO (2) IDENTIFIERS: Name and Date of confirmed by patient verbally. FALL SCREENING: Has the patient had 2 falls in the last year or 1 fall with injury or currently using an Ambulatory Assistive Device (Walker, Cane, Wheelchair, Crutches, etc.)? No PATIENT GENDER DATA: Female. status: : No status: NO. PATIENT RELEVANT IMPLANT DATA REVIEWED: Yes RADIOLOGY DEPARTMENT: General X-ray: Exam(s) Completed: Spine X-Ray(s): Lumbar AP / LAT / L5-S1 Pelvis X-Ray: Pelvis with Hip Bilateral PERIPHERAL IV DATA: Not applicable SIGNED BY: RT Stella March 14, 2020 11:19 AM documented in this encounter [facility] Evaluation note Diagnosis History of recent hospitalization- Primary Personal history of unspecified disease Kidney stones Calculus of kidney Pyelonephritis Pyelonephritis, unspecified Anemia, unspecified type Hypothyroidism, unspecified type Mixed hyperlipidemia Vitamin D deficiency Unspecified vitamin D deficiency [facility] Diagnosis Combined forms of age-related cataract of both eyes- Primary Other and combined forms of senile cataract Dry eye syndrome of bilateral lacrimal glands Tear film insufficiency, unspecified Hypermetropia, bilateral Regular astigmatism of both eyes Regular astigmatism Presbyopia Vitreous floaters of both eyes [facility]* Diagnosis Hypothyroidism, unspecified type Medication management Encounter for long-term (current) use of other medications [facility] Diagnosis Encounter for screening mammogram for breast cancer [facility]* Diagnosis Hypothyroid- Primary Thyrotoxicosis without mention of goiter or other cause, without mention of thyrotoxic crisis or storm Mixed hyperlipidemia Essential hypertension Unspecified essential hypertension Encounter for screening for diabetes mellitus Screening for diabetes mellitus Vitamin D deficiency Unspecified vitamin D deficiency [facility]* Diagnosis Insomnia, unspecified type- Primary Reactive depression Dysthymic disorder Obstructive sleep apnea syndrome Obstructive sleep apnea (adult) (pediatric) [facility] Diagnosis Ambulatory dysfunction- Primary Difficulty in walking Lumbar and sacral arthritis Lumbosacral spondylosis without myelopathy Morbidly obese (HCC) Morbid obesity Chronic low back pain, unspecified back pain laterality, unspecified whether sciatica present [facility]* Diagnosis Insomnia, unspecified type- Primary [facility] noteNo assessment information availableWKettering [facility] Work Phone: Evaluation note* Diagnosis Hand arthritis- Primary Unspecified arthropathy, hand Hand edema Edema [facility] Insomnia, unspecified type- Primary Obstructive sleep apnea syndrome Obstructive sleep apnea (adult) (pediatric) Ambulatory dysfunction Difficulty in walking Lumbar and sacral arthritis Lumbosacral spondylosis without myelopathy [facility] Diagnosis Encounter for screening mammogram for breast cancer [facility]* Diagnosis Hypothyroid- Primary Thyrotoxicosis without mention of goiter or other cause, without mention of thyrotoxic crisis or storm Medication management Encounter for long-term (current) use of other medications Mixed hyperlipidemia Essential hypertension Unspecified essential hypertension Vitamin D deficiency Unspecified vitamin D deficiency [facility] Medication management Encounter for long-term (current) use of other medications Hyperthyroidism Thyrotoxicosis without mention of goiter or other cause, without mention of thyrotoxic crisis or storm [facility] Diagnosis Dyspnea on exertion Other dyspnea and respiratory abnormality Lightheaded Dizziness and giddiness [facility]* Diagnosis Dyspnea on exertion- Primary Other dyspnea and respiratory abnormality Palpitations Lumbar and sacral arthritis Lumbosacral spondylosis without myelopathy Function kidney decreased Unspecified disorder of kidney and ureter Hypothyroid Thyrotoxicosis without mention of goiter or other cause, without mention of thyrotoxic crisis or storm Elevated glucose Other abnormal glucose [facility] Diagnosis Pain, dental- Primary Unspecified disorder of the teeth and supporting structures [facility] Diagnosis Lumbar and sacral arthritis- Primary Lumbosacral spondylosis without myelopathy Ambulatory dysfunction Difficulty in walking Chronic bilateral low back pain with sciatica, sciatica laterality unspecified Acute pain of right knee [facility]* Diagnosis Lumbar radiculopathy- Primary Thoracic or lumbosacral neuritis or radiculitis, unspecified Lumbar and sacral arthritis Lumbosacral spondylosis without myelopathy Ambulatory dysfunction Difficulty in walking Chronic bilateral low back pain with sciatica, sciatica laterality unspecified [facility] Diagnosis Lumbar and sacral arthritis- Primary Lumbosacral spondylosis without myelopathy Lumbar radiculopathy Thoracic or lumbosacral neuritis or radiculitis, unspecified [facility] Diagnosis Acute pain of right knee [facility] Diagnosis Encounter for screening mammogram for breast cancer Lumbar and sacral arthritis Lumbosacral spondylosis without myelopathy Lumbar radiculopathy Thoracic or lumbosacral neuritis or radiculitis, unspecified [facility]* Diagnosis Onset Date Resolution Status Abnormal EKG chronic Ascending aorta dilatation c hronic Chest pain chronic Dyspnea on exertion chronic Morbid obesity chronic Palpitations [facility] Work Phone: Evaluation note* Diagnosis Lumbar and sacral arthritis Lumbosacral spondylosis without myelopathy Hip arthritis Unspecified arthropathy, pelvic region and thigh [facility]* Diagnosis Ambulatory dysfunction- Primary Difficulty in walking Lumbar and sacral arthritis Lumbosacral spondylosis without myelopathy Lives alone Other fatigue Anxiety and depression Dysthymic disorder Hypothyroid Thyrotoxicosis without mention of goiter or other cause, without mention of thyrotoxic crisis or storm Encounter for immunization Need for other specified prophylactic vaccination against single bacterial disease Lipid screening Screening for lipoid disorders Insomnia, unspecified type [facility] Diagnosis Function kidney decreased- Primary Unspecified disorder of kidney and ureter [facility]* Diagnosis Anxiety and depression- Primary Dysthymic disorder Other fatigue Vitamin B12 deficiency Other B-complex deficiencies Function kidney decreased Unspecified disorder of kidney and ureter Ambulatory dysfunction Difficulty in walking [facility]* Diagnosis Ambulatory dysfunction- Primary Difficulty in walking Lumbar and sacral arthritis Lumbosacral spondylosis without myelopathy Weakness of both lower extremities [facility]* Diagnosis Encounter for screening mammogram for breast cancer [facility] Diagnosis Hyponatremia- Primary Hyposmolality and/or hyponatremia documented [facility]* Diagnosis Dizziness- Primary Dizziness and giddiness Anxiety and depression Dysthymic disorder Tinnitus, bilateral Unspecified tinnitus documented [facility]* Diagnosis Other specified hearing loss, unspecified ear- Primary [facility] Diagnosis Anxiety and depression- Primary Dysthymic disorder Dizziness Dizziness and giddiness documented [facility]* Diagnosis Sensorineural hearing loss, bilateral- Primary Other specified hearing loss, unspecified ear Tinnitus, bilateral Unspecified tinnitus Vertigo Dizziness and giddiness [facility]* Diagnosis Dizziness Dizziness and giddiness Tinnitus, bilateral Unspecified tinnitus Sensorineural hearing loss, bilateral Vertigo Dizziness and giddiness [facility] Additional Instructions 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 Return for any worsening chest pain or shortness of breathWKettering [facility] Work Phone: Reason for referral (narrative)* Diagnostic Procedure Only (Routine) - Pending Review Specialty Diagnoses / Procedures Referred By Nenita wong Referred To Contact [facility] Diagnoses Encounter for screening mammogram for breast cancer Procedures LEI SCREENING SCREENING MAMMOGRAPHY BI 2-VIEW BREAST INC Nigel Dao MD [address] [place] [id number] [facility] [address] [place] [address] Referral ID Status Reason Start Date Expiration Date Visits Requested Visits Authorized [id number] Pending Review Auto-Generat ed Referral 07/30/2021 08/29/2022 1 1 [facility] for referral (narrative)* Diagnostic Procedure Only (Routine) - Pending Review Specialty Diagnoses / Procedures Referred By Nenita wong Referred To Contact [facility] Diagnoses Encounter for screening mammogram for breast cancer Procedures LEI SCREENING SCREENING MAMMOGRAPHY BI 2-VIEW BREAST INC Nigel Dao MD [address] [place] [address] [facility] [address] [place] [address] Referral ID Status Reason Start Date Expiration Date Visits Requested Visits Authorized [id number] Pending Review Auto-Generat ed Referral 07/01/2022 07/31/2023 1 1 T [facility] for referral (narrative)* Diagnostic Procedure Only (Routine) - Pending Review Specialty Diagnoses / Procedures Referred By Nenita t Referred To Contact [facility] Diagnoses Encounter for screening mammogram for breast cancer Procedures LEI SCREENING SCREENING MAMMOGRAPHY BI 2-VIEW BREAST INC Nigel Dao MD [address] [place] [address] [facility] [address] [place] [address] Referral ID Status Reason Start Date Expiration Date Visits Requested Visits Authorized [id number] Pending Review Auto-Generat ed Referral 06/09/2023 07/08/2024 1 1 [facility] for visit Narrative* Diagnostic Procedure Only (Routine) - Closed Specialty Diagnoses / Procedures Referred By Contac t Referred To Contact XR IMAGING Diagnoses Acute pain of right knee Procedures XR KNEE GENERAL 4V AP BOTH/PA BOTH/LAT/MERC RIGHT RADIOLOGIC EXAM KNEE COMPLETE 4/MORE VIEWS Angelika Wilson APRN.CNP [address] [place] [address] [place] [address] Referral ID Status Reason Start Date Expiration Date V isits Requested Visits Authorized [id number] Closed Auto-Generate d Referral 06/02/2023 07/01/2024 1 1 [facility] Summary Purpose Family History No Family History Records Found Relationship Condition Age at Onset Recorded Date/T anna father Cardiac disease Unknown Diabetes mellitus Unknown mother Malignant neoplasm Unknown Relationship Condition Age at Onset Recorded Date/T anna father Cardiac disease Unknown Diabetes mellitus Unknown mother Malignant neoplasm Unknown Macular degeneration Unknown Advance Directives No Advanced Directives Records Found Advance Directive Response Recorded Date/ Time Living Will Yes February 19 6:13pm Power of Administrative Staff Supervisor Yes February 19, 2022 6:13pm Name of Medical Power of Administrative Staff Supervisor brinda jaime-sister February 19, 2022 6:13pm Advance Directive Response Recorded Date/ Time Living Will No June 14, 2023 5: 30pm Power of Administrative Staff Supervisor No June 14, 2023 5:30pm Medications Administered Section Active Administered Medications - up to 3 most recent administrations Medication Order MAR Action Action Date Dose Rate Site fluorescein-benoxinate 0.25-0.4 % 1 Drop (FLURESS) 1 Drop, BOTH EYES, DIRECTED, Starting on Wed06/02/21 at 1430, Until Wed06/03/21 at 0229, Administer for applanation tonometry. In the event of a Fluress shortage, administer [place]-Fluor 1 drop into both eyes as directed for applanation tonometry Given 06/02/2021 2:30 PM EDT 1 Drop PHENYLephrine 2.5 % 1 Drop (AK-DILATE, LANE-SYNEPHRINE) 1 Drop, BOTH EYES, DIRECTED, Starting on Wed06/02/21 at 1430, Until Wed06/03/21 at 0229, Administer for dilation PROTECT FROM LIGHT Given 06/02/2021 2:30 PM EDT 1 Drop tropicamide 1 % 1 Drop (MYDRIACYL) 1 Drop, BOTH EYES, DIRECTED, Starting on Wed06/02/21 at 1430, Until Wed06/03/21 at 0229, Administer for dilation Given 06/02/2021 2:30 PM EDT 1 Drop Chief Complaint and Reason for Visit Chief Complaint shortness of breath Chief Complaint GUTIÉRREZ/EBN EKG (OLDER) SOB Reason for Visit Abnormal EKG Ascending aorta dilatation Chest pain Dyspnea on exertion Morbid obesity Palpitations Reason for Referral Specialty Diagnoses / Procedures Referred By Nenita wong Referred To Contact Pain Management Diagnoses Lumbar and sacral arthritis Ambulatory dysfunction Chronic bilateral low back pain with sciatica, sciatica laterality unspecified Procedures CONSULT TO PAIN MGT OFFICE/OUTPATIENT [facility] MDM 60 MINUTES Angelika Wilson APRN.D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 [address] [place] [address] Referral ID Status Reason Start Date Expiration Date V isits Requested Visits Authorized [id number] Closed PCP Requested Referral 06/02/2023 06/01/2024 1 1 Specialty Diagnoses / Procedures Referred By Nenita wong Referred To Contact XR IMAGING Diagnoses Acute pain of right knee Procedures XR KNEE GENERAL 4V AP BOTH/PA BOTH/LAT/MERC RIGHT RADIOLOGIC EXAM KNEE COMPLETE 4/MORE VIEWS Angelika Wilson APRN.D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 [address] [place] [address] [place] [address] Referral ID Status Reason Start Date Expiration Date V isits Requested Visits Authorized [id number] Closed Auto-Generate d Referral 06/02/2023 07/01/2024 1 1 Specialty Diagnoses / Procedures Referred By Nenita t Referred To Contact Angelika Wilson APRN.D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 [address] [facility] [place] [address] Referral ID Status Reason Start Date Expiration Date Visits Re quested Visits Authorized [id number] Closed 1 1 Additional Source Comments INFORMATION SOURCE (unrecogn ized section and content) DATE CREATED AUTHOR 11/08/2019 [facility] DATE CREATED AUTHOR AUTHOR'S ORGANIZ ATION 08/12/2023 [facility] DATE CREATED AUTHOR AUTHOR'S ORGANIZ ATION 10/24/2024 [facility] DATE CREATED AUTHOR AUTHOR'S ORGANIZ ATION 10/25/2024 [facility] Source Comments (unrecognize d section and content) In the event this informatio n is protected by the Federal Confidentiality of Alcohol and Drug Abuse Patient Records regulations: The Federal rules restrict any use of the information to criminally investigate or prosecute any alcohol or drug abuse patient.[facility] the event this information is protected by the Federal Confidentiality of Alcohol and Drug Abuse Patient Records regulations: The Federal rules restrict any use of the information to criminally investigate or prosecute any alcohol or drug abuse patient.[facility] the event this information is protected by the Federal Confidentiality of Alcohol and Drug Abuse Patient Records regulations: The Federal rules restrict any use of the information to criminally investigate or prosecute any alcohol or drug abuse patient.[facility] HospitalIn the event this information is protected by the Federal Confidentiality of Alcohol and Drug Abuse Patient Records regulations: The Federal rules restrict any use of the information to criminally investigate or prosecute any alcohol or drug abuse patient.[facility] Hospital[facility] the event this information is protected by the Federal Confidentiality of Alcohol and Drug Abuse Patient Records regulations: The Federal rules restrict any use of the information to criminally investigate or prosecute any alcohol or drug abuse patient.[facility] the event this information is protected by the Federal Confidentiality of Alcohol and Drug Abuse Patient Records regulations: The Federal rules restrict any use of the information to criminally investigate or prosecute any alcohol or drug abuse patient.[facility] HospitalIn the event this information is protected by the Federal Confidentiality of Alcohol and Drug Abuse Patient Records regulations: The Federal rules restrict any use of the information to criminally investigate or prosecute any alcohol or drug abuse patient.[facility] HospitalIn the event this information is protected by the Federal Confidentiality of Alcohol and Drug Abuse Patient Records regulations: The Federal rules restrict any use of the information to criminally investigate or prosecute any alcohol or drug abuse patient.[facility] HospitalIn the event this information is protected by the Federal Confidentiality of Alcohol and Drug Abuse Patient Records regulations: The Federal rules restrict any use of the information to criminally investigate or prosecute any alcohol or drug abuse patient.[facility] HospitalIn the event this information is protected by the Federal Confidentiality of Alcohol and Drug Abuse Patient Records regulations: The Federal rules restrict any use of the information to criminally investigate or prosecute any alcohol or drug abuse patient.[facility] HospitalIn the event this information is protected by the Federal Confidentiality of Alcohol and Drug Abuse Patient Records regulations: The Federal rules restrict any use of the information to criminally investigate or prosecute any alcohol or drug abuse patient.[facility] HospitalIn the event this information is protected by the Federal Confidentiality of Alcohol and Drug Abuse Patient Records regulations: The Federal rules restrict any use of the information to criminally investigate or prosecute any alcohol or drug abuse patient.[facility] HospitalIn the event this information is protected by the Federal Confidentiality of Alcohol and Drug Abuse Patient Records regulations: The Federal rules restrict any use of the information to criminally investigate or prosecute any alcohol or drug abuse patient.[facility] HospitalIn the event this information is protected by the Federal Confidentiality of Alcohol and Drug Abuse Patient Records regulations: The Federal rules restrict any use of the information to criminally investigate or prosecute any alcohol or drug abuse patient.[facility] HospitalIn the event this information is protected by the Federal Confidentiality of Alcohol and Drug Abuse Patient Records regulations: The Federal rules restrict any use of the information to criminally investigate or prosecute any alcohol or drug abuse patient.[facility] HospitalIn the event this information is protected by the Federal Confidentiality of Alcohol and Drug Abuse Patient Records regulations: The Federal rules restrict any use of the information to criminally investigate or prosecute any alcohol or drug abuse patient.[facility] HospitalIn the event this information is protected by the Federal Confidentiality of Alcohol and Drug Abuse Patient Records regulations: The Federal rules restrict any use of the information to criminally investigate or prosecute any alcohol or drug abuse patient.[facility] HospitalIn the event this information is protected by the Federal Confidentiality of Alcohol and Drug Abuse Patient Records regulations: The Federal rules restrict any use of the information to criminally investigate or prosecute any alcohol or drug abuse patient.[facility] HospitalIn the event this information is protected by the Federal Confidentiality of Alcohol and Drug Abuse Patient Records regulations: The Federal rules restrict any use of the information to criminally investigate or prosecute any alcohol or drug abuse patient.[facility] HospitalIn the event this information is protected by the Federal Confidentiality of Alcohol and Drug Abuse Patient Records regulations: The Federal rules restrict any use of the information to criminally investigate or prosecute any alcohol or drug abuse patient.[facility] HospitalIn the event this information is protected by the Federal Confidentiality of Alcohol and Drug Abuse Patient Records regulations: The Federal rules restrict any use of the information to criminally investigate or prosecute any alcohol or drug abuse patient.[facility] HospitalIn the event this information is protected by the Federal Confidentiality of Alcohol and Drug Abuse Patient Records regulations: The Federal rules restrict any use of the information to criminally investigate or prosecute any alcohol or drug abuse patient.[facility] HospitalIn the event this information is protected by the Federal Confidentiality of Alcohol and Drug Abuse Patient Records regulations: The Federal rules restrict any use of the information to criminally investigate or prosecute any alcohol or drug abuse patient.[facility] HospitalIn the event this information is protected by the Federal Confidentiality of Alcohol and Drug Abuse Patient Records regulations: The Federal rules restrict any use of the information to criminally investigate or prosecute any alcohol or drug abuse patient.[facility] HospitalIn the event this information is protected by the Federal Confidentiality of Alcohol and Drug Abuse Patient Records regulations: The Federal rules restrict any use of the information to criminally investigate or prosecute any alcohol or drug abuse patient.[facility] HospitalIn the event this information is protected by the Federal Confidentiality of Alcohol and Drug Abuse Patient Records regulations: The Federal rules restrict any use of the information to criminally investigate or prosecute any alcohol or drug abuse patient.[facility] HospitalIn the event this information is protected by the Federal Confidentiality of Alcohol and Drug Abuse Patient Records regulations: The Federal rules restrict any use of the information to criminally investigate or prosecute any alcohol or drug abuse patient.[facility] HospitalIn the event this information is protected by the Federal Confidentiality of Alcohol and Drug Abuse Patient Records regulations: The Federal rules restrict any use of the information to criminally investigate or prosecute any alcohol or drug abuse patient.[facility] HospitalIn the event this information is protected by the Federal Confidentiality of Alcohol and Drug Abuse Patient Records regulations: The Federal rules restrict any use of the information to criminally investigate or prosecute any alcohol or drug abuse patient.[facility] HospitalIn the event this information is protected by the Federal Confidentiality of Alcohol and Drug Abuse Patient Records regulations: The Federal rules restrict any use of the information to criminally investigate or prosecute any alcohol or drug abuse patient.[facility] HospitalIn the event this information is protected by the Federal Confidentiality of Alcohol and Drug Abuse Patient Records regulations: The Federal rules restrict any use of the information to criminally investigate or prosecute any alcohol or drug abuse patient.[facility] HospitalIn the event this information is protected by the Federal Confidentiality of Alcohol and Drug Abuse Patient Records regulations: The Federal rules restrict any use of the information to criminally investigate or prosecute any alcohol or drug abuse patient.[facility] HospitalIn the event this information is protected by the Federal Confidentiality of Alcohol and Drug Abuse Patient Records regulations: The Federal rules restrict any use of the information to criminally investigate or prosecute any alcohol or drug abuse patient.[facility] HospitalIn the event this information is protected by the Federal Confidentiality of Alcohol and Drug Abuse Patient Records regulations: The Federal rules restrict any use of the information to criminally investigate or prosecute any alcohol or drug abuse patient.[facility] HospitalIn the event this information is protected by the Federal Confidentiality of Alcohol and Drug Abuse Patient Records regulations: The Federal rules restrict any use of the information to criminally investigate or prosecute any alcohol or drug abuse patient.[facility] HospitalIn the event this information is protected by the Federal Confidentiality of Alcohol and Drug Abuse Patient Records regulations: The Federal rules restrict any use of the information to criminally investigate or prosecute any alcohol or drug abuse patient.[facility] HospitalIn the event this information is protected by the Federal Confidentiality of Alcohol and Drug Abuse Patient Records regulations: The Federal rules restrict any use of the information to criminally investigate or prosecute any alcohol or drug abuse patient.[facility] HospitalIn the event this information is protected by the Federal Confidentiality of Alcohol and Drug Abuse Patient Records regulations: The Federal rules restrict any use of the information to criminally investigate or prosecute any alcohol or drug abuse patient.[facility] HospitalIn the event this information is protected by the Federal Confidentiality of Alcohol and Drug Abuse Patient Records regulations: The Federal rules restrict any use of the information to criminally investigate or prosecute any alcohol or drug abuse patient.[facility] HospitalIn the event this information is protected by the Federal Confidentiality of Alcohol and Drug Abuse Patient Records regulations: The Federal rules restrict any use of the information to criminally investigate or prosecute any alcohol or drug abuse patient.[facility] HospitalIn the event this information is protected by the Federal Confidentiality of Alcohol and Drug Abuse Patient Records regulations: The Federal rules restrict any use of the information to criminally investigate or prosecute any alcohol or drug abuse patient.[facility] HospitalIn the event this information is protected by the Federal Confidentiality of Alcohol and Drug Abuse Patient Records regulations: The Federal rules restrict any use of the information to criminally investigate or prosecute any alcohol or drug abuse patient.[facility] HospitalIn the event this information is protected by the Federal Confidentiality of Alcohol and Drug Abuse Patient Records regulations: The Federal rules restrict any use of the information to criminally investigate or prosecute any alcohol or drug abuse patient.[facility] HospitalIn the event this information is protected by the Federal Confidentiality of Alcohol and Drug Abuse Patient Records regulations: The Federal rules restrict any use of the information to criminally investigate or prosecute any alcohol or drug abuse patient.[facility] HospitalIn the event this information is protected by the Federal Confidentiality of Alcohol and Drug Abuse Patient Records regulations: The Federal rules restrict any use of the information to criminally investigate or prosecute any alcohol or drug abuse patient.[facility] HospitalIn the event this information is protected by the Federal Confidentiality of Alcohol and Drug Abuse Patient Records regulations: The Federal rules restrict any use of the information to criminally investigate or prosecute any alcohol or drug abuse patient.[facility] HospitalIn the event this information is protected by the Federal Confidentiality of Alcohol and Drug Abuse Patient Records regulations: The Federal rules restrict any use of the information to criminally investigate or prosecute any alcohol or drug abuse patient.[facility] HospitalIn the event this information is protected by the Federal Confidentiality of Alcohol and Drug Abuse Patient Records regulations: The Federal rules restrict any use of the information to criminally investigate or prosecute any alcohol or drug abuse patient.[facility] HospitalIn the event this information is protected by the Federal Confidentiality of Alcohol and Drug Abuse Patient Records regulations: The Federal rules restrict any use of the information to criminally investigate or prosecute any alcohol or drug abuse patient.[facility] HospitalIn the event this information is protected by the Federal Confidentiality of Alcohol and Drug Abuse Patient Records regulations: The Federal rules restrict any use of the information to criminally investigate or prosecute any alcohol or drug abuse patient.[facility] HospitalIn the event this information is protected by the Federal Confidentiality of Alcohol and Drug Abuse Patient Records regulations: The Federal rules restrict any use of the information to criminally investigate or prosecute any alcohol or drug abuse patient.[facility] HospitalIn the event this information is protected by the Federal Confidentiality of Alcohol and Drug Abuse Patient Records regulations: The Federal rules restrict any use of the information to criminally investigate or prosecute any alcohol or drug abuse patient.[facility] HospitalIn the event this information is protected by the Federal Confidentiality of Alcohol and Drug Abuse Patient Records regulations: The Federal rules restrict any use of the information to criminally investigate or prosecute any alcohol or drug abuse patient.[facility] HospitalIn the event this information is protected by the Federal Confidentiality of Alcohol and Drug Abuse Patient Records regulations: The Federal rules restrict any use of the information to criminally investigate or prosecute any alcohol or drug abuse patient.[facility] HospitalIn the event this information is protected by the Federal Confidentiality of Alcohol and Drug Abuse Patient Records regulations: The Federal rules restrict any use of the information to criminally investigate or prosecute any alcohol or drug abuse patient.[facility] HospitalIn the event this information is protected by the Federal Confidentiality of Alcohol and Drug Abuse Patient Records regulations: The Federal rules restrict any use of the information to criminally investigate or prosecute any alcohol or drug abuse patient.[facility] HospitalIn the event this information is protected by the Federal Confidentiality of Alcohol and Drug Abuse Patient Records regulations: The Federal rules restrict any use of the information to criminally investigate or prosecute any alcohol or drug abuse patient.[facility] HospitalIn the event this information is protected by the Federal Confidentiality of Alcohol and Drug Abuse Patient Records regulations: The Federal rules restrict any use of the information to criminally investigate or prosecute any alcohol or drug abuse patient.[facility] HospitalIn the event this information is protected by the Federal Confidentiality of Alcohol and Drug Abuse Patient Records regulations: The Federal rules restrict any use of the information to criminally investigate or prosecute any alcohol or drug abuse patient.[facility] HospitalIn the event this information is protected by the Federal Confidentiality of Alcohol and Drug Abuse Patient Records regulations: The Federal rules restrict any use of the information to criminally investigate or prosecute any alcohol or drug abuse patient.[facility] HospitalIn the event this information is protected by the Federal Confidentiality of Alcohol and Drug Abuse Patient Records regulations: The Federal rules restrict any use of the information to criminally investigate or prosecute any alcohol or drug abuse patient.[facility] HospitalIn the event this information is protected by the Federal Confidentiality of Alcohol and Drug Abuse Patient Records regulations: The Federal rules restrict any use of the information to criminally investigate or prosecute any alcohol or drug abuse patient.[facility] HospitalIn the event this information is protected by the Federal Confidentiality of Alcohol and Drug Abuse Patient Records regulations: The Federal rules restrict any use of the information to criminally investigate or prosecute any alcohol or drug abuse patient.[facility] HospitalIn the event this information is protected by the Federal Confidentiality of Alcohol and Drug Abuse Patient Records regulations: The Federal rules restrict any use of the information to criminally investigate or prosecute any alcohol or drug abuse patient.[facility] HospitalIn the event this information is protected by the Federal Confidentiality of Alcohol and Drug Abuse Patient Records regulations: The Federal rules restrict any use of the information to criminally investigate or prosecute any alcohol or drug abuse patient.[facility] HospitalIn the event this information is protected by the Federal Confidentiality of Alcohol and Drug Abuse Patient Records regulations: The Federal rules restrict any use of the information to criminally investigate or prosecute any alcohol or drug abuse patient.[facility] HospitalIn the event this information is protected by the Federal Confidentiality of Alcohol and Drug Abuse Patient Records regulations: The Federal rules restrict any use of the information to criminally investigate or prosecute any alcohol or drug abuse patient.[facility] HospitalIn the event this information is protected by the Federal Confidentiality of Alcohol and Drug Abuse Patient Records regulations: The Federal rules restrict any use of the information to criminally investigate or prosecute any alcohol or drug abuse patient.[facility] HospitalIn the event this information is protected by the Federal Confidentiality of Alcohol and Drug Abuse Patient Records regulations: The Federal rules restrict any use of the information to criminally investigate or prosecute any alcohol or drug abuse patient.[facility] HospitalIn the event this information is protected by the Federal Confidentiality of Alcohol and Drug Abuse Patient Records regulations: The Federal rules restrict any use of the information to criminally investigate or prosecute any alcohol or drug abuse patient.[facility] HospitalIn the event this information is protected by the Federal Confidentiality of Alcohol and Drug Abuse Patient Records regulations: The Federal rules restrict any use of the information to criminally investigate or prosecute any alcohol or drug abuse patient.[facility] HospitalIn the event this information is protected by the Federal Confidentiality of Alcohol and Drug Abuse Patient Records regulations: The Federal rules restrict any use of the information to criminally investigate or prosecute any alcohol or drug abuse patient.[facility] HospitalIn the event this information is protected by the Federal Confidentiality of Alcohol and Drug Abuse Patient Records regulations: The Federal rules restrict any use of the information to criminally investigate or prosecute any alcohol or drug abuse patient.[facility] HospitalIn the event this information is protected by the Federal Confidentiality of Alcohol and Drug Abuse Patient Records regulations: The Federal rules restrict any use of the information to criminally investigate or prosecute any alcohol or drug abuse patient.[facility] HospitalIn the event this information is protected by the Federal Confidentiality of Alcohol and Drug Abuse Patient Records regulations: The Federal rules restrict any use of the information to criminally investigate or prosecute any alcohol or drug abuse patient.[facility] HospitalIn the event this information is protected by the Federal Confidentiality of Alcohol and Drug Abuse Patient Records regulations: The Federal rules restrict any use of the information to criminally investigate or prosecute any alcohol or drug abuse patient.[facility] Reason for Visit (unrecogniz ed section and content) Reason Comments Hospital F/U Reason Comments Patient Update Reason Comments New Patient Reason Comments Decreased Vision Both Eyes Reason Comments Patient Question Reason Onset Date Comments Refill Request 06/09/2021 Reason Onset Date Comments Refill Request 07/03/2021 Reason Comments Medication Request Reason Comments Meloxicam issue Reason Comments Orders pt here now for thyr oid labs Reason Comments DME company Reason Comments Order for scooter Reason Onset Date Comments Refill Request 10/20/2021 Reason Onset Date Comments Refill Request 11/24/2021 Reason Comments Insomnia Reason Comments Refill Request Reason Comments Orders Prescription for Sco oter Reason Comments insomnia Reason Onset Date Comments Refill Request 02/03/2022 Reason Comments Orders Compression gloves Reason Onset Date Comments Refill Request 04/06/2022 Reason Comments Medical Supplies Reason Comments Recheck Reason Comments Patient Question Antibiotic for absce ssed tooth Reason Comments Dental Problem Requesting abx Reason Comments Incontinent supply order from [facility] Reason Onset Date Comments Refill Request 05/31/2023 Reason Comments Recheck Face to face for dimas ir lift Reason Comments New Patient Evaluation Back Pain Lower Knee Pain Right Specialty Diagnoses / Procedures Referred By Nenita wong Referred To Contact Pain Management Diagnoses Lumbar and sacral arthritis Ambulatory dysfunction Chronic bilateral low back pain with sciatica, sciatica laterality unspecified Procedures CONSULT TO PAIN MGT OFFICE/OUTPATIENT NEW HIGH MDM 60 MINUTES 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, 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, 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 [address] [place] [address] Referral ID Status Reason Start Date Expiration Date V isits Requested Visits Authorized [id number] Closed PCP Requested Referral 06/02/2023 06/01/2024 1 1 Reason Comments Injection Questions Reason Comments Chest pressure Reason Comments [facility] Reason Comments Orders Reason Comments [facility] Reason Comments Medication Question Reason Comments Toothache Reason Comments Orders Appointment Reason Comments Follow Up needs lift chair, st [facility] lift chair order needs reworded Reason Onset Date Comments Refill Request 02/25/2024 Reason Comments Erroneous encounter-disregard Reason Comments Results fax form for lift chair Reason Comments Orders walker Reason Comments Follow Up Vertigo, ringing in ena ears Reason Comments Angel Rollinsor paperwork Reason Comments Medication Problem Reason Onset Date Comments Refill Request 09/08/2024 Reason Comments Vertigo Ringing In Ear(s) bilateral Specialty Diagnoses / Procedures Referred By Contac t Referred To Contact Diagnoses Other specified hearing loss, unspecified ear Procedures HEARING TEST/AUDIOGRAM COMPRE AUDIOMETRY THRESHOLD EVAL SP Doni Pritchett PA-C [address] [place] [address] Phone: tel: [facility] [address] [place] [address] Referral ID Status Reason Start Date Expiration Date V isits Requested Visits Authorized [id number] Closed Auto-Generate d Referral 07/19/2024 07/20/2025 1 1 Reason Comments Ringing In Ear(s) Constant bilateral r inging x years Specialty Diagnoses / Procedures Referred By Contac t Referred To Contact Ent - Otolaryngology Diagnoses Dizziness Tinnitus, bilateral Procedures OFFICE/OUTPATIENT NEW HIGH MDM 60 MINUTES Older, Angelika, LOULOU.[employer]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 [address] [place] [address] Phone: tel: fax: Referral ID Status Reason Start Date Expiration Date V isits Requested Visits Authorized [id number] Closed PCP Requested Referral 07/14/2024 07/14/2025 1 1 Care Teams (unrecognized sec tion and content) Nursing Administrator Relationship Specialty Start Date End Date Nigel Carrillo MD [address] [place] [address] PCP - General Internal Medicine 03/18/20 Nursing Administrator Relationship Specialty Start Date End Date Nigel Carrillo MD [address] [place], [place] [id number] PCP - General Internal Medicine 03/18/20 Nursing Administrator Relationship Specialty Start Date End Date Nigel Carrillo MD [address] [place] [address] PCP - General Internal Medicine 03/18/20 Nursing Administrator Relationship Specialty Start Date End Date Nigel Carrillo MD [address] [place] [address] PCP - General Internal Medicine 03/18/20 Nursing Administrator Relationship Specialty Start Date End Date Nigel Carrillo MD [address] [place] [address] PCP - General Internal Medicine 03/18/20 Nursing Administrator Relationship Specialty Start Date End Date Nigel Carrillo MD [address] [place] [address] PCP - General Internal Medicine 03/18/20 Nursing Administrator Relationship Specialty Start Date End Date Nigel Carrillo MD [address] [place] [address] PCP - General Internal Medicine 03/18/20 Nursing Administrator Relationship Specialty Start Date End Date Nigel Carrillo MD [address] [place] [address] PCP - General Internal Medicine 03/18/20 Nursing Administrator Relationship Specialty Start Date End Date Nigel Carrillo MD [address] [place] [address] PCP - General Internal Medicine 03/18/20 Nursing Administrator Relationship Specialty Start Date End Date Nigel Carrillo MD [address] [place] [address] PCP - General Internal Medicine 03/18/20 Nursing Administrator Relationship Specialty Start Date End Date Nigel Carrillo MD [address] [place] [address] PCP - General Internal Medicine 03/18/20 Nursing Administrator Relationship Specialty Start Date End Date Nigel Carrillo MD [address] [place] [address] PCP - General Internal Medicine 03/18/20 Nursing Administrator Relationship Specialty Start Date End Date Nigel Carrillo MD [address] [place] [address] PCP - General Internal Medicine 03/18/20 Nursing Administrator Relationship Specialty Start Date End Date Nigel Carrillo MD [address] [place] [address] PCP - General Internal Medicine 03/18/20 Nursing Administrator Relationship Specialty Start Date End Date Nigel Carrillo MD [address] [place] [address] PCP - General Internal Medicine 03/18/20 Nursing Administrator Relationship Specialty Start Date End Date Nigel Carrillo MD [address] [place] [address] PCP - General Internal Medicine 03/18/20 Nursing Administrator Relationship Specialty Start Date End Date Nigel Carrillo MD [address] [place] [address] PCP - General Internal Medicine 03/18/20 Nursing Administrator Relationship Specialty Start Date End Date Nigel Carrillo MD [address] [place] [address] PCP - General Internal Medicine 03/18/20 Nursing Administrator Relationship Specialty Start Date End Date Nigel Carrillo MD [address] [place] [address] PCP - General Internal Medicine 03/18/20 Nursing Administrator Relationship Specialty Start Date End Date Nigel Carrillo MD [address] [place] [address] PCP - General Internal Medicine 03/18/20 Nursing Administrator Relationship Specialty Start Date End Date Nigel Carrillo MD [address] [place] [address] PCP - General Internal Medicine 03/18/20 Nursing Administrator Relationship Specialty Start Date End Date Nigel Carrillo MD [address] [place] [address] PCP - General Internal Medicine 03/18/20 Nursing Administrator Relationship Specialty Start Date End Date Nigel Carrillo MD [address] [place] [address] PCP - General Internal Medicine 03/18/20 Nursing Administrator Relationship Specialty Start Date End Date Nigel Carrillo MD [address] [place] [address] PCP - General Internal Medicine 03/18/20 Nursing Administrator Relationship Specialty Start Date End Date Nigel Carrillo MD [address] [place] [address] PCP - General Internal Medicine 03/18/20 Nursing Administrator Relationship Specialty Start Date End Date Nigel Carrillo MD [address] [place] [address] PCP - General Internal Medicine 03/18/20 Team Status: Active Member Role Status Dates [facility] Family Provider Active Dr. Nigel Carrillo MD Primary Care Provider Active Team Status: Inactive Member Role Status Dates Dr. Nigel Carrillo MD Primary Care Provider, Referring Provider Active Dr. Ryne Oliveira MD Attending Provider Active Team Status: Inactive Member Role Status Dates Dr. Nigel Carrillo MD Primary Care Provider Active Dr. Perez Boggs DO Emergency Provider Active Nursing Administrator Relationship Specialty Start Date End Date Nigel Carrillo MD [address] [place] [address] PCP - General Internal Medicine 03/18/20 Nursing Administrator Relationship Specialty Start Date End Date Nigel Carrillo MD [address] [place] [address] PCP - General Internal Medicine 03/18/20 Nursing Administrator Relationship Specialty Start Date End Date Nigel Carrillo MD [address] [place] [address] PCP - General Internal Medicine 03/18/20 Nursing Administrator Relationship Specialty Start Date End Date Nigel Carrillo MD [address] [place] [address] PCP - General Internal Medicine 03/18/20 Nursing Administrator Relationship Specialty Start Date End Date Nigel Carrillo MD [address] [place] [address] PCP - General Internal Medicine 03/18/20 Nursing Administrator Relationship Specialty Start Date End Date Nigel Carrillo MD [address] [place] [address] PCP - General Internal Medicine 03/18/20 Nursing Administrator Relationship Specialty Start Date End Date Nigel Carrillo MD [address] [place] [address] PCP - General Internal Medicine 03/18/20 Nursing Administrator Relationship Specialty Start Date End Date Nigel Carrillo MD [address] [place] [address] PCP - General Internal Medicine 03/18/20 Delmi Elder PA-C [address] [place] [address] [employer] Specialist Family Medicine 01/16/24 Angelika Wilson APRN.D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 [address] [place] [address] [employer] Specialist Internal Medicine 01/16/24 Trena Knight PA-C [address] [place] [address] [employer] Specialist Family Medicine 01/16/24 Nursing Administrator Relationship Specialty Start Date End Date Nigel Carrillo MD [address] [place] [address] PCP - General Internal Medicine 03/18/20 Delmi Elder PA-C [address] [place] [place] [id number] [employer] Specialist Family Medicine 01/16/24 Angelika Wilson APRN.D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 [address] [place] [address] [employer] Specialist Internal Medicine 01/16/24 Trena Knight PA-C [address] [place] [address] [facility] 01/16/24 Nursing Administrator Relationship Specialty Start Date End Date Nigel Carrillo MD [address] [place] [address] PCP - General Internal Medicine 03/18/20 Delmi Elder PA-C [address] [place] [address] [employer] Specialist Family Medicine 01/16/24 Angelika Wilson APRN.D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 [address] [place] [address] [employer] Specialist Internal Medicine 01/16/24 Trena Knight PA-C [address] [place] [address] [employer] Specialist Family Medicine 01/16/24 Nursing Administrator Relationship Specialty Start Date End Date Nigel Carrillo MD [address] [place] [address] PCP - General Internal Medicine 03/18/20 Delmi Elder PA-C [address] [place] [id number] [employer] Specialist Family Medicine 01/16/24 Angelika Wilson APRN.D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 [address] [place] [address] [employer] Specialist Internal Medicine 01/16/24 Trena Knight PA-C [address] [place] [address] [employer] Specialist Family Medicine 01/16/24 Nursing Administrator Relationship Specialty Start Date End Date Nigel Carrillo MD [address] [place] [address] PCP - General Internal Medicine 03/18/20 Angelika Wilson APRN.D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 [address] [place] [address] [employer] Specialist Internal Medicine 01/16/24 Nursing Administrator Relationship Specialty Start Date End Date Nigel Carrillo MD [address] [place] [address] PCP - General Internal Medicine 03/18/20 Angelika Wilson APRN.D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 [address] [place] [address] [employer] Specialist Internal Medicine 01/16/24 Nursing Administrator Relationship Specialty Start Date End Date Nigel Carrillo MD [address] [place] [address] PCP - General Internal Medicine 03/18/20 Angelika Wilson APRN.D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 [address] [place] [address] [employer] Specialist Internal Medicine 01/16/24 Nursing Administrator Relationship Specialty Start Date End Date Nigel Carrillo MD [address] [place] [address] PCP - General Internal Medicine 03/18/20 Angelika Wilson APRN.D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 [address] [place] [address] [employer] Specialist Internal Medicine 01/16/24 Nursing Administrator Relationship Specialty Start Date End Date Nigel Carrillo MD [address] [facility] [place] [address] PCP - General Internal Medicine 03/18/20 Angelika Wilson APRN.D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 [address] [place] [address] [employer] Specialist Internal Medicine 01/16/24 Nursing Administrator Relationship Specialty Start Date End Date Nigel Carrillo MD [address] [place] [address] PCP - General Internal Medicine 03/18/20 Angelika Wilson, 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 [address] [place] [address] [employer] Specialist Internal Medicine 01/16/24 Nursing Administrator Relationship Specialty Start Date End Date Nigel Carrillo MD [address] [place] [address] PCP - General Internal Medicine 03/18/20 Katie, Angeliak, 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 [address] [place] [address] [employer] Specialist Internal Medicine 01/16/24 Nursing Administrator Relationship Specialty Start Date End Date Nigel Carrillo MD [address] [place] [address] PCP - General Internal Medicine 03/18/20 Angelika Wilson, 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 [address] [place] [address] [employer] Intelligence Specialist Internal Medicine 01/16/24 Nursing Administrator Relationship Specialty Start Date End Date Nigel Carrillo MD [address] [place] [address] PCP - General Internal Medicine 03/18/20 Katie, Angelika, 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 [address] [place] [address] [employer] Intelligence Specialist Internal Medicine 01/16/24 Nursing Administrator Relationship Specialty Start Date End Date Nigel Carrillo MD [address] [place] [address] PCP - General Internal Medicine 03/18/20 Angelika Wilson APRN.D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 [address] [place] [address] [facility] Internal Medicine 01/16/24 Nursing Administrator Relationship Specialty Start Date End Date Nigel Carrillo MD [address] [place], [place] [address] PCP - General Internal Medicine 03/18/20 Angelika Wilson APRN.D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 [address] [place], [place] [address] [facility] Internal Medicine 01/16/24 Goals (unrecognized section and content) Goals may be documented in a n alternate sectionGoals may be documented in an alternate section FOR RECORDS PERTAINING TO PATIENTS WHO ARE OR HAVE BEEN ENROLLED IN A CHEMICAL DEPENDENCY/SUBSTANCEABUSE PROGRAM, SOME INFORMATION MAY BE OMITTED. This clinical summary was aggregated from multiple sources. Caution should be exercised in using it in the provision of clinical care. This summary normalizes information from multiple sources, and as a consequence, information in this document may materially change the coding, format and clinical context of patient data. In addition, data may be omitted in some cases. CLINICAL DECISIONS SHOULD BE BASED ON THE PRIMARY CLINICAL RECORDS. [facility]. provides no warranty or guarantee of the accuracy or completeness of information in this document.
--- NOTE | 2024-12-29 20:37 | CT_ITS ---
PROCEDURE: CT ABDOMEN/PELVIS W IV CONT ONLY 12/29/2024 REASON FOR EXAM: RUQ ABDOMINAL PAIN. CHOLECYSTECTOMY HISTORY. TECHNIQUE: Procedure Code: [id number] Modality: CT Procedure: ABDOMEN/PELVIS W IV CONT ONLY Coronal and Sagittal reconstruction series were provided. CONTRAST: Isovue 370 VOLUME: 97 mL One or more dose reduction techniques were used (e.g., Automated exposure control, adjustment of the mA and/or kV according to patient size, use of iterative reconstruction technique. RADIATION DOSE SUMMARY: DLP: 1333.95 mGycm COMPARISON: 04/09/2021 FINDINGS: Lung bases: Clear. Liver: Mild hepatic steatosis. Tiny cyst in the left hepatic lobe, unchanged. Gallbladder: Surgically absent. No biliary ductal dilatation. Spleen: Unremarkable. Pancreas: Generalized fatty replacement, otherwise unremarkable. Adrenals: Unremarkable. Kidneys: Unremarkable. No urolithiasis or hydronephrosis. Bladder: Unremarkable. Reproductive Organs: Unremarkable uterus and adnexae. Bowel: No evidence of obstruction or active inflammatory process. Appendix is not discretely visualized but there are no pericecal inflammatory changes. Lymph nodes: No enlarged abdominopelvic lymph nodes. Vasculature: Normal caliber abdominal aorta. Mild atherosclerotic calcifications. Peritoneum / Retroperitoneum: No ascites or free air. Bones: Mild multilevel degenerative changes of the spine. CT/Abdomen/Pelvis W IV Cont ONLY IMPRESSION: No acute or active inflammatory intra-abdominal pathology. Reading Location: [id number]
--- NOTE | 2024-12-29 20:39 | ED.VIS.GI ---
HPI HPI - GI History of Present Illness Chief Complaint: Abd Pain Informant: patient Abdominal Pain/Flank Pain Onset: Today and Yesterday Context: Gradual Onset Timing: Continuous Quality: Aching Location: RUQ Current Severity: Mild Maximum Severity: Moderate Worsened by: Nothing Relieved by: Nothing Nausea/Vomiting/Emesis GI Symptom: Negative for Nausea or Vomiting Diarrhea/Melena/Hematochezia GI Symptom: Negative for Diarrhea, Melena or Hematochezia Associated Symptoms Associated Symptoms: Negative for Dysuria, Frequency, Hematuria or Urgency Narrative Narrative: 64-year-old female history of irritable bowel prior cholecystectomy prior kidney stones. States that she had a right upper abdominal pain since yesterday morning around 4 AM that awoke her from sleep. She lives in assisted living. They obtained a KUB told her she might be constipated. Treated with MiraLAX. Since she has been having bowel movements she does not believe his constipation and that did not change the pain. Denies any other symptoms. No dysuria. No fever. No vomiting. No melena. No chest pain or shortness of breath. No dysuria. No back pain. Describes the pain as sharp in the right upper quadrant. Nothing particularly changes the pain. Prior similar symptoms: No Recent Illness/Hospitalization: No PFSH PFSH Medical History Insomnia Abnormal EKG Palpitations Wears glasses Post-menopausal Thyroid disease Ambulates with cane Arthritis Back pain Syncope History of IBS Sleep apnea Shortness of breath on exertion Chronic cough Septic shock Vertigo GERD (gastroesophageal reflux disease) Non-smoker Hypertension Chest pain Vision loss of right eye Vision loss of left eye Osteoarthritis Chronic pain Obesity IBS (irritable bowel syndrome) Hiatal hernia FREEMAN (obstructive sleep apnea) Migraines Sciatica Depression Anxiety Sciatic leg pain Bone spur of foot Hypothyroid Kidney stones Home Medications ?Medication ?Instructions ?Recorded ?Last Taken ?Type citalopram 20 mg tablet 20 mg PO QHS depression 06/03/16 04/08/21 History ergocalciferol (vitamin D2) 1,250 1,250 mcg PO CABRERA SUPPLEMENT 04/09/21 Unknown History mcg (50,000 unit) capsule levothyroxine 88 mcg tablet 88 mcg PO DAILY THYROID 04/09/21 04/25/21 History 88 mcg acetaminophen 500 mg tablet 1,000 mg PO TID PAIN 01/22/23 Unknown History gabapentin 400 mg capsule 400 mg PO TIDWMEAL 01/22/23 Unknown History meclizine 25 mg tablet 25 mg PO TID PRN Vertigo 01/22/23 Unknown History peg 400-propylene glycol 0.4 %-0.3 1 drp ophthalmic (eye) BID PRN 01/22/23 Unknown History % eye drops (Systane Ultra) trazodone 50 mg tablet 50 mg PO QHS 01/22/23 Unknown History Allergy/AdvReac Type Severity Reaction Status Date / Time codeine AdvReac Itching Verified 12/29/24 19:10 oxycodone AdvReac Itching Verified 12/29/24 19:10 Family History Father Heart disease Diabetes Mother Cancer Diabetes Macular degeneration Surgical History History of cystoscopy Hx of foot surgery History of cholecystectomy History of lithotripsy Social History Smoking Status: Never smoker alcohol intake: never substance use type: does not use caffeine: Yes Type: carbonated beverages and tea ROS ROS ED ROS Narrative Right upper quadrant abdominal pain. No other symptoms. Constitutional Constitutional ED: Denies chills or fever(s) ENT ENT ED: Denies ear pain Cardiovascular Cardiovascular: Denies chest pain Respiratory/Chest Respiratory/Chest: Denies cough or dyspnea Gastrointestinal Gastrointestinal: Reports abdominal pain; Denies constipation, diarrhea, melena, nausea or vomiting Genitourinary Genitourinary ED: Denies dysuria or hematuria Musculoskeletal Musculoskeletal: Denies arthralgias Integumentary Denies abscess Neurologic Neurologic: Denies headache(s) Psychiatric Psychiatric: Denies anxiety Endocrine Endocrinology: Denies polydipsia Hematologic/Lymphatic Hematologic/Lymphatic: Denies easy bleeding Allergic/Immunologic Allergic/Immunologic ED: Denies mouth swelling, tongue swelling or urticaria EXAM Physical Exam Narrative Exam Narrative: Well-appearing 64-year-old female. Vital signs stable afebrile. She does not look septic or toxic. She is in no distress. H EENT exam pupils round react light. Moist mucous membranes. Neck nontender. No JVD. No lymphadenopathy. Lungs clear to auscultation bilaterally. Heart regular rhythm no murmur. Chest wall ribs completely nontender. Abdomen is soft minimal right upper quadrant tenderness. No rebound guarding rigidity. No Abraham sign. Right lower quadrant left side completely nontender. No pulsatile mass. No rashes. No signs of trauma. Back nontender. No CVA tenderness. Moving all 4 extremities. Nontender. Normal strength. She is awake and alert. Answer questions following commands. Const Vital Signs: 12/29/24 19:11 12/29/24 21:10 12/29/24 23:00 Temperature 97.3 F L Temperature Source Temporal Pulse Rate 75 90 74 Respiratory Rate 18 Blood Pressure 114/92 H 140/73 H 136/70 H Blood Pressure Mean 99 95 92 Pulse Ox 98 94 100 Oxygen Delivery Method Room Air Room Air Room Air MDM MDM MDM Narrative Medical decision making narrative: 64-year-old female right upper quadrant abdominal pain since yesterday morning. Prior cholecystectomy years ago. No urinary symptoms. No constipation or diarrhea. No fever or chills. No weight change. CAT scan and labs of the obtained. Repeat exam around 11:21 PM. Patient is doing well. Abdomen is benign. Nondistended no peritoneal signs. She and I discussed all of her test results of her basically unremarkable including her CAT scan of her abdomen. She will be discharged home abdominal pain uncertain etiology. To follow-up with her primary care provider. She is comfortable to plan. She knows return if worse. History & Record Review Discussion w/independent historian: Patient Additional record(s) reviewed:: Prior inpatient record, Prior outpatient record, Prior ED visit and Prior labs Lab Data Attestation: I reviewed the patient's lab results. Lab results narrative: CBC shows a white count of 6 H&H of 15 and 46. Electrolytes show a gap of 12. BUN and creatinine of 21 and 1.1. Glucose 103. Liver enzymes unremarkable. AST 36. Lipase normal at 27. Urinalysis shows no nitrates. No white or red cells. Only rare bacteria. CAT scan shows chronic changes. Prior cholecystectomy. No acute process. Read by the radiologist. Labs: Laboratory Results - last 24 hr 12/29/24 12/29/24 20:08 20:14 WBC 6.1 RBC 4.96 Hgb 15.3 H Hct 46.0 MCV 92.7 MCH 30.8 MCHC 33.3 RDW Std Deviation 43.9 RDW Coeff of Geno 12.9 Plt Count TNP MPV TNP Immature Gran % (Auto) 0.500 Neut % (Auto) 56.1 Lymph % (Auto) 25.9 Ponce % (Auto) 12.7 H Eos % (Auto) 4.1 Baso % (Auto) 0.7 Absolute Neuts (auto) 3.4 Absolute Lymphs (auto) 1.57 Nucleated RBC % 0 Differential Comment SCANNED Platelet Estimate ADEQUATE Sodium 135 Potassium 4.9 Chloride 98 Carbon Dioxide 25.6 Anion Gap 12 BUN 21 H Creatinine 1.17 Estim Creat Clear Calc 70.43 Est GFR (MDRD) Non-Af 52 L BUN/Creatinine Ratio 18.0 Glucose 103 H Calcium 9.6 Total Bilirubin 0.52 AST 36 H ALT 21 Alkaline Phosphatase 75 Total Protein 8.6 H Albumin 4.1 Globulin 4.5 H Albumin/Globulin Ratio 0.9 Lipase 27 Urine Color Yellow Urine Clarity Clear Urine pH 8.0 Ur Specific [place] 1.015 Urine Protein 15 H Urine Glucose (UA) Normal Urine Ketones Negative Urine Occult Blood 10 H Urine Nitrite Negative Urine Bilirubin Negative Urine Urobilinogen 1 H Ur Leukocyte Esterase 25 H Urine RBC 0-5 SEEN Urine WBC 0-5 SEEN Ur Squamous Epith Cells 0-5 SEEN Urine Bacteria RARE Urine Mucus 0 SEEN Radiography Diagnostic Testing: Clinical Impression(s) from Imaging Studies Abdomen/Pelvis CT 12/29/24 20:37 IMPRESSION: No acute or active inflammatory intra-abdominal pathology. Reading Location: [facility] Discharge Plan Triage Chief Complaint: Abd Pain ED Provider: Bertrand Mullen Dx/Rx/DC Orders Clinical Impression: Abdominal pain, History of IBS, History of cholecystectomy Instructions: Abdominal Pain Prescriptions: No Action trazodone 50 mg tablet 50 mg PO QHS Patient Comments: Take 1 tablet by mouth daily at bedtime. Systane Ultra 0.4-0.3 % drops 1 drp ophthalmic (eye) BID PRN Patient Comments: Use 1 Drop in both eyes as needed. citalopram 20 MG tablet 20 mg PO QHS levothyroxine 88 mcg tablet 88 mcg PO DAILY Patient Comments: Take 1 tablet by mouth once daily. ergocalciferol (vitamin D2) 1,250 mcg (50,000 unit) capsule 1,250 mcg PO CABRERA Patient Comments: Take 1 capsule by mouth one time a week. gabapentin 400 mg capsule 400 mg PO TIDWMEAL acetaminophen 500 mg tablet 1,000 mg PO TID Patient Comments: Take 1-2 tablets by mouth three times daily. meclizine 25 mg tablet 25 mg PO TID PRN (Reason: Vertigo) Primary Care Provider: Gayathri Garcia Referrals: Gayathri Garcia MD [Primary Care Provider, Geriatrics] - 3-5 Days if not improving Activity Restrictions/Additional Instructions: Your blood work and CAT scan and urine all look good tonight. No acute cause for your pain. I do not think it is secondary to constipation. Follow-up your primary care provider if not improving. Return to emergency department if worse. Print Language: Turkmen Disposition Disposition: Home, Self Care
[2024-12-29 20:44] VITALS: BMI 47.3
[2024-12-29 20:49] LABS: Mucous, Urine 0 SEEN /hpf (<or=2+)
[2024-12-29 20:55] LABS: Hematocrit 46.0 % (37-47); Hemoglobin 15.3 g/dL (12.0-15.0); Immature Granulocytes Count 0.030 X10^3/uL (0.0-0.0); Mean Corp Hgb Conc 33.3 g/dL (32-36); Mean Corpuscular Volume 92.7 fL (81-99); NRBC Flagged by Analyzer 0 % (0-5); POSITIVE COUNT YES; RBC Distribution Width CV 12.9 % (11.6-14.6); RBC Distribution Width SD 43.9 fl (35.1-43.9); Red Blood Count 4.96 M/mm3 (4.2-5.4); White Blood Count 6.1 K/mm3 (4.4-11.0)
[2024-12-29 21:05] LABS: Color, Urine Yellow (Yellow); Glucose, Dipstick Normal (Normal); Ketone-Dipstick Negative (Negative); Leukocyte Esterase-Dipstick 25 /ul (Negative); Nitrite-Dipstick Negative (Negative); Occult Blood-Urine 10 /ul (Negative); Protein-Dipstick 15 mg/dl (Negative); Specific Gravity, Urine 1.015 (1.002-1.030); Urine Bilirubin Dipstick Negative (Negative)
[2024-12-29 21:07] LABS: Differential Indicated SCAN CRITERIA MET
[2024-12-29 21:10] VITALS: BP 140/73; PULSE 90; O2SAT 94
[2024-12-29 21:15] LABS: Lipase 27 U/L (13-75)
[2024-12-29 21:16] LABS: AST(SGOT) 36 U/L (<=31); Alanine Aminotransfer ALT/SGPT 21 U/L (<=34); Albumin, Serum 4.1 g/dL (3.4-4.8); Alkaline Phosphatase 75 U/L (35-104); Anion Gap 12 (5-15); BUN 21 mg/dL (4-19); BUN/Creat Ratio 18.0 RATIO (10-20); Calcium,Total 9.6 mg/dL (7.6-11.0); Carbon Dioxide 25.6 mmol/L (21.0-32.0); Chloride 98 mmol/L (98-108); Estimated Creatinine Clearance 70.43 ml/min (50-250); Globulin 4.5 g/dL (2.2-4.2); Glucose 103 mg/dL (70-99); Potassium 4.9 mmol/L (3.3-5.1)
[2024-12-29 22:20] LABS: Differential Comment SCANNED
[2024-12-29 22:39] LABS: Red Blood Cells-Urine 0-5 SEEN /hpf (0-5); Squamous Epithelial Cells - UA 0-5 SEEN /hpf (5-10)
[2024-12-29 23:00] VITALS: BP 136/70; PULSE 74; O2SAT 100
[2024-12-29 23:30] VITALS: BP 136/70; PULSE 74; RESP 18; TEMP 36.3; O2SAT 100
== END 2024-12-29 23:34 | disposition home or self-care (01) ==
PROVIDERS: Emergency Provider Emergency Medicine; PCP Internal Medicine; Visit Provider Emergency Medicine
DX: R10.11 Right upper quadrant pain (principal); I10 Essential (primary) hypertension; Z90.49 Acquired absence of other specified parts of digestive tract; Z86.39 Personal history of other endocrine, nutritional and metabolic disease; F32.A Depression, unspecified; Z79.899 Other long term (current) drug therapy; E03.9 Hypothyroidism, unspecified; Z79.890 Hormone replacement therapy
CPT/HCPCS: 74177; 80053; 81001; 83690; 85025; 96374; 96375; 99285; Q9967; A4216; J2405

== ENCOUNTER → 2025-01-01 | Outpatient (REF) | payer MEDICARE, MEDICAID, SELFPAY ==
--- OUTSIDE RECORDS SUMMARY | 2025-01-01 03:35 | XMS RPT_ITS | CCD ---
Author Organization [facility] Care Team Providers Care Second Hand Name Role Phone Nigel Carrillo MD Primary Care Provider Dr. Nigel Carrillo Primary Care Provider Dr. Nigel Carrillo Referring Provider Dr. Ryne Oliveira Attending Provider Nigel Carrillo MD Primary Care Provider NBA CACERES Attending Unavailable GANTA, NIGEL Primary Care Unavailable OLDER, ANGELIKA Referring Unavailable Nigel Carrillo MD Primary Care Provider Unavailable Primary Care Provider Unavailabl e Delmi Elder PA-C Unavailable Older PRINT LINE INSPECTOR.FURNISHINGS CONSERVATOR, Angelika Unavailable Trena Knight PA-C Unavailable Gayathri Desai Attending [...] Primary Care Unavailable OLDER, ANGELIKA Attending Unavailable [facility] Primary Care Unavailable Allergies Allergy Classification Reported Allergen(s) Allergy Type Date of Onset Reaction(s) Facility (20 sources) Codeine; Translations: [CODEINE] Drug Allergy 1 Itching [facility] (20 sources) oxyCODONE; Translations: [OXYCODONE] Drug Allergy 9 Itching [facility] (20 sources) Amoxicillin / Clavulanate; Translations: [AMOXICILLIN-POT CLAVULANATE] Drug Allergy 4 GI Upset [facility] (20 sources) tiZANidine; Translations: [TIZANIDINE] Drug Allergy 4 Other: See Comments [facility] (1 source) Codeine Drug Allergy 4 [facility] (1 source) oxyCODONE Drug Allergy 4 [facility] Medications Current Medications Medication Drug Class(es) [...] Comment on above: Take 1 capsule by [facility] one time a week. fluticasone propionate 0.05 [...] Comment on above: Take 1 tablet by [facility] every 8 hours as needed (muscle [...] (10 sources) Patient encounter status; Translations: [Other roasterman (current) drug therapy] Episodic Other circulatory disease [...] CNOV Office Visit (OTOLST ) BURRELLJILLIAN EPPS ([id number]) 1960 F Date Time Provider Department 10/24/24 2:40 PM DONI CORONADO During your visit today, we recorded the following information about you: Doni Coronado PA-C 10/24/2024 2:57 PM Signed [facility] [place] [facility] NOTE CC: Jillian Pulliamton is a [...] bilateral, for years. Patient describes tinnitus as "like air blowing through my ears" "white noise," and occasional ringing. Patient denies pulsatile tinnitus. With regards to hearing, patient denies changes in hearing or concern for hearing loss. Patient denies history of ear infections, PE tubes, previous ear surgeries. 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 Patient endorses family history of hearing loss, paternal grandmother and father. Patient also reports 10+ years of dizziness, vertigo. Patient initially assumed related to anxiety and depression, controlled with citalopram. Patient describes "bouts" of room-spinning vertigo, nausea typically without precipitating events and vary in frequency, duration, and intensity. Patient recalls worst episode while watching NASCAR on large TV and rocking on chair triggered severe vertigo, nausea, vomiting. Patient reports since February 2024, onset of lightheaded "float" sensation different than above symptoms. Patient denies [...] evaluation of middle ear function. CPT code: 86046 RIGHT EAR: Normal ME function. LEFT EAR: Normal ME function. ACOUSTIC REFLEXES Description of procedure: This test is an objective measure of auditory and facial nerve pathways. CPT code: 04363, 40711 RIGHT EAR PROBE EAR: (ipsi right stimulus ear; contralateral left stimulus ear): Acoustic Reflex Pattern Did not test. Acoustic Reflex Decay (left stimulus ear): Did not test. LEFT EAR PROBE EAR: (ipsi left stimulus ear; contralateral right stimulus ear): Acoustic Reflex Pattern Did not test. Acoust (more content not included)... Normal [facility] Office Visit (OTAUST ) BURRELLJILLIAN ([id number]) 1960 F Date Time Provider Department 10/24/24 1:30 PM RUPALI MERRITT During your visit today, we recorded the following information about you: Rupali Merritt AUD 10/24/2024 1:58 PM Signed [facility] [place] AUDIOLOGIC EVALUATION REPORT Name: Jillian Pulliamton [facility]#: [id number] Date of Service: 10/24/2024 Date of : 1960 Age: [age] year old Referred by: Doni Coronado PA-C [id number] [id number] Referred for: Evaluation of suspected change in hearing, tinnitus, or balance. Referral documented: In an order in [facility]. Patient's major complaints: Tinnitus in both ears, Dizziness/vertigo/imbal jenae Jillian Burrell, a 64 year old female, [...] Denied. 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 CPT code: 63317 RIGHT EAR: Normal ME function. LEFT EAR: Normal ME function. ACOUSTIC REFLEXES Description of procedure: This test is an objective measure of auditory and facial nerve pathways. CPT code: 51027, 90988 RIGHT EAR PROBE EAR: (ipsi right stimulus [...] conduction and speech recognition testing. CPT code: 53822 RIGHT EAR: Hearing Sensitivity: Normal hearing from 250-500 Hz sloping to a mild sensorineural hearing loss from 1257-1262 Hz with a moderate unspecified loss at [...] to a mild sensorineural hearing loss from 6563-3029 Hz with a moderate unspecified loss at [...] a (more content not included)... Normal [facility] HEARING TEST/AUDIOGRAMon -2024 [facility] CBC W/Diff, Automatedon Absolute Lymph 2.29 X10 3/uL Normal 0.83-4.51 [facility] Comment on above: Order Comment: 112 Performed By: #### L 500.4100, L100.0100, L501.9520, L500.4050, L503.0106, L506.1001 #### [facility] [address] [place], [address] Absolute Neut 1.4 X10 3/uL Low 2.0-7.7 [facility] Comment on above: Order Comment: 112 Performed By: #### L 500.4100, L100.0100, L501.9520, L500.4050, L503.0106, L506.1001 #### [facility] [address] [place], [address] Basophils/100 WBC (Bld) 0.9 % Normal 0-1 [facility] Comment on above: Order Comment: 112 Performed By: #### L 500.4100, L100.0100, L501.9520, L500.4050, L503.0106, L506.1001 #### [facility] [address] [place], [address] Eosinophils/100 WBC (Bld) 4.4 % Normal 0-5 [facility] Comment on above: Order Comment: 112 Performed By: #### L 500.4100, L100.0100, L501.9520, L500.4050, L503.0106, L506.1001 #### [facility] [address] [place], [address] Erythrocyte distribution width (RBC) [Ratio] 12.6 % Normal 11.6-14.6 [facility] Comment on above: Order Comment: 112 Performed By: #### L 500.4100, L100.0100, L501.9520, L500.4050, L503.0106, L506.1001 #### [facility] [address] [place], [address] Hematocrit (Bld) [Volume fraction] 39.5 % Normal 37-47 [facility] Comment on above: Order Comment: 112 Performed By: #### L 500.4100, L100.0100, L501.9520, L500.4050, L503.0106, L506.1001 #### [facility] [address] [place], [address] Hemoglobin (Bld) [Mass/Vol] 13.0 g/dL Normal 12.0-15.0 [facility] Comment on above: Order Comment: 112 Performed By: #### L 500.4100, L100.0100, L501.9520, L500.4050, L503.0106, L506.1001 #### [facility] [address] [place], [address] IG% 0.700 Normal 0.0-0.9 [facility] Comment on above: Order Comment: 112 Result Comment: IG% - Immature Granulocytes (promyelocytes, myelocytes and metamyelocytes) > 1% indicates that a LEFT SHIFT is Present. Performed By: #### L 500.4100, L100.0100, L501.9520, L500.4050, L503.0106, L506.1001 #### [facility] [address] [place], [address] Lymphocytes/100 WBC (Bld) 52.5 % High 19-41 [facility] Comment on above: Order Comment: 112 Performed By: #### L 500.4100, L100.0100, L501.9520, L500.4050, L503.0106, L506.1001 #### [facility] [address] [place], [address] MCH (RBC) [Entitic mass] 30.4 pg Normal 27.0-32.0 [facility] Comment on above: Order Comment: 112 Performed By: #### L 500.4100, L100.0100, L501.9520, L500.4050, L503.0106, L506.1001 #### [facility] [address] [place], [address] MCHC (RBC) [Mass/Vol] 32.9 g/dL Normal 32-36 [facility] Comment on above: Order Comment: 112 Performed By: #### L 500.4100, L100.0100, L501.9520, L500.4050, L503.0106, L506.1001 #### [facility] [address] [place], [address] MCV (RBC) [Entitic vol] 92.3 fL Normal 81-99 [facility] Comment on above: Order Comment: 112 Performed By: #### L 500.4100, L100.0100, L501.9520, L500.4050, L503.0106, L506.1001 #### [facility] [address] [place], [address] Monocytes/100 WBC (Bld) 9.6 % Normal 0-10 [facility] Comment on above: Order Comment: 112 Performed By: #### L 500.4100, L100.0100, L501.9520, L500.4050, L503.0106, L506.1001 #### [facility] [address] [place], [address] Neutrophils/100 WBC (Bld) 31.9 % Low 47-70 [facility] Comment on above: Order Comment: 112 Performed By: #### L 500.4100, L100.0100, L501.9520, L500.4050, L503.0106, L506.1001 #### [facility] [address] [place], [address] Nucleated RBC (Bld) [#/Vol] 0 10*3/uL Normal 0-5 [facility] Comment on above: Order Comment: 112 Performed By: #### L 500.4100, L100.0100, L501.9520, L500.4050, L503.0106, L506.1001 #### [facility] [address] [place], [address] Platelet mean volume (Bld) [Entitic vol] 9.9 fL Normal 6.2-12.0 [facility] Comment on above: Order Comment: 112 Performed By: #### L 500.4100, L100.0100, L501.9520, L500.4050, L503.0106, L506.1001 #### [facility] [address] [place], [address] Platelets (Bld) [#/Vol] 198 10*3/uL Normal 150-450 [facility] Comment on above: Order Comment: 112 Performed By: #### L 500.4100, L100.0100, L501.9520, L500.4050, L503.0106, L506.1001 #### [facility] [address] [place], [address] RBC (Bld) [#/Vol] 4.28 10*6/uL Normal 4.2-5.4 [facility] Comment on above: Order Comment: 112 Performed By: #### L 500.4100, L100.0100, L501.9520, L500.4050, L503.0106, L506.1001 #### [facility] [address] [place], [address] RDW SD 42.5 fl Normal 35.1-43.9 [facility] Comment on above: Order Comment: 112 Performed By: #### L 500.4100, L100.0100, L501.9520, L500.4050, L503.0106, L506.1001 #### [facility] [address] [place], [address] WBC (Bld) [#/Vol] 4.4 10*3/uL Normal 4.4-11.0 [facility] Comment on above: Order Comment: 112 Performed By: #### L 500.4100, L100.0100, L501.9520, L500.4050, L503.0106, L506.1001 #### [facility] [address] [place], [address] Comprehensive Metabolic Prof ilon 10-11-2024 Albumin [Mass/Vol] 3.6 g/dL Normal 3.4-4.8 [facility] Comment on above: Order Comment: 112 Performed By: #### L 500.4100, L100.0100, L501.9520, L500.4050, L503.0106, L506.1001 #### [facility] [address] [place], [address] Albumin/Globulin [Mass ratio] 1.1 {ratio} Normal 0.9-2.4 [facility] Comment on above: Order Comment: 112 Performed By: #### L 500.4100, L100.0100, L501.9520, L500.4050, L503.0106, L506.1001 #### [facility] [address] [place], [address] ALK PHOS 50 U/L Normal 35-104 [facility] Comment on above: Order Comment: 112 Performed By: #### L 500.4100, L100.0100, L501.9520, L500.4050, L503.0106, L506.1001 #### [facility] [address] [place], [address] ALT [Catalytic activity/Vol] 13 U/L Normal <=34 [facility] Comment on above: Order Comment: 112 Performed By: #### L 500.4100, L100.0100, L501.9520, L500.4050, L503.0106, L506.1001 #### [facility] [address] [place], [address] AST [Catalytic activity/Vol] 17 U/L Normal <=31 [facility] Comment on above: Order Comment: 112 Performed By: #### L 500.4100, L100.0100, L501.9520, L500.4050, L503.0106, L506.1001 #### [facility] [address] [place], [address] Bilirubin [Mass/Vol] 0.38 mg/dL Normal 0.00-1.30 [facility] Comment on above: Order Comment: 112 Performed By: #### L 500.4100, L100.0100, L501.9520, L500.4050, L503.0106, L506.1001 #### [facility] [address] [place], [address] BUN/CRE 20.0 RATIO Normal 10-20 [facility] Comment on above: Order Comment: 112 Performed By: #### L 500.4100, L100.0100, L501.9520, L500.4050, L503.0106, L506.1001 #### [facility] [address] [place], [address] Calcium [Mass/Vol] 9.2 mg/dL Normal 7.6-11.0 [facility] Comment on above: Order Comment: 112 Performed By: #### L 500.4100, L100.0100, L501.9520, L500.4050, L503.0106, L506.1001 #### [facility] [address] [place], [address] Chloride [Moles/Vol] 103 mmol/L Normal 98-108 [facility] Comment on above: Order Comment: 112 Performed By: #### L 500.4100, L100.0100, L501.9520, L500.4050, L503.0106, L506.1001 #### [facility] [address] [place], [address] CO2 [Moles/Vol] 24.6 mmol/L Normal 21.0-32.0 [facility] Comment on above: Order Comment: 112 Performed By: #### L 500.4100, L100.0100, L501.9520, L500.4050, L503.0106, L506.1001 #### [facility] [address] [place], [address] Creatinine [Mass/Vol] 0.97 mg/dL Normal 0.70-1.20 [facility] Comment on above: Order Comment: 112 Performed By: #### L 500.4100, L100.0100, L501.9520, L500.4050, L503.0106, L506.1001 #### [facility] [address] [place], [address] GAP 9 Normal 5-15 [facility] Comment on above: Order Comment: 112 Performed By: #### L 500.4100, L100.0100, L501.9520, L500.4050, L503.0106, L506.1001 #### [facility] [address] [place], [address] GFR/1.73 sq M.predicted among non-blacks MDRD (S/P/Bld) [Vol rate/Area] 65 mL/min/{1.73_m2} Normal >60 [facility] Comment on above: Order Comment: 112 Result Comment: mL/m in/1.73m2 CKD-EPI Creatinine Equation (2020) Performed By: #### L 500.4100, L100.0100, L501.9520, L500.4050, L503.0106, L506.1001 #### [facility] [address] [place], [address] Globulin (S) [Mass/Vol] 3.2 g/dL Normal 2.2-4.2 [facility] Comment on above: Order Comment: 112 Performed By: #### L 500.4100, L100.0100, L501.9520, L500.4050, L503.0106, L506.1001 #### [facility] [address] [place], [address] Glucose [Mass/Vol] 108 mg/dL High 70-99 [facility] Comment on above: Order Comment: 112 Performed By: #### L 500.4100, L100.0100, L501.9520, L500.4050, L503.0106, L506.1001 #### [facility] [address] [place], [address] Potassium [Moles/Vol] 4.2 mmol/L Normal 3.3-5.1 [facility] Comment on above: Order Comment: 112 Performed By: #### L 500.4100, L100.0100, L501.9520, L500.4050, L503.0106, L506.1001 #### [facility] [address] [place], [address] Sodium [Moles/Vol] 137 mmol/L Normal 133-145 [facility] Comment on above: Order Comment: 112 Performed By: #### L 500.4100, L100.0100, L501.9520, L500.4050, L503.0106, L506.1001 #### [facility] [address] [place], [address] T PROT 6.8 g/dL Normal 5.9-8.4 [facility] Comment on above: Order Comment: 112 Performed By: #### L 500.4100, L100.0100, L501.9520, L500.4050, L503.0106, L506.1001 #### [facility] [address] [place], [address] Urea nitrogen [Mass/Vol] 20 mg/dL High 4-19 [facility] Comment on above: Order Comment: 112 Performed By: #### L 500.4100, L100.0100, L501.9520, L500.4050, L503.0106, L506.1001 #### [facility] [address] [place], [address] Lipid Profileon 10-11-2024 CHOL:HDL 4.92 Normal [facility] Comment on above: Order Comment: 112 Performed By: #### L 500.4100, L100.0100, L501.9520, L500.4050, L503.0106, L506.1001 #### [facility] [address] [place], [address] Cholesterol [Mass/Vol] 186 mg/dL Normal <=200 [facility] Comment on above: Order Comment: 112 Result Comment: Chol esterol level, Desirable <200 mg/dL Borderline high cholesterol 200-239 mg/dL High cholesterol >=240 mg/dL Recommendations of the NCEP Adult Treatment Panel for the following risk-cutoff thresholds for the [place] population. Performed By: #### L 500.4100, L100.0100, L501.9520, L500.4050, L503.0106, L506.1001 #### [facility] [address] [place], [address] Cholesterol in HDL [Mass/Vol] 38 mg/dL Low [facility] Comment on above: Order Comment: 112 Result Comment: Ame onal Cholesterol Education Program (NCEP) guidelines: <40 mg/dL: Low HDL-cholesterol (major risk factor for CHD) >= 60 mg/dL: High HDL-cholesterol (negative risk factor for CHD) HDL-cholesterol is affected by a number of factors, e.g. smoking, exercise, hormones, sex and age. Performed By: #### L 500.4100, L100.0100, L501.9520, L500.4050, L503.0106, L506.1001 #### [facility] [address] [place], [address] Cholesterol in LDL [Mass/Vol] 124 mg/dL Normal [facility] Comment on above: Order Comment: 112 Result Comment: Bord ahiraj=674-564 mg/dL Higher Akrn=216 mg/dL or greater Friedwald Equation for LDL-C Performed By: #### L 500.4100, L100.0100, L501.9520, L500.4050, L503.0106, L506.1001 #### [facility] [address] [place], [address] Cholesterol in VLDL [Mass/Vol] 25 mg/dL Normal 5-40 [facility] Comment on above: Order Comment: 112 Performed By: #### L 500.4100, L100.0100, L501.9520, L500.4050, L503.0106, L506.1001 #### [facility] [address] [place], [address] Triglyceride [Mass/Vol] 123 mg/dL Normal [facility] Comment on above: Order Comment: 112 Result Comment: The drugs N-Acetylcysteine and Metamizole may falsely depress this assay. Normal range: <150 mg/dL Borderline High: 150-199 mg/dL High: 200-499 mg/dL Very High: >500 mg/dL Performed By: #### L 500.4100, L100.0100, L501.9520, L500.4050, L503.0106, L506.1001 #### [facility] [address] [place], [address] Thyroid Stim Hormone (TSH)on 10-11-2024 TSH 2.380 uIU/mL Normal 0.300-4.200 [facility] Comment on above: Order Comment: 112 Performed By: #### L 500.4100, L100.0100, L501.9520, L500.4050, L503.0106, L506.1001 #### [facility] [address] [place], [address] Vitamin B12on 10-11-2024 Cobalamin (Vitamin B12) [Mass/Vol] 560 pg/mL Normal 180-914 [facility] Comment on above: Order Comment: 112 Performed By: #### L 500.4100, L100.0100, L501.9520, L500.4050, L503.0106, L506.1001 #### [facility] [address] [place], [address] Vitamin D,25 Hydroxyon 10-11 Vitamin D 25-OH 31.0 ng/mL Normal 30-100 [facility] Comment on above: Order Comment: 112 Result Comment: Dodie min D Status Deficiency: <20 ng/mL (50nmol/L) Insufficiency: 20-30 ng/mL (50-75 nmol/L) Sufficiency: 30-100 ng/mL (75-250 nmol/L) Toxicity: >100 ng/mL (>250 nmol/L) Performed By: #### L 500.4100, L100.0100, L501.9520, L500.4050, L503.0106, L506.1001 #### [facility] [address] [place], [address] CNOVon 09-13-2024 CNOV Office Visit (INTMWS ) JILLIAN BURRELL ([id number]) 1960 F Date Time Provider Department 09/13/24 [...] Wheat requiring more updated visit. Recording using DAQ[employer] software for draft documentation of the visit was discussed with the patient/authorized enrollment eligibility representative; all questions welcomed and answered. Patient/authorized enrollment eligibility representative agreed to proceed Hypothyroidism: - Taking [...] thigh, x2-3 weeks. - Described as a "hot poker" sensation lasting ~2 seconds. - Aggravated by [...] three times a day as needed. [facility] fluticasone (FLONASE) 50 mcg/actuation nasal [...] on 01/09 (more content not included)... Normal [facility] Emili 08-07-2024 MYAN Telephone (JEAN PAULWS) JILLIAN BURRELL ([id number]) 1960 F Date Time Provider Department 08/07/24 [...] appointment today to discuss further. Angelika Wilson APRN.MYA Allergies As of Date: 08/07/2024 Noted Allergy Reaction AUGMENTIN (AMOXICILLIN-POT CLAVUL*06/29/2023 8 - GI Upset Comments: Pt does not want to take medication again as it made her very sick. CODEINE 03/14/2020 9 - Itching OXYCODONE 07/31/2018 9 - Itching ZANAFLEX (TIZANIDINE) 06/29/2023 14 - Other: See Comments Comments: Made pt very anxious Date Reviewed: 07/14/2024 Reviewed by: Angelika Wilson APRN.FURNISHINGS CONSERVATOR - Fully Assessed Reason for Visit: Angel [...] by ANGELIKA WILSON on 08/17/24 Normal [facility] Basic metabolic 2000 panelon 07-14-2024 Anion gap [Moles/Vol] 12 mmol/L Normal 8-15 [facility] Comment on above: Order Comment: Speci men Type: BLOOD SPECIMENOrdering Facility: [facility] Address: [address] [place] [address] Performed By: #### 2 4321-2 ####[facility] [id number] [place] [address] [place] Calcium [Mass/Vol] 9.8 mg/dL Normal 8.5-10.2 [facility] Comment on above: Order Comment: Speci men Type: BLOOD SPECIMENOrdering Facility: [facility] Address: [address] [place] [address] Performed By: #### 2 4321-2 ####[facility] LABIA [id number] [place] [id number] [place] Chloride [Moles/Vol] 102 mmol/L Normal 98-107 [facility] Comment on above: Order Comment: Speci men Type: BLOOD SPECIMENOrdering Facility: [facility] Address: [address] [place] [address] Performed By: #### 2 4321-2 ####[facility] LABIA [id number] [place] [id number] [place] CO2 [Moles/Vol] 25 mmol/L Normal 22-30 [facility] Comment on above: Order Comment: Speci men Type: BLOOD SPECIMENOrdering Facility: [facility] Address: [address] [place] [address] Performed By: #### 2 4321-2 ####[facility]IA [id number] [place] [address] [place] Creatinine [Mass/Vol] 0.96 mg/dL Normal 0.58-0.96 [facility] Comment on above: Order Comment: Speci men Type: BLOOD SPECIMENOrdering Facility: [facility] Address: [address] [place] [address] Performed By: #### 2 4321-2 ####[facility] LABIA [id number] [place] [address] [place] Creatinine and Glomerular filtration rate.predicted panel (S/P/Bld) 66 mL/min/1.73m??? Normal >=60 [facility] Comment on above: Order Comment: Speci men Type: BLOOD SPECIMENOrdering Facility: [facility] Address: [address] [place] [address] Result Comment: Elisa mated Glomerular Filtration Rate [...] actual GFR. Performed By: #### 2 4321-2 ####[facility] LABCLIA [id number] [place] [id number] [place] Glucose [Mass/Vol] 92 mg/dL Normal 74-99 [facility] Comment on above: Order Comment: Speci men Type: BLOOD SPECIMENOrdering Facility: [facility] Address: [address] [place] [address] Result Comment: The [place] [employer] (ADA) provides guidance for cutoff [...] Standards of Medical Care in Diabetes 2016, [place] [employer]. Diabetes Care. 2016.39(Suppl 1). Performed By: #### 2 4321-2 ####[facility] LABCLIA [id number] [place] [address] [place] Potassium [Moles/Vol] 4.5 mmol/L Normal 3.7-5.1 [facility] Comment on above: Order Comment: Speci men Type: BLOOD SPECIMENOrdering Facility: [facility] Address: [address] [place] [address] Performed By: #### 2 4321-2 ####[facility] LABCLIA [id number] [place] [address] [place] Sodium [Moles/Vol] 139 mmol/L Normal 136-144 [facility] Comment on above: Order Comment: Speci men Type: BLOOD SPECIMENOrdering Facility: [facility] Address: [address] [place] [address] Performed By: #### 2 4321-2 ####[facility] LABCLIA [id number] [place] [address] [place] Urea nitrogen [Mass/Vol] 22 mg/dL High 7-21 [facility] Comment on above: Order Comment: Speci men Type: BLOOD SPECIMENOrdering Facility: [facility] Address: [address] [place] [address] Performed By: #### 2 4321-2 ####[facility] LABCLIA [id number] [place] [id number] [place] [address] OF [facility] CNOVon 07-14-2024 CNOV Office Visit (INTMWS ) JILLIAN BURRELL ([id number]) 1960 F Date Time Provider Department 07/14/24 2:20 PM ANGELIKA WILSON INTPRITI During your visit today, we recorded the following information about you: Pulse Blood pressure Weight 70/minute 126/78 142 kg Angelika Wilson APRN.FURNISHINGS CONSERVATOR 07/14/2024 3:04 PM Signed CC: Patient presents with: Follow Up: Vertigo, ringing in ena ears HPI Jillian Pulliamton is a 64 year old female who presents today for ringing in her ears and dizziness. Recording using DAQRI software for draft documentation of the visit was discussed with the patient/authorized enrollment eligibility representative; all questions welcomed and answered. Patient/authorized enrollment eligibility representative agreed to proceed Tinnitus: - Bilateral tinnitus described as a constant ringing, similar to post-concert ear ringing. - Present for many years exact duration unknown. Ready to have this evaluated. "Floaty" Sensation: - Persistent "floaty" sensation since around New Year, progressively worsening. [...] History of vertigo, previously well-controlled. - Current "floaty" sensation differs from typical vertigo episodes, which [...] citalopram was found to be ready at [employer] but was not picked up. - denies [...] mouth three times a day as needed. [facility]av [facility] Standard Gaurav fluticasone (FLONASE) 50 mcg/actuation nasal [...] Lungs (more content not included)... Normal [facility] Basic metabolic 2000 panelon 06-28-2024 Anion gap [Moles/Vol] 13 mmol/L Normal 8-15 [facility] Comment on above: Order Comment: Speci men Type: BLOOD SPECIMENOrdering Facility: [facility] Address: [address] [place] [address] Performed By: #### 2 4321-2 ####[facility] LABCLIA [id number] [place] [address] [place] Calcium [Mass/Vol] 9.9 mg/dL Normal 8.5-10.2 [facility] Comment on above: Order Comment: Speci men Type: BLOOD SPECIMENOrdering Facility: [facility] Address: [address] [place] [address] Performed By: #### 2 4321-2 ####[facility] LABCLIA [id number] [place] [address] [place] Chloride [Moles/Vol] 98 mmol/L Normal 98-107 [facility] Comment on above: Order Comment: Speci men Type: BLOOD SPECIMENOrdering Facility: [facility] Address: [address] [place] [address] Performed By: #### 2 4321-2 ####[facility] LABCLIA [id number] [place] [id number] [place] CO2 [Moles/Vol] 23 mmol/L Normal 22-30 [facility] Comment on above: Order Comment: Speci men Type: BLOOD SPECIMENOrdering Facility: [facility] Address: [address] [place] [address] Performed By: #### 2 4321-2 ####[facility] LABIA [id number] [address] STATES OF [facility] Creatinine [Mass/Vol] 1.16 mg/dL High 0.58-0.96 [facility] Comment on above: Order Comment: Speci men Type: BLOOD SPECIMENOrdering Facility: [facility] Address: [address] [place] [address] Performed By: #### 2 4321-2 ####[facility] LABIA [id number] [address] Creatinine and Glomerular filtration rate.predicted panel (S/P/Bld) 53 mL/min/1.73m??? Low >=60 [facility] Comment on above: Order Comment: Speci men Type: BLOOD SPECIMENOrdering Facility: [facility] Address: [address] [place] [address] Result Comment: Elisa mated Glomerular Filtration Rate [...] actual GFR. Performed By: #### 2 4321-2 ####[facility] LABCLIA [id number] [place] [address] [place] Glucose [Mass/Vol] 109 mg/dL High 74-99 [facility] Comment on above: Order Comment: Speci men Type: BLOOD SPECIMENOrdering Facility: [facility] Address: [address] [place] [address] Result Comment: The [place] Diabetes Association (ADA) provides guidance for cutoff [...] Standards of Medical Care in Diabetes 2016, [place] [employer]. Diabetes Care. 2016.39(Suppl 1). Performed By: #### 2 4321-2 ####[facility] LABCLIA [id number] [place] [address] [place] Potassium [Moles/Vol] 4.9 mmol/L Normal 3.7-5.1 [facility] Comment on above: Order Comment: Speci men Type: BLOOD SPECIMENOrdering Facility: [facility] Address: [address] [place] [address] Performed By: #### 2 4321-2 ####[facility] LABIA [id number] [place] [id number] [place] Sodium [Moles/Vol] 134 mmol/L Low 136-144 [facility] Comment on above: Order Comment: Speci men Type: BLOOD SPECIMENOrdering Facility: [facility] Address: [address] [place] [address] Performed By: #### 2 4321-2 ####[facility] LABIA [id number] [place] [id number] [place] Urea nitrogen [Mass/Vol] 18 mg/dL Normal 7-21 [facility] Comment on above: Order Comment: Speci men Type: BLOOD SPECIMENOrdering Facility: [facility] Address: [address] [place] [address] Performed By: #### 2 4321-2 ####[facility] LABCLIA [id number] [place] [address] [place] CNOVon 06-28-2024 CNOV Office Visit (INTMWS ) JILLIAN BURRELL ([id number]) 1960 F Date Time Provider Department 06/28/24 11:20 AM ANGELIKA WILSON During your visit today, we recorded the following information about you: Temperature Pulse Respiration Blood pressure 97.5 degrees 94/minute 16/minute 124/88 Weight 139.7 kg Angelika Wilson APRN.CNP 06/28/2024 12:24 PM Signed CC: Patient presents with: Forms: Forms to go into assisted living [facility] Jillian Pulliamton is a 64 year old female who presents today for wanting forms filled out to move into [facility] living [facility] but is also ill. Recording using DAQRI software for draft documentation of the visit was discussed with the patient/authorized enrollment eligibility representative; all questions welcomed and answered. Patient/authorized enrollment eligibility representative agreed to proceed Cough: - Onset of symptoms approximately one week ago. - Symptoms include cough, fever, chills, sinus pressure, and fatigue. - Denies nausea, emesis, or diarrhea. - Initially suspected allergies or sinus infection. - Productive cough with yellow and brown sputum but now states cough Is dry, deep and she "feels it deep in her chest" - Denies increased dyspnea, chest pressure, or [...] times a day for 10 days. [facility] Standard Walker fluticasone (FLONASE) 50 mcg/actuation nasal [...] membr (more content not included)... Normal [facility] XR CHEST 2V FRONTAL/LATon XR CHEST 2V [...] tissues: Unremarkable. IMPRESSION: No acute radiographic abnormality. Train Station Server: VIOLA Transcribe Date/Time: Jun 30 2024 11:12A Dictated by : CLAYTON FORD MD This examination was interpreted and the report reviewed and electronically signed by: CLAYTON FORD MD on Jun 30 2024 11:13AM EST [id number] Normal [facility]ILL[facility] ([id number]) 1960 F Date Time Provider Department 05/18/24 NIGEL CARRILLO INTWS During your visit today, we recorded the following information about you: Rozina Adkins LPN 05/18/2024 11:58 AM Addendum Received a faxed request for a walker, from [facility] agency on aging and Disability. Patient would [...] 1 Prescriptions as of 05/18/2024 - [facility]av [facility] Standard Walker - Cyanocobalamin 1,000 mcg TbER [...] Encounter Status:Closed by JANEL RIVERA on 05/18/24 [facility] Emili 02-25-2024 [facility] Telephone (INTMWS) BURRELLJILLIAN EPPS ([id number]) 1960 F Date Time Provider Department 02/25/24 ANGELIKA WILSON During your visit today, we recorded the following information about you: Mamta Spann RN 02/25/2024 4:00 PM Signed Patient calls and states that [facility] has not sent her the vitamin B-12 prescription. Pharmacy is saying there is something wrong with the script. Patient asking if provider can take a look at what was sent. Please review and advise, FABIOLA Vergara Joy, APRN.FURNISHINGS CONSERVATOR 02/28/2024 8:45 AM Signed Please call [email or web address] scripts and find out what the problem is. Thank you Angelika Wilson APRN.Mamta Bender RN 02/28/2024 9:55 AM Signed Called and spoke with Akbar at [facility]. Akbar states that medication needs a prior authorization. Akbar states that once prior authorization is approved then medication can be resubmitted. FABIOLA Vergara Rachel L, MA 02/28/2024 11:14 AM Signed Forwarding to prior auth. ROSARIO Perez Janice, LPN 02/28/2024 11:19 AM Signed [employer] PA requested. Lydia Castro RN 02/28/2024 12:08 PM Signed Jyothi with [facility] calls to request PA be resubmitted electronically. There system has been down and they are unable to send us any requests. Jyothi reports that they need peer reviewed medical documentation by two providers stating efficacy and safety. Without that documentation medication will not be covered. Case #[id number] . FABIOLA Garcia Janice, LPN 02/28/2024 12:24 [...] Ashvin Nagel, FABIOLA 02/29/2024 5:02 PM Signed [facility] appeal dept phoned to let office know, [...] there PA dept and speak with a enrollment eligibility representative with case # [id number] to answer the questions in the questionnaire. [phone] Zakia Lopez MA 03/01/2024 8:40 AM Signed Medication is not covered due to patient can buy it OTC per medicaid/medicare poliy anything available OTC can be purchased by patient ROSARIO Valadez Krystle, FABIOLA 03/02/2024 4:30 PM Signed Sol with [facility] appeal department calls to ask if provider [...] meloxicam (more content not included)... Normal [facility] 02-14-2024 [facility] Telephone (ANI) JILLIAN BURRELL ([id number]) 1960 F Date Time Provider Department 02/14/24 ANGELIKA WILSON During your visit today, we recorded the following information about you: Angelika Wilson APRN.MYA 02/14/2024 7:29 AM Signed Kidney function is decreased. Is she taking any other anti-inflammatories outside of her meloxicam? Dehydration like decreasing fluid intake? Also vit b12 is low. She will need a supplement for this. It can be an every day pill or weekly injection. What would she prefer? Thank you Angelika Wilson APRN.FURNISHINGS CONSERVATOR Janel Rivera MA 02/14/2024 10:55 AM Signed Patient has been taking ibuprofen for bad tooth for awhile patient states. Patient had tooth extracted on 02/09 so ibuprofen is almost completed. Patient requests daily B- 12 due to weather. Please send to [facility] Angelika Wilson APRN.MYA 02/14/2024 11:23 AM Signed She needs to get off the ibuprofen, increase water intake and recheck kidney function in 2 weeks. Thank you Angelika Wilson APRN.Mamta Bender RN 02/14/2024 12:51 PM Signed Patient calls and states that she talked to [employer] about form that needed to be sent out for lift chair. Patient reports that she was told that provider needed to go to [employer] and fill out the paperwork from there. [...] RN 02/21/2024 11:47 AM Signed Rigoberto from [employer] calls and states that they re-sent form for Lift Chair on 02/17/2024. Rigoberto asking if form was received? Asking for form to be faxed back to [phone]. FABIOLA Vergara Jane, MA 02/23/2024 9:16 AM Signed Form received and placed on desk. Gala Atwood RN 03/08/2024 1:47 PM Signed Rigoberto calling again from [employer]. Following up in regards to form for Lift Chair for pt that was faxed on 02/17/2024. Rigoberto states last time they called on the , they were told that form was on provider's desk waiting to be signed. Asking for form to be faxed back as soon as possible to [phone]. Noted the other part of this encounter [...] [N28.9] Order(s):BASIC METABOLIC PANEL [SQBMP] Order #: [id number] FUTURE Cyanocobalamin 1,000 mcg TbERTake 1 tablet [...] THREE (more content not included)... Normal [facility] CBC W Auto Differential pane l (Bld)on 02-03-2024 Basophils (Bld) [#/Vol] 0.03 10*3/uL [facility] Basophils/100 WBC (Bld) 0.4 % [facility] Differential cell count method Nom (Bld) Auto [facility] Eosinophils (Bld) [#/Vol] 0.19 10*3/uL [facility] Eosinophils/100 WBC (Bld) 2.8 % [facility] Erythrocyte distribution width (RBC) [Ratio] 12.3 % 11.5 - 15.0 % [facility] Hematocrit (Bld) [Volume fraction] 47.4 % High 36.0 - 46.0 % [facility] Hemoglobin (Bld) [Mass/Vol] 15.9 g/dL High 11.5 - 15.5 g/dL [facility] Immature granulocytes (Bld) [#/Vol] [facility] Immature granulocytes/100 WBC (Bld) 0.3 % [facility] Interpretation and review of laboratory results Abnormal [facility] Lymphocytes (Bld) [#/Vol] 2.32 10*3/uL [facility] Lymphocytes/100 WBC (Bld) 33.9 % [facility] MCH (RBC) [Entitic mass] 32.6 pg 26.0 - 34.0 pg [facility] MCHC (RBC) [Mass/Vol] 33.5 g/dL 30.5 - 36.0 g/dL [facility] MCV (RBC) [Entitic vol] 97.1 fL 80.0 - 100.0 fL [facility] Monocytes (Bld) [#/Vol] 0.57 10*3/uL [facility] Monocytes/100 WBC (Bld) 8.3 % [facility] Neutrophils (Bld) [#/Vol] 3.71 10*3/uL [facility] Neutrophils/100 WBC (Bld) 54.3 % [facility] Nucleated RBC (Bld) [#/Vol] NINF [facility] Nucleated RBC/100 WBC (Bld) [Ratio] 0.0 % /100 WBC [facility] Platelet mean volume (Bld) [Entitic vol] 10.7 fL 9.0 - 12.7 fL [facility] Platelets (Bld) [#/Vol] 208 10*3/uL [facility] RBC (Bld) [#/Vol] 4.88 10*6/uL 3.90 - 5.2 0 m/uL [facility] WBC (Bld) [#/Vol] 6.84 10*3/uL [facility] Basophils (Bld) [#/Vol] 0.03 10*3/uL Normal <0.11 [facility] Comment on above: Order Comment: Speci men Type: BLOOD SPECIMENOrdering Facility: [facility] Address: [address] [place] [address] Performed By: #### 5 7021-8 ####[facility] LABIA [id number] [place] [address] [place] Basophils/100 WBC (Bld) 0.4 % Normal [facility] Comment on above: Order Comment: Speci men Type: BLOOD SPECIMENOrdering Facility: [facility] Address: [address] [place] [address] Performed By: #### 5 7021-8 ####[facility] LABCLIA [id number] [place] [address] [place] Differential cell count method Nom (Bld) Auto Normal [facility] Comment on above: Order Comment: Speci men Type: BLOOD SPECIMENOrdering Facility: [facility] Address: [address] [place] [address] Performed By: #### 5 7021-8 ####[facility] LABCLIA [id number] [place] [address] [place] Eosinophils (Bld) [#/Vol] 0.19 10*3/uL Normal <0.46 [facility] Comment on above: Order Comment: Speci men Type: BLOOD SPECIMENOrdering Facility: [facility] Address: [address] [place] [address] Performed By: #### 5 7021-8 ####[facility] LABCLIA [id number] [place] [address] [place] Eosinophils/100 WBC (Bld) 2.8 % Normal [facility] Comment on above: Order Comment: Speci men Type: BLOOD SPECIMENOrdering Facility: [facility] Address: [address] [place] [address] Performed By: #### 5 7021-8 ####[facility] LABCLIA [id number] [place] [address] [place] Erythrocyte distribution width (RBC) [Ratio] 12.3 % Normal 11.5-15.0 [facility] Comment on above: Order Comment: Speci men Type: BLOOD SPECIMENOrdering Facility: [facility] Address: [address] [place] [address] Performed By: #### 5 7021-8 ####[facility] LABCLIA [id number] [place] [address] [place] Hematocrit (Bld) [Volume fraction] 47.4 % High 36.0-46.0 [facility] Comment on above: Order Comment: Speci men Type: BLOOD SPECIMENOrdering Facility: [facility] Address: [address] [place] [address] Performed By: #### 5 7021-8 ####[facility] LABCLIA [id number] [place] [address] [place] Hemoglobin (Bld) [Mass/Vol] 15.9 g/dL High 11.5-15.5 [facility] Comment on above: Order Comment: Speci men Type: BLOOD SPECIMENOrdering Facility: [facility] Address: [address] [place] [address] Performed By: #### 5 7021-8 ####[facility] LABCLIA [id number] [place] [address] [place] Immature granulocytes (Bld) [#/Vol] 10*3/uL Normal <0.10 [facility] Comment on above: Order Comment: Speci men Type: BLOOD SPECIMENOrdering Facility: [facility] Address: [address] [place] [address] Performed By: #### 5 7021-8 ####[facility] LABCLIA [id number] [place] [address] [place] Immature granulocytes/100 WBC (Bld) 0.3 % Normal [facility] Comment on above: Order Comment: Speci men Type: BLOOD SPECIMENOrdering Facility: [facility] Address: [address] [place] [address] Performed By: #### 5 7021-8 ####[facility] LABCLIA [id number] [place] [address] [place] Lymphocytes (Bld) [#/Vol] 2.32 10*3/uL Normal 1.00-4.00 [facility] Comment on above: Order Comment: Speci men Type: BLOOD SPECIMENOrdering Facility: [facility] Address: [address] [place] [address] Performed By: #### 5 7021-8 ####[facility] LABCLIA [id number] [place] [address] [place] Lymphocytes/100 WBC (Bld) 33.9 % Normal [facility] Comment on above: Order Comment: Speci men Type: BLOOD SPECIMENOrdering Facility: [facility] Address: [address] [place] [address] Performed By: #### 5 7021-8 ####[facility] LABCLIA [id number] [place] [address] [place] MCH (RBC) [Entitic mass] 32.6 pg Normal 26.0-34.0 [facility] Comment on above: Order Comment: Speci men Type: BLOOD SPECIMENOrdering Facility: [facility] Address: [address] [place] [address] Performed By: #### 5 7021-8 ####[facility] LABIA [id number] [place] [address] [place] MCHC (RBC) [Mass/Vol] 33.5 g/dL Normal 30.5-36.0 [facility] Comment on above: Order Comment: Speci men Type: BLOOD SPECIMENOrdering Facility: [facility] Address: [address] [place] [address] Performed By: #### 5 7021-8 ####[facility] LABIA [id number] [place] [address] [place] MCV (RBC) [Entitic vol] 97.1 fL Normal 80.0-100.0 [facility] Comment on above: Order Comment: Speci men Type: BLOOD SPECIMENOrdering Facility: [facility] Address: [address] [place] [address] Performed By: #### 5 7021-8 ####[facility] [id number] [place] [address] [place] Monocytes (Bld) [#/Vol] 0.57 10*3/uL Normal <0.87 [facility] Comment on above: Order Comment: Speci men Type: BLOOD SPECIMENOrdering Facility: [facility] Address: [address] [place] [address] Performed By: #### 5 7021-8 ####[facility] LABIA [id number] [place] [address] [place] Monocytes/100 WBC (Bld) 8.3 % Normal [facility] Comment on above: Order Comment: Speci men Type: BLOOD SPECIMENOrdering Facility: [facility] Address: [address] [place] [address] Performed By: #### 5 7021-8 ####[facility] LABCLIA [id number] [place] [address] [place] Neutrophils (Bld) [#/Vol] 3.71 10*3/uL Normal 1.45-7.50 [facility] Comment on above: Order Comment: Speci men Type: BLOOD SPECIMENOrdering Facility: [facility] Address: [address] [place] [address] Performed By: #### 5 7021-8 ####[facility] LABCLIA [id number] [place] [address] [place] Neutrophils/100 WBC (Bld) 54.3 % Normal [facility] Comment on above: Order Comment: Speci men Type: BLOOD SPECIMENOrdering Facility: [facility] Address: [address] [place] [address] Performed By: #### 5 7021-8 ####[facility] LABIA [id number] [place] [address] [place] Nucleated RBC (Bld) [#/Vol] 10*3/uL Normal <0.01 [facility] Comment on above: Order Comment: Speci men Type: BLOOD SPECIMENOrdering Facility: [facility] Address: [address] [place] [address] Performed By: #### 5 7021-8 ####[facility] LABCLIA [id number] [place] [address] [place] Nucleated RBC/100 WBC (Bld) [Ratio] 0.0 /100 WBC Normal [facility] Comment on above: Order Comment: Speci men Type: BLOOD SPECIMENOrdering Facility: [facility] Address: [address] [place] [address] Performed By: #### 5 7021-8 ####[facility] LABCLIA [id number] [address] [address] [place] Platelet mean volume (Bld) [Entitic vol] 10.7 fL Normal 9.0-12.7 [facility] Comment on above: Order Comment: Speci men Type: BLOOD SPECIMENOrdering Facility: [facility] Address: [address] [place] [address] Performed By: #### 5 7021-8 ####[facility] LABCLIA [id number] [place] [address] [place] Platelets (Bld) [#/Vol] 208 10*3/uL Normal 150-400 [facility] Comment on above: Order Comment: Speci men Type: BLOOD SPECIMENOrdering Facility: [facility] Address: [address] [place] [address] Performed By: #### 5 7021-8 ####[facility] LABIA [id number] [place] [address] [place] RBC (Bld) [#/Vol] 4.88 10*6/uL Normal 3.90-5.20 [facility] Comment on above: Order Comment: Speci men Type: BLOOD SPECIMENOrdering Facility: [facility] Address: [address] [place] [address] Performed By: #### 5 7021-8 ####[facility] LABIA [id number] [place] [address] [place] WBC (Bld) [#/Vol] 6.84 10*3/uL Normal 3.70-11.00 [facility] Comment on above: Order Comment: Speci men Type: BLOOD SPECIMENOrdering Facility: [facility] Address: [address] [place] [address] Performed By: #### 5 7021-8 ####[facility] LABIA [id number] [place] [address] [place] CNOVon 12-26-2024 CNOV Office Visit (INTMWS ) JILLIAN BURRELL ([id number]) 1960 F Date Time Provider Department 02/03/24 10:20 AM ANGELIKA WILSON INTPRITI During your visit today, we recorded the following information about you: Temperature Pulse Respiration Blood pressure 96.9 degrees 85/minute 22/minute 112/72 Weight Height 139.3 kg 1.702 m Angelika Wilson APRN.[facility] 02/03/2024 10:51 AM Signed CC: Patient presents with: Follow Up: needs lift chair, states lift chair order needs reworded HPI Jillian Aldrich Lance is a 63 year old female who [...] ?F) Resp 22 Ht 170.2 cm (5' 7") Wt (!) 139.3 kg (307 lb) SpO2 [...] o (more content not included)... Normal [facility] Comprehensive metabolic 2000 panelon 02-03-2024 Albumin [Mass/Vol] 4.2 g/dL Normal 3.9-4.9 [facility] Comment on above: Order Comment: Speci men Type: BLOOD SPECIMENOrdering Facility: [facility] Address: [address] [place] [address] Performed By: #### 2 4328, 2131-10 ####[facility] LABIA [id number] [place] [address] [place] ALP [Catalytic activity/Vol] 70 U/L Normal 34-123 [facility] Comment on above: Order Comment: Speci men Type: BLOOD SPECIMENOrdering Facility: [facility] Address: [address] [place] [address] Performed By: #### 2 4323, 2131-10 ####[facility] LABIA [id number] [place] [address] [place] ALT [Catalytic activity/Vol] 30 U/L Normal 7-38 [facility] Comment on above: Order Comment: Speci men Type: BLOOD SPECIMENOrdering Facility: [facility] Address: [address] [place] [address] Performed By: #### 2 432-8, 2131-10 ####[facility] LABCLIA [id number] [facility] [place] [id number] [place] Anion gap [Moles/Vol] 15 mmol/L Normal 8-15 [facility] Comment on above: Order Comment: Speci men Type: BLOOD SPECIMENOrdering Facility: [facility] Address: [address] [place] [address] Performed By: #### 2 4322-09, 2131-10 ####[facility] LABCLIA [id number] [place] [address] [place] AST [Catalytic activity/Vol] 28 U/L Normal 13-35 [facility] Comment on above: Order Comment: Speci men Type: BLOOD SPECIMENOrdering Facility: [facility] Address: [address] [place] [address] Performed By: #### 2 4322-09, 2131-10 ####[facility] LABCLIA [id number] [place] [address] [place] Bilirubin [Mass/Vol] 0.5 mg/dL Normal 0.2-1.3 [facility] Comment on above: Order Comment: Speci men Type: BLOOD SPECIMENOrdering Facility: [facility] Address: [address] [place], [place] [address] Performed By: #### 2 4322-09, 2131-10 ####[facility] LABCLIA [id number] [facility] [place] [id number] [place] Calcium [Mass/Vol] 9.6 mg/dL Normal 8.5-10.2 [facility] Comment on above: Order Comment: Speci men Type: BLOOD SPECIMENOrdering Facility: [facility] Address: [address] [place], [place] [address] Performed By: #### 2 43204-15, 2131-10 ####[facility] LABCLIA [id number] [place] [address] [place] Chloride [Moles/Vol] 101 mmol/L Normal 98-107 [facility] Comment on above: Order Comment: Speci men Type: BLOOD SPECIMENOrdering Facility: [facility] Address: [address] [place] [address] Performed By: #### 2 4323-8, 2131-10 ####[facility] LABCLIA [id number] [place] [address] [place] CO2 [Moles/Vol] 23 mmol/L Normal 22-30 [facility] Comment on above: Order Comment: Speci men Type: BLOOD SPECIMENOrdering Facility: [facility] Address: [address] [place] [address] Performed By: #### 2 4323-8, 2131-10 ####[facility] LABCLIA [id number] [place] [address] [place] Creatinine [Mass/Vol] 1.26 mg/dL High 0.58-0.96 [facility] Comment on above: Order Comment: Speci men Type: BLOOD SPECIMENOrdering Facility: [facility] Address: [address] [place] [address] Performed By: #### 2 4323-8, 2131-10 ####[facility] LABIA [id number] [place] [address] [place] [facility] Creatinine and Glomerular filtration rate.predicted panel (S/P/Bld) 48 mL/min/1.73m??? Low >=60 [facility] Comment on above: Order Comment: Speci men Type: BLOOD SPECIMENOrdering Facility: [facility] Address: [address] [place] [address] Result Comment: Elisa mated Glomerular Filtration Rate [...] reflect actual GFR. Performed By: #### 2 4322-09, 2131-10 ####[facility] LABCLIA [id number] [address] [address] [place] Glucose [Mass/Vol] 106 mg/dL High 74-99 [facility] Comment on above: Order Comment: Speci men Type: BLOOD SPECIMENOrdering Facility: [facility] Address: [address] [place] [address] Result Comment: The [place] [employer] (ADA) provides guidance for cutoff [...] Standards of Medical Care in Diabetes 2016, [place] [employer]. Diabetes Care. 2016.39(Suppl 1). Performed By: #### 2 4322-09, 2131-10 ####[facility] LABCLIA [id number] [address] [address] [place] Potassium [Moles/Vol] 4.7 mmol/L Normal 3.7-5.1 [facility] Comment on above: Order Comment: Speci men Type: BLOOD SPECIMENOrdering Facility: [facility] Address: [address] [place] [address] Performed By: #### 2 4322-09, 2131-10 ####[facility] LABIA [id number] [address] [address] [place] Protein [Mass/Vol] 7.2 g/dL Normal 6.3-8.0 [facility] Comment on above: Order Comment: Speci men Type: BLOOD SPECIMENOrdering Facility: [facility] Address: [address] [place], [place] [address] Performed By: #### 2 4323-8, 2131-10 ####[facility] LABCLIA [id number] [address] [address] [place] Sodium [Moles/Vol] 139 mmol/L Normal 136-144 [facility] Comment on above: Order Comment: Speci men Type: BLOOD SPECIMENOrdering Facility: [facility] Address: [address] [place] [address] Performed By: #### 2 4323-8, 2131-10 ####[facility] LABCLIA [id number] [place] [address] [place] Urea nitrogen [Mass/Vol] 25 mg/dL High 7-21 [facility] Comment on above: Order Comment: Speci men Type: BLOOD SPECIMENOrdering Facility: [facility] Address: [address] [place] [address] Performed By: #### 2 4323-8, 2131-10 ####[facility] LABCLIA [id number] [place] [address] [place] Lipid 1996 panelon 4 Cholesterol [Mass/Vol] 221 mg/dL High <200 [facility] Comment on above: Order Comment: Speci men Type: BLOOD SPECIMENOrdering Facility: [facility] Address: [address] [place] [address] Result Comment: <200 mg/dL, Desirable 200-239 mg/dL, Borderline high >239 mg/dL, High Performed By: #### 2 4331-1, 3051-0, 3024-7, 3016-3 ####[facility] LABCLIA [id number] [place] [address] [place] Cholesterol in HDL [Mass/Vol] 38 mg/dL Low >39 [facility] Comment on above: Order Comment: Speci men Type: BLOOD SPECIMENOrdering Facility: [facility] Address: [address] [place] [address] Result Comment: 40-5 9 mg/dL, Acceptable >59 mg/dL, High: Negative risk factor for coronary heart disease <40 mg/dL, Low: Positive risk factor for coronary heart disease Performed By: #### 2 4331-1, 3051-0, 3024-7, 3016-3 ####[facility] LABCLIA [id number] [place] [address] [place] Cholesterol in LDL [Mass/Vol] 148 mg/dL High <100 [facility] Comment on above: Order Comment: Rajat briones Type: BLOOD SPECIMENOrdering Facility: [facility] Address: [address] [place] [address] Result Comment: <100 mg/dL, Optimal 100-129 mg/dL, Near optimal/above optimal 130-159 mg/dL, Borderline high 160-189 mg/dL, High >189 mg/dL, Very high Secondary prevention optimal LDL Cholesterol levels are recommended to be < 70 mg/dL Performed By: #### 2 4331-1, 3051-0, 4-7, 6-3 ####[facility] LABCLIA [id number] [place] [address] [place] Cholesterol in LDL/Cholesterol in HDL [Mass ratio] 3.89 {ratio} High <2.54 [facility] Comment on above: Order Comment: Lindai men Type: BLOOD SPECIMENOrdering Facility: [facility] Address: [address] [place] [address] Result Comment: Refe rence: 1. National Cholesterol Education Program ATP III Guideline At-A-Glance Quick Desk Reference: National Heart, Lung, and Blood [place]. National Institutes of Health. 2001: NIH Publication No. 01-3305. 2. An International Atherosclerosis Society position paper: global recommendations for the management of dyslipidemia: executive summary, Atherosclerosis. 2014: 232(2):410-413. Performed By: #### 2 4331-1, 3051-0, 3024-7, 3016-3 ####[facility] LABCLIA [id number] [address] [address] [place] Cholesterol in VLDL [Mass/Vol] 35 mg/dL High <30 [facility] Comment on above: Order Comment: Speci men Type: BLOOD SPECIMENOrdering Facility: [facility] Address: [address] [place] [address] Performed By: #### 2 4331-1, 3051-0, 3024-7, 3016-3 ####[facility] LABCLIA [id number] [address] [address] [place] Cholesterol non HDL [Mass/Vol] 183 mg/dL High <130 [facility] Comment on above: Order Comment: Speci men Type: BLOOD SPECIMENOrdering Facility: [facility] Address: [address] [place] [address] Result Comment: <130 mg/dL, Optimal 130-159 mg/dL, Near optimal/above optimal 160-189 mg/dL, Borderline high 190-219 mg/dL, High >219 mg/dL, Very high Secondary prevention optimal non HDL Cholesterol levels are recommended to be <100 mg/dL Performed By: #### 2 4331-1, 305-0, 3023-7, 3016-3 ####[facility] LABCLIA [id number] [address] [address] [place] Cholesterol.total/Chol esterol in HDL [Mass ratio] 5.82 {ratio} High <5.10 [facility] Comment on above: Order Comment: Speci men Type: BLOOD SPECIMENOrdering Facility: [facility] Address: [address] [place], [place] [address] Performed By: #### 2 4331-1, 3051-0, 3023-7, 6-3 ####[facility] LABCLIA [id number] [address] [address] [place] FASTING TIME 12 hrs Normal [facility] Comment on above: Order Comment: Speci men Type: BLOOD SPECIMENOrdering Facility: [facility] Address: [address] [place] [address] Performed By: #### 2 4331-1, 3051-0, 7, 6-3 ####[facility] LABCLIA [id number] [place] [address] [place] Triglyceride [Mass/Vol] 175 mg/dL High <150 [facility] Comment on above: Order Comment: Speci men Type: BLOOD SPECIMENOrdering Facility: [facility] Address: [address] [place] [address] Result Comment: <150 mg/dL, Normal 150-199 mg/dL, Borderline high 200-499 mg/dL, High >499 mg/dL, Very high Performed By: #### 2 4331-1, 305-0, 3023-08, 3015-3 ####[facility] LABCLIA [id number] [place] [address] [place] T3Free SerPl-mCncon 02-03-20 24 Free T3 [Mass/Vol] 2.6 pg/mL Normal 2.3-4.1 [facility] Comment on above: Order Comment: Speci men Type: BLOOD SPECIMENOrdering Facility: [facility] Address: [address] [place] [address] Performed By: #### 2 4331-1, 305-0, 7, 6-3 ####[facility] LABCLIA [id number] [place] [address] [place] T4 Free SerPl-mCncon 024 Free T4 [Mass/Vol] 1.4 ng/dL Normal 0.9-1.7 [facility] Comment on above: Order Comment: Speci men Type: BLOOD SPECIMENOrdering Facility: [facility] Address: [address] [place] [address] Performed By: #### 2 4331-1, 3051-0, 3023-7, 6-3 ####[facility] LABCLIA [id number] [place] [id number] [place] TSH SerPl-aCncon 02-03-2024 TSH Qn 3.030 m[IU]/L Normal 0.270-4.200 [facility] Comment on above: Order Comment: Speci men Type: BLOOD SPECIMENOrdering Facility: [facility] Address: [address] [place] [address] Performed By: #### 2 4331-1, 3051-0, 3024-7, 3016-3 ####[facility] LABIA [id number] [place] [id number] [place] Vit B12 SerPl-mCncon 024 Cobalamin (Vitamin B12) [Mass/Vol] 197 pg/mL Low 232-1245 [facility] Comment on above: Order Comment: Speci men Type: BLOOD SPECIMENOrdering Facility: [facility] Address: [address] [place] [address] Performed By: #### 2 4323-8, 2132-9 ####[facility] LABIA [id number] [address] [place] [facility] [facility] BURRELL ([id number]) 1960 F Date Time Provider Department 12/27/23 [facility] During your visit today, we recorded the following information about you: Yolanda Collier LPN 12/27/2023 2:11 PM Signed Buddy from [employer] calling asking if there has been a faxed received from them for pt? Asking for a return call. Rozina Adkins LPN 12/30/2023 10:29 AM Signed Called [employer] and spoke to office staff, will refax request. Rozina Adkins LPN December 30, 2023 10:28 AM Lydia Castro RN 12/30/2023 11:03 AM Signed [facility] and reports that forms were [...] any other seated device. Fax # is [phone] Phone # is [phone] FABIOLA Garcia Mary, LPN 12/30/2023 11:44 AM Signed Called and spoke to Claudia at [facility], will refax a new form to [...] Encounter Status:Closed by ROZINA ADKINS on 12/30/23 [facility] Emili 12-01-2023 [place] Telephone (INTMWS) JILLIAN BURRELL ([id number]) 1960 F Date Time Provider Department 12/01/23 [...] insurance. She didn't know if Angelika Wilson [employer] EQUIPMENT MECHANIC had received something recently about this. She [...] Encounter Status:Closed by MAMTA SPANN on 12/01/23 [facility] 07-06-2023 [facility] JILLIAN BURRELL ([id number]) 1960 F Date Time Provider Department 07/06/23 [...] the procedure on 07/09/2023 in [place] Thermodynamicist to Dr. Nba Caceres MD / Josefina Abraham CNP [employer] [facility] [place] [address] [place] [address] Phone. [phone] / Fax. [phone] Nba Caceres MD 07/06/2023 2:40 PM Signed Unfortunately, we will need to reschedule. It is not taking the antibiotic that is the issue, but rather why the antibiotic is being prescribed - a possible infection. Nba Caceres III, MD, Kishore Chapin 07/06/2023 3:28 PM Signed Patient would like to reschedule procedure in [place] on August 10 [place] Victor Thermodynamicist to Dr. Nba Caceres MD / Josefina Abraham CNP PRINT LINE INSPECTOR [facility] [place] [address] [place] [address] Phone. [phone] / Fax. [phone] Allergies As of Date: 07/06/2023 Noted Allergy Reaction AUGMENTIN (AMOXICILLIN-POT CLAVUL*06/29/2023 8 - GI Upset Comments: Pt does not want to take medication again as it made her very sick. CODEINE 03/14/2020 9 - Itching OXYCODONE 07/31/2018 9 - Itching ZANAFLEX (TIZANIDINE) 06/29/2023 14 - Other: See Comments Comments: Made pt very anxious Date Reviewed: 06/29/2023 Reviewed by: Antonia Wagoner, RN - Fully Assessed Reason for Visit: Patient Question [3367] Prescriptions as of 07/06/2023 - fluticasone (FLONASE) [...] Encounter Status:Closed by NBA CACERES on 07/06/23 [facility] Absolute lymphocyte countOrd ered By: Doni Cherry on 06-14-2023 Lymphocytes Auto (Unsp spec) [#/Vol] 2.09 10*3/uL 0.83-4.51 [facility] Automated lymphocyte count a s percentage of total leukocytesOrdered By: Doni Cherry on 06-14-2023 Lymphocytes/100 WBC Auto (Unsp spec) 46.3 % 19-41 [facility] Basophil percentageOrdered B y: Doni Cherry on 06-14-2023 Basophils/100 WBC (Bld) 0.7 % 0-1 [facility] Chloride [Moles/Vol] 104 mmol/L 98-107 [facility] Eosinophils/100 WBC (Bld) 3.3 % 0-5 [facility] Glucose [Mass/Vol] 112 mg/dL 74-106 [facility] Comment on above: Fasting Glucose resu lt from 100 to 125 mg/dL suggests IMPAIRED HOMEOSTASIS per A.D.A. criteria. Hemoglobin (Bld) [Mass/Vol] 14.3 g/dL 12.0-15.0 [facility] Monocytes/100 WBC (Bld) 7.5 % 0-10 [facility] Neutrophils (Bld) [#/Vol] 1.9 10*3/uL 2.0-7.7 [facility] Neutrophils/100 WBC (Bld) 41.5 % 47-70 [facility] Potassium [Moles/Vol] 4.1 mmol/L 3.5-5.1 [facility] Comment on above: Slight Hemolysis, Re sult may be falsely increased. Sodium [Moles/Vol] 138 mmol/L 136-145 [facility] WBC (Bld) [#/Vol] 4.5 10*3/uL 4.4-11.0 [facility] Blood manual differential co mment interpretation (narrative result)Ordered By: Doni Cherry on 06-14-2023 Manual differential comment Carlitos (Bld) [Interp] See comment [facility] Comment on above: Please note: For thi [...] Platelets LM Ql (Bld) SLT DEC ADEQ [facility] Determination of erythrocyte mean corpuscular volume (MCV)Ordered By: Doni Cherry on 06-14-2023 MCV (RBC) [Entitic vol] 93.9 fL 81-99 [facility] Erythrocyte distribution wid th ratioOrdered By: Doni Cherry on 06-14-2023 Erythrocyte distribution width (RBC) [Ratio] 12.9 % 11.6-14.6 [facility] Erythrocyte distribution wid th standard deviationOrdered By: Doni Cherry on 06-14-2023 Erythrocyte distribution width (RBC) [Entitic vol] 44.2 fL 35.1-43.9 [facility] Hematocrit Auto (Bld) [Volum e fraction]Ordered By: Doni Cherry on 06-14-2023 Hematocrit (Bld) [Volume fraction] 43.1 % 37-47 [facility] Immature granulocytes/100 WB C Auto (Bld)Ordered By: Doni Cherry on 06-14-2023 Immature granulocytes/100 WBC (Bld) 0.700 % 0.0-0.9 [facility] Comment on above: IG% - Immature Granu locytes (promyelocytes, myelocytes and metamyelocytes) > 1% indicates that a LEFT SHIFT is Present. Laboratory - Chemistry and C hemistry - challengeOrdered By: Doni Cherry on 06-14-2023 CO2 [Moles/Vol] 31.0 mmol/L 21.0-32.0 [facility] Natriuretic peptide B (Bld) [Mass/Vol] 26.5 pg/mL 0-100 [facility] Urea nitrogen/Creatinine [Mass ratio] 22.8 mg/mg 10-20 [facility] Laboratory - Hematology and Cell countsOrdered By: Doni Cherry on 06-14-2023 MCH (RBC) [Entitic mass] 31.2 pg 27.0-32.0 [facility] MCHC (RBC) [Mass/Vol] 33.2 g/dL 32-36 [facility] Nucleated RBC/100 WBC (Bld) [Ratio] 0 % 0-5 [facility] Platelet mean volume (Bld) [Entitic vol] 11.0 fL 6.2-12.0 [facility] No Panel InformationOrdered By: Doni Cherry on 06-14-2023 Estimated Creatinine Clearance Calc 89.93 ml/min [facility] Estimated GFR (MDRD) Amer 71 mL/min >60 [facility] Comment on above: GFR Calc Estimated GFR (MDRD) Non-Af Amer 59 mL/min >60 [facility] Comment on above: Non- GFR Calc Platelet Count TNP [facility] Comment on above: Test not performedPr evious reported result: 145 [id number] by: KELSY on 06/14/23:1804 AMENDED REPORT 06/14/231803 PLT previously reported as: 145 L K/mm3 is provided rather than a platelet count due to platelet clumping. Other parameters associated with this sample are not affected by platelet clumping. If a more accurate platelet count is required, a redraw of the patient will be necessary. Troponin I High Sensitivity 8 pg/mL 3.0-54.0 [facility] Comment on above: Please Note: New Rianna t Units and Gender Specific Reference Ranges. For more information see Policy Stat Procedure [place] High Sensitivity Troponin (TNIH) and attachments. RBC Auto (Bld) [#/Vol]Ordere d By: Doni Cherry on 06-14-2023 RBC (Bld) [#/Vol] 4.59 10*6/uL 4.2-5.4 [facility] Serum or plasma calcium camilo urement (mass/volume)Ordered By: Doni Cherry on 06-14-2023 Calcium [Mass/Vol] 9.0 mg/dL 8.5-10.1 [facility] Serum or plasma creatinine m easurement (mass/volume)Ordered By: Doni Cherry on 06-14-2023 Creatinine [Mass/Vol] 1.01 mg/dL 0.55-1.02 [facility] Comment on above: The validity of the calculated GFR & GFRAA in patients over 70 years has not been determined. Clinical correlation is essential. Serum or plasma urea nitroge n measurement (mass/volume)Ordered By: Doni Cherry on 06-14-2023 Urea nitrogen [Mass/Vol] 23 mg/dL 7-18 [facility] Thin prep Papanicolaou smear with manual screeningOrdered By: Doni Cherry on 06-14-2023 Thin prep Papanicolaou smear with manual screening 3 5-15 [facility] CNCOon 06-03-2023 CNCO Letter Text Normal [facility] CNOVon 06-03-2023 CNOV Office Visit (SPAGWO ) JILLIAN BURRELL ([id number]) 1960 F Date Time Provider Department 06/03/23 11:30 AM NBA CACERES During your visit today, we recorded the following information about you: Pulse Respiration 69/minute 16/minute Nba Caceres MD 06/03/2023 12:17 PM Signed [facility] Today's Date: 06/03/2023 Name: Jillian Burrell : 1960 Purpose: New Patient Consultation Chief complaint: Low back pain Referring Clinician: Angelika Wilson APRN.FURNISHINGS CONSERVATOR Pertinent Past Medical History: FREEMAN, Hypothyroid, MDD, [...] Pain Medications: Tylenol (Acetaminophen) Opioids: Hydrocodone (eg [place]) Compliance: PDMP website checked and validated on [...] convex rotoscoliosis.. (more content not included)... Normal [facility] CNPNon 06-03-2023 CNPN Telephone (SPAGWO) JILLIAN BURRELL ([id number]) 1960 F Date Time Provider Department 06/03/23 [...] No 9. Does this procedure require a shuttle bus driver? Yes If yes, has patient been notified that a shuttle bus driver is needed and must be present at [...] Status:Closed by KISHORE VICTOR on 06/03/23 Normal [facility] CBC panel Auto (Bld)on 11-12 Erythrocyte distribution width (RBC) [Ratio] 13.0 % 11.5 - 15.0 % [facility] Hematocrit (Bld) [Volume fraction] 46.6 % High 36.0 - 46.0 % [facility] Hemoglobin (Bld) [Mass/Vol] 14.9 g/dL 11.5 - 15.5 g/dL [facility] MCH (RBC) [Entitic mass] 30.6 pg 26.0 - 34.0 pg [facility] MCHC (RBC) [Mass/Vol] 32.0 g/dL 30.5 - 36.0 g/dL [facility] MCV (RBC) [Entitic vol] 95.7 fL 80.0 - 100.0 fL [facility] Nucleated RBC (Bld) [#/Vol] <0.01 k/uL [facility] Platelet mean volume (Bld) [Entitic vol] 10.9 fL 9.0 - 12.7 fL [facility] Platelets (Bld) [#/Vol] 229 10*3/uL 150 - 400 k/uL [facility] RBC (Bld) [#/Vol] 4.87 10*6/uL 3.90 - 5.2 0 m/uL [facility] WBC (Bld) [#/Vol] 5.76 10*3/uL 3.70 - 11. 00 k/uL [facility] Comprehensive metabolic 2000 panelon 11-12-2022 Albumin [Mass/Vol] 4.0 g/dL 3.9 - 4.9 g/dL [facility] ALP [Catalytic activity/Vol] 66 U/L 34 - 123 U/L [facility] ALT [Catalytic activity/Vol] 26 U/L 7 - 38 U/L [facility] Anion gap [Moles/Vol] 9 mmol/L 9 - 18 mmol/L [facility] AST [Catalytic activity/Vol] 24 U/L 13 - 35 U/L [facility] Bilirubin [Mass/Vol] 0.3 mg/dL 0.2 - 1 .3 mg/dL [facility] Calcium [Mass/Vol] 9.6 mg/dL 8.5 - 10. 2 mg/dL [facility] Chloride [Moles/Vol] 102 mmol/L 97 - 10 5 mmol/L [facility] CO2 [Moles/Vol] 27 mmol/L 22 - 30 mmol/L [facility] Creatinine [Mass/Vol] 1.15 mg/dL High 0.58 - 0.96 mg/dL [facility] Estimated Glomerular Filtration Rate 54 mL/min/1.73m Low >=60 mL/min/1.73m [facility] Glucose [Mass/Vol] 112 mg/dL High 74 - 99 mg/dL [facility] Potassium [Moles/Vol] 4.5 mmol/L 3.7 - 5.1 mmol/L [facility] Protein [Mass/Vol] 7.6 g/dL 6.3 - 8.0 g/dL [facility] Sodium [Moles/Vol] 138 mmol/L 136 - 144 mmol/L [facility] Urea nitrogen [Mass/Vol] 26 mg/dL High 7 - 21 mg/dL [facility] Lipid 1996 panelon Cholesterol [Mass/Vol] 200 mg/dL High <200 mg/dL [facility] Cholesterol in HDL [Mass/Vol] 39 mg/dL Low >39 mg/dL [facility] Cholesterol in LDL [Mass/Vol] 120 mg/dL High <100 mg/dL [facility] Cholesterol in LDL/Cholesterol in HDL [Mass ratio] 3.08 {ratio} High <2.54 [facility] Cholesterol in VLDL [Mass/Vol] 41 mg/dL High <30 mg/dL [facility] Cholesterol non HDL [Mass/Vol] 161 mg/dL High <130 mg/dL [facility] Cholesterol.total/Chol esterol in HDL [Mass ratio] 5.13 {ratio} High <5.10 [facility] Fasting Time 10 hrs [facility] Triglyceride [Mass/Vol] 203 mg/dL High <150 mg/dL [facility] TSH BLDon 11-12-2022 TSH Qn 2.420 m[IU]/L 0.270 - 4.200 mIU/L [facility] Absolute lymphocyte counton 02-19-2022 Lymphocytes Auto (Unsp spec) [#/Vol] 2.21 10*3/uL 0.83-4.51 [facility] Work Phone: Basophil percentageon 2022 Basophils/100 WBC (Bld) 0.7 % 0-1 [facility] Work Phone: Chloride [Moles/Vol] 103 mmol/L 98-107 [facility] Work Phone: Eosinophils/100 WBC (Bld) 2.7 % 0-5 [facility] Work Phone: Glucose [Mass/Vol] 96 mg/dL 74-106 [facility] Work Phone: Neutrophils (Bld) [#/Vol] 3.9 10*3/uL 2.0-7.7 [facility] Work Phone: Neutrophils/100 WBC (Bld) 55.0 % 47-70 [facility] Work Phone: Potassium [Moles/Vol] 3.9 mmol/L 3.5-5.1 [facility] Work Phone: Sodium [Moles/Vol] 140 mmol/L 136-145 [facility] Work Phone: WBC (Bld) [#/Vol] 7.0 10*3/uL 4.4-11.0 [facility] Work Phone: Blood erythrocytes count (nu mber/volume)on 02-19-2022 RBC (Bld) [#/Vol] 4.46 10*6/uL 4.2-5.4 [facility] Work Phone: Blood hemoglobin measurement (mass/volume)on 02-19-2022 Hemoglobin (Bld) [Mass/Vol] 14.5 g/dL 12.0-15.0 [facility] Work Phone: Blood lymphocytes/100 leukoc yteson 02-19-2022 Lymphocytes/100 WBC (Bld) 31.4 % 19-41 [facility] Work Phone: Blood monocytes/100 leukocyt eson 02-19-2022 Monocytes/100 WBC (Bld) 9.5 % 0-10 [facility] Work Phone: [phone] Blood platelet mean volumeon 02-19-2022 Platelet mean volume (Bld) [Entitic vol] 9.9 fL 6.2-12.0 [facility] Work Phone: [phone] Determination of erythrocyte mean corpuscular volume (MCV)on 02-19-2022 MCV (RBC) [Entitic vol] 94.6 fL 81-99 [facility] Work Phone: [phone] Hematocrit Auto (Bld) [Volum e fraction]on 02-19-2022 Hematocrit (Bld) [Volume fraction] 42.2 % 37-47 [facility] Work Phone: [phone] Laboratory - Chemistry and C hemistry - challengeon 02-19-2022 CO2 [Moles/Vol] 31.0 mmol/L 21.0-32.0 [facility] Work Phone: [phone] Natriuretic peptide B (Bld) [Mass/Vol] 7.3 pg/mL 0-100 [facility] Work Phone: [phone] Urea nitrogen/Creatinine [Mass ratio] 20.4 mg/mg 10-20 [facility] Work Phone: [phone] Laboratory - Hematology and Cell countson 02-19-2022 Erythrocyte distribution width (RBC) [Entitic vol] 46.2 fL 35.1-43.9 [facility] Work Phone: [phone] Erythrocyte distribution width (RBC) [Ratio] 13.2 % 11.6-14.6 [facility] Work Phone: [phone] Immature granulocytes/100 WBC (Bld) 0.700 % 0.0-0.9 [facility] Work Phone: [phone] Comment on above: IG% - Immature Granu locytes (promyelocytes, myelocytes and metamyelocytes) > 1% indicates that a LEFT SHIFT is Present. MCH (RBC) [Entitic mass] 32.5 pg 27.0-32.0 [facility] Work Phone: [phone] Nucleated RBC/100 WBC (Bld) [Ratio] 0 % 0-5 [facility] Work Phone: MCHC Auto (RBC) [Mass/Vol]on 02-19-2022 MCHC (RBC) [Mass/Vol] 34.4 g/dL 32-36 [facility] Work Phone: No Panel Informationon 02-19 D-Dimer Quantitative (PE/DVT) 0.50 FEU/ug/m 0.27-0.49 [facility] Work Phone: Comment on above: D-Dimer ELEVATED (>0 .49): Additional studies and clinicalassessments are indicated to conclude diagnosis of:Deep Vein Thrombosis (DVT) or Pulmonary Embolism (PE)CRITICAL VALUE VERIFIED. CALLED TO TAPAN MARTELL02/19/[id number] Sonal Allred.RESULTS READ BACK BY SAME . Estimated Creatinine Clearance Calc 60.04 ml/min [facility] Work Phone: Estimated GFR (MDRD) Amer 74 mL/min >60 [facility] Work Phone: Comment on above: GFR Calc Estimated GFR (MDRD) Non-Af Amer 61 mL/min >60 [facility] Work Phone: Comment on above: Non- GFR Calc Troponin I High Sensitivity 7 pg/mL 3.0-54.0 [facility] Work Phone: Comment on above: Please Note: New Rianna t Units and Gender Specific Reference Ranges. For more information see Policy Stat Procedure [place] High Sensitivity Troponin (TNIH) and attachments. Platelets bldon 02-19-2022 Platelets (Bld) [#/Vol] 212 10*3/uL 150-450 [facility] Work Phone: [phone] Serum or plasma calcium camilo urement (mass/volume)on 02-19-2022 Calcium [Mass/Vol] 9.1 mg/dL 8.5-10.1 [facility] Work Phone: [phone] Serum or plasma creatinine m easurement (mass/volume)on 02-19-2022 Creatinine [Mass/Vol] 0.98 mg/dL 0.55-1.02 [facility] Work Phone: Comment on above: The validity of the calculated GFR & GFRAA in patients over 70 years has not been determined. Clinical correlation is essential. Serum or plasma urea nitroge n measurement (mass/volume)on 02-19-2022 Urea nitrogen [Mass/Vol] 20 mg/dL 7-18 [facility] Work Phone: Thin prep Papanicolaou smear with manual screeningon 02-19-2022 Thin prep Papanicolaou smear with manual screening 6 5-15 [facility] Work Phone: No Panel Informationon 03-14 IMPRESSION: Degenerative changes as discussed Train Station Server: VIOLA Transcribe Date/Time: Mar 14 2020 11:59A Dictated by : ADIS NAZARIO DO This examination was interpreted and the report reviewed and electronically signed by: ADIS NAZARIO DO on Mar 14 2020 12:01PM [facility] DIVISION OF RADIOLOGY Radiology Study observation (narrative) [facility] No Panel InformationOrdered By: Ccf Provider on 03-14-2020 [facility] XR HIP BILAT 5V PEL/AP/LAT E [...] dislocations are seen. DIVISION OF RADIOLOGY Provider, [facility] Sabrina [facility] - 03/14/2020 * * *Final Report* [...] seen. IMPRESSION IMPRESSION: Degenerative changes as discussed Train Station Server: [facility] Transcribe Date/Time: Mar 14 2020 11:59A Dictated by : ADIS NAZARIO DO This examination was interpreted and the report reviewed and electronically signed by: ADIS NAZARIO DO on Mar 14 2020 12:01PM [facility] XR Lumbar spine 3 Viewson * * [...] dislocations are seen. DIVISION OF RADIOLOGY Provider, [facility] - 03/14/2020 * * *Final Report* * [...] seen. IMPRESSION IMPRESSION: Degenerative changes as discussed Train Station Server: [facility] Transcribe Date/Time: Mar 14 2020 11:59A Dictated by : ADIS NAZARIO DO This examination was interpreted and the report reviewed and electronically signed by: ADIS NAZARIO DO on Mar 14 2020 12:01PM EST [facility] Vitamin D 25 Hydroxyon 11-07 Vitamin D 25 Hydroxy 27.6 ng/mL Low 31.0-80.0 [facility] Comment on above: Performed By: #### V ITD #### [facility] Laboratories Routine Lab [address] [id number] Free T4on 06-01-2019 Free T4 [Mass/Vol] 1.0 ng/dL Normal 0.9-1.7 [facility] Comment on above: Performed By: #### F T4, TSH #### [facility] Laboratories Routine Lab [address] [place], [place] [id number] TSHon 06-01-2019 TSH Qn 5.940 uU/mL High 0.270-4.200 [facility] Comment on above: Performed By: #### F T4, TSH #### [facility] Routine Lab [address] [place], [place] [id number] Vital Signs Date Time Vital Sign Value Performing Clinician Pantera leiva 07-14-2024 14:14-0400 Body mass index (BMI) [Ratio] 49.02 kg/m2 PRINT LINE INSPECTOR.FURNISHINGS CONSERVATOR Work Phone: [facility] 07-14-2024 14:14-0400 Body weight 141.98 kg PRINT LINE INSPECTOR.FURNISHINGS CONSERVATOR Work Phone: [facility] 07-14-2024 14:14-0400 Diastolic blood pressure 78 mm[Hg] PRINT LINE INSPECTOR.FURNISHINGS CONSERVATOR Work Phone: [facility] 07-14-2024 14:14-0400 Heart rate 70 /min PRINT LINE INSPECTOR.FURNISHINGS CONSERVATOR Work Phone: [facility] 07-14-2024 14:14-0400 SaO2% (BldA) [Mass fraction] 98 % PRINT LINE INSPECTOR.FURNISHINGS CONSERVATOR Work Phone: [facility] 07-14-2024 14:14-0400 Systolic blood pressure 126 mm[Hg] PRINT LINE INSPECTOR.FURNISHINGS CONSERVATOR Work Phone: [facility] 02-03-2024 10:07-0500 Body height 170.2 cm PRINT LINE INSPECTOR.FURNISHINGS CONSERVATOR Work Phone: [facility] 02-03-2024 10:07-0500 Body mass index (BMI) [Ratio] 48.08 kg/m2 Angelika Older PRINT LINE INSPECTOR.FURNISHINGS CONSERVATOR Work Phone: [facility] 02-03-2024 10:07-0500 Body temperature 96.91 [degF] Angelika Older PRINT LINE INSPECTOR.FURNISHINGS CONSERVATOR Work Phone: [facility] 02-03-2024 10:07-0500 Body weight 139.25 kg Angelika Older PRINT LINE INSPECTOR.FURNISHINGS CONSERVATOR Work Phone: [facility] 02-03-2024 10:07-0500 Diastolic blood pressure 72 mm[Hg] Angelika Older PRINT LINE INSPECTOR.FURNISHINGS CONSERVATOR Work Phone: [facility] 02-03-2024 10:07-0500 Heart rate 85 /min Angelika Older PRINT LINE INSPECTOR.FURNISHINGS CONSERVATOR Work Phone: [facility] 02-03-2024 10:07-0500 Respiratory rate 22 /min Angelika Older PRINT LINE INSPECTOR.FURNISHINGS CONSERVATOR Work Phone: [facility] 02-03-2024 10:07-0500 SaO2% (BldA) [Mass fraction] 97 % Angelika Older PRINT LINE INSPECTOR.FURNISHINGS CONSERVATOR Work Phone: [facility] 02-03-2024 10:07-0500 Systolic blood pressure 112 mm[Hg] Older PRINT LINE INSPECTOR.FURNISHINGS CONSERVATOR Work Phone: [facility] 06-14-2023 19:23-0400 Body temperature 98.3 [degF] Dr. Nigel Carrillo Work Phone: [facility] 06-14-2023 19:23-0400 Diastolic blood pressure 84 mm[Hg] Dr. Nigel Carrillo Work Phone: [facility] 06-14-2023 19:23-0400 Heart rate 88 /min Dr. Nigel Carrillo Work Phone: [facility] 06-14-2023 19:23-0400 Respiratory rate 16 /min Dr. Nigel Carrillo Work Phone: [facility] 06-14-2023 19:23-0400 SaO2% (BldA) [Mass fraction] 100 % Dr. Nigel Carrillo Work Phone: [facility] 06-14-2023 19:23-0400 Systolic blood pressure 151 mm[Hg] Dr. Nigel Carrillo Work Phone: [facility] 06-14-2023 16:46-0400 Body height 170.[address] Nigel Carrillo Work Phone: [facility] 06-14-2023 16:46-0400 Body mass index (BMI) [Ratio] 54.3 kg/m2 Dr. Nigel Carrillo Work Phone: [facility] 06-14-2023 16:46-0400 Body weight 157.[address] Nigel Carrillo Work Phone: [facility] 06-10-2023 08:51-0400 Body mass index (BMI) [Ratio] 52.7 kg/m2 Dr. Nigel Carrillo Work Phone: [facility] 06-10-2023 08:51-0400 Body weight 157.[address] Nigel Carrillo Work Phone: [facility] 06-03-2023 11:22-0400 Heart rate 69 /min Nba Caceres MD Work Phone: [facility] 06-03-2023 11:22-0400 Respiratory rate 16 /min Nba Ccaeres MD Work Phone: [facility] 06-03-2023 11:22-0400 SaO2% (BldA) [Mass fraction] 96 % Nba Caceres MD Work Phone: [facility] 06-02-2023 17:40-0400 Body mass index (BMI) [Ratio] 54.35 kg/m2 Angelika Older PRINT LINE INSPECTOR.FURNISHINGS CONSERVATOR Work Phone: [facility] 06-02-2023 17:40-0400 Body weight 157.4 kg Angelika Older PRINT LINE INSPECTOR.FURNISHINGS CONSERVATOR Work Phone: [facility] 06-02-2023 17:40-0400 Diastolic blood pressure 90 mm[Hg] Angeilka Older PRINT LINE INSPECTOR.FURNISHINGS CONSERVATOR Work Phone: [facility] 06-02-2023 17:40-0400 Heart rate 74 /min Angelika Older PRINT LINE INSPECTOR.FURNISHINGS CONSERVATOR Work Phone: [facility] 06-02-2023 17:40-0400 Respiratory rate 16 /min Angelika Older PRINT LINE INSPECTOR.FURNISHINGS CONSERVATOR Work Phone: [facility] 06-02-2023 17:40-0400 SaO2% (BldA) [Mass fraction] 96 % Angelika Older PRINT LINE INSPECTOR.FURNISHINGS CONSERVATOR Work Phone: [facility] 06-02-2023 17:40-0400 Systolic blood pressure 136 mm[Hg] Angelika Older PRINT LINE INSPECTOR.FURNISHINGS CONSERVATOR Work Phone: [facility] 03-30-2023 13:02-0500 Body temperature 97.2 [degF] Brionna Katt PRINT LINE INSPECTOR.FURNISHINGS CONSERVATOR Work Phone: [facility] 03-30-2023 13:02-0500 Body weight 157.4 kg Brionna Katt PRINT LINE INSPECTOR.FURNISHINGS CONSERVATOR Work Phone: [facility] 03-30-2023 13:02-0500 Diastolic blood pressure 76 mm[Hg] Brionna Katt PRINT LINE INSPECTOR.FURNISHINGS CONSERVATOR Work Phone: [facility] 03-30-2023 13:02-0500 Heart rate 77 /min Brionna Katt PRINT LINE INSPECTOR.FURNISHINGS CONSERVATOR Work Phone: [facility] 03-30-2023 13:02-0500 Respiratory rate 20 /min Brionna Katt PRINT LINE INSPECTOR.FURNISHINGS CONSERVATOR Work Phone: [facility] 03-30-2023 13:02-0500 SaO2% (BldA) [Mass fraction] 97 % Brionna Katt PRINT LINE INSPECTOR.FURNISHINGS CONSERVATOR Work Phone: [facility] 03-30-2023 13:02-0500 Systolic blood pressure 110 mm[Hg] Brionna Katt PRINT LINE INSPECTOR.FURNISHINGS CONSERVATOR Work Phone: [facility] 02-19-2022 22:46-0500 Heart rate 73 /min [facility] Work Phone: 02-19-2022 22:46-0500 Respiratory rate 18 /min [facility] Work Phone: 02-19-2022 22:46-0500 SaO2% (BldA) [Mass fraction] 93 % [facility] Work Phone: 02-19-2022 18:09-0500 Body height 172.72 cm [facility] Work Phone: 02-19-2022 18:09-0500 Body mass index (BMI) [Ratio] 52.4 kg/m2 [facility] Work Phone: 02-19-2022 18:09-0500 Body temperature 98.3 [degF] [facility] Work Phone: 02-19-2022 18:09-0500 Body weight 156.5 kg [facility] Work Phone: 02-19-2022 18:09-0500 Diastolic blood pressure 77 mm[Hg] [facility] Work Phone: 02-19-2022 18:09-0500 Systolic blood pressure 165 mm[Hg] [facility] Work Phone: Encounters Encounter Date Encounter Type [...] Start: 10-24-2024 End: 10-24-2024 ambulatory NIGEL CARRILLO Facility:[facility] Start: 10-11-2024 ambulatory Gayathri Gilbert ty:[facility] Start: 09-13-2024 End: 09-13-2024 ambulatory ANGELIKA OLDER Facility:[facility] Start: 09-08-2024 End: 09-08-2024 Refill Nigel Carrillo MD Work Phone: [facility] [place] Comment on above: Refill Request Start: 08-17-2024 End: 08-17-2024 Telemedicine consultation with patient Angelika Older PRINT LINE INSPECTOR.FURNISHINGS CONSERVATOR Work Phone: [facility] [place] Start: 08-17-2024 End: 08-17-2024 ambulatory Angelika Older PRINT LINE INSPECTOR.FURNISHINGS CONSERVATOR Work Phone: [facility] [place] Comment on above: Anxiety and depressi on (Primary Dx); Dizziness Start: 08-07-2024 End: 08-17-2024 Telephone encounter Angelika Older PRINT LINE INSPECTOR.FURNISHINGS CONSERVATOR Work Phone: [facility] [place] Comment on above: Angel sosa Start: 07-21-2024 End: 09-20-2024 Follow-up encounter Angelika Older PRINT LINE INSPECTOR.FURNISHINGS CONSERVATOR Work Phone: [facility] [place] Start: 07-19-2024 End: 07-19-2024 Transcribe Orders Doin Coronado PA-C Work Phone: [facility] [place] Comment on above: Other specified hear ing loss, unspecified ear (Primary Dx) Start: 07-14-2024 End: 07-14-2024 Office outpatient visit 25 minutes Angelika Older PRINT LINE INSPECTOR.FURNISHINGS CONSERVATOR Work Phone: [facility] [place] Comment on above: Dizziness (Primary D x); Anxiety and depression; Tinnitus, bilateral Start: 07-14-2024 End: 07-18-2024 ambulatory Angelika Older PRINT LINE INSPECTOR.FURNISHINGS CONSERVATOR Work Phone: [facility] [place] Comment on above: Gabapentin Start: 07-05-2024 End: 07-05-2024 Follow-up encounter Angelika Older PRINT LINE INSPECTOR.FURNISHINGS CONSERVATOR Work Phone: [facility] [place] Start: 06-28-2024 End: 06-28-2024 ambulatory ANGELIKA OLDER Facility:[facility] Start: 06-28-2024 End: 06-28-2024 ambulatory ANGELIKA OLDER Facility:[facility] Start: 05-18-2024 End: 05-18-2024 Telephone encounter Nigel Carrillo MD Work Phone: [facility] [place] Comment on above: Orders (walker) Start: 05-09-2024 End: 06-09-2024 ambulatory Nigel Carrillo MD Work Phone: [facility] [place] Start: 05-04-2024 End: 05-04-2024 ambulatory Angelika Older PRINT LINE INSPECTOR.FURNISHINGS CONSERVATOR Work Phone: [facility] [place] Comment on above: Anxiety and depressi on (Primary Dx); Other fatigue; Vitamin B12 deficiency; Function kidney decreased; Ambulatory dysfunction Start: 05-04-2024 End: 05-04-2024 Telemedicine consultation with patient Angelika Wilson PRINT LINE INSPECTOR.FURNISHINGS CONSERVATOR Work Phone: [facility] [place] Start: 03-08-2024 End: 03-08-2024 Telephone encounter Angelika Older PRINT LINE INSPECTOR.FURNISHINGS CONSERVATOR Work Phone: [facility] [place] Comment on above: Erroneous encounter- disregard Start: 02-25-2024 End: 03-01-2024 Telephone encounter Angelika Older PRINT LINE INSPECTOR.FURNISHINGS CONSERVATOR Work Phone: [facility] [place] Comment on above: Refill Request Start: 02-14-2024 End: 03-08-2024 Telephone encounter Angelika Older PRINT LINE INSPECTOR.FURNISHINGS CONSERVATOR Work Phone: [facility] [place] Comment on above: Results; fax form fo r lift chair Start: 02-03-2024 End: 02-03-2024 ambulatory ANGELIKA OLDER Facility:[facility] Start: 02-03-2024 End: 02-03-2024 Patient encounter procedure Angelika Wilson PRINT LINE INSPECTOR.FURNISHINGS CONSERVATOR Work Phone: [facility] [place] Comment on above: Ambulatory dysfuncti on (Primary Dx); Lumbar and sacral arthritis; Lives alone; Other fatigue; Anxiety and depression; Hypothyroid; Encounter for immunization; Lipid screening; Insomnia, unspecified type Start: 12-27-2023 End: 12-30-2023 Telephone encounter Nigel Carrillo MD Work Phone: Family [facility] [place] Start: 12-01-2023 End: 12-01-2023 Telephone encounter Angelika Older PRINT LINE INSPECTOR.FURNISHINGS CONSERVATOR Work Phone: [facility] [place] Comment on above: Orders; Appointment Start: 09-23-2023 Telephone encounter Angelika Older PRINT LINE INSPECTOR.FURNISHINGS CONSERVATOR Work Phone: Internal Medicine [place] Comment on above: Patient Update Start: 07-06-2023 Telephone encounter Nba Caceres MD Work Phone: [facility] [place] Comment on above: Patient Question Start: 06-29-2023 Telephone encounter Angelika Wilson PRINT LINE INSPECTOR.FURNISHINGS CONSERVATOR Work Phone: [facility] [place] Comment on above: Medication Question Start: 06-28-2023 Telephone encounter Nigel el MD Work Phone: Internal [facility] [place] Start: 06-23-2023 Telephone encounter Nigel el MD Work Phone: [facility] [place] Comment on above: [facility] Start: 06-17-2023 Telephone encounter Nigel el MD Work Phone: Internal Medicine [place] Comment on above: Orders Start: 06-14-2023 End: 06-14-2023 Emergency department patient visit Dr. Nigel Carrillo Work Phone: [facility] Work Phone: Start: 06-14-2023 ambulatory Nigel Aldrich Work Phone: Internal [facility] [place] Comment on above: Chest pressure Start: 06-10-2023 End: 06-10-[address] Nigel Carrillo Work Phone: [facility] [facility] Work Phone: Start: 06-09-2023 ambulatory Nigel Aldrich Work Phone: Internal Medicine [facility] [place] Start: 06-04-2023 Telephone encounter Angelika Wilson PRINT LINE INSPECTOR.FURNISHINGS CONSERVATOR Work Phone: Internal Medicine [place] Comment on above: [employer] Start: 06-03-2023 Telephone encounter Nba Caceres MD Work Phone: [facility] Comment on above: Injection Questions Lumbar and sacral ar thritis (Primary Dx); Lumbar radiculopathy Start: 06-03-2023 End: 06-03-2023 Subsequent hospital visit by physician Ai [facility] [place] Work Phone: Radiology Comment on above: Acute pain of right knee [M25.561] Start: 06-03-2023 End: 06-03-2023 Patient encounter procedure Nba Caceres MD Work Phone: [facility] Comment on above: Lumbar radiculopathy (Primary Dx); Lumbar and sacral arthritis; Ambulatory dysfunction; Chronic bilateral low back pain with sciatica, sciatica laterality unspecified Start: 06-03-2023 End: 06-03-2023 ambulatory NBA CACERES Facility:[facility] Start: 06-02-2023 End: 06-02-2023 Patient encounter procedure Angelika Wilson APRN.CNP Work Phone: [facility] [place] Comment on above: Lumbar and sacral ar thritis (Primary Dx); Ambulatory dysfunction; Chronic bilateral low back pain with sciatica, sciatica laterality unspecified; Acute pain of right knee Start: 06-02-2023 Telephone encounter Angelika Wilson APRN.FURNISHINGS CONSERVATOR Work Phone: [facility] [place] Comment on above: Orders Start: 05-31-2023 Refill Nigel Aldrich Work Phone: [facility] [place] Comment on above: Refill Request Start: 05-14-2023 Telephone encounter Brionna lamb PRINT LINE INSPECTOR.FURNISHINGS CONSERVATOR Work Phone: Family [facility] Comment on above: Toothache Start: 04-21-2023 Telephone encounter Nigel el MD Work Phone: [facility] [place] Comment on above: Incontinent supply o rder from [employer] Start: 03-30-2023 End: 03-30-2023 Patient encounter procedure Brionna Bolivar PRINT LINE INSPECTOR.FURNISHINGS CONSERVATOR Work Phone: [facility] [place] Comment on above: Pain, dental (Primar y Dx) Start: 03-29-2023 Telephone encounter Nigel el MD Work Phone: [facility] [place] Comment on above: Patient Question (An tibiotic for abscessed tooth) Start: 01-28-2023 End: 01-28-2023 ambulatory Angelika Older PRINT LINE INSPECTOR.FURNISHINGS CONSERVATOR Work Phone: Internal [facility] [place] Comment on above: Dyspnea on exertion (Primary Dx); Palpitations; Lumbar and sacral arthritis; Function kidney decreased; Hypothyroid; Elevated glucose Start: 01-28-2023 End: 01-28-2023 Telemedicine consultation with patient Angelika Wilson PRINT LINE INSPECTOR.FURNISHINGS CONSERVATOR Work Phone: [facility] [place] Start: 12-24-2022 End: 12-24-2022 Subsequent hospital visit by physician Ai [facility] [place] Work Phone: Radiology Comment on above: Dyspnea on exertion [R06.09] Start: 11-10-2022 ambulatory Nigel Aldrich Work Phone: Internal Medicine [facility] Start: 11-10-2022 Refill Angelika Older PRINT LINE INSPECTOR .FURNISHINGS CONSERVATOR Work Phone: Internal [facility] [place] Comment on above: Refill Request Start: 11-09-2022 Refill Angelika Older PRINT LINE INSPECTOR .FURNISHINGS CONSERVATOR Work Phone: Internal Medicine [place] Comment on above: Refill Request Start: 07-01-2022 ambulatory Nigel Aldrich Work Phone: Internal [facility] Start: 06-03-2022 End: 06-03-2022 ambulatory Angelika Older PRINT LINE INSPECTOR.FURNISHINGS CONSERVATOR Work Phone: Internal Medicine [place] Comment on above: Insomnia, unspecifie d type (Primary Dx); Obstructive sleep apnea syndrome; Ambulatory dysfunction; Lumbar and sacral arthritis Start: 06-03-2022 End: 06-03-2022 Telemedicine consultation with patient Angelika Older PRINT LINE INSPECTOR.FURNISHINGS CONSERVATOR Work Phone: [facility] [place] Start: 04-20-2022 Telephone encounter Nigel el MD Work Phone: [facility] [place] Comment on above: Patient Update Start: 04-09-2022 Telephone encounter Nigel el MD Work Phone: Internal Medicine [place] Comment on above: Medical Supplies Start: 04-06-2022 Telephone encounter Nigel el MD Work Phone: [facility] [place] Comment on above: Orders (Compression gloves) Refill Request Start: 03-31-2022 Refill Nigel Aldrich Work Phone: [facility] Comment on above: Refill Request Start: 03-30-2022 Refill Angelika Older PRINT LINE INSPECTOR .FURNISHINGS CONSERVATOR Work Phone: Internal Medicine [place] Comment on above: Refill Request Start: 02-19-2022 End: 02-19-2022 Emergency department patient visit [facility] Start: 02-03-2022 Refill Angelika Older PRINT LINE INSPECTOR .FURNISHINGS CONSERVATOR Work Phone: Internal Medicine [place] Comment on above: Refill Request Start: 01-26-2022 End: 01-26-2022 ambulatory Angelika Older PRINT LINE INSPECTOR.FURNISHINGS CONSERVATOR Work Phone: Internal Medicine [place] Comment on above: Insomnia, unspecifie d type (Primary Dx) Start: 01-26-2022 End: 01-26-2022 Telemedicine consultation with patient Angelika Older PRINT LINE INSPECTOR.FURNISHINGS CONSERVATOR Work Phone: [facility] [place] Start: 01-16-2022 Refill Nigel Aldrich Work Phone: Internal Medicine [place] Comment on above: Refill Request Orders (Prescription for Scooter) Start: 12-29-2021 End: 12-29-2021 ambulatory Angelika Older PRINT LINE INSPECTOR.FURNISHINGS CONSERVATOR Work Phone: Internal [facility] [place] Comment on above: Insomnia, unspecifie d type (Primary Dx); Reactive depression; Obstructive sleep apnea syndrome Start: 12-29-2021 End: 12-29-2021 Telemedicine consultation with patient Angelika Older PRINT LINE INSPECTOR.FURNISHINGS CONSERVATOR Work Phone: [facility] [place] Start: 11-24-2021 Refill Angelika Older PRINT LINE INSPECTOR .FURNISHINGS CONSERVATOR Work Phone: Internal [facility] [place] Comment on above: Refill Request Start: 10-20-2021 Refill Nigel Ganta M D Work Phone: [facility] [place] Comment on above: Refill Request Start: 10-01-2021 Telephone encounter Nigel el MD Work Phone: [facility] [place] Comment on above: Order for scooter Start: 09-09-2021 Telephone encounter Nigel el MD Work Phone: [facility] [place] Comment on above: DME company Start: 09-08-2021 Telephone encounter Nigel el MD Work Phone: [facility] [place] Comment on above: Orders (pt here now for thyroid labs) Start: 09-02-2021 Telephone encounter Nigel el MD Work Phone: Internal Medicine [place] Comment on above: Patient Question Start: 07-30-2021 ambulatory Nigel Arorata M D Work Phone: [facility] [place] Start: 07-21-2021 Telephone encounter Nigel el MD Work Phone: Internal Medicine [place] Comment on above: Patient Update Start: 07-08-2021 ambulatory Nigel Ganta M D Work Phone: Internal [facility] [place] Start: 07-03-2021 Refill Nigel Ganta M D Work Phone: [facility] [place] Comment on above: Refill Request Medication Request Start: 06-10-2021 Telephone encounter Nigel el MD Work Phone: Internal Medicine [place] Comment on above: Meloxicam issue Start: 06-09-2021 Refill Nigel Ganta M D Work Phone: [facility] [place] Comment on above: Refill Request Start: 06-06-2021 [...] Start: 05-07-2021 End: 05-07-2021 ambulatory Angelika Wilson APRN.CNP Work Phone: [facility] [place] Comment on above: History of recent ho spitalization (Primary Dx); Kidney stones; Pyelonephritis; Anemia, unspecified type; Hypothyroidism, unspecified type; Mixed hyperlipidemia; Vitamin D deficiency Start: 05-07-2021 End: 05-07-2021 Telemedicine consultation with patient Angelika Wilson APRHIRAL Work Phone: [facility] [place] Start: 05-06-2021 Telephone encounter Angelika Katie WINTER Work Phone: Internal Medicine [place] Comment on above: Patient Update Start: 09-06-2020 Telephone encounter Zhengpercy Camargo golden [facility] Comment on above: New Patient Start: 03-14-2020 End: 03-14-2020 Subsequent hospital visit by physician Ai [facility] [place] Work Phone: Radiology Comment on above: Lumbar and sacral ar thritis [M47.817] Procedures Date Procedure Procedure Detail Performing Clinician Start: 10-24-2024 HEARING TEST/AUDIOGRAM Doni Coroando PA-C Work Phone: Start: 02-03-2024 Lipid 1996 panel - S callum or Plasma Angelika Wilson APRN.FURNISHINGS CONSERVATOR Work Phone: Start: 06-14-2023 Plain chest X-ray Dr. Dianne Carrillo Work Phone: Start: 11-12-2022 Lipid 1996 panel - S callum or Plasma Angelika Older FURNISHINGS CONSERVATOR Work Phone: Start: 02-19-2022 Plain chest X-ray Start: 09-08-2021 Lipid 1996 panel - S callum or Plasma Angelika Wilson APRN.FURNISHINGS CONSERVATOR Work Phone: Start: 03-14-2020 Radex hips bilateral with pelvis minimum 5 views Nigel Carrillo MD Work Phone: Plan of Treatment Date Care Activity Detail Author Start: 02-02-2029 Lipid panel Lipid Screening [facility] Start: 11-13-2027 Lipid 1996 panel - Serum or Plasma Lipid Screening [facility] Start: 11-13-2027 Lipid panel Lipid Screening [facility] Start: 07-15-2027 Diabetes Screening Diabetes Screening [facility] Start: 06-29-2027 Diabetes Screening Diabetes Screening [facility] Start: 02-02-2027 Diabetes Screening Diabetes Screening [facility] Start: 09-08-2026 Lipid 1996 panel - Serum or Plasma Lipid Screening [facility] Start: 09-08-2026 LIPID SCREEN LIPID SCREEN [facility] Start: 06-02-2026 Diabetes Screening Diabetes Screening [facility] Start: 12-21-2025 Diabetes Screening Diabetes Screening [facility] Start: 11-12-2025 Diabetes Screening Diabetes Screening [facility] Start: 09-13-2025 Annual PCP Team Chronic Disease Visit Annual PCP Team Chronic Disease Visit [facility] Start: 08-17-2025 Annual PCP Team Chronic Disease Visit Annual PCP Team Chronic Disease Visit [facility] Start: 07-14-2025 Annual PCP Team Chronic Disease Visit Annual PCP Team Chronic Disease Visit [facility] Start: 06-28-2025 Annual PCP Team Chronic Disease Visit Annual PCP Team Chronic Disease Visit [facility] Start: 05-14-2025 LIPID SCREEN LIPID SCREEN [facility] Start: 05-04-2025 Annual PCP Team Chronic Disease Visit Annual PCP Team Chronic Disease Visit [facility] Start: 02-02-2025 Annual PCP Team Chronic Disease Visit Annual PCP Team Chronic Disease Visit [facility] Start: 02-02-2025 Covid-19 Vaccine () Covid-19 Vaccine () [facility] Comment on above: Postponed from 10/10/2023 (Declined at t his time) Start: 02-02-2025 Hepatitis C screening Hepatitis C Screening [facility] Comment on above: Postponed from 02/10/1978 (Declined at t his time) Start: 02-02-2025 HIV screening HIV Screening [facility] Comment on above: Postponed from 02/10/1978 (Declined at t his time) Start: 02-02-2025 Pneumococcal Vaccine: 50+ (1 of 1 - PCV) Pneumococcal Vaccine: 50+ (1 of 1 - PCV) [facility] Comment on above: Postponed from 02/10/2010 (Declined at t his time) Start: 02-02-2025 RSV Vaccine (1 - Risk 60-74 years 1-dose series) RSV Vaccine (1 - Risk 60-74 years 1-dose series) [facility] Comment on above: Postponed from 2020 (Declined at t his time) Start: 02-02-2025 Shingrix Vaccine (1 of 2) Shingrix Vaccine (1 of 2) [facility] Comment on above: Postponed from 02/10/2010 (Declined at t his time) Start: 02-02-2025 Urine microalbumin profile DTaP,Tdap,Td Vaccine (1 - Tdap) [facility] Comment on above: Postponed from 02/10/1979 (Declined at t his time) Start: 10-24-2024 End: 10-24-2024 Patient encounter procedure 10/24/2024 2:40 PM EDT Office Visit Otolaryngology [address] [place] [address] Doni Coronado PA-C [address] [place] [id number] Dizziness [R42] Otolaryngology Comment on above: Dizziness [R42] Start: 10-24-2024 End: 10-24-2024 Patient encounter procedure 10/24/2024 1:30 PM EDT Office Visit Audiology [address] [place] [address] Rupali Merritt [address] [address] [place] [address] Dizziness [R42] Audiology Comment on above: Dizziness [R42] Start: 10-09-2024 Influenza vaccination Influenza Vaccine (#1) [facility] Start: 09-29-2024 End: 09-29-2024 Patient encounter procedure 09/29/2024 1:40 PM EDT Office Visit [facility] Medicine [place] [address] [place], [place] [id number] Nigel Carrillo MD [address] [place], [place] [id number] 3 month follow up [facility] [place] Comment on above: 3 month follow up Start: 09-25-2024 End: 09-25-2024 Patient encounter procedure 09/25/2024 12:50 PM EDT Appointment Mammogram [address] [place] [address] Mammogram Start: 09-13-2024 End: 09-13-2024 Patient encounter procedure 09/13/2024 6:00 PM EDT Office Visit [facility] [place] [address] [place] [address] Angelika Wilson PRINT LINE INSPECTOR.FURNISHINGS CONSERVATOR [address] [place] [address] Assisted living form [facility] [place] Comment on above: Assisted living form Start: 09-08-2024 DIABETES SCREEN DIABETES SCREEN [facility] Start: 09-08-2024 Diabetes Screening Diabetes Screening [facility] Start: 09-07-2024 End: 09-07-2024 Patient encounter procedure 09/07/2024 2:40 PM EDT Office Visit Otolaryngology [address] [place] [id number] Doni Coronado PA-C [address] [place] [address] Dizziness [R42] Otolaryngology Comment on above: Dizziness [R42] Start: 09-07-2024 End: 09-07-2024 Patient encounter procedure 09/07/2024 1:30 PM EDT Office Visit Audiology [address] [place] [address] Trudy Smith, AUD [address] [place] [address] Dizziness [R42] Audiology Comment on above: Dizziness [R42] Start: 08-17-2024 End: 08-17-2024 Patient encounter procedure 08/17/2024 1:40 PM EDT Office Visit [facility] Medicine [place] [address] [facility] [place] [address] Angelika Wilson, PRINT LINE INSPECTOR.FURNISHINGS CONSERVATOR [address] [place] [address] 4 week Internal Medicine [place] Comment on above: 4 week Start: 08-01-2024 End: 08-01-2024 Patient encounter procedure 08/01/2024 9:45 AM EDT Office Visit [facility] [address] [place], [place] [id number] Genna Lancaster, OD [address] [place] [address] Diagnostics[facility] [address] [address] routine eye exam Ophthalmology Comment on above: routine eye exam Start: 07-19-2024 End: 10-18-2024 Basic metabolic 2000 panel - Serum or Plasma BASIC METABOLIC PANEL Lab Routine Hyponatremia Expected: 07/19/2024 (Approximate), Expires: 10/18/2024 [facility] Work Phone: Comment on above: Expected: 07/19/2024 (Approximate), Expi res: 10/18/2024 Start: 07-10-2024 End: 07-10-2024 Follow-up encounter 07/10/2024 10:20 AM EDT [facility] [place] [address] [place], [place] [phone] Angelika Wilson APRN.FURNISHINGS CONSERVATOR [address] [place], [place] [id number] This is a follow up about kidney function. Internal Medicine [place] Comment on above: This is a follow up about kidney functio n. Start: 06-01-2024 Annual PCP Team Chronic Disease Visit Annual PCP Team Chronic Disease Visit [facility] Start: 05-04-2024 End: 05-04-2024 ambulatory 05/04/2024 10:00 AM EDT [facility] [place] [address] [place], [place] [phone] Angelika Wilson PRINT LINE INSPECTOR.FURNISHINGS CONSERVATOR [address] [place], [place] [phone] 3 month follow ujp-labs--virtual [facility] [place] Comment on above: 3 month follow ujp-labs--virtual Start: 03-30-2024 Annual PCP Team Chronic Disease Visit Annual PCP Team Chronic Disease Visit [facility] Start: 03-14-2024 End: 03-14-2024 ambulatory 03/14/2024 1:00 PM EST Results Only [place] [facility] Draw Station [address] [facility] [place] [address] [place] [facility] Draw Station Start: 02-28-2024 End: 05-29-2024 Basic metabolic 2000 panel - Serum or Plasma BASIC METABOLIC PANEL Lab Routine Function kidney decreased Expected: 02/28/2024 (Approximate), Expires: 05/29/2024 [facility] Work Phone: Comment on above: Expected: 02/28/2024 (Approximate), Expi res: 05/29/2024 Start: 02-09-2024 [facility] Annual Wellness Visit [facility] Annual Wellness Visit [facility] Start: 02-03-2024 End: 05-04-2024 Cobalamin (Vitamin B12) [Mass/volume] in Serum or Plasma [facility] Comment on above: Expected: 02/03/2024, Expires: Start: 02-03-2024 End: 05-04-2024 Comprehensive metabolic 2000 panel - Serum or Plasma [facility] Comment on above: Expected: 02/03/2024, Expires: Start: 02-03-2024 End: 05-04-2024 Lipid 1996 panel - Serum or Plasma [facility] Work Phone: Comment on above: Expected: 02/03/2024, Expires: Start: 02-03-2024 End: 05-04-2024 Thyrotropin [Units/volume] in Serum or Plasma [facility] Comment on above: Expected: 02/03/2024, Expires: Start: 02-03-2024 End: 05-04-2024 Thyroxine (T4) free [Mass/volume] in Serum or Plasma [facility] Comment on above: Expected: 02/03/2024, Expires: Start: 02-03-2024 End: 05-04-2024 Triiodothyronine (T3) Free [Mass/volume] in Serum or Plasma [facility] Comment on above: Expected: 02/03/2024, Expires: Start: 01-29-2024 Annual PCP Team Chronic Disease Visit Annual PCP Team Chronic Disease Visit [facility] Start: 12-22-2023 Annual PCP Team Chronic Disease Visit Annual PCP Team Chronic Disease Visit [facility] Start: 12-22-2023 Colorectal Cancer Screening Colorectal Cancer Screening [facility] Comment on above: Postponed from 02/10/2005 (Declined at t his time) Start: 12-22-2023 Covid-19 Vaccine () Covid-19 Vaccine () [facility] Comment on above: Postponed from 10/09/2022 (Declined at t his time) Start: 12-22-2023 Hepatitis C Screening Hepatitis C Screening [facility] Comment on above: Postponed from 02/10/1978 (Declined at t his time) Start: 12-22-2023 Hepatitis C screening Hepatitis C Screening [facility] Comment on above: Postponed from 02/10/1978 (Declined at t his time) Start: 12-22-2023 HIV Screening HIV Screening [facility] Comment on above: Postponed from 02/10/1978 (Declined at t his time) Start: 12-22-2023 HIV screening HIV Screening [facility] Comment on above: Postponed from 02/10/1978 (Declined at t his time) Start: 12-22-2023 HPV Testing HPV Testing [facility] Comment on above: Postponed from 02/10/1990 (Declined at t his time) Start: 12-22-2023 Pap Testing Pap Testing [facility] Comment on above: Postponed from 02/10/1981 (Declined at t his time) Start: 12-22-2023 RSV Vaccine (1 - 1-dose 60+ series) RSV Vaccine (1 - 1-dose 60+ series) [facility] Comment on above: Postponed from 2020 (Declined at t his time) Start: 12-22-2023 RSV Vaccine (1 - Risk 60-74 years 1-dose series) RSV Vaccine (1 - Risk 60-74 years 1-dose series) [facility] Comment on above: Postponed from 2020 (Declined at t his time) Start: 12-22-2023 Screening for malignant neoplasm of cervix [facility] Comment on above: Postponed from 02/10/1990 (Declined at t his time) Postponed from 02/10 (Declined at this time) Start: 12-22-2023 Screening for malignant neoplasm of colon Colorectal Cancer Screening [facility] Comment on above: Postponed from 02/10/2005 (Declined at t his time) Start: 12-22-2023 Shingrix Vaccine (1 of 2) Shingrix Vaccine (1 of 2) [facility] Comment on above: Postponed from 02/10/2010 (Declined at t his time) Start: 12-22-2023 Urine microalbumin profile DTaP,Tdap,Td Vaccine (1 - Tdap) [facility] Comment on above: Postponed from 02/10/1979 (Declined at t his time) Start: 12-02-2023 End: 12-02-2023 Patient encounter procedure [facility] [place] Comment on above: 6 mo f/u Follow up Start: 10-10-2023 Covid-19 Vaccine ( season) Covid-19 Vaccine ( season) [facility] Start: 10-10-2023 Influenza vaccination [facility] Start: 08-26-2023 End: 08-26-2023 Follow-up encounter 08/26/2023 3:45 PM EDT [facility] [address] [place] [address] Josefina Abraham APRN.FURNISHINGS CONSERVATOR [address] [place], [place] [id number] Follow up from injection/2 month follow up [facility] Comment on above: Follow up from injection/2 month follow up Start: 08-23-2023 DIABETES SCREEN DIABETES SCREEN [facility] Start: 07-27-2023 End: 07-27-2023 Follow-up encounter [facility] [place] Comment on above: Follow up from injection/2 month follow up Start: 07-09-2023 End: 07-09-2023 Admission to same day surgery center 07/09/2023 2:30 PM EDT - 07/09/2023 3:00 PM EDT Surgery LD SURGERY [address] [place] [address] Nba Caceres MD [address] [address] LUMBAR EPIDURAL BLOCK W/INJECTION NON NEUROLYTIC W/IMAGE [...] 12:10 PM EDT Surgery LD SURGERY [address] [place] [address] Nba Caceres MD [address] [address] LUMBAR EPIDURAL BLOCK W/INJECTION NON NEUROLYTIC W/IMAGE [...] Lumbar and sacral arthritis [M47.817] Start: 06-14-2023 [facility] [facility] Start: 06-04-2023 ANNUAL PCP TEAM CHRONIC DISEASE VISIT ANNUAL PCP TEAM CHRONIC DISEASE VISIT [facility] Start: 06-02-2023 End: 06-02-2023 Patient encounter procedure 06/02/2023 5:40 PM EDT Office Visit [facility] [address] [place] [address] Angelika Wilson APRN.FURNISHINGS CONSERVATOR [address] [place] [address] discuss getting new lift chair [facility] Comment on above: discuss getting new lift chair Start: 04-09-2023 End: 07-09-2023 Basic metabolic 2000 panel - Serum or Plasma BASIC METABOLIC PNL Lab Routine Elevated glucose Expected: 04/09/2023 (Approximate), Expires: 07/09/2023 [facility] Work Phone: Comment on above: Expected: 04/09/2023 (Approximate), Expi res: 07/09/2023 Start: 04-09-2023 End: 07-09-2023 Hemoglobin A1c in Blood HGB A1C Lab Routine Elevated glucose Expected: 04/09/2023 (Approximate), Expires: 07/09/2023 [facility] Work Phone: Comment on above: Expected: 04/09/2023 (Approximate), Expi res: 07/09/2023 Start: 04-09-2023 End: 07-09-2023 Thyrotropin [Units/volume] in Serum or Plasma TSH BLD Lab Routine Hypothyroid Expected: 04/09/2023, Expires: 07/09/2023 [facility] Work Phone: Comment on above: Expected: 04/09/2023, Expires: Start: 01-26-2023 ANNUAL PCP TEAM CHRONIC DISEASE VISIT ANNUAL PCP TEAM CHRONIC DISEASE VISIT [facility] Start: 12-29-2022 ANNUAL PCP TEAM CHRONIC DISEASE VISIT ANNUAL PCP TEAM CHRONIC DISEASE VISIT [facility] Start: 11-11-2022 End: 01-11-2023 25-hydroxyvitamin D3 [Mass/volume] in Serum or Plasma VITAMIN D 25 HYDROXY Lab Routine Vitamin D deficiency Expected: 11/11/2022, Expires: 01/11/2023 [facility] Work Phone: Comment on above: Expected: 11/11/2022, Expires: 3 Start: 10-09-2022 Influenza vaccination [facility] Start: 09-08-2022 ANNUAL PCP TEAM CHRONIC DISEASE VISIT ANNUAL PCP TEAM CHRONIC DISEASE VISIT [facility] Start: 05-07-2022 ANNUAL PCP TEAM CHRONIC DISEASE VISIT ANNUAL PCP TEAM CHRONIC DISEASE VISIT [facility] Start: 10-09-2021 Influenza vaccination INFLUENZA (#1) [facility] Start: 09-08-2021 End: 11-08-2021 25-hydroxyvitamin D3 [Mass/volume] in Serum or Plasma [facility] Work Phone: Comment on above: Expected: 09/08/2021, Expires: 2 Start: 09-08-2021 End: 11-08-2021 CBC W Auto Differential panel - Blood [facility] Work Phone: Comment on above: Expected: 09/08/2021, Expires: 2 Start: 09-08-2021 End: 11-08-2021 Comprehensive metabolic 2000 panel - Serum or Plasma [facility] Work Phone: Comment on above: Expected: 09/08/2021, Expires: 2 Start: 09-08-2021 End: 11-08-2021 Hemoglobin A1c in Blood [facility] Work Phone: Comment on above: Expected: 09/08/2021, Expires: 2 Start: 09-08-2021 End: 11-08-2021 Lipid 1996 panel - Serum or Plasma [facility] Work Phone: Comment on above: Expected: 09/08/2021, Expires: 2 Start: 09-08-2021 End: 11-08-2021 Thyrotropin [Units/volume] in Serum or Plasma [facility] Work Phone: Comment on above: Expected: 09/08/2021, Expires: 2 Start: 07-08-2021 End: 09-07-2021 Renal function 2000 panel - Serum or Plasma RENAL FUNCTION PANEL Lab Routine Medication management Expected: 07/08/2021, Expires: 09/07/2021 [facility] Work Phone: Comment on above: Expected: 07/08/2021, Expires: 2 Start: 07-08-2021 End: 09-07-2021 SCHEDULE LAB TESTING SCHEDULE LAB TESTING Lab Routine Expected: 07/08/2021, Expires: 09/07/2021 [facility] Work Phone: Comment on above: Expected: 07/08/2021, Expires: 2 Start: 07-08-2021 End: 09-07-2021 Thyrotropin [Units/volume] in Serum or Plasma TSH BLD Lab Routine Hypothyroidism, unspecified type Expected: 07/08/2021, Expires: 09/07/2021 [facility] Work Phone: Comment on above: Expected: 07/08/2021, Expires: 2 Start: 05-07-2021 End: 07-07-2021 CBC W Auto Differential panel - Blood CBC + DIFF Lab Routine Anemia, unspecified type Expected: 05/07/2021, Expires: 07/07/2021 [facility] Work Phone: Comment on above: Expected: 05/07/2021, Expires: 2 Start: 05-07-2021 End: 07-07-2021 Comprehensive metabolic 2000 panel - Serum or Plasma COMP METABOLIC PANEL Lab Routine Mixed hyperlipidemia Expected: 05/07/2021, Expires: 07/07/2021 [facility] Work Phone: Comment on above: Expected: 05/07/2021, Expires: 2 Start: 05-07-2021 End: 07-07-2021 LIPID PANEL BASIC LIPID PANEL BASIC Lab Routine Mixed hyperlipidemia Expected: 05/07/2021, Expires: 07/07/2021 [facility] Work Phone: Comment on above: Expected: 05/07/2021, Expires: 2 Start: 05-07-2021 End: 07-07-2021 Thyrotropin [Units/volume] in Serum or Plasma TSH BLD Lab Routine Hypothyroidism, unspecified type Expected: 05/07/2021, Expires: 07/07/2021 [facility] Work Phone: Comment on above: Expected: 05/07/2021, Expires: 2 Start: 05-07-2021 End: 07-07-2021 VITAMIN D 25 HYDROXY VITAMIN D 25 HYDROXY Lab Routine Vitamin D deficiency Expected: 05/07/2021, Expires: 07/07/2021 [facility] Work Phone: Comment on above: Expected: 05/07/2021, Expires: 2 Start: 01-06-2021 COVID-19 VACCINE (4 - Booster for Pfizer series) COVID-19 VACCINE (4 - Booster for Pfizer series) [facility] Start: 10-31-2020 COVID-19 VACCINE (4 - Booster for Pfizer series) COVID-19 VACCINE (4 - Booster for Pfizer series) [facility] Start: 10-31-2020 Covid-19 Vaccine (4 - Pfizer series) Covid-19 Vaccine (4 - Pfizer series) [facility] Start: 2020 RSV Vaccine (1 - Risk 60-74 years 1-dose series) RSV Vaccine (1 - Risk 60-74 years 1-dose series) [facility] Start: 02-10-2010 SHINGRIX VACCINE (1 of 2) SHINGRIX VACCINE (1 of 2) [facility] Start: 02-10-2005 COLOGUARD (FIT-DNA) COLOGUARD (FIT-DNA) [facility] Start: 02-10-2005 Colonoscopy COLONOSCOPY [facility] Start: 02-10-2005 COLORECTAL CANCER SCREENING COLORECTAL CANCER SCREENING [facility] Start: 02-10-[address] COLONOGRAPHY [facility] Start: 02-10-2005 FECAL OCCULT BLOOD FECAL OCCULT BLOOD [facility] Start: 02-10-2005 Screening for malignant neoplasm of colon [facility] Start: 02-10-2005 SIGMOIDOSCOPY SIGMOIDOSCOPY [facility] Start: 2000 Mammography [facility] Start: 2000 Screening for malignant neoplasm of breast Mammogram Screening [facility] Start: 02-10-1990 HPV TESTING HPV TESTING [facility] Start: 02-10-1981 PAP TESTING PAP TESTING [facility] Start: 02-10-1981 Screening for malignant neoplasm of cervix Cervical Cancer Screening [facility] Start: 02-10-1979 Urine microalbumin profile [facility] Start: 02-10-1978 Anxiety Screening Anxiety Screening [facility] Start: 02-10-1978 HEPATITIS C SCREENING HEPATITIS C SCREENING [facility] Start: 02-10-1978 Hepatitis C screening Hepatitis C Screening [facility] Start: 02-10-1978 HIV SCREENING HIV SCREENING [facility] Start: 02-10-1978 HIV screening HIV Screening [facility] 25-hydroxyvitamin D3 [Mass/volume] in Serum or Plasma VITAMIN D 25 HYDROXY Lab Routine Vitamin D deficiency 11/12/2022 10:43 AM EDT [facility] Work Phone: CT Chest W contrast IV [facility] End: 06-08-2025 DBT Breast - bilateral screening LEI SCREENING W HARRY Radiology Routine Encounter for screening mammogram for breast cancer 1 Occurrences starting 05/09/2024 until 06/08/2025 [facility] Work Phone: Comment on above: 1 Occurrences starting 05/09/2024 until 06/08/2025 End: 07-20-2025 HEARING TEST/AUDIOGRAM HEARING TEST/AUDIOGRAM Audiology Routine Other specified hearing loss, unspecified ear 1 Occurrences starting 07/19/2024 until 07/20/2025 [facility] Work Phone: Comment on above: 1 Occurrences starting 07/19/2024 until 07/20/2025 End: 07-31-2023 LEI SCREENING LEI SCREENING Radiology Routine Encounter for screening mammogram for breast cancer 1 Occurrences starting 07/01/2022 until 07/31/2023 [facility] Work Phone: Comment on above: 1 Occurrences starting 07/01/2022 until 07/31/2023 End: 07-08-2024 MG Breast Screening LEI SCREENING Radiology Routine Encounter for screening mammogram for breast cancer 1 Occurrences starting 06/09/2023 until 07/08/2024 [facility] Work Phone: Comment on above: 1 Occurrences starting 06/09/2023 until 07/08/2024 Njx dx/ther sbst int rlmnr lmbr/sac w/img gdn LUMBAR EPIDURAL BLOCK W/INJECTION NON NEUROLYTIC W/IMAGE GUIDANCE Lumbar and sacral arthritis Lumbar radiculopathy [facility] Heart Views W str ess and W radionuclide IV [facility] Patient Education [facility] Work Phone: Patient referral [facility] Work Phone: Radiologic exam ches t 2 views XR CHEST 2V FRONTAL/LAT Radiology Routine Dyspnea on exertion Lightheaded 12/24/2022 1:41 PM EST [facility] Work Phone: End: 08-29-2022 Screening mammography bi 2-view breast inc cad LEI SCREENING Radiology Routine Encounter for screening mammogram for breast cancer 1 Occurrences starting 07/30/2021 until 08/29/2022 [facility] Work Phone: Comment on above: 1 Occurrences starting 07/30/2021 until 08/29/2022 End: 07-01-2024 XR Knee - right 4 Views XR KNEE GENERAL 4V AP BOTH/PA BOTH/LAT/MERC RIGHT Radiology Routine Acute pain of right knee 1 Occurrences starting 06/02/2023 until 07/01/2024 [facility] Work Phone: Comment on above: 1 Occurrences starting 06/02/2023 until 07/01/2024 XR Knee - right 4 Views XR KNEE GENERAL 4V AP BOTH/PA BOTH/LAT/MERC RIGHT Radiology Routine Acute pain of right knee 06/03/2023 1:[address] [facility] Immunizations Immunization Date Immunization Notes Care Provider Fa mary ann 02-03-2024 influenza, seasonal, injectable Angelika Older PRINT LINE INSPECTOR.FURNISHINGS CONSERVATOR Work Phone: [facility] 02-03-2024 influenza virus vaccine, unspecified formulation Angelika Older PRINT LINE INSPECTOR.FURNISHINGS CONSERVATOR Work Phone: [facility] 12-24-2022 influenza, injectabl e, quadrivalent, contains preservative Xr Mob Work Phone: [facility] 12-24-2022 influenza virus vaccine, unspecified formulation Angelika Wilson PRINT LINE INSPECTOR.FURNISHINGS CONSERVATOR Work Phone: [facility] 04-12-2021 influenza, injectabl e, quadrivalent, preservative free Dr. Nigel Carrillo Work Phone: [facility] 04-12-2021 influenza, seasonal, injectable [facility] Work Phone: 04-12-2021 influenza virus vaccine, unspecified formulation Angelika Wilson PRINT LINE INSPECTOR.FURNISHINGS CONSERVATOR Work Phone: [facility] 04-09-2020 Covid (Pfizer) [facility] 11-09-2016 Influenza virus vaccine [facility] Payers Date Payer Category Payer Self-pay [id number] 2024 Unknown [id number] 2020 Medicare [id number] 2020 Medicare [employer] MEDICARE [id number] 2020-Present [phone] [place] [address] Medicare [id number] 2020 Medicare (Managed Care) [facility] MEDICARE [id number] 2020 Unknown [id number] 2020 Medicaid MEDICAID [facility] MEDICAID [id number] 2020-[address] [place] [address] Medicaid [id number] 2020 Medicare MEDICARE MEDICAR E A AND B [id number] 2020-[address] [place] [address] Medicare [id number] 2019 Medicaid [id number] Medicare MEDICARE PART A B [id number] Unknown [id number] Social History Date Type Detail Facility Start: 06-06-2020 End: 12-21-2022 Tobacco smoking status NHIS Never smoked tobacco [facility] Start: 06-06-2020 End: 12-21-2022 Tobacco use and exposure Smokeless tobacco non-user [facility] Start: 05-07-2021 End: 09-13-2024 Alcohol intake Ex-drinker (finding) [facility] Start: 05-08-2020 End: 01-25-2022 History SDOH Alcohol Frequency 1 [facility] Start: 05-06-2020 History SDOH Alcohol Std Drinks 98 [facility] Start: 05-06-2020 End: 01-25-2022 History SDOH Social Connections Phone 5 [facility] Start: 05-06-2020 End: 01-25-2022 History SDOH Social Connections Membership 2 [facility] Start: 05-06-2020 End: 01-25-2022 History SDOH Social Connections Living 7 [facility] Start: 05-06-2020 End: 01-25-2022 History SDOH Physical Activity DPW 0 [facility] Start: 05-06-2020 End: 12-26-2021 History SDOH Stress 3 [facility] Start: 05-06-2020 Education 21 [facility] Start: 1960 Sex Assigned At Female [facility] Start: 02-13-2020 End: 09-08-2021 Exposure to SARS-CoV-2 (event) Not sure [facility] Start: 01-25-2022 History SDOH Financial 4 [facility] Start: 02-19-2022 End: 06-14-2023 Tobacco smoking status NHIS Unknown if ever smoked [facility] Start: 03-17-2017 Rare [facility] Start: 06-09-2020 Non-smoker [facility] Start: 01-25-2022 End: 12-21-2022 History of Social function [facility] Start: 01-25-2022 End: 12-21-2022 Social connection and isolation panel [facility] Do you belong to any clubs or organizations such as moravian groups, unions, fraternal or athletic groups, or school groups? No [facility] Are you now , , , , never or living with a partner? Never [facility] How often to you hav e a drink containing alcohol? Never [facility] Start: 01-10-2012 How many standard drinks containing alcohol do you have on a typical day? Patient does not drink [facility] How hard is it for y ou to pay for the very basics like food, housing, medical care, and heating Not very hard [facility] Do you feel stress - tense, restless, nervous, or anxious, or unable to sleep at night because your mind is troubled all the time - these days [OSQ] Only a little [facility] (I/We) worried wheth er (my/our) food would run out before (I/we) got money to buy more. Never true [facility] Start: 03-31-2020 Gender identity Identifies as female gender (finding) [facility] Start: 03-31-2020 Sexual orientation Heterosexual (finding) [facility] Do you feel stress - tense, restless, nervous, or anxious, or unable to sleep at night because your mind is troubled all the time - these days [OSQ] Rather much [facility] How hard is it for y ou to pay for the very basics like food, housing, medical care, and heating Somewhat hard [facility] Do you feel stress - tense, restless, nervous, or anxious, or unable to sleep at night because your mind is troubled all the time - these days [OSQ] Not at all [facility] (I/We) worried whegladis er (my/our) food would run out before (I/we) got money to buy more. Sometimes true [facility] Medical Equipment Procedure Code Equipment Code Equipment Origin al Text Equipment Identifier Dates Cystoscopy, with retrograde pyelogram and ureteral stent insertion STENT,URETERAL PIGTAIL [id number] FDA Start: 04-10-2021 Cystoscopy, with retrograde pyelogram and ureteral stent insertion STENT,URETERAL PIGTAIL [id number] FDA Start: 04-10-2021 Mental Status Date Assessment Result Facility 06-14-2023 Cognitive function Voice/Name [facility] Work Phone: Clinical Notes 03-14-2020 to 10-24-2024 Rupali Merritt AUD - 10/24/2024 1:30 PM EDTPatient InstructionsDoni Coronado PA-C - 10/24/2024 1:20 PM EDTTelephone Encounter - Melisa Reyes - 09/08/2024 12:02 PM EDTPatient Instructions Note Date & Type Note Facility 10-24-2024 History of Presen t illness Narrative [facility] [place] AUDIOLOGIC EVALUATION REPORT Name: Jillian Burrell CCF#: [id number] Date of Service: 10/24/2024 Date of : 1960 Age: [age] year old Referred by: Doni Coronado PA-C [id number] [facility] [address] Referred for: Evaluation of suspected change in hearing, tinnitus, or balance. Referral documented: In an order in [facility]. Patient's major complaints: Tinnitus in both ears, [...] evaluation of middle ear function. CPT code: 88865 RIGHT EAR: Normal ME function. LEFT EAR: Normal ME function. ACOUSTIC REFLEXES Description of procedure: This test is an objective measure of auditory and facial nerve pathways. CPT code: 10649, 33446 RIGHT EAR PROBE EAR: (ipsi right stimulus [...] conduction and speech recognition testing. CPT code: 47849 RIGHT EAR: Hearing Sensitivity: Normal hearing from 250-500 Hz sloping to a mild sensorineural hearing loss from 6301-0058 Hz with a moderate unspecified loss at [...] to a mild sensorineural hearing loss from 0470-4779 Hz with a moderate unspecified loss at [...] strategies to enhance communication ability. Juan Schultz, [facility] Abbrev- iation Definition Degree of hearing sensitivity dB range WNL within normal limits WNL 0 - 20 SNHL sensorineural hearing loss Mild 20-40 CHL conductive hearing loss Moderate 40-55 MHL mixed hearing loss Moderately-Severe 55-70 WRS word recognition score Severe 70-90 ME middle ear Profound 90 + TM tympanic membrane documented in this encounter [facility] 10-24-2024 Note HNO ID: [id number] Author: RUPALI MERRITT AUD Service: ? Author Type: Marketing Executive Type: Progress Notes Filed: 10/24/2024 13:58 Note Text: [facility] [place] AUDIOLOGIC EVALUATION REPORT Name: Jillian Burrell [facility]CF#: [id number] Date of Service: 10/24/2024 Date of : 1960 Age: [age] year old Referred by: Doni Coronado PA-C [id number] [facility] [address] Referred for: Evaluation of suspected change in hearing, tinnitus, or balance. Referral documented: In an order in [facility]. Patient's major complaints: Tinnitus in both ears, [...] evaluation of middle ear function. CPT code: 59956 RIGHT EAR: Normal ME function. LEFT EAR: Normal ME function. ACOUSTIC REFLEXES Description of procedure: This test is an objective measure of auditory and facial nerve pathways. CPT code: 40374, 22661 RIGHT EAR PROBE EAR: (ipsi right stimulus [...] conduction and speech recognition testing. CPT code: 55965 RIGHT EAR: Hearing Sensitivity: Normal hearing from 250-500 Hz sloping to a mild sensorineural hearing loss from 4473-6060 Hz with a moderate unspecified loss at [...] to a mild sensorineural hearing loss from 0583-0798 Hz with a moderate unspecified loss at [...] to enhance (more content not included)... [facility] 10-24-2024 Instructions Doni Coronado PA-C - 10/24/2024 [...] or she may refer you to an weblogic developer (an ear, nose, and throat doctor) or an personnel worker (hearing examiner). It is especially important to see an weblogic developer if you experience tinnitus in only one [...] - Environmental enrichment devices. A variety of [id number] devices can be used to increase the [...] wear earplugs to protect your hearing.) References [place] [employer] - Head [employer] Neck [employer]. Tinnitus Accessed 05/15/2013. [place] [employer]. Tinnitus Accessed 05/15/2013. [place] [employer]. Tinnitus: Ringing in Your Ears Accessed 05/15/2013. [employer] [place] on Deafness and Other Communication Disorders (NIDCD). Tinnitus Accessed 05/15/2013. Copyright 7387-0266 [facility]. All rights reserved documented in this encounter [facility] 10-24-2024 Note HNO ID: [id number] Author: DONI CORONADO PA-C Service: ? Author Type: Physician Director Sales Type: Progress Notes Filed: 10/24/2024 14:57 Note Text: [facility] [place] [facility] NOTE CC: Jillian Burrell is a [...] Tinnitus, bilateral. Patient reports longstanding tinnitus, bilateral, "for years." Patient describes tinnitus as like air blowing through my ears" "white noise," and occasional ringing. Patient denies pulsatile tinnitus. With regards to hearing, patient denies changes in hearing or concern for hearing loss. Patientdenies history of ear infections, PE tubes, previous ear surgeries. 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 Patient endorses family history of hearing loss, paternal grandmother and father. Patient also reports 10+ years of dizziness, vertigo. Patient initially assumed related to anxiety and depression, controlled with citalopram. Patient describes "bouts" of room-spinning vertigo, nausea typically without precipitating events and vary in frequency, duration, and intensity. Patient recalls worst episode while watching NASCAR on large TV and rocking on chair triggered severe vertigo, nausea, vomiting. Patient reports since February 2024, onset of lightheaded "float" sensation different than above symptoms. Patient denies [...] evaluation of middle ear function. CPT code: 93742 RIGHT EAR: Normal ME function. LEFT EAR: Normal ME function. ACOUSTIC REFLEXES Description of procedure: This test is an objective measure of auditory and facial nerve pathways. CPT code: 63768, 36062 RIGHT EAR PROBE EAR: (ipsi right stimulus [...] hearing sensitivity (more content not included)... [facility] 10-24-2024 History of Presen t illness Narrative Images from the original note were not included. [facility] [place] [facility] NOTE CC: Jillian Burrell is a [...] Tinnitus, bilateral. Patient reports longstanding tinnitus, bilateral, "for years." Patient describes tinnitus as "like air blowing through my ears" "white noise," and occasional ringing. Patient denies pulsatile tinnitus. With regards to hearing, patient denies changes in hearing or concern for hearing loss. Patient denies history of ear infections, PE tubes, previous ear surgeries. 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 Patient endorses family history of hearing loss, paternal grandmother and father. Patient also reports 10+ years of dizziness, vertigo. Patient initially assumed related to anxiety and depression, controlled with citalopram. Patient describes "bouts" of room-spinning vertigo, nausea typically without precipitating events and vary in frequency, duration, and intensity. Patient recalls worst episode while watching NASCAR on large TV and rocking on chair triggered severe vertigo, nausea, vomiting. Patient reports since February 2024, onset of lightheaded "float" sensation different than above symptoms. Patient denies [...] evaluation of middle ear function. CPT code: 92685 RIGHT EAR: Normal ME function. LEFT EAR: Normal ME function. ACOUSTIC REFLEXES Description of procedure: This test is an objective measure of auditory and facial nerve pathways. CPT code: 65962, 58563 RIGHT EAR PROBE EAR: (ipsi right stimulus [...] conduction and speech recognition testing. CPT code: 57084 RIGHT EAR: Hearing Sensitivity: Normal hearing from 250-500 Hz sloping to a mild sensorineural hearing loss from 1926-5455 Hz with a moderate unspecified loss at [...] to a mild sensorineural hearing loss from 3990-5131 Hz with a moderate unspecified loss at [...] three times a day as needed. Walker [facility] Standard Walker fluticasone (FLONASE) 50 mcg/actuation nasal [...] Drug use: Never documented in this encounter [facility] 09-13-2024 Note HNO ID: [id number] Author: ANGELIKA WILSON APRN.FURNISHINGS CONSERVATOR Service: ? Author Type: Nurse Practitioner Type: [...] Wheat requiring more updated visit. Recording using DAQRI software for draft documentation of the visit was discussed with the patient/authorized enrollment eligibility representative; all questions welcomed and answered. Patient/authorized enrollment eligibility representative agreed to proceed Hypothyroidism: - Taking levothyroxine 88 mcg daily. - Denies abnormal changes in weight or energy levels. Depression: - Well-controlled with citalopram 1 tablet daily. - Denies thoughts of self-harm or harm to others. -sleeping well and denies changes in appetite Chronic Vertigo: - Managed with meclizine. - Missed a recent ENT appointment for a "dizzy test," rescheduled for next week. Sleep Apnea: - [...] thigh, x2-3 weeks. - Described as a "hot poker" sensation lasting ~2 seconds. - Aggravated by [...] three times a day as needed. Walker [facility] Standard Walker fluticasone (FLONASE) 50 mcg/actuation nasal [...] done Colorectal Cancer Screening Never done [facility] Never done DTaP,Tdap,Td Vaccine(1 [...] depression ( (more content not included)... [facility] 09-08-2024 Telephone encounter Note Prescription Refill Information [...] Melisa Reyes September 08, 2024 12:03 PM [facility] 09-08-2024 Miscellaneous Notes Prescription Refill Information [...] 2024 12:03 PM documented in this encounter [facility] 08-17-2024 Note HNO ID: [id number] Author: ANGELIKA WILSON APRN.FURNISHINGS CONSERVATOR Service: ? Author Type: Nurse Practitioner Type: Progress Notes Filed: 08/17/2024 14:17 Note Text: This Team Access Model visit is a virtual encounter. It required patient-provider interaction for the medical decision making as documented below. Patient agrees to the visit: Yes Patient Location: [place] CC: Patient presents with: Medication Problem HPI [...] three times a day as needed. Walker [facility] Standard Walker fluticasone (FLONASE) 50 mcg/actuation nasal [...] - Instructed patient to contact office or [id number]-vr-[id number] after-hours promptly should condition worsen or any new symptoms appear. - [facility] and after hours crisis line 2. Dizziness - ICD9: 780.4, ICD10: R42 Resolved with discontinuation of medications. Prescription instructions reviewed with patient as applicable. Potenti (more content not included)... [facility] 08-17-2024 History of Presen t illness Narrative This Team Access Model visit is a virtual encounter. It required patient-provider interaction for the medical decision making as documented below. Patient agrees to the visit: Yes Patient Location: [place] CC: Patient presents with: Medication Problem HPI [...] three times a day as needed. Walker [facility] Standard Walker fluticasone (FLONASE) 50 mcg/actuation nasal [...] 2) due on 02/02/2025 Covid-19 Vaccine(4 - 2023- season) due on 02/02/2025 Pneumococcal Vaccine: 50+(1 [...] - Instructed patient to contact office or kvskw-is-daoj after-hours promptly should condition worsen or any new symptoms appear. - [facility] and after hours crisis line 2. [...] Angelika Wilson APRN.CNP documented in this encounter [facility] 08-17-2024 Telephone encounter Note Papers filled out and faxed end of june. appointment today to discuss further. Angelika Wilson APRN.CNP [facility] 08-17-2024 Miscellaneous Notes Papers filled out and faxed end of june. appointment today to discuss further. Angelika Wilson APRN.CNP Patient reports at her appt with [...] check on this. documented in this encounter [facility] 08-07-2024 Telephone encounter Note Patient reports at her appt with Angelika, on 06/28/24, Angelika said she would fax paperwork to [facility], so that patient could move there. nAgelika was also going to fax the ov notes and demographics. Do not see paperwork in scanned documents. Reports [facility] has not received the paperwork. Pt was hoping to move in by the end of September. Asking office to please send paperwork to [facility]. Pt will call back tomorrow to check on this. [facility] 07-18-2024 Telephone encounter Note The following approved medication requests have been transmitted electronically. Requested Prescriptions Signed Prescriptions Disp Refills gabapentin (NEURONTIN) 400 mg capsule 270 capsule 3 Sig: TAKE 1 CAPSULE THREE TIMES A DAY WITH MEALS (MAY MAKE DROWSY) Richelle Casillas MA [facility] 07-18-2024 Miscellaneous Notes The following approved [...] 2024 8:13 AM documented in this encounter [facility] 07-15-2024 Telephone encounter Note Prescription Refill [...] Irizarry LPN July 15, 2024 8:13 AM [facility] 07-14-2024 Note HNO ID: [id number] Author: ANGELIKA WILSON APRN.FURNISHINGS CONSERVATOR Service: ? Author Type: Nurse Practitioner Type: Progress Notes Filed: 07/14/2024 15:04 Note Text: CC: Patient presents with: Follow Up: Vertigo, ringing in ena ears HPI Jillian Burrell is a 64 year old female who presents today for ringing in her ears and dizziness. Recording using DAQRI software for draft documentation of the visit was discussed with the patient/authorized enrollment eligibility representative; all questions welcomed and answered. Patient/authorized enrollment eligibility representative agreed to proceed Tinnitus: - Bilateral tinnitus described as a constant ringing, similar to post-concert ear ringing. - Present for many years exact duration unknown. Ready to have this evaluated. "Floaty" Sensation: - Persistent "floaty" sensation since around New Year, progressively worsening. [...] History of vertigo, previously well-controlled. - Current "floaty" sensation differs from typical vertigo episodes, which [...] was found to be ready at [facility] but was not picked up. - denies [...] three times a day as needed. Walker [facility] Standard Walker fluticasone (FLONASE) 50 mcg/actuation nasal [...] maintenance revi (more content not included)... [facility] 07-14-2024 History of Presen t illness Narrative CC: Patient presents with: Follow Up: Vertigo, ringing in ena ears HPI Jillian Burrell is a 64 year old female who presents today for ringing in her ears and dizziness. Recording using DAQRI software for draft documentation of the visit was discussed with the patient/authorized enrollment eligibility representative; all questions welcomed and answered. Patient/authorized enrollment eligibility representative agreed to proceed Tinnitus: - Bilateral tinnitus described as a constant ringing, similar to post-concert ear ringing. - Present for many years exact duration unknown. Ready to have this evaluated. "Floaty" Sensation: - Persistent "floaty" sensation since around New Year, progressively worsening. [...] History of vertigo, previously well-controlled. - Current "floaty" sensation differs from typical vertigo episodes, which [...] citalopram was found to be ready at [employer] [facility] but was not picked up. - denies [...] three times a day as needed. Walker [facility] Standard Walker fluticasone (FLONASE) 50 mcg/actuation nasal [...] 2) due on 02/02/2025 Covid-19 Vaccine( - 2023- season) due on 02/02/2025 Pneumococcal Vaccine: 50+(1 of 1 - PCV) due on 02/02/2025 Annual PCP Team Chronic Disease Visit due on 07/14/2025 Diabetes Screening due on 06/29/2027 Lipid Screening due on 02/02/2029 Influenza Vaccine Completed DATA REVIEWED: Most recent labs Assessment/Plan 1. Dizziness (R42) - Experiencing a persistent "floaty" sensation since the New Year, worsening over time. Describes the sensation as internal movement rather than external. - No associated falls, vision changes, headaches, syncope, weakness, numbness, or confusion. - Examined for potential causes; no significant findings. - Advised to continue meclizine and consider using ejwf-wjv-zcsqban Dramamine, but not concurrently. - Will follow [...] Angelika Wilson APRN.CNP documented in this encounter [facility] 07-05-2024 Telephone encounter Note Patient notified, feeling better and will come in for repeat lab work. [facility] 07-05-2024 Miscellaneous Notes Patient notified, feeling [...] cam back up. Thank you Angelika Wilson APRN.FURNISHINGS CONSERVATOR documented in this encounter [facility] 07-05-2024 Telephone encounter Note ----- Message from Angelika Wilson APRN.FURNISHINGS CONSERVATOR sent at 07/05/2024 1:45 PM EDT ----- [...] cam back up. Thank you Angelika Wilson APRN.FURNISHINGS CONSERVATOR [facility] 06-28-2024 Note HNO ID: [id number] Author: PHUONG ESCOBEDO Tech Service: ? Author [...] PATIENT PRESENTS WITH AN IMPLANTABLE OR ATTACHED SNOWMAKER: No RADIOLOGY DEPARTMENT: General X-ray: Exam(s) Completed: Chest X-Ray PERIPHERAL IV DATA: Not applicable SIGNED BY: Jac Calvert June 28, 2024 12:25 PM [facility] 06-28-2024 Note HNO ID: [id number] Author: ANGELIKA WILSON APRN.FURNISHINGS CONSERVATOR Service: ? Author Type: Nurse Practitioner Type: Progress Notes Filed: 06/28/2024 12:24 Note Text: CC: Patient presents with: Forms: Forms to go into assisted living [facility] Jillian Burrell is a 64 year old female who presents today for wanting forms filled out to move into [facility] but is also ill. Recording using DAQRI software for draft documentation of the visit was discussed with the patient/authorized enrollment eligibility representative; all questions welcomed and answered. Patient/authorized enrollment eligibility representative agreed to proceed Cough: - Onset of symptoms approximately one week ago. - Symptoms include cough, fever, chills, sinus pressure, and fatigue. - Denies nausea, emesis, or diarrhea. - Initially suspected allergies or sinus infection. - Productive cough with yellow and brown sputum but now states cough Is dry, deep and she "feels it deep in her chest" - Denies increased dyspnea, chest pressure, or [...] times a day for 10 days. Walker [facility] Standard Walker fluticasone (FLONASE) 50 mcg/actuation nasal [...] No sup (more content not included)... [facility] 05-18-2024 Telephone encounter Note Faxed. [facility] 05-18-2024 Miscellaneous Notes Faxed. Printed for review. Nigel Daly MD Received a faxed request for a walker, from [facility] agency on aging and Disability. Patient would like standard walker Attn: Rohan Flaherty Rozina Adkins LPN May 18, 2024 11:54 AM documented in this encounter [facility] 05-18-2024 Telephone encounter Note Printed for review. Nigel Daly MD [facility] 05-18-2024 Telephone encounter Note Received a faxed request for a walker, from [facility] agency on aging and Disability. Patient would like standard walker Attn: Rohan Flaherty Rozina Adkins LPN May 18, 2024 11:54 AM [facility] 05-09-2024 Note Patient Outreach (IN TMWS) JILLIAN BURRELL ([id number]) 1960 F Date Time Provider Department 05/09/24 [...] for screening mammogram for breast cancer [Z12.31] Order(s):[facility] SCREENING [facility]ARRY [[id number]] Order #: [id number] FUTURE Prescriptions as of 06/09/2024 - [facility] Standard Walker - Cyanocobalamin 1,000 mcg TbER [...] depression [F41.9, F32.A] 02/03/2024 Encounter Status:Closed by [employer], [employer] on 06/09/24 [facility] 05-04-2024 Note HNO ID: [id number] Author: ANGELIKA WILSON APRN.FURNISHINGS CONSERVATOR Service: ? Author Type: Nurse Practitioner Type: Progress Notes Filed: 05/04/2024 10:22 Note Text: This Team Access Model visit is a virtual encounter. It required patient-provider interaction for the medical decision making as documented below. Patient agrees to the visit: Yes Patient Location: [place] CC: Patient presents with: Recheck HPI Jillian [...] time - Reviewed concept of neurochemical imbalance [facility] depression/anxiety, treatment options and benefits of counseling in combination with medication. Also reviewed benefits of sleep hygeine, diet and exercise - Instructed patient to contact office or mbgrv-mg-yjzq after-hours promptly should condition worsen or any new symptoms appear. - [facility] and after hours crisis line 2. Other fatigue - ICD9: 780.79, ICD10: R53.83 Improving but would even be more improved if the B12 deficiency was (more content not included)... [facility] 05-04-2024 History of Presen t illness Narrative This Team Access Model visit is a virtual encounter. It required patient-provider interaction for the medical decision making as documented below. Patient agrees to the visit: Yes Patient Location: [place] CC: Patient presents with: Recheck HPI Jillian [...] - Instructed patient to contact office or abxby-ql-xswx after-hours promptly should condition worsen or any new symptoms appear. - [facility] and after hours crisis line 2. [...] Angelika Wilson APRN.CNP documented in this encounter [facility] 03-08-2024 Telephone encounter Note Form completed and faxed 03/01. Will fax again. Have faxed multiple times as fax numbers provided rings busy. [facility] 03-08-2024 Miscellaneous Notes Form completed and faxed 03/01. Will fax again. Have faxed multiple times as fax numbers provided rings busy. Rigoberto calling again from [facility] [employer]. Following up in regards to form for Lift Chair for pt that was faxed on 02/17/2024. Rigoberto states last time they called on the , they were told that form was on provider's desk waiting to be signed. Asking for form to be faxed back as soon as possible to [phone]. Noted the other part of this encounter that pt was to repeat some labwork around 02/28/24. Pt has not been in and done that. It appears she has a lab appt set up for 03/14/24 and has follow up appt with Angelika on 05/04/24. Form received and placed on desk. Monicaah from [employer] calls and states that they re-sent form for Lift Chair on 02/17/2024. Rigoberto asking if form was received? Asking for form to be faxed back to [phone]. Mamta Spann RN Form placed on desk for review. Please get form and place on my desk. Thank you Angelika Wilson APRN.CNP Patient calls and states that she talked to [employer] about form that needed to be sent out for lift chair. Patient reports that she was told that provider needed to go to [employer] and fill out the paperwork from there. [...] she prefer? Thank you Angelika Wilson APRN.MYA documented in this encounter [facility] 03-08-2024 Telephone encounter Note Rigoberto calling again from [facility] [employer]. Following up in regards to form for Lift Chair for pt that was faxed on 02/17/2024. Rigoberto states last time they called on the , they were told that form was on provider's desk waiting to be signed. Asking for form to be faxed back as soon as possible to [phone]. Noted the other part of this encounter that pt was to repeat some labwork around 02/28/24. Pt has not been in and done that. It appears she has a lab appt set up for 03/14/24 and has follow up appt with Angelika on 05/04/24. [facility] 03-08-2024 Telephone encounter Note opened in error [facility] 03-08-2024 Miscellaneous Notes opened in error documented in this encounter [facility] 03-01-2024 Telephone encounter Note Medication is not covered due to patient can buy it OTC per medicaid/medicare [place] anything available OTC can be purchased by patient Zakia Lopez MA [facility] 03-01-2024 Miscellaneous Notes Medication is not covered due to patient can buy it OTC per medicaid/medicare [place] anything available OTC can be purchased by patient Zakia Lopez MA [employer] appeal dept phoned to let office know, [...] there PA dept and speak with a enrollment eligibility representative with case # [id number] to answer the questions in the questionnaire. [phone] Appeal completed and faxed for review. This [...] cancel PA and requested again. Jyothi with [employer] calls to request PA be resubmitted electronically. There system has been down and they are unable to send us any requests. Jyothi reports that they need peer reviewed medical documentation by two providers stating efficacy and safety. Without that documentation medication will not be covered. Case #[id number] . Lydia Castro RN [employer] PA requested. Forwarding to prior auth. Delmi Chamberlain MA Called and spoke with Akbar at [employer]. Akbar states that medication needs a prior authorization. Akbar states that once prior authorization is approved then medication can be resubmitted. Mamta Spann RN Please call [email or web address] [facility] and find out what the problem is. Thank you Angelika Wilson APRN.MYA Patient calls and states that [employer] has not sent her the vitamin B-12 prescription. Pharmacy is saying there is something wrong with the script. Patient asking if provider can take a look at what was sent. Please review and advise, Mamta Spann RN documented in this encounter [facility] 02-29-2024 Telephone encounter Note [employer] appeal dept phoned to let office know, [...] there PA dept and speak with a enrollment eligibility representative with case # [id number] to answer the questions in the questionnaire. [phone] [facility] 02-29-2024 Telephone encounter Note Appeal completed and faxed for review. [facility] 02-29-2024 Telephone encounter Note This was denied. [...] Part D. Therefore, your request is denied [facility] 02-28-2024 Telephone encounter Note Records were sent. Did cancel PA and requested again. [facility] 02-28-2024 Telephone encounter Note Jyothi with [employer] calls to request PA be resubmitted electronically. There system has been down and they are unable to send us any requests. Jyothi reports that they need peer reviewed medical documentation by two providers stating efficacy and safety. Without that documentation medication will not be covered. Case #[id number] . Lydia Castro RN [facility] 02-28-2024 Telephone encounter Note [employer] PA requested. [facility] 02-28-2024 Telephone encounter Note Forwarding to prior auth. Delmi Chamberlain MA [facility] 02-28-2024 Telephone encounter Note Called and spoke with Akbar at [employer]. Akbar states that medication needs a prior authorization. Akbar states that once prior authorization is approved then medication can be resubmitted. Mamta Spann RN [facility] 02-28-2024 Telephone encounter Note Please call [employer] [facility] and find out what the problem is. Thank you Angelika Wilson APRN.MYA [facility] 02-25-2024 Telephone encounter Note Patient calls and states that [employer] has not sent her the vitamin B-12 prescription. Pharmacy is saying there is something wrong with the script. Patient asking if provider can take a look at what was sent. Please review and advise, Mamta Spann RN [facility] 02-23-2024 Telephone encounter Note Form received and placed on desk. [facility] 02-21-2024 Telephone encounter Note Chipeiah from [employer] calls and states that they re-sent form for Lift Chair on 02/17/2024. Rigoberto asking if form was received? Asking for form to be faxed back to [phone]. Mamta Spann RN [facility] 02-14-2024 Telephone encounter Note Form placed on desk for review. [facility] 02-14-2024 Telephone encounter Note Please get form and place on my desk. Thank you Angelika Wilson APRN.CNP [facility] 02-14-2024 Telephone encounter Note Patient calls and states that she talked to [employer] about form that needed to be sent out for lift chair. Patient reports that she was told that provider needed to go to [employer] and fill out the paperwork from there. Patient notified of provider instruction regarding ibuprofen and increase of water intake and re check of labs. Patient voices understanding. Mamta Spann RN [facility] 02-14-2024 Telephone encounter Note She needs to get off the ibuprofen, increase water intake and recheck kidney function in 2 weeks. Thank you Angelika Wilson APRN.CNP [facility] 02-14-2024 Telephone encounter Note Patient has been taking ibuprofen for bad tooth for awhile patient states. Patient had tooth extracted on 02/09 so ibuprofen is almost completed. Patient requests daily B- 12 due to weather. Please send to [facility] 02-14-2024 Telephone encounter Note Kidney function is decreased. Is she taking any other anti-inflammatories outside of her meloxicam? Dehydration like decreasing fluid intake? Also vit b12 is low. She will need a supplement for this. It can be an every day pill or weekly injection. What would she prefer? Thank you Angelika Wilson APRN.FURNISHINGS CONSERVATOR [facility] 02-03-2024 Note HNO ID: [id number] Author: ANGELIKA WILSON APRN.MYA Service: ? Author [...] ?F) Resp 22 Ht 170.2 cm (5' 7") Wt (!) 139.3 kg (307 lb) SpO2 [...] DATA REVIEWE (more content not included)... [facility] 02-03-2024 History of Presen t illness Narrative [...] F) Resp 22 Ht 170.2 cm (5' 7") Wt (!) 139.3 kg (307 lb) SpO2 [...] 2) due on 02/02/2025 Covid-19 Vaccine(4 - 2023- season) due on 02/02/2025 Pneumococcal Vaccine: 50+(1 [...] - Instructed patient to contact office or [id number] after-hours promptly should condition worsen or any new symptoms appear. - Counseling Center [facility] and after hours crisis line 6. Hypothyroid [...] Angelika Wilson APRN.CNP documented in this encounter [facility] 12-30-2023 Telephone encounter Note Called and spoke to Claudia at [facility] [employer] [facility], will refax a new form to be filled out and updated. Patient needs office visit to be re evaluated and assessed. See phone encounter from 12/01/23 Previous form above [facility] desk for future appt. Called and left message for patient to schedule an appointment. Rozina Adkins LPN December 30, 2023 11:39 AM [facility] 12-30-2023 Miscellaneous Notes Called and spoke to Claudia at [employer], will refax a new form to be [...] any other seated device. Fax # is [phone] Phone # is [phone] Lydia Castro, FABIOLA Called [employer] and spoke to office staff, will refax request. Rozina Adkins LPN December 30, 2023 10:28 AM Buddy from [employer] calling asking if there has been a faxed received from them for pt? Asking for a return call. documented in this encounter [facility] 12-30-2023 Telephone encounter Note Buddy returns [...] any other seated device. Fax # is [phone] Phone # is [phone] Lydia Castro RN [facility] 12-30-2023 Telephone encounter Note Called [employer] and spoke to office staff, will refax request. Rozina Adkins LPN December 30, 2023 10:28 AM [facility] 12-27-2023 Telephone encounter Note Buddy from [employer] calling asking if there has been a faxed received from them for pt? Asking for a return call. [facility] 12-01-2023 Telephone encounter Note Patient calls back and notified of below. Patient voiced understanding. Patient scheduled to see Angelika tomorrow 12/02/2023. Mamta Spann RN [facility] 12-01-2023 Miscellaneous Notes Patient calls back and notified of below. Patient voiced understanding. Patient scheduled to see Angelika tomorrow 12/02/2023. Mamta Spann RN Yes, I received another order form for this from the supplier. I know nothing of insurance stance on this. If she needs it filled out again, she needs seen. Thank you Angelika Wilson APRN.CNP Pt called and is notified of providers [...] her insurance. She didn't know if Angelika Katie [employer] EQUIPMENT MECHANIC had received something recently about this. She said if she needs to she would come in and be seen, but last she knew we were fighting with her insurance. Please call and advise. Anita Kruger RN Received orders for lift chair. Patient needs recent appointment so this can be further discussed and ordered. Thank you Angelika Wilson APRN.CNP documented in this encounter [facility] 12-01-2023 Telephone encounter Note Yes, I received another order form for this from the supplier. I know nothing of insurance stance on this. If she needs it filled out again, she needs seen. Thank you Angelika Wilson APRN.CNP [facility] 12-01-2023 Telephone encounter Note Pt called [...] insurance. She didn't know if Angelika Wilson DAIRY EQUIPMENT MECHANIC had received something recently about this. She said if she needs to she would come in and be seen, but last she knew we were fighting with her insurance. Please call and advise. Anita Kruger, RN [facility] 12-01-2023 Telephone encounter Note Received orders for lift chair. Patient needs recent appointment so this can be further discussed and ordered. Thank you Angelika Wilson APRN.CNP [facility] 09-23-2023 Telephone encounter Note Agree with recommendations. Thank you Angelika Wilson APRN.CNP [facility] 09-23-2023 Miscellaneous Notes Agree with recommendations. Thank you Angelika Wilson APRN.FURNISHINGS CONSERVATOR Patient calling she thinks she has infected wisdom tooth and dentist will not give her rx since she has not been seen in some time. Advised would need to be seen in office. Patient said she will go to the [facility] for evaluation. documented in this encounter [facility] 09-23-2023 Telephone encounter Note Patient calling she thinks she has infected wisdom tooth and dentist will not give her rx since she has not been seen in some time. Advised would need to be seen in office. Patient said she will go to the [facility] for evaluation. [facility] 08-06-2023 Note HNO ID: [id number] Author: NBA CACERES MD Service: Pain Management Author Type: Physician Type: Operative Report Filed: 08/11/2023 12:20 Note Text: Procedure rescheduled. [facility] 08-06-2023 Note HNO ID: [id number] Author: NBA CACERES MD Service: Pain Management Author Type: Physician Type: H&P Filed: 08/11/2023 12:20 Note Text: Procedure rescheduled [facility] 07-06-2023 Telephone encounter Note Patient would like to reschedule procedure in [place] on August 10 Kishore Edith Thermodynamicist to Dr. Nba Caceres MD / Josefina Abraham CNP [facility] [place] [address] [place] [address] Phone. [phone] / Fax. [phone] [facility] 07-06-2023 Miscellaneous Notes Patient would like to reschedule procedure in [place] on August 10 Kishore Edith Allen to Dr. Nba Caceres MD / Josefina Abraham CNP [facility] [place] [address] [place] [address] Phone. [phone] / Fax. [phone] Unfortunately, we will need to reschedule. It [...] scheduled for the procedure on 07/09/2023 in [place] Kishore Victor Allen to Dr. Nba Caceres MD / Josefina Abraham CNP [facility] [place] [address] [place] [address] Phone. [phone] / Fax. [phone] documented in this encounter [facility] 07-06-2023 Telephone encounter Note Unfortunately, we will need to reschedule. It is not taking the antibiotic that is the issue, but rather why the antibiotic is being prescribed - a possible infection. Nba Caceres III, MD, PRASANNA [facility] Work Phone: 07-06-2023 Telephone encounter Note Patient called in stating she was put on an antibiotic (Penicillin) for a possible tooth infection per her dentist. Patient has not started the antibiotic yet and is wondering if she can have the injection then start on the antibiotic. Routed to Dr Caceres to advise. Patient is scheduled for the procedure on 07/09/2023 in [facility] Thermodynamicist to Dr. Nba Caceres MD / Josefina Abraham CNP [facility] [place] [address] [place] [address] Phone. [phone] / Fax. [phone] [facility] 07-02-2023 Note HNO ID: [id number] Author: NBA CACERES MD Service: Pain Management Author Type: Physician Type: Operative Report Filed: 07/08/2023 07:55 Note Text: Procedure cancelled [facility] 07-02-2023 Note HNO ID: [id number] Author: NBA CACERES MD Service: Pain Management Author Type: Physician Type: H&P Filed: 07/08/2023 07:55 Note Text: Procedure cancelled [facility] 06-29-2023 Telephone encounter Note Called and left a detailed voicemail notifying [facility] of providers message. Clinic phone number was left in case she had any questions. Anita Kruger RN [facility] 06-29-2023 Miscellaneous Notes Called and left a detailed voicemail notifying [facility] of providers message. Clinic phone number was left in case she had any questions. Anita Kruger RN Yes to taking both Yes to taking both Med and allergy list updated Brionna Bolivar APRN.FURNISHINGS CONSERVATOR [facility]mi with [facility] calls to verify pt's medications. 1) Pt [...] pt IS currently taking: Advil Flonase, prn [place] balm patches-prn leg and back pain. Please review and advise. Call [facility] with provider message concerning 1 & 2 and any other message pertaining to medications. Rosana Manley LPN documented in this encounter [facility] 06-29-2023 Telephone encounter Note Yes to taking both Yes to taking both Med and allergy list updated Brionna Bolivar APRN.CNP [facility] 06-29-2023 Telephone encounter Note Delmi with [facility] calls to verify pt's medications. 1) Pt [...] pt IS currently taking: Advil Flonase, prn [place] balm patches-prn leg and back pain. Please review and advise. Call [facility] with provider message concerning 1 & 2 and any other message pertaining to medications. Rosana Manley LPN [facility] 06-28-2023 Telephone encounter Note Noted, agree. [facility] 06-28-2023 Miscellaneous Notes Noted, agree. Tati PT calling from [facility] to report plan of care for patient and PT will visit patient 2 times a week for 4 weeks. PT will work with patient on strengthening, pain management, safety, and falls prevention. No call back needed unless provider has questions. Lydia Castro RN documented in this encounter [facility] 06-28-2023 Telephone encounter Note Tati PT calling from [facility] to report plan of care for patient and PT will visit patient 2 times a week for 4 weeks. PT will work with patient on strengthening, pain management, safety, and falls prevention. No call back needed unless provider has questions. Lydia Castro RN [facility] 06-23-2023 Telephone encounter Note Agree. [facility] 06-23-2023 Miscellaneous Notes Agree. Delmi with [facility] calling to state patient has requested her start of care for HH services to be tomorrow 06/24/23, and not today. No call back needed if provider is agreeable to this. Emily Javier RN documented in this encounter [facility] 06-23-2023 Telephone encounter Note Delmi with [facility] calling to state patient has requested her start of care for HH services to be tomorrow 06/24/23, and not today. No call back needed if provider is agreeable to this. Emily Javier RN [facility] 06-17-2023 Telephone encounter Note Kita with [facility] calls to request demographics and OV notes to go with referral received. Faxed to [phone] per request. Lydia Castro RN [facility] 06-17-2023 Miscellaneous Notes Kita with [facility] calls to request demographics and OV notes to go with referral received. Faxed to [phone] per request. Lydia Castro RN documented in this encounter [facility] 06-16-2023 Telephone encounter Note faxed as directed [facility] Work Phone: 06-16-2023 Miscellaneous Notes faxed as directed Please fax request for seat lift as filled out along with my note and recent pain mgmt note. Thank you Angelika Wilson APRN.FURNISHINGS CONSERVATOR Left detailed message on Shanon's VM stating she needs to call [facility] and ask them what DME they would like us to send script and let us know. Pt phoned in to request that letter regarding new lift chair be sent to [facility] instead. Maryan Quach June 02, 2023 7:48 PM documented in this encounter [facility] 06-16-2023 Telephone encounter Note Please fax request for seat lift as filled out along with my note and recent pain mgmt note. Thank you Angelika Wilson APRN.YMA [facility] 06-14-2023 Telephone encounter Note [employer] [employer] calling said they faxed form on 06/10/2023. Did not see that office received form. They are faxing form again right now to [phone]. [facility] 06-14-2023 Miscellaneous Notes [employer] calling said they faxed form on 06/10/2023. Did not see that office received form. They are faxing form again right now to [phone]. Patient calling to update provider's office that [facility] [employer] will be faxing over a form for Angelika Wilson CNP to sign and fax back, for further processing of lift chair request. Emily Javier RN documented in this encounter [facility] 06-14-2023 Telephone encounter Note Protocol recommends [...] in office showed has a heart attack. [facility] did EKG and told her she did not have PA- this was on 4 days ago. 8. [...] 11. : Post menopause. Protocols used: Chest [id number] [facility] 06-14-2023 Miscellaneous Notes Protocol recommends call [...] and told her she did not have PA- this was on 4 days ago. 8. [...] 11. : Post menopause. Protocols used: Chest Efgp-KFZVA-KZ documented in this encounter [facility] 06-04-2023 Telephone encounter Note Patient calling to update provider's office that [facility] will be faxing over a form for Angelika Wilson CNP to sign and fax back, for further processing of lift chair request. Emily Javier RN [facility] 06-03-2023 History of Presen t illness [...] PATIENT PRESENTS WITH AN IMPLANTABLE OR ATTACHED SNOWMAKER: No RADIOLOGY DEPARTMENT: General X-ray: Exam(s) Completed: Lower Extremity X-Ray(s): Knee, AP / Lat / Tunne / Merchant Right and Wt. Bearing PERIPHERAL IV DATA: Not applicable SIGNED BY: Rachele Kessler RT(R) June 03, 2023 1:54 PM documented in this encounter [facility] 06-03-2023 Telephone encounter Note Procedure(s) being [...] No 9. Does this procedure require a shuttle bus driver? Yes If yes, has patient been notified that a shuttle bus driver is needed and must be present at [...] dose of the COVID vaccine.) Kishore Victor [facility] 06-03-2023 Miscellaneous Notes Procedure(s) being scheduled:Epidural [...] No 9. Does this procedure require a shuttle bus driver? Yes If yes, has patient been notified that a shuttle bus driver is needed and must be present at [...] vaccine.) Kishore Victor documented in this encounter [facility] 06-03-2023 Note HNO ID: [id number] Author: TASHA DUKE MA Service: ? Author Type: Medical Records Coder Type: Progress Notes Filed: 06/03/2023 12:17 Note [...] for suicidal ideas. The patient is nervous/anxious. [facility] 06-03-2023 History of Presen t illness [...] not included. [facility] Today's Date: 06/03/2023 Name: Jillian Burrell : 1960 Purpose: New Patient Consultation Chief complaint: Low back pain Referring Clinician: Angelika Wilson APRN.FURNISHINGS CONSERVATOR Pertinent Past Medical History: FREEMAN, Hypothyroid, MDD, [...] Pain Medications: Tylenol (Acetaminophen) Opioids: Hydrocodone (eg [place]) Compliance: PDMP website checked and validated on [...] 0.96 mg/dL Final No results found for: "EGFR" No results found for: PCGLUCOSE Current Medications, [...] (ILESI) under fluoroscopic guidance MIDLINE at L4-5 Production Associate Needed: Epidural - YES Anticoagulant - Hold Needed: N/A (Not currently on Anticoagulants) Anticoagulant - Currently Taking: None Allergies (relevant): None Scheduling - Mobility (Can Patient independently transfer on/off an OR or Procedure table?): NO (Please do not schedule at [place] or [place]) Scheduling - Additional Info: None Studies: None Functional Evangelical: NONE - PT offered, declined Referrals: No [...] MD Pain Management [facility] documented in this encounter [facility] 06-03-2023 Telephone encounter Note Left detailed message on Shanon's VM stating she needs to call [facility] and ask them what DME they would like us to send script and let us know. [facility] 06-03-2023 Note HNO ID: [id number] Author: NBA CACERES MD Service: ? Author Type: Physician Type: Progress Notes Filed: 06/03/2023 12:17 Note Text: [facility] Today's Date: 06/03/2023 Name: Jillian Burrell : 1960 Purpose: New Patient Consultation Chief complaint: Low back pain Referring Clinician: Angelika Wilson APRN.FURNISHINGS CONSERVATOR Pertinent Past Medical History: FREEMAN, Hypothyroid, MDD, [...] Pain Medications: Tylenol (Acetaminophen) Opioids: Hydrocodone (eg [place]) Compliance: PDMP website checked and validated on [...] patent Hip joint (more content not included)... [facility] 06-02-2023 Telephone encounter Note Pt phoned in to request that letter regarding new lift chair be sent to [facility] instead. Maryan Quach June 02, 2023 7:48 PM [facility] 06-02-2023 History of Presen t illness [...] right knee pain for the past month. [place] balm patches help to relieve the pain [...] of 2) due on 12/22/2023 Covid-19 Vaccine( - season) due on 12/22/2023 Annual PCP Team [...] balance, and decrease risk of falls. - [facility] - CONSULT TO PAIN MGT - SEAT LIFT MECHANISM COMBL 2. Ambulatory dysfunction - ICD9: 719.7, ICD10: R26.2 As above - [facility] - CONSULT TO PAIN MGT - SEAT LIFT MECHANISM COMBL 3. Chronic bilateral low back pain with sciatica, sciatica laterality unspecified - ICD9: 724.2, 724.3, 338.29, ICD10: M54.40, G89.29 See #1 - [facility] - CONSULT TO PAIN MGT - SEAT LIFT MECHANISM COMBL 4. Acute pain of right knee - ICD9: 719.46, ICD10: M25.561 Assessment normal but with patients concern and already difficulty with ambulation will xray and get in with physical therapy - XR KNEE GENERAL 4V AP BOTH/PA BOTH/LAT/MERC RIGHT - [facility] Prescription instructions reviewed with patient as applicable. Potential red flag symptoms discussed with the patient. Reviewed appropriate action plan to take if red flag symptoms occur. Patient agreeable to treatment plan. Angelika Wilson APRN.CNP documented in this encounter [facility] 05-31-2023 Telephone encounter Note Patient has [...] Please advise. Thank you. Nancy Holcomb LPN. [facility] 05-31-2023 Miscellaneous Notes Patient has been [...] Patient aware RX will be sent to [facility]. No need to notify patient. Rachel Palomo documented in this encounter [facility] 05-31-2023 Telephone encounter Note Patient has been identified by name and date of : Yes Requested Prescriptions Pending Prescriptions Disp Refills ergocalciferol 50,000 unit capsule (VITAMIN D2, DRISDOL) 90 capsule 3 Sig: Take 1 capsule by mouth one time a week. RX INSTRUCTIONS: Patient aware RX will be sent to [facility]. No need to notify patient. Rachel Palomo [facility] 05-14-2023 Miscellaneous Notes TC to patient who verbalized understanding of below. No available appointment with provider today, offered Wednesday appointment but patient states she prefers to go to . [facility] She will need seen in the office for this or can go to [facility] ,Brionna Bolivar APRN.CNP Shanon is calling Brionna Bolivar APRN.CNP today to request a refill until June when she sees her dentist for toothache Patient is asking for antibiotic , amoxacillin to be sent to [facility] please. Please advise patient of any questions at home phone which has been verified Patient has been identified by name and birthdate. Duration of symptoms: days Person calling: self Call patient at: at home [phone] (home) Was an appointment scheduled: No Closing statement: Symptom Call: Thank you for calling [facility], your call is very important. A nurse will call in approximately 2-4 hours during business hours. If this is an emergency, please contact 911Augustina Tavares documented in this encounter [facility] 04-21-2023 Miscellaneous Notes Faxed. Form signed. Please fax as requested. Thank you Angelika Wilson APRN.FURNISHINGS CONSERVATOR [employer] [employer] is faxing an order for incontinent supplies, to Angelika today. Asking if Angelika can sign it and fax the signed order back to her today? . documented in this encounter [facility] 03-30-2023 History of Presen t illness [...] Patient agreeable to treatment plan. Brionna Bolivar APRN.FURNISHINGS CONSERVATOR documented in this encounter [facility] 03-29-2023 Miscellaneous Notes Spoke with pt [...] call and advise. documented in this encounter [facility] 01-28-2023 History of Presen t illness Narrative This Team Access Model visit is a virtual encounter. It required patient-provider interaction for the medical decision making as documented below. Patient agrees to the visit: Yes Patient Location: [place] CC: Patient presents with: Recheck HPI Jillian [...] scheduled to establish with Dr. Oliveira at [facility] in February. Is currently wearing [...] of 2) due on 12/22/2023 Covid-19 Vaccine( - season) due on 12/22/2023 Annual PCP Team [...] Angelika Wilson APRN.CNP documented in this encounter [facility] 12-24-2022 History of Presen t illness [...] 2022 1:42 PM documented in this encounter [facility] 11-11-2022 Miscellaneous Notes Spoke with pt and information listed below given. Pt verbalizes understanding. Pt reports she will get fasting blood work done. Coby Murray LPN Patient needing fasting blood work completed. Orders are placed. Thank you Angelika Wilson APRN.CNP Patient has been identified by name and date of : No Patient phones for refill(s): Requested Prescriptions Pending Prescriptions Disp Refills meclizine (ANTIVERT) 25 mg tab [Pharmacy Med Name: MECLIZINE TABS 25MG] 30 tablet 35 Sig: TAKE 1 TABLET THREE TIMES A DAY NEEDED FOR DIZZINESS nystatin (MYCOSTATIN) ointment [Pharmacy Med Name: NYSTATIN OINT [id number]] 30 g 23 Sig: APPLY TO THE [...] you. Lana Lopez documented in this encounter [facility] 11-09-2022 Miscellaneous Notes Patient has been [...] you. Lana Lopez documented in this encounter [facility] 06-03-2022 History of Presen t illness Narrative This Team Access Model visit is a virtual encounter. It required patient-provider interaction for the medical decision making as documented below. Patient agrees to the visit: Yes Patient Location: [place] CC: Patient presents with: Refill Request HPI Jillian Burrell is a 62 year old female who is contacted today for a virtual visit. This is an established patient of Dr. Nigel Carrilol MD. Insomnia: Resolved with trazadone. Did run [...] Angelika Wilson APRN.CNP documented in this encounter [facility] 04-21-2022 Miscellaneous Notes Pt called and [...] and call patient. documented in this encounter [facility] 04-09-2022 Miscellaneous Notes Karen with [employer] calling and states pt requesting incontinence supplies and lift chair. Karen is requesting recent OV notes for approval of orders. Contacted patient to verify this request and patient gives consent to fax recent OV notes as requested to [facility]. Faxed as requested to [phone]. Emily Javier RN documented in this encounter [facility] 04-06-2022 Miscellaneous Notes LOVELY: 01/26/2022 Last [...] Meme Nix Pss documented in this encounter [facility] 04-06-2022 Miscellaneous Notes Jillian Burrell is calling Nigel Carrillo MD today to request Orders for compression gloves due to arthritis in her hands. Please send to [facility] in [facility]. Please notify the patient once completed. Patient has been identified by name and birthdate. Duration of symptoms: N/A Person calling: self Call patient at: at home [phone] (home) [phone] (work) [phone] (cell) Was an appointment scheduled: No Closing statement: Results or non-symptom based questions: Thank you for calling [facility], your call will be returned within the next business day. Meme Nix Pss documented in this encounter [facility] 04-01-2022 Miscellaneous Notes Patient has been [...] to pharmacy. No need to notify patient. [employer] documented in this encounter [facility] 03-31-2022 Miscellaneous Notes Patient has been [...] Nancy Holcomb LPN documented in this encounter [facility] 02-03-2022 Miscellaneous Notes Patient has been [...] Lydia Castro RN documented in this encounter [facility] 01-26-2022 Instructions Angelika Wilson APRN.CNP - 01/26/2022 9:09 AM EST We are increasing your trazadone dose. You will need to getup in the morning and do some exercise then get dressed and ready for the day to start a new healthy daily routine. documented in this encounter [facility] 01-26-2022 History of Presen t illness Narrative This Team Access Model visit is a phone encounter. It required patient-provider interaction for the medical decision making as documented below. Patient agrees to the visit: Yes Patient Location: [place] CC: Patient presents with: insomnia HPI Jillian [...] Angelika Wilson APRN.CNP documented in this encounter [facility] 01-20-2022 Miscellaneous Notes Order has been faxed to number given. Lana Mcgregor LPN Please fax the designated place that patient requested. Regards, Nigel Carrillo MD Pt had OV on 09/08/21 for scooter. She thought [facility] had called us to tell us that they didn't sell scooters, but they hadn't. Pt is requesting that the Rx be sent to [facility] in [facility] at [phone] attn: Ceci. PH. [phone]. She needs an in office assessment for that. Regards, Nigel Carrillo MD Patient calling office to request DME prescription for scooter to be faxed to [facility] in [facility] at [phone] attn: Ceci. PH. [phone] documented in this encounter [facility] 01-16-2022 Miscellaneous Notes Patient has been [...] advise. Tati Stoner documented in this encounter [facility] 12-29-2021 History of Presen t illness Narrative This Team Access Model visit is a virtual encounter. It required patient-provider interaction for the medical decision making as documented below. Patient agrees to the visit: Yes Patient Location: [place] CC: Patient presents with: Insomnia HPI Jillian [...] Angelika Wilson APRN.CNP documented in this encounter [facility] 11-24-2021 Miscellaneous Notes Patient has been identified by name and date of : Yes Requested Prescriptions Pending Prescriptions Disp Refills meclizine (ANTIVERT) 25 mg tab Sig: Take 1 tablet by mouth three times daily as needed (dizziness). RX INSTRUCTIONS: Patient aware RX escripted to mail away pharmacy. No need to notify patient. Teri Shay Pss documented in this encounter [facility] 10-20-2021 Miscellaneous Notes Patient has been [...] Teri Shay Pss documented in this encounter [facility] 10-01-2021 Miscellaneous Notes Faxed to [place]. Patient calling back. [facility] is out of network as a DME. She is requesting order for scooter be faxed to [place]. #[phone]. . My Orozco RN documented in this encounter [facility] 09-10-2021 Miscellaneous Notes Faxed to [facility] Lana, I think we discussed this yesterday , please fax the order and notes as requested Pt called with [employer] . Please fax prescription for the scooter and chart notes. Coby Murray LPN documented in this encounter [facility] 09-08-2021 Miscellaneous Notes Noted patient was here for office visit. Lana Mcgregor LPN Patient is due for all annual labs so orders placed. If not fasting today can come back for fasting lab work. Thank you Angelika Wilson APRN.CNP Patient is here now wanting to have labs done for thyroid? please review. Lana Mcgregor LPN documented in this encounter [facility] 09-02-2021 Miscellaneous Notes Pt notified, parking [...] to be sent to her insurance company [employer]. Please advise and call patient. documented in this encounter [facility] 07-21-2021 Miscellaneous Notes Noted. Please let [...] she had any appointments tomorrow. Provider and [facility] did not have any earlier open appointments this week. Pt reports she was so scared from when she had sepsis, that she is going to go to the ER and come to her appointment on Wednesday. documented in this encounter [facility] 07-04-2021 Miscellaneous Notes Prescription sent. Thank you Angelika Wilson APRN.CNP Last appt with pcp [facility] [facility] was 05/07/21. Next appt is 07/25/21 Jillian Burrell is calling Nigel Carrillo MD today requesting a prescription of Loratadine is sent to mail order pharmacy [facility] Unable to locate script on in chart documented in this encounter [facility] 07-03-2021 Miscellaneous Notes Patient has been identified by name and date of : Yes Pending Prescriptions Disp Refills MELOXICAM 15 MG TABLET Sig: Take 1 tablet by mouth once daily. With food. VIANEY: No RX INSTRUCTIONS: Patient is asking this medication is sent to mail order pharmacy Patient aware RX escripted to mail away pharmacy. No need to notify patient. Loal Bowers documented in this encounter [facility] 06-10-2021 Miscellaneous Notes [facility] reports insurance will not cover meloxicam 7.5 mg twice daily, but will cover meloxicam 15 mg once daily. If provider wants to change Rx to 15 mg once daily, please send new Rx. If pcp wants to do PA, the phone # is [phone]. The invoice # [id number]. Reports it's the twice daily insurance will not cover. documented in this encounter [facility] 06-09-2021 Miscellaneous Notes 1. Pt called and states she wants medications listed below sent to [facility] for 90 days with refills. 2. Please [...] Coby Murray LPN documented in this encounter [facility] 06-06-2021 Miscellaneous Notes Returned call to patient. [facility] called stating patient was on back line and needed to speak with nursing regarding medication. Informed that [facility] does not have an extension to send patients to in [place] and that we are to send telephone encounters for clinical to call patients. Please call patient. documented in this encounter [facility] 06-02-2021 History of Presen t illness [...] 2021 3:09 PM documented in this encounter [facility] 05-08-2021 Miscellaneous Notes Discussed during appointment. Angelika Wilson APRN.MYA Betsy from [facility] calling patient had complained of right wrist, right hand pain to her elbow when she was at patient home this morning for her visit. Patient had IV in the right hand last week when she was in [facility]. Nurse also said patient plays all day on her phone or computer using the right hand. Patient has hospital follow up video visit scheduled with [facility] [facility] tomorrow. documented in this encounter [facility] 05-07-2021 History of Presen t illness Narrative This Team Access Model visit is a virtual encounter. It required patient-provider interaction for the medical decision making as documented below. Patient agrees to the visit: Yes Patient Location: [place] CC: Patient presents with: Hospital F/U [facility] Jillian Burrell is a 61 year old female who is contacted today for a virtual visit. This is an established patient of Dr. Nigel Carrillo MD. Jillian Burrell is a 61 year old female who presents today for hospital follow-up. Facility: [facility] Date of visit: 04/09/21-04/12/21 Had stone [...] hand is new. Pain feels like a "shock". Prior to hospitalization, she ordered a splint [...] without pain. DATA REVIEWED: Outside chart from [facility] reviewed. Will review health maintenance at [...] 285.9, ICD10: D64.9 - Anemic while at [facility], will recheck - CBC + DIFF [...] Angelika Wilson APRN.CNP documented in this encounter [facility] 09-06-2020 Miscellaneous Notes Patient used to see Dr Villaseñor and would like to see Zheng and stay at [facility]. Please call her at [phone] (home) to schedule. Thank you Lidya Hernandez Pss documented in this encounter [facility] 03-14-2020 History of Presen t illness [...] 2020 11:19 AM documented in this encounter [facility] Evaluation note Diagnosis History of recent hospitalization- Primary Personal history of unspecified disease Kidney stones Calculus of kidney Pyelonephritis Pyelonephritis, unspecified Anemia, unspecified type Hypothyroidism, unspecified type Mixed hyperlipidemia Vitamin D deficiency Unspecified vitamin D deficiency [facility] [place] [facility]* Diagnosis Combined forms of age-related cataract of both eyes- Primary Other and combined forms of senile cataract Dry eye syndrome of bilateral lacrimal glands Tear film insufficiency, unspecified Hypermetropia, bilateral Regular astigmatism of both eyes Regular astigmatism Presbyopia Vitreous floaters of both eyes [facility] Diagnosis Hypothyroidism, unspecified type Medication management Encounter for long-term (current) use of other medications [facility] [place] [facility] Diagnosis Encounter for screening mammogram for breast cancer [facility] [place] [facility] Diagnosis Hypothyroid- Primary Thyrotoxicosis without mention of goiter or other cause, without mention of thyrotoxic crisis or storm Mixed hyperlipidemia Essential hypertension Unspecified essential hypertension Encounter for screening for diabetes mellitus Screening for diabetes mellitus Vitamin D deficiency Unspecified vitamin D deficiency [facility] Diagnosis Insomnia, unspecified type- Primary Reactive depression Dysthymic disorder Obstructive sleep apnea syndrome Obstructive sleep apnea (adult) (pediatric) [facility] Diagnosis Ambulatory dysfunction- Primary Difficulty in walking Lumbar and sacral arthritis Lumbosacral spondylosis without myelopathy Morbidly obese (HCC) Morbid obesity Chronic low back pain, unspecified back pain laterality, unspecified whether sciatica present documented [facility] this encounter [facility] [place] [facility]* Diagnosis Insomnia, unspecified type- Primary documented in this encounter [facility] noteNo assessment information availableWC[facility] Work Phone: Evaluation note* Diagnosis Hand arthritis- Primary Unspecified arthropathy, hand Hand edema Edema documented in this encounter [facility] note* Diagnosis Insomnia, unspecified type- Primary Obstructive sleep apnea syndrome Obstructive sleep apnea (adult) (pediatric) Ambulatory dysfunction Difficulty in walking Lumbar and sacral arthritis Lumbosacral spondylosis without myelopathy documented in this encounter [facility] note* Diagnosis Encounter for screening mammogram for breast cancer documented in this encounter [facility] note* Diagnosis Hypothyroid- Primary Thyrotoxicosis without mention of goiter or other cause, without mention of thyrotoxic crisis or storm Medication management Encounter for long-term (current) use of other medications Mixed hyperlipidemia Essential hypertension Unspecified essential hypertension Vitamin D deficiency Unspecified vitamin D deficiency documented in this encounter [facility] note* Diagnosis Medication management Encounter for long-term (current) use of other medications Hyperthyroidism Thyrotoxicosis without mention of goiter or other cause, without mention of thyrotoxic crisis or storm documented in this encounter [facility] [place] [facility]* Diagnosis Dyspnea on exertion Other dyspnea and respiratory abnormality Lightheaded Dizziness and giddiness documented in this encounter [facility] note* Diagnosis Dyspnea on exertion- Primary Other dyspnea and respiratory abnormality Palpitations Lumbar and sacral arthritis Lumbosacral spondylosis without myelopathy Function kidney decreased Unspecified disorder of kidney and ureter Hypothyroid Thyrotoxicosis without mention of goiter or other cause, without mention of thyrotoxic crisis or storm Elevated glucose Other abnormal glucose documented in this encounter [facility] note* Diagnosis Pain, dental- Primary Unspecified disorder of the teeth and supporting structures documented in this encounter [facility] note* Diagnosis Lumbar and sacral arthritis- Primary Lumbosacral spondylosis without myelopathy Ambulatory dysfunction Difficulty in walking Chronic bilateral low back pain with sciatica, sciatica laterality unspecified Acute pain of right knee documented in this encounter [facility] note* Diagnosis Lumbar radiculopathy- Primary Thoracic or lumbosacral neuritis or radiculitis, unspecified Lumbar and sacral arthritis Lumbosacral spondylosis without myelopathy Ambulatory dysfunction Difficulty in walking Chronic bilateral low back pain with sciatica, sciatica laterality unspecified [facility] [place] Diagnosis Lumbar and sacral arthritis- Primary Lumbosacral spondylosis without myelopathy Lumbar radiculopathy Thoracic or lumbosacral neuritis or radiculitis, unspecified documented in this encounter [facility] [place] [facility]* Diagnosis Acute pain of right knee documented in this [facility] [place] [facility]* Diagnosis Encounter for screening mammogram for breast cancer Lumbar and sacral arthritis Lumbosacral spondylosis without myelopathy Lumbar radiculopathy Thoracic or lumbosacral neuritis or radiculitis, unspecified documented in this encounter [facility] [place] [facility]* Diagnosis Onset Date Resolution Status Abnormal EKG chronic Ascending aorta dilatation c hronic Chest pain chronic Dyspnea on exertion chronic Morbid obesity chronic Palpitations chronic [facility] Work Phone: Evaluation note* Diagnosis Lumbar and sacral arthritis Lumbosacral spondylosis without myelopathy Hip arthritis Unspecified arthropathy, pelvic region and thigh [facility] [place] [facility]* Diagnosis Ambulatory dysfunction- Primary Difficulty in [...] Insomnia, unspecified type [facility] [place] [facility]* Diagnosis Function kidney decreased- Primary Unspecified disorder of kidney and ureter [facility] [place] [facility]* Diagnosis Anxiety and depression- Primary Dysthymic disorder Other fatigue Vitamin B12 deficiency Other B-complex deficiencies Function kidney decreased Unspecified disorder of kidney and ureter Ambulatory dysfunction Difficulty in walking [facility] [place] [facility]* Diagnosis Ambulatory dysfunction- Primary Difficulty in walking Lumbar and sacral arthritis Lumbosacral spondylosis without myelopathy Weakness of both lower extremities [facility] [place] [facility]* Diagnosis Encounter for screening mammogram for breast cancer [facility] [place] [facility]* Diagnosis Hyponatremia- Primary Hyposmolality and/or hyponatremia [facility] [place] [facility]* Diagnosis Dizziness- Primary Dizziness and giddiness Anxiety and depression Dysthymic disorder Tinnitus, bilateral Unspecified tinnitus [facility] Diagnosis Other specified hearing loss, unspecified ear- Primary documented in this encounter [facility] note* Diagnosis Anxiety and depression- Primary Dysthymic disorder Dizziness Dizziness and giddiness documented in this encounter [facility] note* Diagnosis Sensorineural hearing loss, bilateral- Primary Other specified hearing loss, unspecified ear Tinnitus, bilateral Unspecified tinnitus Vertigo Dizziness and giddiness documented in this encounter [facility] note* Diagnosis Dizziness Dizziness and giddiness Tinnitus, bilateral Unspecified tinnitus Sensorineural hearing loss, bilateral Vertigo Dizziness and giddiness [facility] Additional Instructions Please follow-up with your cupola patcher. Return for any worsening chest pain or shortness of breathWCherrington [facility] Work Phone: Reason for referral (narrative)* Diagnostic Procedure Only (Routine) - Pending Review Specialty Diagnoses / Procedures Referred By Nenita wong Referred To Contact [facility] Diagnoses Encounter for screening mammogram for breast cancer Procedures LEI SCREENING SCREENING MAMMOGRAPHY BI 2-VIEW BREAST INC Nigel Dao MD [address] [place] [address] [facility] [address] [place] [address] Referral ID Status Reason Start Date Expiration Date Visits Requested Visits Authorized [id number] Pending Review Auto-Generat ed Referral 07/30/2021 08/29/2022 1 1 [facility] for referral (narrative)* Diagnostic Procedure Only (Routine) - Pending Review Specialty Diagnoses / Procedures Referred By Contdeb wong Referred To Contact [facility] Diagnoses Encounter for screening mammogram for breast cancer Procedures LEI SCREENING SCREENING MAMMOGRAPHY BI 2-VIEW BREAST INC Nigel Dao MD [address] [place] [address] [facility] [address] [place] [address] Referral ID Status Reason Start Date Expiration Date Visits Requested Visits Authorized [id number] Pending Review Auto-Generat ed Referral 07/01/2022 07/31/2023 1 1 [facility] for referral (narrative)* Diagnostic Procedure Only (Routine) - Pending Review Specialty Diagnoses / Procedures Referred By Nenita wong Referred To Contact [facility] Diagnoses Encounter for screening mammogram for breast cancer Procedures LEI SCREENING SCREENING MAMMOGRAPHY BI 2-VIEW BREAST INC Nigel Dao MD [address] [place] [address] [facility] [address] [place] [address] Referral ID Status Reason Start Date Expiration Date Visits Requested Visits Authorized [id number] Pending Review Auto-Generat ed Referral 06/09/2023 07/08/2024 1 1 [facility] for visit Narrative* Diagnostic Procedure Only (Routine) - Closed Specialty Diagnoses / Procedures Referred By Nenita wong Referred To Contact [facility] IMAGING Diagnoses Acute pain of right knee Procedures XR KNEE GENERAL 4V AP BOTH/PA BOTH/LAT/MERC RIGHT RADIOLOGIC EXAM KNEE COMPLETE 4/MORE VIEWS Angelika Wilson APRN.MYA [address] [place] [address] [place] [address] Referral ID Status Reason Start Date Expiration Date V isits Requested Visits Authorized [id number] Closed Auto-Generate d Referral 06/02/2023 07/01/2024 1 1 [facility] Summary Purpose Family History No Family [...] Will Yes February 19 6:13pm Power of Booking Police Officer Yes February 19, 2022 6:13pm Name of Medical Power of Booking Police Officer brinda jaime-sister February 19, 2022 6:13pm Advance Directive Response Recorded Date/ Time Living Will No June 14, 2023 5: 30pm Power of Booking Police Officer No June 14, 2023 5:30pm Medications Administered Section Active Administered Medications - up to 3 most recent administrations Medication Order MAR Action Action Date Dose Rate Site fluorescein-benoxinate 0.25-0.4 % 1 Drop (FLURESS) 1 Drop, BOTH EYES, DIRECTED, Starting on Wed06/02/21 at 1430, Until Wed06/03/21 at 0229, Administer for applanation tonometry. In the event of a Fluress shortage, administer [place]-Fluor 1 drop into both eyes as directed [...] on Wed06/02/21 at 1430, Until Wed06/03/21 at 022, Administer for dilation Given 06/02/2021 2:30 PM [...] MGT OFFICE/OUTPATIENT NEW HIGH MDM 60 MINUTES Angelika Wilson APRN.FURNISHINGS CONSERVATOR [address] [place] [address] Referral ID Status Reason Start Date Expiration Date V isits Requested Visits Authorized [id number] Closed PCP Requested Referral 06/02/2023 06/01/2024 1 1 Specialty Diagnoses / Procedures Referred By Nenita wong Referred To Contact XR IMAGING Diagnoses Acute pain of right knee Procedures XR KNEE GENERAL 4V AP BOTH/PA BOTH/LAT/MERC RIGHT RADIOLOGIC EXAM KNEE COMPLETE 4/MORE VIEWS Angelika Wilson APRN.FURNISHINGS CONSERVATOR [address] [place] [address] [place] [address] Referral ID Status Reason Start Date Expiration Date V isits Requested Visits Authorized [id number] Closed Auto-Generate d Referral 06/02/2023 07/01/2024 1 1 Specialty Diagnoses / Procedures Referred By Nenita wong Referred To Contact Angelika Wilson APRN.FURNISHINGS CONSERVATOR [address] [place] [address] Referral ID Status Reason Start Date Expiration Date Visits Re quested Visits Authorized [id number] Closed 1 1 Additional Source Comments INFORMATION SOURCE (unrecogn ized section and content) DATE CREATED AUTHOR 11/08/2019 [facility] DATE CREATED AUTHOR AUTHOR'S ORGANIZ ATION 08/12/2023 [facility] DATE CREATED AUTHOR AUTHOR'S ORGANIZ ATION 10/24/2024 [facility] DATE CREATED AUTHOR AUTHOR'S ORGANIZ ATION 10/25/2024 [facility] Source Comments (unrecognize d section and content) In the event this informatio n is protected by the Federal Confidentiality of Alcohol and Drug Abuse Patient Records regulations: The Federal rules restrict any use of the information to criminally investigate or prosecute any alcohol or drug abuse patient.[facility] the event this information is protected by the Federal Confidentiality of Alcohol and Drug Abuse Patient Records regulations: The Federal rules restrict any use of the information to criminally investigate or prosecute any alcohol or drug abuse patient.[facility] Hospital[facility] the event this information is protected by the Federal Confidentiality of Alcohol and Drug Abuse Patient Records regulations: The Federal rules restrict any use of the information to criminally investigate or prosecute any alcohol or drug abuse patient.[facility] the event this information is protected by the Federal Confidentiality of Alcohol and Drug Abuse Patient Records regulations: The Federal rules restrict any use of the information to criminally investigate or prosecute any alcohol or drug abuse patient.[facility] the event this information is protected by the Federal Confidentiality of Alcohol and Drug Abuse Patient Records regulations: The Federal rules restrict any use of the information to criminally investigate or prosecute any alcohol or drug abuse patient.[facility] HospitalIn the event this information is protected by the Federal Confidentiality of Alcohol and Drug Abuse Patient Records regulations: The Federal rules restrict any use of the information to criminally investigate or prosecute any alcohol or drug abuse patient.[facility] the event this information is protected by the Federal Confidentiality of Alcohol and Drug Abuse Patient Records regulations: The Federal rules restrict any use of the information to criminally investigate or prosecute any alcohol or drug abuse patient.[facility] HospitalIn the event this information is protected by the Federal Confidentiality of Alcohol and Drug Abuse Patient Records regulations: The Federal rules restrict any use of the information to criminally investigate or prosecute any alcohol or drug abuse patient.[facility] HospitalIn the event this information is protected by the Federal Confidentiality of Alcohol and Drug Abuse Patient Records regulations: The Federal rules restrict any use of the information to criminally investigate or prosecute any alcohol or drug abuse patient.[facility] HospitalIn the event this information is protected by the Federal Confidentiality of Alcohol and Drug Abuse Patient Records regulations: The Federal rules restrict any use of the information to criminally investigate or prosecute any alcohol or drug abuse patient.[facility] HospitalIn the event this information is protected by the Federal Confidentiality of Alcohol and Drug Abuse Patient Records regulations: The Federal rules restrict any use of the information to criminally investigate or prosecute any alcohol or drug abuse patient.[facility] HospitalIn the event this information is protected by the Federal Confidentiality of Alcohol and Drug Abuse Patient Records regulations: The Federal rules restrict any use of the information to criminally investigate or prosecute any alcohol or drug abuse patient.[facility] HospitalIn the event this information is protected by the Federal Confidentiality of Alcohol and Drug Abuse Patient Records regulations: The Federal rules restrict any use of the information to criminally investigate or prosecute any alcohol or drug abuse patient.[facility] HospitalIn the event this information is protected by the Federal Confidentiality of Alcohol and Drug Abuse Patient Records regulations: The Federal rules restrict any use of the information to criminally investigate or prosecute any alcohol or drug abuse patient.[facility] HospitalIn the event this information is protected by the Federal Confidentiality of Alcohol and Drug Abuse Patient Records regulations: The Federal rules restrict any use of the information to criminally investigate or prosecute any alcohol or drug abuse patient.[facility] HospitalIn the event this information is protected by the Federal Confidentiality of Alcohol and Drug Abuse Patient Records regulations: The Federal rules restrict any use of the information to criminally investigate or prosecute any alcohol or drug abuse patient.[facility] HospitalIn the event this information is protected by the Federal Confidentiality of Alcohol and Drug Abuse Patient Records regulations: The Federal rules restrict any use of the information to criminally investigate or prosecute any alcohol or drug abuse patient.[facility] HospitalIn the event this information is protected by the Federal Confidentiality of Alcohol and Drug Abuse Patient Records regulations: The Federal rules restrict any use of the information to criminally investigate or prosecute any alcohol or drug abuse patient.[facility] HospitalIn the event this information is protected by the Federal Confidentiality of Alcohol and Drug Abuse Patient Records regulations: The Federal rules restrict any use of the information to criminally investigate or prosecute any alcohol or drug abuse patient.[facility] HospitalIn the event this information is protected by the Federal Confidentiality of Alcohol and Drug Abuse Patient Records regulations: The Federal rules restrict any use of the information to criminally investigate or prosecute any alcohol or drug abuse patient.[facility] HospitalIn the event this information is protected by the Federal Confidentiality of Alcohol and Drug Abuse Patient Records regulations: The Federal rules restrict any use of the information to criminally investigate or prosecute any alcohol or drug abuse patient.[facility] HospitalIn the event this information is protected by the Federal Confidentiality of Alcohol and Drug Abuse Patient Records regulations: The Federal rules restrict any use of the information to criminally investigate or prosecute any alcohol or drug abuse patient.[facility] HospitalIn the event this information is protected by the Federal Confidentiality of Alcohol and Drug Abuse Patient Records regulations: The Federal rules restrict any use of the information to criminally investigate or prosecute any alcohol or drug abuse patient.[facility] HospitalIn the event this information is protected by the Federal Confidentiality of Alcohol and Drug Abuse Patient Records regulations: The Federal rules restrict any use of the information to criminally investigate or prosecute any alcohol or drug abuse patient.[facility] HospitalIn the event this information is protected by the Federal Confidentiality of Alcohol and Drug Abuse Patient Records regulations: The Federal rules restrict any use of the information to criminally investigate or prosecute any alcohol or drug abuse patient.[facility] HospitalIn the event this information is protected by the Federal Confidentiality of Alcohol and Drug Abuse Patient Records regulations: The Federal rules restrict any use of the information to criminally investigate or prosecute any alcohol or drug abuse patient.[facility] HospitalIn the event this information is protected by the Federal Confidentiality of Alcohol and Drug Abuse Patient Records regulations: The Federal rules restrict any use of the information to criminally investigate or prosecute any alcohol or drug abuse patient.[facility] HospitalIn the event this information is protected by the Federal Confidentiality of Alcohol and Drug Abuse Patient Records regulations: The Federal rules restrict any use of the information to criminally investigate or prosecute any alcohol or drug abuse patient.[facility] HospitalIn the event this information is protected by the Federal Confidentiality of Alcohol and Drug Abuse Patient Records regulations: The Federal rules restrict any use of the information to criminally investigate or prosecute any alcohol or drug abuse patient.[facility] HospitalIn the event this information is protected by the Federal Confidentiality of Alcohol and Drug Abuse Patient Records regulations: The Federal rules restrict any use of the information to criminally investigate or prosecute any alcohol or drug abuse patient.[facility] HospitalIn the event this information is protected by the Federal Confidentiality of Alcohol and Drug Abuse Patient Records regulations: The Federal rules restrict any use of the information to criminally investigate or prosecute any alcohol or drug abuse patient.[facility] HospitalIn the event this information is protected by the Federal Confidentiality of Alcohol and Drug Abuse Patient Records regulations: The Federal rules restrict any use of the information to criminally investigate or prosecute any alcohol or drug abuse patient.[facility] HospitalIn the event this information is protected by the Federal Confidentiality of Alcohol and Drug Abuse Patient Records regulations: The Federal rules restrict any use of the information to criminally investigate or prosecute any alcohol or drug abuse patient.[facility] HospitalIn the event this information is protected by the Federal Confidentiality of Alcohol and Drug Abuse Patient Records regulations: The Federal rules restrict any use of the information to criminally investigate or prosecute any alcohol or drug abuse patient.[facility] HospitalIn the event this information is protected by the Federal Confidentiality of Alcohol and Drug Abuse Patient Records regulations: The Federal rules restrict any use of the information to criminally investigate or prosecute any alcohol or drug abuse patient.[facility] HospitalIn the event this information is protected by the Federal Confidentiality of Alcohol and Drug Abuse Patient Records regulations: The Federal rules restrict any use of the information to criminally investigate or prosecute any alcohol or drug abuse patient.[facility] HospitalIn the event this information is protected by the Federal Confidentiality of Alcohol and Drug Abuse Patient Records regulations: The Federal rules restrict any use of the information to criminally investigate or prosecute any alcohol or drug abuse patient.[facility] HospitalIn the event this information is protected by the Federal Confidentiality of Alcohol and Drug Abuse Patient Records regulations: The Federal rules restrict any use of the information to criminally investigate or prosecute any alcohol or drug abuse patient.[facility] HospitalIn the event this information is protected by the Federal Confidentiality of Alcohol and Drug Abuse Patient Records regulations: The Federal rules restrict any use of the information to criminally investigate or prosecute any alcohol or drug abuse patient.[facility] HospitalIn the event this information is protected by the Federal Confidentiality of Alcohol and Drug Abuse Patient Records regulations: The Federal rules restrict any use of the information to criminally investigate or prosecute any alcohol or drug abuse patient.[facility] HospitalIn the event this information is protected by the Federal Confidentiality of Alcohol and Drug Abuse Patient Records regulations: The Federal rules restrict any use of the information to criminally investigate or prosecute any alcohol or drug abuse patient.[facility] HospitalIn the event this information is protected by the Federal Confidentiality of Alcohol and Drug Abuse Patient Records regulations: The Federal rules restrict any use of the information to criminally investigate or prosecute any alcohol or drug abuse patient.[facility] HospitalIn the event this information is protected by the Federal Confidentiality of Alcohol and Drug Abuse Patient Records regulations: The Federal rules restrict any use of the information to criminally investigate or prosecute any alcohol or drug abuse patient.[facility] HospitalIn the event this information is protected by the Federal Confidentiality of Alcohol and Drug Abuse Patient Records regulations: The Federal rules restrict any use of the information to criminally investigate or prosecute any alcohol or drug abuse patient.[facility] HospitalIn the event this information is protected by the Federal Confidentiality of Alcohol and Drug Abuse Patient Records regulations: The Federal rules restrict any use of the information to criminally investigate or prosecute any alcohol or drug abuse patient.[facility] HospitalIn the event this information is protected by the Federal Confidentiality of Alcohol and Drug Abuse Patient Records regulations: The Federal rules restrict any use of the information to criminally investigate or prosecute any alcohol or drug abuse patient.[facility] HospitalIn the event this information is protected by the Federal Confidentiality of Alcohol and Drug Abuse Patient Records regulations: The Federal rules restrict any use of the information to criminally investigate or prosecute any alcohol or drug abuse patient.[facility] HospitalIn the event this information is protected by the Federal Confidentiality of Alcohol and Drug Abuse Patient Records regulations: The Federal rules restrict any use of the information to criminally investigate or prosecute any alcohol or drug abuse patient.[facility] HospitalIn the event this information is protected by the Federal Confidentiality of Alcohol and Drug Abuse Patient Records regulations: The Federal rules restrict any use of the information to criminally investigate or prosecute any alcohol or drug abuse patient.[facility] HospitalIn the event this information is protected by the Federal Confidentiality of Alcohol and Drug Abuse Patient Records regulations: The Federal rules restrict any use of the information to criminally investigate or prosecute any alcohol or drug abuse patient.[facility] HospitalIn the event this information is protected by the Federal Confidentiality of Alcohol and Drug Abuse Patient Records regulations: The Federal rules restrict any use of the information to criminally investigate or prosecute any alcohol or drug abuse patient.[facility] HospitalIn the event this information is protected by the Federal Confidentiality of Alcohol and Drug Abuse Patient Records regulations: The Federal rules restrict any use of the information to criminally investigate or prosecute any alcohol or drug abuse patient.[facility] HospitalIn the event this information is protected by the Federal Confidentiality of Alcohol and Drug Abuse Patient Records regulations: The Federal rules restrict any use of the information to criminally investigate or prosecute any alcohol or drug abuse patient.[facility] the event this information is protected by the Federal Confidentiality of Alcohol and Drug Abuse Patient Records regulations: The Federal rules restrict any use of the information to criminally investigate or prosecute any alcohol or drug abuse patient.[facility] HospitalIn the event this information is protected by the Federal Confidentiality of Alcohol and Drug Abuse Patient Records regulations: The Federal rules restrict any use of the information to criminally investigate or prosecute any alcohol or drug abuse patient.[facility] HospitalIn the event this information is protected by the Federal Confidentiality of Alcohol and Drug Abuse Patient Records regulations: The Federal rules restrict any use of the information to criminally investigate or prosecute any alcohol or drug abuse patient.[facility]In the event this information is protected by the Federal Confidentiality of Alcohol and Drug Abuse Patient Records regulations: The Federal rules restrict any use of the information to criminally investigate or prosecute any alcohol or drug abuse patient.[facility] HospitalIn the event this information is protected by the Federal Confidentiality of Alcohol and Drug Abuse Patient Records regulations: The Federal rules restrict any use of the information to criminally investigate or prosecute any alcohol or drug abuse patient.[facility] HospitalIn the event this information is protected by the Federal Confidentiality of Alcohol and Drug Abuse Patient Records regulations: The Federal rules restrict any use of the information to criminally investigate or prosecute any alcohol or drug abuse patient.[facility] HospitalIn the event this information is protected by the Federal Confidentiality of Alcohol and Drug Abuse Patient Records regulations: The Federal rules restrict any use of the information to criminally investigate or prosecute any alcohol or drug abuse patient.[facility] HospitalIn the event this information is protected by the Federal Confidentiality of Alcohol and Drug Abuse Patient Records regulations: The Federal rules restrict any use of the information to criminally investigate or prosecute any alcohol or drug abuse patient.[facility] HospitalIn the event this information is protected by the Federal Confidentiality of Alcohol and Drug Abuse Patient Records regulations: The Federal rules restrict any use of the information to criminally investigate or prosecute any alcohol or drug abuse patient.[facility] HospitalIn the event this information is protected by the Federal Confidentiality of Alcohol and Drug Abuse Patient Records regulations: The Federal rules restrict any use of the information to criminally investigate or prosecute any alcohol or drug abuse patient.[facility] HospitalIn the event this information is protected by the Federal Confidentiality of Alcohol and Drug Abuse Patient Records regulations: The Federal rules restrict any use of the information to criminally investigate or prosecute any alcohol or drug abuse patient.[facility] HospitalIn the event this information is protected by the Federal Confidentiality of Alcohol and Drug Abuse Patient Records regulations: The Federal rules restrict any use of the information to criminally investigate or prosecute any alcohol or drug abuse patient.[facility] HospitalIn the event this information is protected by the Federal Confidentiality of Alcohol and Drug Abuse Patient Records regulations: The Federal rules restrict any use of the information to criminally investigate or prosecute any alcohol or drug abuse patient.[facility] HospitalIn the event this information is protected by the Federal Confidentiality of Alcohol and Drug Abuse Patient Records regulations: The Federal rules restrict any use of the information to criminally investigate or prosecute any alcohol or drug abuse patient.[facility] HospitalIn the event this information is protected by the Federal Confidentiality of Alcohol and Drug Abuse Patient Records regulations: The Federal rules restrict any use of the information to criminally investigate or prosecute any alcohol or drug abuse patient.[facility] HospitalIn the event this information is protected by the Federal Confidentiality of Alcohol and Drug Abuse Patient Records regulations: The Federal rules restrict any use of the information to criminally investigate or prosecute any alcohol or drug abuse patient.[facility] HospitalIn the event this information is protected by the Federal Confidentiality of Alcohol and Drug Abuse Patient Records regulations: The Federal rules restrict any use of the information to criminally investigate or prosecute any alcohol or drug abuse patient.[facility] HospitalIn the event this information is protected by the Federal Confidentiality of Alcohol and Drug Abuse Patient Records regulations: The Federal rules restrict any use of the information to criminally investigate or prosecute any alcohol or drug abuse patient.[facility] HospitalIn the event this information is protected by the Federal Confidentiality of Alcohol and Drug Abuse Patient Records regulations: The Federal rules restrict any use of the information to criminally investigate or prosecute any alcohol or drug abuse patient.[facility] HospitalIn the event this information is protected by the Federal Confidentiality of Alcohol and Drug Abuse Patient Records regulations: The Federal rules restrict any use of the information to criminally investigate or prosecute any alcohol or drug abuse patient.[facility] HospitalIn the event this information is protected by the Federal Confidentiality of Alcohol and Drug Abuse Patient Records regulations: The Federal rules restrict any use of the information to criminally investigate or prosecute any alcohol or drug abuse patient.[facility] HospitalIn the event this information is protected by the Federal Confidentiality of Alcohol and Drug Abuse Patient Records regulations: The Federal rules restrict any use of the information to criminally investigate or prosecute any alcohol or drug abuse patient.[facility] HospitalIn the event this information is protected by the Federal Confidentiality of Alcohol and Drug Abuse Patient Records regulations: The Federal rules restrict any use of the information to criminally investigate or prosecute any alcohol or drug abuse patient.[facility] Reason for Visit (unrecogniz ed section [...] NEW HIGH MDM 60 MINUTES Older, Angelika, [employer] 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.[employer] [address] [place] [address] Referral ID Status Reason Start Date Expiration Date V isits Requested Visits Authorized [id number] Closed PCP Requested Referral 06/02/2023 06/01/2024 1 1 Reason Comments Injection Questions Reason Comments Chest pressure Reason Comments Accurate Medical-Lift Chair Reason Comments Orders Reason Comments [facility] Reason Comments Medication Question Reason Comments Toothache Reason Comments Orders Appointment Reason Comments Follow Up needs lift chair, st [facility] lift chair order needs reworded Reason Onset Date Comments Refill Request 02/25/2024 Reason Comments Erroneous encounter-disregard Reason Comments Results fax form for lift chair Reason Comments Orders walker Reason Comments Follow Up Vertigo, ringing in ena ears Reason Comments Angel Wheat paperwork Reason Comments Medication Problem Reason Onset Date Comments Refill Request 09/08/2024 Reason Comments Vertigo Ringing In Ear(s) bilateral Specialty Diagnoses / Procedures Referred By Contac t Referred To Contact Diagnoses Other specified hearing loss, unspecified ear Procedures HEARING TEST/AUDIOGRAM COMPRE AUDIOMETRY THRESHOLD EVAL SP Doni Pritchett PA-C [address] [place] [address] Phone: tel: [facility] [place] [address] [place] [address] Referral ID Status Reason Start Date Expiration Date V isits Requested Visits Authorized [id number] Closed Auto-Generate d Referral 07/19/2024 07/20/2025 1 1 Reason Comments Ringing In Ear(s) Constant bilateral r inging x years Specialty Diagnoses / Procedures Referred By Contac t Referred To Contact Ent - Otolaryngology Diagnoses Dizziness Tinnitus, bilateral Procedures OFFICE/OUTPATIENT NEW HIGH MDM 60 MINUTES Katie, LOULOU Carney.[employer]ISHINGS CONSERVATOR [address] [place] [address] Phone: tel: fax: Referral ID Status Reason Start Date Expiration Date V isits Requested Visits Authorized [id number] Closed PCP Requested Referral 07/14/2024 07/14/2025 1 1 Care Teams (unrecognized sec tion and content) Second Hand Relationship Specialty Start Date End Date Nigel Carrillo MD [address] [place], [place] [id number] PCP - General Internal Medicine 03/18/20 Second Hand Relationship Specialty Start Date End Date Nigel Carrillo MD [address] [place], [place] [id number] PCP - General Internal Medicine 03/18/20 Second Hand Relationship Specialty Start Date End Date Nigel Carrillo MD [address] [place] [address] PCP - General Internal Medicine 03/18/20 Second Hand Relationship Specialty Start Date End Date Nigel Carrillo MD [address] [place] [address] PCP - General Internal Medicine 03/18/20 Second Hand Relationship Specialty Start Date End Date Nigel Carrillo MD [address] [place] [address] PCP - General Internal Medicine 03/18/20 Second Hand Relationship Specialty Start Date End Date Nigel Carrillo MD [address] [place] [address] PCP - General Internal Medicine 03/18/20 Second Hand Relationship Specialty Start Date End Date Nigel Carrillo MD [address] [place] [address] PCP - General Internal Medicine 03/18/20 Second Hand Relationship Specialty Start Date End Date Nigel Carrillo MD [address] [facility] [place] [address] PCP - General Internal Medicine 03/18/20 Second Hand Relationship Specialty Start Date End Date Nigel Carrillo MD [address] [facility] [place] [address] PCP - General Internal Medicine 03/18/20 Second Hand Relationship Specialty Start Date End Date Nigel Carrillo MD [address] [place] [address] PCP - General Internal Medicine 03/18/20 Second Hand Relationship Specialty Start Date End Date Nigel Carrillo MD [address] [place] [address] PCP - General Internal Medicine 03/18/20 Second Hand Relationship Specialty Start Date End Date Nigel Carrillo MD [address] [facility] [place] [address] PCP - General Internal Medicine 03/18/20 Second Hand Relationship Specialty Start Date End Date Nigel Carrillo MD [address] [facility] [place] [address] PCP - General Internal Medicine 03/18/20 Second Hand Relationship Specialty Start Date End Date Nigel Carrillo MD [address] [facility] [place] [address] PCP - General Internal Medicine 03/18/20 Second Hand Relationship Specialty Start Date End Date Nigel Carrillo MD [address] [facility] [place] [address] PCP - General Internal Medicine 03/18/20 Second Hand Relationship Specialty Start Date End Date Nigel Carrillo MD [address] [facility] [place] [address] PCP - General Internal Medicine 03/18/20 Second Hand Relationship Specialty Start Date End Date Nigel Carrillo MD [address] [facility] [place] [address] PCP - General Internal Medicine 03/18/20 Second Hand Relationship Specialty Start Date End Date Nigel Carrillo MD [address] [facility] [place] [address] PCP - General Internal Medicine 03/18/20 Second Hand Relationship Specialty Start Date End Date Nigel Carrillo MD [address] [facility] [place] [address] PCP - General Internal Medicine 03/18/20 Second Hand Relationship Specialty Start Date End Date Nigel Carrillo MD [address] [facility] [place] [address] PCP - General Internal Medicine 03/18/20 Second Hand Relationship Specialty Start Date End Date Nigel Carrillo MD [address] [facility] [place] [address] PCP - General Internal Medicine 03/18/20 Second Hand Relationship Specialty Start Date End Date Nigel Carrillo MD [address] [facility] [place] [address] PCP - General Internal Medicine 03/18/20 Second Hand Relationship Specialty Start Date End Date Nigel Carrillo MD [address] [facility] [place] [address] PCP - General Internal Medicine 03/18/20 Second Hand Relationship Specialty Start Date End Date Nigel Carrillo MD [address] [facility] [place] [address] PCP - General Internal Medicine 03/18/20 Second Hand Relationship Specialty Start Date End Date Nigel Carrillo MD [address] [facility] [place] [address] PCP - General Internal Medicine 03/18/20 Second Hand Relationship Specialty Start Date End Date Nigel Carrillo MD [address] [facility] [place] [address] PCP - General Internal Medicine 03/18/20 Team Status: Active Member Role Status Dates [facility] Family Provider Active Dr. Nigel Carrillo MD Primary Care Provider Active Team Status: Inactive Member Role Status Dates Dr. Nigel Carrillo MD Primary Care Provider, Referring Provider Active Dr. Ryne Oliveira MD Attending Provider Active Team Status: Inactive Member Role Status Dates Dr. Nigel Carrillo MD Primary Care Provider Active Dr. Perez Boggs , DO Emergency Provider Active Second Hand Relationship Specialty Start Date End Date Nigel Carrillo MD [address] [place] [address] PCP - General Internal Medicine 03/18/20 Second Hand Relationship Specialty Start Date End Date Nigel Carrillo MD [address] [place] [address] PCP - General Internal Medicine 03/18/20 Second Hand Relationship Specialty Start Date End Date Nigel Carrillo MD [address] [place] [address] PCP - General Internal Medicine 03/18/20 Second Hand Relationship Specialty Start Date End Date Nigel Carrillo MD [address] [place] [address] PCP - General Internal Medicine 03/18/20 Second Hand Relationship Specialty Start Date End Date Nigel Carrillo MD [address] [place] [address] PCP - General Internal Medicine 03/18/20 Second Hand Relationship Specialty Start Date End Date Nigel Carrillo MD [address] [place] [address] PCP - General Internal Medicine 03/18/20 Second Hand Relationship Specialty Start Date End Date Nigel Carrillo MD [address] [place] [address] PCP - General Internal Medicine 03/18/20 Second Hand Relationship Specialty Start Date End Date Nigel Carrillo MD [address] [place] [address] PCP - General Internal Medicine 03/18/20 Delmi Elder PA-C [address] [place] [address] Human Resources Partner Family Medicine 01/16/24 Angelika Wilson APRN.FURNISHINGS CONSERVATOR [address] [place] [address] Human Resources Partner Internal Medicine 01/16/24 Trena Knight PA-C [address] [place] [address] Human Resources Partner Family Medicine 01/16/24 Second Hand Relationship Specialty Start Date End Date Nigel Carrillo MD [address] [place] [address] PCP - General Internal Medicine 03/18/20 Delmi Elder PA-C [address] [place] [address] Human Resources Partner Family Medicine 01/16/24 Angelika Wilson, LOULOU.FURNISHINGS CONSERVATOR [address] [place] [address] Human Resources Partner Internal Medicine 01/16/24 Trena Knight PA-C [address] [place] [address] Human Resources Partner Family Medicine 01/16/24 Second Hand Relationship Specialty Start Date End Date Nigel Carrillo MD [address] [place] [address] PCP - General Internal Medicine 03/18/20 Delmi Elder PA-C [address] [place] [address] Human Resources Partner Family Medicine 01/16/24 Angelika Wilson APRN.FURNISHINGS CONSERVATOR [address] [facility] [place] [address] Human Resources Partner Internal Medicine 01/16/24 Trena Knight PA-C [address] [facility] [place] [address] Human Resources Partner Family Medicine 01/16/24 Second Hand Relationship Specialty Start Date End Date Nigel Carrillo MD [address] [place] [address] PCP - General Internal Medicine 03/18/20 Delmi Elder PA-C [address] [place] [address] Human Resources Partner Family Medicine 01/16/24 Angelika Wilson APRN.FURNISHINGS CONSERVATOR [address] [facility] [place] [address] Human Resources Partner Internal Medicine 01/16/24 Trena Knight PA-C [address] [facility] [place] [address] Human Resources Partner Family Medicine 01/16/24 Second Hand Relationship Specialty Start Date End Date Nigel Carrillo MD [address] [facility] [place] [address] PCP - General Internal Medicine 03/18/20 Angelika Wilson APRN.FURNISHINGS CONSERVATOR [address] [place] [address] Human Resources Partner Internal Medicine 01/16/24 Second Hand Relationship Specialty Start Date End Date Nigel Carrillo MD [address] [place] [address] PCP - General Internal Medicine 03/18/20 Angelika Wilson APRN.FURNISHINGS CONSERVATOR [address] [place] [address] Human Resources Partner Internal Medicine 01/16/24 Second Hand Relationship Specialty Start Date End Date Nigel Carrillo MD [address] [place] [address] PCP - General Internal Medicine 03/18/20 Angelika Wilson, LOULOU.FURNISHINGS CONSERVATOR [address] [place] [address] Human Resources Partner Internal Medicine 01/16/24 Second Hand Relationship Specialty Start Date End Date Nigel Carrillo MD [address] [place] [address] PCP - General Internal Medicine 03/18/20 Angelika Wilson, PRINT LINE INSPECTOR.FURNISHINGS CONSERVATOR [address] [place] [address] Human Resources Partner Internal Medicine 01/16/24 Second Hand Relationship Specialty Start Date End Date Nigel Carrillo MD [address] [place] [address] PCP - General Internal Medicine 03/18/20 Angelika Wilson, PRINT LINE INSPECTOR.FURNISHINGS CONSERVATOR [address] [place] [address] Human Resources Partner Internal Medicine 01/16/24 Second Hand Relationship Specialty Start Date End Date Nigel Carrillo MD [address] [place] [address] PCP - General Internal Medicine 03/18/20 Angelika Wilson, PRINT LINE INSPECTOR.FURNISHINGS CONSERVATOR [address] [place] [address] Human Resources Partner Internal Medicine 01/16/24 Second Hand Relationship Specialty Start Date End Date iNgel Carrillo MD [address] [place] [address] PCP - General Internal Medicine 03/18/20 Angelika Wilson, PRINT LINE INSPECTOR.FURNISHINGS CONSERVATOR [address] [place] [address] Human Resources Partner Internal Medicine 01/16/24 Second Hand Relationship Specialty Start Date End Date Nigel Carrillo MD [address] [place] [address] PCP - General Internal Medicine 03/18/20 Aneglika Wilson, PRINT LINE INSPECTOR.FURNISHINGS CONSERVATOR [address] [place] [address] Human Resources Partner Internal Medicine 01/16/24 Second Hand Relationship Specialty Start Date End Date Nigel Carrillo MD [address] [place] [address] PCP - General Internal Medicine 03/18/20 Angelika Wilson, PRINT LINE INSPECTOR.FURNISHINGS CONSERVATOR [address] [place] [address] Human Resources Partner Internal Medicine 01/16/24 Second Hand Relationship Specialty Start Date End Date Nigel Carrillo MD [address] [place] [address] PCP - General Internal Medicine 03/18/20 Angelika Wilson APRN.FURNISHINGS CONSERVATOR [address] [place] [address] Human Resources Partner Internal Medicine 01/16/24 Second Hand Relationship Specialty Start Date End Date Nigel Carrillo MD [address] [place], [place] [address] PCP - General Internal Medicine 03/18/20 Angelika Wilson APRN.FURNISHINGS CONSERVATOR [address] [place], [place] [address] Human Resources Partner Internal Medicine 01/16/24 Goals (unrecognized section and [...] BE BASED ON THE PRIMARY CLINICAL RECORDS. [employer] [facility]. provides no warranty or guarantee of the accuracy or completeness of information in this document.
[2025-01-01 08:09] LABS: Mucous, Urine 0 SEEN /hpf (<or=2+); Red Blood Cells-Urine 0 SEEN /hpf (0-5)
[2025-01-01 08:13] LABS: Hematocrit 42.8 % (37-47); Hemoglobin 14.1 g/dL (12.0-15.0); Immature Granulocytes Count 0.020 X10^3/uL (0.0-0.0); Mean Corp Hgb Conc 32.9 g/dL (32-36); Mean Corpuscular Volume 93.2 fL (81-99); Mean Platelet Vol. 10.3 fl (6.2-12.0); NRBC Flagged by Analyzer 0 % (0-5); Platelet Count 184 K/mm3 (150-450); RBC Distribution Width CV 12.9 % (11.6-14.6); RBC Distribution Width SD 44.0 fl (35.1-43.9); Red Blood Count 4.59 M/mm3 (4.2-5.4); White Blood Count 4.9 K/mm3 (4.4-11.0)
[2025-01-01 08:16] LABS: Color, Urine Yellow (Yellow); Glucose, Dipstick Normal (Normal); Ketone-Dipstick Negative (Negative); Leukocyte Esterase-Dipstick 25 /ul (Negative); Nitrite-Dipstick Negative (Negative); Occult Blood-Urine 10 /ul (Negative); Protein-Dipstick Negative (Negative); Specific Gravity, Urine 1.010 (1.002-1.030); Urine Bilirubin Dipstick Negative (Negative)
[2025-01-01 08:24] LABS: Squamous Epithelial Cells - UA 0-5 SEEN /hpf (5-10)
[2025-01-01 08:33] LABS: AST(SGOT) 24 U/L (<=31); Alanine Aminotransfer ALT/SGPT 23 U/L (<=34); Albumin, Serum 3.9 g/dL (3.4-4.8); Alkaline Phosphatase 60 U/L (35-104); Amylase 22 U/L (28-100); Anion Gap 12 (5-15); BUN 20 mg/dL (4-19); BUN/Creat Ratio 18.0 RATIO (10-20); Calcium,Total 9.2 mg/dL (7.6-11.0); Carbon Dioxide 25.7 mmol/L (21.0-32.0); Chloride 99 mmol/L (98-108); Globulin 3.7 g/dL (2.2-4.2); Glucose 100 mg/dL (70-99); Lipase 35 U/L (13-75); Potassium 4.3 mmol/L (3.3-5.1)
== END ==
LOC: OLS.SWAL 05:00
PROVIDERS: PCP Internal Medicine; Visit Provider Internal Medicine
DX: E03.9 Hypothyroidism, unspecified (principal); H81.13 Benign paroxysmal vertigo, bilateral; R39.9 Unspecified symptoms and signs involving the genitourinary system
CPT/HCPCS: 36415; 80053; 81001; 82150; 83690; 85025; 87077; 87086; 87088; 87186